=== PATIENT | female | born 1975 | race Caucasian/White ===

== ENCOUNTER 2021-11-21 03:56 | Emergency (ER) | payer OTHER, SELFPAY ==
[2021-11-21 03:58] VITALS: BP 113/78; PULSE 88; RESP 18; TEMP 36.6; O2SAT 100
--- NOTE | 2021-11-21 03:58 | ED.PSYCH ---
HPI - Psych General Chief Complaint: Psychiatric Symptoms <Janeth Dotson MD - Last Filed: 11/21/21 07:38> Stated Complaint: SI <Janeth Dotson MD - Last Filed: 11/21/21 07:38> Time Seen by Provider: 11/21/21 03:57 <Janeth Dotson MD - Last Filed: 11/21/21 07:38> Source: patient and EMS <Janeth Dotson MD - Last Filed: 11/21/21 07:38> Mode of arrival: EMS <Janeth Dotson MD - Last Filed: 11/21/21 07:38> Limitations: no limitations <Janeth Dotson MD - Last Filed: 11/21/21 07:38> History of Present Illness HPI Narrative: Patient presenting for evaluation of suicidal thoughts after drinking alcohol tonight and ingesting 8 xanax. Pt states that she feels that the world would be a better place without her. After taking the medication and drinking wine tonight, the patient presented to the police department and then EMS was contacted by PD. Pt transported here in stable condition. Pt endorsing many stressors including financial, family stressors. Patient states that she feels like she is burdensome to her family. Patient reported that she took the Xanax and drank wine tonight, and then when she laid down thought that it would be good if she did not wake up. Then when questioned if she reports feeling suicidal she denies overtly. Patient reports that she feels hopelessness in her daily life. Reports strained relationships with her mother, children. Patient does live in a duplex, she is not homeless. She denies other drug use. Patient denies history of suicide attempt in the past. <Janeth Dotson MD - Last Filed: 11/21/21 07:38> Related Data Home Medications: Home Medications Medication Instructions Recorded Confirmed eszopiclone mg 07/21/19 08/02/19 <Janeth Dotson MD - Last Filed: 11/21/21 07:38> Allergies/Adverse Reactions: Allergies Allergy/AdvReac Type Severity Reaction Status Date / Time No Known Allergies Allergy Verified 09/13/18 05:17 <Janeth Dotson MD - Last Filed: 11/21/21 07:38> Review of Systems Review of Systems: CONSTITUTIONAL: Denies fever, chills, or sweats. ENT: Denies rhinorrhea, congestion, sore throat, or otalgia. CARDIOVASCULAR: Denies chest pain, palpitations, or edema. RESPIRATORY: Denies cough or dyspnea. GASTROINTESTINAL: Denies abdominal pain, nausea, vomiting, or diarrhea. GENITOURINARY: Denies dysuria or hematuria. SKIN: Denies rash or itching. MUSCULOSKELETAL: Denies back pain, joint pain, or myalgia. NEUROLOGIC: Denies headache, numbness, or weakness. PSYCHIATRIC: Reports anxiety and depression <Janeth Dotson MD - Last Filed: 11/21/21 07:38> COUNT INCLUDES THE [facility] Past Medical History Medical History: Medical History Anxiety Crohn's colitis Depression Deviated septum History of GI bleed History of inguinal hernia x2 History of pneumonia History of sigmoidoscopy Hx of hemorrhoids Hx of intestinal obstruction Hx of ulcerative colitis Hx: UTI (urinary tract infection) IBS (irritable bowel syndrome) <Janeth Dotson MD - Last Filed: 11/21/21 07:38> Surgical History Surgical History: Surgical History History of appendectomy History of colonoscopy History of hysterectomy History of inguinal hernia repair x2 History of lumpectomy <Janeth Dotson MD - Last Filed: 11/21/21 07:38> Family History Family History: Family History Mother Hypertension Grandparent Heart disease Heart attack Colon cancer Grandparent Hypertension COPD (chronic obstructive pulmonary disease) Other Cerebrovascular accident Family history of cardiovascular disease <Janeth Dotson MD - Last Filed: 11/21/21 07:38> Social History Social History: Social History Smoking p
--- NOTE | 2021-11-21 05:06 | PC.NURSE ---
PT STATES SHE FORGOT TO USE THE SAMPLE CUP WHEN SHE USED THE BATHROOM.
[2021-11-21 05:21] LABS: Basophils Absolute Auto 0.1 K/mm3 (0.0-0.1); Basophils Percent Auto 0.8 % (0.2-1.2); Eosinophils Absolute Auto 0.1 K/mm3 (0-0.3); Eosinophils Percent Auto 0.6 % (0-4.4); Hematocrit 42.2 % (37.0-47.0); Hemoglobin 14.5 g/dL (12.0-15.0); Immature Granulocyte Absolute 0.06 K/mm3 (0.00-0.031); Immature Granulocyte Percent A 0.6 % (0-0.5); Lymphocytes Absolute Auto 2.77 K/mm3 (0.9-3.2); Lymphocytes Percent Auto 29.4 % (18.3-44.2); Mean Corpuscular HGB Conc 34.4 g/dl (32-36); Mean Corpuscular Hemoglobin 32.4 pg (26-34); Mean Corpuscular Volume 94.4 fl (80-100); Mean Platelet Volume 9.1 fl (7.4-10.4); Monocytes Absolute Auto 0.6 K/mm3 (0.1-0.6); Monocytes Percent Auto 6.5 % (2.6-8.5); Neutrophils Absolute Auto 5.9 K/mm3 (1.3-6.7); Neutrophils Percent Auto 62.1 % (45.5-73.1); Platelet Count Result 369 k/mm3 (150-375); Red Blood Count 4.47 M/mm3 (4.2-5.4); Red Cell Distribution Width 13.1 % (11.5-14.5); White Blood Count 9.4 K/mm3 (4.5-10.0)
[2021-11-21 05:34] LABS: Alanine Aminotransferase 18 U/L (4-35); Albumin Level 4.1 g/dL (3.5-5.1); Alkaline Phosphatase 100 U/L (38-126); Anion Gap 7 mmol/L (8-16); Aspartate Amino Transferase 26 U/L (14-36); Bilirubin,Total 0.1 mg/dL (0.2-1.3); Blood Urea Nitrogen 10 mg/dL (7-17); Calcium 9.2 mg/dL (8.4-10.2); Carbon Dioxide 27 mmol/L (22-30); Chloride 105 mmol/L (98-107); Estimated CRCL calculation 85 ml/min; Estimated Glomerular Filt Rate > 60; Ethanol 71 mg/dL (<10); Glucose 85 mg/dL (65-110); Sodium 139 mmol/L (137-145)
[2021-11-21 05:46] LABS: Appearance Urine Clear (Clear); Bilirubin Urine Negative (Negative); Blood Urine 1+ (Negative); Color Urine Yellow (Yellow); Glucose Urine UA Negative (Negative); Ketones Urine Negative (Negative); Leukocyte Esterase Ur Negative LEU/UL (Negative); Nitrate Urine Negative (Negative); Protein Urine Negative (Negative); Specific Grav Ur 1.025 (1.001-1.035); Urobilinogen Urine 0.2 mg/dL (<2.0); pH Urine 5.5 (5.0-9.0)
[2021-11-21 05:52] LABS: Mucus Urine Rare /lpf; Squamous Epithelial Cell Urine Few /hpf (Few); WBC Urine 0-3 /hpf
[2021-11-21 05:59] LABS: Add Urine Microscopic? YES
[2021-11-21 06:06] LABS: Amphetamine Screen Urine Positive (Negative); Barbiturate Screen Urine Negative (Negative); Benzodiazepines Screen Urine Positive (Negative); Cannabinoid Screen Urine Negative (Negative); Cocaine Screen Urine Negative (Negative); Methadone Screen Urine Negative (Negative); Opiate Screen Urine Negative (Negative); Phencyclidine Screen Urine Negative (Negative)
[2021-11-21 06:20] LABS: SARS-CoV-2 RNA PCR Negative
--- NOTE | 2021-11-21 06:22 | PC.NURSE ---
[facility] at [facility] notified that patient is medically cleared and needs to be evaluated at this time.
[2021-11-21 08:05] VITALS: BP 132/74; PULSE 86; RESP 14; O2SAT 99
[2021-11-21 09:13] LABS: Acetaminophen < 10 ug/mL (10-30); Salicylate < 1.0 mg/dL (2-20)
--- NOTE | 2021-11-21 09:55 | PC.NURSE ---
pt being made involuntary per Dr Dotson [facility] aware
--- NOTE | 2021-11-21 10:00 | PC.NURSE ---
pt noted to be in bed resting, chest rise and fall noted.
--- NOTE | 2021-11-21 11:11 | PC.NURSE ---
Paperwork faxed to [facility], and Elvis at this time.
--- NOTE | 2021-11-21 13:51 | PC.NURSE ---
call to Poison Control per request of [facility] has passed, cleared their protocol, pt is medically clear per Poison Control spoke with Rut.
--- NOTE | 2021-11-21 14:15 | PC.NURSE ---
pt somewhat upset about the need to stay and be transferred for evaluation, crying and in disagreement. educated on decision making of provider. aware of involuntary status. Back in room asked for security to sit close due to elopement possibility
--- NOTE | 2021-11-21 15:50 | PC.NURSE ---
PT ACCEPTED BY DR COTA AT [facility] PT WILL GO TO [facility] [phone] FOR REPORT ASKED US TO CALL AT [phone] FOR REPORT
--- NOTE | 2021-11-21 16:58 | PC.NURSE ---
[facility] accepted transfer to [place] eta 45min
[2021-11-21] MEDS: LORazepam (*CRX) 1 MG TABLET PO (17:50)
--- NOTE | 2021-11-21 18:04 | PC.NURSE ---
JUSTIN FROM DR ACEVEDO FOR ATIVAN 1MG PO PRIOR TO DEPT TO [facility]
--- NOTE | 2021-11-21 18:05 | PC.NURSE ---
PT GAVE MOTHER ALVARADO RING WITH KEYS ATTACHED PRIOR TO DEPARTING THE UNIT
== END 2021-11-21 18:07 ==
PROVIDERS: Emergency Provider Emergency Medicine; PCP Internal Medicine
DX: T42.4X2A Poisoning by benzodiazepines, intentional self-harm, initial encounter (principal); T51.0X2A Toxic effect of ethanol, intentional self-harm, initial encounter; F32.A Depression, unspecified; Z20.822 Contact with and (suspected) exposure to COVID-19
CPT/HCPCS: 36415; 80053; 80307; 81001; 81025; 84443; 85025; 99285; A9270; C9803; U0003; U0005

== ENCOUNTER 2022-12-10 17:54 | Emergency (ER) | payer OTHER, SELFPAY ==
--- NOTE | ~2022-12-10 | XR_ITS ---
EXAMINATION: XR chest 2V Exam Date/Time: 12/10/2022 18:45 CDT HISTORY: post covid prod cough x 4 days smokes and vapes Comparison: 11/18/2006. RESULT: Lines, tubes, and devices: None. Lungs and pleura: Clear. Cardiomediastinal silhouette: Stable. Other: No acute osseous or upper abdominal finding. IMPRESSION: No acute cardiopulmonary process. Reviewed, dictated and finalized at location K.
--- NOTE | 2022-12-10 17:58 | ED.SOB ---
HPI - SOB/Dyspnea General Chief Complaint: Shortness of Breath/Dyspnea Stated Complaint: SOB Time Seen by Provider: 12/10/22 18:18 Source: patient and RN notes reviewed Mode of arrival: ambulatory Limitations: no limitations History of Present Illness HPI Narrative: 47-year-old female presents concern for cough, shortness of breath, ?lung pain? in the back left side. She reports she got diagnosed with COVID on Thursday. She reports she has been taking Paxil of it, she has 1 dose left. She reports she started feeling a little bit better, and then has started feeling slightly worse with a productive cough. Reports her mother who also has COVID is currently hospitalized with pneumonia. She reports she has been taking Motrin as well MD elicited complaint: shortness of breath and cough Related Data Home Medications Medication Instructions Recorded Confirmed estradiol 1 mg tablet 1 mg PO DAILY 09/11/22 12/10/22 lorazepam 1 mg tablet 1 mg PO DAILY 09/11/22 12/10/22 methylphenidate HCl 36 mg 36 mg PO DAILY 12/10/22 12/10/22 tablet,extended release 24 hr (Concerta) nirmatrelvir 150 mg-ritonavir 100 1 ea PO DAILY 12/10/22 12/10/22 mg tablets in a dose pack (EUA) (Paxlovid) pravastatin 40 mg tablet 40 mg PO DAILY 12/10/22 12/10/22 Allergies Allergy/AdvReac Type Severity Reaction Status Date / Time No Known Allergies Allergy Verified 12/10/22 18:03 Review of Systems Review of Systems: CONSTITUTIONAL: Reports malaise, chills, sweats, fatigue, lightheadedness EYES: Denies visual changes, redness, or discharge. ENT: Reports rhinorrhea, congestion, sinus pain, otalgia and sore throat. CARDIOVASCULAR: Denies chest pain or edema. Reports fast heartbeat RESPIRATORY: Reports cough, exertional dyspnea. GASTROINTESTINAL: Denies abdominal pain, nausea, vomiting, diarrhea SKIN: Denies rash or itching. MUSCULOSKELETAL: Reports myalgia. NEUROLOGIC: Denies headache. All systems reviewed & are unremarkable except as noted in HPI and below PMFSH Past Medical History Medical History Anxiety Crohn's colitis Depression Deviated septum History of GI bleed History of inguinal hernia x2 History of pneumonia History of sigmoidoscopy Hx of hemorrhoids Hx of intestinal obstruction Hx of ulcerative colitis Hx: UTI (urinary tract infection) IBS (irritable bowel syndrome) Surgical History Surgical History History of appendectomy History of colonoscopy History of hysterectomy History of inguinal hernia repair x2 History of lumpectomy Family History Family History Mother Hypertension Grandparent Heart disease Heart attack Colon cancer Grandparent Hypertension COPD (chronic obstructive pulmonary disease) Other Cerebrovascular accident Family history of cardiovascular disease Social History Social History (Updated 09/11/22 @ 08:15 by ALAN Farmer) Smoking packs per day: 0.5 Smoking cigarettes per day: 10.0 Smoking status: Current every day smoker Alcohol intake: current Alcohol use details: occasional glass of wine Substance use type: prescription drug and other Lack of Transportation: No Lack of Food: Never True Current Housing: I Have Housing Concerned About Future Housing: No Difficulty Paying Gas/Electric Bills: No Difficulty Paying for Meds: No Currently Unemployed: No Education: Trade/Vocational Certificate Difficulty w/ Childcare or Family Care: No Gender identity (if verbalized by the patient): Female Comments At time of signature, agree with nursing past medical, surgical, social and family history. There is no relevant family history pertinent to the presenting complaint Exam Narrative: GENERAL: Well-appearing, well-nourished, and in no acute distress. HEAD: Normocephalic EYES:
[2022-12-10 18:04] VITALS: BP 120/77; PULSE 112; RESP 16; TEMP 37.4; O2SAT 99
== END 2022-12-10 19:38 | disposition home or self-care (01) ==
PROVIDERS: Emergency Provider Nurse Practitioner; PCP Family Medicine
DX: R05.9 Cough, unspecified (principal); F17.210 Nicotine dependence, cigarettes, uncomplicated; F41.9 Anxiety disorder, unspecified; K50.90 Crohn's disease, unspecified, without complications
CPT/HCPCS: 71046; 81003; 99213; G0463

== ENCOUNTER 2023-05-21 14:17 | Emergency (ER) | payer OTHER, SELFPAY ==
--- NOTE | ~2023-05-21 | XR_ITS ---
EXAMINATION: XR chest 1V portable INDICATION: Shortness of breath, COVID 19 positive TECHNIQUE: Portable AP chest at 1527 hours COMPARISON: 12/10/2022 FINDINGS: There are minimal airspace opacities in the left lung base. No pleural effusion or pneumoth orax. The cardiomediastinal silhouette is normal. IMPRESSION: 1. Minimal left basilar airspace opacity, consistent with atelectasis versus pneumonia. Reviewed, dictated and finalized at location A. IMPRESSION: 1. Minimal left basilar airspace opacity, consistent with atelectasis versus pn eumonia.
[2023-05-21 14:27] VITALS: BP 121/86; PULSE 99; RESP 18; TEMP 36.8; O2SAT 100
[2023-05-21 15:41] LABS: Basophils Absolute Auto 0.1 K/mm3 (0.0-0.1); Basophils Percent Auto 0.6 % (0.2-1.2); Eosinophils Percent Auto 0.2 % (0-4.4); Hematocrit 39.1 % (37.0-47.0); Hemoglobin 13.1 g/dL (12.0-15.0); Immature Granulocyte Absolute 0.02 K/mm3 (0.00-0.031); Immature Granulocyte Percent A 0.2 % (0-0.5); Lymphocytes Absolute Auto 1.02 K/mm3 (0.9-3.2); Lymphocytes Percent Auto 11.2 % (18.3-44.2); Mean Corpuscular HGB Conc 33.5 g/dl (32-36); Mean Corpuscular Hemoglobin 31.3 pg (26-34); Mean Corpuscular Volume 93.5 fl (80-100); Mean Platelet Volume 8.9 fl (7.4-10.4); Monocytes Absolute Auto 0.6 K/mm3 (0.1-0.6); Monocytes Percent Auto 6.8 % (2.6-8.5); Neutrophils Absolute Auto 7.4 K/mm3 (1.3-6.7); Platelet Count Result 345 k/mm3 (150-375); Red Blood Count 4.18 M/mm3 (4.2-5.4); Red Cell Distribution Width 12.9 % (11.5-14.5); White Blood Count 9.1 K/mm3 (4.5-10.0)
[2023-05-21 15:51] LABS: Alanine Aminotransferase 18 U/L (6-35); Albumin Level 4.4 g/dL (3.5-5.1); Alkaline Phosphatase 79 U/L (38-126); Anion Gap 7 mmol/L (8-16); Aspartate Amino Transferase 30 U/L (14-36); Bilirubin,Total 0.6 mg/dL (0.2-1.3); Blood Urea Nitrogen 7 mg/dL (7-17); Carbon Dioxide 24 mmol/L (22-30); Chloride 103 mmol/L (98-107); Estimated CRCL calculation 84 ml/min; Estimated Glomerular Filt Rate > 60; Glucose 107 mg/dL (65-110); Potassium 3.7 mmol/L (3.4-5.0); Sodium 134 mmol/L (137-145)
--- NOTE | 2023-05-21 16:02 | ED.GENADULT ---
HPI - General Adult General Chief complaint: Shortness of Breath/Dyspnea Stated complaint: +covid, SOB Time Seen by Provider: 05/21/23 14:51 Source: patient Mode of arrival: ambulatory Limitations: no limitations History of Present Illness HPI narrative: 48-year-old otherwise healthy here with complaints of generalized body aches, upper back pain, cough, nasal congestion since last few days. 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 She states that her head is foggy as well she did a home COVID test which came back positive Onset (ago): day(s) (2) Severity: moderate Pain Consistency: constant Relieving factors: none Exacerbating factors: none Associated symptoms: cough Related Data Home Medications Medication Instructions Recorded Confirmed estradiol 1 mg tablet 1 mg PO DAILY 09/11/22 12/10/22 lorazepam 1 mg tablet 1 mg PO DAILY 09/11/22 12/10/22 methylphenidate HCl 36 mg 36 mg PO DAILY 12/10/22 12/10/22 tablet,extended release 24 hr (Concerta) nirmatrelvir 150 mg-ritonavir 100 1 ea PO DAILY 12/10/22 12/10/22 mg tablets in a dose pack (Paxlovid) pravastatin 40 mg tablet 40 mg PO DAILY 12/10/22 12/10/22 Allergies Allergy/AdvReac Type Severity Reaction Status Date / Time amoxicillin AdvReac Hives Verified 05/21/23 14:18 Review of Systems Review of Systems: All systems reviewed & are unremarkable except as noted in HPI and below Constitutional: Constitutional: Reports no additional constitutional complaints Eyes: Eyes: Reports no additional eye complaints ENT: Reports system reviewed and no additional complaints, except as documented Cardiovascular: Cardiovascular: Reports no additional cardiovascular complaints Respiratory: Respiratory: Reports no additional respiratory complaints Gastrointestinal: Gastrointestinal: Reports no additional gastrointestinal complaints Musculoskeletal: Musculoskeletal: Reports no additional musculoskeletal complaints Integumentary/Breasts: Skin/Breast: Reports system reviewed and no additional complaints, except as docu Neurologic: Reports system reviewed and no additional complaints, except as documented PMFSH Past Medical History Medical History Anxiety Crohn's colitis Depression Deviated septum History of GI bleed History of inguinal hernia x2 History of pneumonia History of sigmoidoscopy Hx of hemorrhoids Hx of intestinal obstruction Hx of ulcerative colitis Hx: UTI (urinary tract infection) IBS (irritable bowel syndrome) Surgical History Surgical History History of appendectomy History of colonoscopy History of hysterectomy History of inguinal hernia repair x2 History of lumpectomy Family History Family History Mother Hypertension Grandparent Heart disease Heart attack Colon cancer Grandparent Hypertension COPD (chronic obstructive pulmonary disease) Other Cerebrovascular accident Family history of cardiovascular disease Social History Social History Smoking packs per day: 0.5 Smoking cigarettes per day: 10.0 Smoking status: Current every day smoker Alcohol intake: current Alcohol use details: occasional glass of wine Substance use type: prescription drug and other Lack of Transportation: No Lack of Food: Never True Current Housing: I Have Housing Concerned About Future Housing: No Difficulty Paying Gas/Electric Bills: No Difficulty Paying for Meds: No Currently Unemployed: No Education: Trade/Vocational Certificate Difficulty w/ Childcare or Family Care: No Gender identity (if verbalized by the patient): Female Exam Narrative: GENERAL: Well-appearing
== END 2023-05-21 16:32 | disposition home or self-care (01) ==
PROVIDERS: Emergency Provider Family Medicine; PCP Family Medicine
DX: U07.1 COVID-19 (principal); K51.90 Ulcerative colitis, unspecified, without complications; F41.9 Anxiety disorder, unspecified; F32.A Depression, unspecified; F17.210 Nicotine dependence, cigarettes, uncomplicated; Z87.01 Personal history of pneumonia (recurrent); Z87.440 Personal history of urinary (tract) infections; Z90.710 Acquired absence of both cervix and uterus; R91.8 Other nonspecific abnormal finding of lung field
CPT/HCPCS: 36415; 71045; 80053; 85025; 99283

== ENCOUNTER 2024-05-10 18:48 | Emergency (ER) | payer OTHER, MEDICAID, SELFPAY ==
--- NOTE | ~2024-05-10 | XR_ITS ---
EXAMINATION: XR chest 2V DATE: 05/10/2024 19:57 INDICATION: Left upper back pain. Influenza A. TECHNIQUE: PA and lateral views of the chest were obtained. COMPARISON: Chest radiograph dated 05/21/2023 FINDINGS: The lungs are clear with no focal airspace opacities, pulmonary edema, pleural effusion or pneumothor ax. The cardiomediastinal silhouette is normal. Mild S-shaped curvature of the thoracic and lumbar sp ine with mild spondylosis. IMPRESSION: 1. No acute cardiopulmonary disease. Reviewed, dictated and finalized at location A.
[2024-05-10 19:05] VITALS: BP 124/73; PULSE 85; RESP 18; TEMP 36.4; O2SAT 100
--- NOTE | 2024-05-10 19:40 | ECG_ITS ---
Test Date: 2024-05-10 21:13:12 Measurements Intervals [place] Rate: 72 P: 37 OK: 166 QRS: 45 QRSD: 81 T: 30 QT: 369 QTc: 405 Interpretive Statements SINUS RHYTHM NONSPECIFIC T-WAVE ABNORMALITY ABNORMAL ECG No previous ECG available for comparison Electronically Signed On 05-11-2024 10:19:14 CDT by Obie Castro M.D.
--- NOTE | 2024-05-10 20:30 | ED.GENADULT ---
HPI - General Adult General Chief complaint: Unspecified Stated complaint: L shoulder pn, concern for PNA Time Seen by Provider: 05/10/24 19:40 Source: patient Mode of arrival: ambulatory Limitations: no limitations History of Present Illness HPI narrative: Patient is a 49-year-old female who presents the ED with report of left-sided shoulder/upper back pain. Patient reports she was diagnosed with influenza B 2 days ago. She was started on tamiflu. States she has been resting at home and slept for almost 3 days straight. She then woke up this morning with pain throughout her L upper back/scapular region. Pain has been radiating down her L mid back. Has been constant throughout the day. No significant worsening with movement. States she has been diagnosed with pneumonia previously and symptoms felt similar. She does have a mild dry cough. Denies shortness of breath. Denies chest pain. Denies history of blood clots or cardiovascular disease. History of hyperlipidemia. Related Data Home Medications Medication Instructions Recorded Confirmed estradiol 1 mg tablet 1 mg PO DAILY 09/11/22 05/28/23 lorazepam 1 mg tablet 1 mg PO DAILY 09/11/22 05/28/23 methylphenidate HCl 36 mg 36 mg PO DAILY 12/10/22 05/28/23 tablet,extended release 24 hr (Concerta) Allergies Allergy/AdvReac Type Severity Reaction Status Date / Time amoxicillin AdvReac Hives Verified 05/27/23 14:04 Review of Systems Review of Systems: All systems reviewed & are unremarkable except as noted in HPI. All systems reviewed & are unremarkable except as noted in HPI and below PMFSH Past Medical History Medical History Anxiety Crohn's colitis Depression Deviated septum History of GI bleed History of inguinal hernia x2 History of pneumonia History of sigmoidoscopy Hx of hemorrhoids Hx of intestinal obstruction Hx of ulcerative colitis Hx: UTI (urinary tract infection) IBS (irritable bowel syndrome) Surgical History Surgical History History of appendectomy History of colonoscopy History of hysterectomy History of inguinal hernia repair x2 History of lumpectomy Family History Family History Mother Hypertension Grandparent Heart disease Heart attack Colon cancer Grandparent Hypertension COPD (chronic obstructive pulmonary disease) Other Cerebrovascular accident Family history of cardiovascular disease Social History Social History Smoking packs per day: 0.5 Smoking cigarettes per day: 10.0 Smoking status: Current every day smoker Alcohol intake: current Alcohol use details: occasional glass of wine Substance use type: prescription drug and other Lack of Transportation: No Lack of Food: Never True Current Housing: I Have Housing Concerned About Future Housing: No Difficulty Paying Gas/Electric Bills: No Difficulty Paying for Meds: No Currently Unemployed: No Education: Trade/Vocational Certificate Difficulty w/ Childcare or Family Care: No Gender identity (if verbalized by the patient): Female Exam Narrative: GENERAL: Well appearing, well-nourished, non-toxic, in no acute distress. HEAD: Normocephalic, atraumatic. RESPIRATORY: Airway patent, respirations nonlabored. Clear to auscultation bilaterally, no rales, rhonchi, wheezing. No focal lung sounds. CARDIOVASCULAR: Regular rate and rhythm without murmurs, rubs, or gallops. ABDOMINAL: Soft, nontender, nondistended. Normoactive BS. MUSCULOSKELETAL: Moves all extremities. No gross deformities. No peripheral edema. No reproducible pain throughout L scapula/upper back, midline spine. No pain with ROM of LUE. SKIN: Warm, dry, normal color. NEURO: A&O X3. Speech clear. Cranial nerves II-XII grossly intac
[2024-05-10 20:57] LABS: Basophils Absolute Auto 0.1 K/mm3 (0.0-0.1); Basophils Percent Auto 0.8 % (0.2-1.2); Eosinophils Absolute Auto 0.1 K/mm3 (0-0.3); Eosinophils Percent Auto 0.6 % (0-4.4); Immature Granulocyte Absolute 0.02 K/mm3 (0.00-0.031); Immature Granulocyte Percent A 0.2 % (0-0.5); Lymphocytes Absolute Auto 2.32 K/mm3 (0.9-3.2); Lymphocytes Percent Auto 26.7 % (18.3-44.2); Mean Corpuscular HGB Conc 32.6 g/dl (32-36); Mean Corpuscular Hemoglobin 30.9 pg (26-34); Mean Corpuscular Volume 94.9 fl (80-100); Mean Platelet Volume 8.8 fl (7.4-10.4); Monocytes Absolute Auto 0.4 K/mm3 (0.1-0.6); Monocytes Percent Auto 4.4 % (2.6-8.5); Neutrophils Absolute Auto 5.9 K/mm3 (1.3-6.7); Neutrophils Percent Auto 67.3 % (45.5-73.1); Platelet Count Result 366 k/mm3 (150-375); Red Blood Count 4.53 M/mm3 (4.2-5.4); Red Cell Distribution Width 12.4 % (11.5-14.5); White Blood Count 8.7 K/mm3 (4.5-10.0)
[2024-05-10 21:09] LABS: Alanine Aminotransferase 18 U/L (6-35); Albumin Level 4.3 g/dL (3.5-5.1); Alkaline Phosphatase 88 U/L (38-126); Anion Gap 4 mmol/L (4-12); Aspartate Amino Transferase 26 U/L (14-36); Bilirubin,Total 0.3 mg/dL (0.2-1.3); Blood Urea Nitrogen 12 mg/dL (7-17); Calcium 9.2 mg/dL (8.4-10.2); Carbon Dioxide 30 mmol/L (22-30); Chloride 103 mmol/L (98-107); Estimated CRCL calculation 57 ml/min; Estimated Glomerular Filt Rate > 60; Glucose 103 mg/dL (65-110); Lipase 173 U/L (23-300); Potassium 4.5 mmol/L (3.4-5.0); Sodium 137 mmol/L (137-145)
[2024-05-10 21:21] LABS: Troponin I < 0.012 ng/mL (0.000-0.034)
--- NOTE | 2024-05-10 21:48 | PC.NURSE ---
Pt denies chest pain and SOB. C/o 11/26 left shoulder pain. Breathing is equal and unlabored. Pt updated by this RN at this time. Pt has no additional requests.
[2024-05-10 21:51] LABS: Prothrombin Time 13.6 Seconds (11.1-14.7)
[2024-05-10 21:52] LABS: Partial Thromboplastin Time 33.4 Seconds (22.3-36.8)
[2024-05-10 22:10] LABS: D Dimer 0.34 ug/mL (<0.48)
[2024-05-10 22:47] VITALS: BP 120/76; PULSE 81; RESP 17; TEMP 36.6; O2SAT 100
== END 2024-05-10 22:49 | disposition home or self-care (01) ==
PROVIDERS: Emergency Provider Physician Assistant
DX: M54.6 Pain in thoracic spine (principal); J10.1 Influenza due to other identified influenza virus with other respiratory manifestations; K51.90 Ulcerative colitis, unspecified, without complications; Z90.710 Acquired absence of both cervix and uterus; Z87.01 Personal history of pneumonia (recurrent); Z87.440 Personal history of urinary (tract) infections; F17.210 Nicotine dependence, cigarettes, uncomplicated
CPT/HCPCS: 36415; 71046; 80053; 83690; 84484; 85025; 85380; 85610; 85730; 93005; 99284

== ENCOUNTER 2024-07-07 11:58 | Outpatient (CLI) | payer OTHER, MEDICAID, SELFPAY ==
[2024-07-08 10:24] LABS: FSH 66.2 mIU/mL
== END 2024-07-07 11:59 | disposition home or self-care (01) ==
PROVIDERS: Visit Provider Obstetrics & Gynecology
DX: N95.1 Menopausal and female climacteric states (principal)
CPT/HCPCS: 36415; 82670; 83001; 84443

== ENCOUNTER 2024-07-16 23:26 | Emergency (ER) | payer OTHER, MEDICAID, SELFPAY ==
--- NOTE | ~2024-07-16 | CT_ITS ---
EXAMINATION: CT abdomen pelvis w con DATE: 07/17/2024 01:25 INDICATION: Abdominal pain TECHNIQUE: Computed tomography (CT) of the abdomen and pelvis was performed with 100 mL Omnipaque-350 intravenous contrast. Automated exposure control and iterative reconstruction technique were employe d. The dose-length product was 310.45 mGy-cm. COMPARISON: 08/23/2018 FINDINGS: Calcified left lower lobe nodule consistent with old granulomatous disease. Mild atelectasis in the d ependent aspect of the bilateral lower lobes. Heart size is normal. No pericardial or pleural effusio n. Mild focal hepatic steatosis at the ligamentum teres. Gallbladder, pancreas, bilateral kidneys and right adrenal gland are normal. 1.1 cm left renal nodule. A few subcentimeter low-attenuation spleni c cyst. Large amount of stool in the proximal colon. No dilated loops of gas-filled bowel to suggest obstruction. Suture line at the tip the cecum likely related to prior appendectomy. Bladder is normal . The uterus is not identified and has likely been surgically resected. 1.9 cm left ovarian cyst/foll icle. No free intraperitoneal gas or fluid. No pathologically enlarged abdominal or pelvic lymphadeno halle. IMPRESSION: 1. No acute intra-abdominal/pelvic process. 2. 1.1 cm left adrenal nodule statistically most likely to represent adenoma but would recommend foll ow-up adrenal protocol pre and postcontrast CT for further evaluation. Reviewed, dictated and finalized at location A. [facility] ATTENDANT IMPRESSION: 1. No acute intra-abdominal/pelvic process. 2. 1.1 cm left adrenal nodule statistically most likely to represent adenoma bu t would recommend follow-up adrenal protocol pre and postcontrast CT for furthe r evaluation.
[2024-07-16 23:33] VITALS: PULSE 102; RESP 18; TEMP 35.6; O2SAT 100
[2024-07-17 00:07] LABS: Basophils Absolute Auto 0.1 K/mm3 (0.0-0.1); Basophils Percent Auto 0.7 % (0.2-1.2); Eosinophils Absolute Auto 0.1 K/mm3 (0-0.3); Hemoglobin 13.4 g/dL (12.0-15.0); Immature Granulocyte Absolute 0.03 K/mm3 (0.00-0.031); Immature Granulocyte Percent A 0.4 % (0-0.5); Lymphocytes Absolute Auto 2.55 K/mm3 (0.9-3.2); Lymphocytes Percent Auto 31.1 % (18.3-44.2); Mean Corpuscular HGB Conc 32.7 g/dl (32-36); Mean Corpuscular Hemoglobin 30.6 pg (26-34); Mean Corpuscular Volume 93.6 fl (80-100); Mean Platelet Volume 9.2 fl (7.4-10.4); Monocytes Absolute Auto 0.6 K/mm3 (0.1-0.6); Monocytes Percent Auto 6.8 % (2.6-8.5); Neutrophils Absolute Auto 4.9 K/mm3 (1.3-6.7); Platelet Count Result 376 k/mm3 (150-375); Red Blood Count 4.38 M/mm3 (4.2-5.4); Red Cell Distribution Width 12.7 % (11.5-14.5); White Blood Count 8.2 K/mm3 (4.5-10.0)
[2024-07-17 00:35] LABS: Alanine Aminotransferase 15 U/L (6-35); Albumin Level 4.4 g/dL (3.5-5.1); Alkaline Phosphatase 89 U/L (38-126); Anion Gap 4 mmol/L (4-12); Aspartate Amino Transferase 24 U/L (14-36); Bilirubin,Total 0.3 mg/dL (0.2-1.3); Blood Urea Nitrogen 14 mg/dL (7-17); Calcium 9.1 mg/dL (8.4-10.2); Carbon Dioxide 25 mmol/L (22-30); Chloride 107 mmol/L (98-107); Estimated CRCL calculation 57 ml/min; Estimated Glomerular Filt Rate > 60; Glucose 86 mg/dL (65-110); Lipase 95 U/L (23-300); Potassium 3.8 mmol/L (3.4-5.0); Sodium 136 mmol/L (137-145)
[2024-07-17] MEDS: ONDANSETRON INJ 4 MG/2 ML VIAL IV PUSH (00:37)
[2024-07-17] MEDS: SODIUM CHLORIDE 0.9% IV 1,000 ML 999 ML IV CONT (00:37)
[2024-07-17] MEDS: DICYCLOMINE HCL INJ 20 MG/2 ML VIAL IM (00:37)
[2024-07-17 01:20] LABS: Add Urine Microscopic? YES; Appearance Urine Cloudy (Clear); Bacteria Urine 1+ /hpf; Bilirubin Urine Negative (Negative); Blood Urine Negative (Negative); Color Urine Yellow (Yellow); Glucose Urine UA Negative (Negative); Ketones Urine Negative (Negative); Leukocyte Esterase Ur Trace LEU/UL (Negative); Need Manual Microscopic Reviewed; Nitrate Urine Negative (Negative); Non Pathogenic Casts 0-2; Protein Urine Negative (Negative); RBC Urine 21-50 /hpf (0-2); Specific Grav Ur 1.014 (1.001-1.035); Squamous Epithelial Cell Urine Moderate /hpf (Few); Urobilinogen Urine 0.2 mg/dL (<2.0); pH Urine 5.5 (5.0-9.0)
--- NOTE | 2024-07-17 01:31 | ED_ITS ---
HPI - General Adult General Chief complaint: Abdominal Pain Stated complaint: abdominal pain. Time Seen by Provider: 07/16/24 23:55 History of Present Illness HPI narrative: Patient is a 49-year-old female who presents emergency department with chief complaint of abdominal pain. Patient reports that she has discomfort throughout her abdomen reports she has had a bowel obstruction before in the past this started having some nausea vomiting patient reports she was concerned that she may a bowel obstruction developing patient also reports she has history of Crohn's and has had some generalized malaise with this as well. Related Data Home Medications ?Medication ?Instructions ?Recorded ?Confirmed ?Last Taken ?Type estradiol 1 mg tablet 1 mg PO DAILY 09/11/22 05/28/23 Unknown History lorazepam 1 mg tablet 1 mg PO DAILY 09/11/22 05/28/23 Unknown History methylphenidate HCl 36 mg 36 mg PO DAILY 12/10/22 05/28/23 Unknown History tablet,extended release 24 hr (Concerta) Allergies Allergy/AdvReac Type Severity Reaction Status Date / Time amoxicillin AdvReac Hives Verified 05/27/23 14:04 Review of Systems 2 Review of Systems: A 10 system review of systems was completed on the patient and is negative except for what is stated in the HPI. Nursing and ancillary documentation was reviewed. [facility] Past Medical History Medical History Crohn's colitis History of sigmoidoscopy Anxiety Depression Hx: UTI (urinary tract infection) History of GI bleed History of inguinal hernia x2 Hx of hemorrhoids IBS (irritable bowel syndrome) Hx of intestinal obstruction Hx of ulcerative colitis History of pneumonia Deviated septum Surgical History Surgical History History of colonoscopy History of hysterectomy History of lumpectomy History of inguinal hernia repair x2 History of appendectomy Family History Family History Mother Hypertension Grandparent Heart disease Heart attack Colon cancer Grandparent Hypertension COPD (chronic obstructive pulmonary disease) Other Cerebrovascular accident Family history of cardiovascular disease Social History Social History Smoking packs per day: 0.5 Smoking cigarettes per day: 10.0 Smoking status: Current every day smoker Alcohol intake: current Alcohol use details: occasional glass of wine Substance use type: prescription drug and other Lack of Transportation: No Lack of Food: Never True Current Housing: I Have Housing Concerned About Future Housing: No Difficulty Paying Gas/Electric Bills: No Difficulty Paying for Meds: No Currently Unemployed: No Education: Trade/Vocational Certificate Difficulty w/ Childcare or Family Care: No Gender identity (if verbalized by the patient): Female Exam 2 Narrative: GENERAL: Well-appearing, well-nourished, and in no acute distress. HEAD: Normocephalic, atraumatic. EYES: PERRLA and EOMI. ENT: Nares clear, no rhinorrhea or epistaxis. Mucous membranes moist. NECK: Supple. CHEST: Clear to auscultation. No respiratory distress. HEART: Regular rate and rhythm. No murmur heard. Normal peripheral pulses. ABDOMEN: Soft, diffuse mild tenderness, nondistended, normal active bowel sounds. EXTREMITIES: Normal range of motion. No edema. SKIN: Warm, dry, no rash. NEURO: No focal deficits. Alert and oriented x3. PSYCH: Normal mood and affect. Course Vital Signs Vital signs: Vital Signs Temperature 35.6 C L 07/16/24 23:33 Pulse Rate 102 H 07/16/24 23:33 Respiratory Rate 18 07/16/24 23:33 Pulse Oximetry 100 07/16/24 23:33 Oxygen Delivery Room Air 07/16/24 23:33 Temperature 35.6 C L 07/16/24 23:33 Pulse Rate 77 07/17/24 04:08 Respiratory Rate 14 07/17/24 04:08 Blood Pressure 105/64 07/17/24 04:08 Pulse Oximetry 99 07/17/24 04:08 Oxygen Delivery Room Air 07/16/24 23:33 Medical Decision Making Vital Signs Vital Signs: Vital Signs Temperature 35.6 C L 07/16/24 23:33 Pulse Rate 102 H 07/16/24 23:33 Respiratory Rate 18 07/16/24 23:33 Pulse Oximetry 100 07/16/24 23:33 Oxygen Delivery Room Air 07/16/24 23:33 Temperature 35.6 C L 07/16/24 23:33 Pulse Rate 77 07/17/24 04:08 Respiratory Rate 14 07/17/24 04:08 Blood Pressure 105/64 12/29/24 04:08 Pulse Oximetry 99 07/17/24 04:08 Oxygen Delivery Room Air 07/16/24 23:33 Lab Data 07/17/24 00:00 07/17/24 00:00 Labs: Lab Results 07/17/24 07/17/24 07/17/24 Range/Units 00:00 00:42 01:32 WBC 8.2 (4.5-10.0) K/mm3 RBC 4.38 (4.2-5.4) M/mm3 Hgb 13.4 (12.0-15.0) g/dL Hct 41.0 (37.0-47.0) % MCV 93.6 (80-100) fl MCH 30.6 (26-34) pg MCHC 32.7 (32-36) g/dl RDW 12.7 (11.5-14.5) % Plt Count 376 H (150-375) k/mm3 MPV 9.2 (7.4-10.4) fl Immature Gran % (Auto) 0.4 (0-0.5) % Neut % (Auto) 60.0 (45.5-73.1) % Lymph % (Auto) 31.1 (18.3-44.2) % [place] % (Auto) 6.8 (2.6-8.5) % Eos % (Auto) 1.0 (0-4.4) % Baso % (Auto) 0.7 (0.2-1.2) % Lymph # (Auto) 2.55 (0.9-3.2) K/mm3 [place] # (Auto) 0.6 (0.1-0.6) K/mm3 Eos # (Auto) 0.1 (0-0.3) K/mm3 Baso # (Auto) 0.1 (0.0-0.1) K/mm3 Abs Immat Gran (auto) 0.03 (0.00-0.031) K/mm3 Absolute Neuts (auto) 4.9 (1.3-6.7) K/mm3 Absolute Nucleated RBC 0.000 (0.0-0.012) K/mm3 Nucleated RBC % 0.0 (0.0-0.2) % Sodium 136 L (137-145) mmol/L Potassium 3.8 (3.4-5.0) mmol/L Chloride 107 (98-107) mmol/L Carbon Dioxide 25 (22-30) mmol/L Anion Gap 4 (4-12) mmol/L BUN 14 (7-17) mg/dL Creatinine 0.90 (0.7-1.0) mg/dL Estim Creat Clear Calc 57 ml/min Estimated GFR > 60 (59 - ) Glucose 86 (65-110) mg/dL Calcium 9.1 (8.4-10.2) mg/dL Total Bilirubin 0.3 (0.2-1.3) mg/dL AST 24 (14-36) U/L ALT 15 (6-35) U/L Alkaline Phosphatase 89 (38-126) U/L Total Protein 7.0 (6.3-8.2) g/dL Albumin 4.4 (3.5-5.1) g/dL Lipase 95 (23-300) U/L Urine Color Yellow (Yellow) Urine Appearance Cloudy H (Clear) Urine pH 5.5 (5.0-9.0) Ur Specific [place] 1.014 (1.001-1.035) Urine Protein Negative (Negative) mg/dL Urine Glucose (UA) Negative (Negative) mg/dL Urine Ketones Negative (Negative) mg/dL Ur Blood (Man) Negative (Negative) Urine Nitrate Negative (Negative) Urine Bilirubin Negative (Negative) Urine Urobilinogen 0.2 (<2.0) mg/dL Add Ur Microanalysis Reviewed Leukocyte Esterase Rfl Trace H (Negative) SHEN/UL Urine RBC 21-50 H (0-2) /hpf Urine WBC 11-20 H (0-3) /hpf Ur Squamous Epith Cells Moderate (Few) /hpf Urine Bacteria 1+ H /hpf Urine Casts 0-2 POC Urine HCG, Qual Negative (Negative) Discharge Plan Discharge Clinical Impression: Abdominal pain, UTI (urinary tract infection) Patient Disposition: Home, Self-Care Condition: Stable Instructions: Antibiotic Form, Constipation (ED), Urinary Tract Infection in Women (ED), Abdominal Pain (ED) Patient Language: Georgian Prescriptions: New nitrofurantoin macrocrystal 100 mg capsule 100 mg PO Q12H 5 Days Qty: 10 5RF Rx Instructions: must administer with a meal/food ondansetron 4 mg tablet,disintegrating 4 mg PO Q8H PRN (Reason: nausea and vomiting) Qty: 10 0RF dicyclomine 20 mg tablet 20 mg PO QID PRN (Reason: abdominal discomfort) Qty: 20 0RF No Action methylphenidate HCl [Concerta] 36 mg tablet extended release 24hr 36 mg PO DAILY lorazepam 1 mg tablet 1 mg PO DAILY estradiol 1 mg tablet 1 mg PO DAILY Follow-up/Referrals: Bubba Lizarraga MD [Primary Care Provider] - Time of Disposition: 04:31
[2024-07-17 01:35] LABS: BEDSIDEPREGUCG Negative (Negative)
[2024-07-17 04:08] VITALS: BP 105/64; PULSE 77; RESP 14; O2SAT 99
--- OUTSIDE RECORDS SUMMARY | 2024-07-24 00:43 | XMS_ITS | Patient Health Summary ---
Author Organization [facility] [employer] Address [address] [place] [address] Care Team Providers Care Bad Cloth Checker Name Role Phone Brenda Cleaning MD Primary Care Provider [phone] Note from [facility],non-owned Affiliates and Associated Physician Practices is amultiple site organization consisting of ambulatory clinics and hospital sitesin [place], [place], [place] and [place]. This disclosure is being madepursuant to the Care Everywhere program and may not contain all information available regarding this patient. Last updated 18.[facility] Allergies No known active allergies Medications * Be aware that medications may not be up to date on this document. Alwaysverify current medications with the patient. * pravastatin (Pravachol) 40 MG tablet(Started 05/19/2022) Take 1 (one) tablet by mouth once daily * busPIRone (Buspar) 5 MG tablet(Started 09/10/2022) Take 1 (one) tablet by mouth 2 times daily * estradiol (Estrace) 1 MG tablet(Started 08/21/2022) Take 1 (one) tablet by mouth once daily Immunizations * INFLUENZA VACCINE, QUADR. (FLUZONE; FLULAVAL; FLUARIX; AFLURIA QUADRIVALENT; 6MO+), 0.5 ML (IIV4)(Given 05/23/2021, 10/17/2019) * TD(Given 07/20/2003, 07/20/2003, 08/31/2000, 08/31/2000) * TDAP, HISTORIC VACCINE(Given 05/23/2021, 08/10/2017) * Td (Adult), 2 Lf Tetanus Toxoid, Adsorbed, Pf(Given 07/20/2003, 08/31/2000) Social History Tobacco Use Types Packs/Day Years Used Date Smoking Tobacco: Some Days Cigarettes Smokeless Tobacco: Never Alcohol Use Standard Drinks/Week Comments Yes 0 (1 standard drink = 0.6 oz pur e alcohol) social Sex and Gender Information Value Date Recorded Sex Assigned at Not on file Gender Identity Not on file Sexual Orientation Not on file Last Filed Vital Signs Vital Sign Reading Time Taken Comments Blood Pressure 127/70 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 Pulse 115 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 Temperature 36.8 ??C (98.2 ??F) 05/25/2023 10:[address] Respiratory Rate 18 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 Oxygen Saturation 96% 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 Inhaled Oxygen Concentration - - Weight 67 kg (147 lb 9.6 oz) 09/30/2022 1:18 PM CDT Height 162.6 cm (5' 4 ) 09/30/2022 1:18 PM CDT Body Mass Index 25.34 09/30/2022 1:18 PM CDT Procedures * NM NASAL ENDOSCOPY,DX(Performed 09/30/2022) Performed for Deviated septum Results * NM NASAL ENDOSCOPY,DX (09/30/2022 1:48 PM CDT) Narrative Aravind Landeros MD - 09/30/2022 1:48 PM CDT Aravind Landeros MD ? 09/30/2022 ??1:53 PM Procedure- ??rigid nasal endoscopy The procedure and alternatives were explained to the patient and verbal consent was obtained. The patient's bilateral nasal cavities were anesthetized with mixture of topical lidocaine and oxymetazoline. A zero degree rigid ??endoscope was advanced into both nasal cavities for evaluations. The patient tolerated the procedure well and there were no complications. Findings- There are no nasal masses, mucosal lesions, polyps, or purulent drainage. There are no septal perforations. Nasopharynx clear. Aravind Landeros MD PROCEDURE/MINOR SURG ICAL ORDERABLES Care Teams Bad Cloth Checker Relationship Specialty Start Date End Date Brenda Cleaning MD [address] [place] [phone] PCP - General 06/02/18
--- OUTSIDE RECORDS SUMMARY | 2024-07-24 00:43 | XMS_ITS | Referral Summary ---
Author Organization [facility] [employer] Address [address] [place] [address] Care Team Providers Care Textile Stylist Name Role Phone Brenda Cleaning MD Primary Care Provider [phone] Source Comments [facility] [employer],non-owned Affiliates and Associated Physician Practices is amultiple site organization consisting of ambulatory clinics and hospital sitesin [place], [place], [place] and [place]. This disclosure is being madepursuant to the Care Everywhere program and may not contain all information available regarding this patient. Last updated 18.[facility] [employer] Allergies No known active allergies Medications * Be aware that medications may not be up to date on this document. Alwaysverify current medications with the patient. Medication Sig Dispensed Refills Start Date End Date Status pravastatin (Pravachol) 40 MG tablet Take 1 (one) tablet by mouth once daily 05/19/2022 Active busPIRone (Buspar) 5 MG tablet Take 1 (one) tablet by mouth 2 times daily 09/10/2022 Active estradiol (Estrace) 1 MG tablet Take 1 (one) tablet by mouth once daily 08/21/2022 Active Immunizations Name Administration Dates Next Due INFLUENZA VACCINE, QUADR. 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 Pulse 115 05/25/2023 10:21 PM BIKE DESIGNER Temperature 36.8 ??C (98.2 ??F) 05/25/2023 10:[address] Respiratory Rate 18 05/25/2023 10:21 PM BIKE DESIGNER Oxygen Saturation 96% 05/25/2023 10:21 PM BIKE DESIGNER Inhaled Oxygen Concentration - - Weight 67 kg (147 lb 9.6 oz) 09/30/2022 1:18 PM CDT Height 162.6 cm (5' 4 ) 09/30/2022 1:18 PM CDT Body Mass Index 25.34 09/30/2022 1:18 PM CDT Plan of Treatment Not on file Care Teams Textile Stylist Relationship Specialty Start Date End Date Brenda Cleaning MD [address] [place] [address] [place] [phone] PCP - General 06/02/18
--- OUTSIDE RECORDS SUMMARY | 2024-07-24 00:43 | XMS_ITS | Encounter Summary ---
Author Organization [facility] Address [address] [place] [address] Care Team Providers Care Rotary Cutter Name Role Phone Brenda Cleaning MD Primary Care Provider Reason for Visit * Reason Comments Establish Care Nose Problem Deviated septum * Consult, Test & Treat (Routine) - Closed Specialty Diagnoses / Procedures Referred By Contac t Referred To Contact Diagnoses Other specified disorders of nose and nasal sinuses Deviated nasal septum Modesto Borja MD [address] [place] [address] Aravind Landeros MD [address] [place] [address] [place] [address] Referral ID Status Reason Start Date Expiration Date Visits Re quested Visits Authorized [id number] Closed 09/23/2022 09/23/2023 1 1 Encounter Details Date Type Department Care Team (Late st Contact Info) Description 09/30/2022 1:15 PM CDT Office Visit [facility] [address] [place] [phone] Aravind Landeros MD [address] [place] [address] [place] [address] Deviated septum (Primary Dx) Social History Tobacco Use Types Packs/Day Years Used Date Smoking Tobacco: Some Days Cigarettes Smokeless Tobacco: Never Alcohol Use Standard Drinks/Week Comments Yes 0 (1 standard drink = 0.6 oz pur e alcohol) social Sex and Gender Information Value Date Recorded Sex Assigned at Not on file Gender Identity Not on file Sexual Orientation Not on file documented as of this encounter Last Filed Vital Signs Vital Sign Reading Time Taken Comments Blood Pressure 115/71 09/30/2022 1:18 PM CDT Pulse 80 09/30/2022 1:18 PM CDT Temperature - - Respiratory Rate - - Oxygen Saturation - - Inhaled Oxygen Concentration - - Weight 67 kg (147 lb 9.6 oz) 09/30/2022 1:18 PM CDT Height 162.6 cm (5' 4 ) 09/30/2022 1:18 PM CDT Body Mass Index 25.34 09/30/2022 1:18 PM CDT documented in this encounter Patient Instructions * Patient Instructions* Bonita Burnett MA - 09/30/2022 8:42 AM CDT Thank you for visiting [facility] Otolaryngology - Head & Neck Surgery. We appreciate your confidence in allowing us to participate in your health care. You may receive a survey about your visit with us today. Making our patients happy isn???t just happy talk; it???s ourmission. Please tell us if we made the right impression on you- and how we can serve you better. Please SAVE the information below, it will assist you when it???s time for you to contact us. To MAKE - CHANGE - CANCEL an office appointment If you become ill, need to be seen before your next scheduled appointment, or need to cancel or reschedule an appointment, please call our office at [phone] Thursday through Thursday from 8:00 am to4:30 pm. You can also request a routine appointment through your [employer] account. Prescription Refills Contact your pharmacy to request all refills. The pharmacy will need to fax the request to us at . Please allow a minimum of 48-72 hours for your prescription to be completed. Medical Emergency / After Hours Contact Information If you have a medical emergency, please call 911 or go to the nearest emergency room. For urgent medical calls, which cannot wait until the office opens, please call the medical exchange at and ask the refinery operator assistant to page the ENT physician manager production. *Caller ID blocking service will need to be turned off for your call to be returned. We also specialize in Hearing Aids, Allergy testing, swallowing disorders, voice problems, cancer diagnosis, and so much more. Visit our website at [email or web address] for information about our practice and an interactive health encyclopedia. documented in this encounter Progress Notes * Aravind Landeros MD - 09/30/2022 1:47 PM CDT History of Present Illness: 47 year old who presents with nasal airway complaints. She has been seen by Dr. Modesto Borja, referred here for consultation of septoplasty and rhinoplasty. 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 The patient describes symptoms as nasal congestion, sinus infections, nasal discomfort, snoring at night. She has been managed by her PCP for these symptoms for many years. She was then referred to Dr. Borja where they briefly discussed nasal surgery. She is unsure what caused the onset of her nasal symptoms. The patient currently uses Astelin. The nasal symptoms are worse on the- Right The patient has history of nasal or sinus surgery- no The patient has history of nasal steroid use- yes The patient has history of nasal trauma- no The patient desires cosmetic changes- yes, she would like to inquire about dorsal hump reduction Review of Systems: ROS x 14 was performed all systems were negative except for : nasal congestion Past Medical History: Diagnosis Date ??? High cholesterol PSH: has a past surgical history that includes appendectomy (N/A); hernia repair; and hysterectomy (N/A). Current Outpatient Medications Medication Sig Dispense Refill ??? busPIRone (Buspar) 5 MG tablet Take 1 (one) tablet by mouth 2 times daily ??? estradiol (Estrace) 1 MG tablet Take 1 (one) tablet by mouth once daily ??? pravastatin (Pravachol) 40 MG tablet Take 1 (one) tablet by mouth once daily No current facility-administered medications for this visit. Allergies Patient has no known allergies. Social History Tobacco Use ??? Smoking status: Some Days Packs/day: 0.25 Types: Cigarettes ??? Smokeless tobacco: Never Vaping Use ??? Vaping Use: Some days Substance Use Topics ??? Alcohol use: Yes Comment: social ??? Drug use: Never No family history on file. Physical Exam: Constitutional: Alert, No acute Distress; Well developed/well nourished Neuro: Facial sensation intact to light touch, facial expressions symmetrical Eyes: conjunctiva clear, EOMI Face/Skin: normal appearance, no lesions/masses Ears: Right: External auricle normal Left: External auricle normal Nose: External- No external skin lesions, nasal dorsum is slightly deviated left, small bony dorsal hump,small cartilaginous dorsal hump, nasal tip is midline Internal- Nasal septum is deviated right, but not in the caudal aspect, inferior turbinates normal Mouth: symmetric tongue mobility, no lesions/masses/ulcers Neck: supple, no lymphadenopathy, no masses Voice: strong MusculoSkeletal: moves all extremities well CV/Pulm: Breathing comfortably on room air. Extremities warm to palpation. Procedure- rigid nasal endoscopy The procedure and alternatives were explained to the patient and verbal consent was obtained. The patient's bilateral nasal cavities were anesthetized with mixture of topical lidocaine and oxymetazoline. A zero degree rigid endoscope was advanced into both nasal cavities for evaluations. The patient tolerated the procedure well and there were no complications. Findings- There are no nasal masses, mucosal lesions, polyps, or purulent drainage. There are no septal perforations. Nasopharynx clear. Assessment and Plan: The patient is a 47 year old female who presents today with complaints relating to the nasal airway. On exam, the patient has Septal deviation and Inferior turbinate hypertrophy.The patient has at least 50% obstruction of the right nasal cavity and at least 25% obstruction of the left nasal cavity. We discussed surgical treatment in the form of open septorhinoplasty. The surgery would involve a small external nasal skin incision which has a risk for scarring. In addition to risks of bleeding, infection, pain, there will be postoperative nasal swelling and periorbital swelling, risk for dissatisfaction with the aesthetic appearance of the nose, asymmetry, persistent nasal airway obstruction.There will be a need for postoperative nasal splints inside the nose. The nasal tip may be numb forup to 6 months. There is a risk of septal hematoma and septal perforation, which is increased with smoking. Any aesthetic changes to make the nose smaller may result in worse nasal breathing. Any grafts placed into the nose has the potential to make the nose appear bigger. We discussed that if she chooses septoplasty and turbinate reduction alone, this could be done endo-nasal or endoscopic, without external incision. She she elects for cosmetic dorsal hump reduction in addition to the septoplasty, this would require opening the nose. Plan: -the patient will continue to think about the surgical options posed to her today -Follow up in [facility] for photos if she wishes to proceed Aravind Landeros MD [facility] Otolaryngology- Head and Neck Surgery documented in this encounter Procedure Notes * Aravind Landeros MD - 09/30/2022 1:48 PM CDTAssociated Order(s): PROC SINUS ENDOSCOPY Procedure(s): NM NASAL ENDOSCOPY,DX Pre-Procedure Diagnose(s): Deviated septum Procedure- rigid nasal endoscopy The procedure and alternatives were explained to the patient and verbal consent was obtained. The patient's bilateral nasal cavities were anesthetized with mixture of topical lidocaine and oxymetazoline. A zero degree rigid endoscope was advanced into both nasal cavities for evaluations. The patient tolerated the procedure well and there were no complications. Findings- There are no nasal masses, mucosal lesions, polyps, or purulent drainage. There are no septal perforations. Nasopharynx clear. documented in this encounter Plan of Treatment Not on file documented as of this encounter Procedures Procedure Name Priority Date/Time Associated Diagnosis Comments NM NASAL ENDOSCOPY,DX Routine 09/30/2022 1:48 PM CDT Deviated septum documented in this encounter Results * NM NASAL ENDOSCOPY,DX (09/30/2022 1:48 [...] Aravind Landeros MD PROCEDURE/MINOR SURG ICAL ORDERABLES documented in this encounter Visit Diagnoses Diagnosis Deviated septum- Primary Deviated nasal septum documented in this encounter Care Teams Rotary Cutter Relationship Specialty Start Date End Date Brenda Cleaning MD [address] [place] [phone] PCP - General 06/02/18 documented as of this encounter
--- OUTSIDE RECORDS SUMMARY | 2024-07-24 00:43 | XMS_ITS | Encounter Summary ---
Author Organization [facility] Address [address] [place] [address] Care Team Providers Care Vp Care Management Name Role Phone Brenda Cleaning MD Primary Care Provider [phone] Encounter Details Date Type Department Care Team (Late st Contact Info) Description 05/25/2023 11:11 PM MILL TURNER - 05/25/2023 11:18 PM MILL TURNER Emergency [facility] [address] [place] [phone] Discharge Disposition: Left Against Medical Advice/Discontinued Care Social History Tobacco Use Types Packs/Day Years [...] Comments Blood Pressure 127/70 05/25/2023 10:21 PM MILL TURNER Pulse 115 05/25/2023 10:21 PM MILL TURNER Temperature 36.8 ??C (98.2 ??F) 05/25/2023 10:[address] Respiratory Rate 18 05/25/2023 10:21 PM MILL TURNER Oxygen Saturation 96% 05/25/2023 10:21 PM MILL TURNER Inhaled Oxygen Concentration - - Weight - - Height - - Body Mass Index - - documented in this encounter Medications at Time of Discharge Medication Sig Dispensed Refills Start Date End Date busPIRone (Buspar) 5 MG tablet Take 1 (one) tablet by mouth 2 times daily 09/10/2022 estradiol (Estrace) 1 MG tablet Take 1 (one) tablet by mouth once daily 08/21/2022 pravastatin (Pravachol) 40 MG tablet Take 1 (one) tablet by mouth once daily 05/19/2022 documented as of this encounter ED Notes * Coty Escobar - 05/25/2023 11:04 PM CST Pt signed out AMA TURNER * Nasim Carbajal, RN - 05/25/2023 10:55 PM CST Called x1 for triage, no answer. TURNER documented in this encounter Plan of Treatment Not on file documented as of this encounter Visit Diagnoses Not on filedocumented in this encounter Care Teams Vp Care Management Relationship Specialty Start Date End Date Brenda Cleaning MD [address] [place] [phone] PCP - General 06/02/18 documented as of this encounter
--- OUTSIDE RECORDS SUMMARY | 2024-07-24 00:43 | XMS_ITS | Clinical Summary ---
Author Organization [facility] [employer] Address [address] [place] [address] Care Team Providers Care Bike Mechanic Name Role Phone Brenda Cleaning MD Primary Care Provider [phone] Source Comments [facility] [employer],non-owned Affiliates and Associated Physician Practices is amultiple site organization consisting of ambulatory clinics and hospital sitesin [place], [place], [place] and [place]. This disclosure is being madepursuant to the Care Everywhere program and may not contain all information available regarding this patient. Last updated 18.[employer] Allergies No known active allergies Medications * [...] Comments Blood Pressure 127/70 05/25/2023 10:21 PM SET UP AND LAY OUT INSPECTOR Pulse 115 05/25/2023 10:21 PM SET UP AND LAY OUT INSPECTOR Temperature 36.8 ??C (98.2 ??F) 05/25/2023 10:[address] Respiratory Rate 18 05/25/2023 10:21 PM SET UP AND LAY OUT INSPECTOR Oxygen Saturation 96% 05/25/2023 10:21 PM SET UP AND LAY OUT INSPECTOR Inhaled Oxygen Concentration - - Weight 67 kg (147 lb 9.6 oz) 09/30/2022 1:18 PM CDT Height 162.6 cm (5' 4 ) 09/30/2022 1:18 PM CDT Body Mass Index 25.34 09/30/2022 1:18 PM CDT Plan of Treatment Health Maintenance Due Date Last Done Comments COLOGUARD (AGES 45-75) - COLON CA SCREENING 1975 COLON MONITORING 1975 COLONOSCOPY - COLON CA SCREENING 1975 CT COLONOGRAPHY - COLON CA SCREENING 1975 Colorectal Cancer Screening 1975 FIT - COLON CA SCREENING 1975 FLEX SIG - COLON CA SCREENING 1975 MAMMOGRAM 1975 PAP SMEAR 1975 PNEUMOCOCCAL VACCINE (1 of 2 - PCV) 1981 HIV SCREENING 1990 HEPATITIS C SCREENING 02/08/1993 HEPATITIS B VACCINE (1 of 3 - 19+ 3-dose series) 1994 SCREENING FOR DIABETES 09/30/2022 DEPRESSION SCREENING 07/20/2023 COVID-19 VACCINE (3 - 2023- season) 2024 03/18/2021, 02/07/2021 INFLUENZA VACCINE (#1) 2024 05/23/2021, 2019 ZOSTER VACCINE (1 of 2) 2025 DTAP/TDAP/TD VACCINES (8 - Td or Tdap) 05/23/2031 05/23/2021, 08/10/2017, 07/20/2003, Additional history exists HIB VACCINE Aged Out No longer eligi ble based on patient's age to complete this topic HPV VACCINE Aged Out No longer eligi ble based on patient's age to complete this topic MENINGOCOCCAL VACCINE Aged Out No bismark maria l eligible based on patient's age to complete this topic Care Teams Bike Mechanic Relationship Specialty Start Date End Date Brenda Cleaning MD [address] [place] [phone] PCP - General 06/02/18
--- OUTSIDE RECORDS SUMMARY | 2024-07-24 00:43 | XMS_ITS | Encounter Summary ---
Author Organization [facility] Address [address] [place] [address] Care Team Providers Care Insurance Specialist Name Role Phone Brenda Cleaning MD Primary Care Provider [phone] Reason for Visit * Reason Onset Date Comments Psychiatric Problem 11/21/2021 Encounter Details Date Type Department Care Team (Late st Contact Info) Description 11/21/2021 Telephone [facility] [address] [place] [address] Noa Moody Psychiatric Problem Social History Tobacco Use Types Packs/Day Years Used Date Smoking Tobacco: Never Assessed Sex and Gender Information Value Date Recorded Sex Assigned at Not on file Gender Identity Not on file Sexual Orientation Not on file documented as of this encounter Progress Notes * Gal Rodas - 11/21/2021 3:57 PM CDT Spoke with DAWIT Garza who stated that patient is refusing to be placed too far from home. Which Dania ROJAS is fine with. So patient will not be coming to our facility. * Gal Rodas - 11/21/2021 2:40 PM CDT Called back to do assessment. Patient is refusing to do any assessments. Greg Pastor, states he will speak with her and call us back. * Gal Rodas - 11/21/2021 2:08 PM CDT Called to do assessment patient. Per Greg PASTOR, patient is in the middle of something and requests that we call back in 10 minutes. * Gal Rodas - 11/21/2021 12:13 PM CDT Spoke with cattle alley worker, Jocelyne. States patient was brought to the ED after a suicide attempt involving alcohol and Xanax. Patient is medically cleared. Involuntary. Chart is being faxed over for review. documented in this encounter Plan of Treatment Not on file documented as of this encounter Visit Diagnoses Not on filedocumented in this encounter Care Teams Insurance Specialist Relationship Specialty Start Date End Date Brenda Cleaning MD [address] [place] [phone] PCP - General 06/02/18 documented as of this encounter
--- OUTSIDE RECORDS SUMMARY | 2024-07-24 00:43 | XMS_ITS | Data Portability ---
Author Organization [place] [facility] [employer] Address [address] [place] [address] Care Team Providers Care Director Of Logistics Name Role Phone RHEA HAIDER Motorcyles Final Inspector Assessment Encounter Date Assessment Date Assessment LastModified by Organization Details LastModified Time 10/01/2022 10/01/2022 Medication Changes LASHAY obtained. Records requested. [facility] labs [facility]. Reviewed the information within patient's MyChart. labs to be done at next visit. Signs and symptoms of when to seek further care reviewed with patient/caregive r/family/facilit y staff. Patient to follow up with primary care provider or return to clinic for any worsening signs and symptoms. Always present to ER or Urgent Care with any progression of/alarming symptoms, significant changes in symptoms or any concerning or urgent matters. Patient/caregive r/family/facilit y staff verbalized agreement and understanding of treatment plan. F/U 6 months, sooner if needed [email or web address] Not available 10/01/2022 11:46:07 Plan of Treatment Reminders Order Date Submit Date Provider Last Modified By Organization Details Last Modified Time Details Appointments None recorded. Lab None recorded. Referral None recorded. Procedures None recorded. Surgeries None recorded. Imaging None recorded. Medication Orders pravastatin 40 mg tablet 2022 023 [email or web address] [facility] [employer] [id number], [address], [place], [place], [id number], 11:53:56 Patient TargetsNo targets recorded. Patient Instructions Encounter Date Encounter Id Patient Instructions Last Modified By Organization Details Last Modified Time 10/01/2022 [id number] resistance training with free weights: exercises [email or web address] Not available 10/01/2022 11:44:40 Learning About Being Physically Active [email or web address] Not available 10/01/2022 11:44:40 high cholesterol : care instructions [email or web address] Not available 10/01/2022 11:44:40 low cholesterol diet [email or web address] Not available 10/01/2022 11:44:40 Reason for Referral None Reported. Problems Name Problem SNOMED Code Status Onset Date Resolution Date Notes Provider Name and Address Organization Details Recorded Time Hyperlipidemia 66365228 Active 2022 Luz Mejia, BLACK PULLER-BC, PMHNP-BC [address], [place], [address], [facility] 11:39:17 Problem Notes None recorded. Procedures Surgical History Date Name Laterality Status Provider Name and Address Organization Details Recorded Time [facility] 10/01/2022 09:19:48 Hernia Repair [facility] 10/01/2022 09:19:58 Appendectomy completed [facility] 10/01/2022 09:20:11 lumpectomy of breast completed [facility] 10/30/2022 15:37:02 Imaging Results None recorded. Procedure Notes None recorded. Medical Equipment None Reported. Allergies No known drug allergies Medications Name Sig Start Date Stop Date Status Note LastModified by Organization Details LastModified Time buspirone 5 mg tablet Take 1 tablet by oral route as needed for 30 days. active Not Available Not Available No t Available pravastatin 40 mg tablet TAKE 1 TABLET BY MOUTH EVERY DAY AT BEDTIME active Not Available Not Available No t Available naltrexone 50 mg tablet TAKE 1 TABLET BY MOUTH EVERY DAY 10/01 completed Not Available Not Available Not Available Adderall XR 20 mg capsule,ext ended release active Not Available Not Available Not Available dextroamphe tamine-amph etamine 30 mg tablet Take 1 tablet every day by oral route for 30 days. 10/01 completed Not Available Not Available Not Available amoxicillin 875 mg tablet TAKE 1 TABLET BY MOUTH TWICE DAILY FOR 7 DAYS 10/01 completed Not Available Not Available Not Available estradiol 1 mg tablet TAKE 1 TABLET BY MOUTH EVERY DAY active Not Available Not Available No t Available meclizine 25 mg tablet active Not Available Not Available Not Available buspirone 7.5 mg tablet TAKE 1 TABLET BY MOUTH TWICE DAILY 10/01 completed Not Available Not Available Not Available pravastatin 20 mg tablet 10/01 completed Not Available Not Available Not Available zolpidem 5 mg tablet TAKE 1 TABLET BY MOUTH EVERY EVENING 10/01 completed Not Available Not Available Not Available lorazepam 1 mg tablet TAKE 1 TABLET BY MOUTH DAILY active Not Available Not Available No t Available azelastine 137 mcg (0.1 %) nasal spray USE 1 SPRAY IN EACH NOSTRIL TWICE DAILY DIRECTED active Not Available Not Available No t Available loratadine 10 mg tablet TAKE 1 TABLET BY MOUTH DAILY active Not Available Not Available No t Available hydroxyzine pamoate 25 mg capsule TAKE ONE CAPSULE BY MOUTH EVERY 4 HOURS NEEDED 10/01 completed Not Available Not Available Not Available erythromyci n with ethanol 2 % topical gel APPLY PEA-SIZED AMOUNT TO THE FACE AND TO THE AFFECTED AREA AT BEDTIME FOR AT LEAST 3 WEEKS 10/01 completed Not Available Not Available Not Available cyclobenzap rine 5 mg tablet 10/01 completed Not Available Not Available Not Available bupropion HCl XL 150 mg 24 hr tablet, extended release TAKE 1 TABLET BY MOUTH EVERY DAY active Not Available Not Available No t Available Vyvanse 30 mg capsule Take 1 capsule every day by oral route for 30 days. active Not Available Not Available No t Available Vyvanse 50 mg capsule 10/01 completed Not Available Not Available Not Available Vyvanse 70 mg capsule 10/01 completed Not Available Not Available Not Available Vyvanse 60 mg capsule 10/01 completed Not Available Not Available Not Available Vyvanse 20 mg capsule 10/01 completed Not Available Not Available Not Available Vyvanse 40 mg capsule TAKE 1 CAPSULE BY MOUTH EVERY MORNING active Not Available Not Available No t Available Vyvanse 10 mg capsule 10/01 completed Not Available Not Available Not Available Paxlovid 300 mg (150 mg x 2)-100 mg tablets in a dose pack TK 2 NIRMATREL VIR TS AND 1 RITONAVIR T TOGETHER PO BID FOR 5 DAYS BID FOR 5 DAYS 10/01 completed Not Available Not Available Not Available Vitals Date Recorded Body weight Heart rate Oxygen saturation Oxygen saturation in Arterial blood by Pulse oximetry Respiratory rate Body temperature Body mass index (BMI) Body height Systolic blood pressure Diastolic blood pressure Provider Name and Address Organization Details Last Updated DateTime 3 [address].9 5 g 68 /min 100 % 100 % 20 /min 98 [degF] 25.4 kg/m2 162.56 cm 110 mm[Hg] 61 mm[Hg] Sindy Oli [facility] 11:07:24 Social History Question Answer Notes LastModified by Organizat ion Details LastModified Time Tobacco Smoking Status Current Every Day Smoker John Valdovinos doris [facility] 10/01/2022 09:16:40 Do You Have An Advance Directive? No [email or web address] Information not available 10/01/2022 What Is Your Level Of Alcohol Consumption? Occasional [email or web address] Information not available 10/01/2022 How Many Times Per Week Do You Consume Alcohol? Less Than 1 Time Per Week [email or web address] Information not available 10/01/2022 How Many Years Have You Consumed Alcohol? 28 [email or web address] Information not available 10/01/2022 Are You Currently Sexually Active With Anyone Who Has Traveled (within The Last 12 Weeks) To A Zika-affected Area? No [email or web address] Information not available 10/01/2022 Do You Wear A Helmet When Biking? Yes [email or web address] Information not available 10/01/2022 Are You Blind Or Do You Have Difficulty Seeing? No [email or web address] Information not available 10/01/2022 Is Blood Transfusion Acceptable In An Emergency? Yes Information not available 10/01/2022 What Is Your Level Of Caffeine Consumption? Moderate [email or web address] Information not available 10/01/2022 What Type Of Indian Blanket Weaver Do You Use? None [email or web address] Information not available 10/01/2022 What Is Your Code Status? Full Code [email or web address] Information not available 10/01/2022 In The 14 Days Before Symptom Onset, Have You Had Close Contact With A Laboratory-confir med COVID-19 While That Case Was Ill? No [email or web address] Information not available 10/01/2022 In The 14 Days Before Symptom Onset, Have You Had Close Contact With A Person Who Is Under Investigation For COVID-19 While That Person Was Ill? No [email or web address] Information not available 10/01/2022 Have You Been To An Area Known To Be High Risk For COVID-19? No [email or web address] Information not available 10/01/2022 Are You Currently Employed? Yes [email or web address] Information not available 10/01/2022 Are You Deaf Or Do You Have Serious Difficulty Hearing? No [email or web address] Information not available 10/01/2022 What Type Of Diet Are You Following? REGULAR [email or web address] Information not available 10/01/2022 Have You Processed Blood Or Body Fluids From An Ebola Virus Disease Patient Without Appropriate PPE? No [email or web address] Information not available 10/01/2022 Do You Reside In Or Have You Traveled To An Area Where Ebola Virus Transmission Is Active? No [email or web address] Information not available 10/01/2022 What Is The Highest Grade Or Level Of School You Have Completed Or The Highest Degree You Have Received? 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 5-7 Times Per Week Information not available 10/01/2022 Have There Been Any Changes To Your Family Or Social Situation? No [email or web address] Information no t available 10/01/2022 Are There Any Guns Present In Your Home? No [email or web address] Information not available 10/01/2022 Which Of Your Hands Is Dominant? Right [email or web address] Information not available 10/01/2022 Have You Recently Or Are You Planning To Travel To An Area With Zika Virus? No [email or web address] Information not available 10/01/2022 Do You Have A Medical Power Of Contract Associate? No [email or web address] Information not available 10/01/2022 What Was The Date Of Your Most Recent Tobacco Screening? 10/01/2022 [email or web address] Information not available 10/01/2022 How Many Children Do You Have? 2 [email or web address] Information not available 10/01/2022 What Is Your Current Pack Years? 10-19packyears Information not available 10/01/2022 Have You Ever Been Counseled For Unhealthy Alcohol Use? No [email or web address] Information not available 10/01/2022 Do You Have Any Pets? Yes [email or web address] Information not available 10/01/2022 Do You Use Protection During Sex? Always [email or web address] Information not available 10/01/2022 What Is Your Relationship Status? [email or web address] Information not available 10/01/2022 Do You Use Your Seat Belt Or Car Seat Routinely? Yes [email or web address] Information not available 10/01/2022 Are You Sexually Active? Yes [email or web address] Information not available 10/01/2022 Do You Have Smoke And Carbon Monoxide Detectors In Your Home? Yes [email or web address] Information not available 10/01/2022 At What Age Did You Start Smoking Tobacco? 18 kqynpxe86 Information not available 10/01/2022 Are You Passively Exposed To Smoke? Yes [email or web address] Information no t available 10/01/2022 How Much Tobacco Do You Smoke? 1 PPW gowfbtw05 Information not available 10/01/2022 Do You Participate In Social Media? Yes [email or web address] Information not available 10/01/2022 Do You Feel Stressed (tense, Restless, Nervous, Or Anxious, Or Unable To Sleep At Night)? [id number] [email or web address] Information not available 10/01/2022 Do You Use Any Illicit Or Recreational Drugs? No [email or web address] Information not available 10/01/2022 Do You Use Sunscreen Routinely? Yes Information not available 10/01/2022 How Many Years Have You Smoked Tobacco? 29 qurmeuy95 Information not available 10/01/2022 Have You Recently Traveled Abroad? No [email or web address] Information not available 10/01/2022 Are You Currently In School? No Information not available 10/01/2022 Do You Have Any Dietary Restrictions? No [email or web address] Information not available 10/01/2022 Do You Or Have You Ever Used Any Other Forms Of Tobacco Or Nicotine? No [email or web address] Information not available 10/01/2022 Sex: Female Functional Status Question Answer Note LastModified by Organizat ion Details LastModified Time Do you have difficulty walking or climbing stairs? No Information not available 10/01/2022 Do you have transportation difficulties? No [email or web address] Information not available 10/01/2022 Are you able to walk? YESWOREST ypzajfw99 Information not available 10/01/2022 Do you have difficulty doing errands alone? No wegyajf66 Information not available 10/01/2022 Are you able to care for yourself? Yes [email or web address] Information not available 10/01/2022 Do you have difficulty dressing or bathing? No [email or web address] Information not available 10/01/2022 What is your exercise level? Moderate [email or web address] Information not available 10/01/2022 Mental Status Question Answer Note LastModified by Organization D etails LastModified Time Do you have difficulty concentrating, remembering or making decisions? No Information no t available 10/01/2022 Family History Relationship Description Onset Age of this Age Resolved Age Notes LastModified by Organization Details LastModified Time Paternal Grandfather Malignant tumor of colon [email or web address] Not available 2022 09:10:55 Paternal Grandfather Alzheimer's disease [email or web address] Not available 2022 09:12:54 Mother Essential hypertension Not available 09:11:12 Mother Anxiety disorder [email or web address] Not available 2022 09:11:45 Mother Depressive disorder [email or web address] Not available 2022 09:12:04 Paternal Grandmother Essential hypertension [email or web address] Not available 09:11:24 Maternal Aunt Dementia [email or web address] Not a vailable 10/01/2022 09:13:11 Medical History Condition Response Attention Deficit Disorder (ADD/ADHD) Y Depression Y Anxiety Disorder Y Nicotine / Tobacco Dependence Y Vitamin deficiency Y Allergies/Hayfever Y Psychiatric Diseases / Disorders Y Ear, Nose, Throat Diseases / Disorders Y Endocrine Diseases / Disorders Y Gastrointestinal Diseases / Disorders Y Infectious Disease/Disorders/Virus Y Hyperlipidemia Y Gynecological HistoryNo gynecological history recorded. Obstetrics History GPAL:G 0 P 0 0 0 0 Past Encounters Encounter ID Performer Location Encounter Start Date Encounter Closed Date Diagnosis/Indication Diagnosis SNOMED-CT Code Diagnosis ICD10 Code [id number] Luz Mejia, BLACK PULLER-, PMHNP- Main Office [address] [place] [address] 10/01/2022 11:00:46 10/01/2022 18:19:06 Adult health examination 834524898 Z00.00 Hyperlipidemia 34338970 E78.5 Exercises education, guidance, and counseling 098828250 Z71.82 Health Concerns Section Related Observation LastModified by Organization Detai ls LastModified Time None Recorded Concern Status LastModified by Organization Details LastModified Time None Recorded Advance Directives Directive N: Payers Encounter Date Sequence Insurance Name Policy Number Policy [place] Covered Member ID [place] Member ID Guarantor Name 10/01/2022 1 [facility] [id number] Karlie Cachorro [id number] Karlie Cachorro Notes Date Note Type Note Provider Name and Address Organization Details Recorded Time 10/01/2022 text/html Annual WellnessReported bypatient.Diet and Nutrition:discussed vitamin and supplement use; discussed portion control; discussed maintaining calcium balance; discussed diet improvement Fracture Risk:no history of fractures; no recent explained fracture; no sudden unexplained fractures; no previous musculoskeletal injuries Physical Activity:discussed weightbearing activities; discussed exercise habits Additional Lifestyle Factors:no tobacco use; no alcohol intake Depression Risk:never feels sad, empty, or tearful; no loss of interest in activities; no significant changes in weight; no sleep disturbances or insomnia; no agitation; no loss of energy; no feelings of worthlessness or guilt; no thoughts of suicide; no history of mood disorders;history of depression Hearing:no loss of hearing Vision:no vision problems Luz Mejia, BLACK PULLER-BC, PMHNP-BC [address] [place], [address], [facility] 10/01/2022 12:33:44 OBGyn Episode No OBEpisode recorded.
--- OUTSIDE RECORDS SUMMARY | 2024-07-24 00:44 | XMS_ITS | Encounter Summary ---
Author Organization [facility] Address [address] [place] [address]. [place], [place] [id number] [place] [address] Care Team Providers Care Retail Store Clerk Name Role Phone Charley Cabrera MD Primary Care Provider [phone] Encounter Details Date Type Department Care Team (Latest Contact Info) Description 12/18/2023 Travel Social History Tobacco Use Types Packs/Day Years Used Date Smoking Tobacco: Every Day Cigarettes 0.3 15 Passive Smoke Exposure: Past Smokeless Tobacco: Never Comments:cut back alot Alcohol Use Standard Drinks/Week Comments Yes 5 (1 standard drink = 0.6 oz pur e alcohol) occ AUDIT-C Answer Date Recorded Frequency of Alcohol Consumption 2-4 times a thu08/16/2018 Average Number of Drinks Not on file 019 Frequency of Binge Drinking Not on file 07/21 PHQ-2 Answer Date Recorded Patient Health Questionnaire-2 Score 0 08/25/2023 Comments No Sex and Gender Information Value Date Recorded Sex Assigned at Not on file Legal Sex Female 4:47 PM CDT Gender Identity Not on file Sexual Orientation Not on file documented as of this encounter Plan of Treatment Upcoming Encounters Date Type Department Care Team (Late st Contact Info) Description 09/08/2024 10:10 AM STOCK CRANE OPERATOR Office Visit [facility] Family Medicine - [place] [address] [place] [phone] Samantha Sanders MD [address] [place], [place] [phone] documented as of this encounter Visit Diagnoses Not on filedocumented in this encounter Additional Health Concerns Assessment Noted Time PHQ-9 Depression Total Score: 14 023 1:30 PM STOCK CRANE OPERATOR documented as of this encounter Care Teams Retail Store Clerk Relationship Specialty [place] [phone] [address] [place] [address] PCP - General FAMILY PRACTICE 04/21/22 03/03/24 documented as of this encounter
--- OUTSIDE RECORDS SUMMARY | 2024-07-24 00:44 | XMS_ITS | Encounter Summary ---
Author Organization [facility] Address [address] [place] [address]. [place], [place] [address] [place] [address] Care Team Providers Care Manager Utilities Name Role Phone Samantha Sanders MD Primary Care Provider + Reason for Visit * Reason Onset Date Comments Medication 07/15/2024 Encounter Details Date Type Department Care Team (Late st Contact Info) Description 07/15/2024 Telephone [facility] Medical [facility] Family Medicine [facility] [address] [facility] [address] [place] [address] Samantha Sanders MD [address] [facility] [address] [place] [phone] Medication Social History Tobacco Use Types Packs/Day Years Used Date Smoking Tobacco: Some Days Cigarettes 0.3 15 Passive Smoke Exposure: Past Smokeless Tobacco: Never Comments:cut back alot 3 per day. Alcohol Use Standard Drinks/Week Comments Yes 5 (1 standard drink = 0.6 oz pur e alcohol) occ AUDIT-C Answer Date Recorded Frequency of Alcohol Consumption 2-4 times a thu08/16/2018 Average Number of Drinks Not on file 019 Frequency of Binge Drinking Not on file 07/21 PHQ-2 Answer Date Recorded Patient Health Questionnaire-2 Score 0 03/07/2024 Comments No Sex and Gender Information Value Date Recorded Sex Assigned at Not on file Legal Sex Female 4:47 PM CDT Gender Identity Not on file Sexual Orientation Not on file documented as of this encounter Progress Notes * Samantha Sanders MD - 07/21/2024 1:39 PM CST Script for 30 was picked up. Made reminder note for the future. MACHINE OPERATOR * Shelley Juarez NP - 07/19/2024 8:29 AM CST Script sent. MACHINE OPERATOR * Shelley Juarez NP - 07/19/2024 8:29 AM CSTAddended by: SHELLEY JUAREZ on: 07/19/2024 08:29 AM Modules accepted: Orders MACHINE OPERATOR * Maricel Brown MA - 07/15/2024 3:46 PM CST Pt states that the pharm will do a 72hr early rf and her insurance will do a 5 day early rf. She would appreciate it if you can try to call the med out on 07/19 so its still on this years buisiness. She thinks she can pick it up on the . MACHINE OPERATOR * Maricel Brown MA - 07/15/2024 3:32 PM CST 07/15 lmtcb MACHINE OPERATOR * Shelley Juarez NP - 07/15/2024 2:15 PM CST Please inform pt since its a controlled substance we can only send in 48 hours early per our contract. If refill is going to be due prior to DR. Gutierrez returning I would have to defer dosing change to when Dr. Gutierrez returns but I can provide her her a short script of the [address] Gutierrez returns if plan is togo up to 40mg per their discussion. MACHINE OPERATOR * Edna Mendoza - 07/15/2024 12:51 PM CST Karlie called in, her secondary insurance expires at the end of June, she is wanting to know ifangelo could get the Vyvanse sent in early due to cost. It was prescribed on 06/21 so if it's sent in on 07/19 it would be a few days early. She thinks if you put a note on the rx it can be filled 3 daysearly but if not would you be able to send in 40 mg instead. (Which is what she used to be on). Sending this to Shelley and Dr. Sanders since Dr. Sanders is out of the office until after the newyear. Shweta Garcia MACHINE OPERATOR documented in this encounter Plan of Treatment Upcoming Encounters Date Type Department Care Team (Late st Contact Info) Description 09/08/2024 10:10 AM PAD MACHINE OPERATOR Office Visit [facility] Medical Group Family Medicine - [place] [address] [place] [phone] Samantha Sanders MD [address] [place], [place] [phone] documented as of this encounter Visit Diagnoses Diagnosis Attention deficit hyperactivity disorder (ADHD), combined type documented in this encounter Additional Health Concerns Assessment Noted Time PHQ-9 Depression Total Score: 14 023 1:30 PM PAD MACHINE OPERATOR documented as of this encounter Care Teams Manager Utilities Relationship Specialty Start Date End Date Samantha Sanders MD [address] [place], [place] [phone] PCP - General FAMILY PRACTICE 03/07/24 documented as of this encounter
--- OUTSIDE RECORDS SUMMARY | 2024-07-24 00:44 | XMS_ITS | Encounter Summary ---
Author Organization [facility] Address [address] [place] [address]. [place], [place] [phone] [place] [address] Care Team Providers Care Plate Mill Hand Name Role Phone Samantha Saravia MD Primary Care Provider + Reason for Visit * Reason Comments Follow Up Transferring care [facility]. Encounter Details Date Type Department Care Team ([facility] Contact Info) Description 03/07/2024 10:00 AM CDT Office Visit [facility] Medical [facility] Family Medicine [facility] [address] [facility] [address] [place] [phone] Samantha Saravia MD [address] [facility] [address] [place] [address] Follow Up (Transferring care from [place].) Social History Tobacco Use Types Packs/Day Years Used Date Smoking Tobacco: Every Day Cigarettes 0.3 15 Passive Smoke Exposure: Past Smokeless Tobacco: Never Tobacco Cessation:Ready to Q uit: No; Counseling Given: Yes Comments:cut back alot Alcohol Use Standard Drinks/Week [...] Sign Reading Time Taken Comments Blood Pressure 104/69 03/07/2024 10:10 AM CDT Pulse 82 03/07/2024 10:10 AM CDT Temperature 36.6 ??C (97.8 ??F) 03/07/2024 10:10 AM C DT Respiratory Rate 17 03/07/2024 10:10 AM CDT Oxygen Saturation 98% 03/07/2024 10:10 AM CDT Inhaled Oxygen Concentration - - Weight 67.6 kg (149 lb) 03/07/2024 10:10 AM CDT Height 162.6 cm (5' 4 ) 03/07/2024 10:10 AM CDT Body Mass Index 25.58 03/07/2024 10:10 AM CDT documented in this encounter Progress Notes * Samantha Saravia MD - 03/07/2024 11:14 AM CDTAssociated Problem(s): Lymphedema Will see if she can do without this medication due to monitoring parameters. Discontinue. * Samantha Saravia MD - 03/07/2024 11:14 AM CDTAssociated Problem(s): ADHD Not controlled. Trial Vyvanse 40 mg. UDS ordered. Contract signed. * Samantha Saravia MD - 03/07/2024 11:13 AM CDTAssociated Problem(s): Mixed hyperlipidemia Recommend she adjust her time of taking medication when her sleep cycle switches. Ordered CMP and lipid panel. * Samantha Saravia MD - 03/07/2024 11:13 AM CDTAssociated Problem(s): Vitamin D deficiency Repeat vitamin D level. * Samantha Saravia MD - 03/07/2024 11:12 AM CDTAssociated Problem(s): Insomnia Encouraged her to continue melatonin to help regulate sleep and wake cycles. Will initiate trazodone 50 mg daily in the meantime. * Zenia Brown MA - 03/07/2024 10:00 AM CDTAddended by: ZENIA BROWN on: 03/07/2024 11:46 AM Modules accepted: Orders * Samantha Saravia MD - 03/07/2024 10:00 AM CDTSummary: chronic SUBJECTIVE: Karlie Ivory is a 49-year-old year old female who presents for establishing care. Problem Lymphedema Takes spironolactone PRN, typically a couple times a week. Tobacco Use Hx of Ulcerative Colitis Hasn't had a flare in years. In remission. Hasn't had a scope in years. Started as proctitis. Diagnosed 1999, hospitalized several times. Mixed Hyperlipidemia Takes pravastatin 40 mg daily. Adhd Has been taking Vyvanse. Feels that she needs a higher dose. 30 mg has not been sufficient. Vitamin D Deficiency Insomnia Struggling with sleeplessness. 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 Living with elderly parents. Lays worrying. In the past was taking. Feels like agony . Has tried lorazepam in the past. Possibly tried trazodone in the past. She does take melatonin. Acne (Resolved) Review of Systems Per HPI Patient's past medical history, medications, allergies, family history, and social history reviewedand updated in Epic chart as necessary. Patient Active Problem List Diagnosis ADHD Major depression Vitamin D deficiency Insomnia Perimenopausal symptoms Class 1 obesity due to excess calories with serious comorbidity and body mass index (BMI) of 30.0 to 30.9 in adult S/P colonoscopy with polypectomy Thyroid cyst Abnormal thyroid ultrasound Mixed hyperlipidemia Hx of ulcerative colitis Lymphedema Tobacco use Current Outpatient Medications: cetirizine (ZYRTEC) 10 MG tablet, Take 1 tablet (10 mg total) by mouth daily. (Patient taking differently: Take 1 tablet (10 mg total) by mouth as needed.), Disp: 90 tablet, Rfl: 1 estradiol 1 MG tablet, Take 1 tablet (1 mg total) by mouth daily., Disp: , Rfl: lisdexamfetamine (VYVANSE) 40 MG capsule, Take 1 capsule (40 mg total) by mouth every morning. Namebrand only, Disp: 30 capsule, Rfl: 0 Multiple Vitamin (MULTIVITAMIN ADULT OR), Take by mouth daily. , Disp: , Rfl: pravastatin (PRAVACHOL) 40 MG tablet, Take 1 tablet (40 mg total) by mouth nightly at bedtime., Disp: 90 tablet, Rfl: 3 spironolactone (ALDACTONE) 50 MG tablet, Take 1 tablet (50 mg total) by mouth daily., Disp: , Rfl: traZODone (DESYREL) 50 MG tablet, Take 1 tablet (50 mg total) by mouth nightly at bedtime for 30 days., Disp: 30 tablet, Rfl: 0 Review of patient's allergies indicates: No Known Allergies Past Surgical History: Procedure Laterality Date APPENDECTOMY APPENDECTOMY BREAST LUMPECTOMY Left HERNIA REPAIR HYSTERECTOMY OBJECTIVE: Filed Vitals: 03/07/24 1010 BP: 104/69 Pulse: 82 Resp: 17 Temp: 97.8 ??F (36.6 ??C) TempSrc: Temporal SpO2: 98% Weight: 67.6 kg (149 lb) Height: 1.626 m (5' 4 ) Physical Exam Constitutional: Appearance: Normal appearance. Eyes: Extraocular Movements: Extraocular movements intact. Pupils: Pupils are equal, round, and reactive to light. Neck: Vascular: No carotid bruit. Cardiovascular: Rate and Rhythm: Normal rate and regular rhythm. Pulses: Normal pulses. Heart sounds: Normal heart sounds. Pulmonary: Effort: Pulmonary effort is normal. Breath sounds: Normal breath sounds. Abdominal: General: Bowel sounds are normal. There is no distension. Palpations: Abdomen is soft. Neurological: General: No focal deficit present. Mental Status: She is alert and oriented to person, place, and time. Deep Tendon Reflexes: Reflexes normal. ASSESSMENT & PLAN: Karlie Ivory is a 49-year-old female presents to discuss with following. Problem List Items Addressed This Visit ADHD - Primary Not controlled. Trial Vyvanse 40 mg. UDS ordered. Contract signed. Relevant Medications lisdexamfetamine (VYVANSE) 40 MG capsule Other Relevant Orders MG/PCCL UDS SCREEN Vitamin D deficiency Repeat vitamin D level. Relevant Orders VITAMIN D, 25 OH Insomnia Encouraged her to continue melatonin to help regulate sleep and wake cycles. Will initiate trazodone 50 mg daily in the meantime. Relevant Medications traZODone (DESYREL) 50 MG tablet Mixed hyperlipidemia Recommend she adjust her time of taking medication when her sleep cycle switches. Ordered CMP and lipid panel. Relevant Medications pravastatin (PRAVACHOL) 40 MG tablet Other Relevant Orders COMPREHENSIVE METABOLIC PANEL LIPID PANEL Lymphedema Will see if she can do without this medication due to monitoring parameters. Discontinue. Other Visit Diagnoses Diabetes mellitus screening Relevant Orders HEMOGLOBIN, GLYCOSYLATED Lab: None Specified No follow-ups on file. SAMANTHA SARAVIA MD Family Practice documented in this encounter Plan of Treatment Upcoming Encounters Date Type Department Care Team (Late st Contact Info) Description 09/08/2024 10:10 AM DELIVERY MANAGER Office Visit [facility] Family Medicine - [place] [address] [facility] [address] [place] [address] Samantha Saravia MD [address] [place] [address] documented as of this encounter Procedures Procedure Name Priority Date/Time Associated Diagnosis Comments MG/PCCL UDS SCREEN Routine 03/07/2024 11 :39 AM CDT Medication management Therapeutic drug monitoring documented in this encounter Results * VITAMIN D, 25 OH (03/07/2024 11:46 AM CDT) VITAMIN D 25 HYDROXY TOTAL S/P/B 66.2 30 - 100 NG/ML 03/07/2024 3:56 PM CDT [facility] Comment: ? DEFICIENT ??<20 ?INSUFFICIENT 20-30 ?SUFFICIENT 30-100 03/07/2024 11:4 6 AM CDT Samantha Saravia MD LABORATORY Final Re sult Performing Organization Address [facility] de Phone Number [facility] [address] [place] [address], * (ABNORMAL) HEMOGLOBIN, GLYCOSYLATED (03/07/2024 11:46 AM CDT) HGB A1C 5.5 4.5 - 6.2 % 03/07/2024 3:43 PM CDT [facility] ESTIMATED AVG GLUCOSE 111(H) 74 - 106 MG/DL 03/07/2024 3:43 PM CDT [facility] 03/07/2024 11:4 6 AM CDT Samantha Saravia MD LABORATORY Final Re sult Performing Organization Address [facility] de Phone Number [place] [id number] [place] [address], * (ABNORMAL) LIPID PANEL (03/07/2024 11:46 AM CDT) CHOLESTEROL 283(H) <200 MG/DL 03/07/2024 3:56 PM CDT [facility] TRIGLYCERIDES 250(H) <150 MG/DL 03/07/2024 3:56 PM CDT [facility] HDL 43 >40 MG/DL 03/07/2024 3:56 PM CDT [facility] LDL-C 190(H) <100 MG/DL 03/07/2024 3:56 PM CDT [facility] VLDL CALCULATION 50(H) 5 - 28 MG/DL 03/07/2024 3:56 PM CDT [facility] CHOL/HDL RATIO 6.6(H) 0.0 - 4.0 03/07/2024 3:56 PM CDT [facility] LDL/HDL 4.4(H) 0.41 - 2.13 03/07/2024 3:56 PM CDT [facility] NON HDL CHOLESTEROL 240(H) <140 MG/DL 03/07/2024 3:56 PM CDT [facility] 03/07/2024 11:4 6 AM CDT us Samantha Saravia MD LABORATORY Final Re sult [facility] [address] [place] [address], * (ABNORMAL) COMPREHENSIVE METABOLIC PANEL (03/07/2024 11:46 AM CDT) [facility] SODIUM S/P/B 141 136 - 145 MMOL/L 03/07/2024 3:56 PM CDT [facility] POTASSIUM S/P/B 4.2 3.5 - 5.1 MMOL/L 03/07/2024 3:56 PM CDT [facility] CHLORIDE S/P/B 108(H) 98 - 107 MMOL/L 03/07/2024 3:56 PM CDT [facility] CO2 28.1 21 - 32 MMOL/L 03/07/2024 3:56 PM CDT [facility] GLUCOSE 93 70 - 99 MG/DL 03/07/2024 3:56 PM CDT [facility] BUN 10 7 - 18 MG/DL 03/07/2024 3:56 PM [facility] CREATININE S/P/B 0.90 0.55 - 1.02 MG/DL 03/07/2024 3:56 PM [facility] CALCIUM S/P/B 9.0 8.4 - 10.5 MG/DL 03/07/2024 3:56 PM [facility] BILIRUBIN TOTAL S/P/B 0.4 0.2 - 1.0 MG/DL 03/07/2024 3:56 PM [facility] ALKALINE PHOSPHATASE S/P/B 93 39 - 100 U/L 03/07/2024 3:56 PM T [facility] AST 13(L) 15 - 37 U/L 03/07/2024 3:56 PM [facility] ALT 15 14 - 59 U/L 03/07/2024 3:56 PM [facility] TOTAL PROTEIN S/P/B 7.0 6.4 - 8.2 G/DL 03/07/2024 3:56 PM [facility] ALBUMIN S/P/B 3.9 3.4 - 5.0 G/DL 03/07/2024 3:56 PM [facility] ANION GAP 4.9(L) 5 - 15 MMOL/L 03/07/2024 3:56 PM [facility] Comment:REFERENCE RANGE NOT ESTABLISHED OSMOLALITY (CALC) 291 MOSM/KG 024 3:56 PM [facility] Comment:REFERENCE RANGE NOT ESTABLISHED GFR ESTIMATE 78(L) >90 ML/MIN/1. 73 M2 03/07/2024 3:56 PM [facility] GFR NOTES GFR REFERENCE S: 03/07/2024 3:56 PM [facility] Comment: THE ESTIMATED GFR IS CALCULATED USING THE 2020 CKD-EPI EQUATION. THE FOLLOWING CATEGORIES FOR GRADING RENAL FUNCTION ARE RECOMMENDED BY THE INTERNATIONAL SOCIETY OF NEPHROLOGY (KDIGO 2012 CLINICAL PRACTICE GUIDELINE). G1,NORMAL OR HIGH: >89 ml/min/1.73 m2 G2,MILDLY DECREASED: 60-89 ml/min/1.73 m2 G3A,MILDLY TO MODERATELY DECREASED: 45-59 ml/min/1.73 m2 G3B,MODERATELY TO SEVERELY DECREASED: 30-44 ml/min/1.73 m2 G4,SEVERELY DECREASED: 15-29 ml/min/1.73 m2 G5,KIDNEY FAILURE: <15 ml/min/1.73 m2 03/07/2024 11:4 6 AM CDT us Samantha Saravia MD LABORATORY Final Re sult [facility] [id number] [place] [address], * MG/PCCL UDS SCREEN (03/07/2024 11:39 AM CDT) FENTANYL SCREEN (U) NEGATIVE <0.5 ng/mL [facility] Comment: See Note A See Note A MORPHINE (U) NEGATIVE <10 ng/mL [facility] Comment: See Note A See Note A AMPHETAMINES PM NEGATIVE <500 ng/mL [facility] Comment: See Note A See Note A BARBITURATES PM (U) NEGATIVE <300 ng/mL [facility] Comment: See Note A See Note A BENZODIAZEPINES PM (U) NEGATIVE <100 ng/mL [facility] Comment: See Note A See Note A COCAINE METABOLITE PM (U) NEGATIVE <150 ng/mL [facility] Comment: See Note A See Note A MARIJUANA METABOLITE PM (U) NEGATIVE <20 ng/mL [facility] Comment: See Note A See Note A METHADONE PM (U) NEGATIVE <100 ng/mL [facility] Comment: See Note A See Note A OPIATES PM (U) NEGATIVE <100 ng/mL [facility] Comment: See Note A See Note A OXYCODONE PM (U) NEGATIVE <100 ng/mL [facility] Comment: See Note A See Note A CREATININE RANDOM (U) 126.4 > or = 20.0 mg/dL [facility] pH PM (U) 7.3 4.5 - 9.0 [facility] OXIDANT NEGATIVE <200 mcg/mL [facility] Note [facility] Comment: This drug testing is for medical treatment only. Analysis was performed as non-forensic testing and these results should be used only by healthcare providers to render diagnosis or treatment, or to monitor progress of medical conditions. Note A: The results are presumptive; based only on screening methods, and they have not been confirmed by a definitive method. LDT Notes: Confirmation tests were developed and their analytical performance characteristics have been determined by [employer]. It has not been cleared or approved by the FDA. This assay has been validated pursuant to the CLIA regulations and is used for clinical purposes. Healthcare Providers needing Interpretation assistance, please contact us at [phone] ( ) M-F, 8am to 10pm EST URINE SPECIMEN / Unknown 03/07/2024 11:39 AM CDT 03/08/2024 9:48 AM CDT Narrative Resulting Agency Comment Performing Organization Information: ?Site ID: ?[facility] ?Address: [address] [place] [id number] ?Director: Gal Vaca ?Site ID: [id number] ?Name: [facility] ?Address: [id number] [place], [place] [address] [address] ?Director: Daksha Hernández MD us Samantha Saravia MD URINE ORDERABLES Final R esult [facility] - TATIANA KINSEY [facility] [address] [place], [place] [id number] [place] [address] [place], [place] [address] [[email or web address]] documented in this encounter Visit Diagnoses Diagnosis Attention deficit hyperactivity disorder (ADHD), combined type- Primary Vitamin D deficiency Unspecified vitamin D deficiency Mixed hyperlipidemia Diabetes mellitus screening Screening for diabetes mellitus Primary insomnia Persistent disorder of initiating or maintaining sleep Lymphedema Other lymphedema Medication management Encounter for long-term (current) use of other medications Therapeutic drug monitoring Encounter for therapeutic drug monitoring documented in this encounter Additional Health Concerns Assessment Noted Time PHQ-9 Depression Total Score: 14 023 1:30 PM DELIVERY MANAGER documented as of this encounter Care Teams Plate Mill Hand Relationship Specialty Start Date End Date Samantha Saravia MD [address] [facility] [address] [place] [id number] PCP - General FAMILY PRACTICE 03/07/24 documented as of this encounter
--- OUTSIDE RECORDS SUMMARY | 2024-07-24 00:44 | XMS_ITS | Encounter Summary ---
Author Organization [facility] Address [address] [place] [address]. [place], [place] [phone] [place] [address] Care Team Providers Care Patent Examiner Name Role Phone Charley Cabrera MD Primary Care Provider [phone] Encounter Details Date Type Department Care Team (Late st Contact Info) Description 10/16/2023 Medication Management [facility] Medical Group Family & Internal Medicine [address] [address] Gary Parks, DORINA [address] [place] [address] [place] [address] Social History Tobacco Use Types Packs/Day Years [...] as of this encounter Progress Notes * Gary Parks NP - 10/16/2023 4:23 PM CDT Patient needing refill of her adderall with a dose adjustment to 20mg documented in this encounter Plan of Treatment Upcoming Encounters Date Type Department Care Team (Late st Contact Info) Description 09/08/2024 10:10 AM WELDING MACHINE OPERATOR HELPER GAS Office Visit [facility] Medical Group Family Medicine - [place] [address] [place], [place] [address] Samantha Sanders MD [address] [place], [place] [id number] documented as of this encounter Visit Diagnoses Diagnosis Attention deficit hyperactivity disorder (ADHD), combined type- Primary documented in this encounter Additional Health Concerns Assessment Noted Time PHQ-9 Depression Total Score: 14 023 1:30 PM WELDING MACHINE OPERATOR HELPER GAS documented as of this encounter Care Teams Patent Examiner Relationship Specialty [place] [address] [place] [address] PCP - General FAMILY PRACTICE 04/21/22 03/03/24 documented as of this encounter
--- OUTSIDE RECORDS SUMMARY | 2024-07-24 00:44 | XMS_ITS | Encounter Summary ---
Author Organization [facility] Address [address] [place] [address]. [place], [place] [address] [place] [address] Care Team Providers Care Leather Belt Shaper Name Role Phone Samantha Sanders MD Primary Care Provider + Reason for Visit * Reason Onset Date Comments Question 03/11/2024 Information 03/11/2024 Encounter Details Date Type Department Care Team (Late st Contact Info) Description 03/11/2024 Telephone [facility] Medical Group Family Medicine [facility] [address] [facility] [address] [place] [address] Samantha Sanders MD [address] [facility] [address] [place] [address] Question; Information Social History Tobacco Use Types Packs/Day Years [...] as of this encounter Progress Notes * Maricel Brown MA - 03/11/2024 2:42 PM CDT Spoke with Carson at the [facility] in [place]. They do have the name brand Vyvanse 40mg in stock and he looked and they do carry that mg and amt. Pt can't merchandise pickup/receiving associate till tomorrow. I called the patient and she is aware of the above. She will merchandise pickup/receiving associate tomorrow. * Promise Gamez - 03/11/2024 1:29 PM CDT Pt is calling and only wanted to speak to Maricel in regards to some issues. Please call her back MADDI. Pt CB# [phone] documented in this encounter Plan of Treatment Upcoming Encounters Date Type Department Care Team (Late st Contact Info) Description 09/08/2024 10:10 AM DIRECTOR OF EXHIBITS Office Visit [facility] Medical Group Family Medicine - [place] [address] [place] [address] [address] [place], [place] [address] Samantha Sanders MD [address] [place], [place] [address] documented as of this encounter Visit Diagnoses Not on filedocumented in this encounter Additional Health Concerns Assessment Noted Time PHQ-9 Depression Total Score: 14 023 1:30 PM DIRECTOR OF EXHIBITS documented as of this encounter Care Teams Leather Belt Shaper Relationship Specialty Start Date End Date Samantha Sanders MD [address] [place], [place] [address] PCP - General FAMILY PRACTICE 03/07/24 documented as of this encounter
--- OUTSIDE RECORDS SUMMARY | 2024-07-24 00:44 | XMS_ITS | Encounter Summary ---
Author Organization [facility] Address [address] [place] [address]. [place], [place] [address] [place] [address] Care Team Providers Care Precinct Commanding Officer Name Role Phone Charley Cabrera MD Primary Care Provider [phone] Reason for Visit * Reason Onset Date Comments Medication Request 12/03/2023 Encounter Details Date Type Department Care Team (Late Contact Info) Description 12/03/2023 Telephone [facility] Medical Group Family & Internal Medicine [address] [address] Gary Parks, DORINA [address] [facility] [place] [address] Medication Request Social History Tobacco Use Types Packs/Day Years [...] Encounters Date Type Department Care Team (Late Contact Info) Description 09/08/2024 10:10 AM INSERTER OPERATOR Office Visit [facility] Medical Group Family Medicine - [place] [address] [place] [address] Samantha Sanders MD [address] [place] [address] documented as of this encounter Visit Diagnoses Diagnosis Attention deficit hyperactivity disorder (ADHD), combined type documented in this encounter Additional Health Concerns Assessment Noted Time PHQ-9 Depression Total Score: 14 023 1:30 PM INSERTER OPERATOR documented as of this encounter Care Teams Precinct Commanding Officer Relationship Specialty [place] [address] [facility] [place] [address] PCP - General FAMILY PRACTICE 04/21/22 03/03/24 documented as of this encounter
--- OUTSIDE RECORDS SUMMARY | 2024-07-24 00:44 | XMS_ITS | Encounter Summary ---
Author Organization [facility] Address [address] [place] [address]. [place], [place] [address] [place] [address] Care Team Providers Care Gun Club Manager Name Role Phone Samantha Sanders MD Primary Care Provider + Reason for Visit * Reason Onset Date Comments Medication 05/25/2024 Encounter Details Date Type Department Care Team (Late st Contact Info) Description 05/25/2024 Telephone [facility] Medical Group Family Medicine [facility] [address] [address] Samantha Sanders MD [address] [address] Medication Social History Tobacco Use Types [...] as of this encounter Progress Notes * Gabi Fam MA - 05/25/2024 1:10 PM CST Patient informed and she will call back to schedule an appointment after she reviews her schedule. I also informed her is she needs immediate care they do have a walk-in behavioral health clinic in [place]. She voiced understanding ITATIVE RESEARCHER * Gabi Fam MA - 05/25/2024 1:08 PM CST I called and lm with her sister to call office ITATIVE RESEARCHER * Samantha Sanders MD - 05/25/2024 12:57 PM CST I would prefer to meet first. We had switched to lunesta, then off again and then onto vyvanse which we just recently filled. Let's meet to decide options first. Happy to see her Thursday ITATIVE RESEARCHER * Edna Mendoza - 05/25/2024 11:58 AM CST Karlie called in asking for an appt anytime this week but you don't have any openings, she has beenhaving crying spells lately. I offered her an appointment for next week, she is going to check her schedule and call me back but she mentioned maybe going down to 10 mg of Vyvanse and wanted me to ask you if you could prescribe that. ITATIVE RESEARCHER documented in this encounter Plan of Treatment Upcoming Encounters Date Type Department Care Team (Late st Contact Info) Description 09/08/2024 10:10 AM QUALITATIVE RESEARCHER Office Visit [facility] Medical Group Family Medicine - [place] [address] [place] [address] Samantha Sanders MD [address] [place] [address] documented as of this encounter Visit Diagnoses Not on filedocumented in this encounter Additional Health Concerns Assessment Noted Time PHQ-9 Depression Total Score: 14 023 1:30 PM QUALITATIVE RESEARCHER documented as of this encounter Care Teams Gun Club Manager Relationship Specialty Start Date End Date Samantha Sanders MD [address] [place] [address] PCP - General FAMILY PRACTICE 03/07/24 documented as of this encounter
--- OUTSIDE RECORDS SUMMARY | 2024-07-24 00:44 | XMS_ITS | Encounter Summary ---
Author Organization [facility] Address [address] [place] [address]. [place], [place] [address] [place] [address] Care Team Providers Care Assistant Front Desk Manager Name Role Phone Samantha Sanders MD Primary Care Provider + Reason for Visit * Reason Onset Date Comments Lab Order 05/09/2024 Encounter Details Date Type Department Care Team (Late st Contact Info) Description 05/09/[address] [facility] Medical [facility] Family Medicine [place] [address] [facility] [address] [place] [address] Samantha Sanders MD [address] [facility] [address] [place] [address] Lab Order Social History Tobacco Use Types Packs/Day Years [...] Progress Notes * Gabi Fam MA - 05/09/2024 11:19 AM CDT Order sent to [facility] * Edna Mendoza - 05/09/2024 11:13 AM CDT Karlie called in, she wants to know if you can send her lab order to [facility]. documented in this encounter Plan of Treatment Upcoming Encounters Date Type Department Care Team (Late st Contact Info) Description 09/08/2024 10:10 AM CHILD LIFE SPECIALIST Office Visit [facility] Medical Group Family Medicine - [place] [address] [place], [place] [phone] Samantha Sanders MD [address] [place], [place] [phone] Scheduled Orders Name Type Priority Associated Diagnoses Orde r Schedule LIPID PANEL Lab Today Mixed hyperlipidemia Expected: 05/09/2024, Expires: 03/08/2025 documented as of this encounter Visit Diagnoses Diagnosis Mixed hyperlipidemia documented in this encounter Additional Health Concerns Assessment Noted Time PHQ-9 Depression Total Score: 14 023 1:30 PM CHILD LIFE SPECIALIST documented as of this encounter Care Teams Assistant Front Desk Manager Relationship Specialty Start Date End Date Samantha Sanders MD [address] [place], [place] [address] PCP - General FAMILY PRACTICE 03/07/24 documented as of this encounter
--- OUTSIDE RECORDS SUMMARY | 2024-07-24 00:44 | XMS_ITS | Encounter Summary ---
Author Organization [facility] Address [address] [place] [address]. [place], [place] [address] [place] [address] Care Team Providers Care Tack Puller Name Role Phone Samantha Sanders MD Primary Care Provider + Encounter Details Date Type Department Care Team (Late Contact Info) Description 03/07/2024 Orders Only [address] [place] [address] Maricel Brown MA Social History Tobacco Use Types Packs/Day Years [...] (Late Contact Info) Description 09/08/2024 10:10 AM REMEDIATION BIOANALYTICS CONSULTANT Office Visit [facility] [address] [facility] [address] [place] [address] Samantha Sanders MD [address] [place] [address] documented as of this encounter Procedures Procedure Name Priority Date/Time Associated Diagnosis Comments HEMOGLOBIN, GLYCOSYLATED Routine 03/07/2024 11:46 AM CDT Diabetes mellitus screening COMPREHENSIVE METABOLIC PANEL Routine 03/07/2024 11:46 AM CDT Mixed hyperlipidemia LIPID PANEL Routine 03/07/2024 11:46 AM CDT Mixed hyperlipidemia CBC W/DIFF AUTOMATED Routine 03/07/2024 11:46 AM CDT Elevated WBC count VITAMIN D, 25 [place] Routine 03/07/2024 11:4 6 AM CDT Vitamin D deficiency documented in this encounter Results * (ABNORMAL) CBC W/DIFF AUTOMATED (03/07/2024 11:46 AM CDT) WBC 7.93 4.00 - 10.80 x10'3/uL 03/07/2024 2:38 PM CDT [facility] RBC 4.46 4.10 - 5.40 x10'6/uL 03/07/2024 2:38 PM CDT -[facility] HGB 13.9 12.0 - 16.0 G/DL 03/07/2024 2:38 PM CDT [facility] HCT 41.6 36.0 - 47.0 % 03/07/2024 2:38 PM CDT [facility] MCV 93.3 78.0 - 100.0 FL 03/07/2024 2:38 PM CDT [facility] MCH 31.2(H) 27.0 - 31.0 PG 03/07/2024 2:38 PM CDT [facility] MCHC 33.4 33.0 - 36.0 G/DL 03/07/2024 2:38 PM CDT [facility] RDW 12.5 11.5 - 14.5 % 03/07/2024 2:38 PM CDT [facility] PLT 401(H) 150 - 350 x10'3/uL 03/07/2024 2:38 PM CDT -[facility] MPV 10.1 7.4 - 10.4 FL 03/07/2024 2:38 PM CDT [facility] DIFFERENTIAL TYPE AUTOMATED DIFFERENTIAL 03/07/2024 2:38 PM CDT [facility] NEUTROPHILS % 63.9 % 03/07/2024 2:38 PM CDT [facility] LYMPHOCYTES % 29.0 % 03/07/2024 2:38 PM CDT [facility] MONOCYTES % 5.4 % 03/07/2024 2:38 PM CDT [facility] EOSINOPHILS % 0.9 % 03/07/2024 2:38 PM CDT [facility] BASOPHILS % 0.5 % 03/07/2024 2:38 PM CDT [facility] IMMATURE GRANS % 0.3 % 03/07/2024 2:38 PM CDT [facility] ABS. NEUTROPHILS 5.07 1.60 - 8.30 x10'3/uL 03/07/2024 2:38 PM CDT [facility] ABS. LYMPHOCYTES 2.30 0.80 - 4.70 x10'3/uL 03/07/2024 2:38 PM CDT [facility] ABS. MONOCYTES 0.43 0.00 - 1.50 x10'3/uL 03/07/2024 2:38 PM CDT [facility] ABS. EOSINOPHILS 0.07 0.00 - 0.40 x10'3/uL 03/07/2024 2:38 PM CDT [facility] ABS. BASOPHILS 0.04 0.00 - 0.20 x10'3/uL 03/07/2024 2:38 PM CDT [facility] ABS. IMMATURE GRANULOCYTES 0.02 0.00 - 0.03 x10'3/uL 03/07/2024 2:38 PM CDT [facility] 03/07/2024 11:4 6 AM CDT us Lexie Manzanares PA-C LABORATORY Final Result [facility] [address] [place] [address], * (ABNORMAL) COMPREHENSIVE METABOLIC PANEL (03/07/2024 11:46 AM CDT) SODIUM S/P/B 141 136 - 145 MMOL/L 03/07/2024 3:56 PM CDT [facility] POTASSIUM S/P/B 4.2 3.5 - 5.1 MMOL/L 03/07/2024 3:56 PM CDT [facility] CHLORIDE S/P/B 108(H) 98 - 107 MMOL/L 03/07/2024 3:56 PM CDT [facility] CO2 28.1 21 - 32 MMOL/L 03/07/2024 3:56 PM CDT [facility] GLUCOSE 93 70 - 99 MG/DL 03/07/2024 3:56 PM CDT [facility] BUN 10 7 - 18 MG/DL 03/07/2024 3:56 PM CDT [facility] CREATININE S/P/B 0.90 0.55 - 1.02 MG/DL 03/07/2024 3:56 PM CDT [facility] CALCIUM S/P/B 9.0 8.4 - 10.5 MG/DL 03/07/2024 3:56 PM CDT [facility] BILIRUBIN TOTAL S/P/B 0.4 0.2 - 1.0 MG/DL 03/07/2024 3:56 PM CDT [facility] ALKALINE PHOSPHATASE S/P/B 93 39 - 100 U/L 03/07/2024 3:56 PM CDT [facility] AST 13(L) 15 - 37 U/L 03/07/2024 3:56 PM CDT [facility] ALT 15 14 - 59 U/L 03/07/2024 3:56 PM CDT [facility] TOTAL PROTEIN S/P/B 7.0 6.4 - 8.2 G/DL 03/07/2024 3:56 PM CDT [facility] ALBUMIN S/P/B 3.9 3.4 - 5.0 G/DL 03/07/2024 3:56 PM T [facility] ANION GAP 4.9(L) 5 - 15 MMOL/L 03/07/2024 3:56 PM T [facility] Comment:REFERENCE RANGE NOT ESTABLISHED OSMOLALITY (CALC) 291 MOSM/KG 024 3:56 PM T [facility] Comment:REFERENCE RANGE NOT ESTABLISHED GFR ESTIMATE 78(L) >90 ML/MIN/1. 73 M2 03/07/2024 3:56 PM T [facility] GFR NOTES GFR REFERENCE S: 03/07/2024 3:56 PM T [facility] Comment: THE ESTIMATED GFR IS CALCULATED [...] 03/07/2024 11:4 6 AM CDT us Samantha Sanders MD LABORATORY Final Re sult [facility] [address] [place] [address], [place] [phone] * (ABNORMAL) LIPID PANEL (03/07/2024 11:46 AM CDT) CHOLESTEROL 283(H) <200 MG/DL 03/07/2024 3:56 PM CDT [facility] TRIGLYCERIDES 250(H) <150 MG/DL 03/07/2024 3:56 PM CDT [facility] HDL 43 >40 MG/DL 03/07/2024 3:56 PM CDT [facility] LDL-C 190(H) <100 MG/DL 03/07/2024 3:56 PM CDT [facility] VLDL CALCULATION 50(H) 5 - 28 MG/DL 03/07/2024 3:56 PM CDT [facility] CHOL/HDL RATIO 6.6(H) 0.0 - 4.0 03/07/2024 3:56 PM CDT [facility] LDL/HDL 4.4(H) 0.41 - 2.13 03/07/2024 3:56 PM CDT [facility] NON HDL CHOLESTEROL 240(H) <140 MG/DL 03/07/2024 3:56 PM CDT [facility] 03/07/2024 11:4 6 AM CDT us Samantha Sanders MD LABORATORY Final Re sult [facility] [address] [place] [address], [place] [phone] * (ABNORMAL) HEMOGLOBIN, GLYCOSYLATED (03/07/2024 11:46 AM CDT) [facility] HGB A1C 5.5 4.5 - 6.2 % 03/07/2024 3:43 PM CDT [facility] ESTIMATED AVG GLUCOSE 111(H) 74 - 106 MG/DL 03/07/2024 3:43 PM CDT [facility] 03/07/2024 11:4 6 AM CDT Samantha Sanders MD LABORATORY Final Re sult Performing Organization Address [facility] de Phone Number [facility] [address] [place] [address], [place] [phone] * VITAMIN D, 25 [place] (03/07/2024 11:46 AM CDT) [facility] VITAMIN D 25 HYDROXY TOTAL S/P/B 66.2 30 - 100 NG/ML 03/07/2024 3:56 PM CDT [facility] Comment: ? DEFICIENT ??<20 ?INSUFFICIENT 20-30 ?SUFFICIENT 30-100 03/07/2024 11:4 6 AM CDT Samantha Sanders MD LABORATORY Final Re sult Performing Organization Address [facility] de Phone Number [facility] [address] [place] [address], [place] [phone] documented in this encounter Visit Diagnoses Diagnosis Vitamin D deficiency Unspecified vitamin D deficiency Diabetes mellitus screening Screening for diabetes mellitus Mixed hyperlipidemia Elevated WBC count Leukocytosis, unspecified documented in this encounter Additional Health Concerns Assessment Noted Time PHQ-9 Depression Total Score: 14 06/17/ 023 1:30 PM REMEDIATION BIOANALYTICS CONSULTANT documented as of this encounter Care Teams Tack Puller Relationship Specialty Start Date End Date Samantha Sanders MD [address] [place] [address] PCP - General FAMILY PRACTICE 03/07/24 documented as of this encounter
--- OUTSIDE RECORDS SUMMARY | 2024-07-24 00:44 | XMS_ITS | Encounter Summary ---
Author Organization [facility] Address [address] [place] [address]. [place], [place] [address] [place] [address] Care Team Providers Care Production Team Leader Name Role Phone Charley Cabrera MD Primary Care Provider [phone] Samantha Sanders MD Primary Care Provider + Encounter Details Date Type Department Care Team (Late st Contact Info) Description 12/31/2023 [employer] Message Enc [facility] Medical Group Family & Internal Medicine [address] [address] [employer], [facility] Provider yeast Social History Tobacco Use Types Packs/Day Years [...] st Contact Info) Description 09/08/2024 10:10 AM POLICE ACADEMY INSTRUCTOR Office Visit [facility] Family Medicine [facility] [address] [facility] [address] [place], [place] [address] Samantha Sanders MD [address] [place] [address] documented as of this encounter Visit Diagnoses Not on filedocumented in this encounter Additional Health Concerns Assessment Noted Time PHQ-9 Depression Total Score: 14 06/17/ 023 1:30 PM POLICE ACADEMY INSTRUCTOR documented as of this encounter Care Teams Production Team Leader Relationship Specialty [place] [address] [facility] [place] [address] PCP - General FAMILY PRACTICE 04/21/22 03/03/24 Samantha Sanders MD [address] [place] [address] PCP - General FAMILY PRACTICE 03/07/24 documented as of this encounter
--- OUTSIDE RECORDS SUMMARY | 2024-07-24 00:44 | XMS_ITS | Encounter Summary ---
Author Organization [facility] Address [address] [place] [address]. [place], [place] [address] [place] [address] Care Team Providers Care Turning Sander Tender Name Role Phone Charley Cabrera MD Primary Care Provider [phone] Reason for Visit * Reason Comments Medication Coverage Encounter Details Date Type Department Care Team (Late st Contact Info) Description 11/02/2023 9:20 AM CDT Office Visit [facility] Family & Internal Medicine [address] [address] Gary Marrero, DORINA [address] [facility] [place] [address] Medication Coverage Social History Tobacco Use Types Packs/Day Years [...] Sign Reading Time Taken Comments Blood Pressure 102/62 11/02/2023 9:22 AM CDT Pulse 74 11/02/2023 9:22 AM CDT Temperature 36.7 ??C (98 ??F) 11/02/2023 9:22 AM CDT Respiratory Rate 16 11/02/2023 9:22 AM CDT Oxygen Saturation 99% 11/02/2023 9:22 AM CDT Inhaled Oxygen Concentration - - Weight 66.2 kg (146 lb) 11/02/2023 9:22 AM CDT Height 162.6 cm (5' 4 ) 11/02/2023 9:22 AM CDT Body Mass Index 25.06 11/02/2023 9:22 AM CDT documented in this encounter Progress Notes * Gary Marrero, MAST MAKER - 11/02/2023 9:20 AM CDT Reason for Visit: Medication adjustment History of Present Illness: Karlie Ivory is a 48-year-old female patient who is being treated for anxiety, seasonal allergies, and ADHD. Patient has tried 30mg immediate release, 10mg immediate release, and 20mg immediate release with positive results but patient notices the medication wears off in about 3-4hrs. Patient then has the return of her symptoms, which are not completing task fully, jumping from idea to idea, and having clarity issues. ROS: Review of Systems Constitutional: Negative. HENT: Negative. Eyes: Negative. Respiratory: Negative. Cardiovascular: Negative. Gastrointestinal: Negative. Endocrine: Negative. Genitourinary: Negative. Musculoskeletal: Negative. Allergic/Immunologic: Negative. Neurological: Negative. Hematological: Negative. Psychiatric/Behavioral: Negative. Medications: Current Outpatient Medications: ALPRAZolam (XANAX) 0.25 MG tablet, Take 1 tablet (0.25 mg total) by mouth daily as needed for Anxiety (Panic attack onset)., Disp: 30 tablet, Rfl: 2 amphetamine-dextroamphetamine (ADDERALL) 20 MG tablet, Take 1 tablet (20 mg total) by mouth 2 (two)times daily., Disp: 60 tablet, Rfl: 0 cetirizine (ZYRTEC) 10 MG tablet, Take 1 tablet (10 mg total) by mouth daily., Disp: 90 tablet, Rfl: 1 estradiol 1 MG tablet, Take 2 tablets (2 mg total) by mouth daily., Disp: , Rfl: Multiple Vitamin (MULTIVITAMIN ADULT OR), Take by mouth daily. , Disp: , Rfl: pravastatin (PRAVACHOL) 40 MG tablet, Take 1 tablet (40 mg total) by mouth nightly at bedtime., Disp: 30 tablet, Rfl: 2 Review of patient's allergies indicates: No Known Allergies Past Medical History: Diagnosis Date ADHD (attention deficit hyperactivity disorder) Allergic rhinitis 05/10/2018 Anxiety Bowel obstruction ([facility]) COVID-19 Strep throat Ulcerative (chronic) enterocolitis, other complication ([facility]) Ulcerative colitis ([facility]) 04/15/2018 Ulcerative colitis ([facility]) Past Surgical History: Procedure Laterality Date APPENDECTOMY APPENDECTOMY BREAST LUMPECTOMY Left HERNIA REPAIR HYSTERECTOMY Social History Socioeconomic History Marital status: Tobacco Use Smoking status: Every Day Current packs/day: 0.25 Average packs/day: 0.3 packs/day for 15.0 years (3.8 ttl pk-yrs) Types: Cigarettes Passive exposure: Past Smokeless tobacco: Never Tobacco comments: cut back alot Vaping Use Vaping status: Every Day Substances: Nicotine, Flavoring Devices: Disposable, Pre-filled or refillable cartridge Substance and Sexual Activity Alcohol use: Yes Alcohol/week: 5.0 standard drinks of alcohol Types: 3 Glasses of wine per week Comment: occ Drug use: Not Currently Sexual activity: Not Currently control/protection: Surgical Social History Narrative Live alone with her dog Family History Problem Relation Name Age of Onset Heart Mother Heart Father Heart Paternal Grandfather Aneurysm Paternal Grandfather Cancer Paternal Grandfather colon Family Status Relation Name Status Mother Alive Father Alive PGF No partnership data on file Filed Vitals: 11/02/23 0922 BP: 102/62 Pulse: 74 Resp: 16 Temp: 98 ??F (36.7 ??C) TempSrc: Temporal SpO2: 99% Weight: 66.2 kg (146 lb) Height: 1.626 m (5' 4 ) Physical Exam: Physical Exam HENT: Head: Normocephalic. Right Ear: Tympanic membrane normal. Left Ear: Tympanic membrane normal. Mouth/Throat: Pharynx: Oropharynx is clear. Cardiovascular: Rate and Rhythm: Normal rate and regular rhythm. Pulses: Normal pulses. Heart sounds: Normal heart sounds. Pulmonary: Effort: Pulmonary effort is normal. Breath sounds: Normal breath sounds. Abdominal: General: Bowel sounds are normal. Musculoskeletal: General: Normal range of motion. Skin: General: Skin is warm. Neurological: General: No focal deficit present. Mental Status: She is alert. Psychiatric: Mood and Affect: Mood normal. Diagnoses/Impression: Karlie was seen today for evaluation of ADHD and her seasonal allergies. Patient is currently on 20mg immediate release Adderall, which is working well, but not long enough. ADHD symptoms come on in the afternoon. Patient would benefit from a second dose of Adderall in afternoon for additional 4-5hr coverage. Patient having seasonal allergy symptoms of itching eyes, nasal drip, and ear canal irritation. Patient refilled on her Cetirizine 10mg daily. Patient is controlled on her Alprazolam 0.25mg tab PRN for anxiety. Patient advised to continue medication when needed. Diagnoses and all orders for this visit: Attention deficit hyperactivity disorder (ADHD), combined type - amphetamine-dextroamphetamine (ADDERALL) 20 MG tablet; Take 1 tablet (20 mg total) by mouth 2 (two) times daily. Seasonal allergies - cetirizine (ZYRTEC) 10 MG tablet; Take 1 tablet (10 mg total) by mouth daily. Generalized anxiety disorder - Continue Alprazolam 0.25mg tab PRN for anxiety onset. Recommendations and Plan: Follow up in 30 days for evaluation for ADHD. GARY MARRERO NP documented in this encounter Plan of Treatment Upcoming Encounters Date Type Department Care Team (Late st Contact Info) Description 09/08/2024 10:10 AM BLEACH ANALYST Office Visit [facility] Family Medicine - [place] [address] [place], [place] [id number] Samantha Sanders MD [address] [place], [place] [id number] documented as of this encounter Visit Diagnoses Diagnosis Attention deficit hyperactivity disorder (ADHD), combined type- Primary Seasonal allergies Allergic rhinitis, cause unspecified Generalized anxiety disorder documented in this encounter Additional Health Concerns Assessment Noted Time PHQ-9 Depression Total Score: 14 023 1:30 PM BLEACH ANALYST documented as of this encounter Care Teams Turning Sander Tender Relationship Specialty [place] [address] [address] [place] [address] PCP - General FAMILY PRACTICE 04/21/22 03/03/24 documented as of this encounter
--- OUTSIDE RECORDS SUMMARY | 2024-07-24 00:44 | XMS_ITS | Encounter Summary ---
Author Organization [facility] Address [address] [place] [address]. [place] [id number] [place] [address] Care Team Providers Care As400 Operator Name Role Phone Charley Cabrera MD Primary Care Provider Reason for Referral * Consultation (Routine) - Pending Review Specialty Diagnoses / Procedures Referred By Contranjeet t Referred To Contact PSYCHOLOGY Diagnoses ADHD Depression with anxiety Insomnia Procedures OFFICE/OUTPATIENT NEW LOW MDM 30-44 MINUTES OFFICE/OUTPT VISIT,NEW,LEVL IV OFFICE/OUTPT VISIT,NEW,LEVL V OFFICE/OUTPT VISIT,EST,LEVL III OFFICE/OUTPT VISIT,EST,LEVL IV OFFICE/OUTPT VISIT,EST,LEVL V Charley Cabrera [place] [id number] [place] [address]. [address] [address] Phone: tel: fax: [address] [address] Phone: tel: fax: Referral ID Status Reason Start Date Expiration Date Visits Requested Visits Authorized [id number] Pending Review Specialty Services 01/25/2024 01/24/2025 99 99 Reason for Visit * Reason Onset Date Comments Referral 01/25/2024 Encounter Details Date Type Department Care Team (Late st Contact Info) Description 01/25/2024 Telephone [facility] Family & Internal Medicine [facility] [address] [place] [address] [place] [address] [address] [place] [address] Referral Social History Tobacco Use Types Packs/Day Years [...] as of this encounter Progress Notes * Edna Nunez RN - 01/25/2024 4:02 PM CDT Referral entered * Edna Nunez RN - 01/25/2024 3:09 PM CDT What type of counseling is she requesting? * Naty Mccullough - 01/25/2024 2:32 PM CDT Pt requested a referral to a counselor that is in network with her [employer] insurance. Please refer her to one, MADDI per pt if possible. Thanks documented in this encounter Plan of Treatment Upcoming Encounters Date Type Department Care Team (Late st Contact Info) Description 09/08/2024 10:10 AM MATERIAL REQUIREMENTS WORKER Office Visit [facility] Family Medicine - [place] [address] [facility] [address] [place] [address] Samantha Sanders MD [address] [place] [address] Scheduled Referrals Name Type Priority Associated Diagnoses Orde r Schedule Ambulatory Referral to Psychology Referral Routine ADHD Depression with anxiety Insomnia Ordered: 01/25/2024 documented as of this encounter Visit Diagnoses Diagnosis ADHD- Primary Depression with anxiety Dysthymic disorder Insomnia Insomnia, unspecified documented in this encounter Additional Health Concerns Assessment Noted Time PHQ-9 Depression Total Score: 14 023 1:30 PM MATERIAL REQUIREMENTS WORKER documented as of this encounter Care Teams As400 Operator Relationship Specialty [place] [address] [facility] [place] [address] PCP - General FAMILY PRACTICE 04/21/22 03/03/24 documented as of this encounter
--- OUTSIDE RECORDS SUMMARY | 2024-07-24 00:44 | XMS_ITS | Encounter Summary ---
Author Organization [facility] Address [address] [place] [address]. [place], [place] [address] [place], [place] [id number] Care Team Providers Care Toddler Lead Teacher Name Role Phone Charley Cabrera MD Primary Care Provider [phone] Reason for Visit * Reason Onset Date Comments Medication Request 12/28/2023 Encounter Details Date Type Department Care Team (Late st Contact Info) Description 12/28/2023 Telephone [facility] Family & Internal Medicine [facility] [id number] [place] [phone] [place]rera [place] [id number] [place] [address]. [address] [place] [address] Medication Request Social History Tobacco Use Types [...] Progress Notes * Edna Nunez RN - 12/31/2023 11:14 AM CDT Medication sent as directed per provider. * Gary Parks NP - 12/31/2023 10:49 AM CDT Please send in Fluconazole(Diflucan) 150mg orally once. #1 cap /1 day * Edna Nunez RN - 12/31/2023 9:09 AM CDT Please advise on medication * Ninfa Chi LPN - 12/28/2023 10:27 AM CDT Pt called [facility] ordered AB last week for URI and tooth ache She thinks he has a yeast infection now and would like medication ordered tab Pharm [facility] [phone] documented in this encounter Plan of Treatment Upcoming Encounters Date Type Department Care Team (Late st Contact Info) Description 09/08/2024 10:10 AM FURNACE MAINTENANCE Office Visit [facility] Family Medicine - [place] [address] [facility] [address] [place] [address] Samantha Sanders MD [address] [place] [address] documented as of this encounter Visit Diagnoses Diagnosis Yeast infection- Primary Other and unspecified mycoses documented in this encounter Additional Health Concerns Assessment Noted Time PHQ-9 Depression Total Score: 14 023 1:30 PM FURNACE MAINTENANCE documented as of this encounter Care Teams Toddler Lead Teacher Relationship Specialty [place] [address] [address] [place] [address] PCP - General FAMILY PRACTICE 04/21/22 03/03/24 documented as of this encounter
--- OUTSIDE RECORDS SUMMARY | 2024-07-24 00:44 | XMS_ITS | Encounter Summary ---
Author Organization [facility] Address [address] [place] [address]. [place], [place] [id number] [place] [address] Care Team Providers Care Area Forester Name Role Phone Charley Cabrera MD Primary Care Provider [phone] Reason for Visit * Reason Comments Follow Up Pt here to discuss m edication and anxiety or PTSD Anxiety UTI Pt c/o frequent and uncontrollable urination starting thursday Encounter Details Date Type Department Care Team (Latest Contact Info) Description 01/25/2024 1:00 PM CDT Office Visit [facility] Family & Internal Medicine [address] [address] Gary Marrero, RIG OPERATOR [address] [place] [address] [place] [address] Follow Up (Pt here to discuss medication and anxiety or PTSD); Anxiety; UTI (Pt c/o frequent and uncontrollable urination starting thursday) Social History Tobacco Use Types Packs/Day Years [...] Sign Reading Time Taken Comments Blood Pressure 119/73 01/25/2024 2:05 PM CDT Pulse 92 01/25/2024 2:05 PM CDT Temperature 36.6 ??C (97.9 ??F) 01/25/2024 2:05 PM CD T Respiratory Rate 18 01/25/2024 2:05 PM CDT Oxygen Saturation 99% 01/25/2024 2:05 PM CDT Inhaled Oxygen Concentration - - Weight 70.3 kg (155 lb) 01/25/2024 2:05 PM CDT Height 162.6 cm (5' 4 ) 01/25/2024 2:05 PM CDT Body Mass Index 26.61 01/25/2024 2:05 PM CDT documented in this encounter Progress Notes * Gary Marrero, DORINA - 01/25/2024 1:00 PM CDT Reason for Visit: Follow Up (Pt here to discuss medication and anxiety or PTSD), Anxiety, and UTI (Pt c/o frequent and uncontrollable urination starting thursday) History of Present Illness: Karlie Ivory is a 48-year-old female patient who comes into clinic to discuss her struggles with ADHD, anxiety, depression, and her possibly having migraine headaches. Patient has been having lately severe headaches. Headaches don't go away with OTC treatment. ROS: Review of Systems Constitutional: Positive for fatigue. HENT: Negative. Respiratory: Negative. Cardiovascular: Negative. Gastrointestinal: Negative. Genitourinary: Negative. Musculoskeletal: Negative. Neurological: Positive for headaches. Pulsating, throbbing headache on left side of head Psychiatric/Behavioral: Positive for decreased concentration and sleep disturbance. The patient is nervous/anxious. Medications: Current Outpatient Medications: cetirizine (ZYRTEC) 10 MG tablet, Take 1 tablet (10 mg total) by mouth daily. (Patient taking differently: Take 1 tablet (10 mg total) by mouth as needed.), Disp: 90 tablet, Rfl: 1 estradiol 1 MG tablet, Take 2 tablets (2 mg total) by mouth daily., Disp: , Rfl: lisdexamfetamine (VYVANSE) 30 MG capsule, Take 1 capsule (30 mg total) by mouth every morning., Disp: 30 capsule, Rfl: 0 LORazepam (ATIVAN) 1 MG tablet, Take 1 tablet (1 mg total) by mouth daily., Disp: , Rfl: Multiple Vitamin (MULTIVITAMIN ADULT OR), Take by mouth daily. , Disp: , Rfl: pravastatin (PRAVACHOL) 40 MG tablet, Take 1 tablet (40 mg total) by mouth nightly at bedtime., Disp: 30 tablet, Rfl: 2 spironolactone (ALDACTONE) 50 MG tablet, Take 1 tablet (50 mg total) by mouth daily., Disp: , Rfl: topiramate (TOPAMAX) 25 MG tablet, Take 1 tablet (25 mg total) by mouth 2 (two) times daily., Disp:60 tablet, Rfl: 0 ALPRAZolam (XANAX) 0.25 MG tablet, Take one tab by mouth daily as needed for anxiety(panic attack onset). (Patient not taking: Reported on 01/25/2024), Disp: 30 tablet, Rfl: 2 No Known Allergies Past Medical History: Diagnosis Date ADHD (attention deficit hyperactivity disorder) Allergic rhinitis 05/10/2018 Anxiety Bowel obstruction ([facility]) COVID-19 Strep throat Ulcerative (chronic) enterocolitis, other complication ([facility]) Ulcerative colitis ([facility]) 04/15/2018 Ulcerative colitis ([facility]) Past Surgical History: Procedure Laterality Date APPENDECTOMY [...] No partnership data on file Filed Vitals: 01/25/24 1405 BP: 119/73 Pulse: 92 Resp: 18 Temp: 97.9 ??F (36.6 ??C) TempSrc: Temporal SpO2: 99% Weight: 70.3 kg (155 lb) Height: 1.626 m (5' 4 ) Results for orders placed or performed in visit on 01/25/24 URINALYSIS AUTO DIP Result Value Ref Range COLOR (U) YELLOW YELLOW TRANSPARENCY CLEAR CLEAR GLUCOSE (U) NEGATIVE NEGATIVE MG/DL BILIRUBIN (U) NEGATIVE NEGATIVE KETONES (U) NEGATIVE NEGATIVE MG/DL SPECIFIC GRAVITY (U) 1.015 1.001 - 1.035 BLOOD (U) TRACE (Non Hemolyzed, Intact) (A) NEGATIVE U PH 6.5 5.0 - 9.0 PROTEIN (U) NEGATIVE NEGATIVE mg/dL UROBILINOGEN 0.2 0.2 - 1.0 EU/dL = mg/dL NITRITES NEGATIVE NEGATIVE MG/DL LEUKOCYTES (U) NEGATIVE NEGATIVE Physical Exam: Physical Exam Cardiovascular: Rate and Rhythm: Normal rate and regular rhythm. Pulses: Normal pulses. Pulmonary: Effort: Pulmonary effort is normal. Breath sounds: Normal breath sounds. Abdominal: General: Bowel sounds are normal. Musculoskeletal: General: Normal range of motion. Skin: General: Skin is warm. Capillary Refill: Capillary refill takes less than 2 seconds. Neurological: General: No focal deficit present. Mental Status: She is alert. Psychiatric: Mood and Affect: Mood normal. Diagnoses/Impression: Karlie was seen today for follow up, anxiety and uti.UA dipstick ordered and results were negative.No treatment planned for what she thought was a uti. Patient described that she is having common migraines. There is no aura but symptoms of throbbing, pulsating headaches that last 4 hours to a day on unilateral side are present. Patient will be given Topamax 25mg BID for treatment for 30 days. Patient has started her Vyvnase 30mg daily with success. This is a better medication for patient in regards to her insomnia. When she took Adderall she would be up all through the night. It also increased her anxiety. Patient feels that Vyvanse 30mg is a much smoother medication to take, per patient. Patient currently controlled on Lorazepam 1mg taken PRN for anxiety. Patient controlled on Pravastatin 40mg tab daily. Labs have been ordered for patient to check baseline levels. Follow up in 30 days. Diagnoses and all orders for this visit: Frequent urination - URINALYSIS AUTO DIP Intractable migraine without aura and with status migrainosus - topiramate (TOPAMAX) 25 MG tablet; Take 1 tablet (25 mg total) by mouth 2 (two) times daily. - CBC W/DIFF AUTOMATED; Future - COMPREHENSIVE METABOLIC PANEL; Future - TSH W/REFLEX; Future Attention deficit hyperactivity disorder (ADHD), combined type - COMPREHENSIVE METABOLIC PANEL; Future Generalized anxiety disorder - TSH W/REFLEX; Future Routine medical exam - CBC W/DIFF AUTOMATED; Future - LIPID PANEL; Future Hyperlipidemia, unspecified hyperlipidemia type - LIPID PANEL; Future Recommendations and Plan: Follow up in 30 days. GARY MARRERO NP documented in this encounter Plan of Treatment Upcoming Encounters Date Type Department Care Team (Late st Contact Info) Description 09/08/2024 10:10 AM VENEER JOINER Office Visit [facility] Family Medicine - [place] [address] [facility] [address] [place] [address] Samantha Sanders MD [address] [place] [address] documented as of this encounter Procedures Procedure Name Priority Date/Time Associated Diagnosis Comments URINALYSIS AUTO DIP Routine 01/25/2024 Frequent urination documented in this encounter Results * (ABNORMAL) URINALYSIS AUTO DIP (01/25/2024) COLOR (U) YELLOW YELLOW [id number], [place] TRANSPARENCY CLEAR CLEAR MG-[address], [place] GLUCOSE (U) NEGATIVE NEGATIVE MG/DL MG-[address], [place] BILIRUBIN (U) NEGATIVE NEGATIVE MG-[address], [place] KETONES MG/DL (U) NEGATIVE NEGATIVE MG/DL MG-[address], [place] SPECIFIC GRAVITY (U) 1.015 1.001 - 1.035 MG-[id number], [facility] BLOOD (U) TRACE (Non Hemolyzed, Intact)(A) NEGATIVE MG-[address], [place] U PH 6.5 5.0 - 9.0 MG-[address], [facility] PROTEIN (U) NEGATIVE NEGATIVE mg/dL MG-[address], [facility] UROBILINOGEN 0.2 0.2 - 1.0 EU/dL = mg/dL [id number], [facility] NITRITES NEGATIVE NEGATIVE MG/DL MG-[address], [facility] LEUKOCYTES (U) NEGATIVE NEGATIVE MG-[address], [place] URINE SPECIMEN OBTAINED BY CLEAN CATCH PROCEDURE / Unknown 01/25/2024 us Gary Marrero RIG OPERATOR URINE ORDERABLES Heide l Result -[id number], [place] [address] [place] [address], documented in this encounter Visit Diagnoses Diagnosis Frequent urination- Primary Urinary frequency Intractable migraine without aura and with status migrainosus Migraine without aura, with intractable migraine, so stated, with status migrainosus Attention deficit hyperactivity disorder (ADHD), combined type Generalized anxiety disorder Routine medical exam Routine general medical examination at a health care facility Hyperlipidemia, unspecified hyperlipidemia type documented in this encounter Additional Health Concerns Assessment Noted Time PHQ-9 Depression Total Score: 14 06/17/ 023 1:30 PM VENEER JOINER documented as of this encounter Care Teams Area Forester Relationship Specialty [place] [address] [place] [address] PCP - General FAMILY PRACTICE 04/21/22 03/03/24 documented as of this encounter
--- OUTSIDE RECORDS SUMMARY | 2024-07-24 00:44 | XMS_ITS | Encounter Summary ---
Author Organization [facility] Address [address] [place] [address]. [place], [place] [address] [place] [address] Care Team Providers Care Genetics Teacher Name Role Phone Samantha Saravia MD Primary Care Provider + Reason for Visit * Reason Onset Date Comments Medication Request 03/18/2024 Sleep Problem 03/18/2024 Encounter Details Date Type Department Care Team ([facility] Contact Info) Description 03/18/2024 Telephone [facility] Family Medicine - [place] [address] [facility] [address] [place] [address] Samantha Saravia MD [address] [facility] [address] [place] [address] Medication Request; Sleep Problem Social History Tobacco Use Types Packs/Day [...] Progress Notes * Maricel Brown MA - 04/01/2024 3:11 PM CDT Spoke with patient and she wasn't happy with the answer. She states that she will figure it out. Refused appointment. * Samantha Saravia MD - 04/01/2024 1:40 PM CDT I prefer not to combine stimulants and sleep aids. There are nonstimulant management options for ADHD we could discuss if she would like (office visit) * Edna Mendoza - 04/01/2024 12:44 PM CDT Karlie called in, she wants to know if there is something she can now take in place of the Vyvanse or she wants to know if she can go back on the Vyvanse? * Gabi Fam MA - 03/22/2024 10:00 AM CDT Patient informed * Gabi Fam MA - 03/22/2024 9:57 AM CDT I called and lmovm for patient to call office. I also sent her a my chart message with instructions. * Gabi Fam MA - 03/18/2024 12:15 PM CDT I called and lmovm to call office * Samantha Saravia MD - 03/18/2024 12:14 PM CDTAddended by: SAMANTHA SARAVIA on: 03/18/2024 12:14 PM Modules accepted: Orders * Samantha Saravia MD - 03/18/2024 12:13 PM CDT If she discontinues the vyvanse I am willing to try the lunesta. She should obviously also stop thetrazodone. Please notify I sent it in. * Edna Mendoza - 03/18/2024 12:02 PM CDT Karlie called in, she said the trazadone has not been working for sleep. She said it's also causingvisual disturbances (when she wakes up if she looks at something like her arm or a light and looks away she will see a dark shadow). She states she used to be on Lunesta and she did not have any addiction problems or side effects from it and it worked really good. She would get 6-8 hours of sleep. She wants to know if you could prescribe that. She said she would not take the Vyvanse if that was needed for her to be able to take Lunesta and get some sleep. documented in this encounter Plan of Treatment Upcoming Encounters Date Type Department Care Team (Late st Contact Info) Description 09/08/2024 10:10 AM PUBLIC HEALTH INFORMATICIAN Office Visit [facility] Family Medicine - [place] [address] [place] [address] Samantha Saravia MD [address] [place], [place] [phone] documented as of this encounter Visit Diagnoses Diagnosis Insomnia due to other mental disorder- Primary documented in this encounter Additional Health Concerns Assessment Noted Time PHQ-9 Depression Total Score: 14 06/17/ 023 1:30 PM PUBLIC HEALTH INFORMATICIAN documented as of this encounter Care Teams Genetics Teacher Relationship Specialty Start Date End Date Samantha Saravia MD [address] [facility] [address] [place] [address] PCP - General FAMILY PRACTICE 03/07/24 documented as of this encounter
--- OUTSIDE RECORDS SUMMARY | 2024-07-24 00:44 | XMS_ITS | Encounter Summary ---
Author Organization [facility] Address [address] [place] [address]. [place], [place] [address] [place] [address] Care Team Providers Care Director Of Reimbursement Name Role Phone Samantha Saravia MD Primary Care Provider + Reason for Visit * Reason Onset Date Comments Medication 05/09/2024 Encounter Details Date Type Department Care Team (Late st Contact Info) Description 05/09/2024 Telephone [facility] Family Medicine [facility] [address] [address] Samantha Saravia MD [address] [address] Medication Social History Tobacco Use [...] Progress Notes * Gabi Fam MA - 05/10/2024 3:31 PM CDT Patient informed * Samantha Saravia MD - 05/10/2024 3:29 PM CDTAddended by: SAMANTHA SARAVIA on: 05/10/2024 03:29 PM Modules accepted: Orders * Samantha Saravia MD - 05/10/2024 3:28 PM CDT I am willing to discontinue lunesta and return to vyvanse. Please notify I sent rx. * Edna Mendoza - 05/09/2024 11:12 AM CDT Karlie called in, she is back on a normal day shift now and states she no longer needs to take Lunesta, she wants to know if she can go back on Vyvanse now. documented in this encounter Plan of Treatment Upcoming Encounters Date Type Department Care Team (Late st Contact Info) Description 09/08/2024 10:10 AM RESEARCH LABORATORY TECHNICIAN Office Visit [facility] Family Medicine [facility] [address] [facility] [address] [place] [address] [phone] Samantha Saravia MD [address] [place], [place] [address] documented as of this encounter Visit Diagnoses Diagnosis Attention deficit hyperactivity disorder (ADHD), combined type- Primary documented in this encounter Additional Health Concerns Assessment Noted Time PHQ-9 Depression Total Score: 14 023 1:30 PM RESEARCH LABORATORY TECHNICIAN documented as of this encounter Care Teams Director Of Reimbursement Relationship Specialty Start Date End Date Samantha Saravia MD [address] [place] [address] PCP - General FAMILY PRACTICE 03/07/24 documented as of this encounter
--- OUTSIDE RECORDS SUMMARY | 2024-07-24 00:44 | XMS_ITS | Encounter Summary ---
Author Organization [facility] Address [address] [place] [address]. [place], [place] [address] [place] [address] Care Team Providers Care Sales And Retail Management Recruiter Name Role Phone Charley Cabrera MD Primary Care Provider [phone] Encounter Details Date Type Department Care Team (Late st Contact Info) Description 10/16/2023 Trac Emc & Safety Message Enc [facility] Family & Internal Medicine [address] [address] Gary Parks, DORINA [address] [place] [address] [place] [address] medication Social History Tobacco Use Types Packs/Day Years [...] Progress Notes * Edna Nunez RN - 10/30/2023 9:[address] Cabrera or is it Parag? * Jayne Chan MA - 10/16/2023 4:14 PM CDT Please advise. documented in this encounter Plan of Treatment Upcoming Encounters Date Type Department Care Team (Late st Contact Info) Description 09/08/2024 10:10 AM ADMINISTRATIVE ASSISTANT OFFICE MANAGER Office Visit [facility] Family Medicine - [place] [address] [facility] [address] [place] [address] [phone] Samantha Sanders MD [address] [place] [address] documented as of this encounter Visit Diagnoses Not on filedocumented in this encounter Additional Health Concerns Assessment Noted Time PHQ-9 Depression Total Score: 14 023 1:30 PM ADMINISTRATIVE ASSISTANT OFFICE MANAGER documented as of this encounter Care Teams Sales And Retail Management Recruiter Relationship Specialty [place] [address] [facility] [address] [place] [address] PCP - General FAMILY PRACTICE 04/21/22 03/03/24 documented as of this encounter
--- OUTSIDE RECORDS SUMMARY | 2024-07-24 00:44 | XMS_ITS | Encounter Summary ---
Author Organization [facility] Address [address] [place] [address]. [place], [place] [address] [place] [address] Care Team Providers Care New Car Make Ready Worker Name Role Phone Charley Cabrera MD Primary Care Provider [phone] Encounter Details Date Type Department Care Team (Latest Contact Info) Description 11/02/2023 Travel Social History Tobacco Use Types Packs/Day [...] st Contact Info) Description 09/08/2024 10:10 AM YOUTH ADVOCATE Office Visit [facility] Family Medicine - [place] [address] [place] [address] [phone] Samantha Sanders MD [address] [place], [place] [phone] documented as of this encounter Visit Diagnoses Not on filedocumented in this encounter Additional Health Concerns Assessment Noted Time PHQ-9 Depression Total Score: 14 023 1:30 PM YOUTH ADVOCATE documented as of this encounter Care Teams New Car Make Ready Worker Relationship Specialty [place] [address] [address] [place] [address] PCP - General FAMILY PRACTICE 04/21/22 03/03/24 documented as of this encounter
--- OUTSIDE RECORDS SUMMARY | 2024-07-24 00:44 | XMS_ITS | Encounter Summary ---
Author Organization [facility] Address [address] [place] [address]. [place], [place] [phone] [place] [address] Care Team Providers Care Furnace Reliner Name Role Phone Charley Cabrera MD Primary Care Provider [phone] Encounter Details Date Type Department Care Team (Late st Contact Info) Description 02/26/2024 Orders Only [facility] Family & Internal Medicine [facility] [address] [place] [address] [place] [address] [facility] [address]. [place], [place] [phone] Social History Tobacco Use Types Packs/Day Years [...] st Contact Info) Description 09/08/2024 10:10 AM LOG TUMBLER Office Visit [facility] Family Medicine [facility] [address] [facility] [address] [place] [address] Samantha Sanders MD [address] [place] [address] documented as of this encounter Visit Diagnoses Diagnosis Intractable migraine without aura and with status migrainosus Migraine without aura, with intractable migraine, so stated, with status migrainosus documented in this encounter Additional Health Concerns Assessment Noted Time PHQ-9 Depression Total Score: 14 023 1:30 PM LOG TUMBLER documented as of this encounter Care Teams Furnace Reliner Relationship Specialty [place] [address] [facility] [address] [place] [address] PCP - General FAMILY PRACTICE 04/21/22 03/03/24 documented as of this encounter
--- OUTSIDE RECORDS SUMMARY | 2024-07-24 00:44 | XMS_ITS | Encounter Summary ---
Author Organization [facility] Address [address] [place] [address]. [place], [place] [address] [place] [address] Care Team Providers Care Grinding Operator Name Role Phone Charley Cabrera MD Primary Care Provider [phone] Encounter Details Date Type Department Care Team (Late st Contact Info) Description 11/29/2023 Guzu Message Enc [facility] Family & Internal Medicine [address] [address] Gary Parks, DORINA [address] [place] [address] [place] [address] Medication related Social History Tobacco Use Types Packs/Day Years [...] Progress Notes * Edna Nunez RN - 12/02/2023 4:11 PM CDT Please review and send if appropriate documented in this encounter Plan of Treatment Upcoming Encounters Date Type Department Care Team (Late st Contact Info) Description 09/08/2024 10:10 AM CHIP SILO TENDER Office Visit [facility] Family Medicine - [place] [address] [place] [address] Samantha Sanders MD [address] [place], [place] [phone] documented as of this encounter Visit Diagnoses Diagnosis Attention deficit hyperactivity disorder (ADHD), combined type documented in this encounter Additional Health Concerns Assessment Noted Time PHQ-9 Depression Total Score: 14 023 1:30 PM CHIP SILO TENDER documented as of this encounter Care Teams Grinding Operator Relationship Specialty [place] [address] [address] [place] [address] PCP - General FAMILY PRACTICE 04/21/22 03/03/24 documented as of this encounter
--- OUTSIDE RECORDS SUMMARY | 2024-07-24 00:44 | XMS_ITS | Encounter Summary ---
Author Organization [facility] Address [address] [place] [address]. [place], [place] [address] [place] [address] Care Team Providers Care Senior Software Engineer Analytics Name Role Phone Samantha Sanders MD Primary Care Provider + Encounter Details Date Type Department Care Team (Late st Contact Info) Description 03/08/2024 One On One Adst Message Enc [facility] Family Medicine - [place] [address] [place] [address] Samantha Sanders MD [address] [place] [address] [phone] Cholesterol levels Social History Tobacco Use Types Packs/Day Years [...] Progress Notes * Samantha Sanders MD - 03/08/2024 8:30 AM CDTFrom: Karlie Ivory To: Dr. Samantha Sanders Sent: 03/08/2024 8:17 AM CDT Subject: Cholesterol levels In response to your question about the elevation??? yes I have missed doses of the pravastatin. However My diet hasn???t changed. If anything it???s improving. But I???ll make sure not to miss any doses and also continue to watch my diet for fried foods and dairy products. Would there be any other causes? documented in this encounter Plan of Treatment Upcoming Encounters Date Type Department Care Team (Late st Contact Info) Description 09/08/2024 10:10 AM DIRECTOR PARK Office Visit [facility] Family Medicine - [place] [address] [facility] [address] [place] [address] Samantha Sanders MD [address] [place] [phone] documented as of this encounter Visit Diagnoses Diagnosis Mixed hyperlipidemia- Primary documented in this encounter Additional Health Concerns Assessment Noted Time PHQ-9 Depression Total Score: 14 023 1:30 PM DIRECTOR PARK documented as of this encounter Care Teams Senior Software Engineer Analytics Relationship Specialty Start Date End Date Samantha Sanders MD [address] [place] [address] PCP - General FAMILY PRACTICE 03/07/24 documented as of this encounter
--- OUTSIDE RECORDS SUMMARY | 2024-07-24 00:44 | XMS_ITS | Encounter Summary ---
Author Organization [facility] Address [address] [place] [address]. [place], [place] [phone] [place] [address] Care Team Providers Care Optical Engineer Name Role Phone Charley Cabrera MD Primary Care Provider [phone] Encounter Details Date Type Department Care Team (Late st Contact Info) Description 02/06/2024 Exploretrip Message Enc [facility] Family & Internal Medicine [address] [address] Gary Parks, DORINA [address] [place] [address] Dr. [place] [phone] [place] Social History Tobacco Use Types Packs/Day Years [...] as of this encounter Progress Notes * Charley Cabrera MD - 02/09/2024 6:07 PM CDT I have not seen patient since may 2023. Was prescribed per adriana, Given controlled substance at this time continue same dose. Can discuss at next apt * Jayne Chan MA - 02/08/2024 8:59 AM CDT Please advise. Patient was seen 01/25/24 documented in this encounter Plan of Treatment Upcoming Encounters Date Type Department Care Team (Late st Contact Info) Description 09/08/2024 10:10 AM CHEESE SUPERVISOR Office Visit [facility] Family Medicine - [place] [address] [facility] [address] [place] [address] Samantha Sanders MD [address] [place] [phone] documented as of this encounter Visit Diagnoses Not on filedocumented in this encounter Additional Health Concerns Assessment Noted Time PHQ-9 Depression Total Score: 14 023 1:30 PM CHEESE SUPERVISOR documented as of this encounter Care Teams Optical Engineer Relationship Specialty [place] [address] [facility]. [address] [place] [address] PCP - General FAMILY PRACTICE 04/21/22 03/03/24 documented as of this encounter
--- OUTSIDE RECORDS SUMMARY | 2024-07-24 00:44 | XMS_ITS | Clinical Summary ---
Author Organization [facility] Address [address] [place] [address]. [place], [place] [address] [place] [id number] Care Team Providers Care External Grinder Name Role Phone Samantha Sanders MD Primary Care Provider + Allergies No known active allergies Medications Multiple Vitamin (MULTIVITAMIN ADULT OR) Take by mouth daily. Active estradiol 1 MG tablet Take 1 tablet (1 mg total) by mouth daily. 12/12/19 22 Active cetirizine (ZYRTEC) 10 MG tabletIndications: Seasonal allergies Take 1 tablet (10 mg total) by mouth daily. 90 tablet 1 11/02/19 24 Active Additional Information Patient not taking.Reported on 06/10/2024 spironolactone (ALDACTONE) 50 MG tablet Take 1 tablet (50 mg total) by mouth daily. 12/19/19 24 Active pravastatin (PRAVACHOL) 40 MG tabletIndications: Mixed hyperlipidemia Take 1 tablet (40 mg total) by mouth nightly at bedtime. 90 tablet 3 03/07/20 24 025 Active lisdexamfetamine (VYVANSE) 30 MG capsuleIndications :Attention deficit hyperactivity disorder (ADHD), combined type Take 1 capsule (30 mg total) by mouth every morning. 30 capsule 07/19/20 24 Active lisdexamfetamine (VYVANSE) 30 MG capsuleIndications :Attention deficit hyperactivity disorder (ADHD), combined type Take 1 capsule (30 mg total) by mouth every morning. 30 capsule 06/21/20 24 024 Discontin ued(Reord er) Active Problems Problem Noted Date Diagnosed Date Lymphedema 03/07/2024 Overview (03/07/2024): Takes spironolactone PRN, typically a couple times a week. Assessment & Plan (03/07/2024 11:14 AM CDT): Will see if she can do without this medication due to monitoring parameters. Discontinue. Tobacco use 03/07/2024 Hx of ulcerative colitis 04/22/2022 Overview (03/07/2024): Hasn't had a flare in years. In remission. Hasn't had a scope in years. Started as proctitis. Diagnosed 1999, hospitalized several times. S/P colonoscopy with polypectomy 04/21/2022 Thyroid cyst 04/21/2022 Abnormal thyroid ultrasound 04/21/2022 Mixed hyperlipidemia 04/21/2022 Overview (03/07/2024): Takes pravastatin 40 mg daily. Assessment & Plan (03/07/2024 11:13 AM CDT): Recommend she adjust her time of taking medication when her sleep cycle switches. Ordered CMP and lipid panel. Class 1 obesity due to exces s calories with serious comorbidity and body mass index (BMI) of 30.0 to 30.9 in adult 02/25/2021 Perimenopausal symptoms 10/22/2020 Major depression 05/10/2018 ADHD 04/15/2018 Overview (03/07/2024): Has been taking Vyvanse. Feels that she needs a higher dose. 30 mg has not been sufficient. Assessment & Plan (06/10/2024 1:42 PM COCKTAIL LOUNGE MANAGER): Chronic, controlled but more symptoms of sleep shift disorder. Will attempt treatment with modafanil. If this does not work well or side effects, will return to vyvanse. Pt believes she would like to try dose 20 mg daily if needed, but will update me on which dose she wants between 20-40 mg daily. Assessment & Plan (03/07/2024 11:14 AM CDT): Not controlled. Trial Vyvanse 40 mg. UDS ordered. Contract signed. Vitamin D deficiency 04/15/2018 Assessment & Plan (03/07/2024 11:13 AM CDT): Repeat vitamin D level. Insomnia 04/15/2018 Overview (03/07/2024): Struggling with sleeplessness. 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 Living with elderly parents. Lays worrying. In the past was taking. Feels like agony . Has tried lorazepam in the past. Possibly tried trazodone in the past. She does take melatonin. Assessment & Plan (03/07/2024 11:12 AM CDT): Encouraged her to continue melatonin to help regulate sleep and wake cycles. Will initiate trazodone 50 mg daily in the meantime. 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) 04/15/2018 10/22/2020 Acne 04/15/2018 03/07/2024 Encounters Date Type Department Care Team Description 07/19/2024 Telephone [facility] [id number] Bubba Adams II, MD Medication Problem 07/15/[address] [place] [address] Samantha Sanders MD Medication 06/10/2024 1:10 PM COCKTAIL LOUNGE MANAGER Office Visit [facility] [address] [place] [address] Samantha Sanders MD Follow Up (Here for med ck for ADHD. She had influenza X2 and felt bad. Also, she is now working diff shifts at work. ) 06/10/[address] [place] [address] Samantha Sanders MD Medication; Update 06/10/2024 Travel 05/25/[address] [place] [address] Samantha Sanders MD Medication 05/09/[address] [place] [address] Samantha Sanders MD Lab Order 05/09/[address] [place] [address] Samantha Sanders MD Medication from Last 3 Months Immunizations Name Administration Dates Next Due Fluzone 6 Months+ Quad (0.5 mL Prefilled Syringe ) 05/23/2021,10/17/2019 MODERNA COVID-19 (12+) MRNA, LNP-S, PF, 100 MCG/ 0.5 ML DOSE 03/18/2021,02/07/2021 Td 07/20/2003,08/31/2000 Td (Generic) 07/20/2003,08/31/2000 Td, Adsorbed, Preservative F ree, Adult Use, Lf Unspecified 07/20/2003,08/31/2000 Tdap (Adacel) 05/23/2021 Tdap (Generic) 08/10/2017 Family History Medical History Relation Comments Heart Father Heart Mother Aneurysm Paternal Grandfather Cancer Paternal Grandfather colon Heart Paternal Grandfather Relation Status Comments Father Alive Mother Alive Paternal Grandfather Social History Tobacco Use Types Packs/Day Years Used Date Smoking Tobacco: Some Days Cigarettes 0.3 15 Passive Smoke Exposure: Past Smokeless Tobacco: Never Tobacco Cessation:Counseling Given: Yes Comments:cut back alot 3 per day. Alcohol Use Standard Drinks/Week Comments Yes 5 (1 standard drink = 0.6 oz pur e alcohol) occ AUDIT-C Answer Date Recorded Frequency of Alcohol Consumption 2-4 times a mon th 08/16/2018 Average Number of Drinks Not on file [...] Sign Reading Time Taken Comments Blood Pressure 110/80 06/10/2024 12:48 PM COCKTAIL LOUNGE MANAGER Pulse 97 06/10/2024 12:48 PM COCKTAIL LOUNGE MANAGER Temperature 37 ??C (98.6 ??F) 06/10/2024 12:48 PM COCKTAIL LOUNGE MANAGER Respiratory Rate 16 06/10/2024 12:48 PM COCKTAIL LOUNGE MANAGER Oxygen Saturation 99% 06/10/2024 12:48 PM COCKTAIL LOUNGE MANAGER Inhaled Oxygen Concentration - - Weight 66 kg (145 lb 6.4 oz) 06/10/2024 12:48 PM COCKTAIL LOUNGE MANAGER Height 162.6 cm (5' 4 ) 06/10/2024 12:48 PM COCKTAIL LOUNGE MANAGER Body Mass Index 24.96 06/10/2024 12:48 PM COCKTAIL LOUNGE MANAGER Plan of Treatment Upcoming Encounters Date Type Department Care Team (Late st Contact Info) Description 09/08/2024 10:10 AM COCKTAIL LOUNGE MANAGER Office Visit [facility] - [place] [address] [place] [address] Samantha Sanders MD [address] [place] [phone] Health Maintenance Due Date Last Done Comments Colorectal Cancer Screening Colonoscopy (10 Years) 1975 Hepatitis B Vaccines (1 of 3 - 19+ 3-dose series) 1994 Mammogram Screening 2015 Annual Physical 05/23/2022 05/23/2021 COVID-19 Vaccine ( season) 2024 03/18/2021, 02/07/2021 Influenza Adult (#1) 2024 05/23/2021, 10/17/19 20 Pneumococcal Vaccine: Pediatrics (0 to 5 Years) and At-Risk Patients (6 to 64 Years) (1 of 2 - PCV) 09/17/2024 Postponed from 1981 (Patient Refused) DTaP, Tdap and Td Vaccines (3 - Td or Tdap) 05/23/2031 05/23/2021, 08/10/2017, 07/20/2003, Additional history exists Hepatitis C 10/04/2053 Postponed from 1993 (Patient Refused) Meningococcal Vaccine Aged Out No bismark maria l eligible based on patient's age to complete this topic RSV Immunizations Under 20 Months Aged Out No longer eligible based on patient's age to complete this topic Insurance R Care Teams External Grinder Relationship Specialty Start Date End Date Samantha Sanders MD [address] [place] [id number] PCP - General FAMILY PRACTICE 03/07/24
--- OUTSIDE RECORDS SUMMARY | 2024-07-24 00:44 | XMS_ITS | Encounter Summary ---
Author Organization [facility] Address [address] [place] [address]. [place], [place] [address] [place] [address] Care Team Providers Care Private Tutors And Teachers Name Role Phone Samantha Sanders MD Primary Care Provider + Reason for Visit * Reason Onset Date Comments Prior Authorization 03/08/2024 Encounter Details Date Type Department Care Team (Late st Contact Info) Description 03/08/2024 Telephone [facility] [address] [facility] [address] [place] [phone] Samantha Sanders MD [address] [facility] [address] [place] [phone] Prior Authorization Social History Tobacco Use Types Packs/Day Years [...] Progress Notes * Gabi Fam MA - 03/08/2024 2:04 PM CDT Patient informed PA approved * Edna Mendoza - 03/08/2024 1:49 PM CDT Karlie called in, she said her insurance needs a prior auth for Vyvanse 40 mg documented in this encounter Plan of Treatment Upcoming Encounters Date Type Department Care Team (Late st Contact Info) Description 09/08/2024 10:10 AM TYPEWRITERS FUNCTIONAL TESTER Office Visit [facility] Family [facility] - [place] [address] [place], [place] [phone] Samantha Sanders MD [address] [place], [place] [phone] documented as of this encounter Visit Diagnoses Not on filedocumented in this encounter Additional Health Concerns Assessment Noted Time PHQ-9 Depression Total Score: 14 023 1:30 PM TYPEWRITERS FUNCTIONAL TESTER documented as of this encounter Care Teams Private Tutors And Teachers Relationship Specialty Start Date End Date Samantha Sanders MD [address] [place], [place] [phone] PCP - General FAMILY PRACTICE 03/07/24 documented as of this encounter
--- OUTSIDE RECORDS SUMMARY | 2024-07-24 00:44 | XMS_ITS | Encounter Summary ---
Author Organization [facility] Address [address] [place] [address]. [place], [place] [phone] [place] [address] Care Team Providers Care Ear Specialist Name Role Phone Charley Cabrera MD Primary Care Provider [phone] Encounter Details Date Type Department Care Team (Latest Contact Info) Description 01/25/2024 Travel Social History Tobacco Use Types Packs/Day [...] st Contact Info) Description 09/08/2024 10:10 AM COMMUNITY RELATIONS REPRESENTATIVE Office Visit [facility] Family [facility] - [place] [address] [place] [phone] Samantha Sanders MD [address] [place], [place] [phone] documented as of this encounter Visit Diagnoses Not on filedocumented in this encounter Additional Health Concerns Assessment Noted Time PHQ-9 Depression Total Score: 14 023 1:30 PM COMMUNITY RELATIONS REPRESENTATIVE documented as of this encounter Care Teams Ear Specialist Relationship Specialty [place] [phone] [address] [place] [address] PCP - General FAMILY PRACTICE 04/21/22 03/03/24 documented as of this encounter
--- OUTSIDE RECORDS SUMMARY | 2024-07-24 00:44 | XMS_ITS | Encounter Summary ---
Author Organization [facility] Address [address] [place] [address]. [place], [place] [address] [place] [phone] Care Team Providers Care Sports Team Manager Name Role Phone Charley Cabrera MD Primary Care Provider [phone] Reason for Visit * Reason Comments Follow Up Establishing care, t jax from Dr. Cabrera. Dental Problem Pt c/o tooth pain, s welling, and abscess. Thyroid Problem Pt states she has a cyst on thyroid that has doubled in size. Would like ultrasound and removal. Sleep Problem Pt states she has re cently started sleep walking. Encounter Details Date Type Department Care Team (Late st Contact Info) Description 12/18/2023 10:00 AM CDT Office Visit [facility] Family & Internal Medicine [address] [phone] Gary Marrero, DORINA [address] [place] [address] Dr. [place]o [place] [phone] Follow Up (Establishing care, transfer from Dr. Cabrera. ); Dental Problem (Pt c/o tooth pain, swelling, and abscess. ); Thyroid Problem (Pt states she has a cyst on thyroid that has doubled in size. Would like ultrasound and removal. ); Sleep Problem (Pt states she has recently started sleep walking. ) Social History Tobacco Use Types Packs/Day Years [...] Sign Reading Time Taken Comments Blood Pressure 127/78 12/18/2023 10:14 AM CDT Pulse 93 12/18/2023 10:14 AM CDT Temperature 37.2 ??C (98.9 ??F) 12/18/2023 1 0:14 AM CDT Respiratory Rate 14 12/18/2023 10:1 4 AM CDT Oxygen Saturation 99% 12/18/2023 10: 14 AM CDT Inhaled Oxygen Concentration - - Weight 69.3 kg (152 lb 12.8 oz) 024 10:14 AM CDT Height 162.6 cm (5' 4 ) 12/18/2023 10:1 4 AM CDT Body Mass Index 26.23 12/18/2023 10:14 AM CDT documented in this encounter Progress Notes * Gary Marrero, REFINERY OPERATOR [employer] - 12/18/2023 10:00 AM CDT Reason for Visit: ADHD, Anxiety, and tooth infection. History of Present Illness: Karlie Ivory is a 48-year-old female patient who is being seen today for 3 month evaluation of ADHD and anxiety. Patient has been taking Adderall 20mg BID immediate release tabs for ADHD andalprazolam 0.25mg taken PRN for anxiety/panic onset. ROS: Review of Systems Constitutional: Negative. HENT: Positive for sinus pressure and sinus pain. #12 tooth infection. Causing maxillary sinus pressure/pain Eyes: Negative. Respiratory: Negative. Cardiovascular: Negative. Gastrointestinal: Negative. Endocrine: Negative. Genitourinary: Negative. Musculoskeletal: Negative. Allergic/Immunologic: Negative. Neurological: Negative. Hematological: Negative. Psychiatric/Behavioral: Negative. Medications: Current Outpatient Medications: ALPRAZolam (XANAX) 0.25 MG tablet, Take one tab by mouth daily as needed for anxiety(panic attack onset)., Disp: 30 tablet, Rfl: 2 amoxicillin-clavulanate (AUGMENTIN) 875-125 MG tablet, Take 1 tablet (875 mg total) by mouth 2 (two) times daily for 10 days., Disp: 20 tablet, Rfl: 0 amphetamine-dextroamphetamine (ADDERALL) 20 MG tablet, Take 1 tablet (20 mg total) by mouth 2 (two)times daily., Disp: 60 tablet, Rfl: 0 cetirizine (ZYRTEC) 10 MG tablet, Take 1 tablet (10 mg total) by mouth daily., Disp: 90 tablet, Rfl: 1 estradiol 1 MG tablet, Take 2 tablets (2 mg total) by mouth daily., Disp: , Rfl: [START ON 12/31/2023] lisdexamfetamine (VYVANSE) 30 MG capsule, Take 1 capsule (30 mg total) by mouth every morning., Disp: 30 capsule, Rfl: 0 methylPREDNISolone, JAYASHREE, (MEDROL DOSEPAK) 4 MG tablet, Take 1 tablet (4 mg total) by mouth daily. 6TABLETS ON DAY ONE, 5 TABLETS DAY TWO, 4 TABLETS DAY THREE, 3 TABLETS DAY FOUR, 2 TABLETS DAY FIVE,AND 1 TABLET DAY SIX, Disp: 1 each, Rfl: 0 Multiple Vitamin (MULTIVITAMIN ADULT OR), Take by mouth daily. , Disp: , Rfl: pravastatin (PRAVACHOL) 40 MG tablet, Take 1 tablet (40 mg total) by mouth nightly at bedtime., Disp: 30 tablet, Rfl: 2 No Known Allergies Past Medical History: Diagnosis Date ADHD (attention deficit hyperactivity disorder) Allergic rhinitis 05/10/2018 Anxiety Bowel obstruction ([facility]) COVID-19 Strep throat Ulcerative (chronic) enterocolitis, other complication ([facility]) Ulcerative colitis ([facility]) 04/15/2018 Ulcerative colitis ([facility]) Past Surgical History: Procedure Laterality Date APPENDECTOMY [...] No partnership data on file Filed Vitals: 12/18/23 1014 BP: 127/78 Pulse: 93 Resp: 14 Temp: 98.9 ??F (37.2 ??C) TempSrc: Temporal SpO2: 99% Weight: 69.3 kg (152 lb 12.8 oz) Height: 1.626 m (5' 4 ) Physical Exam: Physical Exam Constitutional: Appearance: Normal appearance. HENT: Head: Normocephalic. Mouth/Throat: Pharynx: Oropharynx is clear. Comments: Infected #12 tooth. Cardiovascular: Rate and Rhythm: Normal rate and regular rhythm. Pulses: Normal pulses. Heart sounds: Normal heart sounds. Pulmonary: Effort: Pulmonary effort is normal. Abdominal: General: Bowel sounds are normal. Musculoskeletal: General: Normal range of motion. Skin: General: Skin is warm. Capillary Refill: Capillary refill takes less than 2 seconds. Neurological: General: No focal deficit present. Mental Status: She is alert. Psychiatric: Mood and Affect: Mood normal. Diagnoses/Impression: Karlie was seen today for follow up. Patient controlled on Xanax 0.25mg taken as needed for anxiety. Patient having zero issues with medication and anxiety getting out of control. In regards to ADHD.Patient has been having insomnia issues along with tachycardia. Patient would benefit from a switchto Vyvanse 30mg taken daily. Script sent into pharmacy. Prior authorization will be needed. Patient also has a #12 tooth infected. This is a chronic issue. Patient is waiting for her dental insurance to kick in. She will then have tooth extracted at [facility] in [place], [place]. Gum appearsinflamed and swollen today on assessment. Starting patient on Augmentin for infection prophylaxis and Medrol 4mg dose pack for the inflammation. Patient also given Medrol 4mg to knock out the chest congestion patient has had a week. Likely froma viral infection. Diagnoses and all orders for this visit: Attention deficit hyperactivity disorder (ADHD), combined type - lisdexamfetamine (VYVANSE) 30 MG capsule; Take 1 capsule (30 mg total) by mouth every morning. Tooth infection - amoxicillin-clavulanate (AUGMENTIN) 875-125 MG tablet; Take 1 tablet (875 mg total) by mouth 2 (two) times daily for 10 days. - methylPREDNISolone, JAYASHREE, (MEDROL DOSEPAK) 4 MG tablet; Take 1 tablet (4 mg total) by mouth daily.6 TABLETS ON DAY ONE, 5 TABLETS DAY TWO, 4 TABLETS DAY THREE, 3 TABLETS DAY FOUR, 2 TABLETS DAY FIVE, AND 1 TABLET DAY SIX Chest congestion - methylPREDNISolone, JAYASHREE, (MEDROL DOSEPAK) 4 MG tablet; Take 1 tablet (4 mg total) by mouth daily.6 TABLETS ON DAY ONE, 5 TABLETS DAY TWO, 4 TABLETS DAY THREE, 3 TABLETS DAY FOUR, 2 TABLETS DAY FIVE, AND 1 TABLET DAY SIX Generalized anxiety disorder - ALPRAZolam (XANAX) 0.25 MG tablet; Take one tab by mouth daily as needed for anxiety(panic attackonset). Panic disorder - ALPRAZolam (XANAX) 0.25 MG tablet; Take one tab by mouth daily as needed for anxiety(panic attackonset). Recommendations and Plan: Follow up on January 29 for evaluation of effectiveness of Vyvanse 30mg for ADHD. GARY MARRERO NP documented in this encounter Plan of Treatment Upcoming Encounters Date Type Department Care Team (Late st Contact Info) Description 09/08/2024 10:10 AM FIREARMS MODEL MAKER Office Visit [facility] Family Medicine - [place] [address] [place] [phone] Samantha Sanders MD [address] [place], [place] [phone] documented as of this encounter Visit Diagnoses Diagnosis Attention deficit hyperactivity disorder (ADHD), combined type- Primary Tooth infection Acute apical periodontitis of pulpal origin Chest congestion Other symptoms involving respiratory system and chest Generalized anxiety disorder Panic disorder Panic disorder without agoraphobia documented in this encounter Additional Health Concerns Assessment Noted Time PHQ-9 Depression Total Score: 14 06/17/ 023 1:30 PM FIREARMS MODEL MAKER documented as of this encounter Care Teams Sports Team Manager Relationship Specialty Start [place] [phone] [facility] [address] [place] [address] PCP - General FAMILY PRACTICE 04/21/22 03/03/24 documented as of this encounter
--- OUTSIDE RECORDS SUMMARY | 2024-07-24 00:44 | XMS_ITS | Encounter Summary ---
Author Organization [facility] Address [address] [place] [address]. [place], [place] [address] [place] [address] Care Team Providers Care Web Services Professional Name Role Phone Samantha Saravia MD Primary Care Provider + Reason for Visit * Reason Onset Date Comments Medication 06/10/2024 Update 06/10/2024 Encounter Details Date Type Department Care Team (Late st Contact Info) Description 06/10/2024 Telephone [facility] Medical Group Family Medicine [facility] [address] [facility] [address] [place] [address] Samantha Saravia MD [address] [facility] [address] [place] [address] Medication; Update Social History Tobacco Use Types Packs/Day Years [...] of this encounter Progress Notes * Samantha Saravia MD - 06/21/2024 2:05 PM CSTAddended by: SAMANTHA SARAVIA on: 06/21/2024 02:05 PM Modules accepted: Orders ICAL NURSING INTERN * Samantha Saravia MD - 06/21/2024 2:05 PM CST sent ICAL NURSING INTERN * Gabi Fam MA - 06/21/2024 1:48 PM CST I spoke with the patient and she would like to do the 30 mg dose. Shw[place] in [place] ICAL NURSING INTERN * Samantha Saravia MD - 06/21/2024 12:52 PM CSTAddended by: SAMANTHA SARAVIA on: 06/21/2024 12:52 PM Modules accepted: Orders ICAL NURSING INTERN * Samantha Saravia MD - 06/21/2024 12:51 PM CST We talked about dose options. Does she want to return to 20 or 30 mg? I don't think we made a firm plan on the dose. ICAL NURSING INTERN * Edna Mendoza - 06/21/2024 12:49 PM CST Karlie called checking on this. ICAL NURSING INTERN * Edna Mendoza - 06/17/2024 12:37 PM CST Karlie called in, she said she doesn't want to continue the modafinil, she would like to go to the back up plan which she said was the Vyvanse. ICAL NURSING INTERN * Samantha Saravia MD - 06/13/2024 11:53 AM CST Noted. We did have a backup plan. Please ask her to update me on her decision at the end of the course. ICAL NURSING INTERN * Gabi Fam MA - 06/13/2024 11:31 AM CST Per patient she did get 5 pills for $19. She took 1/2 tablet and it caused insomnia, yesterday she took 1/4 and did a little better. It caused increased anxiety. She stated she will finish the 5 pills but this is not a permanent solution for her. ICAL NURSING INTERN * Gabi Fam MA - 06/13/2024 8:31 AM CST I called and lmovm to call office ICAL NURSING INTERN * Samantha Saravia MD - 06/13/2024 7:38 AM CSTAddended by: SAMANTHA SARAVIA on: 06/13/2024 07:38 AM Modules accepted: Orders ICAL NURSING INTERN * Samantha Saravia MD - 06/13/2024 7:38 AM CST [facility]? ICAL NURSING INTERN * Edna Mendoza - 06/10/2024 3:04 PM CST Karlie called in, she said the modafinil was going to be $250 so she didn't get it filled. She wants to know if you could prescribe Vyvanse. After I hung up with her I looked on good rx and it looks like she can get the modafinil for $25.43 at [facility] pharmacy. 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
--- OUTSIDE RECORDS SUMMARY | 2024-07-24 00:44 | XMS_ITS | Encounter Summary ---
Author Organization [facility] Address [address] [place] [address]. [place], [place] [address] [place] [address] Care Team Providers Care Soil Conservationist Name Role Phone Samantha Sanders MD Primary Care Provider + Reason for Visit * Reason Comments Follow Up Here for med ck for ADHD. She had influenza X2 and felt bad. Also, she is now working diff shifts at work. Encounter Details Date Type Department Care Team (Late st Contact Info) Description 06/10/2024 1:10 PM LOGISTICS TECH Office Visit [facility] Medical Group Family Medicine [place] [address] [facility] [address] [place] [phone] Samantha Sanders MD [address] [facility] [address] [place] [phone] Follow Up (Here for med ck for ADHD. She had influenza X2 and felt bad. Also, she is now working diff shifts at work. ) Social History Tobacco Use Types Packs/Day [...] Comments Blood Pressure 110/80 06/10/2024 12:48 PM LOGISTICS TECH Pulse 97 06/10/2024 12:48 PM LOGISTICS TECH Temperature 37 ??C (98.6 ??F) 06/10/2024 12:48 PM LOGISTICS TECH Respiratory Rate 16 06/10/2024 12:48 PM LOGISTICS TECH Oxygen Saturation 99% 06/10/2024 12:48 PM LOGISTICS TECH Inhaled Oxygen Concentration - - Weight 66 kg (145 lb 6.4 oz) 06/10/2024 12:48 PM LOGISTICS TECH Height 162.6 cm (5' 4 ) 06/10/2024 12:48 PM LOGISTICS TECH Body Mass Index 24.96 06/10/2024 12:48 PM LOGISTICS TECH documented in this encounter Progress Notes * Samantha Sanders MD - 06/10/2024 1:42 PM CSTAssociated Problem(s): ADHD Chronic, controlled but more symptoms of sleep shift disorder. Will attempt treatment with modafanil. If this does not work well or side effects, will return to vyvanse. Pt believes she would like totry dose 20 mg daily if needed, but will update me on which dose she wants between 20-40 mg daily. STICS TECH * Samantha Sanders MD - 06/10/2024 1:10 PM CSTSummary: chronic SUBJECTIVE: Karlie Ivory is a 49-year-old year old female who presents for management of chronic conditions. April Influenza B. ER for chest pain. Then had influenza A and ear infection. HSV1 diagnosed. Gained 10 lb but now lost again. Multiple stressors which caused emotional lability. Feeling better now. Not certain about what to do with ADHD medication. Now working days alternating with nights every week. Difficult to adjust sleep. Vyvanse helps with focus and concentration. Possibly tried modafanil years ago but doesn't remember. Wonders about lower dose vyvanse. Problem Adhd Has been taking Vyvanse. Feels that she needs a higher dose. 30 mg has not been sufficient. Review of Systems Per HPI Patient's past [...] colitis Lymphedema Tobacco use Current Outpatient Medications: estradiol 1 MG tablet, Take 1 tablet (1 mg total) by mouth daily., Disp: , Rfl: modafinil (PROVIGIL) 200 MG tablet, Take 1 tablet (200 mg total) by mouth daily. Take one hour prior to work shift, Disp: 90 tablet, Rfl: 0 Multiple Vitamin (MULTIVITAMIN ADULT OR), Take by mouth daily. , Disp: , Rfl: pravastatin (PRAVACHOL) 40 MG tablet, Take 1 tablet (40 mg total) by mouth nightly at bedtime., Disp: 90 tablet, Rfl: 3 spironolactone (ALDACTONE) 50 MG tablet, Take 1 tablet (50 mg total) by mouth daily., Disp: , Rfl: cetirizine (ZYRTEC) 10 MG tablet, Take 1 tablet (10 mg total) by mouth daily. (Patient not taking: Reported on 06/10/2024), Disp: 90 tablet, Rfl: 1 Review of patient's allergies indicates: No Known Allergies Past Surgical History: Procedure Laterality Date APPENDECTOMY APPENDECTOMY BREAST LUMPECTOMY Left HERNIA REPAIR HYSTERECTOMY OBJECTIVE: Filed Vitals: 06/10/24 1248 BP: 110/80 Pulse: 97 Resp: 16 Temp: 98.6 ??F (37 ??C) TempSrc: Temporal SpO2: 99% Weight: 66 kg (145 lb 6.4 oz) Height: 1.626 m (5' 4 ) Physical Exam Constitutional: Appearance: Normal appearance. Cardiovascular: Rate and Rhythm: Normal rate and regular rhythm. Pulses: Normal pulses. Heart sounds: Normal heart sounds. Pulmonary: Effort: Pulmonary effort is normal. No respiratory distress. Breath sounds: Normal breath sounds. No wheezing or rales. Neurological: Mental Status: She is alert. Psychiatric: Mood and Affect: Mood normal. Behavior: Behavior normal. Thought Content: Thought content normal. Judgment: Judgment normal. ASSESSMENT & PLAN: Karlie Ivory is a 49-year-old female presents to discuss with following. Problem List Items Addressed This Visit ADHD Chronic, controlled but more symptoms of sleep shift disorder. Will attempt treatment with modafanil. If this does not work well or side effects, will return to [facility]. Pt believes she would like totry dose 20 mg daily if needed, but will update me on which dose she wants between 20-40 mg daily. Other Visit Diagnoses Sleep disorder, circadian, shift work type - Primary Relevant Medications modafinil (PROVIGIL) 200 MG tablet Lab: [facility] No follow-ups on file. SAMANTHA SANDERS MD [facility] STICS TECH documented in this encounter Plan of Treatment Upcoming Encounters Date Type Department Care Team (Late st Contact Info) Description 09/08/2024 10:10 AM LOGISTICS TECH Office Visit [facility] Medical Group Family Medicine [place] [address] [facility] [address] [place] [address] Samantha Sanders MD [address] [place] [phone] documented as of this encounter Visit Diagnoses Diagnosis Sleep disorder, circadian, shift work type- Primary Circadian rhythm sleep disorder, shift work type Attention deficit hyperactivity disorder (ADHD), combined type documented in this encounter Additional Health Concerns Assessment Noted Time PHQ-9 Depression Total Score: 14 023 1:30 PM LOGISTICS TECH documented as of this encounter Care Teams Soil Conservationist Relationship Specialty Start Date End Date Samantha Sanders MD [address] [place], [place] [address] PCP - General FAMILY PRACTICE 03/07/24 documented as of this encounter
--- OUTSIDE RECORDS SUMMARY | 2024-07-24 00:44 | XMS_ITS | Encounter Summary ---
Author Organization [facility] Address [address] [place] [address]. [place], [place] [address] [place] [address] Care Team Providers Care Straight Cutter Name Role Phone Samantha Sanders MD Primary Care Provider + Encounter Details Date Type Department Care Team (Latest Contact Info) Description 06/10/2024 Travel Social History Tobacco Use Types Packs/Day [...] st Contact Info) Description 09/08/2024 10:10 AM PIPEFITTER HELPER Office Visit [facility] Medical Group Family Medicine - [place] [address] [place] [phone] Samantha Sanders MD [address] [place] [address] documented as of this encounter Visit Diagnoses Not on filedocumented in this encounter Additional Health Concerns Assessment Noted Time PHQ-9 Depression Total Score: 14 023 1:30 PM PIPEFITTER HELPER documented as of this encounter Care Teams Straight Cutter Relationship Specialty Start Date End Date Samantha Sanders MD [address] [place] [address] PCP - General FAMILY PRACTICE 03/07/24 documented as of this encounter
--- OUTSIDE RECORDS SUMMARY | 2024-07-24 00:44 | XMS_ITS | Encounter Summary ---
Author Organization [facility] Address [address] [place] [address]. [place], [place] [address] [place] [address] Care Team Providers Care Plate Sensitizer Name Role Phone Samantha Sanders MD Primary Care Provider + Encounter Details Date Type Department Care Team (Latest Contact Info) Description 03/07/2024 Travel Social History Tobacco Use Types Packs/Day [...] st Contact Info) Description 09/08/2024 10:10 AM DOWEL INSPECTOR Office Visit [facility] Medical Group Family Medicine - [place] [address] [place] [address] Samantha Sanders MD [address] [place], [place] [phone] documented as of this encounter Visit Diagnoses Not on filedocumented in this encounter Additional Health Concerns Assessment Noted Time PHQ-9 Depression Total Score: 14 023 1:30 PM DOWEL INSPECTOR documented as of this encounter Care Teams Plate Sensitizer Relationship Specialty Start Date End Date Samantha Sanders MD [address] [facility] [address] [place] [address] PCP - General FAMILY PRACTICE 03/07/24 documented as of this encounter
--- OUTSIDE RECORDS SUMMARY | 2024-07-24 00:44 | XMS_ITS | Encounter Summary ---
Author Organization [facility] Address [address] [place] [address]. [place], [place] [address] [place], [place] [phone] Care Team Providers Care Clinical Rehab Specialist Name Role Phone Charley Cabrera MD Primary Care Provider [phone] Reason for Visit * Reason Onset Date Comments Prior Authorization 01/07/2024 Encounter Details Date Type Department Care Team (Late st Contact Info) Description 01/07/2024 Telephone [facility] Medical Group Family & Internal Medicine [facility] [address] [place] [phone] [place] [id number] [place] [address]. [address] [place] [address] Prior Authorization Social History Tobacco Use Types [...] as of this encounter Progress Notes * Jayne Chan MA - 01/18/2024 7:05 AM CDT Josué approval PA# [id number] Vyvanse 30 MG Cap 01/16/2024 - 01/15/2025 See media for scanned approval letter from Josué Patient notified and V/U. Thanked me for the information. * Jayne Chan MA - 01/15/2024 5:11 PM CDT PA done on covermymeds OV notes scanned in for PA * Naty Mccullough - 01/15/2024 4:36 PM CDT Pt called to check on the status of the PA, please contact to let her know. * Cari Mariano RN - 01/07/2024 12:15 PM CDT CMM tomlin:BLVHPCVR * Naty Mccullough - 01/07/2024 10:12 AM CDT Pt called as the pharmacy informed her that the Vyvanse 30 mg needs a PA. Please assist in gets this approve. Thanks documented in this encounter Plan of Treatment Upcoming Encounters Date Type Department Care Team (Late st Contact Info) Description 09/08/2024 10:10 AM GOVERNMENT CONTRACTS MANAGER Office Visit [facility] Medical Group Family Medicine - [place] [address] [place] [address], [place] [address] Samantha Sanders MD [address] [place] [address] documented as of this encounter Visit Diagnoses Not on filedocumented in this encounter Additional Health Concerns Assessment Noted Time PHQ-9 Depression Total Score: 14 023 1:30 PM GOVERNMENT CONTRACTS MANAGER documented as of this encounter Care Teams Clinical Rehab Specialist Relationship Specialty [place] [address] [address] [place] [address] PCP - General FAMILY PRACTICE 04/21/22 03/03/24 documented as of this encounter
--- OUTSIDE RECORDS SUMMARY | 2024-07-24 00:45 | XMS_ITS | Encounter Summary ---
Author Organization [facility] Address [address] [place] [address]. [place], [place] [address] [place] [address] Care Team Providers Care Digital Imager Name Role Phone Charley Cabrera MD Primary Care Provider [phone] Encounter Details Date Type Department Care Team (Latest Contact Info) Description 10/05/2023 Travel Social History Tobacco Use Types Packs/Day [...] st Contact Info) Description 09/08/2024 10:10 AM DIGITAL DESIGN ENGINEER Office Visit [facility] Medical Group Family Medicine - [place] [address] [place] [address] [phone] Samantha Sanders MD [address] [place], [place] [phone] documented as of this encounter Visit Diagnoses Not on filedocumented in this encounter Additional Health Concerns Assessment Noted Time PHQ-9 Depression Total Score: 14 023 1:30 PM DIGITAL DESIGN ENGINEER documented as of this encounter Care Teams Digital Imager Relationship Specialty [place] [address] [address] [place] [address] PCP - General FAMILY PRACTICE 04/21/22 03/03/24 documented as of this encounter
--- OUTSIDE RECORDS SUMMARY | 2024-07-24 00:45 | XMS_ITS | Encounter Summary ---
Author Organization [facility] Address [address] [place] [address]. [place], [place] [address] [place] [address] Care Team Providers Care Freelance Photographer Name Role Phone Charley Cabrera MD Primary Care Provider [phone] Encounter Details Date Type Department Care Team (Latest Contact Info) Description 10/23/2022 Travel Social History Tobacco Use Types Packs/Day Years Used Date Smoking Tobacco: Light Smoker Cigarettes Smokeless Tobacco: Never Comments:cut back alot Alcohol Use Standard Drinks/Week Comments Not Currently 0 (1 standard drink = 0.6 oz pur e alcohol) AUDIT-C Answer Date Recorded Frequency of Alcohol Consumption 2-4 times a thu08/16/2018 Average Number of Drinks Not on file 019 Frequency of Binge Drinking Not on file 07/21 PHQ-2 Answer Date Recorded Patient Health Questionnaire-2 Score 0 09/08/2022 Comments No Sex and Gender Information Value Date Recorded Sex Assigned at Not on file Legal Sex Female 4:47 PM CDT Gender Identity Not on file Sexual Orientation Not on file COVID-19 Exposure Response Date Recorded In the last 10 days, have yo u been in contact with someone who was confirmed or suspected to have Coronavirus/COVID-19? No / Unsure 10/23/2022 7:50 AM CDT documented as of this encounter Plan of Treatment Upcoming Encounters Date Type Department Care Team ( st Contact Info) Description 09/08/2024 10:10 AM ROCK CRUSHER Office Visit [facility] Medical Group Family Medicine - [place] [address] [place] [address] Samantha Sanders MD [address] [place] [address] documented as of this encounter Visit Diagnoses Not on filedocumented in this encounter Additional Health Concerns Assessment Noted Time PHQ-9 Depression Total Score: 0 04/21/20 22 2:28 PM CDT documented as of this encounter Care Teams Freelance Photographer Relationship Specialty [place] [address] [address] [place] [address] PCP - General FAMILY PRACTICE 04/21/22 03/03/24 documented as of this encounter
--- OUTSIDE RECORDS SUMMARY | 2024-07-24 00:45 | XMS_ITS | Encounter Summary ---
Author Organization [facility] Address [address] [place] [address]. [place], [place] [address] [place] [address] Care Team Providers Care Engineering Design Manager Name Role Phone Charley Cabrera MD Primary Care Provider [phone] Encounter Details Date Type Department Care Team (Late Contact Info) Description 03/11/2023 3:20 PM CDT Laboratory Only [facility] Family & Internal Medicine [address] [phone] Charley Cabrera MD [address] [place] [address]. [address] [place] [address] Social History Tobacco Use Types Packs/Day Years Used Date Smoking Tobacco: Light Smoker Cigarettes Smokeless Tobacco: Never Comments:cut back alot Alcohol Use Standard Drinks/Week Comments Yes 0 (1 standard drink = 0.6 oz pur e alcohol) occ AUDIT-C Answer Date Recorded Frequency of Alcohol Consumption 2-4 times a thu08/16/2018 Average Number of Drinks Not on file 019 Frequency of Binge Drinking Not on file 07/21 PHQ-2 Answer Date Recorded Patient Health Questionnaire-2 Score 2 03/11/2023 Comments No Sex and Gender Information Value Date Recorded Sex Assigned at Not on file Legal Sex Female 4:47 PM CDT Gender Identity Not on file Sexual Orientation Not on file documented as of this encounter Plan of Treatment Upcoming Encounters Date Type Department Care Team (Late Contact Info) Description 09/08/2024 10:10 AM COUNTER TOP MAKER Office Visit [facility] Family Medicine [facility] [address] [phone] Samantha Sanders MD [address] [place] [address] documented as of this encounter Procedures Procedure Name Priority Date/Time Associated Diagnosis Comments COLLECTION VENOUS BLOOD VENIPUNCTURE Routine 03/11/2023 3:27 PM CDT Generalized weakness Screening for deficiency anemia Other fatigue Thyroid disorder screening Vitamin D deficiency documented in this encounter Visit Diagnoses Diagnosis Generalized weakness- Primary Other malaise and fatigue Screening for deficiency anemia Screening for other and unspecified deficiency anemia Other fatigue Thyroid disorder screening Screening for thyroid disorder Vitamin D deficiency Unspecified vitamin D deficiency documented in this encounter Additional Health Concerns Assessment Noted Time PHQ-9 Depression Total Score: 0 04/21/20 2:28 PM CDT documented as of this encounter Care Teams Engineering Design Manager Relationship Specialty [place] [address] [address] [place] [address] PCP - General FAMILY PRACTICE 04/21/22 03/03/24 documented as of this encounter
--- OUTSIDE RECORDS SUMMARY | 2024-07-24 00:45 | XMS_ITS | Encounter Summary ---
Author Organization [facility] Address [address] [place] [address]. [place], [place] [address] [place] [address] Care Team Providers Care Agriculture Worker Name Role Phone Charley Cabrera MD Primary Care Provider [phone] Samantha Sanders MD Primary Care Provider + Encounter Details Date Type Department Care Team (Late Contact Info) Description 12/02/2022 [place] [employer] Message Enc [facility] Medical [facility] Family & Internal Medicine [address] [address] [email or web address], [facility] Provider concerta Social History Tobacco Use Types Packs/Day Years [...] st Contact Info) Description 09/08/2024 10:10 AM ASPHALT PAVER OPERATOR Office Visit [facility] [address] [facility] [address] [place], [place] [address] Samantha Sanders MD [address] [place] [address] documented as of this encounter Visit Diagnoses Not on filedocumented in this encounter Additional Health Concerns Infection Onset Date Last Indicated Resolved Time COVID-19 Rule Out 05/25/2023 05/25/2023 05/25/2023 10:11 AM ASPHALT PAVER OPERATOR COVID-19 Confirmed 05/25/2023 05/25/2023 12:32 AM ASPHALT PAVER OPERATOR Assessment Noted Time PHQ-9 Depression Total Score: 0 04/21/20 22 2:28 PM CDT documented as of this encounter Care Teams Agriculture Worker Relationship Specialty [place] [address] [facility] [place] [address] PCP - General FAMILY PRACTICE 04/21/22 03/03/24 Samantha Sanders MD [address] [place] [address] PCP - General FAMILY PRACTICE 03/07/24 documented as of this encounter
--- OUTSIDE RECORDS SUMMARY | 2024-07-24 00:45 | XMS_ITS | Encounter Summary ---
Author Organization [facility] Address [address] [place] [address]. [place], [place] [address] [place] [address] Care Team Providers Care Automatic Maintainer Name Role Phone Charley Cabrera MD Primary Care Provider [phone] Reason for Visit * Reason Comments Medication Management Pt states her musc les are feeling tense and shes feeling more flushed in the face and needing something to help relax her more. Encounter Details Date Type Department Care Team (Late st Contact Info) Description 09/08/2022 3:40 PM PROMOTIONAL MARKETING ANALYST Office Visit [facility] Family & Internal Medicine [address] [address] Charley Cabrera MD [address] [place] [address]. [place] [phone] Medication Management (Pt states her muscles are feeling tense and shes feeling more flushed in the face and needing something to help relax her more. ) Social History Tobacco Use Types Packs/Day Years Used Date Smoking Tobacco: Light Smoker Cigarettes Smokeless Tobacco: Never Tobacco Cessation:Ready to Q uit: Not Asked; Counseling Given: No Comments:cut back alot Alcohol Use Standard Drinks/Week [...] suspected to have Coronavirus/COVID-19? No / Unsure 09/08/2022 3:41 PM PROMOTIONAL MARKETING ANALYST documented as of this encounter Last Filed Vital Signs Vital Sign Reading Time Taken Comments Blood Pressure 115/75 09/08/2022 3:48 PM PROMOTIONAL MARKETING ANALYST Pulse 98 09/08/2022 3:48 PM PROMOTIONAL MARKETING ANALYST Temperature 37.3 ??C (99.2 ??F) 09/08/2022 3:48 PM CS T Respiratory Rate 20 09/08/2022 3:48 PM PROMOTIONAL MARKETING ANALYST Oxygen Saturation 98% 09/08/2022 3:48 PM PROMOTIONAL MARKETING ANALYST Inhaled Oxygen Concentration - - Weight 64.9 kg (143 lb) 09/08/2022 3:48 PM PROMOTIONAL MARKETING ANALYST Height 162.6 cm (5' 4 ) 09/08/2022 3:48 PM PROMOTIONAL MARKETING ANALYST Body Mass Index 24.55 09/08/2022 3:48 PM PROMOTIONAL MARKETING ANALYST documented in this encounter Progress Notes * Charley Cabrera MD - 09/08/2022 3:40 PM CST Reason for Visit: Medication Management (Pt states her muscles are feeling tense and shes feeling more flushed in theface and needing something to help relax her more. ) History of Present Illness: HPI Miss Karlie Ivory?is a pleasant 47-year-old female with??past medical history but not limited to anxiety, depression, ADHD on vyvanse- diagnosed per psychiatry, hyperlipidemia, chronic insomnia ,??status postlumpectomy,??hysterectomy secondary to dysmenorrhea,??ulcerative colitis in remission was seen in office today for medication management. ADHD-patient was originally on Vyvanse 70 mg daily. She weaned down slowly. Medication is not covered by her insurance. She is taking ativan per her OBGyn. Ob Bubba Pisano MD also prescribed her Ambein- but was stopped due to side effects. Last refill Jun 2022. Patient mentions today she had hx of lunesta. Lunesta noted in psych notes from 2019. Hx of being on naltrexone for weight loss- PDMP last refill: Kurt Gregg MD in May 2022. Today, Still does not sleep sound. She snores and that wakes her up, denies known sleep . Denies known apneas No other concerns for today. ROS: Review of Systemssee hpi , rest negative Medications: Current Outpatient Medications: ??? azelastine (AZELASTINE) 0.1 % nasal spray, 1 spray by Nasal route 2 (two) times daily. Use in each nostril as directed (Patient taking differently: 1 spray by Nasal route daily. Use in each nostril as directed), Disp: 30 mL, Rfl: 1 ??? buPROPion XL 150 MG 24 hr tablet, Take 1 tablet (150 mg total) by mouth daily., Disp: 30 tablet, Rfl: 1 ??? busPIRone (BUSPAR) 5 MG tablet, Take 1 tablet (5 mg total) by mouth 2 (two) times daily., Disp:60 tablet, Rfl: 2 ??? Erythromycin 2 % Gel, Apply pea-sized amount on the face at affected areas at bedtime for at least 3 weeks, Disp: 60 g, Rfl: 0 ??? estradiol 1 MG tablet, Take 1 mg by mouth daily., Disp: , Rfl: ??? hydrOXYzine (VISTARIL) 25 MG capsule, every 4 (four) hours., Disp: , Rfl: ??? lisdexamfetamine (VYVANSE) 30 MG capsule, Take 1 capsule (30 mg total) by mouth every morning.,Disp: 30 capsule, Rfl: 0 ??? loratadine (CLARITIN) 10 MG tablet, Take 1 tablet (10 mg total) by mouth daily., Disp: 30 tablet, Rfl: 3 ??? Multiple Vitamin (MULTIVITAMIN ADULT OR), Take by mouth daily. , Disp: , Rfl: ??? pravastatin (PRAVACHOL) 40 MG tablet, Take 1 tablet (40 mg total) by mouth nightly at bedtime.,Disp: 30 tablet, Rfl: 2 ??? cyclobenzaprine (FLEXERIL) 5 MG tablet, Take 1 tablet (5 mg total) by mouth nightly as needed for Muscle Spasms. (Patient not taking: Reported on 09/08/2022), Disp: 30 tablet, Rfl: 0 ??? Vitamin D, Cholecalciferol, 25 MCG (1000 UT) Cap, Take 1 tablet by mouth daily. (Patient not taking: Reported on 07/24/2022), Disp: 30 capsule, Rfl: 3 No Known Allergies Past Medical History: Diagnosis Date ??? ADHD (attention deficit hyperactivity disorder) ??? Allergic rhinitis 05/10/2018 ??? Anxiety ??? Bowel obstruction (CMS/HCC) ??? Ulcerative (chronic) enterocolitis, other complication (CMS/HCC) ??? Ulcerative colitis (CMS/HCC) 04/15/2018 ??? Ulcerative colitis (CMS/HCC) Past Surgical History: Procedure Laterality Date ??? APPENDECTOMY ??? APPENDECTOMY ??? BREAST LUMPECTOMY Left ??? HERNIA REPAIR ??? HYSTERECTOMY Social History Socioeconomic History ??? Marital status: Tobacco Use ??? Smoking status: Light Smoker Packs/day: 0.00 Years: 15.00 Pack years: 0.00 Types: Cigarettes ??? Smokeless tobacco: Never ??? Tobacco comments: cut back alot Vaping Use ??? Vaping Use: Never used Substance and Sexual Activity ??? Alcohol use: Not Currently ??? Drug use: No ??? Sexual activity: Not Currently control/protection: Surgical Social History Narrative Live alone with her dog E-Cigarettes Questions Responses E-Cigarette Use Never User E-cigarette/Vaping Substances Questions Responses Nicotine No THC No CBD No Flavoring No E-cigarette/Vaping Devices Questions Responses Disposable No Pre-filled or Refillable Cartridge No Refillable Tank No Pre-filled Pod No Family History Problem Relation Name Age of Onset ??? Heart Mother ??? Heart Father ??? Heart Paternal Grandfather ??? Aneurysm Paternal Grandfather ??? Cancer Paternal Grandfather colon Family Status Relation Name Status ??? Mother Alive ??? Father Alive ??? PGF Physical Exam Constitutional: Appearance: She is obese. HENT: Head: Normocephalic and atraumatic. Right Ear: Tympanic membrane normal. Left Ear: Tympanic membrane normal. Nose: Nose normal. Mouth/Throat: Mucous membranes are moist. Oropharynx is clear. Eyes: Extraocular Movements: Extraocular movements intact. Conjunctiva/sclera: Conjunctivae normal. Pupils: Pupils are equal, round, and reactive to light. Cardiovascular: Rate and Rhythm: Normal rate and regular rhythm. Pulses: Normal pulses. Heart sounds: Normal heart sounds. Pulmonary: Effort: Pulmonary effort is normal. Breath sounds: Normal breath sounds. No wheezing. Abdominal: General: Abdomen is flat. Bowel sounds are normal. There is no distension. Palpations: Abdomen is soft. Tenderness: There is no abdominal tenderness. There is no guarding or rebound. Musculoskeletal: General: Normal range of motion. Cervical back: Normal range of motion. Right lower leg: No edema. Left lower leg: No edema. Skin: General: Skin is warm. Neurological: General: No focal deficit present. Mental Status: She is alert and oriented to person, place, and time. Sensory: No sensory deficit. Motor: No weakness. Psychiatric: Mood and Affect: Mood normal. Behavior: Behavior normal. Judgment: Judgment normal. Filed Vitals: 09/08/22 1548 BP: 115/75 Pulse: 98 Resp: 20 Temp: 99.2 ??F (37.3 ??C) TempSrc: Temporal SpO2: 98% Weight: 64.9 kg (143 lb) Height: 5' 4 (1.626 m) Diagnoses/Impression: 1. Attention deficit hyperactivity disorder (ADHD), combined type lisdexamfetamine (VYVANSE) 30 MG capsule 2. Generalized anxiety disorder busPIRone (BUSPAR) 5 MG tablet 3. Acne erythematosa Erythromycin 2 % Gel Recommendations and Plan: Patient requested started on Klonipin. Hx of seeing psych- Dr. Jose Nevarez. She recently saw him but he is no longer under her insurance. Reviewed 2019- she was advised therapy. Was on vyvanse, Take vyvansee 30 mg am Start scheduled buspar 5 mg BID Discussed Sleep study PRN. errythromycin ointment. She will see ENT x this week. Orders Placed This Encounter ??? DISCONTD: azelastine (ASTELIN) 0.1 % nasal spray ??? DISCONTD: buPROPion XL (WELLBUTRIN XL) 150 MG 24 hr tablet ??? DISCONTD: busPIRone (BUSPAR) 7.5 MG tablet ??? hydrOXYzine (VISTARIL) 25 MG capsule ??? DISCONTD: loratadine (CLARITIN) 10 MG tablet ??? DISCONTD: LORazepam (ATIVAN) 1 MG tablet ??? DISCONTD: naltrexone (DEPADE) 50 MG tablet ??? DISCONTD: zolpidem (AMBIEN) 5 MG tablet ??? busPIRone (BUSPAR) 5 MG tablet ??? lisdexamfetamine (VYVANSE) 30 MG capsule ??? Erythromycin 2 % Gel Reviewed and updated this visit by provider: Charley Cabrera MD Referring Provider: No ref. provider found PCP: Charley Cabrera MD OTIONAL MARKETING ANALYST documented in this encounter Plan of Treatment Upcoming Encounters Date Type Department Care Team (Late st Contact Info) Description 09/08/2024 10:10 AM PROMOTIONAL MARKETING ANALYST Office Visit [facility] Family Medicine - [place] [address] [facility] [address] [place] [address] Samantha Sanders MD [address] [place] [id number] documented as of this encounter Visit Diagnoses Diagnosis Attention deficit hyperactivity disorder (ADHD), combined type- Primary Generalized anxiety disorder Acne erythematosa Rosacea documented in this encounter Additional Health Concerns Assessment Noted Time PHQ-9 Depression Total Score: 0 04/21/20 22 2:28 PM CDT documented as of this encounter Care Teams Automatic Maintainer Relationship Specialty [place] [address] [facility] [place] [place] [phone] PCP - General FAMILY PRACTICE 04/21/22 03/03/24 documented as of this encounter
--- OUTSIDE RECORDS SUMMARY | 2024-07-24 00:45 | XMS_ITS | Encounter Summary ---
Author Organization [facility] Address [address] [place] [address]. [place], [place] [address] [place] [address] Care Team Providers Care Painter And Body Work Name Role Phone Charley Cabrera MD Primary Care Provider [phone] Reason for Visit * Reason Onset Date Comments Medication Problem 09/17/2023 Switching to generic Adderall, due to Vyvanse being unavailable. Encounter Details Date Type Department Care Team (Late st Contact Info) Description 09/17/2023 Telephone [facility] Family & Internal Medicine [address] [address] Gary Parks, DORINA [address] [place] [address] Dr. Torre [place], [place] [id number] Medication Problem (Switching to generic Adderall, due to Vyvanse being unavailable. ) Social History Tobacco Use Types Packs/Day [...] Progress Notes * Gary Parks NP - 09/17/2023 8:19 AM CST Spoke with patient and she can not get Vyvanse due to shortage. And the brand version is too expensive. Switching patient to generic Adderall 30mg immediate release. [facility] [place] [place] ICAL REVIEW SPECIALIST documented in this encounter Plan of Treatment Upcoming Encounters Date Type Department Care Team (Late st Contact Info) Description 09/08/2024 10:10 AM CLINICAL REVIEW SPECIALIST Office Visit [facility] Family Medicine - [place] [address] [facility] [address] [place] [address] Samantha Sanders MD [address] [place] [address] documented as of this encounter Visit Diagnoses Diagnosis Attention deficit hyperactivity disorder (ADHD), combined type- Primary documented in this encounter Additional Health Concerns Assessment Noted Time PHQ-9 Depression Total Score: 14 023 1:30 PM CLINICAL REVIEW SPECIALIST documented as of this encounter Care Teams Painter And Body Work Relationship Specialty [place] [address] [address] [place] [address] PCP - General FAMILY PRACTICE 04/21/22 03/03/24 documented as of this encounter
--- OUTSIDE RECORDS SUMMARY | 2024-07-24 00:45 | XMS_ITS | Encounter Summary ---
Author Organization [facility] Address [address] [place] [address]. [place], [place] [address] [place] [address] Care Team Providers Care Key Account Director Name Role Phone Charley Cabrera MD Primary Care Provider [phone] Samantha Sanders MD Primary Care Provider + Encounter Details Date Type Department Care Team (Late st Contact Info) Description 11/28/2022 Dheere Bolo Message Enc [facility] Medical Group Family & Internal Medicine [address] [address] Charley Cabrera MD [address] [place] [address]. [address] [place] [phone] Concerta Social History Tobacco Use Types Packs/Day Years [...] Progress Notes * Edna Nunez RN - 12/03/2022 9:54 AM CDT Received approval for medication-pharmacy notified * Edna Nunez RN - 12/01/2022 11:12 AM CDT Please advise. documented in this encounter Plan of Treatment Upcoming Encounters Date Type Department Care Team (Late st Contact Info) Description 09/08/2024 10:10 AM MORTGAGE BRANCH MANAGER Office Visit [facility] Family Medicine - [place] [address] [place] [phone] Samantha Sanders MD [address] [place], [place] [phone] documented as of this encounter Visit Diagnoses Diagnosis Attention deficit hyperactivity disorder (ADHD), combined type documented in this encounter Additional Health Concerns Infection Onset Date Last Indicated Resolved Time COVID-19 Rule Out 05/25/2023 05/25/2023 05/25/2023 10:11 AM MORTGAGE BRANCH MANAGER COVID-19 Confirmed 05/25/2023 05/25/2023 12:32 AM MORTGAGE BRANCH MANAGER Assessment Noted Time PHQ-9 Depression Total Score: 0 04/21/20 22 2:28 PM CDT documented as of this encounter Care Teams Key Account Director Relationship Specialty [place] [address] [facility]. [address] [place] [address] PCP - General FAMILY PRACTICE 04/21/22 03/03/24 Samantha Sanders MD [address] [place], [place] [phone] PCP - General FAMILY PRACTICE 03/07/24 documented as of this encounter
--- OUTSIDE RECORDS SUMMARY | 2024-07-24 00:45 | XMS_ITS | Encounter Summary ---
Author Organization [facility] Address [address] [place] [address]. [place], [place] [address] [place] [address] Care Team Providers Care Medical Manager Name Role Phone Elena Cabrera MD Primary Care Provider [phone] Reason for Visit * Reason Onset Date Comments Medication Problem 11/27/2022 Encounter Details Date Type Department Care Team (Late st Contact Info) Description 11/27/2022 Telephone [facility] Medical Group Family & Internal Medicine [facility] [address] [place] [address] [place] [address] [facility]. [address] [place] [address] Medication Problem Social History Tobacco Use Types Packs/Day [...] Notes * Edna Nunez RN - 12/03/2022 9:55 AM CDT Message sent to patient and pharmacy also notified of approval * Alanna Capone RN - 11/28/2022 3:16 PM CDT Left message for patient to return call. Also advised that she may check her my chart message as well. See note from Dr Cabrera * Elena Cabrera MD - 11/28/2022 1:48 PM CDTAddended by: ELENA CABRERA on: 11/28/2022 01:48 PM Modules accepted: Orders * Elena Cabrera MD - 11/28/2022 1:48 PM CDT She could not reach optimal dose for Vyvanse in the past. Stop Adderall given side effects. I have sent her Concerta to start until she sees me next month. * Alanna Capone RN - 11/28/2022 1:09 PM CDT Please advise. * Ninfa Chi LPN - 11/27/2022 1:10 PM CDT Pt called Future appt 01/07/23 Pt wants to come off of Adderall not working and can't sleep gained weight Please advise Please suggestion alternative she would go back on VyVanse or other alternative that is not as muchof a stimulate Pt said she will deal with the cost [phone] documented in this encounter Plan of Treatment Upcoming Encounters Date Type Department Care Team (Sean Contact Info) Description 09/08/2024 10:10 AM PLATE STRAIGHTENER Office Visit [facility] Family Medicine - [place] [address] [facility] [address] [place] [address] Samantha Sanders MD [address] [place] [address] documented as of this encounter Visit Diagnoses Diagnosis Attention deficit hyperactivity disorder (ADHD), combined type documented in this encounter Additional Health Concerns Assessment Noted Time PHQ-9 Depression Total Score: 0 04/21/20 2:28 PM CDT documented as of this encounter Care Teams Medical Manager Relationship Specialty [place] [address] [facility] [place] [address] PCP - General FAMILY PRACTICE 04/21/22 03/03/24 documented as of this encounter
--- OUTSIDE RECORDS SUMMARY | 2024-07-24 00:45 | XMS_ITS | Encounter Summary ---
Author Organization [facility] Address [address] [place] [address]. [place], [place] [address] [place], [place] [id number] Care Team Providers Care Oracle Ascp Consultant Name Role Phone Charley Cabrera MD Primary Care Provider [phone] Encounter Details Date Type Department Care Team (Late st Contact Info) Description 09/26/2022 For Your Imagination Message Enc [facility] Medical Group Family & Internal Medicine [address] [address] Charley Cabrera MD [address] [place] [address]. [address] [place] [address] Miryamyvmarko Social History Tobacco Use Types Packs/Day Years [...] Coronavirus/COVID-19? No / Unsure 09/08/2022 3:41 PM PRODUCT DEVELOPMENT ECOLOGIST documented as of this encounter Progress Notes * Alanna Capone RN - 09/29/2022 9:01 AM CDT Please advise documented in this encounter Plan of Treatment Upcoming Encounters Date Type Department Care Team (Late st Contact Info) Description 09/08/2024 10:10 AM PRODUCT DEVELOPMENT ECOLOGIST Office Visit [facility] Family Medicine - [place] [address] [facility] [address] [place] [address] Samantha Sanders MD [address] [place], [place] [address] documented as of this encounter Visit Diagnoses Diagnosis Attention deficit hyperactivity disorder (ADHD), combined type- Primary documented in this encounter Additional Health Concerns Assessment Noted Time PHQ-9 Depression Total Score: 0 04/21/20 2:28 PM CDT documented as of this encounter Care Teams Oracle Ascp Consultant Relationship Specialty [place] [address] [facility]. [address] [place] [address] PCP - General FAMILY PRACTICE 04/21/22 03/03/24 documented as of this encounter
--- OUTSIDE RECORDS SUMMARY | 2024-07-24 00:45 | XMS_ITS | Encounter Summary ---
Author Organization [facility] Address [address] [place] [address]. [place], [place] [address] [place] [address] Care Team Providers Care Shipping And Receiving Name Role Phone Charley Cabrera MD Primary Care Provider [phone] Encounter Details Date Type Department Care Team (Latest Contact Info) Description 09/08/2022 Travel Social History Tobacco Use Types Packs/Day [...] Coronavirus/COVID-19? No / Unsure 09/08/2022 3:41 PM FINAL CLEANER documented as of this encounter Plan of Treatment Upcoming Encounters Date Type Department Care Team ( Contact Info) Description 09/08/2024 10:10 AM FINAL CLEANER Office Visit [facility] Family Medicine - [place] [address] [place] [address] Samantha Sanders MD [address] [place] [address] documented as of this encounter Visit Diagnoses Not on filedocumented in this encounter Additional Health Concerns Assessment Noted Time PHQ-9 Depression Total Score: 0 04/21/20 22 2:28 PM CDT documented as of this encounter Care Teams Shipping And Receiving Relationship Specialty [place] [address] [address] [place] [address] PCP - General FAMILY PRACTICE 04/21/22 03/03/24 documented as of this encounter
--- OUTSIDE RECORDS SUMMARY | 2024-07-24 00:45 | XMS_ITS | Encounter Summary ---
Author Organization [facility] Address [address] [place] [address]. [place], [place] [address] [place] [address] Care Team Providers Care Telecommunication Systems Designer Name Role Phone Charley Cabrera MD Primary Care Provider [phone] Reason for Visit * Reason Onset Date Comments Results 05/26/2023 Encounter Details Date Type Department Care Team (Late st Contact Info) Description 05/26/2023 Telephone [facility] Medical Group Family & Internal Medicine [facility] [address] [place] [address] [place] [address] [place] [address] Results Social History Tobacco Use Types Packs/Day Years Used Date Smoking Tobacco: Light Smoker Cigarettes Passive Smoke Exposure: Past Smokeless Tobacco: Never [...] as of this encounter Progress Notes * PETER Jones - 05/26/2023 3:21 PM CST This is a late entry for call that came in at approximately 12:45 AM. Patient called the emergency line because she noticed her test results from an emergency room visit on 05 21 23 at [facility] were scanned into her record. Patient states that she has COVID. She is feeling weak and tired. She to the emergency room for chest pain is overall feeling of unwell dizziness and blurred vision. She states that her symptoms have not improved. She is concerned because she was told in the emergency and that she does not have pneumonia. She states when she reads her reports she has a collapsed lung. After lengthy discussion we determined that patient misunderstood atelectasis for a collapsed lung. I did suggest that patient use the emergency room if she is having active chest pain, weakness, and blurred vision. I suggest that she call an ambulance and not drive herself because of the blurred vision and chest pain. She asked if she could just be seen in the office for the symptoms. Told her that these type of symptoms were not something that could be evaluated properly in the office. She would need emergency room evaluation. She understands the need to use the emergency room to rule out fatal causes of her symptoms. P STRIPPER HAND documented in this encounter Plan of Treatment Upcoming Encounters Date Type Department Care Team (Late st Contact Info) Description 09/08/2024 10:10 AM SCRAP STRIPPER HAND Office Visit [facility] Group Family Medicine - [place] [address] [facility] [address] [place] [address] Samantha Sanders MD [address] [place] [address] documented as of this encounter Visit Diagnoses Not on filedocumented in this encounter Additional Health Concerns Infection Onset Date Last Indicated Resolved Time COVID-19 Confirmed 05/25/2023 05/25/2023 12:32 AM SCRAP STRIPPER HAND Assessment Noted Time PHQ-9 Depression Total Score: 0 04/21/20 22 2:28 PM CDT documented as of this encounter Care Teams Telecommunication Systems Designer Relationship Specialty [place] [address] [facility] [place] [address] PCP - General FAMILY PRACTICE 04/21/22 03/03/24 documented as of this encounter
--- OUTSIDE RECORDS SUMMARY | 2024-07-24 00:45 | XMS_ITS | Encounter Summary ---
Author Organization [facility] Address [address] [place] [address]. [place] [id number] Care Team Providers Care Clinical Massage Therapist Name Role Phone Charley Cabrera MD Primary Care Provider [phone] Reason for Visit * Reason Comments Chest Pain Encounter Details Date Type Department Care Team (Late st Contact Info) Description 06/16/2023 12:22 PM COM WRITER - 06/16/2023 4:24 PM [facility] Emergency [facility] [place] [address] Rhea Smith PA-C [address] [address] Chest Pain Discharge Disposition: Home or Self Care (Routine Discharge) Social History Tobacco Use Types Packs/Day Years Used Date Smoking Tobacco: Every Day Cigarettes 0.3 15 Passive Smoke Exposure: Past Smokeless Tobacco: Never Tobacco Cessation:Ready to Q uit: Not Asked; Counseling Given: Not Answered Comments:cut back alot Alcohol Use Standard Drinks/Week Comments Yes 5 (1 standard drink = 0.6 oz pur e alcohol) occ AUDIT-C Answer Date Recorded Frequency of Alcohol Consumption 2-4 times a thu08/16/2018 Average Number of Drinks Not on file 019 Frequency of Binge Drinking Not on file 07/21 PHQ-2 Answer Date Recorded Patient Health Questionnaire-2 Score 3 06/17/2023 Comments No Sex and Gender Information Value Date Recorded Sex Assigned at Not on file Legal Sex Female 4:47 PM CDT Gender Identity Not on file Sexual Orientation Not on file documented as of this encounter Last Filed Vital Signs Vital Sign Reading Time Taken Comments Blood Pressure 131/51 06/16/2023 4:23 PM COM WRITER Pulse 66 06/16/2023 4:23 PM COM WRITER Temperature 37 ??C (98.6 ??F) 06/16/2023 12:23 PM COM WRITER Respiratory Rate 16 06/16/2023 4:23 PM COM WRITER Oxygen Saturation 98% 06/16/2023 4:23 PM COM WRITER Inhaled Oxygen Concentration - - Weight 63.5 kg (140 lb) 06/16/2023 12:23 PM COM WRITER Height 162.6 cm (5' 4 ) 06/16/2023 12:23 PM COM WRITER Body Mass Index 24.03 06/16/2023 12:23 PM COM WRITER documented in this encounter Discharge Instructions * Discharge Instructions* Rhea Smith PA-C - 06/16/2023 4:11 PM COM WRITER Continue any chronic home medications. [id number] pain reliever may be used as desired. Follow-up closely with your primary doctor to discuss anxiety. Follow-up with your primary doctor or the assigned contract technician to discuss chest pressure today. Return to the emergency room with new or worsening symptoms. WRITER * Attachments The following attachments cannot be sent through Care Everywhere. * Chest Pain Discharge Instructions (Swiss) * Anxiety Discharge Instructions, Adult (Swiss) documented in this encounter Medications at Time of Discharge estradiol 1 MG tablet Take 1 tablet (1 mg total) by mouth daily. 12/11/2021 Multiple Vitamin (MULTIVITAMIN ADULT OR) Take by mouth daily. ketoconazole (NIZORAL) 2 % creamIndications:Int ertrigo Apply topically 2 (two) times daily. 30 g 12/19/2022 3 LORazepam (ATIVAN) 1 MG tablet Take 1 tablet (1 mg total) by mouth daily. 3 methylphenidate CR (CONCERTA) 36 MG tabletIndications:At tention deficit hyperactivity disorder (ADHD), combined type Take 1 tablet (36 mg total) by mouth every morning. 30 tablet 06/12/2023 3 phentermine (ADIPEX-P) 37.5 MG tablet Take 1 tablet (37.5 mg total) by mouth daily. 05/11/2023 3 pravastatin (PRAVACHOL) 40 MG tabletIndications:Mi xed hyperlipidemia Take 1 tablet (40 mg total) by mouth nightly at bedtime. 30 tablet 2 05/19/2022 4 documented as of this encounter ED Notes * Ann-Marie Duran RN - 06/16/2023 4:17 PM CST Discharge instructions reviewed with patient. Patient verbalizes understanding, no questions or concerns to note at this time. Patient is encouraged to return to ED with any new or worsening sypmtoms. Pt assessed by Rhea Smith PA-C WRITER * Rhea Smith PA-C - 06/16/2023 2:48 PM CSTSummary: chest pressure [facility] ED NOTE Keeley Lopez 1975 Chief Complaint Chief Complaint Patient presents with Chest Pain History of Present Illness Chest Pain Associated symptoms: no abdominal pain, no back pain, no cough, no dizziness, no dysphagia, no fever, no headache, no nausea, no numbness, no palpitations, no shortness of breath, no vomiting and no weakness 48-year-old white female patient with history of anxiety and hyperlipidemia, with no cardiac history and no history of hypertension or diabetes or blood clot, who is a cigarette smoker, and denies family history of premature CAD, presents ambulatory to the emergency room through triage from work after having to leave work for complaints of midsternal chest heaviness and feeling shaky while at work. States that symptoms started mildly at 5:00 this morning when she woke up. States that they got worse at work. She denies chest pain, radiating chest pain, nausea, vomiting, shortness of breath, wheezing, painful breathing, hemoptysis, syncope, extremity pain or edema. No history of blood clot. She does not take hormones. No medication for symptoms prior to arrival. She states it feels like anxiety . Contacted PCP, who told her to visit the ER for chest pressure and gave her a follow-up appointment for tomorrow. At time of this examination, patient states that she is having no symptoms including no chest pain or chest pressure. Medical History ALLERGIES: Review of patient's allergies indicates: Allergen Reactions Amoxil [Amoxicillin] Rash MEDICATIONS: Prior to Admission medications Medication Sig Start Date End Date Taking? Authorizing Provider estradiol 1 MG tablet Take 2 tablets (2 mg total) by mouth daily. 12/11/21 Doc [facility] ketoconazole (NIZORAL) 2 % cream Apply topically 2 (two) times daily. Patient not taking: Reported on 03/11/2023 12/19/22 Charley Cabrera MD LORazepam (ATIVAN) 1 MG tablet Take 1 tablet (1 mg total) by mouth daily. Default History Genericprovider methylphenidate CR (CONCERTA) 36 MG tablet Take 1 tablet (36 mg total) by mouth every morning. 06/12/23 Charley Cabrera MD Multiple Vitamin (MULTIVITAMIN ADULT OR) Take by mouth daily. Doc [facility] phentermine (ADIPEX-P) 37.5 MG tablet Take 1 tablet (37.5 mg total) by mouth daily. 05/11/23 Default History Genericprovider pravastatin (PRAVACHOL) 40 MG tablet Take 1 tablet (40 mg total) by mouth nightly at bedtime. 05/19/22 Charley Cabrera MD PAST MEDICAL HISTORY: Past Medical History: Diagnosis Date ADHD (attention deficit hyperactivity disorder) Allergic rhinitis 05/10/2018 Anxiety Bowel obstruction (HHS/HCC) (CMS/HCC) COVID-19 Strep throat Ulcerative (chronic) enterocolitis, other complication (HHS/HCC) (CMS/HCC) Ulcerative colitis (CMS/HCC) 04/15/2018 Ulcerative colitis (CMS/HCC) PAST SURGICAL HISTORY: Past Surgical History: Procedure Laterality Date APPENDECTOMY APPENDECTOMY BREAST LUMPECTOMY Left HERNIA REPAIR HYSTERECTOMY FAMILY HISTORY: Family History Problem Relation Name Age of Onset Heart Mother Heart Father Heart Paternal Grandfather Aneurysm Paternal Grandfather Cancer Paternal Grandfather colon SOCIAL HISTORY: Social History Tobacco Use Smoking status: Every Day Packs/day: 0.25 Years: 15.00 Additional pack years: 0.00 Total pack years: 3.75 Types: Cigarettes Passive exposure: Past Smokeless tobacco: Never Tobacco comments: cut back alot Vaping Use Vaping Use: Every day Substances: Nicotine, Flavoring Devices: Disposable, Pre-filled or refillable cartridge Substance Use Topics Alcohol use: Yes Alcohol/week: 5.0 standard drinks of alcohol Types: 3 Glasses of wine per week Comment: occ Drug use: Not Currently Types: Marijuana Comment: rare use Review of Systems Review of Systems Constitutional: Negative for activity change, appetite change, fever and unexpected weight change. HENT: Negative for ear pain, sore throat and trouble swallowing. Eyes: Negative. Respiratory: Positive for chest tightness. Negative for cough and shortness of breath. Cardiovascular: Positive for chest pain. Negative for palpitations and leg swelling. Gastrointestinal: Negative for abdominal distention, abdominal pain, constipation, diarrhea, nauseaand vomiting. Genitourinary: Negative for dysuria, flank pain and hematuria. Musculoskeletal: Negative for arthralgias, back pain, myalgias and neck pain. Skin: Negative for color change, rash and wound. Allergic/Immunologic: Negative for immunocompromised state. Neurological: Negative for dizziness, speech difficulty, weakness, light- headedness, numbness and headaches. Hematological: Negative for adenopathy. Psychiatric/Behavioral: The patient is nervous/anxious. Physical Exam Filed Vitals: 06/16/23 1223 06/16/23 1407 BP: 116/69 112/65 Pulse: 84 76 Resp: 18 18 Temp: 98.6 ??F (37 ??C) TempSrc: Temporal SpO2: 100% 100% Weight: 63.5 kg (140 lb) Height: 1.626 m (5' 4 ) Physical Exam Vitals and nursing note reviewed. Exam conducted with a attorney present. Constitutional: General: She is not in acute distress. Appearance: Normal appearance. She is well-developed and normal weight. She is not ill-appearing, toxic-appearing or diaphoretic. HENT: Head: Normocephalic and atraumatic. Right Ear: External ear normal. Left Ear: External ear normal. Nose: Nose normal. Mouth/Throat: Mouth: Mucous membranes are moist. Pharynx: Oropharynx is clear. Eyes: Extraocular Movements: Extraocular movements intact. Conjunctiva/sclera: Conjunctivae normal. Pupils: Pupils are equal, round, and reactive to light. Neck: Thyroid: No thyromegaly. Trachea: No tracheal deviation. Cardiovascular: Rate and Rhythm: Normal rate and regular rhythm. Pulses: Normal pulses. Heart sounds: Normal heart sounds. No murmur heard. No friction rub. No gallop. Pulmonary: Effort: Pulmonary effort is normal. No respiratory distress. Breath sounds: Normal breath sounds. No stridor. No wheezing, rhonchi or rales. Abdominal: General: Abdomen is flat. Bowel sounds are normal. There is no distension. Palpations: Abdomen is soft. There is no mass. Tenderness: There is no abdominal tenderness. There is no guarding or rebound. Hernia: No hernia is present. Musculoskeletal: General: No swelling, tenderness, deformity or signs of injury. Normal range of motion. Cervical back: Normal range of motion and neck supple. No rigidity. Right lower leg: No edema. Left lower leg: No edema. Lymphadenopathy: Cervical: No cervical adenopathy. Skin: General: Skin is warm and dry. Capillary Refill: Capillary refill takes less than 2 seconds. Findings: No rash. Neurological: General: No focal deficit present. Mental Status: She is alert and oriented to person, place, and time. Cranial Nerves: No cranial nerve deficit. Sensory: No sensory deficit. Motor: No weakness. Coordination: Coordination normal. Gait: Gait normal. Deep Tendon Reflexes: Reflexes normal. Psychiatric: Mood and Affect: Mood normal. Behavior: Behavior normal. Thought Content: Thought content normal. Judgment: Judgment normal. 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: [id number] : 1975 Requested By: BI MCLAUGHLIN Order Number: [id number] Reading MD: Measurements Intervals Superior Rate: 81 P: 30 NE: 152 QRS: 37 QRSD: 83 T: 25 QT: 378 QTc: 439 Interpretive Statements SINUS RHYTHM Compared to ECG 02/15/2021 17:40:36 Sinus arrhythmia no longer present LABORATORY STUDIES: Results for orders placed or performed during the hospital encounter of 06/16/23 CBC W/DIFF AUTOMATED Result Value Ref Range WBC 10.1 4.5 - 11.0 x10'3/uL RBC 4.64 4.20 - 5.40 x10'6/uL HGB 15.0 12.0 - 16.0 G/DL HCT 44.7 38.0 - 48.0 % MCV 96.3 81.0 - 99.0 FL MCH 32.3 (H) 27.0 - 31.0 PG MCHC 33.6 32.0 - 36.0 G/DL RDW 12.6 11.5 - 14.5 % PLT 454 (H) 130 - 400 x10'3/uL MPV 9.6 9.3 - 12.2 FL DIFFERENTIAL TYPE AUTOMATED DIFFERENTIAL NEUTROPHILS 64.9 % LYMPHOCYTES 28.3 % MONOCYTES 5.6 % EOSINOPHILS 0.3 % BASOPHILS 0.6 % IMMATURE GRANS 0.3 % ABS. NEUTROPHILS TOTAL 6.55 1.80 - 7.70 x10'3/uL ABS. LYMPHOCYTES 2.85 1.00 - 4.80 x10'3/uL ABS. MONOCYTES 0.56 0.24 - 0.86 x10'3/uL ABS. EOSINOPHILS 0.03 (L) 0.04 - 0.36 x10'3/uL ABS. BASOPHILS 0.06 0.01 - 0.08 x10'3/uL ABS. IMMATURE GRANULOCYTES 0.03 0.00 - 0.49 x10'3/uL COMPREHENSIVE METABOLIC PANEL Result Value Ref Range GLUCOSE 91 70 - 99 MG/DL BUN 14 7 - 18 MG/DL CREATININE S/P/B 0.89 0.55 - 1.02 MG/DL SODIUM S/P/B 135 (L) 136 - 145 MMOL/L POTASSIUM S/P/B 3.7 3.5 - 5.1 MMOL/L CHLORIDE S/P/B 104 100 - 108 MMOL/L CO2 26.9 21 - 32 MMOL/L CALCIUM S/P/B 8.8 8.5 - 10.1 MG/DL BILIRUBIN TOTAL S/P/B 0.6 0.2 - 1.2 MG/DL TOTAL PROTEIN S/P/B 8.0 6.4 - 8.2 G/DL ALBUMIN S/P/B 3.9 3.4 - 5.0 G/DL AST 22 15 - 37 U/L ALT 20 14 - 55 U/L ALKALINE PHOSPHATASE S/P/B 85 50 - 136 U/L ANION GAP 4.1 (L) 5 - 15 MMOL/L BUN CREATININE RATIO 15.7 6 - 26 A/G RATIO 1.0 1.0 - 2.0 RATIO GFR ESTIMATE 80 (L) >90 ML/MIN/1.73 M2 TROPONIN, QUANT Result Value Ref Range TROPONIN I HIGH SENSITIVITY 4 <54 ng/L TROPONIN, QUANT Result Value Ref Range TROPONIN I HIGH SENSITIVITY 4 <54 ng/L D-DIMER, QUANTITATIVE Result Value Ref Range D-DIMER 431 0 - 500 ng[FEU]/mL POCT glucose Result Value Ref Range GLUCOSE POC 104 (H) 70 - 99 mg/dL RAPID STREP A Specimen: THROAT Result Value Ref Range Specimen Type THROAT RAPID STREP TEST NEGATIVE NEGATIVE IMAGING STUDIES XR CHEST PORTABLE Final Result by User, [id number] (06/16 7366) Examination: Chest 1 view portable History: Chest pain DATE/TIME: 06/16/2023 2:03 PM Comparison: None Technique: AP upright portable view of the chest was obtained. Findings: Heart size, mediastinal contours and pulmonary vasculature are within normal limits. No pulmonary consolidation, pleural effusion or pneumothorax. No acute osseous abnormality. Impression: No acute findings. Referred By: Interpreted By: Romeo Moss MD, 06/16/2023 2:51 PM ED Course / Medical Decision Making Medical Decision Making 16:10- Patient stable. No acute distress or respiratory distress noted. Unremarkable cardiopulmonary exam. Nontoxic-appearing patient. No concerning vital signs. Unremarkable work-up. Will discharge home with PCP and cardiology follow-up. Forsyth heart score of 2, low risk ACS. D-dimer within normal limits, no further work-up for pulmonary embolus necessary. Unremarkable hematology, chemistry, repeat troponin series, rapid strep test,D-dimer. EKG without acute ischemia or concerning arrhythmia. Chest x-ray negative for acute cardiopulmonary concern per radiology read. Pulse oximeter interpreted at 100% on room air, no hypoxia. Plan discharge home with PCP and cardiology follow-up. Cardiac rhythm strip indicates sinus rhythm, rate 76, no ectopy Amount and/or Complexity of Data Reviewed Labs: ordered. Decision-making details documented in ED Course. Radiology: ordered. Decision-making details documented in ED Course. ECG/medicine tests: ordered and independent interpretation performed. Details: Interpreted at 12:11 as sinus rhythm, rate 81, no ischemia Risk OTC drugs. Prescription drug management. Medications - No data to display Clinical Impression Chest pressure (Primary) Anxiety Current Discharge Medication List Disposition: Discharge Follow-[place]: [place] [id number] [address] [facility] [phone] Call in 1 day Refugio Castro MD [facility]. IRVIN [address] [facility] [address] Call in 1 day RHEA SMITH PA-C 06/16/2023 Rhea Smith PA-C 06/16/23 1612 Cosigned by Steffanie Hidalgo MD at 06/16/2023 4:58 PM COM WRITER WRITER WRITER * PETER Mclaughlin - 06/16/2023 12:19 PM CST [place], [place] EMERGENCY DEPARTMENT ENCOUNTER Medical Screening Examination 06/16/23 12:19 PM Chief Complaint : Chest Pain HPI : Keeley Lopez is a 48-year-old female who presents for evaluation of chest heaviness shakiness since around 5 AM. History of anxiety. Vital Signs: There were no vitals filed for this visit. Physical exam: A brief physical exam was completed to facilitate/expedite patient care. Stinson findings include: No distress noted. Plan: Labs & Imaging was ordered to facilitate patient care. and EKG was ordered to faciliate patient care. PETER Mclaughlin 06/16/23 1219 Cosigned by Jose Ramon Cheung MD at 06/17/2023 6:07 AM COM WRITER WRITER WRITER * Gita Handy RN - 06/16/2023 12:16 PM CST Patient to ED c/o chest pressure since 5 am and shakiness. WRITER documented in this encounter Plan of Treatment Upcoming Encounters Date Type Department Care Team (Late st Contact Info) Description 09/08/2024 10:10 AM COM WRITER Office Visit [facility] Family Medicine - [place] [address] [place] [address] Samantha Sanders MD [address] [place] [address] documented as of this encounter Procedures Procedure Name Priority Date/Time Associated Diagnosis Comments XR CHEST PORTABLE STAT 06/16/2023 2:5 0 PM COM WRITER TROPONIN, QUANT STAT 06/16/2023 2:43 PM COM WRITER RAPID STREP A STAT 06/16/2023 12:33 PM COM WRITER COMPREHENSIVE METABOLIC PANEL STAT 06/16/2023 12:31 PM COM WRITER D-DIMER, QUANTITATIVE STAT 06/16/2023 12:31 PM COM WRITER CBC W/DIFF AUTOMATED STAT 06/16/2023 12:31 PM COM WRITER TROPONIN, QUANT STAT 06/16/2023 12:31 PM COM WRITER POCT GLUCOSE - CARO DOCKED DEVICE Routine 06/16/2023 12:19 PM COM WRITER ECG 12-LEAD Routine 06/16/2023 12:11 PM COM WRITER documented in this encounter Results * XR CHEST PORTABLE (06/16/2023 2:50 PM COM WRITER) Anatomical Region Laterality Modality Chest Radiographic Kaleigh ging 06/16/2023 2:51 PM COM WRITER Impressions 06/16/2023 2:52 PM COM WRITER Impression: No acute findings. Referred By: ?? Interpreted By: Romeo Moss MD, 06/16/2023 2:51 PM Narrative 06/16/2023 2:52 PM COM WRITER Examination: Chest 1 view portable History: Chest pain DATE/TIME: 06/16/2023 2:03 PM Comparison: None Technique: AP upright portable view of the chest was obtained. Findings: Heart size, mediastinal contours and pulmonary vasculature are within normal limits. ??No pulmonary consolidation, pleural effusion or pneumothorax. ??No acute osseous abnormality. Procedure Note Romeo Moss MD - 06/16/2023 Examination: Chest 1 view portable History: Chest pain DATE/TIME: 06/16/2023 2:03 PM Comparison: None Technique: AP upright portable view of the chest was obtained. Findings: Heart size, mediastinal contours and pulmonary vasculature arewithin normal limits. No pulmonary consolidation, pleural effusion orpneumothorax. No acute osseous abnormality. Impression: No acute findings. Referred By: Interpreted By: Romeo Moss MD, 06/16/2023 2:51 PM us [facility] Final Resul t * TROPONIN, QUANT (06/16/2023 2:43 PM COM WRITER) TROPONIN I HIGH SENSITIVITY 4 <54 ng/L 06/16/2023 3:27 PM COM WRITER [facility] Comment: HIGH DOSES OF BIOTIN, TROPONIN-SPECIFIC AUTOANTIBODIES, AND ANTIBODY THERAPY CONTAINING HAMA MAY INTERFERE WITH THIS TEST RESULT. CORRELATION TO CLINICAL HISTORY AND PRESENTATION RECOMMENDED. 06/16/2023 2:43 PM COM WRITER [facility] Final Resul t [facility] [address] [place] [address], [place] [phone] * RAPID STREP A (06/16/2023 12:33 PM COM WRITER) SPECIMEN TYPE THROAT 06/16/2023 12:34 PM COM WRITER [facility] RAPID STREP TEST NEGATIVE NEGATIVE 06/16/2023 1:25 PM COM WRITER [facility] STRUCTURE OF ANTERIOR PORTION OF NECK / Unknown 06/16/2023 12:33 PM COM WRITER Rhea Smith PA-C MICROBIOLOGY - GENERAL [facility]DM[facility]or [facility] Final Result [facility] [address] [place] [address], [place] [phone] * D-DIMER, QUANTITATIVE (06/16/2023 12:31 PM COM WRITER) Pathologist [facility] D-DIMER 431 0 - 500 ng{FEU}/mL 06/16/2023 1:23 PM COM WRITER [facility] Comment: D-Dimer values less than or equal to 500 ng/mL FEU have a negative predictive value of >95% for exclusion of deep vein thrombosis and pulmonary embolism. In patients over 50 (who tend to have higher normal baseline D-Dimer values), recent studies suggest age-adjusted D-Dimer cutoff values (calculated as: age [years] x 10 ng/mL) result in equivalent outcomes and no additional false negative findings. 06/16/2023 12:3 1 PM COM WRITER [facility] Final Resul t [facility] [address] [place] [address], [place] [phone] * TROPONIN, QUANT (06/16/2023 12:31 PM COM WRITER) TROPONIN I HIGH SENSITIVITY 4 <54 ng/L 06/16/2023 1:27 PM COM WRITER [facility] Comment: HIGH DOSES OF BIOTIN, TROPONIN-SPECIFIC AUTOANTIBODIES, AND ANTIBODY THERAPY CONTAINING HAMA MAY INTERFERE WITH THIS TEST RESULT. CORRELATION TO CLINICAL HISTORY AND PRESENTATION RECOMMENDED. 06/16/2023 12:3 1 PM COM WRITER [facility] Final Resul t [facility] [address] [place] [address], [place] [phone] * (ABNORMAL) COMPREHENSIVE METABOLIC PANEL (06/16/2023 12:31 PM COM WRITER) GLUCOSE 91 70 - 99 MG/DL 06/16/2023 1:27 PM [facility] BUN 14 7 - 18 MG/DL 06/16/2023 1:27 PM [facility] CREATININE S/P/B 0.89 0.55 - 1.02 MG/DL 06/16/2023 1:27 PM COM WRITER [facility] SODIUM S/P/B 135(L) 136 - 145 MMOL/L 06/16/2023 1:27 PM [facility] POTASSIUM S/P/B 3.7 3.5 - 5.1 MMOL/L 06/16/2023 1:27 PM [facility] CHLORIDE S/P/B 104 100 - 108 MMOL/L 06/16/2023 1:27 PM COM WRITER [facility] CO2 26.9 21 - 32 MMOL/L 06/16/2023 1:27 PM [facility] CALCIUM S/P/B 8.8 8.5 - 10.1 MG/DL 06/16/2023 1:27 PM [facility] BILIRUBIN TOTAL S/P/B 0.6 0.2 - 1.2 MG/DL 06/16/2023 1:27 PM [facility] Comment: THIS ASSAY IS NOT RECOMMENDED FOR PATIENTS UNDERGOING TREATMENT WITH ELTROMBOPAG DUE TO THE POTENTIAL FOR FALSELY ELEVATED RESULTS. TOTAL PROTEIN S/P/B 8.0 6.4 - 8.2 G/DL 06/16/2023 1:27 PM [facility] ALBUMIN S/P/B 3.9 3.4 - 5.0 G/DL 06/16/2023 1:27 PM COM WRITER [facility] AST 22 15 - 37 U/L 06/16/2023 1:27 PM [facility] ALT 20 14 - 55 U/L 06/16/2023 1:27 PM [facility] ALKALINE PHOSPHATASE S/P/B 85 50 - 136 U/L 06/16/2023 1:27 PM [facility] ANION GAP 4.1(L) 5 - 15 MMOL/L 06/16/2023 1:27 PM [facility] BUN CREATININE RATIO 15.7 6 - 26 06/16/2023 1:27 PM [facility] A/G RATIO 1.0 1.0 - 2.0 RATIO 06/16/2023 1:27 PM [facility] GFR ESTIMATE 80(L) >90 ML/MIN/1.7 3 M2 06/16/2023 1:27 PM [facility] Comment: NOTE: eGFR is not calculated for patients <18 years of age. This is an estimated GFR calculation using the new CKD EPI creatinine equation without race and so does not require a correction factor for race. This estimated GFR should not be used for calculating drug doses. 06/16/2023 12:3 1 PM COM WRITER [facility] Final Resul t [facility] [address] [place] [address], [place] [phone] * (ABNORMAL) CBC W/DIFF AUTOMATED (06/16/2023 12:31 PM COM WRITER) [facility] WBC 10.1 4.5 - 11.0 x10'3/uL 06/16/2023 12:55 PM COM WRITER [facility] RBC 4.64 4.20 - 5.40 x10'6/uL 06/16/2023 12:55 PM COM WRITER [facility] HGB 15.0 12.0 - 16.0 G/DL 06/16/2023 12:55 PM [facility] HCT 44.7 38.0 - 48.0 % 06/16/2023 12:55 PM [facility] MCV 96.3 81.0 - 99.0 FL 06/16/2023 12:55 PM COM WRITER [facility] MCH 32.3(H) 27.0 - 31.0 PG 06/16/2023 12:55 PM COM WRITER [facility] MCHC 33.6 32.0 - 36.0 G/DL 06/16/2023 12:55 PM [facility] RDW 12.6 11.5 - 14.5 % 06/16/2023 12:55 PM [facility] PLT 454(H) 130 - 400 x10'3/uL 06/16/2023 12:55 PM [facility] MPV 9.6 9.3 - 12.2 FL 06/16/2023 12:55 PM [facility] DIFFERENTIAL TYPE AUTOMATED DIFFERENTIAL 06/16/2023 12:55 PM [facility] NEUTROPHILS % 64.9 % 06/16/2023 12:55 PM [facility] LYMPHOCYTES % 28.3 % 06/16/2023 12:55 PM COM WRITER [facility] MONOCYTES % 5.6 % 06/16/2023 12:55 PM COM WRITER [facility] EOSINOPHILS 0.3 % 06/16/2023 12:55 PM COM WRITER [facility] [facility] BASOPHILS 0.6 % 06/16/2023 12:55 PM COM WRITER [facility] IMMATURE GRANS % 0.3 % 06/16/20 12:55 PM COM WRITER [facility] ABS. NEUTROPHILS TOTAL 6.55 1.80 - 7.70 x10'3/uL 06/16/2023 12:55 PM COM WRITER [facility] ABS. LYMPHOCYTES 2.85 1.00 - 4.80 x10'3/uL 06/16/2023 12:55 PM COM WRITER [facility] ABS. MONOCYTES 0.56 0.24 - 0.86 x10'3/uL 06/16/2023 12:55 PM COM WRITER [facility] ABS. EOSINOPHILS 0.03(L) 0.04 - 0.36 x10'3/uL 06/16/2023 12:55 PM COM WRITER [facility] ABS. BASOPHILS 0.06 0.01 - 0.08 x10'3/uL 06/16/2023 12:55 PM COM WRITER [facility] ABS. IMMATURE GRANULOCYTES 0.03 0.00 - 0.49 x10'3/uL 06/16/2023 12:55 PM COM WRITER [facility] 06/16/2023 12:3 1 PM COM WRITER us [facility] Final Resul t [facility] [address] [place] [address], * (ABNORMAL) POCT glucose (06/16/2023 12:19 PM COM WRITER) GLUCOSE POC 104(H) 70 - 99 mg/dL 06/16/2023 12:21 PM COM WRITER [facility] 06/16/2023 12:1 9 PM COM WRITER us Attending Physician Emergency MD POCT ORDERABLES - DEVICE Final Result [facility] [address] [place] [address], * ECG 12 lead (06/16/2023 12:11 PM COM WRITER) 06/16/2023 12:1 [address] [facility] - 06/16/2023 8:35 PM COM WRITER ?[facility] ? [address] [place] ? Test Date: ?2023-06-16 Pat Name: ? KEELEY LOPEZ ?Department: ?? 41 ? Room: ? EMS1 Gender: ? Female ? Financial Planning Advisor: ?? [id number] : ?1975 ? Requested By: BI MCLAUGHLIN Order Number: [id number] ? Reading MD: ?? Danuta Danielle ? Measurements Intervals ?Superior ? Rate: ? 81 ? P: ?30 NE: ? 152 ?QRS: ?37 QRSD: ? 83 ? T: ?25 QT: ? 378 ? QTc: ?439 ? Interpretive Statements SINUS RHYTHM Baseline artifact Compared to ECG 02/15/2021 17:40:36 Sinus arrhythmia no longer present WRITER Procedure Note Danuta Danielle MD - 06/16/2023 [facility] [address] [facility] Test Date: 2023-06-16 Pat Name: KEELEY LOPEZ Department: 41 Room: EMS1 Gender: Female Financial Planning Advisor: [id number] : 1975 Requested By: BI MCLAUGHLIN Order Number: [id number] Reading MD: Danuta Danielle Measurements Intervals Superior Rate: 81 P: 30 NE: 152 QRS: 37 QRSD: 83 T: 25 QT: 378 QTc: 439 Interpretive Statements SINUS RHYTHM Baseline artifact Compared to ECG 02/15/2021 17:40:36 Sinus arrhythmia no longer present WRITER us Bi GREEN ECG ORDERABLES Final Resul t [facility] RAD documented in this encounter Visit Diagnoses Diagnosis Chest pressure- Primary Other chest pain Anxiety Anxiety state, unspecified documented in this encounter Additional Health Concerns Infection Onset Date Last Indicated Resolved Time COVID-19 Confirmed 05/25/2023 05/25/2023 12:32 AM COM WRITER Assessment Noted Time PHQ-9 Depression Total Score: 0 04/21/20 22 2:28 PM CDT documented as of this encounter Care Teams Clinical Massage Therapist Relationship Specialty [place] [address] [place] [address] PCP - General FAMILY PRACTICE 04/21/22 03/03/24 documented as of this encounter
--- OUTSIDE RECORDS SUMMARY | 2024-07-24 00:45 | XMS_ITS | Encounter Summary ---
Author Organization [facility] Address [address] [place] [address]. [place], [place] [address] [place], [place] [id number] Care Team Providers Care Ski Topper Name Role Phone Charley Cabrera MD Primary Care Provider [phone] Reason for Visit * Reason Onset Date Comments Medication Request 10/05/2023 Encounter Details Date Type Department Care Team (Late st Contact Info) Description 10/05/2023 Telephone [facility] Family & Internal Medicine [facility] [address] [place] [phone] [place] Cabrera [place] [address] [place] [address]. [address] [place] [address] Medication Request Social History Tobacco [...] Progress Notes * Charley Cabrera MD - 10/11/2023 2:56 PM CDT Zyretc was sent per SKIVER MACHINE Parag * Edna Nunez RN - 10/05/2023 4:30 PM CDT Please advise were these to be OTC? * Naty Mccullough - 10/05/2023 4:04 PM CDT Pt called as she was seen today and the provider had mentioned that he was going to prescribed an allergy med. Please send to [facility] documented in this encounter Plan of Treatment Upcoming Encounters Date Type Department Care Team (Late st Contact Info) Description 09/08/2024 10:10 AM MANUFACTURING TECHNOLOGIST Office Visit [facility] Family Medicine - [place] [address] [facility] [address] [place] [address] Samantha Sanders MD [address] [place] [address] documented as of this encounter Visit Diagnoses Not on filedocumented in this encounter Additional Health Concerns Assessment Noted Time PHQ-9 Depression Total Score: 14 023 1:30 PM MANUFACTURING TECHNOLOGIST documented as of this encounter Care Teams Ski Topper Relationship Specialty [place] [address] [facility] [address] [place] [address] PCP - General FAMILY PRACTICE 04/21/22 03/03/24 documented as of this encounter
--- OUTSIDE RECORDS SUMMARY | 2024-07-24 00:45 | XMS_ITS | Encounter Summary ---
Author Organization [facility] Address [address] [place] [address]. [place], [place] [address] [place] [address] Care Team Providers Care Parts Back Counter Man Name Role Phone Charley Cabrera MD Primary Care Provider [phone] Encounter Details Date Type Department Care Team (Latest Contact Info) Description 04/18/2023 Scan HEALTH INFO SRVCS Scanned, Doc Med Group Social History Tobacco Use Types Packs/Day Years [...] st Contact Info) Description 09/08/2024 10:10 AM INDUSTRIAL RELATIONS REPRESENTATIVE Office Visit [facility] Family Medicine - [place] [address] [place] [phone] Samantha Sanders MD [address] [place], [place] [address] documented as of this encounter Visit Diagnoses Not on filedocumented in this encounter Additional Health Concerns Infection Onset Date Last Indicated Resolved Time COVID-19 Rule Out 05/25/2023 05/25/2023 05/25/2023 10:11 AM INDUSTRIAL RELATIONS REPRESENTATIVE COVID-19 Confirmed 05/25/2023 05/25/2023 12:32 AM INDUSTRIAL RELATIONS REPRESENTATIVE Assessment Noted Time PHQ-9 Depression Total Score: 0 04/21/20 22 2:28 PM CDT documented as of this encounter Care Teams Parts Back Counter Man Relationship Specialty [place] [address] [address] [place] [address] PCP - General FAMILY PRACTICE 04/21/22 03/03/24 documented as of this encounter
--- OUTSIDE RECORDS SUMMARY | 2024-07-24 00:45 | XMS_ITS | Encounter Summary ---
Author Organization [facility] Address [address] [place] [address]. [place], [place] [address] [place] [address] Care Team Providers Care Outpatient Admitting Clerk Name Role Phone Charley Cabrera MD Primary Care Provider [phone] Reason for Visit * Reason Onset Date Comments Other 09/16/2023 Medication and c anceled appt Encounter Details Date Type Department Care Team (Late st Contact Info) Description 09/16/[address] [facility] Family & Internal Medicine [facility] [id number] [place] [phone] Charley Cabrera MD [address] [place] [address]. [address] [place] [address] Other (Medication and canceled appt ) Social History Tobacco Use Types Packs/Day [...] as of this encounter Progress Notes * Cari Mariano RN - 09/17/2023 8:48 AM CST Noted. PING INSPECTOR * Gary Parks NP - 09/17/2023 8:19 AM CST I have called patient and addressed issue. PING INSPECTOR * Ninfa Chi LPN - 09/16/2023 2:03 PM CST Pt called she has not received her insurance yet so had to cancel her appt with Dr. Cabrera on 09/17/23 When she gets Moses renewed she will call back Also she has not had the Vyvanse med for a while to expensive She said she talked to Charly Pepe about this and was wondering if he could order generic Adderall and she can use a goodRX card Please her know [phone] PING INSPECTOR PING INSPECTOR documented in this encounter Plan of Treatment Upcoming Encounters Date Type Department Care Team (Late st Contact Info) Description 09/08/2024 10:10 AM SHOPPING INSPECTOR Office Visit [facility] Family Medicine - [place] [address] [facility] [address] [place] [address] Samantha Sanders MD [address] [place] [address] documented as of this encounter Visit Diagnoses Not on filedocumented in this encounter Additional Health Concerns Assessment Noted Time PHQ-9 Depression Total Score: 14 023 1:30 PM SHOPPING INSPECTOR documented as of this encounter Care Teams Outpatient Admitting Clerk Relationship Specialty [place] [address] [address] [place] [address] PCP - General FAMILY PRACTICE 04/21/22 03/03/24 documented as of this encounter
--- OUTSIDE RECORDS SUMMARY | 2024-07-24 00:45 | XMS_ITS | Encounter Summary ---
Author Organization [facility] Address [address] [place] [address]. [place], [place] [address] [place] [address] Care Team Providers Care Hourly Caregiver Name Role Phone Charley Cabrera MD Primary Care Provider [phone] Reason for Visit * Reason Comments Medication Management 3 week f/uHad covi d 12/03 and having post covid symptoms Encounter Details Date Type Department Care Team (Late st Contact Info) Description 12/19/2022 9:20 AM CDT Office Visit [facility] Family & Internal Medicine [address] [address] Charley Cabrrea MD [address] [place] [address] [address] Medication Management (3 week f/u/Had covid 12/03 and having post covid symptoms ) Social History Tobacco Use Types Packs/Day Years Used Date Smoking Tobacco: Light Smoker Cigarettes Smokeless Tobacco: Never Tobacco Cessation:Ready to Q uit: Yes; Counseling Given: Yes Comments:cut back alot Alcohol [...] suspected to have Coronavirus/COVID-19? No / Unsure 12/19/2022 9:26 AM CDT documented as of this encounter Last Filed Vital Signs Vital Sign Reading Time Taken Comments Blood Pressure 99/67 12/19/2022 9:31 AM CDT Pulse 87 12/19/2022 9:31 AM CDT Temperature 37.2 ??C (98.9 ??F) 12/19/2022 9:31 AM CD T Respiratory Rate 20 12/19/2022 9:31 AM CDT Oxygen Saturation 99% 12/19/2022 9:31 AM CDT Inhaled Oxygen Concentration - - Weight 67.1 kg (148 lb) 12/19/2022 9:31 AM CDT Height 162.6 cm (5' 4 ) 12/19/2022 9:31 AM CDT Body Mass Index 25.4 12/19/2022 9:31 AM CDT documented in this encounter Progress Notes * Charley Cabrera MD - 12/19/2022 9:20 AM CDT Reason for Visit: Medication Management (3 week f/u/Had covid 12/03 and having post covid symptoms ) History of Present Illness: HPI Miss Karlie Ivory is a pleasant 47-year-old female with past medical history but not limitedto anxiety, depression, ADHD on vyvanse- diagnosed per psychiatry, hyperlipidemia, chronic insomnia, status postlumpectomy, hysterectomy secondary to dysmenorrhea, ulcerative colitis in remission was seen in office today for medication follow-up. COVID- she had in 12/03. Lingering cough siNCE cONCERTA- States this is working well. She can concentrate better. She does get a little tired in afternoon Sleep- GOOD. Wants to check IF SHE CAN TAKE LUNESTA WITH THIS OR not Mood- good appetite LEFT SIDED groin fold- she has an ingrown hair that got INFECTED. SHE HAS HAD IT before. nO OTHER CONCERNs for today. ROS: Review of Systems Constitutional: Negative for activity change, appetite change, chills and fever. HENT: Positive for congestion. Negative for ear discharge, facial swelling, hearing loss, nosebleeds, postnasal drip, rhinorrhea and sinus pressure. Eyes: Negative for visual disturbance. Respiratory: Positive for cough, sputum production and wheezing. Negative for shortness of breath. Cardiovascular: Negative for chest pain, palpitations and leg swelling. Gastrointestinal: Negative for abdominal pain, constipation, diarrhea, heartburn, nausea and vomiting. Endocrine: Negative for polyuria. Genitourinary: Negative for dysuria, hematuria and pelvic pain. Musculoskeletal: Negative for arthralgias. Neurological: Negative for dizziness, syncope and headaches. Psychiatric/Behavioral: Negative for behavioral problems. Medications: Current Outpatient Medications: busPIRone (BUSPAR) 5 MG tablet, Take 1 tablet (5 mg total) by mouth 2 (two) times daily., Disp: 60 tablet, Rfl: 2 cephALEXin (KEFLEX) 500 MG capsule, Take 1 capsule (500 mg total) by mouth 3 (three) times daily., Disp: 21 capsule, Rfl: 0 estradiol 1 MG tablet, Take 1 tablet (1 mg total) by mouth daily., Disp: , Rfl: ketoconazole (NIZORAL) 2 % cream, Apply topically 2 (two) times daily., Disp: 30 g, Rfl: 0 methylphenidate CR (CONCERTA) 18 MG tablet, Take 1 tablet in the morning and second at noON, Disp: 60 tablet, Rfl: 0 methylPREDNISolone, JAYASHREE, (MEDROL DOSEPAK) 4 MG tablet, 6 TABLETS ON DAY ONE, 5 TABLETS DAY TWO, 4 TABLETS DAY THREE, 3 TABLETS DAY FOUR, 2 TABLETS DAY FIVE, AND 1 TABLET DAY SIX, Disp: 1 each, Rfl: 0 Multiple Vitamin (MULTIVITAMIN ADULT OR), Take by mouth daily. , Disp: , Rfl: pravastatin (PRAVACHOL) 40 MG tablet, Take 1 tablet (40 mg total) by mouth nightly at bedtime., Disp: 30 tablet, Rfl: 2 buPROPion XL (WELLBUTRIN XL) 150 MG 24 hr tablet, daily. (Patient not taking: Reported on 12/19/2022), Disp: , Rfl: Review of patient's allergies indicates: No Known Allergies Past Medical History: Diagnosis Date ADHD (attention deficit hyperactivity disorder) Allergic rhinitis 05/10/2018 Anxiety Bowel obstruction (CMS/HCC) Ulcerative (chronic) enterocolitis, other complication (CMS/HCC) Ulcerative colitis (CMS/[facility]) 04/15/2018 Ulcerative colitis ([facility]) Past Surgical History: Procedure Laterality Date APPENDECTOMY APPENDECTOMY BREAST LUMPECTOMY Left HERNIA REPAIR HYSTERECTOMY Social History Socioeconomic History Marital status: Tobacco Use Smoking status: Light Smoker Packs/day: 0.00 Years: 15.00 Pack years: 0.00 Types: Cigarettes Smokeless tobacco: Never Tobacco comments: cut back alot Vaping Use Vaping Use: Never used Substance and Sexual Activity Alcohol use: Not Currently Drug use: No Sexual activity: Not Currently control/protection: Surgical Social [...] Name Status Mother Alive Father Alive PGF Physical Exam Vitals reviewed. HENT: Head: Normocephalic and atraumatic. Eyes: Conjunctiva/sclera: Conjunctivae normal. Cardiovascular: Rate and Rhythm: Normal rate and regular rhythm. Pulmonary: Effort: Pulmonary effort is normal. Breath sounds: Normal breath sounds. No wheezing. Musculoskeletal: Right lower leg: No edema. Left lower leg: No edema. Skin: General: Skin is warm. Comments: Noted erythma left groin fluid. Associated mild purulent drainage. Neurological: General: No focal deficit present. Mental Status: She is alert and oriented to person, place, and time. Psychiatric: Mood and Affect: Mood normal. Behavior: Behavior normal. Judgment: Judgment normal. Filed Vitals: 12/19/22 0931 BP: 99/67 Pulse: 87 Resp: 20 Temp: 98.9 ??F (37.2 ??C) TempSrc: Temporal SpO2: 99% Weight: 67.1 kg (148 lb) Height: 5' 4 (1.626 m) Diagnoses/Impression: 1. Bronchitis methylPREDNISolone, JAYASHREE, (MEDROL DOSEPAK) 4 MG tablet 2. Attention deficit hyperactivity disorder (ADHD), combined type methylphenidate CR (CONCERTA) 18 MG tablet 3. Folliculitis cephALEXin (KEFLEX) 500 MG capsule 4. Intertrigo ketoconazole (NIZORAL) 2 % cream Recommendations and Plan: Patient has tried several medications for ADD-including Vyvanse, Adderall and Concerta. Noticeable difference and improvement in terms of concentration on Concerta. History of seeing psych in the past Continue Concerta as taking. Medrol Dosepak for post-COVID bronchitis. Keflex for folliculitis and ketoconazole for associated intertrigo. Patient advised to use ketoconazole for 7 to 10 days after rash resolves to prevent recurrence Follow-up in 3 months. Earlier if needed. She voiced understanding and agrees with the plan. All questions answered. Orders Placed This Encounter DISCONTD: amphetamine-dextroamphetamine XR (ADDERALL XR) 20 MG 24 hr capsule buPROPion XL (WELLBUTRIN XL) 150 MG 24 hr tablet DISCONTD: hydrOXYzine (VISTARIL) 25 MG capsule DISCONTD: lisdexamfetamine (VYVANSE) 30 MG capsule DISCONTD: lisdexamfetamine (VYVANSE) 60 MG capsule DISCONTD: loratadine (CLARITIN) 10 MG tablet DISCONTD: meclizine (ANTIVERT) 25 MG tablet methylphenidate CR (CONCERTA) 18 MG tablet methylPREDNISolone, JAYASHREE, (MEDROL DOSEPAK) 4 MG tablet ketoconazole (NIZORAL) 2 % cream cephALEXin (KEFLEX) 500 MG capsule Reviewed and updated this visit by provider: Charley Cabrera MD Referring Provider: No ref. provider found PCP: Charley Cabrera MD documented in this encounter Plan of Treatment Upcoming Encounters Date Type Department Care Team (Late st Contact Info) Description 09/08/2024 10:10 AM PRESCHOOL DISABILITY TEACHER Office Visit [facility] Family Medicine - [place] [address] [facility] [address] [place] [address] Samantha Sanders MD [address] [place], [place] [phone] documented as of this encounter Visit Diagnoses Diagnosis Bronchitis- Primary Bronchitis, not specified as acute or chronic Attention deficit hyperactivity disorder (ADHD), combined type Folliculitis Other specified disease of hair and hair follicles Intertrigo Other specified erythematous condition documented in this encounter Additional Health Concerns Assessment Noted Time PHQ-9 Depression Total Score: 0 04/21/20 22 2:28 PM CDT documented as of this encounter Care Teams Hourly Caregiver Relationship Specialty [place] [address] [facility] [place] [address] PCP - General FAMILY PRACTICE 04/21/22 03/03/24 documented as of this encounter
--- OUTSIDE RECORDS SUMMARY | 2024-07-24 00:45 | XMS_ITS | Encounter Summary ---
Author Organization [facility] Address [address] [place] [address]. [place], [place] [address] [place] [address] Care Team Providers Care Agricultural Pilot Name Role Phone Charley Cabrera MD Primary Care Provider [phone] Encounter Details Date Type Department Care Team (Late Contact Info) Description 03/12/2023 Orders Only [facility] Family & Internal Medicine [facility] [address] [place] [address] Edna Nunez RN Social History Tobacco Use Types Packs/Day Years [...] st Contact Info) Description 09/08/2024 10:10 AM RUBBER PRODUCTION MACHINE OPERATOR Office Visit [facility] Family Medicine [facility] [address] [place] [address] Samantha Sanders MD [address] [place] [address] documented as of this encounter Results * (ABNORMAL) CBC W/DIFF AUTOMATED (03/07/2024 11:46 AM CDT) [facility] WBC 7.93 4.00 - 10.80 x10'3/uL 03/07/2024 2:38 PM CDT [facility] RBC 4.46 4.10 - 5.40 x10'6/uL 03/07/2024 2:38 PM CDT [facility] HGB 13.9 12.0 - 16.0 G/DL 03/07/2024 2:38 PM CDT [facility] HCT 41.6 36.0 - 47.0 % 03/07/2024 2:38 PM CDT [facility] MCV 93.3 78.0 - 100.0 FL 03/07/2024 2:38 PM CDT [facility] MCH 31.2(H) 27.0 - 31.0 PG 03/07/2024 2:38 PM CDT [facility] MCHC 33.4 33.0 - 36.0 G/DL 03/07/2024 2:38 PM CDT [facility] RDW 12.5 11.5 - 14.5 % 03/07/2024 2:38 PM CDT [facility] PLT 401(H) 150 - 350 x10'3/uL 03/07/2024 2:38 PM CDT [facility] MPV 10.1 7.4 - 10.4 FL 03/07/2024 2:38 PM CDT [facility] DIFFERENTIAL TYPE AUTOMATED DIFFERENTIAL 03/07/2024 2:38 PM T [facility] NEUTROPHILS % 63.9 % 03/07/2024 2:38 PM CDT [facility] LYMPHOCYTES % 29.0 % 03/07/2024 2:38 PM CDT [facility] MONOCYTES % 5.4 % 03/07/2024 2:38 PM CDT [facility] EOSINOPHILS % 0.9 % 03/07/2024 2:38 PM CDT [facility] BASOPHILS % 0.5 % 03/07/2024 2:38 PM CDT [facility] IMMATURE GRANS % 0.3 % 03/07/2024 2:38 PM CDT [facility] ABS. NEUTROPHILS 5.07 1.60 - 8.30 x10'3/uL 03/07/2024 2:38 PM CDT [facility] ABS. LYMPHOCYTES 2.30 0.80 - 4.70 x10'3/uL 03/07/2024 2:38 PM CDT [facility] ABS. MONOCYTES 0.43 0.00 - 1.50 x10'3/uL 03/07/2024 2:38 PM CDT [facility] ABS. EOSINOPHILS 0.07 0.00 - 0.40 x10'3/uL 03/07/2024 2:38 PM CDT [facility] ABS. BASOPHILS 0.04 0.00 - 0.20 x10'3/uL 03/07/2024 2:38 PM CDT [facility] ABS. IMMATURE GRANULOCYTES 0.02 0.00 - 0.03 x10'3/uL 03/07/2024 2:38 PM CDT [facility] 03/07/2024 11:4 6 AM CDT us Lexie Manzanares PA-C LABORATORY Final Result [facility] [address] [place] [address], [place] [phone] documented in this encounter Visit Diagnoses Diagnosis Elevated WBC count- Primary Leukocytosis, unspecified documented in this encounter Additional Health Concerns Assessment Noted Time PHQ-9 Depression Total Score: 0 04/21/20 2:28 PM CDT documented as of this encounter Care Teams Agricultural Pilot Relationship Specialty [place] [address] [address] [place] [address] PCP - General FAMILY PRACTICE 04/21/22 03/03/24 documented as of this encounter
--- OUTSIDE RECORDS SUMMARY | 2024-07-24 00:45 | XMS_ITS | Encounter Summary ---
Author Organization [facility] Address [address] [place] [address]. [place], [place] [id number] [place], [place] [id number] Care Team Providers Care Hammer Runner Name Role Phone Charley Cabrera MD Primary Care Provider [phone] Reason for Visit * Reason Onset Date Comments FYI 09/01/2022 Encounter Details Date Type Department Care Team (Late st Contact Info) Description 09/01/2022 Telephone [facility] Family & Internal Medicine [facility] [id number] [place] [phone] Char[place] Cabrera [place] [id number] [place] [address]. [address] [place] [address] FYI Social History Tobacco Use Types Packs/Day Years [...] on file 07/21 PHQ-2 Answer Date Recorded PHQ-2 Score - If the patient scores above 3, please move on to questions 3-9 0 04/21/2022 Comments No Sex and Gender Information Value Date Recorded Sex Assigned at Not on file Legal Sex Female 4:47 PM CDT Gender Identity Not on file Sexual Orientation Not on file documented as of this encounter Progress Notes * Charley Cabrera MD - 09/05/2022 1:04 PM CST noted RAT TRAPPER * Alanna Capone RN - 09/01/2022 3:24 PM CST FYI RAT TRAPPER * Judy Koch - 09/01/2022 2:19 PM CST Ptr called wanting to know she is having all her records sent to from [facility]. As they no longer take her INS RAT TRAPPER documented in this encounter Plan of Treatment Upcoming Encounters Date Type Department Care Team (Late st Contact Info) Description 09/08/2024 10:10 AM MUSKRAT TRAPPER Office Visit [facility] Family Medicine - [place] [address] [facility] [address] [place] [address] Samantha Sanders MD [address] [place] [address] documented as of this encounter Visit Diagnoses Not on filedocumented in this encounter Additional Health Concerns Assessment Noted Time PHQ-9 Depression Total Score: 0 04/21/20 22 2:28 PM CDT documented as of this encounter Care Teams Hammer Runner Relationship Specialty [place] [address] [facility] [address] [place] [address] PCP - General FAMILY PRACTICE 04/21/22 03/03/24 documented as of this encounter
--- OUTSIDE RECORDS SUMMARY | 2024-07-24 00:45 | XMS_ITS | Encounter Summary ---
Author Organization [facility] Address [address] [place] [address]. [place], [place] [address] [place] [address] Care Team Providers Care Cotton Jammer Name Role Phone Charley Cabrera MD Primary Care Provider [phone] Encounter Details Date Type Department Care Team (Late st Contact Info) Description 01/02/2023 Orders Only [facility] Family & Internal Medicine [facility] [address] [place] [phone] Charley Cabrera [place] [id number] [place] [address]. [address] [place] [address] Social History Tobacco Use Types [...] st Contact Info) Description 09/08/2024 10:10 AM ACOUSTIC SENSOR OPERATOR Office Visit [facility] Family Medicine - [place] [address] [facility] [address] [place] [address] Samantha Sanders MD [address] [place] [address] documented as of this encounter Visit Diagnoses Diagnosis Attention deficit hyperactivity disorder (ADHD), combined type documented in this encounter Additional Health Concerns Assessment Noted Time PHQ-9 Depression Total Score: 0 04/21/20 22 2:28 PM CDT documented as of this encounter Care Teams Cotton Jammer Relationship Specialty [place] [address] [facility]. [address] [place] [address] PCP - General FAMILY PRACTICE 04/21/22 03/03/24 documented as of this encounter
--- OUTSIDE RECORDS SUMMARY | 2024-07-24 00:45 | XMS_ITS | Encounter Summary ---
Author Organization [facility] Address [address] [place] [address]. [place], [place] [address] [place] [address] Care Team Providers Care Oil Spreader Operator Name Role Phone Charley Cabrera MD Primary Care Provider [phone] Reason for Visit * Reason Onset Date Comments Other 09/16/2023 Encounter Details Date Type Department Care Team (Late st Contact Info) Description 09/16/[address] [facility] Family & Internal Medicine [facility] [address] [place] [phone] [place] [address] [facility] [place] [address] Other Social History Tobacco Use Types Packs/Day Years [...] as of this encounter Progress Notes * Ninfa Chi LPN - 09/16/2023 2:08 PM CST Duplicate OLER documented in this encounter Plan of Treatment Upcoming Encounters Date Type Department Care Team (Late st Contact Info) Description 09/08/2024 10:10 AM TRIPOLER Office Visit [facility] Family Medicine - [place] [address] [facility] [address] [place] [address] Samantha Sanders MD [address] [place], [place] [address] documented as of this encounter Visit Diagnoses Not on filedocumented in this encounter Additional Health Concerns Assessment Noted Time PHQ-9 Depression Total Score: 14 023 1:30 PM TRIPOLER documented as of this encounter Care Teams Oil Spreader Operator Relationship Specialty [place] [address] [facility] [address] [place], [place] [phone] PCP - General FAMILY PRACTICE 04/21/22 03/03/24 documented as of this encounter
--- OUTSIDE RECORDS SUMMARY | 2024-07-24 00:45 | XMS_ITS | Encounter Summary ---
Author Organization [facility] Address [address] [place] [address]. [place], [place] [address] [place] [address] Care Team Providers Care Business And Marketing Teacher Name Role Phone Charley Cabrera MD Primary Care Provider [phone] Encounter Details Date Type Department Care Team (Latest Contact Info) Description 05/25/2023 Travel Social History Tobacco Use Types Packs/Day [...] Contact Info) Description 09/08/2024 10:10 AM MORTGAGE LENDER Office Visit [facility] Family Medicine - [place] [address] [place] [phone] Samantha Sanders MD [address] [place], [place] [phone] documented as of this encounter Visit Diagnoses Not on filedocumented in this encounter Additional Health Concerns Infection Onset Date Last Indicated Resolved Time COVID-19 Rule Out 05/25/2023 05/25/2023 05/25/2023 10:11 AM MORTGAGE LENDER COVID-19 Confirmed 05/25/2023 05/25/2023 12:32 AM MORTGAGE LENDER Assessment Noted Time PHQ-9 Depression Total Score: 0 04/21/20 2:28 PM CDT documented as of this encounter Care Teams Business And Marketing Teacher Relationship Specialty [place] [address] [address] [place] [address] PCP - General FAMILY PRACTICE 04/21/22 03/03/24 documented as of this encounter
--- OUTSIDE RECORDS SUMMARY | 2024-07-24 00:45 | XMS_ITS | Encounter Summary ---
Author Organization [facility] Address [address] [place] [address]. [place], [place] [address] [place] [address] Care Team Providers Care Die Finisher Name Role Phone Charley Cabrera MD Primary Care Provider [phone] Samantha Sanders MD Primary Care Provider + Encounter Details Date Type Department Care Team (Late st Contact Info) Description 09/09/2022 [email or web address] Message Enc [facility] Family & Internal Medicine [address] [phone] Charley Cabrera MD [address] [place] [address]. [address] [place] [phone] Medicine Follow Up Social History Tobacco Use Types Packs/Day Years [...] Coronavirus/COVID-19? No / Unsure 09/08/2022 3:41 PM HOTEL GUEST SERVICE AGENT documented as of this encounter Progress Notes * Edna Nunez RN - 09/10/2022 9:41 AM CST Please advise. L GUEST SERVICE AGENT documented in this encounter Plan of Treatment Upcoming Encounters Date Type Department Care Team (Late st Contact Info) Description 09/08/2024 10:10 AM HOTEL GUEST SERVICE AGENT Office Visit [facility] Family Medicine - [place] [address] [place] [address] Samantha Sanders MD [address] [place] [address] documented as of this encounter Visit Diagnoses Not on filedocumented in this encounter Additional Health Concerns Infection Onset Date Last Indicated Resolved Time COVID-19 Rule Out 05/25/2023 05/25/2023 05/25/2023 10:11 AM HOTEL GUEST SERVICE AGENT COVID-19 Confirmed 05/25/2023 05/25/2023 12:32 AM HOTEL GUEST SERVICE AGENT Assessment Noted Time PHQ-9 Depression Total Score: 0 04/21/20 22 2:28 PM CDT documented as of this encounter Care Teams Die Finisher Relationship Specialty [place] [address] [facility]. [address] [place] [address] PCP - General FAMILY PRACTICE 04/21/22 03/03/24 Samantha Sanders MD [address] [place] [address] PCP - General FAMILY PRACTICE 03/07/24 documented as of this encounter
--- OUTSIDE RECORDS SUMMARY | 2024-07-24 00:45 | XMS_ITS | Encounter Summary ---
Author Organization [facility] Address [address] [place] [address]. [place], [place] [address] [place] [address] Care Team Providers Care Wafer Cleaner Name Role Phone Charley Cabrera MD Primary Care Provider [phone] Reason for Visit * Reason Comments Anxiety Encounter Details Date Type Department Care Team (Late st Contact Info) Description 08/25/2023 3:00 PM ACOUSTICAL TILE PATTERNMAKER Office Visit [facility] Family & Internal Medicine [address] [phone] Gary Marrero, DORINA [address] [facility] [address] [place] [address] Anxiety Social History Tobacco Use Types Packs/Day Years [...] Sign Reading Time Taken Comments Blood Pressure 129/76 08/25/2023 3:19 PM ACOUSTICAL TILE PATTERNMAKER Pulse 92 08/25/2023 3:19 PM ACOUSTICAL TILE PATTERNMAKER Temperature 37 ??C (98.6 ??F) 08/25/2023 3:19 PM ACOUSTICAL TILE PATTERNMAKER Respiratory Rate 16 08/25/2023 3:19 PM ACOUSTICAL TILE PATTERNMAKER Oxygen Saturation 99% 08/25/2023 3:19 PM ACOUSTICAL TILE PATTERNMAKER Inhaled Oxygen Concentration - - Weight 65.8 kg (145 lb) 08/25/2023 3:19 PM ACOUSTICAL TILE PATTERNMAKER Height 162.6 cm (5' 4 ) 08/25/2023 3:19 PM ACOUSTICAL TILE PATTERNMAKER Body Mass Index 24.89 08/25/2023 3:19 PM ACOUSTICAL TILE PATTERNMAKER documented in this encounter Progress Notes * Gary Marrero, SPACE AND MISSILE OPERATIONS SPACELIFT - 08/25/2023 3:00 PM CST Reason for Visit: Anxiety History of Present Illness: Karlie Ivory is a 48-year-old female patient, well nourished, A&Ox4, in no acute distress. Having concerns with her anxiety level. Patient is taking a flight to her job training along with starting her new position, which is creating stress and anxiety for patient. She states she has been having difficulty sleeping, turning off her mind, and constant worry. ROS: Review of Systems Constitutional: Negative. HENT: Negative. Eyes: Negative. Respiratory: Negative. Cardiovascular: Negative. Gastrointestinal: Negative. Endocrine: Negative. Genitourinary: Negative. Musculoskeletal: Negative. Allergic/Immunologic: Negative. Neurological: Negative. Hematological: Negative. Psychiatric/Behavioral: Negative. Medications: Current Outpatient Medications: ALPRAZolam (XANAX) 0.25 MG tablet, Take 1 tablet (0.25 mg total) by mouth daily as needed for Anxiety (Panic attack onset)., Disp: 30 tablet, Rfl: 2 buPROPion XL (WELLBUTRIN XL) 150 MG 24 hr tablet, Take 1 tablet (150 mg total) by mouth daily., Disp: 30 tablet, Rfl: 2 estradiol 1 MG tablet, Take 2 tablets (2 mg total) by mouth daily., Disp: , Rfl: methylphenidate CR (CONCERTA) 36 MG tablet, Take 1 tablet (36 mg total) by mouth every morning., Disp: 30 tablet, Rfl: 0 Multiple Vitamin (MULTIVITAMIN ADULT OR), Take by mouth daily. , Disp: , Rfl: pravastatin (PRAVACHOL) 40 MG tablet, Take 1 tablet (40 mg total) by mouth nightly at bedtime., Disp: 30 tablet, Rfl: 2 Allergies Allergen Reactions Amoxil [Amoxicillin] Rash Past Medical History: Diagnosis Date ADHD (attention deficit hyperactivity disorder) Allergic rhinitis 05/10/2018 Anxiety Bowel obstruction (HHS/HCC) ([facility]) COVID-19 Strep throat Ulcerative (chronic) enterocolitis, other complication (HHS/HCC) ([facility]) Ulcerative colitis ([facility]) 04/15/2018 Ulcerative colitis ([facility]) Past Surgical History: Procedure Laterality Date APPENDECTOMY APPENDECTOMY BREAST LUMPECTOMY Left HERNIA REPAIR HYSTERECTOMY Social History Socioeconomic History Marital status: Tobacco Use Smoking status: Every Day Packs/day: [...] Name Status Mother Alive Father Alive PGF Filed Vitals: 08/25/23 1519 BP: 129/76 Pulse: 92 Resp: 16 Temp: 98.6 ??F (37 ??C) TempSrc: Temporal SpO2: 99% Weight: 65.8 kg (145 lb) Height: 1.626 m (5' 4 ) Physical Exam: Physical Exam HENT: Mouth/Throat: Mouth: Mucous membranes are moist. Pharynx: Oropharynx is clear. Eyes: Pupils: Pupils are equal, round, and reactive to light. Cardiovascular: Rate and Rhythm: Normal rate and regular rhythm. Pulmonary: Effort: Pulmonary effort is normal. Abdominal: General: Bowel sounds are normal. Musculoskeletal: General: Normal range of motion. Cervical back: Normal range of motion. Neurological: General: No focal deficit present. Mental Status: She is alert. Diagnoses/Impression: Karlie was seen today for anxiety. Patients FLOR-7 Score was 17. Patient would benefit from startingmedication to control her anxiety and panic. Diagnoses and all orders for this visit: Generalized anxiety disorder - ALPRAZolam (XANAX) 0.25 MG tablet; Take 1 tablet (0.25 mg total) by mouth daily as needed for Anxiety (Panic attack onset). Panic disorder - ALPRAZolam (XANAX) 0.25 MG tablet; Take 1 tablet (0.25 mg total) by mouth daily as needed for Anxiety (Panic attack onset). Recommendations and Plan: Start alprazolam 0.25mg QD PRN for severe anxiety or panic onset. Consider HRT for pre-menopause climactic symptoms. GARY MARRERO NP STICAL TILE PATTERNMAKER documented in this encounter Plan of Treatment Upcoming Encounters Date Type Department Care Team (Late st Contact Info) Description 09/08/2024 10:10 AM ACOUSTICAL TILE PATTERNMAKER Office Visit [facility] Family Medicine - [place] [address] [facility] [address] [place] [address] Samantha Sanders MD [address] [address] documented as of this encounter Visit Diagnoses Diagnosis Generalized anxiety disorder- Primary Panic disorder Panic disorder without agoraphobia documented in this encounter Additional Health Concerns Assessment Noted Time PHQ-9 Depression Total Score: 14 06/17/ 023 1:30 PM ACOUSTICAL TILE PATTERNMAKER documented as of this encounter Care Teams Wafer Cleaner Relationship Specialty [place] [address] [facility] [place] [address] PCP - General FAMILY PRACTICE 04/21/22 03/03/24 documented as of this encounter
--- OUTSIDE RECORDS SUMMARY | 2024-07-24 00:45 | XMS_ITS | Encounter Summary ---
Author Organization [facility] Address [address] [place] [address]. [place], [place] [address] [place] [address] Care Team Providers Care Property Accountant Name Role Phone Charley Cabrera MD Primary Care Provider [phone] Encounter Details Date Type Department Care Team (Latest Contact Info) Description 03/13/2023 Travel Social History Tobacco Use Types Packs/Day [...] st Contact Info) Description 09/08/2024 10:10 AM EDGER HAND Office Visit [facility] Family Medicine - [place] [address] [place], [place] [phone] Samantha Sanders MD [address] [place], [place] [phone] documented as of this encounter Visit Diagnoses Not on filedocumented in this encounter Additional Health Concerns Assessment Noted Time PHQ-9 Depression Total Score: 0 04/21/20 2:28 PM CDT documented as of this encounter Care Teams Property Accountant Relationship Specialty [place] [address] [address] [place], [place] [phone] PCP - General FAMILY PRACTICE 04/21/22 03/03/24 documented as of this encounter
--- OUTSIDE RECORDS SUMMARY | 2024-07-24 00:45 | XMS_ITS | Encounter Summary ---
Author Organization [facility] Address [address] [place] [address]. [place], [place] [address] [place] [address] Care Team Providers Care Marketing Administrator Name Role Phone Charley Cabrera MD Primary Care Provider Reason for Visit * Reason Comments Flu Like Symptoms Encounter Details Date Type Department Care Team (Latest Contact Info) Description 05/25/2023 9:32 AM MANDATE RETAIL SERVICE MERCHANDISER - 05/25/2023 10:32 AM [facility] Hospital Encounter [facility] Care [address] [place] [address] Avril Chang, EMANI [address] [place] [address] Flu Like Symptoms Discharge Disposition: Home or Self Care (Routine [...] of Alcohol Consumption 2-4 times a mon 08/16/2018 Average Number of Drinks Not on [...] Sign Reading Time Taken Comments Blood Pressure 130/72 05/25/2023 9:34 AM MANDATE RETAIL SERVICE MERCHANDISER Pulse 98 05/25/2023 9:34 AM MANDATE RETAIL SERVICE MERCHANDISER Temperature 36.6 ??C (97.9 ??F) 05/25/2023 9:34 AM CS T Respiratory Rate 20 05/25/2023 9:34 AM MANDATE RETAIL SERVICE MERCHANDISER Oxygen Saturation 98% 05/25/2023 9:34 AM MANDATE RETAIL SERVICE MERCHANDISER Inhaled Oxygen Concentration - - Weight 67 kg (147 lb 11.3 oz) 05/25/2023 9:34 AM MANDATE RETAIL SERVICE MERCHANDISER Height 162.6 cm (5' 4 ) 05/25/2023 9:34 AM MANDATE RETAIL SERVICE MERCHANDISER Body Mass Index 25.35 05/25/2023 9:34 AM MANDATE RETAIL SERVICE MERCHANDISER documented in this encounter Discharge Instructions * Discharge Instructions* EMANI Atkinson - 05/25/2023 10:18 AM MANDATE RETAIL SERVICE MERCHANDISER With acetaminophen or ibuprofen as needed for discomfort. ATE RETAIL SERVICE MERCHANDISER * Attachments The following attachments cannot be sent through Care Everywhere. * COVID-19 Discharge Instructions (Moroccan) documented in this encounter Medications at Time [...] total) by mouth every morning. 30 tablet 05/12/2023 3 phentermine (ADIPEX-P) 37.5 MG tablet Take 1 tablet (37.5 mg total) by mouth daily. 05/11/2023 3 pravastatin (PRAVACHOL) 40 MG tabletIndications:Mi xed hyperlipidemia Take 1 tablet (40 mg total) by mouth nightly at bedtime. 30 tablet 2 05/19/2022 4 documented as of this encounter ED Notes * Avril Chang, DIE CAST OPERATOR - 05/25/2023 10:32 AM CST Chief Complaint Chief Complaint Patient presents with Flu Like Symptoms History of Present Illness 48 y/o female with complain of URI sx, body aches, fever that started yesterday. Has gotten worse today. Pt did have covid vaccine 2 weeks ago. 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 Medical History ALLERGIES: Review of patient's allergies indicates: Allergen Reactions Amoxil [Amoxicillin] Rash MEDICATIONS: Prior to Admission medications Medication Sig Start Date End Date Taking? Authorizing Provider phentermine (ADIPEX-P) 37.5 MG tablet Take 1 tablet (37.5 mg total) by mouth daily. 05/11/23 Yes Default History Genericprovider estradiol 1 MG tablet Take 2 tablets [...] (36 mg total) by mouth every morning. 05/12/23 Charley Cabrera MD Multiple Vitamin (MULTIVITAMIN ADULT OR) Take by mouth daily. Doc [facility] pravastatin (PRAVACHOL) 40 MG tablet Take 1 [...] HISTORY: Social History Tobacco Use Smoking status: Light Smoker Packs/day: 0.00 Years: 15.00 Additional pack years: 0.00 Total pack years: 0.00 Types: Cigarettes Passive exposure: Past Smokeless tobacco: Never Tobacco comments: cut back alot Vaping Use Vaping Use: Every day Substances: Nicotine, Flavoring Devices: Disposable, Pre-filled or refillable cartridge Substance Use Topics Alcohol use: Yes Comment: occ Drug use: Yes Types: Marijuana Comment: rare use Review of Systems Review of Systems Constitutional: Positive for chills, diaphoresis, fatigue and fever. HENT: Positive for congestion and sore throat. Negative for ear discharge, ear pain, mouth sores, postnasal drip, rhinorrhea, sinus pressure, sinus pain and tinnitus. Eyes: Negative for discharge and redness. Respiratory: Positive for cough. Negative for chest tightness, shortness of breath, wheezing and stridor. Cardiovascular: Negative for chest pain. Gastrointestinal: Negative for diarrhea, nausea and vomiting. Endocrine: Negative. Genitourinary: Negative. Musculoskeletal: Negative for arthralgias and myalgias. Skin: Negative for color change and rash. Neurological: Negative. Psychiatric/Behavioral: Negative. Physical Exam Filed Vitals: 05/25/23 0934 BP: 130/72 Pulse: 98 Resp: 20 Temp: 97.9 ??F (36.6 ??C) TempSrc: Temporal SpO2: 98% Weight: 67 kg (147 lb 11.3 oz) Height: 1.626 m (5' 4 ) Physical Exam Vitals and nursing note reviewed. Constitutional: General: She is not in acute distress. Appearance: Normal appearance. She is well-developed and normal weight. She is not diaphoretic. HENT: Head: Normocephalic and atraumatic. Right Ear: Hearing, tympanic membrane and ear canal normal. Left Ear: Hearing, tympanic membrane and ear canal normal. Nose: Mucosal edema and rhinorrhea present. No nasal deformity or septal deviation. Rhinorrhea is clear. Right Sinus: No maxillary sinus tenderness or frontal sinus tenderness. Left Sinus: No maxillary sinus tenderness or frontal sinus tenderness. Mouth/Throat: Lips: [place]. Mouth: Mucous membranes are moist. No oral lesions. Pharynx: Uvula midline. No oropharyngeal exudate, posterior oropharyngeal erythema or uvula swelling. Tonsils: No tonsillar abscesses. Eyes: Conjunctiva/sclera: Conjunctivae normal. Cardiovascular: Rate and Rhythm: Normal rate and regular rhythm. Heart sounds: Normal heart sounds. Pulmonary: Effort: Pulmonary effort is normal. No respiratory distress. Breath sounds: Normal breath sounds. No wheezing or rales. Chest: Chest wall: No tenderness. Musculoskeletal: General: Normal range of motion. Cervical back: Normal range of motion and neck supple. Skin: General: Skin is warm and dry. Capillary Refill: Capillary refill takes less than 2 seconds. Neurological: Mental Status: She is alert and oriented to person, place, and time. Psychiatric: Mood and Affect: Mood normal. Behavior: Behavior normal. Diagnostic Studies / Procedures ELECTROCARDIOGRAMS: No results found for this visit on 05/25/23. LABORATORY STUDIES: Results for orders placed or performed during the hospital encounter of 05/25/23 RAPID STREP A Specimen: THROAT Result Value Ref Range Specimen Type THROAT RAPID STREP TEST NEGATIVE NEGATIVE CORONAVIRUS (COVID 19) Specimen: NASAL Result Value Ref Range CORONAVIRUS SARS COV 2 RNA POSITIVE (AA) NEGATIVE Specimen Type NASAL IMAGING STUDIES No orders to display ED Course / Medical Decision Making Medical Decision Making 48 y/o female with complaint of URI sx, body aches and fever for the past 24 hours. Also with cough. Exam is unremarkable. Clear rhinorrhea. Lungs are clear. Amount and/or Complexity of Data Reviewed Labs: ordered. Decision-making details documented in ED Course. Details: +COVID. Rapid strep negative. Discussion of management or test interpretation with external provider(s): Reviewed the results with patient. Advised to use [id number] medications for her symptoms control. She needs to quarantine for 5 days and mask for 5 additional days. Risk OTC drugs. Prescription drug management. Risk Details: Reviewed plan of care with patient to include diagnoses, Test results, medication andplan of care. Pt verbalized understanding. All questions answered. ED Course as of 06/03/23 1635 Mon May 25, 2023 1006 RAPID STREP TEST: NEGATIVE [MB] 1012 CORONAVIRUS SARS COV 2 RNA(!!): POSITIVE [MB] ED Course User Index [MB] Avril Saldivar EMANI Chang Clinical Impression COVID-19 (Primary) Disposition: Discharge Avril Saldivar EMANI Chang 06/03/23 1635 Cosigned by Claudette Fish MD at 06/06/2023 8:46 PM MANDATE RETAIL SERVICE MERCHANDISER ATE RETAIL SERVICE MERCHANDISER ATE RETAIL SERVICE MERCHANDISER * Claudia Jordan RN - 05/25/2023 9:33 AM CST Pt reports a cough, sore throat, weakness, fatigue, chills, and diarrhea that started late last PM. ATE RETAIL SERVICE MERCHANDISER documented in this encounter Plan of Treatment Upcoming Encounters Date Type Department Care Team (Late st Contact Info) Description 09/08/2024 10:10 AM MANDATE RETAIL SERVICE MERCHANDISER Office Visit [facility] Family Medicine - [place] [address] [place] [id number] Samantha Sanders MD [address] [place] [address] documented as of this encounter Procedures Procedure Name Priority Date/Time Associated Diagnosis Comments CORONAVIRUS (COVID 19) STAT 05/25/2023 9:59 AM MANDATE RETAIL SERVICE MERCHANDISER RAPID STREP A STAT 05/25/2023 9:41 AM MANDATE RETAIL SERVICE MERCHANDISER documented in this encounter Results * (ABNORMAL) CORONAVIRUS (COVID 19) (05/25/2023 9:59 AM MANDATE RETAIL SERVICE MERCHANDISER) CORONAVIRUS SARS COV 2 RNA POSITIVE( AA) NEGATIVE 05/25/2023 10:11 AM MANDATE RETAIL SERVICE MERCHANDISER [facility] CONVENIENT CARE Comment: THE ID NOW COVID-19 2.0 TEST HAS BEEN AUTHORIZED BY THE FDA UNDER EAU FOR USE BY AUTHORIZED LABORATORIES. PERFORMED BY NUCLEIC ACID AMPLIFICATION FOR MOLECULAR QUALITATIVE DETECTION OF SARS-COV-2. Successful Call: [email or web address] called 05/25/2023 10:12 AM to AVRIL CHANG NP ( /AVRIL CHANG NP) by [id number]. SPECIMEN TYPE NASAL 05/25/2023 10:00 AM MANDATE RETAIL SERVICE MERCHANDISER [facility] NASAL STRUCTURE / Unknown 05/25/2023 9:59 AM MANDATE RETAIL SERVICE MERCHANDISER AfsanehJanna Chang DIE CAST OPERATOR MICROBIOLOGY - GENERAL O RDERABLES Final Result Performing Organization Address City/[facility] Co de Phone Number [address] [address], * RAPID STREP A (05/25/2023 9:41 AM MANDATE RETAIL SERVICE MERCHANDISER) SPECIMEN TYPE THROAT 05/25/2023 9:41 AM MANDATE RETAIL SERVICE MERCHANDISER [facility] RAPID STREP TEST NEGATIVE NEGATIVE 05/25/2023 9:58 AM MANDATE RETAIL SERVICE MERCHANDISER [facility] STRUCTURE OF ANTERIOR PORTION OF NECK / Unknown 05/25/2023 9:41 AM MANDATE RETAIL SERVICE MERCHANDISER Afsaneh Brown DIE CAST OPERATOR MICROBIOLOGY - GENERAL O RDERABLES Final Result Performing Organization Address [facility] Co de Phone Number [address] [address], documented in this encounter Visit Diagnoses Diagnosis COVID-19- Primary documented in this encounter Additional Health Concerns Infection Onset Date Last Indicated Resolved Time COVID-19 Rule Out 05/25/2023 05/25/2023 05/25/2023 10:11 AM MANDATE RETAIL SERVICE MERCHANDISER COVID-19 Confirmed 05/25/2023 05/25/2023 12:32 AM MANDATE RETAIL SERVICE MERCHANDISER Assessment Noted Time PHQ-9 Depression Total Score: 0 04/21/20 22 2:28 PM CDT documented as of this encounter Care Teams Marketing Administrator Relationship Specialty [place] [id number] [address] [place] [phone] PCP - General FAMILY PRACTICE 04/21/22 03/03/24 documented as of this encounter
--- OUTSIDE RECORDS SUMMARY | 2024-07-24 00:45 | XMS_ITS | Encounter Summary ---
Author Organization [facility] Address [address] [place] [address]. [place], [place] [address] [place] [address] Care Team Providers Care Brainer Name Role Phone Charley Cabrera MD Primary Care Provider [phone] Reason for Visit * Reason Comments Image (SCAN) Encounter Details Date Type Department Care Team (Latest Contact Info) Description 12/10/2022 Scan [facility] Scanned, Doc Med Group Image (SCAN) Social History Tobacco Use Types Packs/Day Years [...] st Contact Info) Description 09/08/2024 10:10 AM ACCOUNTING PRACTICE MANAGER Office Visit [facility] Family Medicine [facility] [address] [place] [phone] Samantha Sanders MD [address] [place], [place] [phone] documented as of this encounter Procedures Procedure Name Priority Date/Time Associated Diagnosis Comments IMAGE GENERIC 12/10/2022 documented in this encounter Results * IMAGE GENERIC (12/10/2022) Anatomical Region Laterality Modality Other 12/10/2022 us Doc Med Group Scanned SCANNING Final Resu lt documented in this encounter Visit Diagnoses Not on filedocumented in this encounter Additional Health Concerns Assessment Noted Time PHQ-9 Depression Total Score: 0 04/21/20 22 2:28 PM CDT documented as of this encounter Care Teams Brainer Relationship Specialty [place] [address] [facility]. [address] [place] [address] PCP - General FAMILY PRACTICE 04/21/22 03/03/24 documented as of this encounter
--- OUTSIDE RECORDS SUMMARY | 2024-07-24 00:45 | XMS_ITS | Encounter Summary ---
Author Organization [facility] Address [address] [place] [address]. [place], [place] [address] [place] [address] Care Team Providers Care Videotape Sales Representative Name Role Phone Charley Cabrera MD Primary Care Provider [phone] Reason for Visit * Reason Onset Date Comments Refill Request 11/05/2022 Encounter Details Date Type Department Care Team (Late st Contact Info) Description 11/05/2022 Telephone [facility] Family & Internal Medicine [facility] [id number] [place] [phone] Char[place] Cabrera [place] [address] [place] [address]. [address] [place] [address] Refill Request Social History Tobacco Use Types Packs/Day [...] AM CDT documented as of this encounter Progress Notes * Edna Nunez RN - 11/10/2022 3:07 PM CDT MyChart message sent * Charley Cabrera MD - 11/10/2022 3:04 PM CDT Adderall tablets sent. Please let her know * Edna Nunez RN - 11/10/2022 2:58 PM CDT Please advise. * Rosemary Raymond - 11/10/2022 12:46 PM CDT Patient called back and check the status. Also she asked if could have a script for the Adderall tablets just to get her to this coming , when she has an appointment. She also said that she will take the Vyvance. The extended release made her feel like she was running a mile a minute, and also caused a lot of GI upset. This is the 3 rd time patient has called about this issue. She has not had any medication since shecalled on 11/05/22. * Ninfa Chi LPN - 11/07/2022 1:17 PM CDT Pt called to check on status informed pending Pt states she is not going to take the caps anymore Please advise It is causing GI upset And pt is concerned about ulcer colitis Please call back * Shae Moore - 11/05/2022 3:37 PM CDT Karlie calling asking if the adderal XR can be changed to a tablet form, she is not sure if the tablet form comes in XR but said in the past she thinks she did better with the tablet. She said the capsule form seems to be giving her irritable bowls. She will follow up with Dr Cabrera as instructed but asking if she can have a 1 week and half worth of the tablet sent in so she can try it and discuss at her follow up appointment. Pharmacy: [facility] [place] Questions please call Mary Jane: [phone] documented in this encounter Plan of Treatment Upcoming Encounters Date Type Department Care Team (Late st Contact Info) Description 09/08/2024 10:10 AM VENEER SAWYER Office Visit [facility] Family Medicine - [place] [address] [facility] [address] [place] [phone] Samantha Sanders MD [address] [place] [address] documented as of this encounter Visit Diagnoses Diagnosis Attention deficit hyperactivity disorder (ADHD), combined type- Primary documented in this encounter Additional Health Concerns Assessment Noted Time PHQ-9 Depression Total Score: 0 04/21/20 2:28 PM CDT documented as of this encounter Care Teams Videotape Sales Representative Relationship Specialty [place] [address] [facility]. [address] [place] [address] PCP - General FAMILY PRACTICE 04/21/22 03/03/24 documented as of this encounter
--- OUTSIDE RECORDS SUMMARY | 2024-07-24 00:45 | XMS_ITS | Encounter Summary ---
Author Organization [facility] Address [address] [place] [address]. [place], [place] [address] [place] [address] Care Team Providers Care House Piping Inspector Name Role Phone Charley Cabrera MD Primary Care Provider [phone] Reason for Visit * Reason Onset Date Comments Anxiety 06/16/2023 Encounter Details Date Type Department Care Team (Late st Contact Info) Description 06/16/2023 Telephone [facility] Medical Group Family & Internal Medicine [facility] [id number] [place] [phone] [place] Cabrera [place] [id number] [place] [address]. [address] [place] [address] Anxiety Social History Tobacco Use Types Packs/Day [...] Progress Notes * Charley Cabrera MD - 06/16/2023 8:16 PM CST Noted and reviewed patient was seen in ER today ICAL SERVICES ASSISTANT * Cari Mariano RN - 06/16/2023 12:08 PM CST Spoke to Karlie & she states she is at [facility] now. ICAL SERVICES ASSISTANT * Shae Moore - 06/16/2023 11:05 AM CST Mary Jane called states she feels like she is having a medication reaction or anxiety/ panic attack today. She did mention that the last month she does not feel like her medication is working as well. She said today something is different, she is not sure what is going on as she said she feels like she talking in circles or has to think about one foot in front of the next. She states she has a heavy chest / but relating this to anxiety feeling. She said her boss noticed a change in this morning and asked what was going on and she is the one who said she felt like she is having anxiety attack as well. Her boss recommend her to go to the ER. I checked Dr. Cabrera's schedule and she had an opening for tomorrow at 1:00. Informed her to to go to the ER as they would be able to help her, she said I don't want to go as they will think the chest heaviness is from her heart and really thinks it is all anxiety. I told her to let them know she does have a history of this and they will work through everything to get her treatment. Karlie said she has not slept well the last couple nights and is thinking it is a combination to everything as to what she is feeling. Mary Jane mentioned about Dr. Cabrera maybe be able to send in something to calm her down, informed her she would not do this without seeing her. Again, told her the best route would be the ER for her symptoms and come in to see Dr. Cabrera tomorrow. # [phone] Mary Jane ICAL SERVICES ASSISTANT documented in this encounter Plan of Treatment Upcoming Encounters Date Type Department Care Team (Late st Contact Info) Description 09/08/2024 10:10 AM SURGICAL SERVICES ASSISTANT Office Visit [facility] Medical Group Family Medicine - [place] [address] [place] [address] Samantha Sanders MD [address] [place] [address] documented as of this encounter Visit Diagnoses Not on filedocumented in this encounter Additional Health Concerns Infection Onset Date Last Indicated Resolved Time COVID-19 Confirmed 05/25/2023 05/25/2023 12:32 AM SURGICAL SERVICES ASSISTANT Assessment Noted Time PHQ-9 Depression Total Score: 0 04/21/20 22 2:28 PM CDT documented as of this encounter Care Teams House Piping Inspector Relationship Specialty [place] [address] [address] [place] [address] PCP - General FAMILY PRACTICE 04/21/22 03/03/24 documented as of this encounter
--- OUTSIDE RECORDS SUMMARY | 2024-07-24 00:45 | XMS_ITS | Encounter Summary ---
Author Organization [facility] Address [address] [place] [address]. [place], [place] [address] [place] [address] Care Team Providers Care Childcare Center Director Name Role Phone Charley Cabrera MD Primary Care Provider [phone] Encounter Details Date Type Department Care Team (Latest Contact Info) Description 12/19/2022 Travel Social History Tobacco Use Types Packs/Day [...] st Contact Info) Description 09/08/2024 10:10 AM CAP LINING MACHINE OPERATOR Office Visit [facility] Family Medicine - [place] [address] [place] [address] Samantha Sanders MD [address] [place] [address] documented as of this encounter Visit Diagnoses Not on filedocumented in this encounter Additional Health Concerns Assessment Noted Time PHQ-9 Depression Total Score: 0 04/21/20 22 2:28 PM CDT documented as of this encounter Care Teams Childcare Center Director Relationship Specialty Start [place] [address] [address] [place] [address] PCP - General FAMILY PRACTICE 04/21/22 03/03/24 documented as of this encounter
--- OUTSIDE RECORDS SUMMARY | 2024-07-24 00:45 | XMS_ITS | Encounter Summary ---
Author Organization [facility] Address [address] [place] [address]. [place], [place] [address] [place], [place] [id number] Care Team Providers Care Head Pastry Chef Name Role Phone Charley Cabrera MD Primary Care Provider [phone] Reason for Visit * Reason Comments Anxiety Encounter Details Date Type Department Care Team (Late st Contact Info) Description 06/17/2023 1:00 PM ZYGLO INSPECTOR Office Visit [facility] Family & Internal Medicine [address] [address] Charley Cabrera MD [address] [place] [address]. [address] [place] [address] Anxiety Social History Tobacco Use Types [...] Sign Reading Time Taken Comments Blood Pressure 136/80 06/17/2023 1:09 PM ZYGLO INSPECTOR Pulse 85 06/17/2023 1:09 PM ZYGLO INSPECTOR Temperature 37.1 ??C (98.7 ??F) 06/17/2023 1:09 PM CS T Respiratory Rate 18 06/17/2023 1:09 PM ZYGLO INSPECTOR Oxygen Saturation 99% 06/17/2023 1:09 PM ZYGLO INSPECTOR Inhaled Oxygen Concentration - - Weight 67.1 kg (148 lb) 06/17/2023 1:09 PM ZYGLO INSPECTOR Height 162.6 cm (5' 4 ) 06/17/2023 1:09 PM ZYGLO INSPECTOR Body Mass Index 25.4 06/17/2023 1:09 PM ZYGLO INSPECTOR documented in this encounter Progress Notes * Charley Cabrera MD - 06/17/2023 1:00 PM CST Reason for Visit: Anxiety History of Present Illness: HPI She states she has been very anxious. Gets so overwhelmed that she feels like everything is spinning. Hx of seeing psych whEn she was diagnosed with ADHD tAKES STIMULANT for ADD. States it helps. Wants to know if SHE SHOULD TAke PRN Clonipin.states has had in past and helped She states does not like xanax. Lorazepam- SHE STATES she does not take it anymore. Was to help her sleep. States it used to help.Last refill was 05/20/2023 States she has tried paxil, buspar in past. Started on phenteramine for weight loss per OB. No other concerns for today. ROS: Review of Systems Medications: Current Outpatient Medications: ??? buPROPion XL (WELLBUTRIN XL) 150 MG 24 hr tablet, Take 1 tablet (150 mg total) by mouth daily.,Disp: 30 tablet, Rfl: 2 ??? estradiol 1 MG tablet, Take 2 tablets (2 mg total) by mouth daily., Disp: , Rfl: ??? methylphenidate CR (CONCERTA) 36 MG tablet, Take 1 tablet (36 mg total) by mouth every morning., Disp: 30 tablet, Rfl: 0 ??? Multiple Vitamin (MULTIVITAMIN ADULT OR), Take by mouth daily. , Disp: , Rfl: ??? pravastatin (PRAVACHOL) 40 MG tablet, Take 1 tablet (40 mg total) by mouth nightly at bedtime.,Disp: 30 tablet, Rfl: 2 Review of patient's allergies indicates: Allergen Reactions ??? Amoxil [Amoxicillin] Rash Past Medical History: Diagnosis Date ??? ADHD (attention deficit hyperactivity disorder) ??? Allergic rhinitis 05/10/2018 ??? Anxiety ??? Bowel obstruction (HHS/HCC) ([facility]) ??? COVID-19 ??? Strep throat ??? Ulcerative (chronic) enterocolitis, other complication (HHS/HCC) ([facility]) ??? Ulcerative colitis (CMS/HCC) 04/15/2018 ??? Ulcerative colitis (CMS/HCC) Past Surgical History: Procedure Laterality Date ??? APPENDECTOMY ??? APPENDECTOMY ??? BREAST LUMPECTOMY Left ??? HERNIA REPAIR ??? HYSTERECTOMY Social History Socioeconomic History ??? Marital status: Tobacco Use ??? Smoking status: Every Day Packs/day: 0.25 Years: 15.00 Additional pack years: 0.00 Total pack years: 3.75 Types: Cigarettes Passive exposure: Past ??? Smokeless tobacco: Never ??? Tobacco comments: cut back alot Vaping Use ??? Vaping Use: Every day ??? Substances: Nicotine, Flavoring ??? Devices: Disposable, Pre-filled or refillable cartridge Substance and Sexual Activity ??? Alcohol use: Yes Alcohol/week: 5.0 standard drinks of alcohol Types: 3 Glasses of wine per week Comment: occ ??? Drug use: Not Currently Types: Marijuana Comment: rare use ??? Sexual activity: Not Currently control/protection: Surgical Social History Narrative Live alone with her dog E-Cigarettes Questions Responses E-Cigarette Use Current Every Day User E-cigarette/Vaping Substances Questions Responses Nicotine Yes THC No CBD No Flavoring Yes E-cigarette/Vaping Devices Questions Responses Disposable Yes Pre-filled or Refillable Cartridge Yes Refillable Tank No Pre-filled Pod No Family History Problem Relation Name Age of Onset ??? Heart Mother ??? Heart Father ??? Heart Paternal Grandfather ??? Aneurysm Paternal Grandfather ??? Cancer Paternal Grandfather colon Family Status Relation Name Status ??? Mother Alive ??? Father Alive ??? PGF Physical Exam Vitals reviewed. HENT: Head: Normocephalic and atraumatic. Eyes: Conjunctiva/sclera: Conjunctivae normal. Cardiovascular: Rate and Rhythm: Normal rate and regular rhythm. Pulmonary: Effort: Pulmonary effort is normal. Breath sounds: Normal breath sounds. No wheezing. Musculoskeletal: Right lower leg: No edema. Left lower leg: No edema. Skin: General: Skin is warm. Neurological: Mental Status: She is alert and oriented to person, place, and time. Psychiatric: Mood and Affect: Mood normal. Behavior: Behavior normal. Judgment: Judgment normal. Filed Vitals: 06/17/23 1309 BP: 136/80 Pulse: 85 Resp: 18 Temp: 98.7 ??F (37.1 ??C) TempSrc: Temporal SpO2: 99% Weight: 67.1 kg (148 lb) Height: 1.626 m (5' 4 ) Diagnoses/Impression: 1. Generalized anxiety disorder buPROPion XL (WELLBUTRIN XL) 150 MG 24 hr tablet DISCONTINUED: buPROPion XL (WELLBUTRIN XL) 150 MG 24 hr tablet 2. Attention deficit hyperactivity disorder (ADHD), combined type buPROPion XL (WELLBUTRIN XL) 150 MG 24 hr tablet DISCONTINUED: buPROPion XL (WELLBUTRIN XL) 150 MG 24 hr tablet Recommendations and Plan: Buspar- states did not help HX OF AMBEIN AND LUNESTA Orders Placed This Encounter ??? DISCONTD: buPROPion XL (WELLBUTRIN XL) 150 MG 24 hr tablet ??? buPROPion XL (WELLBUTRIN XL) 150 MG 24 hr tablet Reviewed and updated this visit by provider: Charley Cabrera MD Referring Provider: No ref. provider found PCP: Charley Cabrera MD O INSPECTOR documented in this encounter Plan of Treatment Upcoming Encounters Date Type Department Care Team (Late st Contact Info) Description 09/08/2024 10:10 AM ZYGLO INSPECTOR Office Visit [facility] Family Medicine - [place] [address] [place], [place] [id number] Samantha Sanders MD [address] [place], [place] [id number] documented as of this encounter Visit Diagnoses Diagnosis Generalized anxiety disorder- Primary Attention deficit hyperactivity disorder (ADHD), combined type documented in this encounter Additional Health Concerns Infection Onset Date Last Indicated Resolved Time COVID-19 Confirmed 05/25/2023 05/25/2023 12:32 AM ZYGLO INSPECTOR Assessment Noted Time PHQ-9 Depression Total Score: 14 023 1:30 PM ZYGLO INSPECTOR documented as of this encounter Care Teams Head Pastry Chef Relationship Specialty [place] [address] [facility] [place] [place] [address] PCP - General FAMILY PRACTICE 04/21/22 03/03/24 documented as of this encounter
--- OUTSIDE RECORDS SUMMARY | 2024-07-24 00:45 | XMS_ITS | Encounter Summary ---
Author Organization [facility] Address [address] [place] [address]. [place], [place] [address] [place] [address] Care Team Providers Care Solaris Administrator Name Role Phone Charley Cabrera MD Primary Care Provider [phone] Samantha Sanders MD Primary Care Provider + Encounter Details Date Type Department Care Team (Late Contact Info) Description 12/03/2022 [employer] Message Enc [facility] Medical [facility] Family & Internal Medicine [address] [address] [employer], [facility] Provider Concerta Social History Tobacco Use Types Packs/Day [...] st Contact Info) Description 09/08/2024 10:10 AM FIXING MACHINE OPERATOR Office Visit [facility] Family Medicine [facility] [address] [facility] [address] [place], [place] [address] Samantha Sanders MD [address] [place] [address] documented as of this encounter Visit Diagnoses Not on filedocumented in this encounter Additional Health Concerns Infection Onset Date Last Indicated Resolved Time COVID-19 Rule Out 05/25/2023 05/25/2023 05/25/2023 10:11 AM FIXING MACHINE OPERATOR COVID-19 Confirmed 05/25/2023 05/25/2023 12:32 AM FIXING MACHINE OPERATOR Assessment Noted Time PHQ-9 Depression Total Score: 0 04/21/20 22 2:28 PM CDT documented as of this encounter Care Teams Solaris Administrator Relationship Specialty [place] [address] [facility]. [address] [place] [address] PCP - General FAMILY PRACTICE 04/21/22 03/03/24 Samantha Sanders MD [address] [place] [address] PCP - General FAMILY PRACTICE 03/07/24 documented as of this encounter
--- OUTSIDE RECORDS SUMMARY | 2024-07-24 00:45 | XMS_ITS | Encounter Summary ---
Author Organization [facility] Address [address] [place] [address]. [place], [place] [address] [place] [address] Care Team Providers Care Grant Administrator Name Role Phone Charley Cabrera MD Primary Care Provider [phone] Samantha Sanders MD Primary Care Provider + Encounter Details Date Type Department Care Team (Late Contact Info) Description 11/10/2022 [employer] Message Enc [facility] Family & Internal Medicine [address] [address] Lindsey Shell, [facility] Provider medication Social History Tobacco Use Types Packs/Day [...] st Contact Info) Description 09/08/2024 10:10 AM ARMOURED CORPS OFFICER Office Visit [facility] Family Medicine - [place] [address] [place] [address] Samantha Sanders MD [address] [place] [address] documented as of this encounter Visit Diagnoses Not on filedocumented in this encounter Additional Health Concerns Infection Onset Date Last Indicated Resolved Time COVID-19 Rule Out 05/25/2023 05/25/2023 05/25/2023 10:11 AM [employer] OFFICER COVID-19 Confirmed 05/25/2023 05/25/2023 12:32 AM [employer] OFFICER Assessment Noted Time PHQ-9 Depression Total Score: 0 04/21/20 2:28 PM CDT documented as of this encounter Care Teams Grant Administrator Relationship Specialty [place] [address] [facility] [address] [place] [address] PCP - General FAMILY PRACTICE 04/21/22 03/03/24 Samantha Sanders MD [address] [place] [address] PCP - General FAMILY PRACTICE 03/07/24 documented as of this encounter
--- OUTSIDE RECORDS SUMMARY | 2024-07-24 00:45 | XMS_ITS | Encounter Summary ---
Author Organization [facility] Address [address] [place] [address]. [place], [place] [address] [place] [address] Care Team Providers Care General Distillery Worker Name Role Phone Charley Cabrera MD Primary Care Provider [phone] Reason for Visit * Reason Onset Date Comments Error 06/16/2023 Encounter Details Date Type Department Care Team (Late st Contact Info) Description 06/16/2023 Telephone [facility] Family & Internal Medicine [facility] [address] [place] [address] [place] [address] [place] [address]. [address] [place] [address] Error Social History Tobacco Use Types Packs/Day Years [...] as of this encounter Progress Notes * Shae Moore - 06/16/2023 11:17 AM CST Error RESSOR STATION ENGINEER CHIEF documented in this encounter Plan of Treatment Upcoming Encounters Date Type Department Care Team (Late st Contact Info) Description 09/08/2024 10:10 AM COMPRESSOR STATION ENGINEER CHIEF Office Visit [facility] Family Medicine - [place] [address] [place] [address] Samantha Sanders MD [address] [place], [place] [address] documented as of this encounter Visit Diagnoses Not on filedocumented in this encounter Additional Health Concerns Infection Onset Date Last Indicated Resolved Time COVID-19 Confirmed 05/25/2023 05/25/2023 12:32 AM COMPRESSOR STATION ENGINEER CHIEF Assessment Noted Time PHQ-9 Depression Total Score: 0 04/21/20 22 2:28 PM CDT documented as of this encounter Care Teams General Distillery Worker Relationship Specialty [place] [address] [address] [place] [address] PCP - General FAMILY PRACTICE 04/21/22 03/03/24 documented as of this encounter
--- OUTSIDE RECORDS SUMMARY | 2024-07-24 00:45 | XMS_ITS | Encounter Summary ---
Author Organization [facility] Address [address] [place] [address]. [place], [place] [address] [place] [address] Care Team Providers Care Fire Suppression Captain Name Role Phone Charley Cabrera MD Primary Care Provider [phone] Encounter Details Date Type Department Care Team (Latest Contact Info) Description 03/11/2023 Travel Social History Tobacco Use Types Packs/Day [...] st Contact Info) Description 09/08/2024 10:10 AM HAND RUG CLEANER Office Visit [facility] Family Medicine - [place] [address] [place], [place] [phone] Samantha Sanders MD [address] [place], [place] [phone] documented as of this encounter Visit Diagnoses Not on filedocumented in this encounter Additional Health Concerns Assessment Noted Time PHQ-9 Depression Total Score: 0 04/21/20 2:28 PM CDT documented as of this encounter Care Teams Fire Suppression Captain Relationship Specialty [place] [address] [address] [place], [place] [id number] PCP - General FAMILY PRACTICE 04/21/22 03/03/24 documented as of this encounter
--- OUTSIDE RECORDS SUMMARY | 2024-07-24 00:45 | XMS_ITS | Encounter Summary ---
Author Organization [facility] Address [address] [place] [address]. [place], [place] [address] [place] [address] Care Team Providers Care Surveillance Observer Name Role Phone Charley Cabrera MD Primary Care Provider [phone] Reason for Visit * Reason Onset Date Comments Question 08/27/2023 Encounter Details Date Type Department Care Team (Late st Contact Info) Description 08/27/2023 Telephone [facility] Family & Internal Medicine [facility] [address] [place] [address] Gary Parks, DORINA [address] [facility] [place] [address] Question Social History Tobacco Use Types Packs/Day Years [...] as of this encounter Progress Notes * Radha Ortiz RN - 08/27/2023 12:42 PM CST Images from the original note were not included. Gary Parks NP You24 minutes ago (12:17 PM) I got it taken care of. Gary Parks NP You25 minutes ago (12:16 PM) I took care of this. Patient was called and scripted a different medication. RVISOR METAL PLACING * Rosemary Raymond - 08/27/2023 11:43 AM CST She has a medication question, as talking about the different meds she has been taking for her ADHD. She is asking if a script for the generic Vyvance, could be sent to her pharmacy. At the starting dose that is recommended. RVISOR METAL PLACING documented in this encounter Plan of Treatment Upcoming Encounters Date Type Department Care Team (Late st Contact Info) Description 09/08/2024 10:10 AM SUPERVISOR METAL PLACING Office Visit [facility] Family Medicine - [place] [address] [facility] [address] [place] [address] Samantha Sanders MD [address] [place] [address] documented as of this encounter Visit Diagnoses Not on filedocumented in this encounter Additional Health Concerns Assessment Noted Time PHQ-9 Depression Total Score: 14 023 1:30 PM SUPERVISOR METAL PLACING documented as of this encounter Care Teams Surveillance Observer Relationship Specialty [place] [address] [address] [place] [address] PCP - General FAMILY PRACTICE 04/21/22 03/03/24 documented as of this encounter
--- OUTSIDE RECORDS SUMMARY | 2024-07-24 00:45 | XMS_ITS | Encounter Summary ---
Author Organization [facility] Address [address] [place] [address]. [place], [place] [address] [place] [address] Care Team Providers Care Galvanometer Assembler Name Role Phone Charley Cabrera MD Primary Care Provider [phone] Reason for Visit * Reason Onset Date Comments Refill Request 01/22/2023 Encounter Details Date Type Department Care Team (Late st Contact Info) Description 01/22/2023 Telephone [facility] Family & Internal Medicine [facility] [address] [place] [phone] Charley Cabrera [place] [address] [place] [address]. [address] [place] [address] Refill Request Social History Tobacco [...] Progress Notes * Charley Cabrera MD - 01/24/2023 10:12 AM CDT sent * Alanna Capone RN - 01/23/2023 4:50 PM CDT See note * Shae Moore - 01/23/2023 3:53 PM CDT Karlie called checking on her medication. She is asking if 50 or 60 was sent in. She said the pharmacy told her 50 was sent in but on my chart is showing 60. Please call [phone] * Macy Kim - 01/22/2023 1:25 PM CDT Patient called refill request patient stated she knows her refill won't sent till the [facility] told [facility] the medication concerta is on shortage if you can send script to the pharmacy so theywill have it ready for her when it due for her to picker and sorter load and unload. Patient would like script sent to [facility] [place] . documented in this encounter Plan of Treatment Upcoming Encounters Date Type Department Care Team (Late st Contact Info) Description 09/08/2024 10:10 AM SYSTEMS SOFTWARE ENGINEER Office Visit [facility] Family Medicine - [place] [address] [place] [id number] Samantha Sanders MD [address] [place], [place] [phone] documented as of this encounter Visit Diagnoses Diagnosis Attention deficit hyperactivity disorder (ADHD), combined type documented in this encounter Additional Health Concerns Assessment Noted Time PHQ-9 Depression Total Score: 0 04/21/20 22 2:28 PM CDT documented as of this encounter Care Teams Galvanometer Assembler Relationship Specialty [place] [address] [address] [place] [address] PCP - General FAMILY PRACTICE 04/21/22 03/03/24 documented as of this encounter
--- OUTSIDE RECORDS SUMMARY | 2024-07-24 00:45 | XMS_ITS | Encounter Summary ---
Author Organization [facility] Address [address] [place] [address]. [place], [place] [address] [place] [address] Care Team Providers Care Cake Decorator Name Role Phone Charley Cabrera MD Primary Care Provider [phone] Reason for Visit * Reason Onset Date Comments Medication Problem 12/19/2022 Encounter Details Date Type Department Care Team (Late st Contact Info) Description 12/19/2022 Telephone [facility] Family & Internal Medicine [facility] [address] [place] [address] [place] [address] [facility] [place] [address] Medication Problem Social History Tobacco [...] Progress Notes * Ninfa Chi LPN - 12/25/2022 10:03 AM CDT Pt called read all providers message V/U no questions * Alanna Capone RN - 12/19/2022 2:28 PM CDT Spoke with Juainta at [facility] and informed of message from Dr Cabrera. Juanita voiced understanding. * Charley Cabrera MD - 12/19/2022 12:57 PM CDT Advise pharmacy to Wait til 01/07 to fill current script. Thanks * Alanna Capone RN - 12/19/2022 10:51 AM CDT Received call from Kimi at [facility] wanting clarification on script. Per Kimi, patient got Concerta CR 36 mg #26 filled on 11/30/2022 and then again on 12/07/2022 for #30. Per Kimi they received another script today for Concerta CR 18 mg. Kimi wanting to know if they should fill this since patient just received those other fills as above. documented in this encounter Plan of Treatment Upcoming Encounters Date Type Department Care Team (Late st Contact Info) Description 09/08/2024 10:10 AM MEDICAL PRACTICE ADMINISTRATOR Office Visit [facility] Family Medicine - [place] [address] [facility] [address] [place] [address] Samantha Sanders MD [address] [place] [address] documented as of this encounter Visit Diagnoses Not on filedocumented in this encounter Additional Health Concerns Assessment Noted Time PHQ-9 Depression Total Score: 0 04/21/20 22 2:28 PM CDT documented as of this encounter Care Teams Cake Decorator Relationship Specialty [place] [address] [address] [place] [address] PCP - General FAMILY PRACTICE 04/21/22 03/03/24 documented as of this encounter
--- OUTSIDE RECORDS SUMMARY | 2024-07-24 00:45 | XMS_ITS | Encounter Summary ---
Author Organization [facility] Address [address] [place] [address]. [place], [place] [address] [place] [address] Care Team Providers Care Internet Architect Name Role Phone Charley Cabrera MD Primary Care Provider [phone] Encounter Details Date Type Department Care Team (Latest Contact Info) Description 03/11/2023 3:34 PM CDT - 03/11/2023 5:12 PM CDT Hospital Encounter [facility] [address] [place] [address] Lexie Manzanares PA-C [address] [facility] [address] [place] [address] Discharge Disposition: Home or Self Care (Routine [...] on file documented as of this encounter Medications at Time of Discharge estradiol 1 MG tablet Take 1 tablet (1 mg total) by mouth daily. 12/11/2021 Multiple Vitamin (MULTIVITAMIN ADULT OR) Take by mouth daily. buPROPion XL (WELLBUTRIN XL) 150 MG 24 hr tablet daily. 3 busPIRone (BUSPAR) 5 MG tabletIndications:Ge neralized anxiety disorder Take 1 tablet (5 mg total) by mouth 2 (two) times daily. 60 tablet 2 09/10/2022 3 cephALEXin (KEFLEX) 500 MG capsuleIndications:T ooth infection Take 1 capsule (500 mg total) by mouth 3 (three) times daily for 10 days. 30 capsule 03/11/2023 3 cephALEXin (KEFLEX) 500 MG capsuleIndications:F olliculitis Take 1 capsule (500 mg total) by mouth 3 (three) times daily. 21 capsule 12/19/2022 3 HYDROcodone-acetamin ophen (NORCO) 5-325 MG tabletIndications:Ac neeraj Pain < 3 Day Supply Take 1 tablet by mouth every 6 (six) hours as needed for Pain. Indications: Acute Pain < 3 Day Supply 12 tablet 03/11/2023 3 ibuprofen (MOTRIN) 800 MG tabletIndications:To oth pain Take 1 tablet (800 mg total) by mouth every 8 (eight) hours as needed for Pain. 30 tablet 1 03/11/2023 3 ketoconazole (NIZORAL) 2 % creamIndications:Int ertrigo Apply topically 2 (two) times daily. 30 g 12/19/2022 3 methylphenidate CR (CONCERTA) 36 MG tabletIndications:At tention deficit hyperactivity disorder (ADHD), combined type Take 1 tablet (36 mg total) by mouth every morning. 30 tablet 02/24/2023 3 methylPREDNISolone, JAYASHREE, (MEDROL DOSEPAK) 4 MG tabletIndications:Br onchitis 6 TABLETS ON DAY ONE, 5 TABLETS DAY TWO, 4 TABLETS DAY THREE, 3 TABLETS DAY FOUR, 2 TABLETS DAY FIVE, AND 1 TABLET DAY SIX 1 each 12/19/2022 3 pravastatin (PRAVACHOL) 40 MG tabletIndications:Mi xed hyperlipidemia Take 1 tablet (40 mg total) by mouth nightly at bedtime. 30 tablet 2 05/19/2022 documented as of this encounter Plan of Treatment Upcoming Encounters Date Type Department Care Team (Late st Contact Info) Description 09/08/2024 10:10 AM FIBERGLASS FABRICATOR Office Visit [facility] Family Medicine - [place] [address] [place] [address] Samantha Sanders MD [address] [place], [place] [id number] documented as of this encounter Procedures Procedure Name Priority Date/Time Associated Diagnosis Comments XR LUMB SPINE 3V Routine 03/11/2023 3:57 PM CDT Acute bilateral low back pain with left-sided sciatica documented in this encounter Results * XR LUMB SPINE 3V (03/11/2023 3:57 PM CDT) Anatomical Region Laterality Modality Spine Radiographic Kaleigh ging 03/12/2023 4:32 AM CDT Impressions 03/12/2023 4:33 AM CDT IMPRESSION: Negative lumbosacral spine. Referred By: ?? Interpreted By: Carlos Guzman, 03/12/2023 4:32 AM Narrative 03/12/2023 4:33 AM CDT HISTORY: Fall, back pain, left leg weakness COMPARISON: CT abdomen and pelvis dated 02/15/2021 NUMBER OF IMAGES:3 FINDINGS: Routine views of the lumbosacral spine show the vertebral bodies to be of normal height, contour, and alignment. ??Disc heights preserved. ??No significant intervertebral degenerative change. ??Facet joints in normal alignment. ??SI joints normal. ??Soft tissues unremarkable. Procedure Note Carlos Guzman MD - 03/12/2023 HISTORY: Fall, back pain, left leg weakness COMPARISON: CT abdomen and pelvis dated 02/15/2021 NUMBER OF IMAGES:3 FINDINGS: Routine views of the lumbosacral spine show the vertebral bodies to be ofnormal height, contour, and alignment. Disc heights preserved. Nosignificant intervertebral degenerative change. Facet joints in normalalignment. SI joints normal. Soft tissues unremarkable. IMPRESSION: Negative lumbosacral spine. Referred By: Interpreted By: Carlos Guzman, 03/12/2023 4:32 AM Lexie Manzanares PA-C GENERAL IMAGING Final Result documented in this encounter Visit Diagnoses Diagnosis Acute bilateral low back pain with left-sided sciatica documented in this encounter Additional Health Concerns Assessment Noted Time PHQ-9 Depression Total Score: 0 04/21/20 22 2:28 PM CDT documented as of this encounter Care Teams Internet Architect Relationship Specialty [place] [address] [address] [place] [address] PCP - General FAMILY PRACTICE 04/21/22 03/03/24 documented as of this encounter
--- OUTSIDE RECORDS SUMMARY | 2024-07-24 00:45 | XMS_ITS | Encounter Summary ---
Author Organization [facility] Address [address] [place] [address]. [place], [place] [id number] [place] [address] Care Team Providers Care Ssrs Report Developer Name Role Phone Charley Cabrera MD Primary Care Provider [phone] Encounter Details Date Type Department Care Team (Late st Contact Info) Description 04/28/2023 Discharge [facility] Outpatient Therapy [place], [place] [address] Umberto Mendoza, [place] [address] Social History Tobacco Use Types Packs/Day Years [...] as of this encounter Progress Notes * Umberto Mendoza, PT - 04/28/2023 2:54 PM CDT This patient is being discharged from physical therapy due to no contact in over one month and no further scheduled appointments. documented in this encounter Plan of Treatment Upcoming Encounters Date Type Department Care Team (Late st Contact Info) Description 09/08/2024 10:10 AM ENVELOPE SEALING MACHINE OPERATOR Office Visit [facility] Family Medicine - [place] [address] [facility] [address] [place] [id number] Samantha Sanders MD [address] [place] [address] documented as of this encounter Visit Diagnoses Not on filedocumented in this encounter Additional Health Concerns Assessment Noted Time PHQ-9 Depression Total Score: 0 04/21/20 2:28 PM CDT documented as of this encounter Care Teams Ssrs Report Developer Relationship Specialty [place] [address] [facility] [address] [place], [place] [id number] PCP - General FAMILY PRACTICE 04/21/22 03/03/24 documented as of this encounter
--- OUTSIDE RECORDS SUMMARY | 2024-07-24 00:45 | XMS_ITS | Encounter Summary ---
Author Organization [facility] Address [address] [place] [address]. [place], [place] [address] [place] [address] Care Team Providers Care Judge Clerk Name Role Phone Charley Cabrera MD Primary Care Provider [phone] Encounter Details Date Type Department Care Team (Late st Contact Info) Description 08/27/2023 Medication Management [facility] Family & Internal Medicine [address] [address] Gary Parks, DORINA [address] [place] [address] [place] [address] Social History Tobacco Use Types [...] Progress Notes * Gary Parks NP - 08/27/2023 12:10 PM CST As discussed at our visit. Patient will switch over to Vyvnase 30mg and stop Concerta. Medication has been ineffective for patient. GER PHP documented in this encounter Plan of Treatment Upcoming Encounters Date Type Department Care Team (Late st Contact Info) Description 09/08/2024 10:10 AM MANAGER PHP Office Visit [facility] Family Medicine - [place] [address] [facility] [address] [place] [address] Samantha Sanders MD [address] [place] [address] documented as of this encounter Visit Diagnoses Diagnosis Attention deficit hyperactivity disorder (ADHD), combined type- Primary documented in this encounter Additional Health Concerns Assessment Noted Time PHQ-9 Depression Total Score: 14 023 1:30 PM MANAGER PHP documented as of this encounter Care Teams Judge Clerk Relationship Specialty [place] [address] [facility] [address] [place] [address] PCP - General FAMILY PRACTICE 04/21/22 03/03/24 documented as of this encounter
--- OUTSIDE RECORDS SUMMARY | 2024-07-24 00:45 | XMS_ITS | Encounter Summary ---
Author Organization [facility] Address [address] [place] [address]. [place], [place] [address] [place] [address] Care Team Providers Care Land Commissioner Name Role Phone Charley Cabrera MD Primary Care Provider [phone] Encounter Details Date Type Department Care Team (Latest Contact Info) Description 08/25/2023 Travel Social History Tobacco Use Types Packs/Day [...] st Contact Info) Description 09/08/2024 10:10 AM RECREATIONAL SPECIALIST Office Visit [facility] Family Medicine - [place] [address] [place] [phone] Samantha Sanders MD [address] [place], [place] [phone] documented as of this encounter Visit Diagnoses Not on filedocumented in this encounter Additional Health Concerns Assessment Noted Time PHQ-9 Depression Total Score: 14 023 1:30 PM RECREATIONAL SPECIALIST documented as of this encounter Care Teams Land Commissioner Relationship Specialty [place] [address] [address] [place] [address] PCP - General FAMILY PRACTICE 04/21/22 03/03/24 documented as of this encounter
--- OUTSIDE RECORDS SUMMARY | 2024-07-24 00:45 | XMS_ITS | Encounter Summary ---
Author Organization [facility] Address [address] [place] [address]. [place], [place] [address] [place], [place] [phone] Care Team Providers Care Transfer And Line Up Worker Name Role Phone Charley Cabrera MD Primary Care Provider [phone] Reason for Visit * Reason Comments Attention Deficit Hyperactivity Disorder 3 MONTH F/U Encounter Details Date Type Department Care Team (Latest Contact Info) Description 10/23/2022 7:40 AM CDT Office Visit [facility] Family & Internal Medicine [address] [address] Charley Cabrera MD [address] [place] [address]. [address] [place] [phone] Attention Deficit Hyperactivity Disorder (3 MONTH F/U) Social History Tobacco Use Types Packs/Day Years Used Date Smoking Tobacco: Light Smoker Cigarettes Smokeless Tobacco: Never Tobacco Cessation:Ready to Q uit: Yes; Counseling Given: No Comments:cut back alot Alcohol [...] Sign Reading Time Taken Comments Blood Pressure 106/68 10/23/2022 7:54 AM CDT Pulse 78 10/23/2022 7:54 AM CDT Temperature 37.8 ??C (100 ??F) 10/23/2022 7:54 AM CDT Respiratory Rate 20 10/23/2022 7:54 AM CDT Oxygen Saturation 100% 10/23/2022 7:54 AM CDT Inhaled Oxygen Concentration - - Weight 66.2 kg (146 lb) 10/23/2022 7:54 AM CDT Height 162.6 cm (5' 4 ) 10/23/2022 7:54 AM CDT Body Mass Index 25.06 10/23/2022 7:54 AM CDT documented in this encounter Progress Notes * Charley Cabrera MD - 10/23/2022 7:40 AM CDT Reason for Visit: Attention Deficit Hyperactivity Disorder (3 MONTH F/U) History of Present Illness: HPI Miss Karlie Ivory?is a pleasant 47-year-old female with??past medical history but not limited to anxiety, depression, ADHD on vyvanse- diagnosed per psychiatry, hyperlipidemia, chronic insomnia ,??status postlumpectomy,??hysterectomy secondary to dysmenorrhea,??ulcerative colitis in remission was seen in office today for follow-up on her ADHD. Per last refill she has been on vyvansee 40 mg qD. She is also being prescribed ativan per her geodesist x Bubba Pisano MD No longer taking bupropion or hydroxyzine. Buspar was restarted in Aug 2021. She takes it as needed. She states Vyvanse works well for her attention. She takes it every morning. Effects wear off laterin the day. She feels more jittery to work the afternoon. Lower dose made her feel the same. She states she was doing better when she was on Vyvanse 60 mg daily. She is also paying for it [id number] as insurance is not covering it. States she really needs this medication as it helps. She takes Ativan to help her sleep at night. 0.5 mg dose usually. No other concerns for today. ROS: Review of Systems Constitutional: Negative for activity change, appetite change, chills and fever. HENT: Negative for congestion, ear discharge, facial swelling, hearing loss, nosebleeds, postnasal drip, rhinorrhea and sinus pressure. Eyes: Negative for visual disturbance. Respiratory: Negative for cough, shortness of breath and wheezing. Cardiovascular: Negative for chest pain, palpitations and leg swelling. Gastrointestinal: Negative for abdominal pain, constipation, diarrhea, heartburn, nausea and vomiting. Endocrine: Negative for polyuria. Genitourinary: Negative for dysuria, hematuria and pelvic pain. Musculoskeletal: Negative for arthralgias. Neurological: Negative for dizziness, syncope and headaches. Psychiatric/Behavioral: Positive for decreased concentration and sleep disturbance. Negative for behavioral problems and depression. The patient is nervous/anxious. Medications: Current Outpatient Medications: ??? amphetamine-dextroamphetamine XR (ADDERALL XR) 20 MG 24 hr capsule, Take 1 capsule (20 mg total) by mouth every morning., Disp: 30 capsule, Rfl: 0 ??? azelastine (AZELASTINE) 0.1 % nasal spray, 1 spray by Nasal route 2 (two) times daily. Use in each nostril as directed (Patient taking differently: 1 spray by Nasal route daily. Use in each nostril as directed), Disp: 30 mL, Rfl: 1 ??? busPIRone (BUSPAR) 5 MG tablet, Take 1 tablet (5 mg total) by mouth 2 (two) times daily., Disp:60 tablet, Rfl: 2 ??? estradiol 1 MG tablet, Take 1 tablet (1 mg total) by mouth daily., Disp: , Rfl: ??? Multiple Vitamin (MULTIVITAMIN ADULT OR), Take by mouth daily. , Disp: , Rfl: ??? pravastatin (PRAVACHOL) 40 MG tablet, Take 1 tablet (40 mg total) by mouth nightly at bedtime.,Disp: 30 tablet, Rfl: 2 ??? LORazepam (ATIVAN) 1 MG tablet, lorazepam 1 mg tablet TAKE 1 TABLET BY MOUTH DAILY, Disp: , Rfl: No Known Allergies Past Medical History: Diagnosis [...] Vitals reviewed. HENT: Head: Normocephalic and atraumatic. Right Ear: Tympanic membrane normal. Left Ear: Tympanic membrane normal. Nose: Nose normal. Mouth/Throat: Mucous membranes are moist. Oropharynx is clear. Eyes: Conjunctiva/sclera: Conjunctivae normal. Cardiovascular: Rate and Rhythm: Normal rate. Pulmonary: Breath sounds: Normal breath sounds. Musculoskeletal: Right lower leg: No edema. Left lower leg: No edema. Skin: General: Skin is warm. Neurological: General: No focal deficit present. Mental Status: She is alert and oriented to person, place, and time. Psychiatric: Mood and Affect: Mood is anxious. Behavior: Behavior normal. Thought Content: Thought content does not include homicidal or suicidal ideation. Thought content does not include homicidal or suicidal plan. Judgment: Judgment normal. Filed Vitals: 10/23/22 0754 BP: 106/68 Pulse: 78 Resp: 20 Temp: 100 ??F (37.8 ??C) TempSrc: Temporal SpO2: 100% Weight: 66.2 kg (146 lb) Height: 5' 4 (1.626 m) Diagnoses/Impression: 1. Attention deficit hyperactivity disorder (ADHD), combined type amphetamine- dextroamphetamine XR (ADDERALL XR) 20 MG 24 hr capsule Recommendations and Plan: Up-to-date on CSA and urine drug screen. Symptoms uncontrolled Shared decision making to switch to Adderall today. Vyvanse is expensive as she is paying [id number] and also has been ineffective since she has been on it for a long time now. Patient is agreeable to try a comparable dose of Adderall. Advised to take BuSpar on a regular basis for her anxiety. Avoid benzo, given long-term side effects of addiction and especially with stimulant. She is being prescribed this by her geodesist. Close follow-up in 3 weeks. She voiced understanding and agrees with the plan. All questions answered. Orders Placed This Encounter ??? LORazepam (ATIVAN) 1 MG tablet ??? amphetamine-dextroamphetamine XR (ADDERALL XR) 20 MG 24 hr capsule Reviewed and updated this visit by provider: Charley Cabrera MD Referring Provider: No ref. provider found PCP: Charley Cabrera MD documented in this encounter Plan of Treatment Upcoming Encounters Date Type Department Care Team (Late st Contact Info) Description 09/08/2024 10:10 AM GENERAL CARGO CLERK Office Visit [facility] Family Medicine - [place] [address] [place] [address] Samantha Sanders MD [address] [place] [address] documented as of this encounter Visit Diagnoses Diagnosis Attention deficit hyperactivity disorder (ADHD), combined type- Primary documented in this encounter Additional Health Concerns Assessment Noted Time PHQ-9 Depression Total Score: 0 10/03/20 22 2:28 PM CDT documented as of this encounter Care Teams Transfer And Line Up Worker Relationship Specialty [place] [address] [address] [place] [address] PCP - General FAMILY PRACTICE 04/21/22 03/03/24 documented as of this encounter
--- OUTSIDE RECORDS SUMMARY | 2024-07-24 00:45 | XMS_ITS | Encounter Summary ---
Author Organization [facility] Address [address] [place] [address]. [place], [place] [address] [place] [address] Care Team Providers Care Structural Engineering Technician Name Role Phone Charley Cabrera MD Primary Care Provider [phone] Reason for Visit * Reason Onset Date Comments Question 02/17/2023 Encounter Details Date Type Department Care Team (Late st Contact Info) Description 02/17/2023 Telephone [facility] Family & Internal Medicine [facility] [address] [place] [address] [place] Cab[place] [id number] [place] [address]. [address] [place] [address] Question Social History Tobacco Use Types Packs/Day [...] Progress Notes * Alanna Capone RN - 02/23/2023 11:09 AM CDT Spoke with patient and discussed script. Patient voiced understanding and states that she was just concerned about pharmacy having the medication as she will need it tomorrow. Advised patient to let me know if she has any issues getting filled and we can resend somewhere else. Patient voiced understanding. * Charley Cabrera MD - 02/19/2023 10:07 PM CDT Noted last prescription was filled 01/25 per PDMP. Hence due on February 24 * Alanna Capone RN - 02/19/2023 4:26 PM CDT Please advise * Naty Mccullough - 02/19/2023 4:13 PM CDT Pt called and information provided. Pt states that the med is due on the and not the . Can that be fixed, please. * Alanna Capone RN - 02/19/2023 3:30 PM CDT Left message for patient to return call. * Charley Cabrera MD - 02/19/2023 5:38 AM CDT Prescription sent for Concerta 36 mg daily instead of 18 mg twice daily. PA not needed. * Fernando Fernandez RN - 02/18/2023 9:29 AM CDT Please advise. * Ellen Payan - 02/17/2023 4:51 PM CDT Patient called asking if provider could change her Concerta script to once daily with an increase dose? Said it's working well just would like to only take once daily. Patient also stated pharmacy always has issues filling the generic so the brand name is ok it call in. [place] YOSEPH documented in this encounter Plan of Treatment Upcoming Encounters Date Type Department Care Team (Late st Contact Info) Description 09/08/2024 10:10 AM WASTE/MATERIALS EXCHANGE SPECIALIST Office Visit [facility] Family Medicine - [place] [address] [facility] [address] [place] [address] Samantha Sanders MD [address] [place] [address] documented as of this encounter Visit Diagnoses Diagnosis Attention deficit hyperactivity disorder (ADHD), combined type- Primary documented in this encounter Additional Health Concerns Assessment Noted Time PHQ-9 Depression Total Score: 0 04/21/20 22 2:28 PM CDT documented as of this encounter Care Teams Structural Engineering Technician Relationship Specialty Start [place] [address] [facility] [place], [place] [phone] PCP - General FAMILY PRACTICE 04/21/22 03/03/24 documented as of this encounter
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
--- OUTSIDE RECORDS SUMMARY | 2024-07-24 00:45 | XMS_ITS | Encounter Summary ---
Author Organization [facility] Address [address] [place] [address]. [place], [place] [address] [place] [address] Care Team Providers Care District Ranger Name Role Phone Charley Cabrera MD Primary Care Provider [phone] Encounter Details Date Type Department Care Team (Latest Contact Info) Description 03/11/2023 5:13 PM CDT - 03/11/2023 11:59 PM CDT Hospital Encounter [facility] [address] [place] [address] Lexie Manzanares PA-C [address] [facility] [address] [place] [address] Discharge Disposition: Home or Self Care (Routine [...] 3 HYDROcodone-acetamin ophen (NORCO) 5-325 MG tabletIndications:Ac [employer] [place] Pain < 3 Day Supply Take 1 [...] st Contact Info) Description 09/08/2024 10:10 AM HOURLY SHIFT MANAGER Office Visit [facility] Family Medicine - [place] [address] [place] [address] Samantha Sanders MD [address] [place], [place] [phone] documented as of this encounter Procedures Procedure Name Priority Date/Time Associated Diagnosis Comments VITAMIN B12 / FOLATE Routine 03/11/2023 3:20 PM CDT Screening for deficiency anemia TSH W/REFLEX Routine 03/11/2023 3:20 PM CDT Thyroid disorder screening IRON SAT PANEL (IRON,IBC,%SAT) Routine 03/11/2023 3:20 PM CDT Screening for deficiency anemia COMPREHENSIVE METABOLIC PANEL Routine 03/11/2023 3:20 PM CDT Generalized weakness Other fatigue CBC W/DIFF AUTOMATED Routine 03/11/2023 3:20 PM CDT Screening for deficiency anemia VITAMIN D, 25 OH Routine 03/11/2023 3:20 PM CDT Vitamin D deficiency FERRITIN Routine 03/11/2023 3:20 PM CDT Screening for deficiency anemia documented in this encounter Results * (ABNORMAL) CBC W/DIFF AUTOMATED (03/11/2023 3:20 PM CDT) WBC 11.89(H) 4.4 - 11.0 x10'3/uL 03/11/2023 6:22 PM CDT [facility] RBC 4.71 4.50 - 5.10 x10'6/uL 03/11/2023 6:22 PM CDT [facility] HGB 14.7 12.3 - 15.3 G/DL 03/11/2023 6:22 PM CDT [facility] HCT 44.6 35.9 - 44.6 % 03/11/2023 6:22 PM CDT [facility] MCV 94.7 80.0 - 96.0 FL 03/11/2023 6:22 PM CDT [facility] MCH 31.2(H) 25.3 - 30.9 PG 03/11/2023 6:22 PM CDT [facility] MCHC 33.0 31.0 - 34.1 G/DL 03/11/2023 6:22 PM CDT [facility] RDW 12.4 12.4 - 15.1 % 03/11/2023 6:22 PM CDT [facility] PLT 413(H) 151 - 353 x10'3/uL 03/11/2023 6:22 PM T [facility] MPV 10.0 9.6 - 12.0 FL 03/11/2023 6:22 PM T [facility] RBC MORPHOLOGY NORMAL 03/11/2023 6:22 PM T [facility] PLT MORPH. NORMAL 03/11/2023 6:22 PM CDT [facility] WBC MORPHOLOGY NORMAL 03/11/2023 6:22 PM T [facility] LYMPHOCYTES % 21.3 15.8 - 45.0 % 03/11/2023 6:22 PM T [facility] NEUTROPHILS % 72.3(H) 42.1 - 71.9 % 03/11/2023 6:22 PM CDT [facility] MONOCYTES % 5.2(L) 5.7 - 12.5 % 03/11/2023 6:22 PM CDT [facility] EOSINOPHILS 0.2 0.0 - 5.6 % 03/11/2023 6:22 PM CDT [facility] BASOPHILS 0.5 0.0 - 1.3 % 03/11/2023 6:22 PM CDT [facility] ABS. NEUTROPHILS 8.60(H) 1.40 - 6.00 x10'3/uL 03/11/2023 6:22 PM CDT [facility] IMMATURE GRANS % 0.5 0.0 - 0.5 % 03/11/2023 6:22 PM CDT [facility] ABS. LYMPHOCYTES 2.53 0.80 - 4.70 x10'3/uL 03/11/2023 6:22 PM CDT [facility] 03/11/2023 3:20 PM CDT Lexie Manzanares PA-C LABORATORY Final Result [facility] [address] [place] [address], * (ABNORMAL) COMPREHENSIVE METABOLIC PANEL (03/11/2023 3:20 PM CDT) GLUCOSE 102(H) 70 - 99 MG/DL 03/11/2023 7:12 PM CDT [facility] BUN 13 7 - 18 MG/DL 03/11/2023 7:12 PM CDT [facility] CREATININE S/P/B 0.79 0.55 - 1.02 MG/DL 03/11/2023 7:12 PM CDT [facility] SODIUM S/P/B 140 136 - 145 MMOL/L 03/11/2023 7:12 PM CDT [facility] POTASSIUM S/P/B 4.7 3.5 - 5.1 MMOL/L 03/11/2023 7:12 PM T [facility] CHLORIDE S/P/B 103 100 - 108 MMOL/L 03/11/2023 7:12 PM [facility] CO2 29.2 21 - 32 MMOL/L 03/11/2023 7:12 PM T [facility] CALCIUM S/P/B 8.9 8.5 - 10.1 MG/DL 03/11/2023 7:12 PM T [facility] BILIRUBIN TOTAL S/P/B 0.4 0.2 - 1.2 MG/DL 03/11/2023 7:12 PM [facility] TOTAL PROTEIN S/P/B 7.3 6.4 - 8.2 G/DL 03/11/2023 7:12 PM [facility] ALBUMIN S/P/B 4.2 3.4 - 5.0 G/DL 03/11/2023 7:12 PM [facility] AST 14(L) 15 - 37 U/L 03/11/2023 7:12 PM [facility] ALT 19 14 - 55 U/L 03/11/2023 7:12 PM [facility] ALKALINE PHOSPHATASE S/P/B 82 50 - 136 U/L 03/11/2023 7:12 PM [facility] ANION GAP 7.8 5 - 15 MMOL/L 03/11/2023 7:12 PM [facility] BUN CREATININE RATIO 16.5 6 - 26 03/11/2023 7:12 PM [facility] A/G RATIO 1.4 1.0 - 2.0 RATIO 03/11/2023 7:12 PM [facility] GFR ESTIMATE >90 >90 ML/MIN/1.7 3 M2 03/11/2023 7:12 PM CDT [facility] Comment: NOTE: eGFR is not calculated for patients <18 years of age. This is an estimated GFR calculation using the new CKD EPI creatinine equation without race and so does not require a correction factor for race. This estimated GFR should not be used for calculating drug doses. 03/11/2023 3:20 PM CDT Lexie Manzanares PA-C LABORATORY Final Result Performing Organization Address [facility] de Phone Number [facility] [address] [place] [address], [place] [phone] * TSH W/REFLEX (03/11/2023 3:20 PM CDT) TSH 1.138 0.358 - 3.74 uIU/ML 03/11/2023 7:12 PM CDT [facility] Comment: HIGH DOSES OF BIOTIN MAY INTERFERE WITH THIS TEST RESULT. CORRELATION TO CLINICAL HISTORY AND PRESENTATION RECOMMENDED. FREE T4 NOT INDICATED 03/11/2023 3:20 PM CDT Lexie Manzanares PA-C LABORATORY Final Result Performing Organization Address [facility] de Phone Number [facility] [address] [place] [address], * VITAMIN D, 25 OH (03/11/2023 3:20 PM CDT) VITAMIN D 25 HYDROXY S/P/B 41 30 - 100 NG/ML 03/11/2023 7:08 PM CDT [facility] Comment: ? INTERPRETATION ? DEFICIENT ??<20 ? INSUFFICIENT 20-29 ?SUFFICIENT 30-100 03/11/2023 3:20 PM CDT Lexie Manzanares PA-C LABORATORY Final Result [facility] [address] [place] [address], [place] [phone] * IRON SAT PANEL (IRON,IBC,%SAT) (03/11/2023 3:20 PM CDT) IRON 95 50 - 170 MCG/DL 03/11/2023 6:56 PM CDT [facility] IRON BINDING CAPACITY 313 250 - 450 MCG/DL 03/11/2023 6:56 PM CDT [facility] IRON SATURATION 30 20 - 55 % 6:56 PM CDT [facility] 03/11/2023 3:20 PM CDT Lexie Manzanares PA-C LABORATORY Final Result Performing Organization Address [facility]/ZIP Co de Phone Number [facility] [address] [place] [address], [place] [phone] * VITAMIN B12 / FOLATE (03/11/2023 3:20 PM CDT) VITAMIN B12 S/P/B 612 193 - 986 PG/ML 03/11/2023 7:12 PM CDT [facility] FOLATE 11.0 8.6 - 58.9 NG/ML 03/11/2023 7:12 PM CDT [facility] 03/11/2023 3:20 PM CDT Lexie Manzanares PA-C LABORATORY Final Result [facility] [address] [place] [address], [place] [phone] * FERRITIN (03/11/2023 3:20 PM CDT) FERRITIN 95.0 8.0 - 388.0 NG/ML 03/11/2023 7:12 PM CDT [facility] 03/11/2023 3:20 PM CDT us Lexie Manzanares PA-C LABORATORY Final Result [facility] [address] [place] [address], [place] [phone] documented in this encounter Visit Diagnoses Diagnosis Screening for deficiency anemia Screening for other and unspecified deficiency anemia Vitamin D deficiency Unspecified vitamin D deficiency Thyroid disorder screening Screening for thyroid disorder Generalized weakness Other malaise and fatigue Other fatigue documented in this encounter Additional Health Concerns Assessment Noted Time PHQ-9 Depression Total Score: 0 04/21/20 22 2:28 PM CDT documented as of this encounter Care Teams District Ranger Relationship Specialty [place] [address] [address] [place] [address] PCP - General FAMILY PRACTICE 04/21/22 03/03/24 documented as of this encounter
--- OUTSIDE RECORDS SUMMARY | 2024-07-24 00:45 | XMS_ITS | Encounter Summary ---
Author Organization [facility] Address [address] [place] [address]. [place], [place] [address] [place] [address] Care Team Providers Care Electrical Engineering Professor Name Role Phone Charley Cabrera MD Primary Care Provider [phone] Reason for Visit * Reason Comments Image (SCAN) Encounter Details Date Type Department Care Team (Latest Contact Info) Description 05/21/2023 Scan [facility] Scanned, Doc [...] st Contact Info) Description 09/08/2024 10:10 AM ROTATING EQUIPMENT ENGINEER [facility] [address] [place] [phone] Samantha Sanders MD [address] [place] [address] documented as of this encounter Procedures Procedure Name Priority Date/Time Associated Diagnosis Comments IMAGE GENERIC 05/21/2023 documented in this encounter Results * IMAGE GENERIC (05/21/2023) Anatomical Region Laterality Modality Other 05/21/2023 us [facility] Scanned SCANNING Final Resu lt documented in this encounter Visit Diagnoses Not on filedocumented in this encounter Additional Health Concerns Infection Onset Date Last Indicated Resolved Time COVID-19 Rule Out 05/25/2023 05/25/2023 05/25/2023 10:11 AM ROTATING EQUIPMENT ENGINEER COVID-19 Confirmed 05/25/2023 05/25/2023 12:32 AM ROTATING EQUIPMENT ENGINEER Assessment Noted Time PHQ-9 Depression Total Score: 0 04/21/20 22 2:28 PM CDT documented as of this encounter Care Teams Electrical Engineering Professor Relationship Specialty [place] [address] [facility]. [address] [place] [address] PCP - General FAMILY PRACTICE 04/21/22 03/03/24 documented as of this encounter
--- OUTSIDE RECORDS SUMMARY | 2024-07-24 00:45 | XMS_ITS | Encounter Summary ---
Author Organization [facility] Address [address] [place] [address]. [place], [place] [address] [place] [address] Care Team Providers Care Brim Welt Sewing Machine Operator Name Role Phone Charley Cabrera MD Primary Care Provider [phone] Encounter Details Date Type Department Care Team (Latest Contact Info) Description 06/16/2023 Travel Social History Tobacco Use Types Packs/Day [...] st Contact Info) Description 09/08/2024 10:10 AM TUBE TURNER Office Visit [facility] Family Medicine - [place] [address] [place] [phone] Samantha Sanders MD [address] [place], [place] [phone] documented as of this encounter Visit Diagnoses Not on filedocumented in this encounter Additional Health Concerns Infection Onset Date Last Indicated Resolved Time COVID-19 Confirmed 05/25/2023 05/25/2023 12:32 AM TUBE TURNER Assessment Noted Time PHQ-9 Depression Total Score: 0 04/21/20 2:28 PM CDT documented as of this encounter Care Teams Brim Welt Sewing Machine Operator Relationship Specialty [place] [address] [facility]. [address] [place] [address] PCP - General FAMILY PRACTICE 04/21/22 03/03/24 documented as of this encounter
--- OUTSIDE RECORDS SUMMARY | 2024-07-24 00:45 | XMS_ITS | Encounter Summary ---
Author Organization [facility] Address [address] [place] [address]. [place] [id number] [place], [place] [id number] Care Team Providers Care Director Of Strategic Initiatives Name Role Phone Charley Cabrera MD Primary Care Provider [phone] Reason for Referral * Physical Medicine (Routine) - Closed Specialty Diagnoses / Procedures Referred By [place] Referred To Contact PHYSICAL THERAPY / [facility] Physical Therapy Diagnoses Generalized weakness Right arm weakness Left leg weakness Neck pain Acute bilateral low back pain with left-sided sciatica Procedures OFFICE/OUTPATIENT NEW LOW MDM 30-44 MINUTES OFFICE/OUTPT VISIT,NEW,LEVL IV OFFICE/OUTPT VISIT,NEW,LEVL V OFFICE/OUTPT VISIT,EST,LEVL III OFFICE/OUTPT VISIT,EST,LEVL IV OFFICE/OUTPT VISIT,EST,LEVL V Demond Nieto PA-C [id number] [facility] [address] [place] [address] Phone: tel: fax: [facility] [place] [address] Phone: tel: fax: Referral ID Status Reason Start Date Expiration Date V isits Requested Visits Authorized [id number] Closed Physical Therapy 03/11/2023 04/09/2024 12 12 Reason for Visit * Reason Comments Leg Weakness Her balance is off. Her left leg is worse Arm Weakness Right arm is feeling weak. Lays on that arm. Back Pain Lower back pain some what. She fell while chasing her dog about a wk or so. Fatigue Feeling like she is not focusing. No motivation. Dental Problem Has a chipped tooth on her upper left side. Would like antibiotic. Face is puffy per pt Encounter Details Date Type Department Care Team (Late st Contact Info) Description 03/11/2023 2:20 PM CDT Office Visit [facility] Family & Internal Medicine - [place] [address] [place] [address] Demond Nieto PA-C [id number] [address] Leg Weakness (Her balance is off. Her left leg is worse); Arm Weakness (Right arm is feeling weak. Lays on that arm. ); Back Pain (Lower back pain somewhat. She fell while chasing her dog about a wk or so. ); Fatigue (Feeling like she is not focusing. No motivation. ); Dental Problem (Has a chipped tooth on her upper left side. Would like antibiotic. Face is puffy per pt) Social History Tobacco Use Types Packs/Day Years [...] Sign Reading Time Taken Comments Blood Pressure 108/70 03/11/2023 2:05 PM CDT Pulse 98 03/11/2023 2:05 PM CDT Temperature 36.7 ??C (98.1 ??F) 03/11/2023 2:05 PM CD T Respiratory Rate 15 03/11/2023 2:05 PM CDT Oxygen Saturation 98% 03/11/2023 2:05 PM CDT Inhaled Oxygen Concentration - - Weight 67.5 kg (148 lb 12.8 oz) 03/11/2023 2:05 PM CDT Height 162.6 cm (5' 4 ) 03/11/2023 2:05 PM CDT Body Mass Index 25.54 03/11/2023 2:05 PM CDT documented in this encounter Progress Notes * Demond Nieto PA-C - 03/11/2023 2:20 PM CDT Encounter Reason Leg Weakness (Her balance is off. Her left leg is worse), Arm Weakness (Right arm is feeling weak. Lays on that arm. ), Back Pain (Lower back pain somewhat. She fell while chasing her dog about a wk or so. ), Fatigue (Feeling like she is not focusing. No motivation. ), and Dental Problem (Has a chipped tooth on her upper left side. Would like antibiotic. Face is puffy per pt) History of Present Illness: Acute-patient has noted pain in her teeth for the past month. Over the past couple days she has noted swelling of her cheek and is concerned for infection. She chipped the tooth about a month ago andwent to the dentist who stated it was about thousand dollars to get this fixed. She states she doesnot have that money at this time. She does have an allergy to amoxicillin, but has used Keflex in past with significant improvement. Denies fevers or chills. Back pain-patient had a fall couple weeks ago which she thinks did something to her lower back. Since then it has not felt right. She complains of left leg weakness since the fall. She has never donephysical therapy, but is very interested in physical therapy. She also complains of right arm weakness that has progressively worsened. She denies any fatigable weakness. Denies any family history ofmyasthenia gravis, but does have a family history of Bernice Gehrig's disease. She is concerned whetheror not she has anemia, thyroid disorder or something else going on contributing to this weakness. She does note that her Concerta was changed from 80 mg twice daily to the extended release 36 mg daily. She is wondering if this is contributing to her mental fogginess, fatigue. She states that she can sleep all day. She has been on Vyvanse in the past with success. The pharmacist recommended that she try Adderall. She also notes steadily worsening weight gain. She does note that she had a complete hysterectomy, but does have her ovaries. She is currently on estradiol to help with postmenopausalsymptoms. She does complain of chronic neck pain. She states that it is primarily her right arm that is steadily getting weaker. ROS: Review of Systems Constitutional: Positive for malaise/fatigue. HENT: Negative. Eyes: Negative. Respiratory: Negative. Cardiovascular: Negative. Gastrointestinal: Negative. Genitourinary: Negative. Musculoskeletal: Positive for back pain, falls and neck pain. Skin: Negative. Neurological: Positive for tingling, focal weakness and weakness. Negative for dizziness and headaches. Medications: Current Outpatient Medications: busPIRone (BUSPAR) 5 MG tablet, Take 1 tablet (5 mg total) by mouth 2 (two) times daily., Disp: 60 tablet, Rfl: 2 cephALEXin (KEFLEX) 500 MG capsule, Take 1 capsule (500 mg total) by mouth 3 (three) times daily for 10 days., Disp: 30 capsule, Rfl: 0 estradiol 1 MG tablet, Take 1 tablet (1 mg total) by mouth daily., Disp: , Rfl: HYDROcodone-acetaminophen (NORCO) 5-325 MG tablet, Take 1 tablet by mouth every 6 (six) hours as needed for Pain. Indications: Acute Pain < 3 Day Supply, Disp: 12 tablet, Rfl: 0 ibuprofen (MOTRIN) 800 MG tablet, Take 1 tablet (800 mg total) by mouth every 8 (eight) hours as needed for Pain., Disp: 30 tablet, Rfl: 1 methylphenidate CR (CONCERTA) 36 MG tablet, Take [...] taking: Reported on 12/19/2022), Disp: , Rfl: cephALEXin (KEFLEX) 500 MG capsule, Take 1 capsule (500 mg total) by mouth 3 (three) times daily. (Patient not taking: Reported on 03/11/2023), Disp: 21 capsule, Rfl: 0 ketoconazole (NIZORAL) 2 % cream, Apply topically 2 (two) times daily. (Patient not taking: Reported on 03/11/2023), Disp: 30 g, Rfl: 0 methylPREDNISolone, JAYASHREE, (MEDROL DOSEPAK) 4 MG tablet, 6 TABLETS ON DAY ONE, 5 TABLETS DAY TWO, 4 TABLETS DAY THREE, 3 TABLETS DAY FOUR, 2 TABLETS DAY FIVE, AND 1 TABLET DAY SIX (Patient not taking: Reported on 03/11/2023), Disp: 1 each, Rfl: 0 Review of patient's allergies indicates: Allergen Reactions Amoxil [Amoxicillin] Rash Past Medical History: Diagnosis Date ADHD (attention deficit hyperactivity disorder) Allergic rhinitis 05/10/2018 Anxiety Bowel obstruction (HHS/HCC) ([facility]) Ulcerative (chronic) enterocolitis, other complication (HHS/HCC) ([facility]) Ulcerative colitis (HHS/HCC) ([facility]) 04/15/2018 Ulcerative colitis (HHS/HCC) ([facility]) Past Surgical History: Procedure Laterality Date APPENDECTOMY APPENDECTOMY BREAST LUMPECTOMY Left HERNIA REPAIR HYSTERECTOMY Social History Tobacco Use Smoking status: Light Smoker Packs/day: 0.00 Years: 15.00 Pack years: 0.00 Types: Cigarettes Smokeless tobacco: Never Tobacco comments: cut back alot Vaping Use Vaping Use: Every day Substances: Nicotine, Flavoring Devices: Disposable, Pre-filled or refillable cartridge Substance Use Topics Alcohol use: Yes Comment: occ Drug use: No Family History Problem Relation Name Age of Onset Heart Mother Heart Father Heart Paternal Grandfather Aneurysm Paternal Grandfather Cancer Paternal Grandfather colon Family Status Relation Name Status Mother Alive Father Alive PGF Physical Exam Vitals reviewed. Constitutional: General: She is not in acute distress. Appearance: Normal appearance. She is not ill-appearing or toxic-appearing. HENT: Head: Normocephalic and atraumatic. Right Ear: External ear normal. Left Ear: External ear normal. Nose: Nose normal. Mouth/Throat: Mucous membranes are moist. No oropharyngeal exudate. Comments: Tooth infection noted left upper molar Eyes: Extraocular Movements: Extraocular movements intact. Conjunctiva/sclera: Conjunctivae normal. Cardiovascular: Rate and Rhythm: Normal rate and regular rhythm. Heart sounds: Normal heart sounds. No murmur heard. Pulmonary: Effort: Pulmonary effort is normal. No respiratory distress. Breath sounds: Normal breath sounds. Abdominal: Palpations: Abdomen is soft. Tenderness: There is no abdominal tenderness. Musculoskeletal: General: Normal range of motion. Cervical back: Neck supple. No rigidity or tenderness. Comments: Generalized weakness noted of all 4 extremities. Right upper extremity greater than left upper extremity. Left lower extremity greater than right lower extremity. Negative straight leg raise bilaterally. Gait normal. Lymphadenopathy: Cervical: No cervical adenopathy. Skin: General: Skin is warm. Findings: No rash. Neurological: General: No focal deficit present. Mental Status: She is alert and oriented to person, place, and time. Motor: Weakness present. Gait: Gait normal. Psychiatric: Mood and Affect: Mood normal. Behavior: Behavior normal. Thought Content: Thought content normal. Judgment: Judgment normal. Filed Vitals: 03/11/23 1405 BP: 108/70 Pulse: 98 Resp: 15 Temp: 98.1 ??F (36.7 ??C) TempSrc: Temporal SpO2: 98% Weight: 67.5 kg (148 lb 12.8 oz) Height: 5' 4 (1.626 m) Assessment Encounter Diagnose(s) ICD-10-CM SNOMED CT(R) 1. Generalized weakness R53.1 ASTHENIA COMPREHENSIVE METABOLIC PANEL Ambulatory referral to Physical Therapy 2. Right arm weakness R29.898 WEAKNESS OF RIGHT UPPER LIMB Ambulatory referral to Physical Therapy 3. Other fatigue R53.83 FATIGUE COMPREHENSIVE METABOLIC PANEL 4. Attention deficit hyperactivity disorder (ADHD), combined type F90.2 ATTENTION DEFICIT HYPERACTIVITY DISORDER, COMBINED TYPE 5. Tooth infection K04.7 INFECTION OF TOOTH cephALEXin (KEFLEX) 500 MG capsule 6. Left leg weakness R29.898 WEAKNESS OF LEFT LOWER LIMB Ambulatory referral to Physical Therapy 7. Neck pain M54.2 NECK PAIN Ambulatory referral to Physical Therapy 8. Acute bilateral low back pain with left-sided sciatica M54.42 ACUTE BACK PAIN WITH SCIATICA Ambulatory referral to Physical Therapy XR LUMB SPINE 3V 9. Screening for deficiency anemia Z13.0 PATIENT ENCOUNTER STATUS CBC W/DIFF AUTOMATED IRON SAT PANEL (IRON,IBC,%SAT) VITAMIN B12 / FOLATE FERRITIN 10. Thyroid disorder screening Z13.29 PATIENT ENCOUNTER STATUS TSH W/REFLEX 11. Vitamin D deficiency E55.9 VITAMIN D DEFICIENCY VITAMIN D, 25 OH 12. Tooth pain K08.89 TOOTHACHE ibuprofen (MOTRIN) 800 MG tablet HYDROcodone-acetaminophen (NORCO) 5-325 MG tablet Recommendations and Plan: 1. Generalized weakness Patient complains of primarily right upper extremity and left lower extremity weakness. However upon checking strength all 4 of her extremities were weak. We will set her up with physical therapy fortheir assessment. Discussed if she starts to have fatigable weakness encouraged her to contact the office promptly. I would definitely consider testing for myasthenia gravis at that point. We will also check basic labs to make sure there is no B12 deficiency or vitamin deficiency that could lead to this. She currently denies any respiratory symptoms. - COMPREHENSIVE METABOLIC PANEL; Future - Ambulatory referral to Physical Therapy 2. Right arm weakness - Ambulatory referral to Physical Therapy 3. Other fatigue We will check CBC, CMP, thyroid, B12, iron, ferritin, vitamin D - COMPREHENSIVE METABOLIC PANEL; Future 4. Attention deficit hyperactivity disorder (ADHD), combined type Patient is concerned that the Concerta is contributing to some of her symptoms. She discussed with the pharmacy possibly switching the Concerta out for Adderall. Discussed with patient she would needto collaborate with her PCP for this type of medication management. I will send a note to her PCP regarding her concerns. 5. Tooth infection Recommend contacting dentist to see if there is any payment plan or alternative treatment. Keflex was sent to the pharmacy to cover any bacterial infection, as well as ibuprofen to help cut down on the swelling. Encouraged her to use heat and/or ice to the region to see if this would help. - cephALEXin (KEFLEX) 500 MG capsule; Take 1 capsule (500 mg total) by mouth 3 (three) times daily for 10 days. Dispense: 30 capsule; Refill: 0 6. Left leg weakness Notices left leg weakness after having fall. Due to this we will check an x-ray of the lumbar spine. We will set her up with physical therapy and will also assess blood work. If symptoms progressively worsen would consider MRI of lumbar spine - Ambulatory referral to Physical Therapy 7. Neck pain We will set her up with physical therapy for the neck. With the generalized weakness noted would consider MRI of the neck if symptoms continue to worsen. She currently denies any bowel or bladder incontinence or walking difficulties so no additional testing was ordered today. - Ambulatory referral to Physical Therapy 8. Acute bilateral low back pain with left-sided sciatica We will check an x-ray due to the recent fall. We will set up with physical therapy. Recommend topical agents such as lidocaine patches, heat, ice, Bengay, IcyHot. Ibuprofen was sent to the pharmacy to be used as needed for severe pain. Recommend contacting the office promptly if any bowel or bladder dysfunction develop. - Ambulatory referral to Physical Therapy - XR LUMB SPINE 3V; Future 9. Screening for deficiency anemia - CBC W/DIFF AUTOMATED; Future - IRON SAT PANEL (IRON,IBC,%SAT); Future - VITAMIN B12 / FOLATE; Future - FERRITIN; Future 10. Thyroid disorder screening - TSH W/REFLEX; Future 11. Vitamin D deficiency - VITAMIN D, 25 OH; Future 12. Tooth pain - ibuprofen (MOTRIN) 800 MG tablet; Take 1 tablet (800 mg total) by mouth every 8 (eight) hours as needed for Pain. Dispense: 30 tablet; Refill: 1 - HYDROcodone-acetaminophen (NORCO) 5-325 MG tablet; Take 1 tablet by mouth every 6 (six) hours as needed for Pain. Indications: Acute Pain < 3 Day Supply Dispense: 12 tablet; Refill: 0 Follow up prn. Return to clinic with new, persistent, or worsening symptoms. Karlie Ivory is in agreement to and verbalized understanding of treatment plan with no further questions at this time. I spent 40 minutes minutes obtaining history and performing exam. Time was also spent either ordering medications, tests, or ordering procedures. Time was also spent documenting the medical record, reviewing results, and communicating test results to the patient. Patient should follow annual wellness exams recommended for age and sex of patient. Items to consider but not limited included yearly annual fasting labs, colonscopy or cologuard when indicated. PSA and prostate for males. Mammogram and female exam for females, Portions of this note were dictated using [employer] speech recognition software. Occasional wrong wordor sound-alike substitutions may have occurred due to the inherent limitations of voice recognition software. Please read the chart carefully and recognize, using context, where the substitutions may have occurred. Demond Nieto PA-C, evaluated and Dr Anil Philip reviewed and agrees with plan. 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 Office Visit [facility] Family Medicine - [place] [address] [place], [place] [id number] Samantha Sanders MD [address] [place], [place] [phone] Scheduled Referrals Name Type Priority Associated Diagnoses Orde r Schedule Ambulatory referral to Physical Therapy Referral Routine Generalized weakness Right arm weakness Left leg weakness Neck pain Acute bilateral low back pain with left-sided sciatica Ordered: 03/11/2023 documented as of this encounter Results * XR LUMB SPINE [...] Interpreted By: Carlos Guzman, 03/12/2023 4:32 AM us Demond Nieto PA-C GENERAL IMAGING Final Result * FERRITIN (03/11/2023 3:20 PM CDT) FERRITIN 95.0 8.0 - 388.0 NG/ML 03/11/2023 7:[address] [facility] 03/11/2023 3:20 PM CDT us Demond Nieto PA-C LABORATORY Final Result [facility] [address] [place] [address], * VITAMIN B12 / FOLATE (03/11/2023 3:20 PM CDT) VITAMIN B12 S/P/B 612 193 - 986 PG/ML 03/11/2023 7:[address] [facility] FOLATE 11.0 8.6 - 58.9 NG/ML 03/11/2023 7:[address] [facility] 03/11/2023 3:20 PM CDT Demond Nieto PA-C LABORATORY Final Result Performing Organization Address [facility] de Phone Number [facility] [address] [place] [address], * IRON SAT PANEL (IRON,IBC,%SAT) (03/11/2023 3:20 PM CDT) IRON 95 50 - 170 MCG/DL 03/11/2023 6:[address] [facility] IRON BINDING CAPACITY 313 250 - 450 MCG/DL 03/11/2023 6:[address] [facility] IRON SATURATION 30 20 - 55 % 6:[address] [facility] 03/11/2023 3:20 PM CDT Demodn Nieto PA-C LABORATORY Final Result Performing Organization Address [facility] de Phone Number [facility] [address] [place] [address], * VITAMIN D, 25 OH (03/11/2023 3:20 PM CDT) VITAMIN D 25 HYDROXY S/P/B 41 30 - 100 NG/ML 03/11/2023 7:[address] [facility] Comment: ? INTERPRETATION ? DEFICIENT ??<20 ? INSUFFICIENT 20-29 ?SUFFICIENT 30-100 03/11/2023 3:20 PM CDT Demond Nieto PA-C LABORATORY Final Result Performing Organization Address [facility] Co de Phone Number [facility] [address] [place] [address], [place] [phone] * TSH W/REFLEX (03/11/2023 3:20 PM CDT) TSH 1.138 0.358 - 3.74 uIU/ML 03/11/2023 7:[address] [facility] Comment: HIGH DOSES OF BIOTIN MAY INTERFERE WITH THIS TEST RESULT. CORRELATION TO CLINICAL HISTORY AND PRESENTATION RECOMMENDED. FREE T4 NOT INDICATED 03/11/2023 3:20 PM CDT Demond Nieto PA-C LABORATORY Final Result [facility] [address] [place] [address], [place] [phone] * (ABNORMAL) COMPREHENSIVE METABOLIC PANEL (03/11/2023 3:20 PM CDT) Pathologist [facility] GLUCOSE 102(H) 70 - 99 MG/DL 03/11/2023 7:[address] [facility] BUN 13 7 - 18 MG/DL 03/11/2023 7:[address] [facility] CREATININE S/P/B 0.79 0.55 - 1.02 MG/DL 03/11/2023 7:[address] [facility] SODIUM S/P/B 140 136 - 145 MMOL/L 03/11/2023 7:[address] [facility] POTASSIUM S/P/B 4.7 3.5 - 5.1 MMOL/L 03/11/2023 7:[address] [facility] CHLORIDE S/P/B 103 100 - 108 MMOL/L 03/11/2023 7:[address] [facility] CO2 29.2 21 - 32 MMOL/L 03/11/2023 7:12 PM [facility] CALCIUM S/P/B 8.9 8.5 - 10.1 MG/DL 03/11/2023 7:12 PM [facility] BILIRUBIN TOTAL S/P/B 0.4 0.2 - 1.2 MG/DL 03/11/2023 7:12 PM [facility] TOTAL PROTEIN S/P/B 7.3 6.4 - 8.2 G/DL 03/11/2023 7:12 PM [facility] ALBUMIN S/P/B 4.2 3.4 - 5.0 G/DL 03/11/2023 7:12 PM [facility] AST 14(L) 15 - 37 U/L 03/11/2023 7:12 PM [facility] ALT 19 14 - 55 U/L 03/11/2023 7:12 PM [facility] ALKALINE PHOSPHATASE S/P/B 82 50 - 136 U/L 03/11/2023 7:12 PM [facility] ANION GAP 7.8 5 - 15 MMOL/L 03/11/2023 7:12 PM [facility] BUN CREATININE RATIO 16.5 6 - 26 03/11/2023 7:12 PM [facility] A/G RATIO 1.4 1.0 - 2.0 RATIO 03/11/2023 7:12 PM [facility] GFR ESTIMATE >90 >90 ML/MIN/1.7 3 M2 03/11/2023 7:12 PM [facility] Comment: NOTE: eGFR is not calculated for patients <18 years of age. This is an estimated GFR calculation using the new CKD EPI creatinine equation without race and so does not require a correction factor for race. This estimated GFR should not be used for calculating drug doses. 03/11/2023 3:20 PM CDT us Demond Nieto PA-C LABORATORY Final Result [facility] [address] [place] [address], [place] [phone] * (ABNORMAL) CBC W/DIFF AUTOMATED (03/11/2023 3:20 PM CDT) WBC 11.89(H) 4.4 - 11.0 x10'3/uL 03/11/2023 6:[address] [facility] RBC 4.71 4.50 - 5.10 x10'6/uL 03/11/2023 6:[address] [facility] HGB 14.7 12.3 - 15.3 G/DL 03/11/2023 6:[address] [facility] HCT 44.6 35.9 - 44.6 % 03/11/2023 6:[address] [facility] MCV 94.7 80.0 - 96.0 FL 03/11/2023 6:[address] [facility] MCH 31.2(H) 25.3 - 30.9 PG 03/11/2023 6:[address] [facility] MCHC 33.0 31.0 - 34.1 G/DL 03/11/2023 6:[address] [facility] RDW 12.4 12.4 - 15.1 % 03/11/2023 6:[address] [facility] PLT 413(H) 151 - 353 x10'3/uL 03/11/2023 6:[address] [facility] MPV 10.0 9.6 - 12.0 FL 03/11/2023 6:[address] [facility] RBC MORPHOLOGY NORMAL 03/11/2023 6:[address] [facility] PLT MORPH. NORMAL 03/11/2023 6:[address] [facility] WBC MORPHOLOGY NORMAL 03/11/2023 6:[address] [facility] LYMPHOCYTES % 21.3 15.8 - 45.0 % 03/11/2023 6:[address] [facility] NEUTROPHILS % 72.3(H) 42.1 - 71.9 % 03/11/2023 6:[address] [facility] MONOCYTES % 5.2(L) 5.7 - 12.5 % 03/11/2023 6:[address] [facility] EOSINOPHILS 0.2 0.0 - 5.6 % 03/11/2023 6:[address] [facility] BASOPHILS 0.5 0.0 - 1.3 % 03/11/2023 6:[address] [facility] ABS. NEUTROPHILS 8.60(H) 1.40 - 6.00 x10'3/uL 03/11/2023 6:[address] [facility] IMMATURE GRANS % 0.5 0.0 - 0.5 % 03/11/2023 6:[address] [facility] ABS. LYMPHOCYTES 2.53 0.80 - 4.70 x10'3/uL 03/11/2023 6:[address] [facility] 03/11/2023 3:20 PM CDT us Demond Nieto PA-C LABORATORY Final Result [facility] [address] [place] [address], [place] [phone] documented in this encounter Visit Diagnoses Diagnosis Generalized weakness- Primary Other malaise and fatigue Right arm weakness Other musculoskeletal symptoms referable to limbs Other fatigue Attention deficit hyperactivity disorder (ADHD), combined type Tooth infection Acute apical periodontitis of pulpal origin Left leg weakness Other musculoskeletal symptoms referable to limbs Neck pain Cervicalgia Acute bilateral low back pain with left-sided sciatica Screening for deficiency anemia Screening for other and unspecified deficiency anemia Thyroid disorder screening Screening for thyroid disorder Vitamin D deficiency Unspecified vitamin D deficiency Tooth pain Unspecified disorder of the teeth and supporting structures Acute bilateral low back pain with left-sided sciatica documented in this encounter Additional Health Concerns Assessment Noted Time PHQ-9 Depression Total Score: 0 04/21/20 22 2:28 PM CDT documented as of this encounter Care Teams Director Of Strategic Initiatives Relationship Specialty [place] [address] [facility]. [address] [place] [id number] PCP - General FAMILY PRACTICE 04/21/22 03/03/24 documented as of this encounter
--- OUTSIDE RECORDS SUMMARY | 2024-07-24 00:45 | XMS_ITS | Encounter Summary ---
Author Organization [facility] Address [address] [place] [address]. [place], [place] [id number] [place] [address] Care Team Providers Care Die Sinker Apprentice Name Role Phone Charley Cabrera MD Primary Care Provider [phone] Reason for Visit * Reason Comments Follow Up Encounter Details Date Type Department Care Team (Late st Contact Info) Description 10/05/2023 1:00 PM CDT Office Visit [facility] Medical Group Family & Internal Medicine [address] [address] Gary Marrero, DORINA [address] [facility] [place] [address] Follow Up Social History Tobacco Use Types [...] Sign Reading Time Taken Comments Blood Pressure 111/80 10/05/2023 1:02 PM CDT Pulse 81 10/05/2023 1:02 PM CDT Temperature 36.6 ??C (97.9 ??F) 10/05/2023 1:02 PM CD T Respiratory Rate 18 10/05/2023 1:02 PM CDT Oxygen Saturation 100% 10/05/2023 1:02 PM CDT Inhaled Oxygen Concentration - - Weight 66.2 kg (146 lb) 10/05/2023 1:02 PM CDT Height 162.6 cm (5' 4 ) 10/05/2023 1:02 PM CDT Body Mass Index 25.06 10/05/2023 1:02 PM CDT documented in this encounter Progress Notes * Gary Marrero NP - 10/05/2023 1:00 PM CDTAddended by: GARY MARRERO on: 10/05/2023 04:39 PM Modules accepted: Orders * Gary Marrero NP - 10/05/2023 1:00 PM CDT Reason for Visit: Follow Up History of Present Illness: Karlie Ivory is a 48-year-old female patient who came into clinic for follow up evaluationon her ADHD and Anxiety. Patient has been controlled well with her Alprazolam 0.25mg PRN for severeanxiety onset and generic Adderall 30mg tabs. Patient did state she doesn't need such a strong Adderall. She would prefer to just cut back to 10mg in the AM. ROS: Review of Systems Constitutional: Negative. HENT: Negative. Eyes: Negative. Respiratory: Negative. Cardiovascular: Negative. Gastrointestinal: Negative. Endocrine: Negative. Genitourinary: Negative. Musculoskeletal: Negative. Allergic/Immunologic: Negative. Neurological: Negative. Hematological: Negative. Psychiatric/Behavioral: Negative. Medications: Current Outpatient Medications: ALPRAZolam (XANAX) 0.25 MG tablet, Take 1 tablet (0.25 mg total) by mouth daily as needed for Anxiety (Panic attack onset)., Disp: 30 tablet, Rfl: 2 amphetamine-dextroamphetamine (ADDERALL) 10 MG tablet, Take 1 tablet (10 mg total) by mouth daily for 30 days., Disp: 30 tablet, Rfl: 0 amphetamine-dextroamphetamine (ADDERALL) 30 MG tablet, Take 1 tablet (30 mg total) by mouth daily.,Disp: 30 tablet, Rfl: 0 estradiol 1 MG tablet, Take 2 tablets [...] disorder) Allergic rhinitis 05/10/2018 Anxiety Bowel obstruction ([facility]) COVID-19 Strep throat Ulcerative (chronic) enterocolitis, other complication ([facility]) ([facility]) Ulcerative colitis ([facility]) 04/15/2018 Ulcerative colitis ([facility]) Past Surgical History: Procedure Laterality Date [...] Mother Alive Father Alive PGF Filed Vitals: 10/05/23 1302 BP: 111/80 Pulse: 81 Resp: 18 Temp: 97.9 ??F (36.6 ??C) TempSrc: Temporal SpO2: 100% Weight: 66.2 kg (146 lb) Height: 1.626 m (5' 4 ) Physical Exam: Physical Exam HENT: Head: Normocephalic. Nose: Nose normal. Mouth/Throat: Pharynx: Oropharynx is clear. Eyes: Pupils: Pupils are equal, round, and reactive to light. Cardiovascular: Rate and Rhythm: Normal rate and regular rhythm. Pulmonary: Effort: Pulmonary effort is normal. Breath sounds: Normal breath sounds. Abdominal: General: Bowel sounds are normal. Musculoskeletal: General: Normal range of motion. Skin: General: Skin is warm and dry. Neurological: General: No focal deficit present. Mental Status: She is alert and oriented to person, place, and time. Psychiatric: Mood and Affect: Mood normal. Behavior: Behavior normal. Diagnoses/Impression: Karlie was seen today for follow up. Plan will be to lower Adderall immediate release tab down to 10mg daily for in the morning. Patient stated 30mg was too much. Patient was not ready for a refill of Alprazolam yet. She is only taking medication as needed. Diagnoses and all orders for this visit: Seasonal allergies Attention deficit hyperactivity disorder (ADHD), combined type - amphetamine-dextroamphetamine (ADDERALL) 10 MG tablet; Take 1 tablet (10 mg total) by mouth dailyfor 30 days. Generalized anxiety disorder - Continue taking Alprazolam 0.25mg tab PRN. Recommendations and Plan: Refill sent to pharmacy for adderall 10mg taken daily AM. GARY MARRERO NP documented in this encounter Plan of Treatment Upcoming Encounters Date Type Department Care Team (Late Contact Info) Description 09/08/2024 10:10 AM PC ANALYST Office Visit [facility] Medical Group Family Medicine - [place] [address] [place] [address] Samantha Sanders MD [address] [place] [phone] documented as of this encounter Visit Diagnoses Diagnosis Seasonal allergies- Primary Allergic rhinitis, cause unspecified Attention deficit hyperactivity disorder (ADHD), combined type Generalized anxiety disorder documented in this encounter Additional Health Concerns Assessment Noted Time PHQ-9 Depression Total Score: 14 06/17/ 023 1:30 PM PC ANALYST documented as of this encounter Care Teams Die Sinker Apprentice Relationship Specialty [place] [address] [facility]. [address] [place] [address] PCP - General FAMILY PRACTICE 04/21/22 03/03/24 documented as of this encounter
--- OUTSIDE RECORDS SUMMARY | 2024-07-24 00:45 | XMS_ITS | Encounter Summary ---
Author Organization [facility] Address [address] [place] [address]. [place], [place] [address] [place] [address] Care Team Providers Care Environmental Studies Professor Name Role Phone Charley Cabrera MD Primary Care Provider [phone] Encounter Details Date Type Department Care Team (Latest Contact Info) Description 06/17/2023 Travel Social History Tobacco Use Types Packs/Day [...] st Contact Info) Description 09/08/2024 10:10 AM CRAWLER DRAGLINE OPERATOR Office Visit [facility] Family Medicine - [place] [address] [place] [phone] Samantha Sanders MD [address] [place], [place] [phone] documented as of this encounter Visit Diagnoses Not on filedocumented in this encounter Additional Health Concerns Infection Onset Date Last Indicated Resolved Time COVID-19 Confirmed 05/25/2023 05/25/2023 12:32 AM CRAWLER DRAGLINE OPERATOR Assessment Noted Time PHQ-9 Depression Total Score: 14 023 1:30 PM CRAWLER DRAGLINE OPERATOR documented as of this encounter Care Teams Environmental Studies Professor Relationship Specialty [place] [address] [facility]. [address] [place] [address] PCP - General FAMILY PRACTICE 04/21/22 03/03/24 documented as of this encounter
--- OUTSIDE RECORDS SUMMARY | 2024-07-24 00:46 | XMS_ITS | Encounter Summary ---
Author Organization [facility] Address [address] [place] [address]. [place], [place] [address] [place] [address] Care Team Providers Care Blood Tester Name Role Phone Charley Cabrera MD Primary Care Provider [phone] Encounter Details Date Type Department Care Team (Late st Contact Info) Description 05/16/2022 Orders Only [facility] Family & Internal Medicine - [place] [id number] [place] [address] Chraley Cabrera [place] [id number] [place] [address]. [address] [place] [address] Social History Tobacco Use Types [...] suspected to have Coronavirus/COVID-19? No / Unsure 04/21/2022 2:10 PM CDT documented as of this encounter Plan of Treatment Upcoming Encounters Date Type Department Care Team (Late st Contact Info) Description 09/08/2024 10:10 AM CREDIT REFERENCE CLERK Office Visit [facility] Family Medicine - [place] [address] [place] [address] Samantha Sanders MD [address] [place], [place] [phone] documented as of this encounter Procedures Procedure Name Priority Date/Time Associated Diagnosis Comments TEST AUTHORIZATION 05/16/2022 10 :08 AM CDT LIPID PANEL 05/16/2022 10:08 AM CDT documented in this encounter Results * TEST AUTHORIZATION (05/16/2022 10:08 AM CDT) REPORT STATUS COMMENT [facility] 1 Comment: Ambcaroline Abbrev LP Default Ambig Abbrev LP Default A hand-written panel/profile was received from your office. In accordance with the [facility] Ambiguous Test Code Policy dated January 2003, we have completed your order by using the closest currently or formerly recognized AMA panel. ??We have assigned Lipid Panel, Test Code #127475 to this request. If this is not the testing you wished to receive on this specimen, please contact the [facility] Client Inquiry/Technical Services Department to clarify the test order. ??We appreciate your business. 05/16/2022 10:0 8 AM CDT 05/16/2022 Narrative [facility] - 05/17/2022 8:08 AM CDT Performed at: ??01 - [facility], [place], [place] ??[id number] Erp Specialist: Elver Bradley PhD, Phone: ??[phone] us Charley Cabrera MD LABORATORY Final Result [facility] [address] [place] [address] [facility] 1 * (ABNORMAL) LIPID PANEL (05/16/2022 10:08 AM CDT) CHOLESTEROL 247(H) 100 - 199 mg/dL [facility] 1 TRIGLYCERIDES 148 0 - 149 mg/dL [facility] 1 HDL 47 >39 mg/dL [facility] 1 VLDL CALCULATION 27 5 - 40 mg/dL [facility] 1 LDL (CALCULATED) 173(H) 0 - 99 mg/dL [facility] 1 05/16/2022 10:0 8 AM CDT 05/16/2022 Narrative [facility] - 05/17/2022 8:08 AM CDT Performed at: ??01 - [facility] [address] ??[id number] Erp Specialist: Elver Bradley PhD, Phone: ??[phone] Charley Cabrera MD LABORATORY Final Result [facility] [address] [place] [address] [facility] 1 documented in this encounter Visit Diagnoses Not on filedocumented in this encounter Additional Health Concerns Assessment Noted Time PHQ-9 Depression Total Score: 0 04/21/20 22 2:28 PM CDT documented as of this encounter Care Teams Blood Tester Relationship Specialty [place] [address] [address] [place] [address] PCP - General FAMILY PRACTICE 04/21/22 03/03/24 documented as of this encounter
--- OUTSIDE RECORDS SUMMARY | 2024-07-24 00:46 | XMS_ITS | Encounter Summary ---
Author Organization [facility] Address [address] [place] [address]. [place] [address] Care Team Providers Care Monorail Helper Name Role Phone Charley Cabrera MD Primary Care Provider [phone] Reason for Visit * Reason Comments Lab (SCAN) Encounter Details Date Type Department Care Team (Latest Contact Info) Description 05/16/2022 Scan [facility] Scanned, Doc Med Group Lab (SCAN) Social History Tobacco Use Types Packs/Day [...] suspected to have Coronavirus/COVID-19? No / Unsure 05/23/2022 3:04 PM CDT documented as of this encounter Plan of Treatment Upcoming Encounters Date Type Department Care Team ( Contact Info) Description 09/08/2024 10:10 AM NEW CAR MAKE READY MECHANIC Office Visit [facility] Group Family Medicine - [place] [address] [place] [address] Samantha Sanders MD [address] [place] [address] documented as of this encounter Procedures Procedure Name Priority Date/Time Associated Diagnosis Comments OUTSIDE LAB (SCAN ORDER) 05/16/2022 documented in this encounter Results * OUTSIDE LAB (SCAN) (05/16/2022) 05/16/2022 us Doc Med Group Scanned SCANNING Final Resu lt documented in this encounter Visit Diagnoses Not on filedocumented in this encounter Additional Health Concerns Assessment Noted Time PHQ-9 Depression Total Score: 0 04/21/20 22 2:28 PM CDT documented as of this encounter Care Teams Monorail Helper Relationship Specialty [place] [address] [facility] [address] [place] [address] PCP - General FAMILY PRACTICE 04/21/22 03/03/24 documented as of this encounter
--- OUTSIDE RECORDS SUMMARY | 2024-07-24 00:46 | XMS_ITS | Encounter Summary ---
Author Organization [facility] Address [address] [place] [address]. [place], [place] [address] [place], [place] [id number] Care Team Providers Care Otr Truck Driver Name Role Phone Charley Cabrera MD Primary Care Provider [phone] Reason for Visit * Reason Comments COVID-19 Tested pos for coivd , cough, headache, body aches, Encounter Details Date Type Department Care Team (Late st Contact Info) Description 07/11/2022 1:40 PM WHARF BUILDER Telemedicine [facility] Medical Group Family & Internal Medicine [address] [address] Charley Cabrera MD [address] [place] [address]. [address] [place] [address] COVID-19 (Tested pos for coivd, cough, headache, body aches, ) Social History Tobacco Use Types Packs/Day [...] suspected to have Coronavirus/COVID-19? No / Unsure 07/11/2022 12:46 PM WHARF BUILDER documented as of this encounter Progress Notes * Charley Cabrera MD - 07/11/2022 1:40 PM CST Reason for Visit: COVID-19 (Tested pos for coivd, cough, headache, body aches, ) History of Present Illness: HPI Miss Karlie Ivory ??is a pleasant 47-year-old female with past medical history but not limited to anxiety, depression, ADHD, hyperlipidemia, chronic insomnia , status postlumpectomy, hysterectomy secondary to dysmenorrhea, ulcerative colitis in remission was seen today via video visit for COVID-19 infection. I introduced and identified myself, received verbal consent from the patient to proceed with this video visit and made the patient aware that the same confidentiality and records and information manager practices apply. The patient joined the video visit from Home. I completed the virtual visit from Office. The following clinical staff helped with this visit MA: sania. Total Time Spent in Minutes: Symptoms started- 07/10/2022. She complains of sinus congestion and dry cough. Getting worse. Chills, no fever Tested positive for COVID at home 07/10 Sick contacts- she has had some patients sick No other concerns for today ROS: Review of Systems Constitutional: Positive for activity change. Negative for appetite change, chills and fever. HENT: Positive for congestion. Negative for ear discharge, facial swelling, hearing loss, nosebleeds, postnasal drip, rhinorrhea and sinus pressure. Eyes: Negative for visual disturbance. Respiratory: Positive for cough. Negative for shortness of breath and wheezing. Cardiovascular: Negative for chest pain, palpitations and leg swelling. Gastrointestinal: Negative for abdominal pain, constipation, diarrhea, heartburn, nausea and vomiting. Endocrine: Negative for polyuria. Genitourinary: Negative for dysuria, hematuria and pelvic pain. Musculoskeletal: Negative for arthralgias. Neurological: Positive for dizziness and headaches. Negative for syncope. Psychiatric/Behavioral: Negative for behavioral problems. Medications: Current Outpatient Medications: ??? lisdexamfetamine (VYVANSE) 40 MG capsule, Take 1 capsule (40 mg total) by mouth every morning.,Disp: 15 capsule, Rfl: 0 ? ? nirmatrelvir & ritonavir 300/100 (PAXLOVID) 20 x 150 MG & 10 x 100MG tablet pack, Take TWO nirmatrelvir 150 mg tablets along with ONE ritonavir 100 mg tablet, with all three tablets takentogether, twice daily for 5 days. May take with or without food. Swallow tablets whole. Do not chew, break or crush., Disp: 30 each, Rfl: 0 ??? azelastine (AZELASTINE) 0.1 % [...] 30 tablet, Rfl: 1 ??? busPIRone (BUSPAR) 7.5 MG tablet, Take 7.5 mg by mouth 2 (two) times daily., Disp: , Rfl: ??? estradiol (VIVELLE-DOT) 0.025 MG/24HR, , Disp: , Rfl: ??? estradiol 1 MG tablet, Take 1 mg by mouth daily., Disp: , Rfl: ??? loratadine (CLARITIN) 10 MG tablet, Take 1 tablet (10 mg total) by mouth daily., Disp: 30 tablet, Rfl: 3 ??? Multiple Vitamin (MULTIVITAMIN ADULT OR), Take by mouth daily. , Disp: , Rfl: ??? naltrexone (DEPADE) 50 MG tablet, Take 50 mg by mouth daily., Disp: , Rfl: ??? pravastatin (PRAVACHOL) 40 MG tablet, Take 1 tablet (40 mg total) by mouth nightly at bedtime.,Disp: 30 tablet, Rfl: 2 ??? Vitamin D, Cholecalciferol, 25 MCG (1000 UT) Cap, Take 1 tablet by mouth daily., Disp: 30 capsule, Rfl: 3 No Known [...] Mother Alive ??? Father Alive ??? PGF PHYSICAL EXAM General-appearance normal. Alert. No acute distress. HENT-rhinorrhea NOT present. Resp -pulmonary effort normal. No respiratory distress. No audible wheeze. Skin- normal, no jaundice Neuro-patient is alert and oriented x3. Psych- Normal thought content and judgment. Rest of the physical exam limited due to telehealth appointment. There were no vitals filed for this visit. Diagnoses/Impression: 1. COVID-19 virus infection nirmatrelvir & ritonavir 300/100 (PAXLOVID) 20 x 150 MG & 10 x 100MG tablet pack 2. Attention deficit hyperactivity disorder (ADHD), combined type lisdexamfetamine (VYVANSE) 40 MG capsule Recommendations and Plan: 1. COVID-19 virus infection - nirmatrelvir & ritonavir 300/100 (PAXLOVID) 20 x 150 MG & 10 x 100MG tablet pack; Take TWO nirmatrelvir 150 mg tablets along with ONE ritonavir 100 mg tablet, with all three tablets taken together, twice daily for 5 days. May take with or without food. Swallow tablets whole. Do not chew, break or crush. Dispense: 30 each; Refill: 0 2. Attention deficit hyperactivity disorder (ADHD), combined type Stable. Needs refill till next apt , she missed medication refill apt due to COVID. - lisdexamfetamine (VYVANSE) 40 MG capsule; Take 1 capsule (40 mg total) by mouth every morning. Dispense: 15 capsule; Refill: 0 -Advised Tylenol or ibuprofen as needed for low-grade fever, headaches, and myalgias. Warm saline gargles for any sore throat. Mucinex as needed for congestion. -Advised to Seek medical care immediately if you develop respiratory distress, worsening shortness of breath, new confusion, inability to wake her stay awake or persistent pain/pressure in the chest or if your skin, lips, nailbeds turn pale or madrigal or blue depending on skin tone. Check your temperature daily. Patient voiced understanding and agrees with the plan. All questions were answered. Follow-up if needed Orders Placed This Encounter ??? lisdexamfetamine (VYVANSE) 40 MG capsule ? ? nirmatrelvir & ritonavir 300/100 (PAXLOVID) 20 x 150 MG & 10 x 100MG tablet pack Reviewed and updated this visit by provider: Charley Cabrera MD Referring Provider: No ref. provider found PCP: Charley Cabrera MD F BUILDER documented in this encounter Plan of Treatment Upcoming Encounters Date Type Department Care Team (Late st Contact Info) Description 09/08/2024 10:10 AM WHARF BUILDER Office Visit [facility] Family Medicine - [place] [address] [place] [address] [phone] Samantha Sanders MD [address] [place], [place] [phone] documented as of this encounter Visit Diagnoses Diagnosis COVID-19 virus infection- Primary Attention deficit hyperactivity disorder (ADHD), combined type documented in this encounter Additional Health Concerns Assessment Noted Time PHQ-9 Depression Total Score: 0 04/21/20 2:28 PM CDT documented as of this encounter Care Teams Otr Truck Driver Relationship Specialty [place] [address] [address] [place] [address] PCP - General FAMILY PRACTICE 04/21/22 03/03/24 documented as of this encounter
--- OUTSIDE RECORDS SUMMARY | 2024-07-24 00:46 | XMS_ITS | Encounter Summary ---
Author Organization [facility] Address [address] [place] [address]. [place], [place] [address] [place] [address] Care Team Providers Care Automobile Body Customizer Name Role Phone Charley Cabrera MD Primary Care Provider [phone] Encounter Details Date Type Department Care Team (Latest Contact Info) Description 08/29/2022 Scan HEALTH INFO SRVCS Scanned, Doc Med [...] Coronavirus/COVID-19? No / Unsure 09/08/2022 3:41 PM FLEET MANAGER documented as of this encounter Plan of Treatment Upcoming Encounters Date Type Department Care Team ( Contact Info) Description 09/08/2024 10:10 AM FLEET MANAGER Office Visit [facility] Family Medicine [facility] [address] [facility] [address] [place] [address] Samantha Sanders MD [address] [place] [address] documented as of this encounter Visit Diagnoses Not on filedocumented in this encounter Additional Health Concerns Assessment Noted Time PHQ-9 Depression Total Score: 0 04/21/20 22 2:28 PM CDT documented as of this encounter Care Teams Automobile Body Customizer Relationship Specialty [place] [address] [facility] [address] [place] [address] PCP - General FAMILY PRACTICE 04/21/22 03/03/24 documented as of this encounter
--- OUTSIDE RECORDS SUMMARY | 2024-07-24 00:46 | XMS_ITS | Encounter Summary ---
Author Organization [facility] Address [address] [place] [address]. [place], [place] [id number] [place] [address] Care Team Providers Care Literature Professor Name Role Phone Charley Cabrera MD Primary Care Provider [phone] Reason for Visit * Reason Onset Date Comments Question 06/26/2022 Encounter Details Date Type Department Care Team (Late st Contact Info) Description 06/26/2022 Telephone [facility] Family & Internal Medicine [facility] [id number] [place] [phone] Charley Cabrera [place] [id number] [place] [address]. [address] [place] [address] Question Social History Tobacco Use [...] as of this encounter Progress Notes * Carmen Sharpe MA - 06/27/2022 12:07 PM CST Patient was made aware R COACH OPERATOR * Charley Cabrera MD - 06/27/2022 7:08 AM CST Please let her know 11-day prescription for Vyvanse sent until her appointment. Thanks R COACH OPERATOR * Fernando Fernandez RN - 06/26/2022 3:34 PM CST Please advise. R COACH OPERATOR * Ellen Payan - 06/26/2022 12:04 PM CST Karlie called to schedule apt for 07/09/22 with pcp. Patient is concerned going that long without taking the Vyvanse that she will have a set back Please advise and patient is requesting a call back regarding concern. R COACH OPERATOR documented in this encounter Plan of Treatment Upcoming Encounters Date Type Department Care Team (Late st Contact Info) Description 09/08/2024 10:10 AM MOTOR COACH OPERATOR Office Visit [facility] Family Medicine - [place] [address] [facility] [address] [place] [address] Samantha Sanders MD [address] [place] [address] documented as of this encounter Visit Diagnoses Diagnosis Attention deficit hyperactivity disorder (ADHD), combined type documented in this encounter Additional Health Concerns Assessment Noted Time PHQ-9 Depression Total Score: 0 04/21/20 22 2:28 PM CDT documented as of this encounter Care Teams Literature Professor Relationship Specialty [place] [address] [facility]. [address] [place] [address] PCP - General FAMILY PRACTICE 04/21/22 03/03/24 documented as of this encounter
--- OUTSIDE RECORDS SUMMARY | 2024-07-24 00:46 | XMS_ITS | Encounter Summary ---
Author Organization [facility] Address [address] [place] [address]. [place], [place] [address] [place], [place] [id number] Care Team Providers Care Funeral Assistant Name Role Phone Charley Cabrera MD Primary Care Provider [phone] Reason for Visit * Reason Onset Date Comments Ultrasound 05/14/2022 Scheduling Encounter Details Date Type Department Care Team (Late st Contact Info) Description 05/14/2022 Telephone [facility] Family & Internal Medicine [facility] [address] [place] [address] [place] [address] [facility] [place] [address] Ultrasound (Scheduling) Social History Tobacco Use Types Packs/Day Years [...] suspected to have Coronavirus/COVID-19? No / Unsure 05/19/2022 12:58 PM CDT documented as of this encounter Progress Notes * Fernando Fernandez RN - 05/14/2022 3:47 PM CDT Noted thank you. * Vickie Dodge - 05/14/2022 2:06 PM CDT Patient is scheduled 05/23/22 for thyroid US, she wants to keep appointment on 05/19/22. * Vickie Dodge - 05/14/2022 1:39 PM CDT Patient called to advise she has been unable to reach Central Scheduling to schedule the US Thyroid, she states central scheduling will call her and she will call back but is on hold too long, she states this has happened several times. She was reaching out to Dr. Cabrera for assistance in scheduling. While patient was on hold I called Central Scheduling, on hold 6 minutes and patient did not want to wait any longer. Right as we hung up central scheduling answered call. Spoke with Nikki at [facility], she advised she would reach out to patient and get her scheduled right away. Patient has appointment on 05/19/[address] Cabrera, Nikki advised she didn't think she could get her scheduled that soon. Does patient need to reschedule or ok to keep that appointment? Patient advised her appt on 05/19/22 was to go over results. Please advise and call patient if she needs to reschedule. documented in this encounter Plan of Treatment Upcoming Encounters Date Type Department Care Team (Late st Contact Info) Description 09/08/2024 10:10 AM ENGRAVER SEALS Office Visit [facility] Family Medicine - [place] [address] [place] [address] Samantha Sanders MD [address] [place] [address] documented as of this encounter Visit Diagnoses Not on filedocumented in this encounter Additional Health Concerns Assessment Noted Time PHQ-9 Depression Total Score: 0 04/21/20 22 2:28 PM CDT documented as of this encounter Care Teams Funeral Assistant Relationship Specialty [place] [address] [place] [address] PCP - General FAMILY PRACTICE 04/21/22 03/03/24 documented as of this encounter
--- OUTSIDE RECORDS SUMMARY | 2024-07-24 00:46 | XMS_ITS | Encounter Summary ---
Author Organization [facility] Address [address] [place] [address]. [place], [place] [id number] [place] [address] Care Team Providers Care New Order Clerk Name Role Phone Charley Cabrera MD Primary Care Provider [phone] Reason for Visit * Reason Comments Medication Check Lab Results Pt is here to discus s vyvanse and go over lab results Encounter Details Date Type Department Care Team (Late st Contact Info) Description 05/19/2022 1:00 PM CDT Office Visit [facility] Family & Internal Medicine [address] [address] Charley Cabrera MD [address] [place] [address]. [address] [address] Medication Check ; Lab Results (Pt is here to discuss vyvanse and go over lab results) Social History Tobacco Use Types Packs/Day Years [...] PM CDT documented as of this encounter Last Filed Vital Signs Vital Sign Reading Time Taken Comments Blood Pressure 104/69 05/19/2022 1:10 PM CDT Pulse 76 05/19/2022 1:10 PM CDT Temperature 37.1 ??C (98.7 ??F) 05/19/2022 1:10 PM CD T Respiratory Rate 20 05/19/2022 1:10 PM CDT Oxygen Saturation 100% 05/19/2022 1:10 PM CDT Inhaled Oxygen Concentration - - Weight 65.7 kg (144 lb 12.8 oz) 05/19/2022 1:10 PM CDT Height 162.6 cm (5' 4 ) 05/19/2022 1:10 PM CDT Body Mass Index 24.85 05/19/2022 1:10 PM CDT documented in this encounter Progress Notes * Charley Cabrera MD - 05/19/2022 1:00 PM CDT Reason for Visit: Medication Check and Lab Results (Pt is here to discuss vyvanse and go over lab results) History of Present Illness: HPI Miss Karlie Ivory is a pleasant 47-year-old female with past medical history but not limitedto anxiety, depression, ADHD, hyperlipidemia, chronic insomnia , status postlumpectomy, hysterectomy secondary to dysmenorrhea, ulcerative colitis in remission was seen in office today to follow-up on labs and med check Since last visit her vyvanse was decreased from 70 to 50 mg qD Fatigue is better. Mood- good Sleep- chronic issues. She started melatonin. ADHD- good. Vyvanse, last dose was today She is starting a new job May 26. Weight Loss- she is on naltrexone per her psych. Specialist: 1. Endo- no fu needed if US is normal. Doing this week. She id waiting 2. Psych 3. GI -for hx of UC. No other concerns for today. ROS: Review of Systems negative except documented in HPI Medications: Current Outpatient Medications: ??? azelastine (AZELASTINE) [...] 0.025 MG/24HR, , Disp: , Rfl: ??? lisdexamfetamine (VYVANSE) 40 MG capsule, Take 1 capsule (40 mg total) by mouth every morning.,Disp: 30 [...] mouth daily., Disp: 30 capsule, Rfl: 3 ??? estradiol 1 MG tablet, Take 1 mg by mouth daily., Disp: , Rfl: ??? naltrexone (DEPADE) 50 MG tablet, Take 50 mg by mouth daily., Disp: , Rfl: No Known Allergies Past [...] status: Tobacco Use ??? Smoking status: Light Tobacco Smoker Packs/day: 0.00 Years: 15.00 Pack years: 0.00 Types: Cigarettes ??? Smokeless tobacco: Never Used ??? Tobacco comment: cut back alot Vaping Use ??? Vaping [...] Vitals reviewed. HENT: Head: Normocephalic and atraumatic. Nose: Nose normal. Mouth/Throat: Mucous membranes are moist. Oropharynx is clear. Eyes: Conjunctiva/sclera: Conjunctivae normal. Cardiovascular: Rate and Rhythm: Normal rate and regular rhythm. Pulmonary: Effort: Pulmonary effort is normal. Breath sounds: Normal breath sounds. No wheezing. Musculoskeletal: Cervical back: Normal range of motion. Right lower leg: No edema. Left lower leg: No edema. Skin: General: Skin is warm. Neurological: General: No focal deficit present. Mental Status: She is alert and oriented to person, place, and time. Psychiatric: Mood and Affect: Mood normal. Behavior: Behavior normal. Judgment: Judgment normal. Filed Vitals: 05/19/22 1310 BP: 104/69 Pulse: 76 Resp: 20 Temp: 98.7 ??F (37.1 ??C) TempSrc: Core SpO2: 100% Weight: 65.7 kg (144 lb 12.8 oz) Height: 5' 4 (1.626 m) Diagnoses/Impression: 1. Therapeutic drug monitoring DRUG MONITORING, PANEL 5, SCREEN ONLY DRUG MONITORING, METHAMPHETAMINE D/L ISOMERS (U) MEDMATCH-LIST PRESCRIBED DRUGS FOR QUANTITATIVE /CONFIRMATORY TESTING 2. Attention deficit hyperactivity disorder (ADHD), combined type lisdexamfetamine (VYVANSE) 40 MG capsule 3. Mixed hyperlipidemia pravastatin (PRAVACHOL) 40 MG tablet 4. Medication management DRUG MONITORING, PANEL 5, SCREEN ONLY DRUG MONITORING, METHAMPHETAMINE D/L ISOMERS (U) MEDMATCH-LIST PRESCRIBED DRUGS FOR QUANTITATIVE /CONFIRMATORY TESTING Recommendations and Plan: 1. Attention deficit hyperactivity disorder (ADHD), combined type Patient is on a slow taper to wean off. Was on Vyvanse 70 mg daily. No change with decreasing to 50mg qD. Today I plan to cut her down to 40 mg daily. Next dose change in 2 months. Discussed side effects of chronic simulants with patient today. No longer seeing psych. CSA signed 04/21 UDS today - lisdexamfetamine (VYVANSE) 40 MG capsule; Take 1 capsule (40 mg total) by mouth every morning. Dispense: 30 capsule; Refill: 0 2. Mixed hyperlipidemia Discussed recent fasting lipid panel in detail with patient. Elevated LDL- increase statin today - pravastatin (PRAVACHOL) 40 MG tablet; Take 1 tablet (40 mg total) by mouth nightly at bedtime. Dispense: 30 tablet; Refill: 2 3. Therapeutic drug monitoring 4. Medication management - DRUG MONITORING, PANEL 5, SCREEN ONLY; Future - DRUG MONITORING, METHAMPHETAMINE D/L ISOMERS (U); Future - MEDMATCH-LIST PRESCRIBED DRUGS FOR QUANTITATIVE /CONFIRMATORY TESTING; Future Follow-up in 2 months. She voiced understanding and agrees with the plan. All questions answered. Orders Placed This Encounter ??? DRUG MONITORING, PANEL 5, SCREEN ONLY ??? DRUG MONITORING, METHAMPHETAMINE D/L ISOMERS (U) ??? MEDMATCH-LIST PRESCRIBED DRUGS FOR QUANTITATIVE /CONFIRMATORY TESTING ??? estradiol (VIVELLE-DOT) 0.025 MG/24HR ??? busPIRone (BUSPAR) 7.5 MG tablet ??? naltrexone (DEPADE) 50 MG tablet ??? pravastatin (PRAVACHOL) 40 MG tablet ??? lisdexamfetamine (VYVANSE) 40 MG capsule Reviewed and updated this visit by provider: Charley Cabrera MD Referring Provider: No ref. provider found PCP: Charley Cabrera MD RTMENT DIRECTOR documented in this encounter Plan of Treatment Upcoming Encounters Date Type Department Care Team (Late st Contact Info) Description 09/08/2024 10:10 AM DEPARTMENT DIRECTOR Office Visit [facility] Family Medicine - [place] [address] [facility] [address] [place], [place] [address] Samantha Sanders MD [address] [place], [place] [id number] documented as of this encounter Procedures Procedure Name Priority Date/Time Associated Diagnosis Comments DRUG MONITORING, PANEL 5, SCREEN (U) Routine 05/19/2022 1:59 PM CDT Therapeutic drug monitoring Medication management DRUG MONITORING, METHAMPHETAMINE D/L ISOMERS (U) Routine 05/19/2022 1:59 PM CDT Therapeutic drug monitoring Medication management documented in this encounter Results * DRUG MONITORING, METHAMPHETAMINE D/L ISOMERS (U) (05/19/2022 1:59 PM CDT) METHAMPHETAMINE PM (U) 0 % [facility] METHAMPHETAMINE PM (U) 0 % [facility] D/L METHAMPHET COMMENTS [facility] Comment:See LDT Notes Note [facility] Comment: This drug testing is for medical treatment only. Analysis was performed as non-forensic testing and these results should be used only by healthcare providers to render diagnosis or treatment, or to monitor progress of medical conditions. LDT Notes: Confirmation tests were developed and their analytical performance characteristics have been determined by [facility] [facility]. It has not been cleared or approved by the FDA. This assay has been validated pursuant to the CLIA regulations and is used for clinical purposes. Healthcare Providers needing Interpretation assistance, please contact us at [phone] ( ) M-F, 8am to 10pm EST 05/19/2022 1:59 PM CDT 05/20/2022 5:14 AM CDT Charley Cabrera MD LABORATORY Final Result [facility] [address] [facility] [place] [address] [facility] [address] [place] [address] * (ABNORMAL) DRUG MONITORING, PANEL 5, SCREEN ONLY (05/19/2022 1:59 PM CDT) Pathologist [facility] AMPHETAMINES PM NEGATIVE <500 ng/mL [facility] Comment: See Note A See Note A BARBITURATES PM (U) NEGATIVE <300 ng/mL [facility] Comment: See Note A See Note A BENZODIAZEPINES PM (U) POSITIVE(A) <100 ng/mL [facility] Comment: See Note A See Note A COCAINE METABOLITE PM (U) NEGATIVE <150 ng/mL [facility] Comment: See Note A See Note A MARIJUANA METABOLITE PM (U) NEGATIVE <20 ng/mL [facility] Comment: See Note A See Note A METHADONE PM (U) NEGATIVE <100 ng/mL [facility] Comment: See Note A See Note A OPIATES PM (U) NEGATIVE <100 ng/mL [facility] Comment: See Note A See Note A OXYCODONE PM (U) NEGATIVE <100 ng/mL [facility] Comment: See Note A See Note A CREATININE RANDOM URINE >300.0 > or = 20.0 mg/dL [facility] pH PM (U) 5.5 4.5 - 9.0 [facility] OXIDANT NEGATIVE <200 mcg/mL [facility] Note [facility] Comment: This drug testing is for medical treatment only. Analysis was performed as non-forensic testing and these results should be used only by healthcare providers to render diagnosis or treatment, or to monitor progress of medical conditions. Note A: The results are presumptive; based only on screening methods, and they have not been confirmed by a definitive method. Healthcare Providers needing Interpretation assistance, please contact us at [phone] ( ) M-F, 8am to 10pm EST 05/19/2022 1:59 PM CDT 05/20/2022 5:12 AM CDT us Charley Cabrera MD LABORATORY Final Result [facility] [address] [place] [address] [facility] [address] [place] [address] documented in this encounter Visit Diagnoses Diagnosis Therapeutic drug monitoring- Primary Encounter for therapeutic drug monitoring Attention deficit hyperactivity disorder (ADHD), combined type Mixed hyperlipidemia Medication management Encounter for long-term (current) use of other medications documented in this encounter Additional Health Concerns Assessment Noted Time PHQ-9 Depression Total Score: 0 04/21/20 22 2:28 PM CDT documented as of this encounter Care Teams New Order Clerk Relationship Specialty [place] [address] [facility] [address] [place] [address] PCP - General FAMILY PRACTICE 04/21/22 03/03/24 documented as of this encounter
--- OUTSIDE RECORDS SUMMARY | 2024-07-24 00:46 | XMS_ITS | Encounter Summary ---
Author Organization [facility] Address [address] [place] [address]. [place], [place] [address] [place] [address] Care Team Providers Care Environmental Health And Safety Intern Name Role Phone Charley Cabrera MD Primary Care Provider [phone] Encounter Details Date Type Department Care Team (Latest Contact Info) Description 05/23/2022 Travel Social History Tobacco Use Types Packs/Day [...] ( Contact Info) Description 09/08/2024 10:10 AM BLOCK BREAKER Office Visit [facility] Family Medicine [place] [address] [facility] [address] [place] [address] Samantha Sanders MD [address] [place] [address] documented as of this encounter Visit Diagnoses Not on filedocumented in this encounter Additional Health Concerns Assessment Noted Time PHQ-9 Depression Total Score: 0 04/21/20 22 2:28 PM CDT documented as of this encounter Care Teams Environmental Health And Safety Intern Relationship Specialty [place] [address] [facility] [place] [address] PCP - General FAMILY PRACTICE 04/21/22 03/03/24 documented as of this encounter
--- OUTSIDE RECORDS SUMMARY | 2024-07-24 00:46 | XMS_ITS | Encounter Summary ---
Author Organization [facility] Address [address] [place] [address]. [place], [place] [address] [place] [address] Care Team Providers Care Skid Road Worker Name Role Phone Elena Cabrera MD Primary Care Provider [phone] Reason for Referral * Imaging (Routine) - Closed Specialty Diagnoses / Procedures Referred By Contranjeet t Referred To Contact RADIOLOGY Diagnoses Abnormal thyroid ultrasound Thyroid cyst Procedures [place] [address] [facility]. [address] [place] [address] Phone: tel: fax: Referral ID Status Reason Start Date Expiration Date Visits Re quested Visits Authorized [id number] Closed 04/21/2022 04/21/2023 1 1 Reason for Visit * Reason Comments Meet and Greet Provider Follow Up Meds f/u from Faith leon Encounter Details Date Type Department Care Team (Late st Contact Info) Description 04/21/2022 2:20 PM CDT Office Visit [facility] Family & Internal Medicine - [address] [address] [place] [address] [facility]. [address] [place] [address] Meet and Greet Provider; Follow Up (Meds f/u from Faith Germain) Social History Tobacco Use Types Packs/Day Years [...] Recorded In the last 10 days, have debora u been in contact with someone who was confirmed or suspected to have Coronavirus/COVID-19? No / Unsure 04/21/2022 2:10 PM CDT documented as of this encounter Last Filed Vital Signs Vital Sign Reading Time Taken Comments Blood Pressure 125/77 04/21/2022 2:21 PM CDT Pulse 92 04/21/2022 2:21 PM CDT Temperature 37.6 ??C (99.6 ??F) 04/21/2022 2:21 PM CD T Respiratory Rate 18 04/21/2022 2:21 PM CDT Oxygen Saturation 98% 04/21/2022 2:21 PM CDT Inhaled Oxygen Concentration - - Weight 66.2 kg (146 lb) 04/21/2022 2:21 PM CDT Height 162.6 cm (5' 4 ) 04/21/2022 2:21 PM CDT Body Mass Index 25.06 04/21/2022 2:21 PM CDT documented in this encounter Progress Notes * Eelna Cabrera MD - 04/21/2022 2:20 PM CDT Reason for Visit: Meet and Greet Provider and Follow Up (Meds f/u from Faith Galvez.) History of Present Illness: HPI Miss Karlie Ivory is a pleasant 47-year-old female with past medical history but not limitedto anxiety, depression, ADHD, hyperlipidemia, chronic insomnia was seen in office today to establish care with new PCP. Previous PCP- relocated. She has now Moved to [place]. Reviewed past medical, surgical, social and family history in snapshot today. Noted breast nodule sp lumpectomy Hysterectomy 2/2 heavy menstrual bleeding Lost weight on contrave. Still taking Wellbutrin. On naltrexone that is being prescribed by SOLEDAD COTA MD. phenteramine failed in the past. Trying to quit smoking ADHD - on vyvanese for months. She had been on it in the past . Patient would like to see if lower dose will help her. Hx of [place] Clare Specialist: Has seen psych in the past. For ADHD and situational depression.not been in therapy. 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 Endo for thyroid disease- Seen once and no follow ups needed. Dr. Weber Seeing ENT-cancelled apt.unsure if she needs to see them 3. GI- ulcerative colitis . No longer on treatment and states last colonoscopy was normal. No other concerns for today ROS: Review of Systems Constitutional: Positive for fatigue. Negative for activity change, appetite change, chills [...] behavioral problems. Medications: Current Outpatient Medications: ??? azelastine (AZELASTINE) [...] daily., Disp: 30 tablet, Rfl: 1 ??? estradiol 1 MG tablet, Take 1 mg by mouth daily., Disp: , Rfl: ??? lisdexamfetamine (VYVANSE) 50 MG capsule, Take 1 capsule (50 mg total) by mouth every morning.,Disp: 30 capsule, Rfl: 0 ??? loratadine (CLARITIN) 10 MG tablet, Take 1 tablet (10 mg total) by mouth daily., Disp: 30 tablet, Rfl: 3 ??? Multiple Vitamin (MULTIVITAMIN ADULT OR), Take by mouth daily. , Disp: , Rfl: ??? pravastatin (PRAVACHOL) 20 MG tablet, Take 1 tablet (20 mg total) by mouth nightly at bedtime.,Disp: 30 tablet, Rfl: 2 ??? Vitamin D, Cholecalciferol, 25 MCG (1000 UT) Cap, Take 1 tablet by mouth daily., Disp: 30 capsule, Rfl: 3 ??? zolpidem (AMBIEN) 5 MG tablet, Take 5 mg by mouth nightly at bedtime., Disp: , Rfl: No Known Allergies Past [...] oriented to person, place, and time. Psychiatric: Attention and Perception: Attention normal. Mood and Affect: Mood is anxious. Mood is not depressed. Affect is not tearful. Speech: Speech normal. Behavior: Behavior normal. Thought Content: Thought content does not include homicidal or suicidal ideation. Thought content does not include homicidal or suicidal plan. Judgment: Judgment normal. FLOR-7 (Generalized Anxiety Disorder) Screening FLOR-7 04/21/2022 Feeling nervous, anxious and on edge 0 - not at all Not being able to stop or control worrying 0 - not at all Worrying too much about different things 0 - not at all Trouble Relaxing 1 - several days Being so restless that it's hard to sit still 0 - not at all Becoming easily annoyed or irritable 0 - not at all Feeling afraid as if something awful might happen 0 - not at all Total Score 1 PHQ-2 Score PHQ-2 Score: 0 Filed Vitals: 04/21/22 1421 BP: 125/77 Pulse: 92 Resp: 18 Temp: 99.6 ??F (37.6 ??C) TempSrc: Temporal SpO2: 98% Weight: 66.2 kg (146 lb) Height: 5' 4 (1.626 m) Diagnoses/Impression: 1. Encounter to establish care with new doctor 2. Abnormal thyroid ultrasound US THYROID 3. Thyroid cyst US THYROID 4. S/P colonoscopy with polypectomy 5. Attention deficit hyperactivity disorder (ADHD), combined type lisdexamfetamine (VYVANSE) 50 MG capsule 6. Mixed hyperlipidemia pravastatin (PRAVACHOL) 20 MG tablet LIPID PANEL 7. Influenza vaccination declined 8. Hx of ulcerative colitis Recommendations and Plan: 1. Encounter to establish care with new doctor 2. Abnormal thyroid ultrasound 3. Thyroid cyst - US THYROID; Future Last TSH normal Seen Endo 4. S/P colonoscopy with polypectomy Hx of UC. coNTINUE TO monitor 5. Attention deficit hyperactivity disorder (ADHD), combined type FLOR 1 today Stable Will decrease vyvanse from 70 to 50 mg qD - lisdexamfetamine (VYVANSE) 50 MG capsule; Take 1 capsule (50 mg total) by mouth every morning. Dispense: 30 capsule; Refill: 0 6. Mixed hyperlipidemia - pravastatin (PRAVACHOL) 20 MG tablet; Take 1 tablet (20 mg total) by mouth nightly at bedtime. Dispense: 30 tablet; Refill: 2 - LIPID PANEL; Future 7. Influenza vaccination declined Advised 1 month follow up appointment for med check and order future annual labs - cbc, TSH, CMP ifstill on naltrexone for 3 month follow up. CSA AND UDS prn. She voiced understanding and agrees with the plan. All questions answered COUNSELING: I spent 43 minutes today reviewing the patient's medical record, obtaining history, performing an exam, ordering medications, tests and/or procedures, documenting in the medical record, referring and/or communicating with other health care providers, counseling and educating the patient/family/caregiver. This includes time spent prior to the visit and after the visit in direct care of patient. Reviewing and communicating test results & coordination of care. This time dose not include time spent in any separately reportable services. Orders Placed This Encounter ??? LIPID PANEL ??? US THYROID ??? zolpidem (AMBIEN) 5 MG tablet ??? lisdexamfetamine (VYVANSE) 50 MG capsule ??? pravastatin (PRAVACHOL) 20 MG tablet Reviewed and updated this visit by provider: Meds Problems Elena Cabrera MD Referring Provider: No ref. provider found PCP: Elena Cabrera MD documented in this encounter Plan of Treatment Upcoming Encounters Date Type Department Care Team (Late st Contact Info) Description 09/08/2024 10:10 AM HEALTH INFORMATION PROVIDER Office Visit [facility] Family Medicine - [place] [address] [place] [address] Samantha Sanders MD [address] [place] [address] documented as of this encounter Results * US THYROID (05/23/2022 3:32 PM CDT) Anatomical Region Laterality Modality Neck Ultrasound 05/23/2022 6:47 PM CDT Impressions 05/23/2022 6:49 PM CDT Impression: Redemonstrated benign-appearing cyst within the right thyroid, favored a colloid cyst. Per the ACR TI-RADS recommendations below, no follow-up imaging is required. ACR TI-RADS recommendations: TR5, highly suspicious (greater than or equal to 7 points) - FNA if greater than or equal to 1 cm, follow-up if 0.5-0.9 cm every year for 5 years TR4, moderately suspicious (4-6 points) - FNA if greater than or equal to 1.5cm, follow-up if 1-1.4 cm in 1, 2, 3 and 5 years TR3, mildly suspicious (3 points) - FNA if greater than or equal to 2.5cm, follow-up if 1.5-2.4 cm in 1, 3 and 5 years TR2, not suspicious (2 points) and TR1, benign (0 points) - No FNA or follow-up * ACR TI-RADS recommends no more than two nodules with the highest ACR TI-RADS total point should be biopsied and no more than four nodules should be followed. ACR TI-RADS (Thyroid Imaging and Reporting Data System) is a structured system for interpreting and reporting thyroid imaging studies with management guidelines. https://www.acr.org/Clinical-Resources/Npomjaymo-okd-Pkdp-Systems/TI-RADS Ordered By: ELENA CABRERA Interpreted By: Obie Mack MD, 05/23/2022 6:47 PM Narrative 05/23/2022 6:49 PM CDT Examination: Thyroid ultrasound. Clinical Information: Follow-up right thyroid nodule. Comparison: Ultrasound 09/03/2021. Technique: Multiple grayscale and color Doppler images of the thyroid were obtained. Findings: Right Thyroid Lobe: Size: ??4.4 x 1.2 x 1.3 cm. Echotexture: Normal. Nodule(s): Redemonstrated anechoic rounded region within the right thyroid, measuring 5 to 6 mm. This is slightly more prominent than seen previously but is favored to represent a benign colloid cyst. TR 1 Left Thyroid Lobe: Size: ??4.3 x 1.0 x 1.4 cm. Echotexture: Normal. Nodule(s): None. Isthmus: 3 mm. Procedure Note Obie Mack MD - 05/23/2022 Examination: Thyroid ultrasound. Clinical Information: Follow-up right thyroid nodule. Comparison: Ultrasound 09/03/2021. Technique: Multiple grayscale and color Doppler images of the thyroid wereobtained. Findings: Right Thyroid Lobe: Size: 4.4 x 1.2 x 1.3 cm. Echotexture: Normal. Nodule(s): Redemonstrated anechoic rounded region within the rightthyroid, measuring 5 to 6 mm. This is slightly more prominent than seenpreviously but is favored to represent a benign colloid cyst. TR 1 Left Thyroid Lobe: Size: 4.3 x 1.0 x 1.4 cm. Echotexture: Normal. Nodule(s): None. Isthmus: 3 mm. Impression: Redemonstrated benign-appearing cyst within the right thyroid, favored acolloid cyst. Per the ACR TI-RADS recommendations below, no follow-upimaging is required. ACR TI-RADS recommendations: TR5, highly suspicious (greater than or equal to 7 points) - FNA ifgreater than or equal to 1 cm, follow-up if 0.5-0.9 cm every year for 5years TR4, moderately suspicious (4-6 points) - FNA if greater than or equal to1.5cm, follow-up if 1-1.4 cm in 1, 2, 3 and 5 years TR3, mildly suspicious (3 points) - FNA if greater than or equal to 2.5cm,follow-up if 1.5-2.4 cm in 1, 3 and 5 years TR2, not suspicious (2 points) and TR1, benign (0 points) - No FNA orfollow-up * ACR TI-RADS recommends no more than two nodules with the highest ACRTI-RADS total point should be biopsied and no more than four nodulesshould be followed. ACR TI-RADS (Thyroid Imaging and Reporting Data System) is a structuredsystem for interpreting and reporting thyroid imaging studies withmanagement guidelines. https://www.acr.org/Clinical-Resources/Wgfkudqcg-wje-Yhoc-Systems/TI-RADS Ordered By: ELENA CABRERA Interpreted By: Obie Mack MD, 05/23/2022 6:47 PM Elena Cabrera MD ULTRASOUND Final Result documented in this encounter Visit Diagnoses Diagnosis Encounter to establish care with new doctor- Primary Other reasons for seeking consultation Abnormal thyroid ultrasound Nonspecific abnormal results of thyroid function study Thyroid cyst Cyst of thyroid S/P colonoscopy with polypectomy Other postprocedural status Attention deficit hyperactivity disorder (ADHD), combined type Mixed hyperlipidemia Influenza vaccination declined Vaccination not carried out because of patient refusal Hx of ulcerative colitis Personal history of other diseases of digestive system Abnormal thyroid ultrasound Nonspecific abnormal results of thyroid function study Thyroid cyst Cyst of thyroid documented in this encounter Additional Health Concerns Assessment Noted Time PHQ-9 Depression Total Score: 0 04/21/20 22 2:28 PM CDT documented as of this encounter Care Teams Skid Road Worker Relationship Specialty [place] [address] [facility] [address] [place] [address] PCP - General FAMILY PRACTICE 04/21/22 03/03/24 documented as of this encounter
--- OUTSIDE RECORDS SUMMARY | 2024-07-24 00:46 | XMS_ITS | Encounter Summary ---
Author Organization [facility] Address [address] [place] [address]. [place], [place] [address] [place] [address] Care Team Providers Care Silk Spooler Name Role Phone Charley Cabrera MD Primary Care Provider [phone] Samantha Sanders MD Primary Care Provider + Encounter Details Date Type Department Care Team (Late st Contact Info) Description 08/13/2022 My Computer Works Message Enc [facility] Family & Internal Medicine [address] [address] [place], [facility] Provider medication Social History Tobacco [...] suspected to have Coronavirus/COVID-19? No / Unsure 07/24/2022 4:17 PM AD COMPOSITOR documented as of this encounter Plan of Treatment Upcoming Encounters Date Type Department Care Team (Late st Contact Info) Description 09/08/2024 10:10 AM AD COMPOSITOR Office Visit [facility] Family Medicine - [place] [address] [place] [address] Samantha Sanders MD [address] [place] [address] documented as of this encounter Visit Diagnoses Not on filedocumented in this encounter Additional Health Concerns Infection Onset Date Last Indicated Resolved Time COVID-19 Rule Out 05/25/2023 05/25/2023 05/25/2023 10:11 AM AD COMPOSITOR COVID-19 Confirmed 05/25/2023 05/25/2023 12:32 AM AD COMPOSITOR Assessment Noted Time PHQ-9 Depression Total Score: 0 04/21/20 22 2:28 PM CDT documented as of this encounter Care Teams Silk Spooler Relationship Specialty [place] [address] [facility]. [address] [place] [address] PCP - General FAMILY PRACTICE 04/21/22 03/03/24 Samantha Sanders MD [address] [place] [address] PCP - General FAMILY PRACTICE 03/07/24 documented as of this encounter
--- OUTSIDE RECORDS SUMMARY | 2024-07-24 00:46 | XMS_ITS | Encounter Summary ---
Author Organization [facility] Address [address] [place] [address]. [place], [place] [address] [place] [address] Care Team Providers Care Assembler Motor Vehicle Name Role Phone Charley Cabrera MD Primary Care Provider [phone] Reason for Visit * Reason Onset Date Comments Medication Problem 08/12/2022 Encounter Details Date Type Department Care Team (Late st Contact Info) Description 08/12/[address] [facility] Family & Internal Medicine [facility] [address] [place] [address] [place] [address] [facility]. [address] [place] [address] Medication Problem Social History Tobacco [...] Coronavirus/COVID-19? No / Unsure 07/24/2022 4:17 PM FILTER OPERATOR documented as of this encounter Progress Notes * Edna Nunez RN - 08/13/2022 10:28 AM CST DivvyDownhart message sent ER OPERATOR * Charley Cabrera MD - 08/12/2022 3:21 PM CST I am glad she was able to set up psychiatry appointment. I will send 20 tablets of the 10 mg Vyvanse to add with her 20 mg tablets for a total dose of 30 mg every day. -----Please let her know future prescriptions to come from psychiatrist. THANKS ER OPERATOR * Edna Nunez RN - 08/12/2022 1:48 PM CST Please advise. ER OPERATOR * Ninfa Chi LPN - 08/12/2022 1:10 PM CST Pt called Pt wants Dr. Cabrera to know she has Psych appt 09/01/22 Dr. Tom But the decrease in Vyvanse to 20 is causing a lot of problem S/S feeling disorganized little anxiety and rigit muscles causing awkward movement She believes it was to big a drop of vyvanse She would like to go back up to 30 mg or 40 mg she would only need 10 mg tabs or 20 mg tabs to go with the 20 mg she already has Pharm [facility] [phone] ER OPERATOR documented in this encounter Plan of Treatment Upcoming Encounters Date Type Department Care Team (Late st Contact Info) Description 09/08/2024 10:10 AM FILTER OPERATOR Office Visit [facility] Family Medicine - [place] [address] [place] [address] Samantha Sanders MD [address] [place] [address] documented as of this encounter Visit Diagnoses Diagnosis Attention deficit hyperactivity disorder (ADHD), combined type- Primary documented in this encounter Additional Health Concerns Assessment Noted Time PHQ-9 Depression Total Score: 0 04/21/20 22 2:28 PM CDT documented as of this encounter Care Teams Assembler Motor Vehicle Relationship Specialty [place] [address] [facility]. [address] [place], [place] [id number] PCP - General FAMILY PRACTICE 04/21/22 03/03/24 documented as of this encounter
--- OUTSIDE RECORDS SUMMARY | 2024-07-24 00:46 | XMS_ITS | Encounter Summary ---
Author Organization [facility] Address [address] [place] [address]. [place], [place] [address] [place] [address] Care Team Providers Care Barkeep Name Role Phone Charley Cabrera MD Primary Care Provider [phone] Reason for Referral * Consultation (Routine) - Closed Specialty Diagnoses / Procedures Referred By [place] sarah Referred To Contact OTOLARYNGOLOGY Diagnoses Thyroid cyst Procedures OFFICE/OUTPT VISIT,NEW,LEVL III OFFICE/OUTPT VISIT,NEW,LEVL IV OFFICE/OUTPT VISIT,NEW,LEVL V OFFICE/OUTPT VISIT,EST,LEVL III OFFICE/OUTPT VISIT,EST,LEVL IV OFFICE/OUTPT VISIT,EST,LEVL V Charley Cabrera MD [address] [place] [address]. [address] [place] [address] Phone: tel: fax: Modesto Borja MD [address] [place] [address] Phone: tel: fax: Referral ID Status Reason Start Date Expiration Date Visits Re quested Visits Authorized [id number] Closed 05/30/2022 06/29/2023 99 99 Scheduling Instructions Needs referral for Dr Borja ENT AL WORKER CLINICAL Encounter Details Date Type Department Care Team (Late st Contact Info) Description 05/30/2022 Orders Only [facility] Family & Internal Medicine [address] [address] Amelia Pat LPN Social History Tobacco Use Types Packs/Day Years [...] st Contact Info) Description 09/08/2024 10:10 AM SOCIAL WORKER CLINICAL Office Visit [facility] Family Medicine - [place] [address] [facility] [address] [place] [address] Samantha Sanders MD [address] [facility] [address] [place] [address] Scheduled Referrals Name Type Priority Associated Diagnoses Orde r Schedule Ambulatory referral to ENT Referral Routine Thyroid cyst Ordered: 05/30/2022 documented as of this encounter Visit Diagnoses Diagnosis Thyroid cyst- Primary Cyst of thyroid documented in this encounter Additional Health Concerns Assessment Noted Time PHQ-9 Depression Total Score: 0 04/21/20 2:28 PM CDT documented as of this encounter Care Teams Barkeep Relationship Specialty [place] [address] [address] [place] [address] PCP - General FAMILY PRACTICE 04/21/22 03/03/24 documented as of this encounter
--- OUTSIDE RECORDS SUMMARY | 2024-07-24 00:46 | XMS_ITS | Encounter Summary ---
Author Organization [facility] Address [address] [place] [address]. [place], [place] [address] [place] [address] Care Team Providers Care Labor Economics Professor Name Role Phone Charley Cabrera MD Primary Care Provider Encounter Details Date Type Department Care Team (Late st Contact Info) Description 07/10/2022 SensorLogic Message Enc [facility] Family & Internal Medicine [address] [address] Charley Cabrera MD [address] [place] [address]. [address] [place] [address] COVID Social History Tobacco Use Types Packs/Day Years [...] as of this encounter Progress Notes * Mona Nunez LPN - 07/11/2022 11:45 AM CST Tried calling for a VV no answer PUNCH TEACHER * Charley Cabrera MD - 07/11/2022 7:21 AM CST Advise VV anytime today with me. thx PUNCH TEACHER * Fernando Fernandez RN - 07/10/2022 4:44 PM CST Please advise. PUNCH TEACHER documented in this encounter Plan of Treatment Upcoming Encounters Date Type Department Care Team (Late st Contact Info) Description 09/08/2024 10:10 AM KEY PUNCH TEACHER Office Visit [facility] Family Medicine - [place] [address] [facility] [address] [place] [address] Samantha Sanders MD [address] [place] [address] documented as of this encounter Visit Diagnoses Not on filedocumented in this encounter Additional Health Concerns Assessment Noted Time PHQ-9 Depression Total Score: 0 04/21/20 22 2:28 PM CDT documented as of this encounter Care Teams Labor Economics Professor Relationship Specialty [place] [address] [facility] [address] [place] [address] PCP - General FAMILY PRACTICE 04/21/22 03/03/24 documented as of this encounter
--- OUTSIDE RECORDS SUMMARY | 2024-07-24 00:46 | XMS_ITS | Encounter Summary ---
Author Organization [facility] Address [address] [place] [address]. [place], [place] [address] [place] [address] Care Team Providers Care Rn Otolaryngology Name Role Phone Charley Cabrera MD Primary Care Provider [phone] Encounter Details Date Type Department Care Team (Late st Contact Info) Description 07/10/2022 [facility] Documentation [facility] Family & Internal Medicine [address] [address] Charley Cabrera [place] [address] [place] [address]. [address] [place] [address] Social History Tobacco Use Types [...] as of this encounter Progress Notes * Judy Koch - 07/10/2022 9:42 AM CST Sent 1st NO SHOW letter to patient per provider HT COORDINATOR documented in this encounter Plan of Treatment Upcoming Encounters Date Type Department Care Team (Late st Contact Info) Description 09/08/2024 10:10 AM FLIGHT COORDINATOR Office Visit [facility] Family Medicine - [place] [address] [place] [address] Samantha Sanders MD [address] [place] [address] documented as of this encounter Visit Diagnoses Not on filedocumented in this encounter Additional Health Concerns Assessment Noted Time PHQ-9 Depression Total Score: 0 04/21/20 2:28 PM CDT documented as of this encounter Care Teams Rn Otolaryngology Relationship Specialty Start [place] [address] [facility]. [address] [place], [place] [id number] PCP - General FAMILY PRACTICE 04/21/22 03/03/24 documented as of this encounter
--- OUTSIDE RECORDS SUMMARY | 2024-07-24 00:46 | XMS_ITS | Encounter Summary ---
Author Organization [facility] Address [address] [place] [address]. [place], [place] [id number] [place] [address] Care Team Providers Care Stamp Clerk Name Role Phone Charley Cabrera MD Primary Care Provider [phone] Encounter Details Date Type Department Care Team (Latest Contact Info) Description 07/11/2022 Travel Social History Tobacco Use Types Packs/Day [...] Coronavirus/COVID-19? No / Unsure 07/11/2022 12:46 PM DATA ENTRY MACHINE OPERATOR documented as of this encounter Plan of Treatment Upcoming Encounters Date Type Department Care Team ( Contact Info) Description 09/08/2024 10:10 AM DATA ENTRY MACHINE OPERATOR Office Visit [facility] Family Medicine - [place] [address] [facility] [address] [place] [address] Samantha Sanders MD [address] [place] [address] documented as of this encounter Visit Diagnoses Not on filedocumented in this encounter Additional Health Concerns Assessment Noted Time PHQ-9 Depression Total Score: 0 04/21/20 22 2:28 PM CDT documented as of this encounter Care Teams Stamp Clerk Relationship Specialty [place] [address] [facility] [place] [address] PCP - General FAMILY PRACTICE 04/21/22 03/03/24 documented as of this encounter
--- OUTSIDE RECORDS SUMMARY | 2024-07-24 00:46 | XMS_ITS | Encounter Summary ---
Author Organization [facility] Address [address] [place] [address]. [place], [place] [address] [place] [address] Care Team Providers Care Midwife Name Role Phone Charley Cabrera MD Primary Care Provider [phone] Encounter Details Date Type Department Care Team (Latest Contact Info) Description 04/21/2022 Travel Social History Tobacco Use Types Packs/Day [...] ( Contact Info) Description 09/08/2024 10:10 AM ALGOLOGIST Office Visit [facility] Family Medicine [place] [address] [facility] [address] [place] [address] Samantha Sanders MD [address] [place] [address] documented as of this encounter Visit Diagnoses Not on filedocumented in this encounter Additional Health Concerns Assessment Noted Time PHQ-9 Depression Total Score: 0 04/21/20 22 2:28 PM CDT documented as of this encounter Care Teams Midwife Relationship Specialty [place] [address] [facility] [facility] [place] [address] PCP - General FAMILY PRACTICE 04/21/22 03/03/24 documented as of this encounter
--- OUTSIDE RECORDS SUMMARY | 2024-07-24 00:46 | XMS_ITS | Encounter Summary ---
Author Organization [facility] Address [address] [place] [address]. [place], [place] [id number] [place] [address] Care Team Providers Care Glass Furnace Tender Name Role Phone Charley Cabrera MD Primary Care Provider [phone] Encounter Details Date Type Department Care Team (Latest Contact Info) Description 05/19/2022 Travel Social History Tobacco Use Types Packs/Day [...] ( Contact Info) Description 09/08/2024 10:10 AM AD COMPOSITOR Office Visit [facility] Family Medicine [place] [address] [facility] [address] [place] [address] Samantha Sanders MD [address] [place] [address] documented as of this encounter Visit Diagnoses Not on filedocumented in this encounter Additional Health Concerns Assessment Noted Time PHQ-9 Depression Total Score: 0 04/21/20 22 2:28 PM CDT documented as of this encounter Care Teams Glass Furnace Tender Relationship Specialty [place] [address] [facility] [place] [address] PCP - General FAMILY PRACTICE 04/21/22 03/03/24 documented as of this encounter
--- OUTSIDE RECORDS SUMMARY | 2024-07-24 00:46 | XMS_ITS | Encounter Summary ---
Author Organization [facility] Address [address] [place] [address]. [place], [place] [address] [place] [address] Care Team Providers Care Quarter Supervisor Name Role Phone Charley Cabrera MD Primary Care Provider [phone] Encounter Details Date Type Department Care Team (Latest Contact Info) Description 07/24/2022 Travel Social History Tobacco Use Types Packs/Day [...] Coronavirus/COVID-19? No / Unsure 07/24/2022 4:17 PM DRAFTER (CAD) ELECTRICAL documented as of this encounter Plan of Treatment Upcoming Encounters Date Type Department Care Team ( Contact Info) Description 09/08/2024 10:10 AM DRAFTER (CAD) ELECTRICAL Office Visit [facility] Family Medicine - [place] [address] [facility] [address] [place] [address] Samantha Sanders MD [address] [place] [address] documented as of this encounter Visit Diagnoses Not on filedocumented in this encounter Additional Health Concerns Assessment Noted Time PHQ-9 Depression Total Score: 0 04/21/20 22 2:28 PM CDT documented as of this encounter Care Teams Quarter Supervisor Relationship Specialty [place] [address] [address] [place] [address] PCP - General FAMILY PRACTICE 04/21/22 03/03/24 documented as of this encounter
--- OUTSIDE RECORDS SUMMARY | 2024-07-24 00:46 | XMS_ITS | Encounter Summary ---
Author Organization [facility] [place] [facility] Address [address] [place] [address]. [place], [place] [address] [place] [address] Care Team Providers Care Airport Refueling Handler Name Role Phone Charley Cabrera MD Primary Care Provider Encounter Details Date Type Department Care Team (Late st Contact Info) Description 06/27/2022 OVGuide Message Enc [facility] Medical [facility] Family & Internal Medicine [address] [address] [facility] Provider medication. Social History Tobacco Use Types Packs/Day Years [...] Progress Notes * Charley Cabrera MD - 07/09/2022 6:02 AM CST Will discuss with patient at appointment today EWATER TREATMENT ENGINEER * Alanna Capone RN - 07/07/2022 10:15 AM CST Please advise EWATER TREATMENT ENGINEER documented in this encounter Plan of Treatment Upcoming Encounters Date Type Department Care Team (Late st Contact Info) Description 09/08/2024 10:10 AM WASTEWATER TREATMENT ENGINEER Office Visit [facility] Medical [facility] Family Medicine - [place] [address] [place] [address] Samantha Sanders MD [address] [place] [address] documented as of this encounter Visit Diagnoses Not on filedocumented in this encounter Additional Health Concerns Assessment Noted Time PHQ-9 Depression Total Score: 0 04/21/20 22 2:28 PM CDT documented as of this encounter Care Teams Airport Refueling Handler Relationship Specialty [place] [address] [place] [address] PCP - General FAMILY PRACTICE 04/21/22 03/03/24 documented as of this encounter
--- OUTSIDE RECORDS SUMMARY | 2024-07-24 00:46 | XMS_ITS | Encounter Summary ---
Author Organization [facility] Address [address] [place] [address]. [place] [address] Care Team Providers Care Station Tender Name Role Phone Elena Cabrera MD Primary Care Provider [phone] Reason for Referral * Imaging (Routine) - Closed Specialty Diagnoses / Procedures Referred By [place] sar[place] Referred To Contact RADIOLOGY Diagnoses Abnormal thyroid ultrasound Thyroid cyst Procedures [place] [address] [place] [address] Phone: tel: fax: Referral ID Status Reason Start Date Expiration Date Visits Re quested Visits Authorized [id number] Closed 04/21/2022 04/21/2023 1 1 Reason for Visit * Imaging (Routine) - Closed Specialty Diagnoses / Procedures Referred By North sarah Referred To Contact RADIOLOGY Diagnoses Abnormal thyroid ultrasound Thyroid cyst Procedures [place] [address] [place] [address] Phone: tel: fax: Referral ID Status Reason Start Date Expiration Date Visits Re quested Visits Authorized [id number] Closed 04/21/2022 04/21/2023 1 1 Encounter Details Date Type Department Care Team (Latest Contact Info) Description 05/23/2022 3:00 PM CDT - 05/23/2022 11:59 PM CDT Hospital Encounter [facility] Ultrasound [address] [place] [address] [place] [address] [place] [address] Discharge Disposition: Home or Self Care (Routine [...] PM CDT documented as of this encounter Medications at Time of Discharge estradiol 1 MG tablet Take 1 tablet (1 mg total) by mouth daily. 12/11/2021 Multiple Vitamin (MULTIVITAMIN ADULT OR) Take by mouth daily. azelastine (AZELASTINE) 0.1 % nasal sprayIndications:Sea magda allergies 1 spray by Nasal route 2 (two) times daily. Use in each nostril as directed 30 mL 1 11/08/2021 3 buPROPion XL 150 MG 24 hr tabletIndications:De pression with anxiety Take 1 tablet (150 mg total) by mouth daily. 30 tablet 1 01/23/2022 3 busPIRone (BUSPAR) 7.5 MG tablet Take 7.5 mg by mouth 2 (two) times daily. 04/25/2022 3 estradiol (VIVELLE-DOT) 0.025 MG/24HR 3 lisdexamfetamine (VYVANSE) 40 MG capsuleIndications:A ttention deficit hyperactivity disorder (ADHD), combined type Take 1 capsule (40 mg total) by mouth every morning. 30 capsule 05/19/2022 2 loratadine (CLARITIN) 10 MG tabletIndications:Se asonal allergies Take 1 tablet (10 mg total) by mouth daily. 30 tablet 3 03/25/2022 3 naltrexone (DEPADE) 50 MG tablet Take 50 mg by mouth daily. 04/25/2022 3 pravastatin (PRAVACHOL) 40 MG tabletIndications:Mi xed hyperlipidemia Take 1 tablet (40 mg total) by mouth nightly at bedtime. 30 tablet 2 05/19/2022 4 Vitamin D, Cholecalciferol, 25 MCG (1000 UT) CapIndications:Vitam in D deficiency Take 1 tablet by mouth daily. 30 capsule 3 01/23/2022 3 documented as of this encounter Progress Notes * Elena Cabrera MD - 05/23/2022 3:00 PM CDT Cyst was >4mm last time. Shape and size not concerning. Not to worry ---Okay for ENT referral for evaluation as requested. ---she needs follow up in jul. Thanks ICAL ANTHROPOLOGIST documented in this encounter Plan of Treatment Upcoming Encounters Date Type Department Care Team (Late st Contact Info) Description 09/08/2024 10:10 AM PHYSICAL ANTHROPOLOGIST Office Visit [facility] Family Medicine - [place] [address] [place], [place] [id number] Samantha Sanders MD [address] [place] [address] documented as of this encounter Procedures Procedure Name Priority Date/Time Associated Diagnosis Comments US THYROID Routine 05/23/2022 3:32 PM CDT Abnormal thyroid ultrasound Thyroid cyst documented in this encounter Results * US THYROID (05/23/2022 [...] reporting thyroid imaging studies with management guidelines. https://www.acr.org/Clinical-Resources/Vkegnppmj-jnz-Atvz-Systems/TI-RADS Ordered By: ELENA CABRERA Interpreted By: Obie [...] and reporting thyroid imaging studies withmanagement guidelines. https://www.acr.org/Clinical-Resources/Qymdxfhme-lmg-Mgtk-Systems/TI-RADS Ordered By: ELENA CABRERA Interpreted By: Obie Mack MD, 05/23/2022 6:47 PM us Elena Cabrera MD ULTRASOUND Final Result documented in this encounter Visit Diagnoses Diagnosis Abnormal thyroid ultrasound Nonspecific abnormal results of thyroid function study Thyroid cyst Cyst of thyroid documented in this encounter Additional Health Concerns Assessment Noted Time PHQ-9 Depression Total Score: 0 04/21/20 22 2:28 PM CDT documented as of this encounter Care Teams Station Tender Relationship Specialty [place] [address] [place] [address] PCP - General FAMILY PRACTICE 04/21/22 03/03/24 documented as of this encounter
--- OUTSIDE RECORDS SUMMARY | 2024-07-24 00:46 | XMS_ITS | Encounter Summary ---
Author Organization [facility] Address [address] [place] [address]. [place], [place] [address] [place] [address] Care Team Providers Care Automatic Data Processing Planner Name Role Phone Charley Cabrera MD Primary Care Provider [phone] Reason for Visit * Reason Onset Date Comments Medication Problem 07/04/2022 Not Enougj Encounter Details Date Type Department Care Team (Late st Contact Info) Description 07/04/2022 Telephone [facility] Family & Internal Medicine [address] [address] Charley Cabrera MD [address] [place] [address]. [address] [place] [address] Medication Problem (Not Enougj) Social History Tobacco Use Types Packs/Day Years [...] Progress Notes * Charley Cabrera MD - 07/08/2022 10:33 PM CST Will discuss at apt tomorrow. EGE ADVISOR * Edna Nunez RN - 07/08/2022 11:10 AM CST Please advise. EGE ADVISOR * Edna Nunez RN - 07/08/2022 11:09 AM CST See note below. EGE ADVISOR * Ninfa Chi LPN - 07/04/2022 4:33 PM CST Pt called she wants the PA on the 5 pills or Vyvanse now please EGE ADVISOR * Carmen Sharpe MA - 07/04/2022 4:07 PM CST Spoke with provider who is watching over Dr. Cabrera's pts. Provider el stated that if she has enough to get her to her appointment, no to refilling early. Spoke with pharmacist Juanita about findingsand she will not refill till the 18 since he will have enough till the 19. Can discuss issues at next appointment. EGE ADVISOR * Ninfa Chi LPN - 07/04/2022 3:56 PM CST Sent teams message on chat line nursing staff responded they will look into this EGE ADVISOR * Ninfa Chi LPN - 07/04/2022 3:36 PM CST Pt said she spoke to Juanita at EGE ADVISOR * Ninfa Chi LPN - 07/04/2022 3:34 PM CST [facility] said they can not refill 5 vyvanse until our office calls they to confirm order is approved to fill early EGE ADVISOR * Charley Cabrera MD - 07/04/2022 10:30 AM CST 5 capsules sent EGE ADVISOR * Rosemary Raymond - 07/04/2022 8:51 AM CST Patient called and sthated that she will not have enough of the Vyvanse 40 mg before her she comes in on 07/09/22, She was given 11 pills on 06/27/22, ans she will run out of them by 07/07/22, so can she have two more pills to get her through to the 07/09/22. [facility] in [place] EGE ADVISOR documented in this encounter Plan of Treatment Upcoming Encounters Date Type Department Care Team (Late st Contact Info) Description 09/08/2024 10:10 AM COLLEGE ADVISOR Office Visit [facility] Family Medicine - [place] [address] [place] [address] Samantha Sanders MD [address] [place], [place] [id number] documented as of this encounter Visit Diagnoses Diagnosis Attention deficit hyperactivity disorder (ADHD), combined type documented in this encounter Additional Health Concerns Assessment Noted Time PHQ-9 Depression Total Score: 0 04/21/20 22 2:28 PM CDT documented as of this encounter Care Teams Automatic Data Processing Planner Relationship Specialty [place] [address] [facility] [place] [address] PCP - General FAMILY PRACTICE 04/21/22 03/03/24 documented as of this encounter
--- OUTSIDE RECORDS SUMMARY | 2024-07-24 00:46 | XMS_ITS | Encounter Summary ---
Author Organization [facility] Address [address] [place] [address]. [place], [place] [address] [place], [place] [id number] Care Team Providers Care Cell Room Operator Name Role Phone Charley Cabrera MD Primary Care Provider [phone] Reason for Visit * Reason Comments Medication Management Follow up Encounter Details Date Type Department Care Team (Late st Contact Info) Description 07/24/2022 4:20 PM POLICE COMMUNICATIONS DISPATCHER Office Visit [facility] Family & Internal Medicine [address] [address] [place] [id number] [place] [address]. [address] [place] [address] Medication Management (Follow up ) Social History Tobacco Use Types Packs/Day [...] Coronavirus/COVID-19? No / Unsure 07/24/2022 4:17 PM POLICE COMMUNICATIONS DISPATCHER documented as of this encounter Last Filed Vital Signs Vital Sign Reading Time Taken Comments Blood Pressure 101/65 07/24/2022 4:26 PM POLICE COMMUNICATIONS DISPATCHER Pulse 74 07/24/2022 4:26 PM POLICE COMMUNICATIONS DISPATCHER Temperature 37.6 ??C (99.6 ??F) 07/24/2022 4:26 PM CS T Respiratory Rate 20 07/24/2022 4:26 PM POLICE COMMUNICATIONS DISPATCHER Oxygen Saturation 100% 07/24/2022 4:26 PM POLICE COMMUNICATIONS DISPATCHER Inhaled Oxygen Concentration - - Weight 64.9 kg (143 lb) 07/24/2022 4:26 PM POLICE COMMUNICATIONS DISPATCHER Height 162.6 cm (5' 4 ) 07/24/2022 4:26 PM POLICE COMMUNICATIONS DISPATCHER Body Mass Index 24.55 07/24/2022 4:26 PM POLICE COMMUNICATIONS DISPATCHER documented in this encounter Progress Notes * Charley Cabrera MD - 07/24/2022 4:20 PM CST Reason for Visit: Medication Management (Follow up ) History of Present Illness: HPI Miss Karlie Ivory ??is a pleasant 47-year-old female with past medical history but not limited to anxiety, depression, ADHD, hyperlipidemia, chronic insomnia , status postlumpectomy, hysterectomy secondary to dysmenorrhea, ulcerative colitis in remission ADHD- OV- April - her vyvanse was decreased from 50 to 40 mg qD She did not notice a big difference. 1st month was a little different- She felt spasm in her job . Infact she feels less tired. Not as fatigued going down on the dose. She was on naltrexone per her psychiatrist- SOLEDAD COTA MD.She is no longer taking it. She states this is for her weight loss. 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 She states her OBGYN- gave her ativan as needed for Insomnia. She gets too sleepy. States she was not aware this is a controlled substance., She still has the script. Takes PRN. PDMP last refill 06/30. She states 2 nights ago. She took a marijuana gummy with mom. Specialist: Has seen psych in the past. For ADHD and situational depression.not been in therapy. 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 Endo for thyroid disease- Seen once and no follow ups needed. Dr. Weber Seeing ENT-cancelled apt.unsure if she needs to see them 3. GI- ulcerative colitis . No longer on treatment and states last colonoscopy was normal. No other concerns for today. ROS: Review [...] (two) times daily., Disp: , Rfl: ??? cyclobenzaprine (FLEXERIL) 5 MG tablet, Take 1 tablet (5 mg total) by mouth nightly as needed for Muscle Spasms., Disp: 30 tablet, Rfl: 0 ??? estradiol 1 MG tablet, Take 1 mg by mouth daily., Disp: , Rfl: ??? lisdexamfetamine (VYVANSE) 20 MG capsule, Take 1 capsule (20 mg total) by mouth every morning.,Disp: 30 [...] Behavior normal. Judgment: Judgment normal. Filed Vitals: 07/24/22 1626 BP: 101/65 Pulse: 74 Resp: 20 Temp: 99.6 ??F (37.6 ??C) TempSrc: Temporal SpO2: 100% Weight: 64.9 kg (143 lb) Height: 5' 4 (1.626 m) Diagnoses/Impression: 1. Attention deficit hyperactivity disorder (ADHD), combined type lisdexamfetamine (VYVANSE) 20 MG capsule 2. Medication management MG/PCCL UDS W CONF 3. Therapeutic drug monitoring MG/PCCL UDS W CONF 4. Thyroid cyst 5. Neck muscle spasm cyclobenzaprine (FLEXERIL) 5 MG tablet Recommendations and Plan: On slow vyvanse taper. Was originally at 70 mg daily when she started seeing me. PDMP last refill 07/11 for 15 tablets of Vyvanse. She had to pay out of pocket for this. Patient requested to be started on phentermine instead of Vyvanse for stimulants, if not covered byinsurance. ----Discussed her BMI being 24.5 now does not support prescription of phentermine for obesity anymore. I discussed with patient may be resuming care with psychiatrist if she needs to continue Vyvanse long-term and uanble to wean off. She also discussed may be Strattera. Would like to see first how prior authorization for Vyvanse goes. Orders Placed This Encounter ??? MG/PCCL UDS W CONF ??? DRUG MONITORING, TRAMADOL, QUANTITATIVE (U) ??? DRUG MONITORING, PRESCRIBED DRUGS MEDMATCH ??? DRUG MONITORING, PANEL 5, WITH CONFIRMATION (U) ??? DRUG MONITORING, FENTANYL, QUANTITATIVE (U) ??? DRUG MONITORING, HEROIN METABOLITE, WITH CONFIRMATION (U) ??? lisdexamfetamine (VYVANSE) 20 MG capsule ??? cyclobenzaprine (FLEXERIL) 5 MG tablet Reviewed and updated this visit by provider: Nathanael Cabrera MD Referring Provider: No ref. provider found PCP: Charley Cabrera MD CE COMMUNICATIONS DISPATCHER documented in this encounter Plan of Treatment Upcoming Encounters Date Type Department Care Team (Late st Contact Info) Description 09/08/2024 10:10 AM POLICE COMMUNICATIONS DISPATCHER Office Visit [facility] Family Medicine - [place] [address] [place] [id number] Samantha Sanders MD [address] [place] [id number] documented as of this encounter Procedures Procedure Name Priority Date/Time Associated Diagnosis Comments DRUG MONITORING, PANEL 5, WITH CONFIRMATION (U) Routine 07/24/2022 4:32 PM POLICE COMMUNICATIONS DISPATCHER DRUG MONITORING, PRESCRIBED DRUGS MEDMATCH Routine 07/24/2022 4:32 PM POLICE COMMUNICATIONS DISPATCHER DRUG MONITORING, FENTANYL, QUANTITATIVE (U) Routine 07/24/2022 4:32 PM POLICE COMMUNICATIONS DISPATCHER DRUG MONITORING, TRAMADOL, QUANTITATIVE (U) Routine 07/24/2022 4:32 PM POLICE COMMUNICATIONS DISPATCHER DRUG MONITORING, HEROIN METABOLITE, WITH CONFIRMATION (U) Routine 07/24/2022 4:32 PM POLICE COMMUNICATIONS DISPATCHER documented in this encounter Results * DRUG MONITORING, HEROIN METABOLITE, WITH CONFIRMATION (U) (07/24/2022 4:32 PM POLICE COMMUNICATIONS DISPATCHER) MORPHINE (U) NEGATIVE <10 ng/mL [facility] 07/24/2022 4:32 PM POLICE COMMUNICATIONS DISPATCHER 07/25/2022 3:33 AM POLICE COMMUNICATIONS DISPATCHER Narrative Resulting Agency Comment Performing Organization Information: ?Site ID: [id number] ?Name: [facility] ?Address: [address] [place] [id number] ?Director: Gal Vaca M.D. Charley Cabrera MD LABORATORY Final Result Performing Organization Address [facility] Co de Phone Number [facility] [place] [facility] [address] [place] [address] * DRUG MONITORING, FENTANYL, QUANTITATIVE (U) (07/24/2022 4:32 PM POLICE COMMUNICATIONS DISPATCHER) FENTANYL SCREEN (U) NEGATIVE <0.5 ng/mL [facility] 07/24/2022 4:32 PM POLICE COMMUNICATIONS DISPATCHER 07/25/2022 3:33 AM POLICE COMMUNICATIONS DISPATCHER Narrative Resulting Agency Comment Performing Organization Information: ?Site ID: [id number] ?Name: [facility] ?Address: [address] [place] [address] [employer] [place] [address] ?Director: Gal Vaca M.D. Charley Cabrera MD LABORATORY Final Result Performing Organization Address City/[facility]/ZIP Co de Phone Number [facility] [place] [facility] [address] [place] [address] * (ABNORMAL) DRUG MONITORING, PANEL 5, WITH CONFIRMATION (U) (07/24/2022 4:32 PM POLICE COMMUNICATIONS DISPATCHER) AMPHETAMINES PM POSITIVE(A) <500 ng/mL [facility] AMPHETAMINES PM CONFIRMATION (U) 12,147(H) <250 ng/mL [facility] AMPHETAMINES PM MEDMATCH CONF (U) CONSISTENT [facility] METHAMPHETAMINE PM (U) NEGATIVE <250 ng/mL [facility] AMPHETAMINES COMMENT [facility] Comment:See Amphetamines Not es, LDT Notes BARBITURATES PM (U) NEGATIVE <300 ng/mL [facility] BENZODIAZEPINES PM (U) POSITIVE(A) <100 ng/mL [facility] ALPHAHYDROXYALPRAZOLAM PM (U) 33(H) <25 ng/mL [facility] ALPHAHYDROXYALPRAZOLAM PM MEDMATCH (U) INCONSISTENT (A) [facility] MIDAZOLAM PM (U) NEGATIVE <50 ng/mL [facility] ALPHAHYDROXYTRIAZOLAM PM (U) NEGATIVE <50 ng/mL [facility] AMINOCLONAZEPAM PM (U) NEGATIVE <25 ng/mL [facility] OH ET FLURAZEPAM PM (U) NEGATIVE <50 ng/mL [facility] LORAZEPAM PM (U) NEGATIVE <50 ng/mL [facility] NORDIAZEPAM PM (U) NEGATIVE <50 ng/mL [facility] OXAZEPAM PM (U) NEGATIVE <50 ng/mL [facility] TEMAZEPAM PM NEGATIVE <50 ng/mL [facility] BENZODIAZEPINES COMMENTS [facility] Comment:See Benzodiazepines Notes, LDT Notes COCAINE METABOLITE PM (U) NEGATIVE <150 ng/mL [facility] MARIJUANA METABOLITE PM (U) POSITIVE(A) <20 ng/mL [facility] MARIJUANA METABOLITE PM CONF (U) 196(H) <5 ng/mL [facility] MARIJUANA METAB PM MM CONF (U) INCONSISTENT (A) [facility] MARIJUANA COMMENTS [facility] Comment:See Marijuana Notes, LDT Notes METHADONE PM (U) NEGATIVE <100 ng/mL [facility] OPIATES PM (U) NEGATIVE <100 ng/mL [facility] OXYCODONE PM (U) NEGATIVE <100 ng/mL [facility] CREATININE RANDOM URINE 242.1 > or = 20.0 mg/dL [facility] pH PM (U) 6.2 4.5 - 9.0 [facility] OXIDANT NEGATIVE <200 mcg/mL [facility] Note [facility] Comment: This drug testing is for medical treatment only. Analysis was performed as non-forensic testing and these results should be used only by healthcare providers to render diagnosis or treatment, or to monitor progress of medical conditions. Amphetamines Notes: Amphetamine detected is consistent with the use of the drug Amphetamine. Amphetamine can be a prescribed drug and is also a metabolite of methamphetamine. Benzodiazepines Notes: aOH Alprazolam detected is consistent with the use of the drug Alprazolam. Marijuana Notes: Marijuana Metabolite detected is consistent with exposure to Marijuana (THC) and/or hemp derived products. ?? Some jurisdictions do not include hemp within the definition of Marijuana. LDT Notes: Confirmation tests were developed and their analytical performance characteristics have been determined by [facility]. It has not been cleared or approved by the FDA. This assay has been validated pursuant to the CLIA regulations and is used for clinical purposes. medMATCH(R) enables providers to identify if drug use is consistent or inconsistent with a corresponding prescribed medication(s) list. Healthcare Providers needing Interpretation assistance, please contact us at [phone] ( ) M-F, 8am to 10pm EST 07/24/2022 4:32 PM POLICE COMMUNICATIONS DISPATCHER 07/25/2022 3:33 AM POLICE COMMUNICATIONS DISPATCHER Narrative Resulting Agency Comment Performing Organization Information: ?Site ID: ?Name: [facility] ?Address: [address] [place] [id number] ?Director: Gal Vaca M.D. ?Site ID: TALON ?Name: [facility] ?Address: [address] [id number] ?Director: Alonso Greco D.O., MPH us Chalrey Cabrera MD LABORATORY Final Result [facility] [place] [facility] [employer] [facility] [address] [place] [address] [facility] [address] [place] [address], * DRUG MONITORING, PRESCRIBED DRUGS MEDMATCH (07/24/2022 4:32 PM POLICE COMMUNICATIONS DISPATCHER) RESULT SUMMARY [facility] Comment: ?Prescribed ?Prescribed ?Not Prescribed ?Consistent ?Inconsistent ?Inconsistent ?Vyvanse(TM) ? Alphahydroxyalprazolam ?Marijuana Metabolite PRESCRIBED DRUG 1 (U) Vyvanse( TM) [facility] 07/24/2022 4:32 PM POLICE COMMUNICATIONS DISPATCHER 07/25/2022 3:33 AM POLICE COMMUNICATIONS DISPATCHER Narrative Resulting Agency Comment Performing Organization Information: ?Site ID: SC ?Name: [facility] ?Address: [address] [facility] [place] [address] ?Director: Alonso Greco D.O., MPH Charley Cabrera MD LABORATORY Final Result [facility] [place] [facility] [address] [facility] [place] [address], * DRUG MONITORING, TRAMADOL, QUANTITATIVE (U) (07/24/2022 4:32 PM POLICE COMMUNICATIONS DISPATCHER) DESMETHYLTRAMADOL (U) NEGATIVE <100 ng/mL [facility] TRAMADOL (U) NEGATIVE <100 ng/mL [facility] TRAMADOL COMMENTS [facility] Comment:See LDT Notes 07/24/2022 4:32 PM POLICE COMMUNICATIONS DISPATCHER 07/25/2022 3:33 AM POLICE COMMUNICATIONS DISPATCHER Narrative Resulting Agency Comment Performing Organization Information: ?Site ID: [id number] ?Name: [facility] ?Address: [address] [place] [id number] ?Director: Gal Vaca M.D. Charley Cabrera MD LABORATORY Final Result [facility] ALEXA [facility] [address] [place] [address] documented in this encounter Visit Diagnoses Diagnosis Attention deficit hyperactivity disorder (ADHD), combined type- Primary Medication management Encounter for long-term (current) use of other medications Therapeutic drug monitoring Encounter for therapeutic drug monitoring Thyroid cyst Cyst of thyroid Neck muscle spasm Spasm of muscle documented in this encounter Additional Health Concerns Assessment Noted Time PHQ-9 Depression Total Score: 0 04/21/20 22 2:28 PM CDT documented as of this encounter Care Teams Cell Room Operator Relationship Specialty [place] [address] [facility] [address] [place] [address] PCP - General FAMILY PRACTICE 04/21/22 03/03/24 documented as of this encounter
--- OUTSIDE RECORDS SUMMARY | 2024-07-24 00:46 | XMS_ITS | Encounter Summary ---
Author Organization [facility] Address [address] [place] [address]. [place], [place] [address] [place] [address] Care Team Providers Care Net Developer Name Role Phone Charley Cabrera MD Primary Care Provider [phone] Samantha Sanders MD Primary Care Provider + Encounter Details Date Type Department Care Team (Late st Contact Info) Description 07/30/2022 Aveillant Message Enc [facility] Family & Internal Medicine [address] [address] [employer], [facility] Provider Vadam Social History Tobacco Use Types Packs/Day Years [...] Coronavirus/COVID-19? No / Unsure 07/24/2022 4:17 PM NIPPLE MACHINE OPERATOR documented as of this encounter Plan of Treatment Upcoming Encounters Date Type Department Care Team (Late st Contact Info) Description 09/08/2024 10:10 AM NIPPLE MACHINE OPERATOR Office Visit [facility] Family Medicine - [place] [address] [place] [address] Samantha Sanders MD [address] [place] [address] documented as of this encounter Visit Diagnoses Not on filedocumented in this encounter Additional Health Concerns Infection Onset Date Last Indicated Resolved Time COVID-19 Rule Out 05/25/2023 05/25/2023 05/25/2023 10:11 AM NIPPLE MACHINE OPERATOR COVID-19 Confirmed 05/25/2023 05/25/2023 12:32 AM NIPPLE MACHINE OPERATOR Assessment Noted Time PHQ-9 Depression Total Score: 0 04/21/20 2:28 PM CDT documented as of this encounter Care Teams Net Developer Relationship Specialty [place] [address] [facility] [place] [address] PCP - General FAMILY PRACTICE 04/21/22 03/03/24 Samantha Sanders MD [address] [place] [address] PCP - General FAMILY PRACTICE 03/07/24 documented as of this encounter
--- OUTSIDE RECORDS SUMMARY | 2024-07-24 00:46 | XMS_ITS | Encounter Summary ---
Author Organization [facility] Address [address] [place] [address]. [place], [place] [address] [place] [address] Care Team Providers Care Neuro Ophthalmologist Name Role Phone Faith Galvez NP Primary Care Provider Charley Solorzano MD Primary Care Provider [phone] Samantha Sanders MD Primary Care Provider + Encounter Details Date Type Department Care Team (Late st Contact Info) Description 03/20/2022 ColdWatt Message Enc [facility] Family & Internal Medicine [address] [address] Faith Galvez NP Medication change Social History Tobacco Use Types Packs/Day Years [...] please move on to questions 3-9 0 09/05/2021 Comments No Sex and Gender Information Value Date Recorded Sex Assigned at Not on file Legal Sex Female 4:47 PM CDT Gender Identity Not on file Sexual Orientation Not on file COVID-19 Exposure Response Date Recorded In the last 10 days, have yo u been in contact with someone who was confirmed or suspected to have Coronavirus/COVID-19? No / Unsure 02/25/2022 9:42 AM CDT documented as of this encounter Progress Notes * Alanna Capone RN - 03/21/2022 11:08 AM CDT FYI * Alanna Capone RN - 03/20/2022 1:32 PM CDT . documented in this encounter Plan of Treatment Upcoming Encounters Date Type Department Care Team (Late st Contact Info) Description 09/08/2024 10:10 AM NATIONAL COVERAGE SPECIALIST Office Visit [facility] Family Medicine - [place] [address] [place] [address] Samantha Sanders MD [address] [place] [address] documented as of this encounter Visit Diagnoses Not on filedocumented in this encounter Additional Health Concerns Infection Onset Date Last Indicated Resolved Time COVID-19 Rule Out 05/25/2023 05/25/2023 05/25/2023 10:11 AM NATIONAL COVERAGE SPECIALIST COVID-19 Confirmed 05/25/2023 05/25/2023 12:32 AM NATIONAL COVERAGE SPECIALIST Assessment Noted Time PHQ-9 Depression Total Score: 5 09/05/19 22 10:09 AM NATIONAL COVERAGE SPECIALIST documented as of this encounter Care Teams Neuro Ophthalmologist Relationship Specialty Start Date End Date Faith Galvez NP PCP - General NURSE PRACTITIONER 05/23/21 04/20/22 [place] [address] [facility] [place] [address] PCP - General FAMILY PRACTICE 04/21/22 03/03/24 Samantha Sanders MD [address] [place] [address] PCP - General FAMILY PRACTICE 03/07/24 documented as of this encounter
--- OUTSIDE RECORDS SUMMARY | 2024-07-24 00:46 | XMS_ITS | Encounter Summary ---
Author Organization [facility] Address [address] [place] [address]. [place], [place] [address] [place] [address] Care Team Providers Care Business Ethics Professor Name Role Phone Charley Cabrera MD Primary Care Provider [phone] Samantha Sanders MD Primary Care Provider + Encounter Details Date Type Department Care Team (Late st Contact Info) Description 04/29/2022 QPID Health Message Enc [facility] Family & Internal Medicine [address] [address] [employer], [facility] Provider Cologuard Social History Tobacco Use Types Packs/Day Years [...] Contact Info) Description 09/08/2024 10:10 AM MANAGER OPERATIONS Office Visit [facility] Family Medicine - [place] [address] [place] [address] Samantha Sanders MD [address] [place] [address] documented as of this encounter Visit Diagnoses Not on filedocumented in this encounter Additional Health Concerns Infection Onset Date Last Indicated Resolved Time COVID-19 Rule Out 05/25/2023 05/25/2023 05/25/2023 10:11 AM MANAGER OPERATIONS COVID-19 Confirmed 05/25/2023 05/25/2023 12:32 AM MANAGER OPERATIONS Assessment Noted Time PHQ-9 Depression Total Score: 0 04/21/20 2:28 PM CDT documented as of this encounter Care Teams Business Ethics Professor Relationship Specialty Start [place] [address] [facility] [place] [address] PCP - General FAMILY PRACTICE 04/21/22 03/03/24 Samantha Sanders MD [address] [place] [address] PCP - General FAMILY PRACTICE 03/07/24 documented as of this encounter
--- OUTSIDE RECORDS SUMMARY | 2024-07-24 00:46 | XMS_ITS | Encounter Summary ---
Author Organization [facility] Address [address] [place] [address]. [place], [place] [address] [place] [address] Care Team Providers Care Cloth Painter Name Role Phone Charley Cabrera MD Primary Care Provider [phone] Samantha Sanders MD Primary Care Provider + Encounter Details Date Type Department Care Team (Late st Contact Info) Description 06/10/2022 Aviacode Message Enc [facility] Medical Group Family & Internal Medicine [address] [address] [employer], [facility] Provider urine drug screen Social History Tobacco Use Types Packs/Day Years [...] st Contact Info) Description 09/08/2024 10:10 AM RECYCLABLE PRODUCTS SORTER Office Visit [facility] Family Medicine - [place] [address] [place] [address] Samantha Sanders MD [address] [place] [address] documented as of this encounter Visit Diagnoses Not on filedocumented in this encounter Additional Health Concerns Infection Onset Date Last Indicated Resolved Time COVID-19 Rule Out 05/25/2023 05/25/2023 05/25/2023 10:11 AM RECYCLABLE PRODUCTS SORTER COVID-19 Confirmed 05/25/2023 05/25/2023 12:32 AM RECYCLABLE PRODUCTS SORTER Assessment Noted Time PHQ-9 Depression Total Score: 0 04/21/20 22 2:28 PM CDT documented as of this encounter Care Teams Cloth Painter Relationship Specialty Start [place] [address] [facility] [place] [address] PCP - General FAMILY PRACTICE 04/21/22 03/03/24 Samantha Sanders MD [address] [place] [address] PCP - General FAMILY PRACTICE 03/07/24 documented as of this encounter
--- OUTSIDE RECORDS SUMMARY | 2024-07-24 00:47 | XMS_ITS | Encounter Summary ---
Author Organization [facility] Address [address] [place] [address]. [place], [place] [id number] [place], [place] [id number] Care Team Providers Care Drafter Seismograph Name Role Phone Faith Galvez CITY COLLECTOR Primary Care Provider Unavailabl e Reason for Visit * Reason Onset Date Comments Medication 12/04/2021 Encounter Details Date Type Department Care Team (Late st Contact Info) Description 12/04/2021 Telephone [facility] Family & Internal Medicine [address] [phone] Faith Galvez, CITY COLLECTOR Medication Social History Tobacco Use Types Packs/Day Years Used Date Smoking Tobacco: Every Day Cigarettes 0.3 20 Smokeless Tobacco: Never Comments:cut back alot Alcohol Use Standard Drinks/Week Comments Yes 0 (1 standard drink = 0.6 oz pur e alcohol) 1 glass of wine a day AUDIT-C Answer Date Recorded Frequency of Alcohol [...] suspected to have Coronavirus/COVID-19? No / Unsure 11/07/2021 6:25 PM CDT documented as of this encounter Progress Notes * Alannanick Capone RN - 12/05/2021 5:00 PM CDT Visit scheduled for 12/06 * Ninfa Chi LPN - 12/05/2021 3:29 PM CDT Pt does not want to come in so will just request refill of dose that she is currently on no change * Natalie Mota MD - 12/05/2021 1:42 PM CDT Controlled needs to be done at time of visit especially if she would like a dose change. Already has appt scheduled * Alanna Capone RN - 12/05/2021 12:10 PM CDT Please advise * Mecca Perry - 12/05/2021 11:03 AM CDT Pt called checking to see if her Vyvanse is going to be refilled she is out as of today she wondering if it can be increased to 70 mg [facility] CB# [phone] * Alanna Capone RN - 12/04/2021 5:07 PM CDT Please advise * Shae Moore - 12/04/2021 4:06 PM CDT Karlie calling to request [facility] Pharm[facility]: [facility] # [phone] documented in this encounter Plan of Treatment Upcoming Encounters Date Type Department Care Team (Late st Contact Info) Description 09/08/2024 10:10 AM DIRECTOR PRISON Office Visit [facility] Family Medicine - [place] [address] [place], [place] [id number] Samantha Sanders MD [address] [place], [place] [id number] documented as of this encounter Visit Diagnoses Not on filedocumented in this encounter Additional Health Concerns Assessment Noted Time PHQ-9 Depression Total Score: 5 09/05/19 10:09 AM DIRECTOR PRISON documented as of this encounter Care Teams Drafter Seismograph Relationship Specialty Start Date End Date Faith Galvez, CITY COLLECTOR PCP - General NURSE PRACTITIONER 05/23/21 04/20/22 documented as of this encounter
--- OUTSIDE RECORDS SUMMARY | 2024-07-24 00:47 | XMS_ITS | Encounter Summary ---
Author Organization [facility] Address [address] [place] [address]. [place], [place] [id number] [place] [address] Care Team Providers Care Hat Finisher Name Role Phone Faith Galvez ASSET MANAGER Primary Care Provider Unavailabl e Encounter Details Date Type Department Care Team (Latest Contact Info) Description 06/20/2021 Travel Social History Tobacco Use Types Packs/Day Years Used Date Smoking Tobacco: Every Day Cigarettes 0.3 20 Smokeless Tobacco: Never Comments:provider to counselor/art therapist Alcohol Use Standard Drinks/Week Comments Yes 0 [...] 3, please move on to questions 3-9 2 05/23/2021 Comments No Sex and Gender Information Value Date Recorded Sex Assigned at Not on file Legal Sex Female 4:47 PM CDT Gender Identity Not on file Sexual Orientation Not on file COVID-19 Exposure Response Date Recorded In the last month, have you been in contact with someone who was confirmed or suspected to have Coronavirus / COVID-19? No / Unsure 06/20/2021 11:44 AM HULL SORTER documented as of this encounter Plan of Treatment Upcoming Encounters Date Type Department Care Team ( Contact Info) Description 09/08/2024 10:10 AM HULL SORTER Office Visit [facility] Family Medicine [facility] [address] [place] [address] Samantha Sanders MD [address] [place] [address] documented as of this encounter Visit Diagnoses Not on filedocumented in this encounter Additional Health Concerns Assessment Noted Time PHQ-9 Depression Total Score: 2 05/23/20 21 8:38 AM CDT documented as of this encounter Care Teams Hat Finisher Relationship Specialty Start Date End Date Faith Galvez, ASSET MANAGER PCP - General NURSE PRACTITIONER 05/23/21 04/20/22 documented as of this encounter
--- OUTSIDE RECORDS SUMMARY | 2024-07-24 00:47 | XMS_ITS | Encounter Summary ---
Author Organization [facility] Address [address] [place] [address]. [place], [place] [id number] [place] [address] Care Team Providers Care Suit Maker Name Role Phone Faith Galvez LEAD NUCLEAR MEDICINE TECHNOLOGIST Primary Care Provider Unavailabl e Encounter Details Date Type Department Care Team (Latest Contact Info) Description 06/05/2021 Travel Social History Tobacco Use Types Packs/Day Years Used Date Smoking Tobacco: Every Day Cigarettes 0.3 20 Smokeless Tobacco: Never Comments:provider to dependency counselor Alcohol Use Standard Drinks/Week Comments Yes 0 [...] have Coronavirus / COVID-19? No / Unsure 06/05/2021 12:58 PM COFFIN MAKER documented as of this encounter Plan of Treatment Upcoming Encounters Date Type Department Care Team ( Contact Info) Description 09/08/2024 10:10 AM COFFIN MAKER Office Visit [facility] Family Medicine [facility] [address] [place] [address] Samantha Sanders MD [address] [place] [address] documented as of this encounter Visit Diagnoses Not on filedocumented in this encounter Additional Health Concerns Assessment Noted Time PHQ-9 Depression Total Score: 2 05/23/20 21 8:38 AM CDT documented as of this encounter Care Teams Suit Maker Relationship Specialty Start Date End Date Faith Galvez, LEAD NUCLEAR MEDICINE TECHNOLOGIST PCP - General NURSE PRACTITIONER 05/23/21 04/20/22 documented as of this encounter
--- OUTSIDE RECORDS SUMMARY | 2024-07-24 00:47 | XMS_ITS | Encounter Summary ---
Author Organization [facility] Address [address] [place] [address]. [place], [place] [id number] [place] [address] Care Team Providers Care Food Service Assistant Name Role Phone Faith Frye MECHANICAL CAD DESIGNER Primary Care Provider Unavailabl e Reason for Visit * Reason Comments Thyroid Problem follow up * Consultation (Routine) - Closed Specialty Diagnoses / Procedures Referred By [place] Referred To Contact ENDOCRINOLOGY Diagnoses Goiter Faith Frye, DORINA [facility] Medical [facility] Diabetes and Endocrinology - [address] [address] Phone: tel: fax: Referral ID Status Reason Start Date Expiration Date Visits Re quested Visits Authorized [id number] Closed 06/06/2021 07/07/2022 99 99 Encounter Details Date Type Department Care Team (Latest Contact Info) Description 11/20/2021 1:20 PM CDT Telemedicine [facility] Medical [facility] Diabetes and Endocrinology - [address] [address] Siddhartha Simon MD Thyroid Problem (follow up ) Social History Tobacco Use Types Packs/Day Years Used Date Smoking Tobacco: Every Day Cigarettes 0.3 20 Smokeless Tobacco: Never Tobacco Cessation:Ready to Q [...] as of this encounter Progress Notes * Siddhartha Simon MD - 11/20/2021 1:20 PM CDT The reason for Visit: No chief complaint on file. PCP: FAITH FRYE NP I introduced and identified myself, received verbal consent from the patient to proceed with this video visit and made the patient aware that the same confidentiality and health information director practices apply. The patient joined the video visit from Home. I completed the virtual visit from Office. The following clinical staff helped with this visit Nurse: Susana Malloy. Total Time Spent in Minutes:20 Summary Karlie Ivory is a very pleasant 46-year-old female Known with Acne depression ADHD She was referred for a goiter Summary : Hx dates back to 01/2021: when she started noting symptoms . She denies having those symptoms before Family hx : negative History of Present Illness this visit Goiter Current medications of significance : MVI Current symptoms : Reports a neck fullness and Neck mass Also reports Weight gain,Fatigue and weakness + Edema Reports Compressive symptoms And Hoarseness of voice Denies Cold intolerance, Dyspnia on excertion , Cognitive dysfunction , Medications: Current Outpatient Medications: ??? amphetamine-dextroamphetamine (ADDERALL) 30 MG tablet, Take 1 tablet (30 mg total) by mouth daily., Disp: 30 tablet, Rfl: 0 ??? azelastine 0.1 % nasal spray, 1 spray in each nostril daily (Patient taking differently: as needed. 1 spray in each nostril daily), Disp: 30 mL, Rfl: 0 ??? buPROPion 75 MG tablet, Take 0.5 tablets (37.5 mg total) by mouth daily., Disp: 15 tablet, Rfl:3 ??? loratadine 10 MG tablet, Take 1 tablet (10 mg total) by mouth daily., Disp: 30 tablet, Rfl: 3 ??? Multiple Vitamin (MULTIVITAMIN ADULT OR), Take by mouth daily. , Disp: , Rfl: ??? pravastatin 20 MG tablet, Take 1 tablet (20 mg total) by mouth nightly at bedtime., Disp: 30 tablet, Rfl: 3 ??? SPIRONOLACTONE 50 MG tablet, TAKE 1 TABLET(50 MG) BY MOUTH DAILY, Disp: 10 tablet, Rfl: 0 ??? Vitamin D, Cholecalciferol, 25 MCG (1000 UT) Cap, Take by mouth daily. , Disp: , Rfl: No Known Allergies History: Past Medical History: Diagnosis Date ??? ADHD (attention deficit hyperactivity disorder) ??? Allergic rhinitis 05/10/2018 ??? Anxiety ??? Bowel obstruction (CMS/HCC) ??? Ulcerative (chronic) enterocolitis, other complication (CMS/HCC) ??? Ulcerative colitis (CMS/HCC) 04/15/2018 ??? Ulcerative colitis (CMS/HCC) Past Surgical History: Procedure Laterality Date ??? APPENDECTOMY ??? APPENDECTOMY ??? BREAST LUMPECTOMY Left ??? HERNIA REPAIR ??? HYSTERECTOMY Social History Social History Narrative Live alone with her dog Family History Problem Relation Name Age of Onset ??? Heart Mother ??? Heart Father ??? Heart Paternal Grandfather ??? Aneurysm Paternal Grandfather ??? Cancer Paternal Grandfather colon Review of Systems: Review of Systems All other systems reviewed and are negative. Vitals: There were no vitals filed for this visit. Physical Exam: Physical Exam Vitals and nursing note reviewed. HENT: Head: Normocephalic. Right Ear: External ear normal. Left Ear: External ear normal. Nose: Nose normal. Mouth/Throat: Mouth: Mucous membranes are moist. Eyes: Pupils: Pupils are equal, round, and reactive to light. Neck: Thyroid: No thyroid mass or thyromegaly. Cardiovascular: Rate and Rhythm: Normal rate and regular rhythm. Pulses: Normal pulses. Pulmonary: Effort: Pulmonary effort is normal. Abdominal: General: Abdomen is flat. Musculoskeletal: General: Normal range of motion. Cervical back: Normal range of motion. Skin: General: Skin is warm. Neurological: General: No focal deficit present. Mental Status: She is alert and oriented to person, place, and time. Psychiatric: Mood and Affect: Mood normal. Behavior: Behavior normal. Data: CREATININE S/P/B Date Value Ref Range Status 09/05/2021 0.75 0.55 - 1.02 MG/DL Final LDL (CALCULATED) Date Value Ref Range Status 09/05/2021 196 (H) <100 MG/DL Final TRIGLYCERIDE Date Value Ref Range Status 09/05/2021 206 (H) <150 MG/DL Final HDL Date Value Ref Range Status 09/05/2021 43 >40.0 MG/DL Final AST Date Value Ref Range Status 09/05/2021 29 15 - 37 U/L Final ALT Date Value Ref Range Status 09/05/2021 25 14 - 55 U/L Final TSH Date Value Ref Range Status 09/05/2021 1.161 0.358 - 3.74 uIU/ML Final Comment: HIGH DOSES OF BIOTIN MAY INTERFERE WITH THIS TEST RESULT. CORRELATION TO CLINICAL HISTORY AND PRESENTATION RECOMMENDED. FREE T4 Date Value Ref Range Status 09/05/2021 0.79 0.76 - 1.46 NG/DL Final Free T3 Date Value Ref Range Status 09/05/2021 3.2 2.18 - 3.98 PG/ML Final HGB Date Value Ref Range Status 09/05/2021 15.1 12.3 - 15.3 G/DL Final US THYROID Narrative: IMAGING STUDIES: US THYROID DATE: 09/03/2021 2:57 PM CLINICAL HISTORY: neck fullness . GOITER Comparison: No comparison Impression: IMPRESSION: 1. RIGHT THYROID GLAND MEASURES 4.8 x 1.3 x 1.4 cm. 2. LEFT THYROID GLAND MEASURES 4.7 x 1.3 x 1.2 cm. 3. FAIRLY HOMOGENEOUS ECHOTEXTURE TO THE THYROID GLAND WITHOUT FOCAL SOLID MASS. NORMAL COLOR FLOW. WITHIN THE MID ASPECT OF THE RIGHT LOBE OF THE THYROID GLAND THERE IS A FAIRLY WELL-DEFINED PROBABLE SLIGHTLY COMPLEX COLLOID CYST MEASURING 3.3 X 2.8 X 4.3 MM. Ordered By: SIDDHARTHA SIMON Interpreted By: Kevin Maier, 09/03/2021 3:46 PM Assessment and Plan Diagnoses and all orders for this visit: Goiter Euthyroid per TFT 01/2021 symptomatic for neck fullness Could not feel mass on exam last visit US thyroid 08/2021 : no thyromegaly or masses noted TFT 08/2021 : perfectly normal Recommendations: Her thyroid is perfectly normal: no intervention is indicated there Will refer her to ENT for her symptoms of a neck mass : she wants to wait on this, though Acne vulgaris Due to low estradiol related to age probably Testosterone and cortisol were normal On aldactone Recommendations: Ok to maintain aldactone Will discuss HRT with GRILL CHEF Siddahrtha Simon Referring Provider: Faith Frye NP PCP: FAITH FRYE NP * Susana Malloy LPN - 11/20/2021 1:20 PM CDT DX:goiter JUAN: 08/20/21 Labs: Concerns: -stiffness to neck Bottom of hear blotchy red line -looks like sunburn -started running walking- stop coffee no carbs and jeans so much thickness -cyst- lab 0.1 tsh level She feels like fasting been up 2 or 3 hours orange juice wants to know if ok to prescribe low dose thyroid meds -thisty more - could be allergys documented in this encounter Plan of Treatment Upcoming Encounters Date Type Department Care Team (Late st Contact Info) Description 09/08/2024 10:10 AM SCIENCE TUTOR Office Visit [facility] Family Medicine - [place] [address] [place] [address] Samantha Sanders MD [address] [place], [place] [id number] documented as of this encounter Visit Diagnoses Diagnosis Goiter- Primary Goiter, unspecified Acne vulgaris Other acne Neck mass Swelling, mass, or lump in head and neck documented in this encounter Additional Health Concerns Assessment Noted Time PHQ-9 Depression Total Score: 5 09/05/19 22 10:09 AM SCIENCE TUTOR documented as of this encounter Care Teams Food Service Assistant Relationship Specialty Start Date End Date Faith Frye, MECHANICAL CAD DESIGNER PCP - General NURSE PRACTITIONER 05/23/21 04/20/22 documented as of this encounter
--- OUTSIDE RECORDS SUMMARY | 2024-07-24 00:47 | XMS_ITS | Encounter Summary ---
Author Organization [facility] Address [address] [place] [address]. [place] [address] Care Team Providers Care Boiler Washer Name Role Phone Faith Frye FRONT FACER Primary Care Provider Unavailabl e Reason for Visit * Reason Comments Follow Up rash on both arms, i tching, and really dry. Having anxity again Encounter Details Date Type Department Care Team (Late st Contact Info) Description 09/25/2021 1:20 PM [facility]EL P[employer]DER [facility] Office Visit [facility] Family & Internal Medicine [address] [phone] Faith Frye, DORINA Follow Up (rash on both arms, itching, and really dry. 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 No / Unsure 09/25/2021 1:04 PM LAPEL P[employer]DER BL[employer]STITCH documented as of this encounter Last Filed Vital Signs Vital Sign Reading Time Taken Comments Blood Pressure 108/68 09/25/2021 1:14 PM [employer] P[employer] [facility] Pulse 100 09/25/2021 1:14 PM LAPEL P[employer]DER [facility] Temperature 36.3 ??C (97.3 ??F) 09/25/2021 1:14 PM CS T Respiratory Rate 20 09/25/2021 1:14 PM LAPEL P[employer]DER BLINDSTITCH Oxygen Saturation 98% 09/25/2021 1:14 PM LAPEL P[employer]DER BL[employer]ITCH Inhaled Oxygen Concentration - - Weight 73.5 kg (162 lb) 09/25/2021 1:14 PM LAPEL P[employer]DER BL[employer] Height 162.6 cm (5' 4 ) 09/25/2021 1:14 PM LAPEL P[employer]DER BL[employer]ITCH Body Mass Index 27.81 09/25/2021 1:14 PM LAPEL P[employer]DER BLINDSTITCH documented in this encounter Patient Instructions * Patient Instructions* Faith Frye NP - 09/25/2021 1:20 PM [employer]EL P[employer] Patient Education Patient Education Contact Dermatitis Discharge Instructions About this topic Contact dermatitis is the medical name for a kind of skin rash. You get this when your skin touchessomething that bothers it. Many things can cause your rash. You may have a rash if something is irritating your skin. An allergy can cause a rash and so can plants, soaps, and some kinds of metal. Treatment is to avoid the items that are causing problems. What care is needed at home? ?? Ask your doctor what you need to do when you go home. Make sure you ask questions if you do not understand what the doctor says. ?? Use an unscented cream or lotion to keep your skin moist. ?? Drink plenty of fluids to keep your body hydrated. ?? Bathe with cool or warm water. Do not use hot water. Pat yourself dry with a clean, thick, soft towel. Use mild and unscented soap, moisturizers, and deodorants. ?? At-home care to help with scratching: ? Wear gloves to protect skin on your hands. Try wearing cotton gloves under plastic gloves. Removeboth sets of gloves from time to time to prevent sweating. ? Keep nails short and clean. ? If you scratch in your sleep, wear white cotton gloves to bed. ? Try using cool compresses on the skin. They may help with swelling and itching. Dip a cloth in cold water and put it right on your itchy skin. What follow-up care is needed? Your doctor may ask you to make visits to the office to check on your progress. Be sure to keep these visits. Your doctor may discuss ways to test your skin to find out what caused this skin reaction. What drugs may be needed? The doctor may order drugs to: ?? Treat the allergy or the reaction ?? Help stop your skin irritation ?? Help with swelling ?? Stop itching or rashes ?? Prevent or help fight an infection Will physical activity be limited? You may not need to limit your physical activity. What problems could happen? Skin infections What can be done to prevent this health problem? Avoiding the offending substance is the best way to prevent future reactions. Sometimes, you are not able to fully avoid the substance that is causing your skin problem. Talk to your doctor about what to do if this is the case. These tips may help to prevent or lessen a skin reaction. ?? Wear clothing such as long pants, long sleeves, and gloves to protect your skin. ?? Ask your doctor for the name of creams that protect your skin. ?? Decrease the length of time and how often you come in contact with the item. ?? Rinse your skin with water or wash your skin with soap after direct contact. This helps to lowerthe chance of an allergic reaction to the skin. ?? Avoid using products on your skin that have scents or color in them. When do I need to call the doctor? ?? You start to have severe trouble breathing or swallowing (for example, you cannot speak in full sentences). ?? The rash spreads over large parts of your body and most of your skin becomes red. ?? It is becoming hard to breathe, but you can still talk in full sentences. ?? You have a fever of 100.4??F (38??C) or higher or chills. ?? You have signs of a wound infection like swelling, redness, warmth, pain, or drainage from the wound. Helpful tips ?? Avoid items where you don't know what is in them. They could have things in them that cause yourskin problems. Teach Back: Helping You Understand The Teach Back Method helps you understand the information we are giving you. After you talk with the staff, tell them in your own words what you learned. This helps to make sure the staff has described each thing clearly. It also helps to explain things that may have been confusing. Before going home, make sure you can do these: ?? I can tell you about my condition. ?? I can tell you how to care for my skin. ?? I can tell you what I will do if I have swelling, redness, or warmth around my sore. Where can I learn more? [employer] https://familydoctor.org/qwel-efzntgmh-qez-sh-kbtquqf-tpxoamgf-ylxf-xol-gfldaxx- skin-problems/ [employer] https://www.aad.org/public/diseases/eczema/types/contact-dermatitis Last Reviewed Date 2020-12-27 Consumer Information Use and Disclaimer This generalized information is a limited summary of diagnosis, treatment, and/or medication information. It is not meant to be comprehensive and should be used as a tool to help the user understand and/or assess potential diagnostic and treatment options. It does NOT include all information about conditions, treatments, medications, side effects, or risks that may apply to a specific patient. Itis not intended to be medical advice or a substitute for the medical advice, diagnosis, or treatment of a health care provider based on the health care provider's examination and assessment of a patient???s specific and unique circumstances. Patients must speak with a health care provider for complete information about their health, medical questions, and treatment options, including any risks orbenefits regarding use of medications. This information does not endorse any treatments or medications as safe, effective, or approved for treating a specific patient. [employer] and its affiliates disclaim any warranty or liability relating to this information or the use thereof. The use of this information is governed by the Terms of Use, available at https://www.[employer].Newser/en/solutions/lexicomp/about/gerri Copyright Copyright ?? 2020 [employer] and its affiliates and/or licensors. All rights reserved. Stop Vyvance and start Concerta 54 mg daily Give depo medrol today and prednisone 40 mg daily x 5 days Follow up in 1 month L PADDER BLINDSTITCH L PADDER BLINDSTITCH documented in this encounter Progress Notes * Faith Frye NP - 09/25/2021 1:20 PM CST Reason for Visit: Follow Up (rash on both arms, itching, and really dry. Having anxity again) History of Present Illness: Patient here for follow up of Vyvjared and reports that she don't feel like it is working. Reports that she has a rash to bilateral arms ROS: Review of Systems Constitutional: Negative. Negative for fatigue and fever. Respiratory: Negative. Negative for cough and shortness of breath. Cardiovascular: Negative. Negative for chest pain. Gastrointestinal: Negative for abdominal pain. Genitourinary: Negative. Musculoskeletal: Negative. Negative for back pain. Skin: Positive for rash (bilateral arms). Allergic/Immunologic: Negative. Negative for environmental allergies. Neurological: Negative. Hematological: Negative for adenopathy. Psychiatric/Behavioral: Positive for decreased concentration. Negative for suicidal ideas (Denies). Medications: Current Outpatient Medications: ??? azelastine 0.1 % nasal spray, 1 spray in each nostril daily (Patient taking differently: as needed. 1 spray in each nostril daily), Disp: 30 mL, Rfl: 0 ??? buPROPion 75 MG tablet, Take 0.5 tablets (37.5 mg total) by mouth daily., Disp: 15 tablet, Rfl:3 ??? lisdexamfetamine (VYVANSE) 40 MG capsule, Take 1 capsule (40 mg total) by mouth every morning.,Disp: 30 capsule, Rfl: 0 ??? Multiple Vitamin (MULTIVITAMIN ADULT [...] , Disp: , Rfl: No Known Allergies Past [...] Social History Socioeconomic History ??? Marital status: Spouse name: Not on file ??? Number of children: Not on file ??? Years of education: Not on file ??? Highest education level: Not on file Occupational History ??? Not on file Tobacco Use ??? Smoking status: Current Every Day Smoker Packs/day: 0.25 Years: 20.00 Pack years: 5.00 ??? Smokeless tobacco: Never Used ??? 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 Vaping Use: Never used Substance and Sexual Activity ??? Alcohol use: Yes Comment: 1 glass of wine a day ??? Drug use: No ??? Sexual activity: Not Currently control/protection: Surgical Other Topics Concern ??? Not on file Social History Narrative Live alone with her dog Social Determinants of Health Financial Resource Strain: Not on file Food Insecurity: Not on file Transportation Needs: Not on file Physical Activity: Not on file Stress: Not on file Social Connections: Not on file Intimate Partner Violence: Not on file Family History Problem Relation Name Age of Onset ??? Heart Mother ??? Heart Father ??? Heart Paternal Grandfather ??? Aneurysm Paternal Grandfather ??? Cancer Paternal Grandfather colon Family Status Relation Name Status ??? Mother Alive ??? Father Alive ??? PGF PHQ-9: Over the last two weeks, how often have you been bothered by any of the following problems? 08/20/2021 09/05/2021 LITTLE INTEREST OR PLEASURE IN DOING THINGS 0-Not at All 0-Not at All FEELING DOWN, DEPRESSSED,OR HOPELESS 0-Not at All 0-Not at All PHQ2 DEPRESSION TOTAL SCORE 0 0 TROUBLE FALLING OR STAYING ASLEEP OR SLEEPING TOO MUCH - 1-Several Days FEELING TIRED OR HAVING LITTLE ENERGY - 3-Nearly every day POOR APPETITE OR OVEREATING - 0-Not at All FEELING BAD ABOUT YOURSELF - 0-Not at All TROUBLE CONCENTRATING ON THINGS - 1-Several Days MOVING OR SPEAKING SO SLOWLY THAT OTHER PEOPLE COULD HAVE NOTICED - 0-Not at All THOUGHTS THAT YOU WOULD BE BETTER OFF - 0-Not at All DEPRESSION SCREENING TOTAL SCORE 0 5 IF YOU CHECKED OFF ANY PROBLEMS - - Physical Exam Constitutional: General: She is not in acute distress. Appearance: Normal appearance. She is not ill-appearing. HENT: Head: Normocephalic. Nose: Nose normal. No congestion. Mouth/Throat: Mucous membranes are moist. No posterior oropharyngeal erythema. Eyes: Pupils: Pupils are equal, round, and reactive to light. Cardiovascular: Rate and Rhythm: Normal rate and regular rhythm. Pulmonary: Effort: Pulmonary effort is normal. Chest: Chest wall: No tenderness. Abdominal: Palpations: Abdomen is soft. Tenderness: There is no abdominal tenderness. Musculoskeletal: General: No swelling. Normal range of motion. Cervical back: Normal range of motion. Skin: General: Skin is warm and dry. Findings: Rash (papular rash to bilateral arms) present. Neurological: Mental Status: She is alert and oriented to person, place, and time. Psychiatric: Mood and Affect: Mood normal. Behavior: Behavior normal. I spent 35 minutes today reviewing the patient's medical record, obtaining history, performing an exam, ordering medications, tests, and/or procedures, documenting in the medical record, counseling and educating the patient/family/caregiver, reviewing and communicating test results and coordinationof care. Filed Vitals: 09/25/21 1314 BP: 108/68 Pulse: 100 Resp: 20 Temp: 97.3 ??F (36.3 ??C) TempSrc: Temporal SpO2: 98% Weight: 73.5 kg (162 lb) Height: 5' 4 (1.626 m) Assessment Encounter Diagnose(s) ICD-10-CM ICD-9-CM SNOMED CT(R) 1. Attention deficit hyperactivity disorder (ADHD), combined type F90.2 314.01 ATTENTION DEFICIT HYPERACTIVITY DISORDER, COMBINED TYPE 2. Contact dermatitis, unspecified contact dermatitis type, unspecified trigger L25.9 692.9 CONTACTDERMATITIS Recommendations and Plan: Stop Vyvance and start Concerta 54 mg daily Give depo medrol today and prednisone 40 mg daily x 5 days Follow up in 1 month 1. Attention deficit hyperactivity disorder (ADHD), combined type As below - methylphenidate CR (CONCERTA) 54 MG tablet; Take 1 tablet (54 mg total) by mouth every morning. Dispense: 30 tablet; Refill: 0 2. Contact dermatitis, unspecified contact dermatitis type, unspecified trigger As below - methylPREDNISolone acetate (DEPO-Medrol) injection 40 mg - predniSONE 20 MG tablet; Take 2 tablets (40 mg total) by mouth daily for 5 days. Dispense: 10 tablet; Refill: 0 FAITH FRYE NP 09/25/2021 1:38 PM Cosigned by Anil Philip MD at 09/25/2021 2:51 PM [facility] P[employer]DER BL[facility]STITCH L PADDER BLINDSTITCH L PADDER BLINDSTITCH documented in this encounter Plan of Treatment Upcoming Encounters Date Type Department Care Team (Late st Contact Info) Description 09/08/2024 10:10 AM [employer] P[employer]DER BL[employer]STITCH Office Visit [facility] Family [facility] - [place] [address] [facility] [address] [place] [id number] Samantha Sanders MD [address] [facility] [address] [place] [id number] documented as of this encounter Visit Diagnoses Diagnosis Attention deficit hyperactivity disorder (ADHD), combined type- Primary Contact dermatitis, unspecified contact dermatitis type, unspecified trigger documented in this encounter Administered Medications Inactive Administered Medications - up to 3 most recent administrations Medication Order MAR Action Action Date Dose Rate Site methylPREDNISolone acetate (DEPO-Medrol) injection 40 mg 40 mg, Intramuscular, Once, 1 dose, On Thu09/25/21 at 1400, [place] WellIndications:Contact dermatitis, unspecified contact dermatitis type, unspecified trigger Given 09/25/2021 2:53 PM [employer] P[employer] BL[employer]STITCH 40 mg Left Dorsal Gluteal documented in this encounter Additional Health Concerns Assessment Noted Time PHQ-9 Depression Total Score: 5 09/05/19 10:09 AM [employer] P[employer]DER BL[employer] documented as of this encounter Care Teams Boiler Washer Relationship Specialty Start Date End Date Faith Frye, FRONT FACER PCP - General NURSE PRACTITIONER 05/23/21 04/20/22 documented as of this encounter
--- OUTSIDE RECORDS SUMMARY | 2024-07-24 00:47 | XMS_ITS | Encounter Summary ---
Author Organization [facility] Address [address] [place] [address]. [place] [address] Care Team Providers Care Dermatology Specialist Name Role Phone Faith Frye HEALTH INFORMATION TECHNICIAN Primary Care Provider Unavailabl e Reason for Visit * Reason Comments Follow Up Medication f/u, Need s something for sleep. Has questions about meds. Encounter Details Date Type Department Care Team (Late st Contact Info) Description 07/09/2021 2:20 PM COUNSELING AIDE Office Visit [facility] Family & Internal Medicine [address] [phone] Faith Frye, DORINA Follow Up (Medication f/u, Needs something for sleep. Has questions about meds.) Social History Tobacco Use Types Packs/Day Years Used Date Smoking Tobacco: Every Day Cigarettes 0.3 20 Smokeless Tobacco: Never Tobacco Cessation:Counseling Given: No Comments:provider to mental health counselor Alcohol Use Standard Drinks/Week Comments Yes [...] have Coronavirus / COVID-19? No / Unsure 07/09/2021 2:09 PM COUNSELING AIDE documented as of this encounter Last Filed Vital Signs Vital Sign Reading Time Taken Comments Blood Pressure 102/72 07/09/2021 2:49 PM COUNSELING AIDE Pulse 95 07/09/2021 2:49 PM COUNSELING AIDE Temperature 36.4 ??C (97.6 ??F) 07/09/2021 2:49 PM CS T Respiratory Rate 18 07/09/2021 2:49 PM COUNSELING AIDE Oxygen Saturation 99% 07/09/2021 2:49 PM COUNSELING AIDE Inhaled Oxygen Concentration - - Weight 73.3 kg (161 lb 9.6 oz) 07/09/2021 2:49 P M COUNSELING AIDE Height 154.9 cm (5' 1 ) 07/09/2021 2:49 PM COUNSELING AIDE Body Mass Index 30.53 07/09/2021 2:49 PM COUNSELING AIDE documented in this encounter Patient Instructions * Patient Instructions* Faith Frye NP - 07/09/2021 2:20 PM COUNSELING AIDE Patient Education Patient Education Obesity Discharge Instructions, Adult About this topic Obesity is a health problem where your weight is higher than it should be. Doctors use a method called body mass index or BMI to measure whether you are at a healthy weight for your height. The doctor uses your weight and your height to determine your BMI. A high BMI can be an indicator of high body fat. Obesity is different from being overweight. Being overweight means your BMI is 25 or higher. Being obese means your BMI is 30 or higher. If your BMI is 40 or higher, you are considered severelyor morbidly obese. Being obese may lead to many health problems. It may make it hard for you to breathe and move easily. It may raise your risk for illnesses like high blood sugar and heart disease. What care is needed at home? ?? Ask your doctor what you need to do when you go home. Make sure you understand everything the doctor says. This way you will know what you need to do. ?? Change your diet. Lower the calories in your diet. Ask your dietitian to help you set an eating plan that is right for you. ?? Get enough exercise. Talk to your doctor about the right amount of exercise for you. ?? Do not smoke. ?? Limit the amount of beer, wine, and mixed drinks (alcohol) you drink. ?? Keep a record of your weight. Write down what you eat and drink each day. This may help you be more aware of the choices you are making. What drugs may be needed? The doctor may order drugs to: ?? Treat health problems that may cause weight gain ?? Lower your appetite ?? Help you lose weight Will physical activity be limited? ?? Talk to your doctor about the right amount of exercise for you. This is especially important if you have heart problems, other illnesses, or if you recently had surgery. ?? Start slowly by doing more everyday activities like yard work or line haul truck driver. ?? Choose activities that you like to do. What changes to diet are needed? ?? Whole grains are a good source of carbohydrates and fiber. Try to eat 3 to 5 servings of whole grain, high fiber foods each day. These are things like whole grain bread, bran cereals, brown rice, and whole wheat pasta. ?? Fruits and vegetables are good sources of fiber, vitamins, and minerals. Try to pick many kinds and colors. This will help you get different nutrients in your diet. Choose fresh, frozen, or cannedfruits and vegetables. Buy plain, frozen fruits without added sugar. Buy plain, frozen vegetables without added salt and fat. Buy canned fruit in 100% juice or water. Avoid canned fruit in syrups. Buy canned vegetables with no salt added. ?? Milk is a good source of protein and some vitamins and minerals. Choose low- fat (1%) or fat-freemilk. Eat nonfat or low-fat cheeses, ice creams, yogurt, and other dairy products. ?? Meats and beans are good sources of protein and iron. Eat more low-fat or lean meats like chicken without the skin, turkey without the skin, and fish. Eggs and peanut butter are good sources of protein as well. Dried peas, beans, and lentils are also good and contain fiber. Fatty fish, like salmon, tuna, mackerel, lucio, and trout, are good to eat and have healthy omega-3 fats. ?? Good fats can give you long-term energy. These are found in fish, nuts, seeds, and avocados. Tryusing olive oil, safflower oil, and low-sodium, low-fat salad dressing as a topping on foods. Use canola, olive, or peanut oil for cooking. Other healthy oils include corn, sunflower, and soybean oils. ?? Limit sweets such as candy and sugary drinks. Try to drink water instead. Drink diet or no calorie beverages when you want something other than water. ?? Cut back on solid fats, like butter, lard, and coconut oil. ?? Limit fatty foods such as desserts, fried foods, and chips. ?? Trans fats should be avoided. Most trans fats are found in processed foods, commercially baked goods, and fried foods and are very unhealthy. Saturated fat, which is different from trans fat, should be watched and limited if portions are too large. Saturated fat is found mainly in animal sources, such as meat and dairy products. Saturated fat is also found in coconut and palm oils. ?? Limit processed meats and most processed foods. ?? Limit eating out. If you choose to visit a restaurant, ask for the nutritional facts. You may also be able to find nutritional facts online. Then, you can make a plan and choose healthy items. Watch the portion size. Have large portions split and take part home for some other meal. What problems could happen? ?? Low mood or self-esteem ?? Anxiety ?? Muscle pain, joint pain, or arthritis ?? Sleep apnea ?? Diabetes ?? High blood pressure ?? High cholesterol ?? Heart, lung, or breathing problems ?? Kidney or liver problems ?? Cancer ?? Gallstones ?? Increased sweating ?? Reduced fertility ?? complications ?? Gastroesophageal reflux disease When do I need to call the doctor? ?? Signs of high or low blood sugar ?? Thoughts of hurting yourself Teach Back: Helping You Understand The Teach [...] my condition. ?? I can tell you what changes I need to make with my diet or drugs. ?? I can tell you what I will do if I have signs of a heart attack or stroke. Where can I learn more? Centers for Disease Control and Prevention http://www.cdc.gov/obesity/adult/defining.html NHS http://www.nhs.uk/Conditions/Obesity/Pages/obesityprevention.aspx Last Reviewed Date 2021-01-09 Consumer Information Use and Disclaimer This information is not specific medical advice and does not replace information you receive from your health care provider. This is only a brief summary of general information. It does NOT include all information about conditions, illnesses, injuries, tests, procedures, treatments, therapies, discharge instructions or life-style choices that may apply to you. You must talk with your health care provider for complete information about your health and treatment options. This information should not be used to decide whether or not to accept your health care provider???s advice, instructions or recommendations. Only your health care provider has the knowledge and training to provide advice that is right for you. Copyright Copyright ?? 2020 [employer]. and its affiliates and/or licensors. All rights reserved. Follow up in 1 month Refilled phentermine Obesity: Pt has elevated weight with BMI Body mass index is 30.53 kg/m??., and will need to work hard on reducing carbohydrates and total calories. They may use the free smart phone apps such as Elepath to help track calories and try to reduce by 15% every 4 weeks. They should also work on reducing their total portion sizes to try to reduce the size of their stomach. They should be exercising about 30 minutes every day with cardio work outs. They should strive to avoid regular soda, juices and alcohol. Recommended limiting GPS foods (Grains, Potatoes, Sugars) as much as possible. Eating foot that it is not highly processed and that they can recognize. Eating when they are hungry and n ot by a time schedule. We aim to have them lose about 1 pound per week and 5 pounds per month. If they are working hard and not succeeding we may consider using weight loss medications in the future but these do come with risks. SELING AIDE documented in this encounter Progress Notes * Faith Frye NP - 07/09/2021 2:20 PM CST Reason for Visit: Follow Up (Medication f/u, Needs something for sleep. Has questions about meds.) History of Present Illness: Pt. Here for weight loss follow up. Pt. Taking Phentermine and lost no weight since last visit. Denies any shortness of breath or chest pains. States that she feels like the medication is helping. ROS: Review of Systems Constitutional: Negative. Negative for fatigue and fever. Respiratory: Negative. Negative for cough and shortness of breath. Cardiovascular: Negative. Negative for chest pain. Genitourinary: Negative. Skin: Negative. Allergic/Immunologic: Negative. Negative for environmental allergies. Neurological: Negative. Hematological: Negative for adenopathy. Psychiatric/Behavioral: Negative for suicidal ideas (Denies). The patient is nervous/anxious. Medications: Current Outpatient Medications: ??? azelastine 0.1 % nasal spray, 1 spray in each nostril daily, Disp: 30 mL, Rfl: 0 ??? buPROPion 75 MG tablet, Take 0.5 tablets (37.5 mg total) by mouth daily., Disp: 15 tablet, Rfl: 3 ??? Eszopiclone 3 MG Tab, TAKE 1 TABLET BY MOUTH AT BEDTIME, Disp: 30 tablet, Rfl: 0 ??? Multiple Vitamin (MULTIVITAMIN ADULT OR), , Disp: , Rfl: ??? phentermine 37.5 MG tablet, Take 1 tablet (37.5 mg total) by mouth every morning before breakfast for 30 days., Disp: 30 tablet, Rfl: 0 ??? spironolactone 50 MG tablet, Take 1 tablet (50 mg total) by mouth daily., Disp: 30 tablet, Rfl:0 ??? traZODone 50 MG tablet, Take 1 tablet (50 mg total) by mouth nightly at bedtime for 30 days., Disp: 30 tablet, Rfl: 0 ??? Vitamin D, Cholecalciferol, 25 MCG (1000 UT) Cap, , Disp: , Rfl: No Known Allergies Past Medical History: Diagnosis Date ??? ADHD (attention deficit hyperactivity disorder) ??? Allergic rhinitis 05/10/2018 ??? Anxiety ??? Bowel obstruction (CMS/HCC) ??? Ulcerative (chronic) enterocolitis, other complication (CMS/HCC) ??? Ulcerative colitis (CMS/HCC) 04/15/2018 Past Surgical History: Procedure Laterality Date ??? [...] Never Used ??? Tobacco comment: provider to mental health counselor Vaping Use ??? Vaping Use: Never [...] Mother Alive ??? Father Alive ??? PGF (Not Specified) PHQ-9: Over the last two weeks, how often have you been bothered by any of the following problems? 12/18/2020 05/23/2021 LITTLE INTEREST OR PLEASURE IN DOING THINGS 0-Not at All 1-Several Days FEELING DOWN, DEPRESSSED,OR HOPELESS 0-Not at All 1-Several Days PHQ2 DEPRESSION TOTAL SCORE 0 2 TROUBLE FALLING OR STAYING ASLEEP OR SLEEPING TOO MUCH 1-Several Days - FEELING TIRED OR HAVING LITTLE ENERGY 1-Several Days - POOR APPETITE OR OVEREATING 0-Not at All - FEELING BAD ABOUT YOURSELF 0-Not at All - TROUBLE CONCENTRATING ON THINGS 0-Not at All - MOVING OR SPEAKING SO SLOWLY THAT OTHER PEOPLE COULD HAVE NOTICED 0-Not at All - THOUGHTS THAT YOU WOULD BE BETTER OFF 0-Not at All - DEPRESSION SCREENING TOTAL SCORE 2 2 IF YOU CHECKED OFF ANY PROBLEMS Somewhat difficult - Physical Exam Constitutional: General: She is not in acute distress. Appearance: She is obese. She is not ill-appearing. HENT: Nose: No congestion. Mouth/Throat: Mucous membranes are moist. No posterior oropharyngeal erythema. Eyes: Pupils: Pupils are equal, round, and reactive to light. Cardiovascular: Rate and Rhythm: Normal rate and regular rhythm. Pulmonary: Effort: Pulmonary effort is normal. Chest: Chest wall: No tenderness. Abdominal: Palpations: Abdomen is soft. Tenderness: There is no abdominal tenderness. Neurological: Mental Status: She is alert and oriented to person, place, and time. Psychiatric: Mood and Affect: Mood is anxious. Behavior: Behavior normal. Filed Vitals: 07/09/21 1449 BP: 102/72 Pulse: 95 Resp: 18 Temp: 97.6 ??F (36.4 ??C) TempSrc: Temporal SpO2: 99% Weight: 73.3 kg (161 lb 9.6 oz) Height: 5' 1 (1.549 m) Assessment Encounter Diagnose(s) ICD-10-CM ICD-9-CM SNOMED CT(R) 1. Class 1 obesity due to excess calories without serious comorbidity with body mass index (BMI) of30.0 to 30.9 in adult E66.09 278.00 OBESITY phentermine 37.5 MG tablet Z68.30 V85.30 Recommendations and Plan: FAITH FRYE NP 07/09/2021 3:25 PM Cosigned by Anil Philip MD at 07/09/2021 6:49 PM COUNSELING AIDE SELING AIDE SELING AIDE documented in this encounter Plan of Treatment Upcoming Encounters Date Type Department Care Team (Late st Contact Info) Description 09/08/2024 10:10 AM COUNSELING AIDE Office Visit [facility] Family Medicine - [place] [address] [place] [phone] Samantha Sanders MD [address] [place], [place] [phone] documented as of this encounter Visit Diagnoses Diagnosis Class 1 obesity due to excess calories without serious comorbidity with body mass index (BMI) of 30.0 to 30.9 in adult- Primary documented in this encounter Additional Health Concerns Assessment Noted Time PHQ-9 Depression Total Score: 2 05/23/20 21 8:38 AM CDT documented as of this encounter Care Teams Dermatology Specialist Relationship Specialty Start Date End Date Faith Frye, HEALTH INFORMATION TECHNICIAN PCP - General NURSE PRACTITIONER 05/23/21 04/20/22 documented as of this encounter
--- OUTSIDE RECORDS SUMMARY | 2024-07-24 00:47 | XMS_ITS | Encounter Summary ---
Author Organization [facility] Address [address] [place] [address]. [place], [place] [id number] [place] [address] Care Team Providers Care Fast Food Cashier Name Role Phone Faith Galvez HATCH BOSS Primary Care Provider Unavailabl e Encounter Details Date Type Department Care Team (Latest Contact Info) Description 09/25/2021 Travel Social History Tobacco Use Types Packs/Day Years Used Date Smoking Tobacco: Every Day Cigarettes 0.3 20 Smokeless Tobacco: Never Comments:provider to world travel counselor Alcohol Use Standard Drinks/Week Comments Yes [...] Coronavirus/COVID-19? No / Unsure 09/25/2021 1:04 PM EDUCATIONAL COORDINATOR documented as of this encounter Plan of Treatment Upcoming Encounters Date Type Department Care Team ( Contact Info) Description 09/08/2024 10:10 AM EDUCATIONAL COORDINATOR [facility] [address] [place] [address] Samantha Sanders MD [address] [place] [phone] documented as of this encounter Visit Diagnoses Not on filedocumented in this encounter Additional Health Concerns Assessment Noted Time PHQ-9 Depression Total Score: 5 09/05/19 22 10:09 AM EDUCATIONAL COORDINATOR documented as of this encounter Care Teams Fast Food Cashier Relationship Specialty Start Date End Date Faith Galvez, HATCH BOSS PCP - General NURSE PRACTITIONER 05/23/21 04/20/22 documented as of this encounter
--- OUTSIDE RECORDS SUMMARY | 2024-07-24 00:47 | XMS_ITS | Encounter Summary ---
Author Organization [facility] Address [address] [place] [address]. [place], [place] [phone] [place], [place] [id number] Care Team Providers Care Insert Operator Name Role Phone Faith Gavlez EXPLOSIVES OPERATOR Primary Care Provider Unavailabl e Reason for Visit * Reason Onset Date Comments Medication 06/17/2021 Encounter Details Date Type Department Care Team (Late st Contact Info) Description 06/17/2021 Telephone [facility] Medical [facility] Family & Internal Medicine [address] [address] Faith Galvez, EXPLOSIVES OPERATOR Medication Social History Tobacco Use Types Packs/Day Years Used Date Smoking Tobacco: Every Day Cigarettes 0.3 20 Smokeless Tobacco: Never Comments:provider to career placement services counselor Alcohol Use Standard Drinks/Week Comments Yes [...] COVID-19? No / Unsure 06/05/2021 12:58 PM LABORER PRESTRESSED CONCRETE documented as of this encounter Progress Notes * Radha Ortiz RN - 06/17/2021 1:46 PM CST Appt made on 06/20/21 at 1140 RER PRESTRESSED CONCRETE * Faith Galvez NP - 06/17/2021 1:29 PM CST Yes RER PRESTRESSED CONCRETE * Radha Ortiz RN - 06/17/2021 9:35 AM CST Appt? RER PRESTRESSED CONCRETE * Shae Moore - 06/17/2021 9:13 AM CST Karlie called states she started a week and half ago with ear blockage / pressure, now has sinus drainage, turning from clear to green, no fever, no body aches, Sinus headache between her eyes. She is asking if something can be called in ? States she gets this every year Asking for zpack and diflucan as she usually ends up with a yeast infection. [facility] Informed her I did not think Faith would call anything in without seeing her, informed her I would have an opening on Thursday. She wanted me to ask before scheduling. RER PRESTRESSED CONCRETE documented in this encounter Plan of Treatment Upcoming Encounters Date Type Department Care Team (Late st Contact Info) Description 09/08/2024 10:10 AM LABORER PRESTRESSED CONCRETE Office Visit [facility] Family Medicine - [place] [address] [place] [phone] Samantha Sanders MD [address] [place], [place] [phone] documented as of this encounter Visit Diagnoses Not on filedocumented in this encounter Additional Health Concerns Assessment Noted Time PHQ-9 Depression Total Score: 2 05/23/20 21 8:38 AM CDT documented as of this encounter Care Teams Insert Operator Relationship Specialty Start Date End Date Faith Galvez, EXPLOSIVES OPERATOR PCP - General NURSE PRACTITIONER 05/23/21 04/20/22 documented as of this encounter
--- OUTSIDE RECORDS SUMMARY | 2024-07-24 00:47 | XMS_ITS | Encounter Summary ---
Author Organization [facility] Address [address] [place] [address]. [place], [place] [id number] [place], [place] [phone] Care Team Providers Care Roll Mill Operator Name Role Phone Faith Galvez UNIVERSITY EXTENSION SPECIALIST Primary Care Provider Unavailabl e Reason for Visit * Reason Onset Date Comments Medication 07/25/2021 Encounter Details Date Type Department Care Team (Late st Contact Info) Description 07/25/2021 Telephone [facility] Family & Internal Medicine [address] [phone] Faith Galvez, UNIVERSITY EXTENSION SPECIALIST Medication Social History Tobacco Use Types Packs/Day Years Used Date Smoking Tobacco: Every Day Cigarettes 0.3 20 Smokeless Tobacco: Never Comments:provider to psychotherapist counselor Alcohol Use Standard Drinks/Week Comments Yes [...] COVID-19? No / Unsure 07/09/2021 2:09 PM SEED CUTTER documented as of this encounter Progress Notes * Radha Ortiz RN - 07/30/2021 9:32 AM CST Koko message sent to pt making her aware CUTTER * Radha Ortiz RN - 07/29/2021 8:58 AM CST Attempted to contact pt to make her aware- unable to leave vm CUTTER * Faith Galvez NP - 07/26/2021 4:55 PM CST We can adjust once the month is up. CUTTER * Radha Oritz RN - 07/26/2021 3:22 PM CST PT stated that Phentermine is not helping with weight loss and she has gained another few pounds. She would like to stop this and just go back to taking Vyvanse. Stated we already got the PA on this before, she knows it works and she wont have a copay for this. CUTTER * Rosemary Raymond - 07/26/2021 2:50 PM CST Patient called back. Please call her back at [phone]. CUTTER * Mecca Perry - 07/26/2021 12:45 PM CST Pt returned your call please call her back Thank you CB#[phone] CUTTER * Radha Ortiz RN - 07/26/2021 11:48 AM CST Attempted to contact pt to discuss- lmtcb CUTTER * Faith Galvez NP - 07/25/2021 2:30 PM CST She is currently on phentermine foe weight loss which is controlled. We can try Strattera for add which is not if she would like. CUTTER * Radha Ortiz RN - 07/25/2021 2:27 PM CST Please advise CUTTER * Shae Moore - 07/25/2021 2:17 PM CST Karlie called regarding medications she is on now and previous. Symptoms of ADHD again and then went on weight loss medication. Having to call off work not being able to concentrate, feeling out of it again. [phone] CB # CUTTER documented in this encounter Plan of Treatment Upcoming Encounters Date Type Department Care Team (Late st Contact Info) Description 09/08/2024 10:10 AM SEED CUTTER Office Visit [facility] Family Medicine - [place] [address] [place] [address] Samantha Sanders MD [address] [place] [address] documented as of this encounter Visit Diagnoses Not on filedocumented in this encounter Additional Health Concerns Assessment Noted Time PHQ-9 Depression Total Score: 2 05/23/20 21 8:38 AM CDT documented as of this encounter Care Teams Roll Mill Operator Relationship Specialty Start Date End Date Faith Galvez NP PCP - General NURSE PRACTITIONER 05/23/21 04/20/22 documented as of this encounter
--- OUTSIDE RECORDS SUMMARY | 2024-07-24 00:47 | XMS_ITS | Encounter Summary ---
Author Organization [facility] Address [address] [place] [address]. [place], [place] [phone] [place] [address] Care Team Providers Care Site Leader Name Role Phone Faith Galvez MASTER PRINTER Primary Care Provider Unavailabl e Encounter Details Date Type Department Care Team (Latest Contact Info) Description 01/06/2022 Travel Social History Tobacco Use Types Packs/Day [...] suspected to have Coronavirus/COVID-19? No / Unsure 01/06/2022 9:36 AM CDT documented as of this encounter Plan of Treatment Upcoming Encounters Date Type Department Care Team (Late st Contact Info) Description 09/08/2024 10:10 AM DYE OPERATOR Office Visit [facility] Family Medicine - [place] [address] [place] [phone] Samantha Sanders MD [address] [place] [address] documented as of this encounter Visit Diagnoses Not on filedocumented in this encounter Additional Health Concerns Assessment Noted Time PHQ-9 Depression Total Score: 5 09/05/19 22 10:09 AM DYE OPERATOR documented as of this encounter Care Teams Site Leader Relationship Specialty Start Date End Date Faith Galvez, MASTER PRINTER PCP - General NURSE PRACTITIONER 05/23/21 04/20/22 documented as of this encounter
--- OUTSIDE RECORDS SUMMARY | 2024-07-24 00:47 | XMS_ITS | Encounter Summary ---
Author Organization [facility] Address [address] [place] [address]. [place], [place] [id number] [place], [place] [id number] Care Team Providers Care Assistant To The Ceo Name Role Phone Faith Galvez SADDLE AND SIDE WIRE STITCHER Primary Care Provider Unavailabl e Reason for Visit * Reason Onset Date Comments Medication Request 12/06/2021 Encounter Details Date Type Department Care Team (Late st Contact Info) Description 12/06/2021 Telephone [facility] Family & Internal Medicine [address] [address] Faith Galvez, SADDLE AND SIDE WIRE STITCHER Medication Request Social History Tobacco Use Types [...] suspected to have Coronavirus/COVID-19? No / Unsure 12/06/2021 7:09 AM CDT documented as of this encounter Progress Notes * Radha Ortiz RN - 12/06/2021 1:[address] Philip, Ambien is not appropriate at this time while on a stimulant. Pt made aware and v/u. No further questions. * Radha Ortiz RN - 12/06/2021 12:22 PM CDT Printed to discuss with Dr. Philip * Rosemary Raymond - 12/06/2021 11:22 AM CDT Patient was seen by Dr. Philip today, and she forgot to talk to Dr. Philip about being put backon Ambien, she was on this a number of years ago. She is now living alone and has some anxiety while sleeping. Please call to [facility] documented in this encounter Plan of Treatment Upcoming Encounters Date Type Department Care Team (Late st Contact Info) Description 09/08/2024 10:10 AM CRANE HOOKER Office Visit [facility] Family Medicine - [place] [address] [facility] [address] [place] [id number] Samantha Sanders MD [address] [place] [address] documented as of this encounter Visit Diagnoses Not on filedocumented in this encounter Additional Health Concerns Assessment Noted Time PHQ-9 Depression Total Score: 5 09/05/19 10:09 AM CRANE HOOKER documented as of this encounter Care Teams Assistant To The Ceo Relationship Specialty Start Date End Date Faith Galvez, DORINA PCP - General NURSE PRACTITIONER 05/23/21 04/20/22 documented as of this encounter
--- OUTSIDE RECORDS SUMMARY | 2024-07-24 00:47 | XMS_ITS | Encounter Summary ---
Author Organization [facility] Address [address] [place] [address]. [place], [place] [address] [place] [address] Care Team Providers Care Architectural Associate Name Role Phone Faith Galvez NP Primary Care Provider Charley Solorzano MD Primary Care Provider [phone] Samantha Sanders MD Primary Care Provider + Encounter Details Date Type Department Care Team (Late st Contact Info) Description 07/30/2021 FIZZA Message Enc [facility] Family & Internal Medicine [address] [address] [facility] Medication Social History Tobacco Use Types Packs/Day Years Used Date Smoking Tobacco: Every Day Cigarettes 0.3 20 Smokeless Tobacco: Never Comments:provider to drug and alcohol counsellor Alcohol Use Standard Drinks/Week Comments Yes 0 [...] COVID-19? No / Unsure 07/09/2021 2:09 PM PERCOLATOR OPERATOR documented as of this encounter Plan of Treatment Upcoming Encounters Date Type Department Care Team (Late st Contact Info) Description 09/08/2024 10:10 AM PERCOLATOR OPERATOR Office Visit [facility] Family Medicine - [place] [address] [place] [address] Samantha Sanders MD [address] [place] [address] documented as of this encounter Visit Diagnoses Not on filedocumented in this encounter Additional Health Concerns Infection Onset Date Last Indicated Resolved Time COVID-19 Rule Out 05/25/2023 05/25/2023 05/25/2023 10:11 AM PERCOLATOR OPERATOR COVID-19 Confirmed 05/25/2023 05/25/2023 12:32 AM PERCOLATOR OPERATOR Assessment Noted Time PHQ-9 Depression Total Score: 2 05/23/20 8:38 AM CDT documented as of this encounter Care Teams Architectural Associate Relationship Specialty Start Date End Date Faith Galvez NP PCP - General NURSE PRACTITIONER 05/23/21 04/20/22 [place] [address] [facility] [address] [place] [address] PCP - General FAMILY PRACTICE 04/21/22 03/03/24 Samantha Sanders MD [address] [place] [address] PCP - General FAMILY PRACTICE 03/07/24 documented as of this encounter
--- OUTSIDE RECORDS SUMMARY | 2024-07-24 00:47 | XMS_ITS | Encounter Summary ---
Author Organization [facility] Address [address] [place] [address]. [place], [place] [address] [place] [address] Care Team Providers Care Supervisor Of Way Name Role Phone Faith Galvez JOINTER SUBMARINE CABLE Primary Care Provider Unavailabl e Encounter Details Date Type Department Care Team (Latest Contact Info) Description 09/05/2021 12:52 PM MEASUREMENT ADVISOR - 09/05/2021 11:59 PM MEASUREMENT ADVISOR Hospital Encounter [facility] [address] [place] [id number] Faith Galvez, DORINA Discharge Disposition: Home or Self Care (Routine Discharge) Social History Tobacco Use Types Packs/Day Years Used Date Smoking Tobacco: Every Day Cigarettes 0.3 20 Smokeless Tobacco: Never Comments:provider to student support counselor Alcohol Use Standard Drinks/Week Comments Yes [...] suspected to have Coronavirus/COVID-19? No / Unsure 09/05/2021 9:59 AM MEASUREMENT ADVISOR documented as of this encounter Medications at Time of Discharge Multiple Vitamin (MULTIVITAMIN ADULT OR) Take by mouth daily. amoxicillin 500 MG capsuleIndications:N on-recurrent acute allergic otitis media of left ear Take 1 capsule (500 mg total) by mouth 3 (three) times daily for 10 days. 30 capsule 09/05/2021 2 azelastine 0.1 % nasal sprayIndications:All ergies 1 spray in each nostril daily 30 mL 04/04/2021 2 buPROPion 75 MG tabletIndications:De pression with anxiety Take 0.5 tablets (37.5 mg total) by mouth daily. 15 tablet 3 06/06/2021 2 lisdexamfetamine (VYVANSE) 40 MG capsuleIndications:A ttention deficit hyperactivity disorder (ADHD), combined type Take 1 capsule (40 mg total) by mouth every morning. 30 capsule 09/05/2021 2 pravastatin 20 MG tabletIndications:Mi xed hyperlipidemia Take 1 tablet (20 mg total) by mouth nightly at bedtime. 30 tablet 3 09/05/2021 2 SPIRONOLACTONE 50 MG tabletIndications:Ac ne TAKE 1 TABLET(50 MG) BY MOUTH DAILY 30 tablet 07/31/2021 2 Vitamin D, Cholecalciferol, 25 MCG (1000 UT) Cap Take by mouth daily. 2 documented as of this encounter Plan of Treatment Upcoming Encounters Date Type Department Care Team (Late st Contact Info) Description 09/08/2024 10:10 AM MEASUREMENT ADVISOR Office Visit [facility] Family Medicine - [place] [address] [place] [phone] Samantha Sanders MD [address] [place] [address] documented as of this encounter Procedures Procedure Name Priority Date/Time Associated Diagnosis Comments THYROID PEROXIDASE ANTIBODY Routine 09/05/2021 1:00 PM MEASUREMENT ADVISOR Goiter FREE T3 Routine 09/05/2021 1:00 PM MEASUREMENT ADVISOR Goiter HC TESTOSTERONE FREE-90 Routine 09/05/2021 1:00 PM MEASUREMENT ADVISOR Goiter COMPREHENSIVE METABOLIC PANEL Routine 09/05/2021 1:00 PM MEASUREMENT ADVISOR Class 1 obesity due to excess calories without serious comorbidity with body mass index (BMI) of 30.0 to 30.9 in adult LIPID PANEL Routine 09/05/2021 1:00 PM MEASUREMENT ADVISOR Class 1 obesity due to excess calories without serious comorbidity with body mass index (BMI) of 30.0 to 30.9 in adult ESTRADIOL Routine 09/05/2021 1:00 PM MEASUREMENT ADVISOR Goiter CBC W/DIFF AUTOMATED Routine 09/05/2021 1:00 PM MEASUREMENT ADVISOR Class 1 obesity due to excess calories without serious comorbidity with body mass index (BMI) of 30.0 to 30.9 in adult THYROXINE, FREE (FT4) Routine 09/05/2021 1:00 PM MEASUREMENT ADVISOR Goiter THYROID STIM HORMONE TSH Routine 09/05/2021 1:00 PM MEASUREMENT ADVISOR Goiter CORTISOL AM Routine 09/05/2021 11:20 AM MEASUREMENT ADVISOR Goiter VITAMIN D, 25 OH Routine 09/05/2021 11:2 0 AM MEASUREMENT ADVISOR Vitamin D deficiency documented in this encounter Results * THYROID STIM HORMONE, TSH (09/05/2021 1:00 PM MEASUREMENT ADVISOR) TSH 1.161 0.358 - 3.74 uIU/ML 09/05/2021 1:42 PM MEASUREMENT ADVISOR [facility] ([facility] Comment: HIGH DOSES OF BIOTIN MAY INTERFERE WITH THIS TEST RESULT. CORRELATION TO CLINICAL HISTORY AND PRESENTATION RECOMMENDED. 09/05/2021 1:00 PM MEASUREMENT ADVISOR us Faith Galvez NP LABORATORY Final Result [facility] [address] [place] [address], [place] [phone] * THYROXINE, FREE (FT4) (09/05/2021 1:00 PM MEASUREMENT ADVISOR) FREE T4 0.79 0.76 - 1.46 NG/DL 09/05/2021 1:42 PM MEASUREMENT ADVISOR [facility] 09/05/2021 1:00 PM MEASUREMENT ADVISOR us Faith Galvez NP LABORATORY Final Result Performing Organization Address City/[facility]/ZIP Co de Phone Number [facility] [address] [place] [address], [place] [phone] * FREE T3 (09/05/2021 1:00 PM MEASUREMENT ADVISOR) Pathologist [facility] FREE T3 3.2 2.18 - 3.98 PG/ML 09/06/2021 11:[address] [facility] 09/05/2021 1:00 PM MEASUREMENT ADVISOR us Faith Galvez NP LABORATORY Final Result [facility] [address] [place] [address], [place] [phone] * THYROID PEROXIDASE ANTIBODY (09/05/2021 1:00 PM MEASUREMENT ADVISOR) ANTITHY PEROXID AB <1 <9 IU/mL 09/08/2021 3:45 AM MEASUREMENT ADVISOR [facility] JANAE SALDIVAR Comment: Test Performed by Althea Mcgowan, [facility] Ul[facility] Richards, [address] [place] [address] Devon Jeter M.D., Ph.D., Director of Laboratories , [place] [id number] 09/05/2021 1:00 PM MEASUREMENT ADVISOR us Faith Galvez NP LABORATORY Final Result Performing Organization Address City/[facility]/ZIP Co de Phone Number [facility] [address] [place], [place] , [place] [phone] * TESTOSTERONE, FREE & TOTAL (09/05/2021 1:00 PM MEASUREMENT ADVISOR) TESTOSTERONE TOTAL 14 2 - 45 ng/dL 09/12/2021 11:36 AM MEASUREMENT ADVISOR [facility] Comment: For additional information, please refer to http://education.Better Bean/faq/ TahcnCdqssyzsehdhNFXOPWOUT478 (This link is being provided for informational/ educational purposes only.) This test was developed and its analytical performance characteristics have been determined by [employer] [place], [place]. It has not been cleared or approved by the U.S. Food and Drug Administration. This assay has been validated pursuant to the CLIA regulations and is used for clinical purposes. TESTOSTERONE FREE 1.6 0.1 - 6.4 pg/mL 09/12/2021 11:36 AM MEASUREMENT ADVISOR [facility] Comment: This test was developed and its analytical performance characteristics have been determined by [employer] [place], [place]. It has not been cleared or approved by the U.S. Food and Drug Administration. This assay has been validated pursuant to the CLIA regulations and is used for clinical purposes. Test Performed by [facility], [place], [address] [place], [place] Devon Jeter M.D., Ph.D., Director of Laboratories , CLIA [id number] 09/05/2021 1:00 PM MEASUREMENT ADVISOR us Faith Galvez NP LABORATORY Final Result Performing Organization Address City/[facility]/ZIP Co de Phone Number [facility] [address] [place], [place] , [place] [phone] * ESTRADIOL (09/05/2021 1:00 PM MEASUREMENT ADVISOR) ESTRADIOL (E2) 27 see note pg/mL 09/08/2021 8:37 AM MEASUREMENT ADVISOR [facility] JANAE SALDIVAR Comment: Unable to flag abnormal result(s), please refer ?? to reference range(s) below: Females: Follicular Phase: 19 - 144 pg/mL Mid-Cycle: ?64 - 357 pg/mL Luteal Phase: ? 56 - 214 pg/mL Post-Menopausal: ? <= 31 pg/mL Reference range established on post-pubertal patient population. No pre-pubertal reference range established using this assay. For any patients for whom low Estradiol levels are anticipated (e.g. males, pre-pubertal children, and hypogonadal/post-menopausal females), the BetterLesson Estradiol, Ultrasensitive, LCMSMS assay is recommended (order code 72687). Please note: Patients being treated with the drug fulvestrant [Faslodex(R)] have demonstrated significant interference in immunoassay methods for estradiol measurement. The cross reactivity could lead to falsely elevated estradiol test results leading to an inappropriate clinical assessment of estrogen status. [employer] order code [id number], Ultrasensitive LC/MS/MS demonstrates negligible cross reactivity with fulvestrant. Test Performed by Althea Mcgowan, [facility], [address] [place] [address] Devon Jeter M.D., Ph.D., Director of Laboratories , [facility] [id number] 09/05/2021 1:00 PM MEASUREMENT ADVISOR Faith Galvez NP LABORATORY Final Result [facility] [address] [place] [address] , * (ABNORMAL) LIPID PANEL (09/05/2021 1:00 PM MEASUREMENT ADVISOR) Pathologist [facility] CHOLESTEROL 280(H) <200.0 MG/DL 09/05/2021 1:42 PM [facility] TRIGLYCERIDES 206(H) <150 MG/DL 09/05/2021 1:42 PM [facility] HDL 43 >40.0 MG/DL 09/05/2021 1:42 PM [facility] LDL (CALCULATED) 196(H) <100 MG/DL 09/05/2021 1:42 PM [facility] NON HDL CHOLESTEROL 237(H) <130 MG/DL 09/05/2021 1:42 PM [facility] CHOL/HDL RATIO 6.5(H) 0.0 - 4.5 09/05/2021 1:42 PM [facility] VLDL CALCULATION 41 5 - 55 MG/DL 09/05/2021 1:42 PM [facility] LIPID INTERPRETATION 09/05/2021 1:42 PM [facility] Comment: [facility] REPORT RECOMMENDATIONS: ?ADULT ?CHILD ??LOW RISK: ?CHOLESTEROL ? <200 ? <170 ?TRIGLYCERIDE ?<150 ?--- ?HDL ? >=60 ?--- ?LDL ? <100 ? <110 ??BORDERLINE: ?CHOLESTEROL ? 200-239 ?? 170-199 ?TRIGLYCERIDE ?150-199 ? --- ?HDL ?40-59 ?--- ?LDL ? 100-159 ?? 110-129 ??HIGH RISK: ?CHOLESTEROL ? >=240 ?>=200 ?TRIGLYCERIDE ?>=200 ? --- ?HDL ?<40 ?--- ?LDL ? >=160 ?>=130 09/05/2021 1:00 PM MEASUREMENT ADVISOR Faith Galvez NP LABORATORY Final Result [facility] [address] [place] [address], * (ABNORMAL) COMPREHENSIVE METABOLIC PANEL (09/05/2021 1:00 PM MEASUREMENT ADVISOR) GLUCOSE 100(H) 70 - 99 MG/DL 09/05/2021 1:42 PM [facility] BUN 14 7 - 18 MG/DL 09/05/2021 1:42 PM [facility] CREATININE S/P/B 0.75 0.55 - 1.02 MG/DL 09/05/2021 1:42 PM [facility] SODIUM S/P/B 139 136 - 145 MMOL/L 09/05/2021 1:42 PM [facility] POTASSIUM S/P/B 4.2 3.5 - 5.1 MMOL/L 09/05/2021 1:42 PM [facility] CHLORIDE S/P/B 104 100 - 108 MMOL/L 09/05/2021 1:42 PM [facility] CO2 27.9 21 - 32 MMOL/L 09/05/2021 1:42 PM [facility] CALCIUM S/P/B 8.9 8.5 - 10.1 MG/DL 09/05/2021 1:42 PM [facility] BILIRUBIN TOTAL S/P/B 0.4 0.2 - 1.2 MG/DL 09/05/2021 1:42 PM [facility] TOTAL PROTEIN S/P/B 7.4 6.4 - 8.2 G/DL 09/05/2021 1:42 PM [facility] ALBUMIN S/P/B 3.9 3.4 - 5.0 G/DL 09/05/2021 1:42 PM [facility] AST 29 15 - 37 U/L 09/05/2021 1:42 PM [facility] ALT 25 14 - 55 U/L 09/05/2021 1:42 PM [facility] ALKALINE PHOSPHATASE S/P/B 99 50 - 136 U/L 09/05/2021 1:42 PM [facility] ANION GAP 7.1 5 - 15 MMOL/L 09/05/2021 1:42 PM [facility] BUN CREATININE RATIO 18.7 6 - 26 09/05/2021 1:42 PM [facility] A/G RATIO 1.1 1.0 - 2.0 RATIO 09/05/2021 1:42 PM [facility] EGFR NON-AFR. AMER. >90 >90 ML/MIN/1.7 3 M2 09/05/2021 1:42 PM [facility] EGFR AFR. AMER. >90 >90 ML/MIN/1.7 3 M2 09/05/2021 1:42 PM [facility] Comment: NOTE: eGFR is not calculated for patients <18 years of age. This is an estimated GFR (CKD EPI) and should not be used for calculating drug doses. 09/05/2021 1:00 PM MEASUREMENT ADVISOR Faith Galvez NP LABORATORY Final Result [facility] [address] [place] [address], * (ABNORMAL) CBC W/DIFF AUTOMATED (09/05/2021 1:00 PM MEASUREMENT ADVISOR) WBC 8.1 4.4 - 11.0 x10'3/uL 09/05/2021 1:12 PM [facility] RBC 4.84 4.50 - 5.10 x10'6/uL 09/05/2021 1:12 PM [facility] HGB 15.1 12.3 - 15.3 G/DL 09/05/2021 1:12 PM [facility] HCT 46.6(H) 35.9 - 44.6 % 09/05/2021 1:12 PM [facility] MCV 96.3(H) 80.0 - 96.0 FL 09/05/2021 1:12 PM [facility] MCH 31.2(H) 25.3 - 30.9 PG 09/05/2021 1:12 PM [facility] MCHC 32.4 31.0 - 34.1 G/DL 09/05/2021 1:12 PM [facility] RDW 13.0 12.4 - 15.1 % 09/05/2021 1:12 PM [facility] PLT 443(H) 151 - 353 x10'3/uL 09/05/2021 1:12 PM MEASUREMENT ADVISOR [facility] MPV 9.6 9.6 - 12.0 FL 09/05/2021 1:12 PM [facility] RBC MORPHOLOGY NORMAL 09/05/2021 1:12 PM [facility] PLT MORPH. NORMAL 09/05/2021 1:12 PM [facility] WBC MORPHOLOGY NORMAL 09/05/2021 1:12 PM [facility] LYMPHOCYTES % 28.4 15.8 - 45.0 % 09/05/2021 1:12 PM [facility] NEUTROPHILS % 64.2 42.1 - 71.9 % 09/05/2021 1:12 PM [facility] MONOCYTES % 5.7 5.7 - 12.5 % 09/05/2021 1:12 PM [facility] EOSINOPHILS 0.4 0.0 - 5.6 % 09/05/2021 1:12 PM [facility] BASOPHILS 0.7 0.0 - 1.3 % 09/05/2021 1:12 PM [facility] ABS. NEUTROPHILS 5.19 1.40 - 6.00 x10'3/uL 09/05/2021 1:12 PM [facility] IMMATURE GRANS % 0.6(H) 0.0 - 0.5 % 09/05/2021 1:12 PM [facility] ABS. LYMPHOCYTES 2.30 0.80 - 4.70 x10'3/uL 09/05/2021 1:12 PM [facility] 09/05/2021 1:00 PM MEASUREMENT ADVISOR us Faith Galvez NP LABORATORY Final Result [facility] [address] [place] [address], [place] [phone] * CORTISOL AM (09/05/2021 11:20 AM MEASUREMENT ADVISOR) CORTISOL 8AM 6.8 4.0 - 20.0 mcg/dL 09/05/2021 7:55 PM MEASUREMENT ADVISOR [facility] 09/05/2021 11:2 0 AM MEASUREMENT ADVISOR Faith Galvez NP LABORATORY Final Result Performing Organization Address [facility] de Phone Number [facility] [address] [place] [address], [place] [phone] * VITAMIN D, 25 OH (09/05/2021 11:20 AM MEASUREMENT ADVISOR) VITAMIN D 25 HYDROXY S/P/B 46 30 - 100 NG/ML 09/05/2021 1:49 PM MEASUREMENT ADVISOR [facility] Comment: ? INTERPRETATION ? DEFICIENT ??<20 ? INSUFFICIENT 20-29 ?SUFFICIENT 30-100 09/05/2021 11:2 0 AM MEASUREMENT ADVISOR us Faith Galvez NP LABORATORY Final Result Performing Organization Address City/[facility] Co de Phone Number [facility] [address] [place] [address], [place] [phone] documented in this encounter Visit Diagnoses Diagnosis Vitamin D deficiency Unspecified vitamin D deficiency Class 1 obesity due to excess calories without serious comorbidity with body mass index (BMI) of 30.0 to 30.9 in adult Goiter Goiter, unspecified documented in this encounter Additional Health Concerns Assessment Noted Time PHQ-9 Depression Total Score: 5 09/05/19 22 10:09 AM MEASUREMENT ADVISOR documented as of this encounter Care Teams Supervisor Of Way Relationship Specialty Start Date End Date Faith Galvez, JOINTER SUBMARINE CABLE PCP - General NURSE PRACTITIONER 05/23/21 04/20/22 documented as of this encounter
--- OUTSIDE RECORDS SUMMARY | 2024-07-24 00:47 | XMS_ITS | Encounter Summary ---
Author Organization [facility] Address [address] [place] [address]. [place], [place] [address] [place] [address] Care Team Providers Care [employer] Senior Officer Name Role Phone Faith Galvez ENFORCEMENT MANAGER Primary Care Provider Unavailabl e Encounter Details Date Type Department Care Team (Latest Contact Info) Description 08/07/2021 Travel Social History Tobacco Use Types Packs/Day Years Used Date Smoking Tobacco: Every Day Cigarettes 0.3 20 Smokeless Tobacco: Never Comments:provider to senior counsel commercial Alcohol Use Standard Drinks/Week Comments Yes 0 [...] have Coronavirus / COVID-19? No / Unsure 08/07/2021 6:55 AM GAS STATION SUPERVISOR documented as of this encounter Plan of Treatment Upcoming Encounters Date Type Department Care Team ( Contact Info) Description 09/08/2024 10:10 AM GAS STATION SUPERVISOR Office Visit [facility] Family [facility] [address] [facility] [address] [place] [address] Samantha Sanders MD [address] [place] [address] documented as of this encounter Visit Diagnoses Not on filedocumented in this encounter Additional Health Concerns Assessment Noted Time PHQ-9 Depression Total Score: 2 05/23/20 21 8:38 AM CDT documented as of this encounter Care Teams [employer] Senior Officer Relationship Specialty Start Date End Date Faith Galvez, ENFORCEMENT MANAGER PCP - General NURSE PRACTITIONER 05/23/21 04/20/22 documented as of this encounter
--- OUTSIDE RECORDS SUMMARY | 2024-07-24 00:47 | XMS_ITS | Encounter Summary ---
Author Organization [facility] Address [address] [place] [address]. [place], [place] [address] [place] [address] Care Team Providers Care Field Spec Name Role Phone Faith Frye CHIEF CLERK Primary Care Provider Unavailabl e Reason for Visit * Reason Comments Follow Up 1 month f/u, Encounter Details Date Type Department Care Team (Late st Contact Info) Description 09/05/2021 10:00 AM NEPHROLOGY SOCIAL WORKER Office Visit [facility] Family & Internal Medicine [address] [phone] Faith Frye, CHIEF CLERK Follow Up (1 month f/u,) Social History Tobacco Use Types Packs/Day Years Used Date Smoking Tobacco: Every Day Cigarettes 0.3 20 Smokeless Tobacco: Never Tobacco Cessation:Counseling Given: No Comments:provider to prison classification counselor Alcohol Use Standard Drinks/Week Comments Yes [...] Coronavirus/COVID-19? No / Unsure 09/05/2021 9:59 AM NEPHROLOGY SOCIAL WORKER documented as of this encounter Last Filed Vital Signs Vital Sign Reading Time Taken Comments Blood Pressure 112/80 09/05/2021 10:08 AM NEPHROLOGY SOCIAL WORKER Pulse 86 09/05/2021 10:08 AM NEPHROLOGY SOCIAL WORKER Temperature 36.3 ??C (97.3 ??F) 09/05/2021 1 0:08 AM NEPHROLOGY SOCIAL WORKER Respiratory Rate 20 09/05/2021 10:0 8 AM NEPHROLOGY SOCIAL WORKER Oxygen Saturation 99% 09/05/2021 10: 08 AM NEPHROLOGY SOCIAL WORKER Inhaled Oxygen Concentration - - Weight 75.2 kg (165 lb 12.8 oz) 022 10:08 AM NEPHROLOGY SOCIAL WORKER Height 162.6 cm (5' 4 ) 09/05/2021 10:0 8 AM NEPHROLOGY SOCIAL WORKER Body Mass Index 28.46 09/05/2021 10:08 AM NEPHROLOGY SOCIAL WORKER documented in this encounter Patient Instructions * Patient Instructions* Faith Frye NP - 09/05/2021 10:00 AM NEPHROLOGY SOCIAL WORKER Images from the original note were not included. Patient Education Patient Education Serous Otitis Media Discharge Instructions About this topic The Eustachian tube allows fluid to drain from the middle ear. Sometimes, fluid cannot drain from the tube. This may cause an acute or chronic problem known as serous otitis media. An acute problem is one that does not last for a long time. Acute serous otitis media is often caused by an infection or allergy. A chronic problem is one that lasts for a long time. Chronic serous otitis media may happ en when the tube stays blocked because the fluid is too thick to drain from the tube. This problem may go away on its own without treatment. What care is needed at home? ?? Ask your doctor what you need to do when you go home. Make sure you ask questions if you do not understand what the doctor says. This way you will know what you need to do. ?? If the doctor orders antibiotics, be sure to take all of them, even if you start to feel better. ?? Do not put anything in your ear unless it was ordered by the doctor. ?? You may want to take medicines like ibuprofen, naproxen, or acetaminophen to help with pain. What follow-up care is needed? ?? Your doctor may ask you to make visits to the office to check on your progress. Be sure to keep these visits. ?? Have ear and hearing tests done regularly as ordered by your doctor. What drugs may be needed? Your doctor may order drugs based on what problems you are having. The doctor may order drugs to: ?? Help with pain and swelling ?? Fight an infection ?? Treat an allergy Will physical activity be limited? Talk with your doctor about the right amount of activity for you. What problems could happen? ?? Infection could come back ?? Loss of hearing ?? Problems with speech ?? Scarring on the eardrum What can be done to prevent this health problem? ?? If you smoke, quit. Do not go near people who smoke. ?? Stay away from people who have colds. ?? If you have allergies, treat them, and try to avoid your triggers. ?? Wash your hands often. ?? If over 12 months of age, stop daytime use of a pacifier. When do I need to call the doctor? ?? Your symptoms are not getting better in 2 to 3 days. ?? You continue to have problems hearing after 2 to 3 weeks. ?? You have a fever of 100.4??F (38??C) or higher or chills. ?? You have discharge or fluid coming from your ear. Teach Back: Helping You Understand The Teach [...] condition. ?? I can tell you what may help ease my pain. ?? I can tell you what I will do if I have a fever, ear pain, or redness and pain behind my ear. Where can I learn more? [employer] https://familydoctor.org/condition/ear-infection/ [employer] https://familydoctor.org/condition/jfqraeqyto-zixu-nbnrzwrxoav/ [employer] https://familydoctor.org/condition/tiekdj-fjdux-rgoe-effusion/ Last Reviewed Date 2021-01-07 Consumer Information Use and Disclaimer This generalized [...] or approved for treating a specific patient. [employer] and its affiliates disclaim any warranty or liability relating to this information or the use thereof. The use of this information is governed by the Terms of Use, available at https://www.Infochimps/en/solutions/[employer]/about/gerri Copyright Copyright ?? 2020 [employer] and its affiliates and/or licensors. All rights reserved. Get blood work today and will call with results Follow with endocrinology Start vyvance 40 mg daily Follow up in 1 month ROLOGY SOCIAL WORKER ROLOGY SOCIAL WORKER documented in this encounter Progress Notes * Faith Frye NP - 09/05/2021 10:00 AM CST Reason for Visit: Follow Up (1 month f/u,) History of Present Illness: Pt. Here for weight loss follow up. Pt. Taking Phentermine and gained 6 lbs since last visit. Denies any shortness of breath or chest pains. States that she feels like the medication is not helping anymore and would like to be taken off of it. She also wants to talk about the results of her thyroid ultrasound and get lab work requested by her mixing tumbler operator. ROS: Review of Systems Constitutional: Positive for unexpected weight change. Negative for fatigue and fever. HENT: Negative. Eyes: Negative. Respiratory: Negative. Negative for cough and shortness of breath. Cardiovascular: Negative. Negative for chest pain. Gastrointestinal: Negative for abdominal pain. Endocrine: Negative. Genitourinary: Negative. Musculoskeletal: Negative. Negative for back pain. Skin: Negative. Allergic/Immunologic: Negative. Negative for environmental allergies. Neurological: Negative. Hematological: Negative for adenopathy. Psychiatric/Behavioral: Positive for decreased concentration. Negative for suicidal ideas (Denies). Medications: Current Outpatient Medications: ??? amoxicillin 500 MG capsule, Take 1 capsule (500 mg total) by mouth 3 (three) times daily for 10days., Disp: 30 capsule, Rfl: 0 ??? azelastine 0.1 % nasal [...] mouth daily. , Disp: , Rfl: ??? SPIRONOLACTONE 50 MG tablet, TAKE 1 TABLET(50 MG) BY MOUTH DAILY, Disp: 30 tablet, Rfl: 0 ??? Vitamin [...] Never Used ??? Tobacco comment: provider to prison classification counselor Vaping Use ??? Vaping Use: Never [...] is obese. She is not ill-appearing. HENT: Head: Normocephalic. [...] General: Skin is warm and dry. Neurological: Mental Status: She is alert and oriented to person, place, and time. Psychiatric: Mood and Affect: Mood is anxious. Behavior: Behavior normal. Filed Vitals: 09/05/21 1008 BP: 112/80 Pulse: 86 Resp: 20 Temp: 97.3 ??F (36.3 ??C) TempSrc: Temporal SpO2: 99% Weight: 75.2 kg (165 lb 12.8 oz) Height: 5' 4 (1.626 m) Assessment Encounter Diagnose(s) ICD-10-CM ICD-9-CM SNOMED CT(R) 1. Goiter E04.9 240.9 GOITER THYROID STIM HORMONE, TSH THYROXINE, FREE (FT4) FREE T3 THYROID PEROXIDASE ANTIBODY CORTISOL AM TESTOSTERONE, FREE & TOTAL ESTRADIOL VENIPUNC ARM DRAW 2. Class 1 obesity due to excess calories without serious comorbidity with body mass index (BMI) of30.0 to 30.9 in adult E66.09 278.00 OBESITY LIPID PANEL Z68.30 V85.30 COMPREHENSIVE METABOLIC PANEL CBC W/DIFF AUTOMATED VENIPUNC ARM DRAW 3. Vitamin D deficiency E55.9 268.9 VITAMIN D DEFICIENCY VITAMIN D, 25 OH VENIPUNC ARM DRAW 4. Non-recurrent acute allergic otitis media of left ear H65.112 381.04 ALLERGIC OTITIS MEDIA amoxicillin 500 MG capsule VENIPUNC ARM DRAW 5. Attention deficit hyperactivity disorder (ADHD), combined type F90.2 314.01 ATTENTION DEFICIT HYPERACTIVITY DISORDER, COMBINED TYPE lisdexamfetamine (VYVANSE) 40 MG capsule VENIPUNC ARM DRAW Recommendations and Plan: Get blood work today and will call with results Follow with endocrinology Start vyvance 40 mg daily Follow up in 1 month 1. Goiter Follow with endocrinology - THYROID STIM HORMONE, TSH; Future - THYROXINE, FREE (FT4); Future - FREE T3; Future - THYROID PEROXIDASE ANTIBODY; Future - CORTISOL AM; Future - TESTOSTERONE, FREE & TOTAL; Future - ESTRADIOL; Future - VENIPUNC ARM DRAW 2. Class 1 obesity due to excess calories without serious comorbidity with body mass index (BMI) of30.0 to 30.9 in adult Obesity: Pt has elevated weight with BMI Body mass index is 28.46 kg/m??., and will need to work hard on reducing carbohydrates and total calories. They may use the free smart phone apps such as NetClarity to help track calories and try to [...] future but these do come with risks. - LIPID PANEL; Future - COMPREHENSIVE METABOLIC PANEL; Future - CBC W/DIFF AUTOMATED; Future - VENIPUNC ARM DRAW 3. Vitamin D deficiency - VITAMIN D, 25 OH; Future - VENIPUNC ARM DRAW 4. Non-recurrent acute allergic otitis media of left ear As below - amoxicillin 500 MG capsule; Take 1 capsule (500 mg total) by mouth 3 (three) times daily for 10 days. Dispense: 30 capsule; Refill: 0 - VENIPUNC ARM DRAW 5. Attention deficit hyperactivity disorder (ADHD), combined type As below Follow up in 1 month - lisdexamfetamine (VYVANSE) 40 MG capsule; Take 1 capsule (40 mg total) by mouth every morning. Dispense: 30 capsule; Refill: 0 - VENIPUNC ARM DRAW FAITH FRYE NP 09/05/2021 11:22 AM ROLOGY SOCIAL WORKER documented in this encounter Plan of Treatment Upcoming Encounters Date Type Department Care Team (Late st Contact Info) Description 09/08/2024 10:10 AM NEPHROLOGY SOCIAL WORKER Office Visit [facility] Family Medicine - [place] [address] [facility] [address] [place] [address] Samantha Sanders MD [address] [place] [id number] documented as of this encounter Procedures Procedure Name Priority Date/Time Associated Diagnosis Comments COLLECTION VENOUS BLOOD VENIPUNCTURE Routine 09/05/2021 11:21 AM NEPHROLOGY SOCIAL WORKER Goiter Class 1 obesity due to excess calories without serious comorbidity with body mass index (BMI) of 30.0 to 30.9 in adult Vitamin D deficiency Non-recurrent acute allergic otitis media of left ear Attention deficit hyperactivity disorder (ADHD), combined type documented in this encounter Results * (ABNORMAL) CBC W/DIFF AUTOMATED (09/05/2021 1:00 PM NEPHROLOGY SOCIAL WORKER) WBC 8.1 4.4 - 11.0 x10'3/uL 09/05/2021 1:12 PM [facility] RBC 4.84 4.50 - 5.10 x10'6/uL 09/05/2021 1:12 PM [facility] HGB 15.1 12.3 - 15.3 G/DL 09/05/2021 1:12 PM [facility] HCT 46.6(H) 35.9 - 44.6 % 09/05/2021 1:12 PM [facility] MCV 96.3(H) 80.0 - 96.0 FL 09/05/2021 1:12 PM [facility] MCH 31.2(H) 25.3 - 30.9 PG 09/05/2021 1:12 PM [facility] MCHC 32.4 31.0 - 34.1 G/DL 09/05/2021 1:12 PM [facility] RDW 13.0 12.4 - 15.1 % 09/05/2021 1:12 PM [facility] PLT 443(H) 151 - 353 x10'3/uL 09/05/2021 1:12 PM NEPHROLOGY SOCIAL WORKER [facility] MPV 9.6 9.6 - 12.0 FL 09/05/2021 1:12 PM [facility] RBC MORPHOLOGY NORMAL 09/05/2021 1:12 PM [facility] PLT MORPH. NORMAL 09/05/2021 1:12 PM [facility] WBC MORPHOLOGY NORMAL 09/05/2021 1:12 PM [facility] LYMPHOCYTES % 28.4 15.8 - 45.0 % 09/05/2021 1:12 PM [facility] NEUTROPHILS % 64.2 42.1 - 71.9 % 09/05/2021 1:12 PM [facility] MONOCYTES % 5.7 5.7 - 12.5 % 09/05/2021 1:12 PM [facility] EOSINOPHILS 0.4 0.0 - 5.6 % 09/05/2021 1:12 PM [facility] BASOPHILS 0.7 0.0 - 1.3 % 09/05/2021 1:12 PM [facility] ABS. NEUTROPHILS 5.19 1.40 - 6.00 x10'3/uL 09/05/2021 1:12 PM [facility] IMMATURE GRANS % 0.6(H) 0.0 - 0.5 % 09/05/2021 1:12 PM [facility] ABS. LYMPHOCYTES 2.30 0.80 - 4.70 x10'3/uL 09/05/2021 1:12 PM [facility] 09/05/2021 1:00 PM NEPHROLOGY SOCIAL WORKER us Faith Frye NP LABORATORY Final Result [facility] [address] [place] [address], * (ABNORMAL) COMPREHENSIVE METABOLIC PANEL (09/05/2021 1:00 PM NEPHROLOGY SOCIAL WORKER) [facility] GLUCOSE 100(H) 70 - 99 MG/DL 09/05/2021 1:42 PM [facility] BUN 14 7 - 18 MG/DL 09/05/2021 1:42 PM [facility] CREATININE S/P/B 0.75 0.55 - 1.02 MG/DL 09/05/2021 1:42 PM [facility] SODIUM S/P/B 139 136 - 145 MMOL/L 09/05/2021 1:42 PM [facility] POTASSIUM S/P/B 4.2 3.5 - 5.1 MMOL/L 09/05/2021 1:42 PM [facility] CHLORIDE S/P/B 104 100 - 108 MMOL/L 09/05/2021 1:42 PM [facility] CO2 27.9 21 - 32 MMOL/L 09/05/2021 1:42 PM [facility] CALCIUM S/P/B 8.9 8.5 - 10.1 MG/DL 09/05/2021 1:42 PM [facility] BILIRUBIN TOTAL S/P/B 0.4 0.2 - 1.2 MG/DL 09/05/2021 1:42 PM [facility] TOTAL PROTEIN S/P/B 7.4 6.4 - 8.2 G/DL 09/05/2021 1:42 PM [facility] ALBUMIN S/P/B 3.9 3.4 - 5.0 G/DL 09/05/2021 1:42 PM [facility] AST 29 15 - 37 U/L 09/05/2021 1:42 PM [facility] ALT 25 14 - 55 U/L 09/05/2021 1:42 PM [facility] ALKALINE PHOSPHATASE S/P/B 99 50 - 136 U/L 09/05/2021 1:42 PM [facility] ANION GAP 7.1 5 - 15 MMOL/L 09/05/2021 1:42 PM [facility] BUN CREATININE RATIO 18.7 6 - 26 09/05/2021 1:42 PM [facility] A/G RATIO 1.1 1.0 - 2.0 RATIO 09/05/2021 1:42 PM [facility] EGFR NON-AFR. AMER. >90 >90 ML/MIN/1.7 3 M2 09/05/2021 1:42 PM [facility] EGFR AFR. AMER. >90 >90 ML/MIN/1.7 3 M2 09/05/2021 1:42 PM [facility] Comment: NOTE: eGFR is not calculated for patients <18 years of age. This is an estimated GFR (CKD EPI) and should not be used for calculating drug doses. 09/05/2021 1:00 PM NEPHROLOGY SOCIAL WORKER us Faith Frye NP LABORATORY Final Result [facility] [address] [place] [address], * (ABNORMAL) LIPID PANEL (09/05/2021 1:00 PM NEPHROLOGY SOCIAL WORKER) CHOLESTEROL 280(H) <200.0 MG/DL 09/05/2021 1:42 PM [facility] TRIGLYCERIDES 206(H) <150 MG/DL 09/05/2021 1:42 PM [facility] HDL 43 >40.0 MG/DL 09/05/2021 1:42 PM [facility] LDL (CALCULATED) 196(H) <100 MG/DL 09/05/2021 1:42 PM [facility] NON HDL CHOLESTEROL 237(H) <130 MG/DL 09/05/2021 1:42 PM [facility] CHOL/HDL RATIO 6.5(H) 0.0 - 4.5 09/05/2021 1:42 PM [facility] VLDL CALCULATION 41 5 - 55 MG/DL 09/05/2021 1:42 PM [facility] LIPID INTERPRETATION 09/05/2021 1:42 PM [facility] Comment: [facility]CENSUS REPORT RECOMMENDATIONS: ?ADULT ?CHILD ??LOW RISK: ?CHOLESTEROL ? <200 ? <170 ?TRIGLYCERIDE ?<150 ?--- ?HDL ? >=60 ?--- ?LDL ? <100 ? <110 ??BORDERLINE: ?CHOLESTEROL ? 200-239 ?? 170-199 ?TRIGLYCERIDE ?150-199 ? --- ?HDL ?40-59 ?--- ?LDL ? 100-159 ?? 110-129 ??HIGH RISK: ?CHOLESTEROL ? >=240 ?>=200 ?TRIGLYCERIDE ?>=200 ? --- ?HDL ?<40 ?--- ?LDL ? >=160 ?>=130 09/05/2021 1:00 PM NEPHROLOGY SOCIAL WORKER Faith Frye NP LABORATORY Final Result Performing Organization Address City/State/[facility] Co de Phone Number [facility] [address] [place] [address], * ESTRADIOL (09/05/2021 1:00 PM NEPHROLOGY SOCIAL WORKER) Pathologist [facility] ESTRADIOL (E2) 27 see note pg/mL 09/08/2021 8:37 AM NEPHROLOGY SOCIAL WORKER [employer] JANAE SALDIVAR Comment: Unable to flag abnormal [...] males, pre-pubertal children, and hypogonadal/post-menopausal females), the [facility] Estradiol, Ultrasensitive, LCMSMS assay is recommended (order code 13224). Please note: Patients being treated with the drug fulvestrant [Faslodex(R)] have demonstrated significant interference in immunoassay methods for estradiol measurement. The cross reactivity could lead to falsely elevated estradiol test results leading to an inappropriate clinical assessment of estrogen status. [employer] order code 30017-[id number], Ultrasensitive LC/MS/MS demonstrates negligible cross reactivity with fulvestrant. Test Performed by [facility], [address] [place] [address] Devon Jeter M.D., Ph.D., Director of Laboratories , CLIA [id number] 09/05/2021 1:00 PM NEPHROLOGY SOCIAL WORKER us Faith Frye NP LABORATORY Final Result [facility] , [place] [phone] * TESTOSTERONE, FREE & TOTAL (09/05/2021 1:00 PM NEPHROLOGY SOCIAL WORKER) TESTOSTERONE TOTAL 14 2 - 45 ng/dL 09/12/2021 11:36 AM NEPHROLOGY SOCIAL WORKER [employer] Solutions[employer]USTIN SALDIVAR Comment: For additional information, please refer to http://education.[employer]/faq/ CwunnGcapfavfwoesAAESZNGLX591 (This link is being provided for informational/ educational purposes only.) This test was developed and its analytical performance characteristics have been determined by [facility] [place], [place]. It has not been cleared or approved by the U.S. Food and Drug Administration. This assay has been validated pursuant to the CLIA regulations and is used for clinical purposes. TESTOSTERONE FREE 1.6 0.1 - 6.4 pg/mL 09/12/2021 11:36 AM NEPHROLOGY SOCIAL WORKER [facility] Comment: This test was developed and its analytical performance characteristics have been determined by [facility] [place], [place]. It has not been cleared or approved by the U.S. Food and Drug Administration. This assay has been validated pursuant to the CLIA regulations and is used for clinical purposes. Test Performed by [facility], [address] [place], [place] Devon Jeter M.D., Ph.D., Director of Laboratories , CLIA [id number] 09/05/2021 1:00 PM NEPHROLOGY SOCIAL WORKER us Faith Frye NP LABORATORY Final Result Performing Organization Address [facility]/ZIP Co de Phone Number [facility] [address] [place], [place] , [place] [phone] * THYROID PEROXIDASE ANTIBODY (09/05/2021 1:00 PM NEPHROLOGY SOCIAL WORKER) ANTITHY PEROXID AB <1 <9 IU/mL 09/08/2021 3:45 AM NEPHROLOGY SOCIAL WORKER [facility] Comment: Test Performed by [facility] [place], [facility], [address] [place], [place] Devon Jeter M.D., Ph.D., Director of Laboratories , [facility] [id number] 09/05/2021 1:00 PM NEPHROLOGY SOCIAL WORKER us Faith Frye NP LABORATORY Final Result Performing Organization Address [facility]/ZIP Co de Phone Number [employer] [facility] [address] [place], [place] , [place] [phone] * FREE T3 (09/05/2021 1:00 PM NEPHROLOGY SOCIAL WORKER) FREE T3 3.2 2.18 - 3.98 PG/ML 09/06/2021 11:38 AM NEPHROLOGY SOCIAL WORKER [facility] 09/05/2021 1:00 PM NEPHROLOGY SOCIAL WORKER us Faith Frye NP LABORATORY Final Result [facility] [address] [place] [address], [place] [phone] * THYROXINE, FREE (FT4) (09/05/2021 1:00 PM NEPHROLOGY SOCIAL WORKER) FREE T4 0.79 0.76 - 1.46 NG/DL 09/05/2021 1:42 PM NEPHROLOGY SOCIAL WORKER [facility] 09/05/2021 1:00 PM NEPHROLOGY SOCIAL WORKER us Faith Frye NP LABORATORY Final Result Performing Organization Address [facility] Co de Phone Number [facility] [address] [place] [address], [place] [phone] * THYROID STIM HORMONE, TSH (09/05/2021 1:00 PM NEPHROLOGY SOCIAL WORKER) Pathologist [facility] TSH 1.161 0.358 - 3.74 uIU/ML 09/05/2021 1:42 PM NEPHROLOGY SOCIAL WORKER [facility] Comment: HIGH DOSES OF BIOTIN MAY INTERFERE WITH THIS TEST RESULT. CORRELATION TO CLINICAL HISTORY AND PRESENTATION RECOMMENDED. 09/05/2021 1:00 PM NEPHROLOGY SOCIAL WORKER us Faith Frye NP LABORATORY Final Result Performing Organization Address [facility] de Phone Number [facility] [address] [place] [address], [place] [phone] * VITAMIN D, 25 OH (09/05/2021 11:20 AM NEPHROLOGY SOCIAL WORKER) Pathologist [facility] VITAMIN D 25 HYDROXY S/P/B 46 30 - 100 NG/ML 09/05/2021 1:49 PM NEPHROLOGY SOCIAL WORKER [facility] Comment: ? INTERPRETATION ? DEFICIENT ??<20 ? INSUFFICIENT 20-29 ?SUFFICIENT 30-100 09/05/2021 11:2 0 AM NEPHROLOGY SOCIAL WORKER us Faith Frye NP LABORATORY Final Result Performing Organization Address [facility] de Phone Number [facility] [address] [place] [address], [place] [phone] * CORTISOL AM (09/05/2021 11:20 AM NEPHROLOGY SOCIAL WORKER) CORTISOL 8AM 6.8 4.0 - 20.0 mcg/dL 09/05/2021 7:55 PM NEPHROLOGY SOCIAL WORKER [facility] 09/05/2021 11:2 0 AM NEPHROLOGY SOCIAL WORKER us Faith Frye CHIEF CLERK LABORATORY Final Result [facility] [address] [place] [address], [place] [phone] documented in this encounter Visit Diagnoses Diagnosis Goiter- Primary Goiter, unspecified Class 1 obesity due to excess calories without serious comorbidity with body mass index (BMI) of 30.0 to 30.9 in adult Vitamin D deficiency Unspecified vitamin D deficiency Non-recurrent acute allergic otitis media of left ear Attention deficit hyperactivity disorder (ADHD), combined type documented in this encounter Additional Health Concerns Assessment Noted Time PHQ-9 Depression Total Score: 5 09/05/19 22 10:09 AM NEPHROLOGY SOCIAL WORKER documented as of this encounter Care Teams Field Spec Relationship Specialty Start Date End Date Faith Frye, CHIEF CLERK PCP - General NURSE PRACTITIONER 05/23/21 04/20/22 documented as of this encounter
--- OUTSIDE RECORDS SUMMARY | 2024-07-24 00:47 | XMS_ITS | Encounter Summary ---
Author Organization [facility] Address [address] [place] [address]. [place], [place] [id number] [place] [address] Care Team Providers Care Registered Respiratory Therapist Name Role Phone Faith Frye PRODUCTION QUALITY MANAGER Primary Care Provider Unavailabl e Reason for Visit * Reason Comments Follow Up 2 month f/u for cont roled substance. Pt states she has been more fatigued lately. Thinks a med needs adjusted. Encounter Details Date Type Department Care Team (Late st Contact Info) Description 02/25/2022 10:00 AM CDT Office Visit [facility] Family & Internal Medicine [address] [address] Faith Frye, PRODUCTION QUALITY MANAGER Follow Up (2 month f/u for controled substance. Pt states she has been more fatigued lately. Thinks a med needs adjusted. ) Social History Tobacco Use Types Packs/Day [...] Sign Reading Time Taken Comments Blood Pressure 96/67 02/25/2022 10:11 AM CDT Pulse 98 02/25/2022 10:11 AM CDT Temperature 36.8 ??C (98.3 ??F) 02/25/2022 10:11 AM C DT Respiratory Rate 18 02/25/2022 10:11 AM CDT Oxygen Saturation 98% 02/25/2022 10:11 AM CDT Inhaled Oxygen Concentration - - Weight 68.5 kg (151 lb) 02/25/2022 10:11 AM CDT Height 162.6 cm (5' 4 ) 02/25/2022 10:11 AM CDT Body Mass Index 25.92 02/25/2022 10:11 AM CDT documented in this encounter Patient Instructions * Patient Instructions* Faith Frye NP - 02/25/2022 10:00 AM CDT Increase Vyvance to 70 mg daily Do cologuard Follow up in 2 months * Attachments The following attachments cannot be sent through Care Everywhere. * ADHD Inattentive Type Discharge Instructions (North Korean) documented in this encounter Progress Notes * Faith Frye NP - 02/25/2022 10:00 AM CDT Reason for Visit: Follow Up (2 month f/u for controled substance. Pt states she has been more fatigued lately. Thinksa med needs adjusted. ) History of Present Illness: Patient here for follow up of Vyvance. Reports that she feels like it is not working as well as it has in the past ROS: Review of Systems Constitutional: Positive for fatigue. Negative for fever. HENT: Negative. Respiratory: Negative. Negative for cough and shortness of breath. Cardiovascular: Negative. Negative for chest pain. Genitourinary: Negative. Skin: Negative. Allergic/Immunologic: Negative. Negative for environmental allergies. Neurological: Negative. Hematological: Negative for adenopathy. Psychiatric/Behavioral: Positive for decreased concentration. Negative for suicidal ideas (Denies). Medications: Current Outpatient Medications: ??? azelastine (AZELASTINE) [...] mouth daily., Disp: , Rfl: ??? hydrOXYzine 25 MG capsule, TAKE ONE CAPSULE BY MOUTH EVERY 4 HOURS NEEDED, Disp: , Rfl: ??? loratadine (CLARITIN) 10 MG tablet, 1 tablet., Disp: , Rfl: ??? Multiple Vitamin (MULTIVITAMIN ADULT OR), Take by mouth daily. , Disp: , Rfl: ??? pravastatin 20 MG tablet, Take 1 tablet (20 mg total) by mouth nightly at bedtime., Disp: 30 tablet, Rfl: 3 ??? Vitamin D, Cholecalciferol, 25 MCG (1000 UT) Cap, Take 1 tablet by mouth daily., Disp: 30 capsule, Rfl: 3 ??? lisdexamfetamine (VYVANSE) 70 MG capsule, Take 1 capsule (70 mg total) by mouth every morning.,Disp: 30 capsule, Rfl: 0 No Known Allergies Past Medical History: Diagnosis [...] test results and coordinationof care. Filed Vitals: 02/25/22 1011 BP: 96/67 Pulse: 98 Resp: 18 Temp: 98.3 ??F (36.8 ??C) TempSrc: Temporal SpO2: 98% Weight: 68.5 kg (151 lb) Height: 5' 4 (1.626 m) Assessment Encounter Diagnose(s) ICD-10-CM ICD-9-CM SNOMED CT(R) 1. Attention deficit hyperactivity disorder (ADHD), combined type F90.2 314.01 ATTENTION DEFICIT HYPERACTIVITY DISORDER, COMBINED TYPE lisdexamfetamine (VYVANSE) 70 MG capsule Recommendations and Plan: Increase Vyvance to 70 mg daily Do cologuard Follow up in 2 months 1. Attention deficit hyperactivity disorder (ADHD), combined type Increase vyvance - lisdexamfetamine (VYVANSE) 70 MG capsule; Take 1 capsule (70 mg total) by mouth every morning. Dispense: 30 capsule; Refill: 0 2. Screening for colon cancer - COLOGUARD (EXACT SCIENCE) FAITH FRYE NP 02/25/2022 10:40 AM Cosigned by Anil Philip MD at 02/26/2022 7:56 PM CDT documented in this encounter Plan of Treatment Upcoming Encounters Date Type Department Care Team (Late st Contact Info) Description 09/08/2024 10:10 AM MOLD BURNER Office Visit [facility] Family Medicine [facility] [address] [place] [address] Samantha Sanders MD [address] [place] [address] documented as of this encounter Visit Diagnoses Diagnosis Attention deficit hyperactivity disorder (ADHD), combined type- Primary Screening for colon cancer Special screening for malignant neoplasms, colon documented in this encounter Additional Health Concerns Assessment Noted Time PHQ-9 Depression Total Score: 5 09/05/19 22 10:09 AM MOLD BURNER documented as of this encounter Care Teams Registered Respiratory Therapist Relationship Specialty Start Date End Date Faith Frye, PRODUCTION QUALITY MANAGER PCP - General NURSE PRACTITIONER 05/23/21 04/20/22 documented as of this encounter
--- OUTSIDE RECORDS SUMMARY | 2024-07-24 00:47 | XMS_ITS | Encounter Summary ---
Author Organization [facility] Address [address] [place] [address]. [place], [place] [address] [place] [address] Care Team Providers Care Ground Nuclear Weapons Assembly Officer Name Role Phone Faith Galvez SUPERVISOR FINAL Primary Care Provider Unavailabl e Encounter Details Date Type Department Care Team (Latest Contact Info) Description 09/03/2021 Travel Social History Tobacco Use Types Packs/Day Years Used Date Smoking Tobacco: Every Day Cigarettes 0.3 20 Smokeless Tobacco: Never Comments:provider to middle school counselor Alcohol Use Standard Drinks/Week Comments Yes [...] please move on to questions 3-9 0 08/20/2021 Comments No Sex and Gender Information Value Date Recorded Sex Assigned at Not on file Legal Sex Female 4:47 PM CDT Gender Identity Not on file Sexual Orientation Not on file COVID-19 Exposure Response Date Recorded In the last 10 days, have yo u been in contact with someone who was confirmed or suspected to have Coronavirus/COVID-19? No / Unsure 09/02/2021 3:14 PM PLANNER documented as of this encounter Plan of Treatment Upcoming Encounters Date Type Department Care Team ( Contact Info) Description 09/08/2024 10:10 AM PLANNER Office Visit [facility] Family Medicine [facility] [address] [place] [address] Samantha Sanders MD [address] [place] [address] documented as of this encounter Visit Diagnoses Not on filedocumented in this encounter Additional Health Concerns Assessment Noted Time PHQ-9 Depression Total Score: 0 08/20/19 12:49 PM PLANNER documented as of this encounter Care Teams Ground Nuclear Weapons Assembly Officer Relationship Specialty Start Date End Date Faith Galvez, SUPERVISOR FINAL PCP - General NURSE PRACTITIONER 05/23/21 04/20/22 documented as of this encounter
--- OUTSIDE RECORDS SUMMARY | 2024-07-24 00:47 | XMS_ITS | Encounter Summary ---
Author Organization [facility] Address [address] [place] [address]. [place], [place] [phone] [place], [place] [id number] Care Team Providers Care Fur Finisher Seamstress Name Role Phone Faith Galvez DOMESTIC MAID Primary Care Provider Unavailabl e Reason for Visit * Reason Onset Date Comments Medication 05/24/2021 Encounter Details Date Type Department Care Team (Late st Contact Info) Description 05/24/2021 Telephone [facility] Multispecialty Care - [address] [place] [address] Faith Galvez, DOMESTIC MAID Medication Social History Tobacco Use Types Packs/Day Years Used Date Smoking Tobacco: Every Day Cigarettes 0.3 20 Smokeless Tobacco: Never Comments:provider to general counselor Alcohol Use Standard Drinks/Week Comments Yes [...] have Coronavirus / COVID-19? No / Unsure 05/23/2021 8:30 AM CDT documented as of this encounter Progress Notes * Radha Ortiz RN - 05/24/2021 1:43 PM CDT DUPLICATE TASK, PLEASE REFER TO TELEPHONE ENCOUNTER 05/23/21 * Ninfa Chi LPN - 05/24/2021 1:28 PM CDT lisdexsamfetamine dimesylate 30 mg needs prior approval Old one 05/20/12 Has anyone started to work on a new approval? If they don't approve what other medication would be recommended Does FAITH thinks it is worth the wait to have lisdexsamfetamine approved With the expense and continued S/S She use to take phentermine for the ADHD and weight loss Don't like how phentermine makes her feel [phone] Pt is not exactly happy with either of these drugs No sure what to do documented in this encounter Plan of Treatment Upcoming Encounters Date Type Department Care Team (Late st Contact Info) Description 09/08/2024 10:10 AM MIXING MACHINE ATTENDANT Office Visit [facility] Family Medicine - [place] [address] [place] [phone] Samantha Sanders MD [address] [place], [place] [phone] documented as of this encounter Visit Diagnoses Not on filedocumented in this encounter Additional Health Concerns Assessment Noted Time PHQ-9 Depression Total Score: 2 05/23/20 8:38 AM CDT documented as of this encounter Care Teams Fur Finisher Seamstress Relationship Specialty Start Date End Date Faith Galvez, DOMESTIC MAID PCP - General NURSE PRACTITIONER 05/23/21 04/20/22 documented as of this encounter
--- OUTSIDE RECORDS SUMMARY | 2024-07-24 00:47 | XMS_ITS | Encounter Summary ---
Author Organization [facility] Address [address] [place] [address]. [place], [place] [address] [place], [place] [id number] Care Team Providers Care Pelt Shearer Name Role Phone Faith Galvez ARCHITECT INTERNSHIP Primary Care Provider Unavailabl e Encounter Details Date Type Department Care Team (Late Contact Info) Description 09/26/2021 Orders Only [facility] Family & Internal Medicine [address] [address] Faith Galvez, ARCHITECT INTERNSHIP Social History Tobacco Use Types Packs/Day Years Used Date Smoking Tobacco: Every Day Cigarettes 0.3 20 Smokeless Tobacco: Never Comments:provider to counseling psychologist Alcohol Use Standard Drinks/Week Comments Yes 0 [...] Coronavirus/COVID-19? No / Unsure 09/25/2021 1:04 PM HULL DRAFTER documented as of this encounter Plan of Treatment Upcoming Encounters Date Type Department Care Team (Late st Contact Info) Description 09/08/2024 10:10 AM HULL DRAFTER Office Visit [facility] Family Medicine - [place] [address] [place] [address] Samantha Sanders MD [address] [place] [address] documented as of this encounter Visit Diagnoses Diagnosis Attention deficit hyperactivity disorder (ADHD), combined type- Primary documented in this encounter Additional Health Concerns Assessment Noted Time PHQ-9 Depression Total Score: 5 09/05/19 22 10:09 AM HULL DRAFTER documented as of this encounter Care Teams Pelt Shearer Relationship Specialty Start Date End Date Faith Galvez, ARCHITECT INTERNSHIP PCP - General NURSE PRACTITIONER 05/23/21 04/20/22 documented as of this encounter
--- OUTSIDE RECORDS SUMMARY | 2024-07-24 00:47 | XMS_ITS | Encounter Summary ---
Author Organization [facility] Address [address] [place] [address]. [place], [place] [address] [place] [address] Care Team Providers Care Piping Engineer Name Role Phone Faith Galvez MANAGEMENT ARCHITECT Primary Care Provider Unavailabl e Encounter Details Date Type Department Care Team (Latest Contact Info) Description 09/02/2021 Travel Social History Tobacco Use Types Packs/Day Years Used Date Smoking Tobacco: Every Day Cigarettes 0.3 20 Smokeless Tobacco: Never Comments:provider to evp general counsel Alcohol Use Standard Drinks/Week Comments Yes 0 [...] Coronavirus/COVID-19? No / Unsure 09/02/2021 3:14 PM EDUCATION FINANCE PROCESSOR documented as of this encounter Plan of Treatment Upcoming Encounters Date Type Department Care Team ( Contact Info) Description 09/08/2024 10:10 AM EDUCATION FINANCE PROCESSOR Office Visit [facility] Family Medicine [facility] [address] [place] [address] Samantha Sanders MD [address] [place] [address] documented as of this encounter Visit Diagnoses Not on filedocumented in this encounter Additional Health Concerns Assessment Noted Time PHQ-9 Depression Total Score: 0 08/20/19 12:49 PM EDUCATION FINANCE PROCESSOR documented as of this encounter Care Teams Piping Engineer Relationship Specialty Start Date End Date Faith Galvez, MANAGEMENT ARCHITECT PCP - General NURSE PRACTITIONER 05/23/21 04/20/22 documented as of this encounter
--- OUTSIDE RECORDS SUMMARY | 2024-07-24 00:47 | XMS_ITS | Encounter Summary ---
Author Organization [facility] Address [address] [place] [address]. [place], [place] [address] [place], [place] [id number] Care Team Providers Care Local Hazmat Driver Name Role Phone Faith Galvez CONTACT AGENT Primary Care Provider Unavailabl e Reason for Visit * Reason Onset Date Comments Error 12/05/2021 Encounter Details Date Type Department Care Team (Late st Contact Info) Description 12/05/2021 Telephone [facility] Family & Internal Medicine [address] [address] Faith Galvez, CONTACT AGENT Error Social History Tobacco Use Types Packs/Day [...] as of this encounter Progress Notes * Mecca Perry - 12/05/2021 11:01 AM CDT error Future Appointments Date Time Provider Department Center 01/08/2022 9:00 AM Faith Galvez NP [id number] documented in this encounter Plan of Treatment Upcoming Encounters Date Type Department Care Team (Late st Contact Info) Description 09/08/2024 10:10 AM IRRIGATION SUPERVISOR Office Visit [facility] Family Medicine - [place] [address] [place], [place] [id number] Samantha Sanders MD [address] [place], [place] [phone] documented as of this encounter Visit Diagnoses Not on filedocumented in this encounter Additional Health Concerns Assessment Noted Time PHQ-9 Depression Total Score: 5 09/05/19 22 10:09 AM IRRIGATION SUPERVISOR documented as of this encounter Care Teams Local Hazmat Driver Relationship Specialty Start Date End Date Faith Galvez NP PCP - General NURSE PRACTITIONER 05/23/21 04/20/22 documented as of this encounter
--- OUTSIDE RECORDS SUMMARY | 2024-07-24 00:47 | XMS_ITS | Encounter Summary ---
Author Organization [facility] Address [address] [place] [address]. [place], [place] [address] [place] [address] Care Team Providers Care Fusing Machine Feeder Name Role Phone Faith Galvez NP Primary Care Provider Charley Solorzano MD Primary Care Provider [phone] Samantha Sanders MD Primary Care Provider + Encounter Details Date Type Department Care Team (Late st Contact Info) Description 09/06/2021 PushPage Message Enc [facility] Family & Internal Medicine [address] [address] [facility] Provider lab results Social History Tobacco Use Types Packs/Day Years Used Date Smoking Tobacco: Every Day Cigarettes 0.3 20 Smokeless Tobacco: Never Comments:provider to employment counselor Alcohol Use Standard Drinks/Week Comments Yes [...] Coronavirus/COVID-19? No / Unsure 09/05/2021 9:59 AM EMAIL DEPLOYMENT SPECIALIST documented as of this encounter Plan of Treatment Upcoming Encounters Date Type Department Care Team (Late st Contact Info) Description 09/08/2024 10:10 AM EMAIL DEPLOYMENT SPECIALIST Office Visit [facility] Family Medicine - [place] [address] [place] [address] Samantha Sanders MD [address] [place] [address] documented as of this encounter Visit Diagnoses Not on filedocumented in this encounter Additional Health Concerns Infection Onset Date Last Indicated Resolved Time COVID-19 Rule Out 05/25/2023 05/25/2023 05/25/2023 10:11 AM EMAIL DEPLOYMENT SPECIALIST COVID-19 Confirmed 05/25/2023 05/25/2023 12:32 AM EMAIL DEPLOYMENT SPECIALIST Assessment Noted Time PHQ-9 Depression Total Score: 5 09/05/19 10:09 AM EMAIL DEPLOYMENT SPECIALIST documented as of this encounter Care Teams Fusing Machine Feeder Relationship Specialty Start Date End Date Faith Galvez NP PCP - General NURSE PRACTITIONER 05/23/21 04/20/22 [place] [address] [facility] [place], [place] [id number] PCP - General FAMILY PRACTICE 04/21/22 03/03/24 Samantha Sanders MD [address] [place] [address] PCP - General FAMILY PRACTICE 03/07/24 documented as of this encounter
--- OUTSIDE RECORDS SUMMARY | 2024-07-24 00:47 | XMS_ITS | Encounter Summary ---
Author Organization [facility] Address [address] [place] [address]. [place], [place] [address] [place] [address] Care Team Providers Care Sock Knitting Machine Operator Name Role Phone Faith Galvez HOSPICE EDUCATOR Primary Care Provider Unavailabl e Encounter Details Date Type Department Care Team (Latest Contact Info) Description 01/03/2022 Travel Social History Tobacco Use Types Packs/Day [...] suspected to have Coronavirus/COVID-19? No / Unsure 01/03/2022 11:36 AM CDT documented as of this encounter Plan of Treatment Upcoming Encounters Date Type Department Care Team ( Contact Info) Description 09/08/2024 10:10 AM HOSPITAL COOK Office Visit [facility] Family Medicine [place] [address] [facility] [address] [place] [address] Samantha Sanders MD [address] [place] [address] documented as of this encounter Visit Diagnoses Not on filedocumented in this encounter Additional Health Concerns Assessment Noted Time PHQ-9 Depression Total Score: 5 09/05/19 22 10:09 AM HOSPITAL COOK documented as of this encounter Care Teams Sock Knitting Machine Operator Relationship Specialty Start Date End Date Faith Galvez, HOSPICE EDUCATOR PCP - General NURSE PRACTITIONER 05/23/21 04/20/22 documented as of this encounter
--- OUTSIDE RECORDS SUMMARY | 2024-07-24 00:47 | XMS_ITS | Encounter Summary ---
Author Organization [facility] Address [address] [place] [address]. [place], [place] [address] [place] [address] Care Team Providers Care Credentials Specialist Name Role Phone Faith Galvez NP Primary Care Provider Charley Solorzano MD Primary Care Provider [phone] Samantha Sanders MD Primary Care Provider + Encounter Details Date Type Department Care Team (Late st Contact Info) Description 02/02/2022 [email or web address] Message Enc [facility] Family & Internal Medicine [address] [address] Faith Galvez, DORINA Segundo Social History Tobacco Use Types Packs/Day Years [...] Progress Notes * Alanna Capone RN - 03/25/2022 11:08 AM CDT . documented in this encounter Plan of Treatment Upcoming Encounters Date Type Department Care Team (Late st Contact Info) Description 09/08/2024 10:10 AM LANDSCAPE CREW LEADER Office Visit [facility] Family Medicine - [place] [address] [place] [address] Samantha Sanders MD [address] [place] [address] documented as of this encounter Visit Diagnoses Not on filedocumented in this encounter Additional Health Concerns Infection Onset Date Last Indicated Resolved Time COVID-19 Rule Out 05/25/2023 05/25/2023 05/25/2023 10:11 AM LANDSCAPE CREW LEADER COVID-19 Confirmed 05/25/2023 05/25/2023 12:32 AM LANDSCAPE CREW LEADER Assessment Noted Time PHQ-9 Depression Total Score: 5 09/05/19 22 10:09 AM LANDSCAPE CREW LEADER documented as of this encounter Care Teams Credentials Specialist Relationship Specialty Start Date End Date Faith Galvez NP PCP - General NURSE PRACTITIONER 05/23/21 04/20/22 [place] [address] [facility] [address] [place] [address] PCP - General FAMILY PRACTICE 04/21/22 03/03/24 Samantha Sanders MD [address] [place] [address] PCP - General FAMILY PRACTICE 03/07/24 documented as of this encounter
--- OUTSIDE RECORDS SUMMARY | 2024-07-24 00:47 | XMS_ITS | Encounter Summary ---
Author Organization [facility] Address [address] [place] [address]. [place], [place] [address] [place], [place] [phone] Care Team Providers Care Sign Language Teacher Name Role Phone Faith Galvez NP Primary Care Provider Unavailabl e Reason for Visit * Reason Onset Date Comments Medication Problem 05/23/2021 Encounter Details Date Type Department Care Team (Late st Contact Info) Description 05/23/2021 Telephone [facility] Multispecialty Care - [address] [place] [address] Faith Galvez NP Medication Problem Social History Tobacco Use Types Packs/Day Years Used Date Smoking Tobacco: Every Day Cigarettes 0.3 20 Smokeless Tobacco: Never Comments:provider to after school counselor Alcohol Use Standard Drinks/Week Comments [...] as of this encounter Progress Notes * Faith Galevz NP - 05/27/2021 11:16 AM CST ty LE MAKER * Radha Ortiz RN - 05/27/2021 10:36 AM CST PA for Vyvanse was approved from 05/25/21-05/25/22. PA # [id number]. Bonit message sent to pt making her aware. LE MAKER * Ninfa Chi LPN - 05/24/2021 4:21 PM CDT Pt called read latest messages V/U no question * Radha Ortiz RN - 05/24/2021 2:58 PM CDT Per PA, we will have an answer by tomorrow. PT can call her pharmacy tomorrow to see if covered. Attempted to contact pt to discuss- [email or web address]. Will check back on Thursday. Rip Welch made aware * Faith Galvez NP - 05/24/2021 2:52 PM CDT Ok ty * Radha Ortiz RN - 05/24/2021 1:51 PM CDT Urgent PA for Vyvanse was submitted, awaiting response at this time. * Radha Ortiz RN - 05/24/2021 1:43 PM CDT Ninfa Chi LPN 6 minutes ago (1:35 PM) NR lisdexsamfetamine dimesylate 30 mg needs prior approval [...] Don't like how phentermine makes her feel [phone] Pt is not exactly happy with either of these drugs No sure what to do * Radha Ortiz RN - 05/24/2021 9:45 AM CDT PA submitted through [facility]. Stinson BEVEYUAF * Radha Ortiz RN - 05/23/2021 3:49 PM CDT Nurse called pt to discuss. She stated that she called [facility] and they informed her that her PA hasexpired on 05/20/21 and she will need a new PA started. * Faith Galvez NP - 05/23/2021 1:10 PM CDT I prescribed the same medication in a lower dose. * Mecca Perry - 05/23/2021 12:14 PM CDT error * Radha Ortiz RN - 05/23/2021 11:27 AM CDT Please advise * Rosemary Kiana Raymond - 05/23/2021 10:43 AM CDT Patient called and stated that the medication she was given today the Vyvance is not covered by herIns. without a prior auth, she states that it was approved prior, she states that she was on generic adderall extended release. She wants to know what you want to replace the Vyvance with? documented in this encounter Plan of Treatment Upcoming Encounters Date Type Department Care Team (Late st Contact Info) Description 09/08/2024 10:10 AM HANDLE MAKER Office Visit [facility] Family Medicine - [place] [address] [facility] [address] [place] [phone] Samantha Sanders MD [address] [place], [place] [phone] documented as of this encounter Visit Diagnoses Not on filedocumented in this encounter Additional Health Concerns Assessment Noted Time PHQ-9 Depression Total Score: 2 05/23/20 21 8:38 AM CDT documented as of this encounter Care Teams Sign Language Teacher Relationship Specialty Start Date End Date Faith Galvez, AGENT TICKETING GATE PCP - General NURSE PRACTITIONER 05/23/21 04/20/22 documented as of this encounter
--- OUTSIDE RECORDS SUMMARY | 2024-07-24 00:47 | XMS_ITS | Encounter Summary ---
Author Organization [facility] Address [address] [place] [address]. [place], [place] [id number] [place], [place] [id number] Care Team Providers Care Senior Business Broker Name Role Phone Faith Galvez COUNTY TREASURER Primary Care Provider Unavailabl e Reason for Visit * Reason Onset Date Comments Question 06/24/2021 Encounter Details Date Type Department Care Team (Late st Contact Info) Description 06/24/2021 Telephone [facility] Multispecialty Care - [address] [place] [address] Faith Galvez, COUNTY TREASURER Question Social History Tobacco Use Types Packs/Day Years Used Date Smoking Tobacco: Every Day Cigarettes 0.3 20 Smokeless Tobacco: Never Comments:provider to adolescent counselor Alcohol Use Standard Drinks/Week Comments Yes [...] COVID-19? No / Unsure 06/20/2021 11:44 AM LICENSED EMBALMER SUPERVISOR documented as of this encounter Progress Notes * Radha Ortiz RN - 06/24/2021 3:32 PM CST spirolactone 50mg daily sent in per Rip Galvez NP NSED EMBALMER SUPERVISOR * Radha Ortiz RN - 06/24/2021 3:29 PM CST Pt made aware and v/u. She was asking if she should do melatonin or try Lunesta again. She then stated she will just try Melatonin again and see how she does. She does need script for spirolactone sent. Please send. NSED EMBALMER SUPERVISOR * Radha Ortiz RN - 06/24/2021 3:08 PM CST . NSED EMBALMER SUPERVISOR * Faith Galvez NP - 06/24/2021 2:32 PM CST Trazodone can cause vivid dreams and she can stop and see if the swelling goes down but the Spirolactone will help. NSED EMBALMER SUPERVISOR * Radha Ortiz RN - 06/24/2021 2:30 PM CST Please advise NSED EMBALMER SUPERVISOR * Judy Koch - 06/24/2021 2:25 PM CST Pt called stating she has been retaining a lot of water and wondering if Trazodone is causing this and been having vivid dreams She is wondering if she can go back on Lunesta she said she will use the [employer] coupon for that since her insurance does not cover that? Pt also wanted to know if she wentback on the Spironolactone would that help with the water retention and hormonal imbalance please advise c/b # [phone] NSED EMBALMER SUPERVISOR documented in this encounter Plan of Treatment Upcoming Encounters Date Type Department Care Team (Late st Contact Info) Description 09/08/2024 10:10 AM LICENSED EMBALMER SUPERVISOR Office Visit [facility] Family Medicine - [place] [address] [place], [place] [id number] Samantha Sanders MD [address] [place] [address] documented as of this encounter Visit Diagnoses Diagnosis Acne- Primary Other acne documented in this encounter Additional Health Concerns Assessment Noted Time PHQ-9 Depression Total Score: 2 05/23/20 21 8:38 AM CDT documented as of this encounter Care Teams Senior Business Broker Relationship Specialty Start Date End Date Faith Galvez, COUNTY TREASURER PCP - General NURSE PRACTITIONER 05/23/21 04/20/22 documented as of this encounter
--- OUTSIDE RECORDS SUMMARY | 2024-07-24 00:47 | XMS_ITS | Encounter Summary ---
Author Organization [facility] Address [address] [place] [address]. [place], [place] [address] [place] [address] Care Team Providers Care Rivet Tester Name Role Phone Faith Galvez NP Primary Care Provider Unavailabl e Reason for Referral * Imaging (Routine) - Closed Specialty Diagnoses / Procedures Referred By [place] Referred To Contact RADIOLOGY Diagnoses Goiter Procedures US THYROID Siddhartha Simon MD Referral ID Status Reason Start Date Expiration Date Visits Re quested Visits Authorized [id number] Closed 08/20/2021 09/17/2022 1 1 ICITY EXPERT Reason for Visit * Imaging (Routine) - Closed Specialty Diagnoses / Procedures Referred By [place] Referred To Contact RADIOLOGY Diagnoses Goiter Procedures US THYROID Siddhartha Simon MD Referral ID Status Reason Start Date Expiration Date Visits Re quested Visits Authorized [id number] Closed 08/20/2021 09/17/2022 1 1 Encounter Details Date Type Department Care Team (Latest Contact Info) Description 09/03/2021 2:51 PM PUBLICITY EXPERT - 09/03/2021 11:59 PM PUBLICITY EXPERT Hospital Encounter [facility] Ultrasound [id number] [id number] Siddhartha Simon MD Discharge Disposition: Home or Self Care (Routine [...] Coronavirus/COVID-19? No / Unsure 09/02/2021 3:14 PM PUBLICITY EXPERT documented as of this encounter Medications at Time of Discharge Multiple Vitamin (MULTIVITAMIN ADULT OR) Take by mouth daily. azelastine 0.1 % nasal sprayIndications: Allergies 1 spray in each nostril daily 30 mL 04/04/2021 2 buPROPion 75 MG tabletIndications :Depression with anxiety Take 0.5 tablets (37.5 mg total) by mouth daily. 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 30 tablet 08/07/2021 2 SPIRONOLACTONE 50 MG tabletIndications :Acne TAKE 1 TABLET(50 MG) BY MOUTH DAILY 30 tablet 07/31/2021 2 Vitamin D, Cholecalciferol, 25 MCG (1000 UT) Cap Take by mouth daily. 2 documented as of this encounter Plan of Treatment Upcoming Encounters Date Type Department Care Team (Late st Contact Info) Description 09/08/2024 10:10 AM PUBLICITY EXPERT Office Visit [facility] Family Medicine - [place] [address] [place] [address] Samantha Sanders MD [address] [place] [address] documented as of this encounter Procedures Procedure Name Priority Date/Time Associated Diagnosis Comments US THYROID Routine 09/03/2021 3:19 PM PUBLICITY EXPERT Goiter documented in this encounter Results * US THYROID (09/03/2021 3:19 PM PUBLICITY EXPERT) Anatomical Region Laterality Modality Neck Ultrasound 09/03/2021 3:46 PM PUBLICITY EXPERT Impressions 09/03/2021 3:48 PM PUBLICITY EXPERT IMPRESSION: 1. RIGHT THYROID GLAND MEASURES 4.8 x 1.3 x 1.4 cm. 2. LEFT THYROID GLAND MEASURES 4.7 x 1.3 x 1.2 cm. 3. ??FAIRLY HOMOGENEOUS ECHOTEXTURE TO THE THYROID GLAND WITHOUT FOCAL SOLID MASS. NORMAL COLOR FLOW. WITHIN THE MID ASPECT OF THE RIGHT LOBE OF THE THYROID GLAND THERE IS A FAIRLY WELL-DEFINED PROBABLE SLIGHTLY COMPLEX COLLOID CYST MEASURING 3.3 X 2.8 X 4.3 MM. Ordered By: SIDDHARTHA SIMON Interpreted By: Kevin Maier, 09/03/2021 3:46 PM Narrative 09/03/2021 3:48 PM PUBLICITY EXPERT IMAGING STUDIES: US THYROID DATE: 09/03/2021 2:57 PM CLINICAL HISTORY: neck fullness ?? . ??GOITER Comparison: No comparison Procedure Note Jose Juan Maier MD - 09/03/2021 IMAGING STUDIES: US THYROID DATE: 09/03/2021 2:57 PM CLINICAL HISTORY: neck fullness . GOITER Comparison: No comparison IMPRESSION: 1. RIGHT THYROID GLAND MEASURES 4.8 x 1.3 x 1.4 cm. 2. LEFT THYROID GLAND MEASURES 4.7 x 1.3 x 1.2 cm. 3. FAIRLY HOMOGENEOUS ECHOTEXTURE TO THE THYROID GLAND WITHOUT FOCALSOLID MASS. NORMAL COLOR FLOW. WITHIN THE MID ASPECT OF THE RIGHT LOBE OF THE THYROID GLAND THERE IS AFAIRLY WELL-DEFINED PROBABLE SLIGHTLY COMPLEX COLLOID CYST MEASURING 3.3 X2.8 X 4.3 MM. Ordered By: SIDDHARTHA SIMON Interpreted By: Kevin Maier, 09/03/2021 3:46 PM us Siddhartha Simon MD ULTRASOUND Final Result documented in this encounter Visit Diagnoses Diagnosis Goiter Goiter, unspecified documented in this encounter Additional Health Concerns Assessment Noted Time PHQ-9 Depression Total Score: 0 08/20/19 12:49 PM PUBLICITY EXPERT documented as of this encounter Care Teams Rivet Tester Relationship Specialty Start Date End Date Faith Galvez, COMMISSIONED SALES ASSOCIATE PCP - General NURSE PRACTITIONER 05/23/21 04/20/22 documented as of this encounter
--- OUTSIDE RECORDS SUMMARY | 2024-07-24 00:47 | XMS_ITS | Encounter Summary ---
Author Organization [facility] Address [address] [place] [address]. [place], [place] [id number] [place] [address] Care Team Providers Care Laboratory Mechanic Helper Name Role Phone Faith Frye SYSTEM MANAGER Primary Care Provider Unavailabl e Reason for Visit * Reason Comments Follow Up 1 mo f/u Encounter Details Date Type Department Care Team (Late st Contact Info) Description 08/07/2021 7:00 AM CARPET CLEANER Office Visit [facility] Family & Internal Medicine [address] [phone] Faith Frye, SYSTEM MANAGER Follow Up (1 mo f/u) Social History Tobacco Use Types Packs/Day Years Used Date Smoking Tobacco: Every Day Cigarettes 0.3 20 Smokeless Tobacco: Never Tobacco Cessation:Counseling Given: No Comments:provider to area counselor Alcohol Use Standard Drinks/Week Comments Yes [...] COVID-19? No / Unsure 08/07/2021 6:55 AM CARPET CLEANER documented as of this encounter Last Filed Vital Signs Vital Sign Reading Time Taken Comments Blood Pressure 115/80 08/07/2021 7:05 AM CARPET CLEANER Pulse 87 08/07/2021 7:05 AM CARPET CLEANER Temperature 36.5 ??C (97.7 ??F) 08/07/2021 7:05 AM CS T Respiratory Rate 18 08/07/2021 7:05 AM CARPET CLEANER Oxygen Saturation 98% 08/07/2021 7:05 AM CARPET CLEANER Inhaled Oxygen Concentration - - Weight 72 kg (158 lb 12.8 oz) 08/07/2021 7:05 AM CARPET CLEANER Height 154.9 cm (5' 1 ) 08/07/2021 7:05 AM CARPET CLEANER Body Mass Index 30 08/07/2021 7:05 AM CARPET CLEANER documented in this encounter Patient Instructions * Patient Instructions* Faith Frye, SYSTEM MANAGER - 08/07/2021 7:00 AM CARPET CLEANER Patient Education Patient Education Obesity Discharge Instructions, [...] more everyday activities like yard work or stock clerk self service store. ?? Choose activities that you like to [...] 2021-01-09 Consumer Information Use and Disclaimer This generalized [...] or approved for treating a specific patient. [employer] and its affiliates disclaim any warranty or liability relating to this information or the use thereof. The use of this information is governed by the Terms of Use, available at https://www.[employer]/en/solutions/lexicomp/about/gerri Copyright Copyright ?? 2020 [employer] and its affiliates and/or licensors. All rights reserved. Continue phentermine daily Obesity: Pt has elevated weight with BMI Body mass index is 30 kg/m??., and will need to work hard on reducing carbohydrates and total calories. They may use the free smart phone apps such as [employer] [facility] to help track calories and try to reduce by 15% every 4 weeks. They should also work on reducing their total portion sizes to try to reduce the size of their stomach. They should be exercisingabout 30 minutes every day with cardio work outs. They should strive to avoid regular soda, juices and alcohol. Recommended limiting GPS foods (Grains, Potatoes, Sugars) as much as possible. Eating foot that it is not highly processed and that they can recognize. Eating when they are hungry and notby a time schedule. We aim to have them lose about 1 pound per week and 5 pounds per month. If theyare working hard and not succeeding we may consider using weight loss medications in the future butthese do come with risks. Follow up in 1 month or sooner if needed ET CLEANER documented in this encounter Progress Notes * Faith Frye NP - 08/07/2021 7:00 AM CST Reason for Visit: Follow Up (1 mo f/u) History of Present Illness: Pt. Here for weight loss follow up. Pt. Taking Phentermine and lost 3 lbs since last visit. Denies any shortness of breath or chest pains. States that she feels like the medication is helping. ROS: Review of Systems Constitutional: Negative. Negative for fatigue and fever. Respiratory: Negative. Negative for cough and shortness of breath. Cardiovascular: Negative. Negative for chest pain. Endocrine: Negative. Musculoskeletal: Negative. Negative for back pain. Skin: Negative. Allergic/Immunologic: Negative. Negative for environmental allergies. Hematological: Negative for adenopathy. Psychiatric/Behavioral: Negative. Negative for suicidal ideas (Denies). Medications: Current Outpatient Medications: ??? azelastine 0.1 % nasal spray, 1 spray in each nostril daily, Disp: 30 mL, Rfl: 0 ??? buPROPion 75 MG tablet, Take 0.5 tablets (37.5 mg total) by mouth daily., Disp: 15 tablet, Rfl:3 ??? Eszopiclone 3 MG Tab, TAKE 1 TABLET BY MOUTH AT BEDTIME, Disp: 30 tablet, Rfl: 0 ??? Multiple Vitamin (MULTIVITAMIN ADULT OR), , Disp: , Rfl: ??? phentermine 37.5 MG tablet, Take 1 tablet (37.5 mg total) by mouth every morning before breakfast for 30 days., Disp: 30 tablet, Rfl: 0 ??? SPIRONOLACTONE 50 MG tablet, TAKE 1 [...] Never Used ??? Tobacco comment: provider to area counselor Vaping Use ??? Vaping Use: Never [...] acute distress. Appearance: Normal appearance. She is obese. Cardiovascular: Rate and Rhythm: Normal rate and regular rhythm. Pulmonary: Effort: Pulmonary effort is normal. Chest: Chest wall: No tenderness. Abdominal: Palpations: Abdomen is soft. Tenderness: There is no abdominal tenderness. Musculoskeletal: General: No swelling. Normal range of motion. Skin: General: Skin is warm. Neurological: Mental Status: She is alert and oriented to person, place, and time. Psychiatric: Mood and Affect: Mood normal. Behavior: Behavior normal. I spent 25 minutes today reviewing the patient's medical record, obtaining history, performing an exam, ordering medications, tests, and/or procedures, documenting in the medical record, counseling and educating the patient/family/caregiver and coordination of care. Filed Vitals: 08/07/21 0705 BP: 115/80 Pulse: 87 Resp: 18 Temp: 97.7 ??F (36.5 ??C) TempSrc: Temporal SpO2: 98% Weight: 72 kg (158 lb 12.8 oz) Height: 5' 1 (1.549 m) Assessment Encounter Diagnose(s) ICD-10-CM ICD-9-CM SNOMED CT(R) 1. Class 1 obesity due to excess calories without serious comorbidity with body mass index (BMI) of30.0 to 30.9 in adult E66.09 278.00 OBESITY phentermine 37.5 MG tablet Z68.30 V85.30 Recommendations and Plan: Continue Phentermine Follow up in 1 month or sooner if needed 1. Class 1 obesity due to excess calories without serious comorbidity with body mass index (BMI) of30.0 to 30.9 in adult Obesity: Pt has elevated weight with BMI Body mass index is 30 kg/m??., and will need to work hard on reducing carbohydrates and total calories. They may use the free smart phone apps such as [employer] [facility] to help track calories and try to reduce by 15% every 4 weeks. They should also work on reducing their total portion sizes to try to reduce the size of their stomach. They should be exercisingabout 30 minutes every day with cardio work outs. They should strive to avoid regular soda, juices and alcohol. Recommended limiting GPS foods (Grains, Potatoes, Sugars) as much as possible. Eating foot that it is not highly processed and that they can recognize. Eating when they are hungry and notby a time schedule. We aim to have them lose about 1 pound per week and 5 pounds per month. If theyare working hard and not succeeding we may consider using weight loss medications in the future butthese do come with risks. - phentermine 37.5 MG tablet; Take 1 tablet (37.5 mg total) by mouth every morning before breakfastfor 30 days. Dispense: 30 tablet; Refill: 0 FAITH FRYE NP 08/07/2021 7:36 AM Cosigned by Anil Philip MD at 08/07/2021 8:11 AM CARPET CLEANER ET CLEANER ET CLEANER documented in this encounter Plan of Treatment Upcoming Encounters Date Type Department Care Team (Late st Contact Info) Description 09/08/2024 10:10 AM CARPET CLEANER Office Visit [facility] Family Medicine - [place] [address] [facility] [address] [place] [id number] Samantha Sanders MD [address] [facility] [address] [place] [address] documented as of this encounter Visit Diagnoses Diagnosis Class 1 obesity due to excess calories without serious comorbidity with body mass index (BMI) of 30.0 to 30.9 in adult- Primary documented in this encounter Additional Health Concerns Assessment Noted Time PHQ-9 Depression Total Score: 2 05/23/20 8:38 AM CDT documented as of this encounter Care Teams Laboratory Mechanic Helper Relationship Specialty Start Date End Date Faith Frye NP PCP - General NURSE PRACTITIONER 05/23/21 04/20/22 documented as of this encounter
--- OUTSIDE RECORDS SUMMARY | 2024-07-24 00:47 | XMS_ITS | Encounter Summary ---
Author Organization [facility] Address [address] [place] [address]. [place], [place] [address] [place] [address] Care Team Providers Care Buyer Liaison Name Role Phone Faith Galvez JUMPBASTING ARMHOLE BASTER Primary Care Provider Unavailabl e Encounter Details Date Type Department Care Team (Latest Contact Info) Description 02/25/2022 Travel Social History Tobacco Use Types Packs/Day [...] st Contact Info) Description 09/08/2024 10:10 AM DEFENSIVE SECONDARY COACH Office Visit [facility] Family Medicine - [place] [address] [place] [id number] Samantha Sanders MD [address] [place] [address] documented as of this encounter Visit Diagnoses Not on filedocumented in this encounter Additional Health Concerns Assessment Noted Time PHQ-9 Depression Total Score: 5 09/05/19 22 10:09 AM DEFENSIVE SECONDARY COACH documented as of this encounter Care Teams Buyer Liaison Relationship Specialty Start Date End Date Faith Galvez, JUMPBASTING ARMHOLE BASTER PCP - General NURSE PRACTITIONER 05/23/21 04/20/22 documented as of this encounter
--- OUTSIDE RECORDS SUMMARY | 2024-07-24 00:47 | XMS_ITS | Encounter Summary ---
Author Organization [facility] Address [address] [place] [address]. [place], [place] [id number] [place], [place] [id number] Care Team Providers Care Baseball Umpire For Little League Name Role Phone Faith Frye BULK MAIL TECHNICIAN Primary Care Provider Unavailabl e Reason for Visit * Reason Onset Date Comments Medication 07/08/2021 Encounter Details Date Type Department Care Team (Late st Contact Info) Description 07/08/2021 Telephone [facility] Family & Internal Medicine [address] [address] Faith Frye, BULK MAIL TECHNICIAN Medication Social History Tobacco Use Types Packs/Day Years Used Date Smoking Tobacco: Every Day Cigarettes 0.3 20 Smokeless Tobacco: Never Comments:provider to family and marriage counsellor Alcohol Use Standard Drinks/Week Comments Yes [...] COVID-19? No / Unsure 06/20/2021 11:44 AM HOTEL CASINO FLOORPERSON documented as of this encounter Progress Notes * Ninfa Chi LPN - 07/08/2021 2:19 PM CST appt made for 07/09/21 L CASINO FLOORPERSON * Radha Ortiz RN - 07/08/2021 1:23 PM CST Please schedule appt, thanks L CASINO FLOORPERSON * Faith Frye NP - 07/08/2021 1:16 PM CST She needs apt for this medication L CASINO FLOORPERSON * Radha Ortiz RN - 07/08/2021 12:40 PM CST Please advise L CASINO FLOORPERSON * Ninfa Chi LPN - 07/08/2021 11:44 AM CST Medication and strength: phentermine HCI 37.5 mg 06/06/21 [facility] Call back #: [phone] Last office visit at this office: Last visit with FAITH FRYE in FAMILY PRACTICE was on: 06/20/2021 in [facility] Future appointment scheduled: No future appointments. L CASINO FLOORPERSON documented in this encounter Plan of Treatment Upcoming Encounters Date Type Department Care Team (Late st Contact Info) Description 09/08/2024 10:10 AM HOTEL CASINO FLOORPERSON Office Visit [facility] Family Medicine - [place] [address] [place] [address] Samantha Sanders MD [address] [place] [address] documented as of this encounter Visit Diagnoses Not on filedocumented in this encounter Additional Health Concerns Assessment Noted Time PHQ-9 Depression Total Score: 2 05/23/20 21 8:38 AM CDT documented as of this encounter Care Teams Baseball Umpire [employer] Relationship Specialty Start Date End Date Faith Frye, BULK MAIL TECHNICIAN PCP - General NURSE PRACTITIONER 05/23/21 04/20/22 documented as of this encounter
--- OUTSIDE RECORDS SUMMARY | 2024-07-24 00:47 | XMS_ITS | Encounter Summary ---
Author Organization [facility] Address [address] [place] [address]. [place] [address] Care Team Providers Care Supervisor Component Assembler Name Role Phone Faith Galvez BOBTAILER Primary Care Provider Unavailabl e Reason for Visit * Reason Comments Sinus Problem feeling better but h aving chris issues with her rt ear. has questions about meds that her insurance will cover Encounter Details Date Type Department Care Team (Late st Contact Info) Description 06/20/2021 11:40 AM HEALTH ANALYST Office Visit [facility] Family & Internal Medicine [address] [address] Faith Galvez, DORINA Sinus Problem (feeling better but having chris issues with her rt ear. has questions about meds that her insurance will cover) Social History Tobacco Use Types Packs/Day Years Used Date Smoking Tobacco: Every Day Cigarettes 0.3 20 Smokeless Tobacco: Never Tobacco Cessation:Counseling Given: Yes Comments:provider to compliance counsel Alcohol Use Standard Drinks/Week Comments Yes [...] COVID-19? No / Unsure 06/20/2021 11:44 AM HEALTH ANALYST documented as of this encounter Last Filed Vital Signs Vital Sign Reading Time Taken Comments Blood Pressure 100/62 06/20/2021 11:49 AM HEALTH ANALYST Pulse 90 06/20/2021 11:49 AM HEALTH ANALYST Temperature 36.3 ??C (97.3 ??F) 06/20/2021 11:[address] Respiratory Rate 18 06/20/2021 11:49 AM HEALTH ANALYST Oxygen Saturation 98% 06/20/2021 11:49 AM HEALTH ANALYST Inhaled Oxygen Concentration - - Weight 73.1 kg (161 lb 3.2 oz) 06/20/2021 11:49 AM HEALTH ANALYST Height 154.9 cm (5' 1 ) 06/20/2021 11:49 AM HEALTH ANALYST Body Mass Index 30.46 06/20/2021 11:49 AM HEALTH ANALYST documented in this encounter Patient Instructions * Patient Instructions* Faith Galvez NP - 06/20/2021 11:40 AM HEALTH ANALYST Images from the original note were not included. Patient Education Patient Education Seasonal Allergies Discharge Instructions About this topic Seasonal allergies are also called allergic rhinitis or hay fever. You may have sneezing; a stuffy or runny nose; or itchy throat, ears, or eyes. You may feel very tired. Most often, this problem is caused by: ?? Pollens from trees, grasses, or weeds. ?? Mold spores that grow when the air is humid, wet, or damp. Some people can breathe in these things and have no problems. But when you have a seasonal allergy,your body acts as if the substance is harming you. Then you have symptoms. You may have symptoms only at some times of the year. If your symptoms last all year, they may be caused by: ?? Insects, such as dust mites or cock roaches. ?? Animals, such as cats or dogs. ?? Mold spores. What care is needed at home? ?? Ask your doctor what you need to do when you go home. Make sure you ask questions if you do not understand what the doctor says. ?? Rinse your nose with salt water to get rid of pollen inside of your nose. ?? Keep the windows closed and use air conditioning. ?? Shower before bed to rinse pollen from your hair and skin. ?? Wear a dust mask if you need to be outside. ?? Use dqdg-eoe-ssdhjkt medicines to help with your symptoms: ? A steroid nose spray can help with a stuffy nose. It can also help with drainage down the back ofyour throat. ? An antihistamine can help with itching, sneezing, or runny nose. ? An antihistamine eye drop can help with itchy eyes. ? A decongestant can help with a stuffy nose. Talk with your doctor or pharmacist about your other health problems before you use this kind of medicine. It may not be safe for people with high blood pressure. What follow-up care is needed? Your doctor may ask you to make visits to the office to check on your progress. Your doctor may askyou to see an sales operations specialist, or to have testing done to learn what is causing your allergies. Be sure to keep these visits. What drugs may be needed? The doctor may order drugs to treat the signs. Take your drugs as ordered. You may also take allergy shots if you have had allergy tests. Will physical activity be limited? You may have to limit your activity. If your health problem is caused by an allergy to pollens or molds, you may want to limit your time outdoors. Talk to your doctor about what activities are best for you. What problems could happen? ?? Your signs may not get better with your drugs ?? Asthma may get worse ?? Sinus infection What can be done to prevent this health problem? Try to avoid allergens. ?? If you are allergic to pollens, grasses, trees, etc: ? Stay inside in the morning when pollen counts are high. ? Avoid going outside when the trees, grasses, or weeds are blooming. ? Keep the windows of your house and car closed. ? Use an air conditioner. ?? If you are allergic to dust, molds, dust mites, pets, etc: ? Clean your air conditioner or furnace filters regularly. ? Cover pillows and mattresses with vinyl covers to lower your exposure to dust mites. ? Wash bedding weekly in very hot water. ? Use fewer dust-collecting items, such as curtains, bed skirts, carpeting, and stuffed animals, mainly in your bedroom. ? If you can't avoid having a furry pet, vacuum often and keep your pet out of bedrooms and other rooms with carpets. When do I need to call the doctor? ?? You are having so much trouble breathing that you can only say one or two words at a time. ?? You need to sit upright at all times to be able to breathe and or cannot lie down. ?? You have severe swelling of your tongue, lips, or mouth. ?? You have trouble breathing when talking or sitting still. ?? You have a fever of 100.4??F (38??C) or higher. ?? You have green or yellow mucus. Teach Back: Helping You Understand The Teach [...] I can tell you what may help make the air pillowcase cleaner. ?? I can tell you what may help ease my allergies. Where can I learn more? Food and Drug Administration https://www.fda.gov/ForConsumers/ConsumerUpdates/hci950108.htm NHS Choices https://www.nhs.uk/conditions/Hay-fever/ Last Reviewed Date 2021-01-07 Consumer Information Use and Disclaimer This information [...] right for you. Copyright Copyright ?? 2020 [employer]. and its affiliates and/or licensors. All rights reserved. Continue astepro daily Keep regular scheduled appointment TH ANALYST documented in this encounter Progress Notes * Faith Galvez NP - 06/20/2021 11:40 AM CST Reason for Visit: Sinus Problem (feeling better but having chris issues with her rt ear. has questions about meds that her insurance will cover) History of Present Illness: Pt. Here for sinus congestion that has improved but having difficult time hearing out of ear. ROS: Review of Systems HENT: Positive for congestion, sinus pressure and sinus pain. Respiratory: Negative. Cardiovascular: Negative. Allergic/Immunologic: Positive for environmental allergies. Medications: Current Outpatient Medications: ??? azelastine 0.1 [...] Never Used ??? Tobacco comment: provider to compliance counsel Vaping Use ??? Vaping Use: Never used [...] She is not ill-appearing. HENT: Head: Normocephalic. Right Ear: Tympanic membrane is retracted. Left Ear: Tympanic membrane is retracted. Nose: Congestion present. Mouth/Throat: Mucous membranes are moist. No posterior [...] and Affect: Mood normal. Behavior: Behavior normal. Filed Vitals: 06/20/21 1149 BP: 100/62 Pulse: 90 Resp: 18 Temp: 97.3 ??F (36.3 ??C) TempSrc: Temporal SpO2: 98% Weight: 73.1 kg (161 lb 3.2 oz) Height: 5' 1 (1.549 m) Assessment Encounter Diagnose(s) ICD-10-CM ICD-9-CM SNOMED CT(R) 1. Seasonal allergies J30.2 477.9 SEASONAL ALLERGY Recommendations and Plan: Continue astepro Keep scheduled follow up 1. Seasonal allergies Continue astepro FAITH GALVEZ NP 06/20/2021 12:04 PM TH ANALYST TH ANALYST documented in this encounter Plan of Treatment Upcoming Encounters Date Type Department Care Team (Late st Contact Info) Description 09/08/2024 10:10 AM HEALTH ANALYST Office Visit [facility] Family Medicine - [place] [address] [place] [address] Samantha Sanders MD [address] [place] [address] documented as of this encounter Visit Diagnoses Diagnosis Seasonal allergies- Primary Allergic rhinitis, cause unspecified Insomnia due to other mental disorder documented in this encounter Additional Health Concerns Assessment Noted Time PHQ-9 Depression Total Score: 2 05/23/20 21 8:38 AM CDT documented as of this encounter Care Teams Supervisor Component Assembler Relationship Specialty Start Date End Date Faith Galvez NP PCP - General NURSE PRACTITIONER 05/23/21 04/20/22 documented as of this encounter
--- OUTSIDE RECORDS SUMMARY | 2024-07-24 00:47 | XMS_ITS | Encounter Summary ---
Author Organization [facility] Address [address] [place] [address]. [place], [place] [id number] [place] [address] Care Team Providers Care Bobbin Handler Name Role Phone Faith Galvez NP Primary Care Provider Charley Solorzano MD Primary Care Provider [phone] Samantha Sanders MD Primary Care Provider + Encounter Details Date Type Department Care Team (Late st Contact Info) Description 05/27/2021 Fundrise Message Enc [facility] Family & Internal Medicine [address] [address] Rika, [facility] Provider PA Social History Tobacco Use Types Packs/Day Years Used Date Smoking Tobacco: Every Day Cigarettes 0.3 20 Smokeless Tobacco: Never Comments:provider to personal counselor Alcohol Use Standard Drinks/Week Comments Yes [...] st Contact Info) Description 09/08/2024 10:10 AM LEAVE MANAGER Office Visit [facility] Family Medicine - [place] [address] [place] [address] Samantha Sanders MD [address] [place] [address] documented as of this encounter Visit Diagnoses Not on filedocumented in this encounter Additional Health Concerns Infection Onset Date Last Indicated Resolved Time COVID-19 Rule Out 05/25/2023 05/25/2023 05/25/2023 10:11 AM LEAVE MANAGER COVID-19 Confirmed 05/25/2023 05/25/2023 12:32 AM LEAVE MANAGER Assessment Noted Time PHQ-9 Depression Total Score: 2 05/23/20 21 8:38 AM CDT documented as of this encounter Care Teams Bobbin Handler Relationship Specialty Start Date End Date Faith Galvez NP PCP - General NURSE PRACTITIONER 05/23/21 04/20/22 [place] [address] [facility]. [address] [place] [address] PCP - General FAMILY PRACTICE 04/21/22 03/03/24 Samantha Sanders MD [address] [place] [address] PCP - General FAMILY PRACTICE 03/07/24 documented as of this encounter
--- OUTSIDE RECORDS SUMMARY | 2024-07-24 00:47 | XMS_ITS | Encounter Summary ---
Author Organization [facility] Address [address] [place] [address]. [place], [place] [address] [place] [address] Care Team Providers Care Sociology Adjunct Instructor Name Role Phone Faith Galvez REVENUE ENFORCEMENT AGENT Primary Care Provider Unavailabl e Encounter Details Date Type Department Care Team (Latest Contact Info) Description 07/09/2021 Travel Social History Tobacco Use Types Packs/Day Years Used Date Smoking Tobacco: Every Day Cigarettes 0.3 20 Smokeless Tobacco: Never Comments:provider to cemetery counselor Alcohol Use Standard Drinks/Week Comments Yes [...] COVID-19? No / Unsure 07/09/2021 2:09 PM STATISTICAL CLERK documented as of this encounter Plan of Treatment Upcoming Encounters Date Type Department Care Team ( Contact Info) Description 09/08/2024 10:10 AM STATISTICAL CLERK Office Visit [facility] Family Medicine [facility] [address] [place] [address] Samantha Sanders MD [address] [place] [address] documented as of this encounter Visit Diagnoses Not on filedocumented in this encounter Additional Health Concerns Assessment Noted Time PHQ-9 Depression Total Score: 2 05/23/20 21 8:38 AM CDT documented as of this encounter Care Teams Sociology Adjunct Instructor Relationship Specialty Start Date End Date Faith Galvez, REVENUE ENFORCEMENT AGENT PCP - General NURSE PRACTITIONER 05/23/21 04/20/22 documented as of this encounter
--- OUTSIDE RECORDS SUMMARY | 2024-07-24 00:47 | XMS_ITS | Encounter Summary ---
Author Organization [facility] Address [address] [place] [address]. [place], [place] [address] [place] [address] Care Team Providers Care Pallet Assembler Name Role Phone Faith Frye QUICK SKETCH ARTIST Primary Care Provider Unavailabl e Reason for Referral * Imaging (Routine) - Closed Specialty Diagnoses / Procedures Referred By [place] Referred To Contact RADIOLOGY Diagnoses Goiter Procedures US THYROID Siddhartha Simon MD Referral ID Status Reason Start Date Expiration Date Visits Re quested Visits Authorized [id number] Closed 08/20/2021 09/17/2022 1 1 RMATION TECHNOLOGY TECHNICIAN Reason for Visit * Reason Comments Thyroid Problem goiter new patient r efer by Faith Troy * Consultation (Routine) - Closed Specialty Diagnoses / Procedures Referred By [place] Referred To Contact ENDOCRINOLOGY Diagnoses Goiter Faith Frye NP [facility] Diabetes and Endocrinology - [address] [place] [address] Phone: tel: fax: Referral ID Status Reason Start Date Expiration Date Visits Re quested Visits Authorized [id number] Closed 06/06/2021 07/07/2022 99 99 Encounter Details Date Type Department Care Team (Latest Contact Info) Description 08/20/2021 12:40 PM INFORMATION TECHNOLOGY TECHNICIAN Office Visit [facility] Diabetes and Endocrinology - [place] [address] [place], [place] [id number] Siddhartha Simon MD Thyroid Problem (goiter new patient refer by Faith Troy) Social History Tobacco Use Types Packs/Day Years Used Date Smoking Tobacco: Every Day Cigarettes 0.3 20 Smokeless Tobacco: Never Tobacco Cessation:Ready to Q uit: Yes; Counseling Given: Yes Comments:provider to student services counselor Alcohol Use Standard Drinks/Week Comments [...] have Coronavirus / COVID-19? No / Unsure 08/20/2021 12:43 PM INFORMATION TECHNOLOGY TECHNICIAN documented as of this encounter Last Filed Vital Signs Vital Sign Reading Time Taken Comments Blood Pressure 110/72 08/20/2021 12:51 PM INFORMATION TECHNOLOGY TECHNICIAN Pulse 82 08/20/2021 12:51 PM INFORMATION TECHNOLOGY TECHNICIAN Temperature 36.7 ??C (98.1 ??F) 08/20/2021 12:[address] Respiratory Rate 20 08/20/2021 12:51 PM INFORMATION TECHNOLOGY TECHNICIAN Oxygen Saturation 98% 08/20/2021 12:51 PM INFORMATION TECHNOLOGY TECHNICIAN Inhaled Oxygen Concentration - - Weight 73.5 kg (162 lb) 08/20/2021 12:51 PM INFORMATION TECHNOLOGY TECHNICIAN Height 154.9 cm (5' 1 ) 08/20/2021 12:51 PM INFORMATION TECHNOLOGY TECHNICIAN Body Mass Index 30.61 08/20/2021 12:51 PM INFORMATION TECHNOLOGY TECHNICIAN documented in this encounter Progress Notes * Siddhartha Simon MD - 08/20/2021 12:40 PM CST The reason for Visit: Thyroid Problem (goiter new patient refer by Faith Troy) PCP: FAITH FRYE NP Summary Karlie Ivory is a very pleasant 46-year-old female Known with Acne depression ADHD She was referred for a goiter History of Present Illness this visit Goiter Hx dates back to 01/2021: when she started noting the symptoms below . She denies having those symptoms before Family hx : negative Current medications of significance : MVI Current symptoms : Reports a neck fullness and Neck mass Also reports Weight gain,Fatigue and weakness + Edema Reports Compressive symptoms And Hoarseness of voice Denies Cold intolerance, Dyspnia on excertion , Cognitive dysfunction , On top, reports worsening of her acne and facial hair over the last year. Medications: Current Outpatient Medications: ??? azelastine 0.1 % nasal spray, 1 spray in each nostril daily (Patient taking differently: as needed. 1 spray in each nostril daily), Disp: 30 mL, Rfl: 0 ??? buPROPion 75 MG tablet, Take 0.5 tablets (37.5 mg total) by mouth daily., Disp: 15 tablet, Rfl:3 ??? Multiple Vitamin (MULTIVITAMIN ADULT OR), Take by mouth daily. , Disp: , Rfl: ??? phentermine 37.5 [...] mouth daily. , Disp: , Rfl: ??? citalopram 10 MG tablet, , Disp: , Rfl: ??? Eszopiclone 3 MG Tab, TAKE 1 TABLET BY MOUTH AT BEDTIME, Disp: 30 tablet, Rfl: 0 No Known Allergies History: Past Medical History: [...] other systems reviewed and are negative. Vitals: Filed Vitals: 08/20/21 1251 BP: 110/72 Pulse: 82 Resp: 20 Temp: 98.1 ??F (36.7 ??C) TempSrc: Temporal SpO2: 98% Weight: 73.5 kg (162 lb) Height: 5' 1 (1.549 m) Physical Exam: Physical Exam Vitals and nursing [...] CREATININE S/P/B Date Value Ref Range Status 02/15/2021 0.87 0.55 - 1.02 MG/DL Final LDL (CALCULATED) Date Value Ref Range Status 08/01/2020 184 (H) 0 - 99 mg/dL Final TRIGLYCERIDE Date Value Ref Range Status 08/01/2020 137 0 - 149 mg/dL Final HDL Date Value Ref Range Status 08/01/2020 44 >39 mg/dL Final AST Date Value Ref Range Status 02/15/2021 20 15 - 37 U/L Final ALT Date Value Ref Range Status 02/15/2021 20 14 - 55 U/L Final TSH Date Value Ref Range Status 02/15/2021 2.320 0.358 - 3.74 uIU/ML Final Comment: HIGH DOSES OF BIOTIN MAY INTERFERE WITH THIS TEST RESULT. CORRELATION TO CLINICAL HISTORY AND PRESENTATION RECOMMENDED. FREE T4 NOT INDICATED FREE T4 Date Value Ref Range Status 02/15/2021 0.99 0.76 - 1.46 NG/DL Final HGB Date Value Ref Range Status 02/15/2021 12.5 12.3 - 15.3 G/DL Final CT ABD+PEL W IV CON ONLY Narrative: PROCEDURE: CT ABD+PEL W CON 02/15/2021 6:59 PM HISTORY: RLQ abdominal pain, appendicitis suspected (Age >= 14y) . Impression: FINDINGS AND IMPRESSION: Radiation dose reduction technique was utilized. COMPARISON: No comparison. CONTRAST:75 cc of iodinated intravenous contrast FINDINGS: Multiple helically acquired CT images are obtained through the abdomen and pelvis following the intravenous administration of contrast. The lung bases are clear. The liver, gallbladder, spleen, pancreas, adrenals and kidneys are unremarkable. The urinary bladder is unremarkable. There is free fluid within the deep pelvis. The anterior abdominal wall and subcutaneous fat is normal. There are minimal degenerative changes of the lumbar spine. The appendix is not seen. There are metallic clips in the region of the distal cecum near the appendix. There is no mesenteric nor retroperitoneal lymphadenopathy. There is levoscoliosis of the thoracolumbar junction. The vascular structures are within normal limits. IMPRESSION: There is some nonspecific fluid within the deep pelvis. This is believed to be secondary to a gynecological process. Referred By: MORENA CAMPOS Interpreted By: Valente Valle, 02/15/2021 7:38 PM Assessment and Plan Diagnoses and all orders for this visit: Goiter Euthyroid per TFT 01/2021 However, symptomatic for neck fullness Could not feel mass on exam today Recommendations: Get labs below+ US Thyroid : address accordingly - THYROID STIM HORMONE, TSH; Future - THYROXINE, FREE (FT4); Future - FREE T3; Future - THYROID PEROXIDASE ANTIBODY; Future Acne vulgaris On aldactone Recommendations: Get labs below To investigate menopause vs Manchester syndrome as a reason for her symptoms - CORTISOL AM; Future - TESTOSTERONE, FREE & TOTAL; Future - ESTRADIOL; Future Siddhartha Simon Referring Provider: Faith Frye NP PCP: FAITH FRYE NP RMATION TECHNOLOGY TECHNICIAN * Susana Malloy LPN - 08/20/2021 12:40 PM CST DX: goiter JUAN: new patient Labs: 02/15/21 Thyroid US: 02/25/21 ordered but didn't do Concerns: -hormone check -hard to bend her neck forward -swells in front of neck at times -use to have hot flashes 6-7 months ago -is on phetermine and increased excersie and decreased how much she eats and still gaining weight RMATION TECHNOLOGY TECHNICIAN documented in this encounter Plan of Treatment Upcoming Encounters Date Type Department Care Team (Late st Contact Info) Description 09/08/2024 10:10 AM INFORMATION TECHNOLOGY TECHNICIAN Office Visit [facility] Family Medicine - [place] [address] [place] [id number] Samantha Sanders MD [address] [place] [address] documented as of this encounter Results * US THYROID (09/03/2021 3:19 PM INFORMATION TECHNOLOGY TECHNICIAN) Anatomical Region Laterality Modality Neck Ultrasound 09/03/2021 3:46 PM INFORMATION TECHNOLOGY TECHNICIAN Impressions 09/03/2021 3:48 PM INFORMATION TECHNOLOGY TECHNICIAN IMPRESSION: 1. RIGHT THYROID GLAND MEASURES 4.8 [...] 09/03/2021 3:46 PM Narrative 09/03/2021 3:48 PM INFORMATION TECHNOLOGY TECHNICIAN IMAGING STUDIES: US THYROID DATE: 09/03/2021 2:57 [...] Visit Diagnoses Diagnosis Goiter- Primary Goiter, unspecified Hirsutism Acne vulgaris Other acne Goiter Goiter, unspecified documented in this encounter Additional Health Concerns Assessment Noted Time PHQ-9 Depression Total Score: 0 08/20/19 22 12:49 PM INFORMATION TECHNOLOGY TECHNICIAN documented as of this encounter Care Teams Pallet Assembler Relationship Specialty Start Date End Date Faith Frye, DORINA PCP - General NURSE PRACTITIONER 05/23/21 04/20/22 documented as of this encounter
--- OUTSIDE RECORDS SUMMARY | 2024-07-24 00:47 | XMS_ITS | Encounter Summary ---
Author Organization [facility] Address [address] [place] [address]. [place], [place] [address] [place] [address] Care Team Providers Care Mis Director Name Role Phone Faith Galvez NP Primary Care Provider Charley Solorzano MD Primary Care Provider [phone] Encounter Details Date Type Department Care Team (Latest Contact Info) Description 02/25/2022 Scan HEALTH INFO SRVCS Scanned, Documents Social History Tobacco Use Types Packs/Day Years [...] ( Contact Info) Description 09/08/2024 10:10 AM ON SITE WASTEWATER SYSTEMS TECHNICIAN Office Visit [facility] Family Medicine - [place] [address] [place] [address] Samantha Sanders MD [address] [place] [address] documented as of this encounter Visit Diagnoses Not on filedocumented in this encounter Additional Health Concerns Assessment Noted Time PHQ-9 Depression Total Score: 5 09/05/19 22 10:09 AM ON SITE WASTEWATER SYSTEMS TECHNICIAN documented as of this encounter Care Teams Mis Director Relationship Specialty Start Date End Date Faith Galvez NP PCP - General NURSE PRACTITIONER 05/23/21 04/20/22 [place] [address] [address] [place] [address] PCP - General FAMILY PRACTICE 04/21/22 03/03/24 documented as of this encounter
--- OUTSIDE RECORDS SUMMARY | 2024-07-24 00:47 | XMS_ITS | Encounter Summary ---
Author Organization [facility] Address [address] [place] [address]. [place], [place] [address] [place] [address] Care Team Providers Care Advertising Editor Name Role Phone Faith Galvez CABLE BRAIDER Primary Care Provider Unavailabl e Reason for Referral * Consultation (Routine) - Closed Specialty Diagnoses / Procedures Referred By North t Referred To Contact ENDOCRINOLOGY Diagnoses Goiter Faith Galvez, CABLE BRAIDER [facility] Diabetes and Endocrinology [address] [address] Phone: tel: fax: Referral ID Status Reason Start Date Expiration Date Visits Re quested Visits Authorized [id number] Closed 06/06/2021 07/07/2022 99 99 ER AND SORTER LOAD AND UNLOAD Reason for Visit * Reason Comments Follow Up Medication f/u, Thyroid Tired alot, cant los e weight, and concerned that it may be her thyroid Ear Problem Having dufficulty he aring in right ear. been having this fir about 2 weeks, Pt thinks it might be from medications shes taking Encounter Details Date Type Department Care Team (Late st Contact Info) Description 06/06/2021 9:00 AM PICKER AND SORTER LOAD AND UNLOAD Office Visit [facility] Family & Internal Medicine [address] [place] [address] [address] Faith Galvez, CABLE BRAIDER Follow Up (Medication f/u, ); Thyroid (Tired alot, cant lose weight, and concerned that it may be her thyroid); Ear Problem (Having dufficulty hearing in right ear. been having this fir about 2 weeks, Pt thinks it might be from medications shes taking) Social History Tobacco Use Types Packs/Day Years Used Date Smoking Tobacco: Every Day Cigarettes 0.3 20 Smokeless Tobacco: Never Tobacco Cessation:Counseling Given: Yes Comments:provider to travel counselor Alcohol Use Standard Drinks/Week Comments [...] COVID-19? No / Unsure 06/05/2021 12:58 PM PICKER AND SORTER LOAD AND UNLOAD documented as of this encounter Last Filed Vital Signs Vital Sign Reading Time Taken Comments Blood Pressure 112/72 06/06/2021 9:13 AM PICKER AND SORTER LOAD AND UNLOAD Pulse 87 06/06/2021 9:13 AM PICKER AND SORTER LOAD AND UNLOAD Temperature 36.6 ??C (97.8 ??F) 06/06/2021 9:13 AM CS T Respiratory Rate 18 06/06/2021 9:13 AM PICKER AND SORTER LOAD AND UNLOAD Oxygen Saturation 98% 06/06/2021 9:13 AM PICKER AND SORTER LOAD AND UNLOAD Inhaled Oxygen Concentration - - Weight 72.4 kg (159 lb 9.6 oz) 06/06/2021 9:13 A M PICKER AND SORTER LOAD AND UNLOAD Height 154.9 cm (5' 1 ) 06/06/2021 9:13 AM PICKER AND SORTER LOAD AND UNLOAD Body Mass Index 30.16 06/06/2021 9:13 AM PICKER AND SORTER LOAD AND UNLOAD documented in this encounter Patient Instructions * Patient Instructions* Faith Galvez NP - 06/06/2021 9:00 AM PICKER AND SORTER LOAD AND UNLOAD Patient Education Patient Education ADHD Inattentive Type Discharge Instructions About this topic Attention deficit hyperactivity disorder is also called ADHD or ADD. People with ADHD have a problem with how the brain organizes and tells the body to complete tasks. There are 3 kinds of this condition. You may find it very hard to: ?? Sit still and must be moving. This is the hyperactive-impulsive kind of ADHD. ?? Focus or pay attention. This is the inattentive kind of ADHD. ?? Do any of these things. This is the combined hyperactive-impulsive and inattentive kind of ADHD. People who have the inattentive kind of ADHD may have a very hard time paying attention and have trouble following directions. They may seem disorganized and forget or lose things. This kind of ADHD may make someone seem like they are not listening or are easily distracted. While there is no cure for ADHD, you and your doctor can work on a plan that is best for you to treat the signs of ADHD. What care is needed at home? ?? Ask your doctor what you need to do when you go home. Make sure you ask questions if you do not understand what the doctor says. This way you will know what you need to do. ?? Try to get enough sleep at night. Most often adults need 7 to 8 hours each night and children need 8 to 10 hours each night. Rest during the day if you are tired. ?? Eat and sleep at the same times every day. ?? Schedule exercise throughout the week. ?? Have a plan for where to keep things in your home. Use checklists, things to help you remember, and alarms to help you remember when it is time do something. These can help you put things in the right place and manage your time. ?? Work on getting better at reading and taking notes. ?? Have a space that is just for work or homework so it will be easier to pay attention. This may be an office or a desk facing a wall. Try using headphones so you cannot hear the other noises. ?? Do one thing at a time. Keep a list of the next things you were planning to do or say. ?? Break large jobs or things you have to do into smaller jobs. This will make them easier to finish. Reward yourself along the way. ?? Set rules that are clear and easy to follow. ?? Look at where you are the strongest. Give rewards for good behavior, finished schoolwork, or fordoing good at work. ?? Use organizers for homework. Work with your child???s school to develop a plan. ?? Guide and support a child with this disorder. Share pleasant activities with your child. Give praise when your child does a good job. ?? Do not do too many things that might cause stress. What follow-up care is needed? ?? Your doctor may ask you to make visits to the office to check on your progress. Be sure to keep these visits. ?? Your doctor may send you to a special mental health doctor. This person will talk with you aboutthe problems you are having. Then, you can work together to find ways to help you manage them. ?? Your doctor may suggest you try talk therapy to help you live well with your ADHD. What drugs may be needed? The doctor may order drugs to: ?? Help lower your worry ?? Help you pay attention ?? Care for low mood Will physical activity be limited? Physical activity will help keep your mind and body in good shape. Talk with your doctor about the right amount of activity for you. What problems could happen? ?? Feeling badly about yourself ?? Raise your chance of hurting yourself ?? Not doing well in school or work ?? Trouble making friends or getting along well with others ?? Raise your chance to abuse alcohol or drugs What can be done to prevent this health problem? The cause of ADHD is not clear, but to lower the chance of your child having ADHD: ?? Do not drink beer, wine, or mixed drinks (alcohol) while you are . ?? Do not smoke or use illegal drugs while you are . ?? Keep your child away from things like harmful toxins and chemicals. When do I need to call the doctor? ?? Drugs are not working Teach Back: Helping You Understand The Teach [...] my condition. ?? I can tell you ways to help me pay attention. ?? I can tell you what I will do if I think my drugs are not working. Where can I learn more? [employer] http://familydoctor.org/familydoctor/en/diseases-conditions/qdaotzglc-iwnsfqy-oy wnpfkaebjna-kxifdyag-pjku.printerview.all.html HelpGuide.org http://www.helpguide.org/articles/add-adhd/ysvizofar-secwdhq-pkwktras-adhd-thuy ting-tips.htm KidsHealth http://kidshealth.org/parent/medical/learning/adhd.html [facility] http://www.[facility].nih.gov/health/topics/vewmemkjz-aejucdz-nvmvcozbrlvhl-disorder-a dhd/index.shtml Last Reviewed Date 2019-08-15 Consumer Information Use and Disclaimer This information [...] right for you. Copyright Copyright ?? 2020 [employer]. and its affiliates and/or licensors. All rights reserved. Follow up in 1 month for depression and new medication Stop Vyvance and citalopram and start Wellbutrin 75 mg 1/2 tab daily. Follow up for phentermine start Get urine tox and controlled substance agreement at next apt ER AND SORTER LOAD AND UNLOAD ER AND SORTER LOAD AND UNLOAD ER AND SORTER LOAD AND UNLOAD ER AND SORTER LOAD AND UNLOAD ER AND SORTER LOAD AND UNLOAD documented in this encounter Progress Notes * Faith Galvez NP - 06/06/2021 9:00 AM CST 2Reason for Visit: Follow Up (Medication f/u, ), Thyroid (Tired alot, cant lose weight, and concerned that it may be her thyroid), and Ear Problem (Having dufficulty hearing in right ear. been having this fir about 2 weeks, Pt thinks it might be from medications shes taking) History of Present Illness: Pt. Here for follow up of medications and states that she feels down, depressed and would like to talk about alternative medications. Reports that she is struggling with weight gain and would like todiscuss weight loss options. Pt would also like to see endocrinology for her thyroid. ROS: Review of Systems Constitutional: Positive for appetite change (weight gain). Negative for fatigue and fever. HENT: Negative. Eyes: Negative. Respiratory: Negative. Negative for cough and shortness of breath. Cardiovascular: Negative. Negative for chest pain. Genitourinary: Negative. Skin: Negative. Allergic/Immunologic: Negative. Negative for environmental allergies. Neurological: Negative. Hematological: Negative for adenopathy. Psychiatric/Behavioral: Negative for suicidal ideas (Denies). The patient is nervous/anxious. Depressed Medications: Current Outpatient Medications: ??? azelastine 0.1 % nasal spray, 1 spray in each nostril daily, Disp: 30 mL, Rfl: 0 ??? buPROPion 75 MG tablet, Take 0.5 tablets (37.5 mg total) by mouth daily., Disp: 15 tablet, Rfl:3 ??? Eszopiclone 3 MG Tab, TAKE 1 TABLET BY MOUTH AT BEDTIME, Disp: 30 tablet, Rfl: 0 ??? phentermine 37.5 MG tablet, Take 1 tablet (37.5 mg total) by mouth every morning before breakfast for 30 days., Disp: 30 tablet, Rfl: 0 ??? Vitamin D, Cholecalciferol, 25 MCG (1000 UT) Cap, , Disp: , Rfl: ??? Multiple Vitamin (MULTIVITAMIN ADULT OR), , Disp: , Rfl: No Known Allergies [...] Never Used ??? Tobacco comment: provider to travel counselor Vaping Use ??? Vaping Use: Never used Substance and Sexual Activity ??? Alcohol use: Yes Comment: 1 glass of wine a day ??? Drug use: No ??? Sexual activity: Not Currently control/protection: Surgical Other Topics Concern ??? Not on file Social History Narrative ??? Not on file Social Determinants of Health Financial Resource Strain: [...] time. Psychiatric: Mood and Affect: Mood is depressed. Affect is tearful. Behavior: Behavior normal. I spent 35 minutes today reviewing the patient's medical record, obtaining history, performing an exam, ordering medications, tests, and/or procedures, documenting in the medical record, referring and/or communicating with other health care providers, counseling and educating the patient/family/caregiver, reviewing and communicating test results and coordination of care. Filed Vitals: 06/06/21 0913 BP: 112/72 Pulse: 87 Resp: 18 Temp: 97.8 ??F (36.6 ??C) TempSrc: Temporal SpO2: 98% Weight: 72.4 kg (159 lb 9.6 oz) Height: 5' 1 (1.549 m) Assessment Encounter Diagnose(s) ICD-10-CM ICD-9-CM SNOMED CT(R) 1. Attention deficit hyperactivity disorder (ADHD), combined type F90.2 314.01 ATTENTION DEFICIT HYPERACTIVITY DISORDER, COMBINED TYPE 2. Depression with anxiety F41.8 300.4 MIXED ANXIETY AND DEPRESSIVE DISORDER buPROPion 75 MG tablet 3. Goiter E04.9 240.9 GOITER Ambulatory referral to Endocrinology (OTHER) 4. Obesity (BMI 30-39.9) E66.9 278.00 BODY MASS INDEX 30+ - OBESITY phentermine 37.5 MG tablet Recommendations and Plan: 1. Attention deficit hyperactivity disorder (ADHD), combined type Continue all current medications 2. Depression with anxiety Continue citalopram 3. Goiter Follow with endocrinology - Ambulatory referral to Endocrinology (OTHER) FAITH GALVEZ NP 06/06/2021 11:10 AM ER AND SORTER LOAD AND UNLOAD documented in this encounter Plan of Treatment Upcoming Encounters Date Type Department Care Team (Late st Contact Info) Description 09/08/2024 10:10 AM PICKER AND SORTER LOAD AND UNLOAD Office Visit [facility] Family Medicine - [place] [address] [place], [place] [id number] Samantha Sanders MD [address] [place] [address] Scheduled Referrals Name Type Priority Associated Diagnoses Orde r Schedule Ambulatory referral to Endocrinology (OTHER) Referral Routine Goiter Ordered: 06/06/2021 documented as of this encounter Visit Diagnoses Diagnosis Attention deficit hyperactivity disorder (ADHD), combined type- Primary Depression with anxiety Dysthymic disorder Goiter Goiter, unspecified Obesity (BMI 30-39.9) Obesity, unspecified documented in this encounter Additional Health Concerns Assessment Noted Time PHQ-9 Depression Total Score: 2 05/23/20 8:38 AM CDT documented as of this encounter Care Teams Advertising Editor Relationship Specialty Start Date End Date Faith Galvez NP PCP - General NURSE PRACTITIONER 05/23/21 04/20/22 documented as of this encounter
--- OUTSIDE RECORDS SUMMARY | 2024-07-24 00:47 | XMS_ITS | Encounter Summary ---
Author Organization [facility] Address [address] [place] [address]. [place], [place] [address] [place] [address] Care Team Providers Care Grievance And Appeals Coordinator Name Role Phone Faith Galvez NP Primary Care Provider Unavailabl e Reason for Visit * Reason Onset Date Comments Other 12/30/2021 Encounter Details Date Type Department Care Team (Late st Contact Info) Description 12/30/2021 Telephone [facility] Family & Internal Medicine [address] [address] Faith Galvez, MARKETING PERFORMANCE ANALYST Other Social History Tobacco Use Types Packs/Day [...] Progress Notes * Ninfa Chi LPN - 12/30/2021 3:13 PM CDT Pt wanted vyvanse refill without coming in for appt however she wanted a increase to 70 mg informedwould have to have appt V/U she has appt Said she may have to change PCP as [place] But to leave current appt with Leonor as is 01/08/22 documented in this encounter Plan of Treatment Upcoming Encounters Date Type Department Care Team (Late st Contact Info) Description 09/08/2024 10:10 AM INTEGRITY ANALYST Office Visit [facility] Family Medicine - [place] [address] [place] [address] Samantha Sanders MD [address] [place] [address] documented as of this encounter Visit Diagnoses Not on filedocumented in this encounter Additional Health Concerns Assessment Noted Time PHQ-9 Depression Total Score: 5 09/05/19 10:09 AM INTEGRITY ANALYST documented as of this encounter Care Teams Grievance And Appeals Coordinator Relationship Specialty Start Date End Date Faith Galvez, DORINA PCP - General NURSE PRACTITIONER 05/23/21 04/20/22 documented as of this encounter
--- OUTSIDE RECORDS SUMMARY | 2024-07-24 00:47 | XMS_ITS | Encounter Summary ---
Author Organization [facility] Address [address] [place] [address]. [place], [place] [address] [place] [address] Care Team Providers Care Maternal Fetal Physician Name Role Phone Faith Galvez TORPEDO MAN Primary Care Provider Unavailabl e Encounter Details Date Type Department Care Team (Latest Contact Info) Description 10/16/2021 Travel Social History Tobacco Use Types Packs/Day Years Used Date Smoking Tobacco: Every Day Cigarettes 0.3 20 Smokeless Tobacco: Never Comments:provider to assistant counsel Alcohol Use Standard Drinks/Week Comments Yes [...] suspected to have Coronavirus/COVID-19? No / Unsure 10/16/2021 2:47 PM CDT documented as of this encounter Plan of Treatment Upcoming Encounters Date Type Department Care Team ( Contact Info) Description 09/08/2024 10:10 AM OIL CHANGER Office Visit [facility] Family Medicine - [place] [address] [facility] [address] [place] [address] Samantha Sanders MD [address] [place] [address] documented as of this encounter Visit Diagnoses Not on filedocumented in this encounter Additional Health Concerns Assessment Noted Time PHQ-9 Depression Total Score: 5 09/05/19 22 10:09 AM OIL CHANGER documented as of this encounter Care Teams Maternal Fetal Physician Relationship Specialty Start Date End Date Faith Galvez, TORPEDO MAN PCP - General NURSE PRACTITIONER 05/23/21 04/20/22 documented as of this encounter
--- OUTSIDE RECORDS SUMMARY | 2024-07-24 00:47 | XMS_ITS | Encounter Summary ---
Author Organization [facility] Address [address] [place] [address]. [place] [address] Care Team Providers Care Health Education Specialist Name Role Phone Faith Frye MUSIC INDUSTRY INTERN Primary Care Provider Unavailabl e Reason for Visit * Reason Comments Follow Up 2 month follow up. M ed refill. Encounter Details Date Type Department Care Team (Late st Contact Info) Description 01/06/2022 9:40 AM CDT Office Visit [facility] Family & Internal Medicine [address] [phone] Faith Frye, MUSIC INDUSTRY INTERN Follow Up (2 month follow up. Med refill.) Social History Tobacco Use Types Packs/Day Years [...] Sign Reading Time Taken Comments Blood Pressure 110/60 01/06/2022 9:57 AM CDT Pulse 72 01/06/2022 9:57 AM CDT Temperature 36.1 ??C (97 ??F) 01/06/2022 9:57 AM CDT Respiratory Rate 18 01/06/2022 9:57 AM CDT Oxygen Saturation 98% 01/06/2022 9:57 AM CDT Inhaled Oxygen Concentration - - Weight 71.2 kg (157 lb) 01/06/2022 9:57 AM CDT Height 162.6 cm (5' 4 ) 01/06/2022 9:57 AM CDT Body Mass Index 26.95 01/06/2022 9:57 AM CDT documented in this encounter Patient Instructions * Patient Instructions* Faith Frye NP - 01/06/2022 10:14 AM CDT Continue Vyvance 60 mg daily Follow up in 2 months or sooner if needed * Attachments The following attachments cannot be sent through Care Everywhere. * ADHD Inattentive Type Discharge Instructions (British) documented in this encounter Progress Notes * Faith Frye NP - 01/06/2022 9:40 AM CDT Reason for Visit: Follow Up (2 month follow up. Med refill.) History of Present Illness: Patient here for follow up of ADD and refill of Vyvance. Denies any concerns and feels like the edication is working well. ROS: Review of Systems Constitutional: Negative. Negative for fatigue and fever. HENT: Negative. Eyes: Negative. Respiratory: Negative. Negative for cough and shortness of breath. Cardiovascular: Negative. Negative for chest pain. Endocrine: Negative. Genitourinary: Negative. Skin: Negative. Allergic/Immunologic: Negative. Negative for environmental allergies. Neurological: Negative. Psychiatric/Behavioral: Positive for decreased concentration (improved with medication). Negative for suicidal ideas (Denies). Medications: Current Outpatient Medications: ??? azelastine (AZELASTINE) 0.1 % nasal spray, 1 spray by Nasal route 2 (two) times daily. Use in each nostril as directed (Patient taking differently: 1 spray by Nasal route daily. Use in each nostril as directed), Disp: 30 mL, Rfl: 1 ??? buPROPion XL 150 MG 24 hr tablet, Take 150 mg by mouth daily., Disp: , Rfl: ??? estradiol 1 MG tablet, Take 1 mg by mouth daily., Disp: , Rfl: ??? hydrOXYzine 25 MG capsule, TAKE ONE CAPSULE BY MOUTH EVERY 4 HOURS NEEDED, Disp: , Rfl: ??? loratadine 10 MG tablet, Take 1 tablet (10 mg total) by mouth daily., Disp: 30 tablet, Rfl: 3 ??? Multiple Vitamin (MULTIVITAMIN ADULT OR), Take by mouth daily. , Disp: , Rfl: ??? naltrexone 50 MG tablet, Take 50 mg by mouth daily., Disp: , Rfl: ??? pravastatin 20 MG tablet, Take 1 tablet (20 mg total) by mouth nightly at bedtime., Disp: 30 tablet, Rfl: 3 ??? Vitamin D, Cholecalciferol, 25 MCG (1000 UT) Cap, Take by mouth daily. , Disp: , Rfl: ??? lisdexamfetamine (VYVANSE) 60 MG capsule, Take 1 capsule (60 mg total) by mouth every morning.,Disp: 30 capsule, Rfl: 0 ??? SPIRONOLACTONE 50 MG tablet, TAKE 1 TABLET(50 MG) BY MOUTH DAILY, Disp: 10 tablet, Rfl: 0 No Known Allergies Past Medical [...] She is not ill-appearing. HENT: Head: Normocephalic. Cardiovascular: Rate and Rhythm: Normal rate and regular rhythm. Pulmonary: Effort: Pulmonary effort is normal. Chest: Chest wall: No tenderness. Abdominal: Palpations: Abdomen is soft. Tenderness: There is no abdominal tenderness. Musculoskeletal: General: No swelling. Normal range of motion. Cervical back: Normal range of motion. Neurological: Mental Status: She is alert and oriented to person, place, and time. Psychiatric: Mood and Affect: Mood normal. Behavior: Behavior normal. I spent 25 minutes today reviewing the patient's medical record, obtaining history, performing an exam, ordering medications, tests, and/or procedures, documenting in the medical record, counseling and educating the patient/family/caregiver and coordination of care. Filed Vitals: 01/06/22 0957 BP: 110/60 Pulse: 72 Resp: 18 Temp: 97 ??F (36.1 ??C) TempSrc: Temporal SpO2: 98% Weight: 71.2 kg (157 lb) Height: 5' 4 (1.626 m) Assessment Encounter Diagnose(s) ICD-10-CM ICD-9-CM SNOMED CT(R) 1. Attention deficit hyperactivity disorder (ADHD), combined type F90.2 314.01 ATTENTION DEFICIT HYPERACTIVITY DISORDER, COMBINED TYPE lisdexamfetamine (VYVANSE) 60 MG capsule Recommendations and Plan: Continue Vyvance 60 mg daily Follow up in 2 months or sooner if needed 1. Attention deficit hyperactivity disorder (ADHD), combined type Continue vyvance - lisdexamfetamine (VYVANSE) 60 MG capsule; Take 1 capsule (60 mg total) by mouth every morning. Dispense: 30 capsule; Refill: 0 FAITH FRYE NP 01/06/2022 10:12 AM Cosigned by Anil Philip MD at 01/06/2022 11:47 AM CDT documented in this encounter Plan of Treatment Upcoming Encounters Date Type Department Care Team (Late st Contact Info) Description 09/08/2024 10:10 AM COLLOID MILL OPERATOR Office Visit [facility] Family Medicine - [place] [address] [facility] [address] [place] [address] Samantha Sanders MD [address] [place] [address] documented as of this encounter Visit Diagnoses Diagnosis Attention deficit hyperactivity disorder (ADHD), combined type documented in this encounter Additional Health Concerns Assessment Noted Time PHQ-9 Depression Total Score: 5 09/05/19 10:09 AM COLLOID MILL OPERATOR documented as of this encounter Care Teams Health Education Specialist Relationship Specialty Start Date End Date Faith Frye NP PCP - General NURSE PRACTITIONER 05/23/21 04/20/22 documented as of this encounter
--- OUTSIDE RECORDS SUMMARY | 2024-07-24 00:47 | XMS_ITS | Encounter Summary ---
Author Organization [facility] Address [address] [place] [address]. [place], [place] [address] [place] [address] Care Team Providers Care Cushion Former Name Role Phone Faith Galvez ACCOUNTS PAYABLE SUPERVISOR Primary Care Provider Unavailabl e Encounter Details Date Type Department Care Team (Latest Contact Info) Description 12/06/2021 Travel Social History Tobacco Use Types Packs/Day [...] ( Contact Info) Description 09/08/2024 10:10 AM COMMUNITY COORDINATOR Office Visit [facility] Family Medicine [place] [address] [facility] [address] [place] [address] Samantha Sanders MD [address] [place] [address] documented as of this encounter Visit Diagnoses Not on filedocumented in this encounter Additional Health Concerns Assessment Noted Time PHQ-9 Depression Total Score: 5 09/05/19 22 10:09 AM COMMUNITY COORDINATOR documented as of this encounter Care Teams Cushion Former Relationship Specialty Start Date End Date Faith Galvez, ACCOUNTS PAYABLE SUPERVISOR PCP - General NURSE PRACTITIONER 05/23/21 04/20/22 documented as of this encounter
--- OUTSIDE RECORDS SUMMARY | 2024-07-24 00:47 | XMS_ITS | Encounter Summary ---
Author Organization [facility] Address [address] [place] [address]. [place], [place] [id number] [place], [place] [id number] Care Team Providers Care Motion Picture Critic Name Role Phone Faith Galvez NP Primary Care Provider Unavailabl e Reason for Visit * Reason Onset Date Comments Follow Up Call 09/25/2021 Encounter Details Date Type Department Care Team (Late st Contact Info) Description 09/25/2021 Telephone [facility] Family & Internal Medicine [address] [address] Faith Galvez, DORINA Follow Up Call Social History Tobacco Use Types Packs/Day Years Used Date Smoking Tobacco: Every Day Cigarettes 0.3 20 Smokeless Tobacco: Never Comments:provider to day camp counselor Alcohol Use Standard Drinks/Week Comments Yes [...] Coronavirus/COVID-19? No / Unsure 09/25/2021 1:04 PM HEAD NECK SURGEON documented as of this encounter Progress Notes * Faith Galvez NP - 09/26/2021 1:32 PM CST Ordered 60 mg daily NECK SURGEON * Mecca Perry - 09/26/2021 1:08 PM CST Pt called stating the Vyvanse worked good she just wanting a higher dose she wants she wanting higher than 40 mg of it CXB# [phone] NECK SURGEON * Alanna Capone RN - 09/26/2021 11:11 AM CST Would you like to order something else? Or do I need to do a PA? NECK SURGEON * Faith Galvez NP - 09/26/2021 10:59 AM CST She was on vyvance and said it was not working NECK SURGEON * Alanna Capone RN - 09/25/2021 3:47 PM CST Please advise NECK SURGEON * Mecca Perry - 09/25/2021 2:13 PM CST Pt just seen matias carolyn she went to rx sweet pickle maker meds it would cost her over 100.00 dollars a month for this med concerta 54mg Pt stated she talked to you about vyvanse Please advise [phone] NECK SURGEON documented in this encounter Plan of Treatment Upcoming Encounters Date Type Department Care Team (Late st Contact Info) Description 09/08/2024 10:10 AM HEAD NECK SURGEON Office Visit [facility] Family Medicine - [place] [address] [place] [address] Samantha Sanders MD [address] [place] [address] documented as of this encounter Visit Diagnoses Not on filedocumented in this encounter Additional Health Concerns Assessment Noted Time PHQ-9 Depression Total Score: 5 09/05/19 22 10:09 AM HEAD NECK SURGEON documented as of this encounter Care Teams Motion Picture Critic Relationship Specialty Start Date End Date Faith Galvez, HEADLINE WRITER PCP - General NURSE PRACTITIONER 05/23/21 04/20/22 documented as of this encounter
--- OUTSIDE RECORDS SUMMARY | 2024-07-24 00:47 | XMS_ITS | Encounter Summary ---
Author Organization [facility] Address [address] [place] [address]. [place], [place] [id number] [place] [address] Care Team Providers Care Nuclear Medicine Technician Name Role Phone Faith Galvez SWEDGER Primary Care Provider Unavailabl e Encounter Details Date Type Department Care Team (Latest Contact Info) Description 09/05/2021 Travel Social History Tobacco Use Types Packs/Day Years Used Date Smoking Tobacco: Every Day Cigarettes 0.3 20 Smokeless Tobacco: Never Comments:provider to field counsel Alcohol Use Standard Drinks/Week Comments Yes [...] Coronavirus/COVID-19? No / Unsure 09/05/2021 9:59 AM FEATHERER documented as of this encounter Plan of Treatment Upcoming Encounters Date Type Department Care Team ( Contact Info) Description 09/08/2024 10:10 AM FEATHERER Office Visit [facility] Family [facility] [address] [place] [address] Samantha Sanders MD [address] [place] [address] documented as of this encounter Visit Diagnoses Not on filedocumented in this encounter Additional Health Concerns Assessment Noted Time PHQ-9 Depression Total Score: 5 09/05/19 22 10:09 AM FEATHERER documented as of this encounter Care Teams Nuclear Medicine Technician Relationship Specialty Start Date End Date Faith Galvez, SWEDGER PCP - General NURSE PRACTITIONER 05/23/21 04/20/22 documented as of this encounter
--- OUTSIDE RECORDS SUMMARY | 2024-07-24 00:47 | XMS_ITS | Encounter Summary ---
Author Organization [facility] Address [address] [place] [address]. [place], [place] [address] [place], [place] [id number] Care Team Providers Care Beet Worker Name Role Phone Faith Galvez DUST COLLECTOR ATTENDANT Primary Care Provider Unavailabl e Reason for Visit * Reason Onset Date Comments Medication Request 08/13/2021 Encounter Details Date Type Department Care Team (Late st Contact Info) Description 08/13/[address] [facility] Family & Internal Medicine [address] [address] Faith Galvez, DUST COLLECTOR ATTENDANT Medication Request Social History Tobacco Use Types Packs/Day Years Used Date Smoking Tobacco: Every Day Cigarettes 0.3 20 Smokeless Tobacco: Never Comments:provider to investment counselor Alcohol Use Standard Drinks/Week Comments Yes [...] COVID-19? No / Unsure 08/07/2021 6:55 AM NURSE ESTHETICIAN documented as of this encounter Progress Notes * Edna Nunez RN - 08/14/2021 11:36 AM CST Patient states she has been on multiple controlled medications for years and it was never a problem before Patient states she would discuss it with Faith on her appointment in August E ESTHETICIAN * Fatih Galvez NP - 08/14/2021 11:21 AM CST I will not prescribe multiple controlled medications at once. She needs to decide if she wants the phentermine or lunesta and I will prescribe the lunesta after the 30 days of phentermine is complete R * Edna Nunez RN - 08/14/2021 10:34 AM CST Called and spoke to patient-she states she has been taking half of the phentermine for a few monthsalready-she states she stopped taking Lunesta a few months ago due to cost and would like to try again and use a Good RX card. Please advise. E ESTHETICIAN * Faith Galvez NP - 08/13/2021 9:56 PM CST The phentermine can cause her to have difficult time sleeping. We can decrease it to a half tablet and that should help. Have her let me know E ESTHETICIAN * Edna Nunez RN - 08/13/2021 11:32 AM CST Please advise E ESTHETICIAN * Rosemary Raymond - 08/13/2021 11:27 AM CST Patient called and stated that she is having difficulty sleeping, she has been taking Melatonin, and this is not helping, she does not want to go with the Trazadone either. Want's to know what to do for the sleep problem. Please advise E ESTHETICIAN documented in this encounter Plan of Treatment Upcoming Encounters Date Type Department Care Team (Late st Contact Info) Description 09/08/2024 10:10 AM NURSE ESTHETICIAN Office Visit [facility] Family Medicine - [place] [address] [place], [place] [id number] Samantha Sanders MD [address] [place], [place] [id number] documented as of this encounter Visit Diagnoses Not on filedocumented in this encounter Additional Health Concerns Assessment Noted Time PHQ-9 Depression Total Score: 2 05/23/20 21 8:38 AM CDT documented as of this encounter Care Teams Beet Worker Relationship Specialty Start Date End Date Faith Galvez, DUST COLLECTOR ATTENDANT PCP - General NURSE PRACTITIONER 05/23/21 04/20/22 documented as of this encounter
--- OUTSIDE RECORDS SUMMARY | 2024-07-24 00:47 | XMS_ITS | Encounter Summary ---
Author Organization [facility] Address [address] [place] [address]. [place], [place] [address] [place] [address] Care Team Providers Care It Business Process Architect Name Role Phone Faith Galvez TECHNICAL DATA ANALYST Primary Care Provider Unavailabl e Encounter Details Date Type Department Care Team (Latest Contact Info) Description 11/07/2021 Travel Social History Tobacco Use Types Packs/Day Years Used Date Smoking Tobacco: Every Day Cigarettes 0.3 20 Smokeless Tobacco: Never Comments:provider to certified drug counselor Alcohol Use Standard Drinks/Week Comments Yes [...] ( Contact Info) Description 09/08/2024 10:10 AM EQUIP MAINT ENG Office Visit [facility] Family Medicine - [place] [address] [facility] [address] [place] [address] Samantha Sanders MD [address] [place] [address] documented as of this encounter Visit Diagnoses Not on filedocumented in this encounter Additional Health Concerns Assessment Noted Time PHQ-9 Depression Total Score: 5 09/05/19 22 10:09 AM EQUIP MAINT ENG documented as of this encounter Care Teams It Business Process Architect Relationship Specialty Start Date End Date Faith Galvez, TECHNICAL DATA ANALYST PCP - General NURSE PRACTITIONER 05/23/21 04/20/22 documented as of this encounter
--- OUTSIDE RECORDS SUMMARY | 2024-07-24 00:47 | XMS_ITS | Encounter Summary ---
Author Organization [facility] Address [address] [place] [address]. [place], [place] [address] [place] [address] Care Team Providers Care Preparation Supervisor Name Role Phone Faith Galvez NP Primary Care Provider hCarley Solorzano MD Primary Care Provider [phone] Samantha Sanders MD Primary Care Provider + Encounter Details Date Type Department Care Team (Late st Contact Info) Description 10/28/2021 [employer] Message Enc [facility] Family & Internal Medicine [address] [address] Faith Galvez NP Auto immune? Social History Tobacco Use Types Packs/Day Years Used Date Smoking Tobacco: Every Day Cigarettes 0.3 20 Smokeless Tobacco: Never Comments:provider to chromosomal disorders counselor Alcohol Use Standard Drinks/Week Comments Yes [...] st Contact Info) Description 09/08/2024 10:10 AM SANFORIZING MACHINE OPERATOR Office Visit [facility] Family Medicine - [place] [address] [place] [address] Samantha Sanders MD [address] [place] [id number] documented as of this encounter Visit Diagnoses Not on filedocumented in this encounter Additional Health Concerns Infection Onset Date Last Indicated Resolved Time COVID-19 Rule Out 05/25/2023 05/25/2023 05/25/2023 10:11 AM SANFORIZING MACHINE OPERATOR COVID-19 Confirmed 05/25/2023 05/25/2023 12:32 AM SANFORIZING MACHINE OPERATOR Assessment Noted Time PHQ-9 Depression Total Score: 5 09/05/19 10:09 AM SANFORIZING MACHINE OPERATOR documented as of this encounter Care Teams Preparation Supervisor Relationship Specialty Start Date End Date Faith Galvez NP PCP - General NURSE PRACTITIONER 05/23/21 04/20/22 [place] [address] [facility] [address] [place] [address] PCP - General FAMILY PRACTICE 04/21/22 03/03/24 Samantha Sanders MD [address] [place] [address] PCP - General FAMILY PRACTICE 03/07/24 documented as of this encounter
--- OUTSIDE RECORDS SUMMARY | 2024-07-24 00:47 | XMS_ITS | Encounter Summary ---
Author Organization [facility] Address [address] [place] [address]. [place], [place] [address] [place] [address] Care Team Providers Care Afternoon Babysitter Name Role Phone Faith Galvez CONDUCTOR/BRAKEMAN Primary Care Provider Unavailabl e Encounter Details Date Type Department Care Team (Latest Contact Info) Description 08/20/2021 Travel Social History Tobacco Use Types Packs/Day Years Used Date Smoking Tobacco: Every Day Cigarettes 0.3 20 Smokeless Tobacco: Never Comments:provider to program counselor Alcohol Use Standard Drinks/Week Comments Yes [...] COVID-19? No / Unsure 08/20/2021 12:43 PM UNIVERSITY PARTNERSHIP REP documented as of this encounter Plan of Treatment Upcoming Encounters Date Type Department Care Team ( Contact Info) Description 09/08/2024 10:10 AM UNIVERSITY PARTNERSHIP REP Office Visit [facility] Family Medicine [facility] [address] [facility] [address] [address] Samantha Sanders MD [address] [place] [address] documented as of this encounter Visit Diagnoses Not on filedocumented in this encounter Additional Health Concerns Assessment Noted Time PHQ-9 Depression Total Score: 0 08/20/19 12:49 PM UNIVERSITY PARTNERSHIP REP documented as of this encounter Care Teams Afternoon Babysitter Relationship Specialty Start Date End Date Faith Galvez, CONDUCTOR/BRAKEMAN PCP - General NURSE PRACTITIONER 05/23/21 04/20/22 documented as of this encounter
--- OUTSIDE RECORDS SUMMARY | 2024-07-24 00:47 | XMS_ITS | Encounter Summary ---
Author Organization [facility] Address [address] [place] [address]. [place], [place] [address] [place] [address] Care Team Providers Care Event Decorator Name Role Phone Faith Galvez DECKHAND MAINTENANCE Primary Care Provider Unavailabl e Reason for Visit * Reason Comments Follow Up 1 month f/u. Cough, congestion Encounter Details Date Type Department Care Team (Late st Contact Info) Description 11/08/2021 7:40 AM CDT Office Visit [facility] Family & Internal Medicine [address] [address] Faith Galvez, DECKHAND MAINTENANCE Follow Up (1 month f/u. Cough, congestion) Social History Tobacco Use Types Packs/Day Years Used Date Smoking Tobacco: Every Day Cigarettes 0.3 20 Smokeless Tobacco: Never Tobacco Cessation:Counseling Given: Yes Comments:provider to behavioral school counselors Alcohol Use Standard Drinks/Week Comments Yes 0 [...] Sign Reading Time Taken Comments Blood Pressure 112/64 11/08/2021 7:53 AM CDT Pulse 92 11/08/2021 7:53 AM CDT Temperature 35.7 ??C (96.3 ??F) 11/08/2021 7:53 AM CD T Respiratory Rate 20 11/08/2021 7:53 AM CDT Oxygen Saturation 98% 11/08/2021 7:53 AM CDT Inhaled Oxygen Concentration - - Weight 73.4 kg (161 lb 12.8 oz) 11/08/2021 7:53 AM CDT Height 162.6 cm (5' 4 ) 11/08/2021 7:53 AM CDT Body Mass Index 27.77 11/08/2021 7:53 AM CDT documented in this encounter Patient Instructions * Patient Instructions* Faith Galvez NP - 11/08/2021 7:40 AM CDT Images from the original note were not [...] you need to be outside. ?? Use [id number] medicines to help with your symptoms: ? [...] Your doctor may askyou to see an computer support specialist instructor, or to have testing done to learn [...] you what may help make the air fur cleaner. ?? I can tell you what may help ease my allergies. Where can I learn more? Food and Drug Administration https://www.fda.gov/ForConsumers/ConsumerUpdates/pij098452.htm NHS Choices https://www.nhs.uk/conditions/Hay-fever/ Last Reviewed Date 2021-01-07 [...] or approved for treating a specific patient. [employer] and its affiliates disclaim any warranty or liability relating to this information or the use thereof. The use of this information is governed by the Terms of Use, available at https://www.[employer].com/en/solutions/lexicomp/about/gerri Copyright Copyright ?? 2020 [employer]. and its affiliates and/or licensors. All rights reserved. Reorder astepro daily for allergies Start vyvance Follow up in 2 months documented in this encounter Progress Notes * Faith Galvez NP - 11/08/2021 7:40 AM CDT Reason for Visit: Follow Up (1 month f/u. Cough, congestion) History of Present Illness: Patient here today for follow up of cough and congestion. Reports that she has a rash on bilateral arms after being in sauna that have since resolved ROS: Review of Systems Constitutional: Negative. Negative for fatigue and fever. HENT: Positive for congestion and rhinorrhea. Respiratory: Positive for cough. Negative for shortness of breath. Cardiovascular: Negative. Negative for chest pain. Allergic/Immunologic: Positive for environmental allergies. Psychiatric/Behavioral: Positive for decreased concentration. Negative for suicidal ideas (Denies). Medications: Current Outpatient Medications: ??? azelastine (AZELASTINE) 0.1 % nasal spray, 1 spray by Nasal route 2 (two) times daily. Use in each nostril as directed, Disp: 30 mL, Rfl: 1 ??? azelastine 0.1 % nasal spray, 1 spray in each nostril daily (Patient taking differently: as needed. 1 spray in each nostril daily), Disp: 30 mL, Rfl: 0 ??? buPROPion 75 MG tablet, Take 0.5 tablets (37.5 mg total) by mouth daily., Disp: 15 tablet, Rfl:3 ??? lisdexamfetamine (VYVANSE) 60 MG capsule, Take 1 capsule (60 mg total) by mouth every morning.,Disp: 30 capsule, Rfl: 0 ??? loratadine 10 MG tablet, Take 1 [...] Never Used ??? Tobacco comment: provider to behavioral school counselors Vaping Use ??? Vaping Use: Never used [...] is not ill-appearing. HENT: Head: Normocephalic. Nose: Congestion present. Cardiovascular: Rate and Rhythm: Normal rate and regular rhythm. Pulmonary: Effort: Pulmonary effort is normal. Chest: Chest wall: No tenderness. Abdominal: Palpations: Abdomen is soft. Tenderness: There is no abdominal tenderness. Skin: General: Skin is warm. Neurological: Mental Status: She is alert and oriented to person, place, and time. Psychiatric: Mood and Affect: Mood normal. Behavior: Behavior normal. I spent 30 minutes today reviewing the patient's medical record, obtaining history, performing an exam, ordering medications, tests, and/or procedures, documenting in the medical record, counseling and educating the patient/family/caregiver and coordination of care. Filed Vitals: 11/08/21 0753 BP: 112/64 Pulse: 92 Resp: 20 Temp: 96.3 ??F (35.7 ??C) TempSrc: Temporal SpO2: 98% Weight: 73.4 kg (161 lb 12.8 oz) Height: 5' 4 (1.626 m) Assessment Encounter Diagnose(s) ICD-10-CM ICD-9-CM SNOMED CT(R) 1. Seasonal allergies J30.2 477.9 SEASONAL ALLERGY azelastine (AZELASTINE) 0.1 % nasal spray lisdexamfetamine (VYVANSE) 60 MG capsule 2. Attention deficit hyperactivity disorder (ADHD), combined type F90.2 314.01 ATTENTION DEFICIT HYPERACTIVITY DISORDER, COMBINED TYPE Recommendations and Plan: Reorder astepro daily for allergies Follow up in 2 months 1. Seasonal allergies Patient with allergic rhinitis. Discussed the stepwise treatment of allergic rhinitis along with oral and topical therapy. Discussed and demonstrated appropriate technique for use of nasal sprays. RTC PRN. Discussed using Sinus Rinse as well. Patient agrees with treatment plan. - azelastine (AZELASTINE) 0.1 % nasal spray; 1 spray by Nasal route 2 (two) times daily. Use in each nostril as directed Dispense: 30 mL; Refill: 1 2. Attention deficit hyperactivity disorder (ADHD), combined type D/c adderall start vyvance - lisdexamfetamine (VYVANSE) 60 MG capsule; Take 1 capsule (60 mg total) by mouth every morning. Dispense: 30 capsule; Refill: 0 FAITH GALVEZ NP 11/08/2021 8:24 AM documented in this encounter Plan of Treatment Upcoming Encounters Date Type Department Care Team (Late st Contact Info) Description 09/08/2024 10:10 AM SOLUTION PROFESSIONAL Office Visit [facility] Family Medicine - [place] [address] [facility] [address] [place] [id number] Samantha Sanders MD [address] [place] [address] documented as of this encounter Visit Diagnoses Diagnosis Seasonal allergies- Primary Allergic rhinitis, cause unspecified Attention deficit hyperactivity disorder (ADHD), combined type documented in this encounter Additional Health Concerns Assessment Noted Time PHQ-9 Depression Total Score: 5 09/05/19 22 10:09 AM SOLUTION PROFESSIONAL documented as of this encounter Care Teams Event Decorator Relationship Specialty Start Date End Date Faith Galvez NP PCP - General NURSE PRACTITIONER 05/23/21 04/20/22 documented as of this encounter
--- OUTSIDE RECORDS SUMMARY | 2024-07-24 00:47 | XMS_ITS | Encounter Summary ---
Author Organization [facility] Address [address] [place] [address]. [place], [place] [id number] [place], [place] [id number] Care Team Providers Care Dispensing Optician Apprentice Name Role Phone Faith Galvez NP Primary Care Provider Unavailabl e Reason for Visit * Reason Comments Follow Up med refill Encounter Details Date Type Department Care Team (Late st Contact Info) Description 12/06/2021 7:00 AM CDT Office Visit [facility] Family & Internal Medicine [address] [address] Hussein Philip MD [address] [place] [id number] Follow Up (med refill) Social History Tobacco Use Types Packs/Day Years [...] In the last 10 days, have debora dozier been in contact with someone who was confirmed or suspected to have Coronavirus/COVID-19? No / Unsure 12/06/2021 7:09 AM CDT documented as of this encounter Last Filed Vital Signs Vital Sign Reading Time Taken Comments Blood Pressure 126/78 12/06/2021 7:15 AM CDT Pulse 63 12/06/2021 7:15 AM CDT Temperature 36.4 ??C (97.6 ??F) 12/06/2021 7:15 AM CD T Respiratory Rate 16 12/06/2021 7:15 AM CDT Oxygen Saturation 98% 12/06/2021 7:15 AM CDT Inhaled Oxygen Concentration - - Weight 73.6 kg (162 lb 3.2 oz) 12/06/2021 7:15 A M CDT Height 162.6 cm (5' 4 ) 12/06/2021 7:15 AM CDT Body Mass Index 27.84 12/06/2021 7:15 AM CDT documented in this encounter Patient Instructions * Patient Instructions* Hussein Philip MD - 12/06/2021 7:00 AM CDT I will refill her vvyance for now and needs to follow up with psychiatry, discussed at 46 risk of stimulants and may benefit from a non stimulant like tenex, or strattera documented in this encounter Progress Notes * Hussein Philip MD - 12/06/2021 7:00 AM CDT Images from the original note were not included. Office Progress Note Reason for Visit: Follow Up (med refill) History of Present Illness: HPI Pt with a history of ADD on vyvance and request for refill has history of hyperlipidemia, anxiety and depression. Was diagnosed by psychiatry and denies substance abuse, palpitations, wt loss, chest pain, does have insomnia and takes hydroxyzine ROS: Review of Systems Constitutional: Negative for malaise/fatigue and weight loss. HENT: Negative for sore throat. Eyes: Negative for blurred vision and double vision. Respiratory: Negative for shortness of breath. Cardiovascular: Negative for chest pain, palpitations and claudication. Gastrointestinal: Negative for nausea. Skin: Negative for rash. Neurological: Negative for dizziness, tingling, sensory change and headaches. Endo/Heme/Allergies: Positive for environmental allergies. Psychiatric/Behavioral: Negative for depression. The patient is nervous/anxious and has insomnia. Medications: Current Outpatient Medications: ??? azelastine (AZELASTINE) 0.1 % nasal spray, 1 spray by Nasal route 2 (two) times daily. Use in each nostril as directed (Patient taking differently: 1 spray by Nasal route daily. Use in each nostril as directed), Disp: 30 mL, Rfl: 1 ??? buPROPion 75 MG tablet, Take 0.5 tablets (37.5 mg total) by mouth daily. (Patient taking differently: Take 37.5 mg by mouth daily. Every other day), Disp: 15 tablet, Rfl: 3 ??? busPIRone 7.5 MG tablet, Take 7.5 mg by mouth 2 (two) times daily., Disp: , Rfl: ??? hydrOXYzine 25 MG capsule, TAKE ONE CAPSULE BY MOUTH EVERY 4 HOURS NEEDED, Disp: , Rfl: ??? lisdexamfetamine (VYVANSE) 60 [...] bedtime., Disp: 30 tablet, Rfl: 3 ??? buPROPion XL 150 MG 24 hr tablet, Take 150 mg by mouth daily., Disp: , Rfl: ??? SPIRONOLACTONE 50 MG tablet, TAKE 1 TABLET(50 MG) BY MOUTH DAILY, Disp: 10 tablet, Rfl: 0 ??? Vitamin D, Cholecalciferol, 25 MCG (1000 UT) Cap, Take by mouth daily. , Disp: , Rfl: Allergies: No Known Allergies Medical History: Past Medical History: Diagnosis Date ??? ADHD (attention deficit hyperactivity disorder) ??? Allergic rhinitis 05/10/2018 ??? Anxiety ??? Bowel obstruction (CMS/HCC) ??? Ulcerative (chronic) enterocolitis, other complication (CMS/HCC) ??? Ulcerative colitis (CMS/HCC) 04/15/2018 ??? Ulcerative colitis (CMS/HCC) Surgical History: Past Surgical History: Procedure Laterality Date ??? APPENDECTOMY ??? APPENDECTOMY ??? BREAST LUMPECTOMY Left ??? HERNIA REPAIR ??? HYSTERECTOMY Social History: Social History Tobacco Use ??? Smoking status: Current Every Day Smoker Packs/day: 0.25 Years: 20.00 Pack years: 5.00 ??? Smokeless tobacco: Never Used ??? Tobacco comment: cut back alot Vaping Use ??? Vaping Use: Never used Substance Use Topics ??? Alcohol use: Yes Comment: 1 glass of wine a day ??? Drug use: No Family History: Family History Problem Relation Name Age of Onset ??? Heart Mother ??? Heart Father ??? Heart Paternal Grandfather ??? Aneurysm Paternal Grandfather ??? Cancer Paternal Grandfather colon PE: Physical Exam Vitals and nursing note reviewed. Constitutional: General: She is not in acute distress. Appearance: Normal appearance. Eyes: General: No scleral icterus. Conjunctiva/sclera: Conjunctivae normal. Pupils: Pupils are equal, round, and reactive to light. Neck: Vascular: No carotid bruit. Cardiovascular: Rate and Rhythm: Normal rate and regular rhythm. Pulses: Normal pulses. Heart sounds: Normal heart sounds. Pulmonary: Effort: Pulmonary effort is normal. Breath sounds: No wheezing or rales. Musculoskeletal: General: No swelling. Cervical back: Normal range of motion. Skin: General: Skin is warm. Coloration: Skin is not pale. Neurological: General: No focal deficit present. Mental Status: She is alert and oriented to person, place, and time. Psychiatric: Mood and Affect: Mood normal. Behavior: Behavior normal. Filed Vitals: 12/06/21 0715 BP: 126/78 Pulse: 63 Resp: 16 Temp: 97.6 ??F (36.4 ??C) TempSrc: Temporal SpO2: 98% Weight: 73.6 kg (162 lb 3.2 oz) Height: 5' 4 (1.626 m) Body mass index is 27.84 kg/m??. Diagnoses/Impression: 1. Attention deficit hyperactivity disorder (ADHD), combined type lisdexamfetamine (VYVANSE) 60 MG capsule Recommendations and Plan: Patient Instructions I will refill her vvyance for now and needs to follow up with psychiatry, discussed at 46 risk of stimulants and may benefit from a non stimulant like tenex, or strattera PCP: HUSSEIN PHILIP MD 12/07/2021 documented in this encounter Plan of Treatment Upcoming Encounters Date Type Department Care Team (Late st Contact Info) Description 09/08/2024 10:10 AM LEGAL SERVICES PROFESSIONAL Office Visit [facility] Family Medicine - [place] [address] [place], [place] [phone] Samantha Sanders MD [address] [place], [place] [phone] documented as of this encounter Visit Diagnoses Diagnosis Attention deficit hyperactivity disorder (ADHD), combined type documented in this encounter Additional Health Concerns Assessment Noted Time PHQ-9 Depression Total Score: 5 09/05/19 10:09 AM LEGAL SERVICES PROFESSIONAL documented as of this encounter Care Teams Dispensing Optician Apprentice Relationship Specialty Start Date End Date Faith Galvez, DORINA PCP - General NURSE PRACTITIONER 05/23/21 04/20/22 documented as of this encounter
--- OUTSIDE RECORDS SUMMARY | 2024-07-24 00:47 | XMS_ITS | Encounter Summary ---
Author Organization [facility] Address [address] [place] [address]. [place], [place] [id number] [place] [address] Care Team Providers Care Telecommunications Project Manager Name Role Phone Faith Galvez NP Primary Care Provider Charley Solorzano MD Primary Care Provider [phone] Samantha Sanders MD Primary Care Provider + Encounter Details Date Type Department Care Team (Late st Contact Info) Description 05/23/2021 [employer] Message Enc [facility] Family & Internal Medicine [address] [address] Faith Galvez, DORINA Medication Questions Social History Tobacco Use Types Packs/Day Years Used Date Smoking Tobacco: Every Day Cigarettes 0.3 20 Smokeless Tobacco: Never Comments:provider to credit support counselor Alcohol Use Standard Drinks/Week Comments [...] st Contact Info) Description 09/08/2024 10:10 AM INPATIENT NURSING AIDE Office Visit [facility] Family Medicine - [place] [address] [place] [address] Samantha Sanders MD [address] [place] [address] documented as of this encounter Visit Diagnoses Not on filedocumented in this encounter Additional Health Concerns Infection Onset Date Last Indicated Resolved Time COVID-19 Rule Out 05/25/2023 05/25/2023 05/25/2023 10:11 AM INPATIENT NURSING AIDE COVID-19 Confirmed 05/25/2023 05/25/2023 12:32 AM INPATIENT NURSING AIDE Assessment Noted Time PHQ-9 Depression Total Score: 2 05/23/20 8:38 AM CDT documented as of this encounter Care Teams Telecommunications Project Manager Relationship Specialty Start Date End Date Faith Galvez NP PCP - General NURSE PRACTITIONER 05/23/21 04/20/22 [place] [address] [facility] [place] [place] [id number] PCP - General FAMILY PRACTICE 04/21/22 03/03/24 Samantha Sanders MD [address] [place] [address] PCP - General FAMILY PRACTICE 03/07/24 documented as of this encounter
--- OUTSIDE RECORDS SUMMARY | 2024-07-24 00:47 | XMS_ITS | Encounter Summary ---
Author Organization [facility] Address [address] [place] [address]. [place], [place] [id number] [place], [place] [id number] Care Team Providers Care Water Main Installer Helper Name Role Phone Faith Frye SWEATBAND SEPARATOR Primary Care Provider Unavailabl e Reason for Visit * Reason Comments Follow Up Discuss medications Encounter Details Date Type Department Care Team (Late st Contact Info) Description 10/16/2021 2:40 PM CDT Office Visit [facility] Family & Internal Medicine [address] [address] Faith Frye, DORINA Follow Up (Discuss medications) Social History Tobacco Use Types Packs/Day Years Used Date Smoking Tobacco: Every Day Cigarettes 0.3 20 Smokeless Tobacco: Never Tobacco Cessation:Counseling Given: Yes Comments:provider to certified credit counselor Alcohol Use Standard Drinks/Week Comments Yes [...] Sign Reading Time Taken Comments Blood Pressure 110/68 10/16/2021 2:56 PM CDT Pulse 77 10/16/2021 2:56 PM CDT Temperature 36.4 ??C (97.5 ??F) 10/16/2021 2:56 PM CD T Respiratory Rate 20 10/16/2021 2:56 PM CDT Oxygen Saturation 99% 10/16/2021 2:56 PM CDT Inhaled Oxygen Concentration - - Weight 74.1 kg (163 lb 6.4 oz) 10/16/2021 2:56 P M CDT Height 162.6 cm (5' 4 ) 10/16/2021 2:56 PM CDT Body Mass Index 28.05 10/16/2021 2:56 PM CDT documented in this encounter Patient Instructions * Patient Instructions* Faith Frye NP - 10/16/2021 2:40 PM CDT Patient Education Patient Education ADHD Inattentive Type [...] not working. Where can I learn more? [employer] http://familydoctor.org/familydoctor/en/diseases-conditions/llvsnnuus-mknejvc-fh puwcjoyufog-rnawosfs-oktq.printerview.all.html HelpGuide.org http://www.helpguide.org/articles/add-adhd/ifctdrlkg-uwbosgu-rsxsqmyb-adhd-paren ting-tips.htm KidsHealth http://kidshealth.org/parent/medical/learning/adhd.html National Clayton of Mental Health http://www.nimh.nih.gov/health/topics/tnuzigbrv-xvpqgjz-dokfkkxviakzr-disorder-a dhd/index.shtml Last Reviewed Date 2019-08-15 Consumer Information Use and Disclaimer This generalized [...] or approved for treating a specific patient. [employer] and its affiliates disclaim any warranty or liability relating to this information or the use thereof. The use of this information is governed by the Terms of Use, available at https://www.[employer]ification Solutions/en/solutions/lexicomp/about/gerri Copyright Copyright ?? 2020 [employer] and its affiliates and/or licensors. All rights reserved. Start Adderall 30 mg Daily Start loratadine 10 mg daily for seasonal allergies Follow up in 1 month or sooner if needed documented in this encounter Progress Notes * Faith Frye NP - 10/16/2021 2:40 PM CDT Reason for Visit: Follow Up (Discuss medications) History of Present Illness: Patient here for concerns of the Vyvance and reports that it started making her nauseated and constipation. Reports that she did better on Adderall in the past and would like to try it again. ROS: Review of Systems Constitutional: Positive for fatigue. Negative for fever. HENT: Negative. Respiratory: Negative. Negative for cough and shortness of breath. Cardiovascular: Negative. Negative for chest pain. Gastrointestinal: Positive for constipation. Negative for abdominal pain. Genitourinary: Negative. Musculoskeletal: Negative. Negative for back pain. Skin: Positive for rash (resolved). Allergic/Immunologic: Positive for environmental allergies. Neurological: Negative. Hematological: Negative for adenopathy. Psychiatric/Behavioral: Positive for decreased concentration. Negative for suicidal ideas (Denies). Medications: Current Outpatient Medications: ??? amphetamine-dextroamphetamine (ADDERALL) [...] Never Used ??? Tobacco comment: provider to certified credit counselor Vaping Use ??? Vaping Use: Never [...] Left Ear: Tympanic membrane is retracted. Nose: Nose normal. No congestion. Mouth/Throat: Mucous [...] Skin is warm and dry. Findings: Rash (resolved with prednisone) present. Neurological: Mental Status: She is alert and oriented to person, place, and time. Psychiatric: Mood and Affect: Mood is anxious. Behavior: Behavior normal. Behavior is cooperative. Filed Vitals: 10/16/21 1456 BP: 110/68 Pulse: 77 Resp: 20 Temp: 97.5 ??F (36.4 ??C) TempSrc: Temporal SpO2: 99% Weight: 74.1 kg (163 lb 6.4 oz) Height: 5' 4 (1.626 m) Assessment Encounter Diagnose(s) ICD-10-CM ICD-9-CM SNOMED CT(R) 1. Attention deficit hyperactivity disorder (ADHD), combined type F90.2 314.01 ATTENTION DEFICIT HYPERACTIVITY DISORDER, COMBINED TYPE amphetamine- dextroamphetamine (ADDERALL) 30 MG tablet 2. Contact dermatitis, unspecified contact dermatitis type, unspecified trigger L25.9 692.9 CONTACTDERMATITIS 3. Seasonal allergies J30.2 477.9 SEASONAL ALLERGY loratadine 10 MG tablet Recommendations and Plan: Start Adderall 30 mg Daily Start loratadine 10 mg daily for seasonal allergies Follow up in 1 month or sooner if needed 1. Attention deficit hyperactivity disorder (ADHD), combined type The patient's symptoms meet criteria for treatment of ADHD. She will start trial of Adderall at 30 mg twice daily, watching closely for adverse effects, and then will follow up with me in 6-8 weeks. She understands the need to take medication regularly. Will report any side effects, including tremor, palpitations, or weight loss to us immediately. Understands the risk of this medication. - amphetamine-dextroamphetamine (ADDERALL) 30 MG tablet; Take 1 tablet (30 mg total) by mouth daily. Dispense: 30 tablet; Refill: 0 2. Contact dermatitis, unspecified contact dermatitis type, unspecified trigger Resolved call office if symptoms return 3. Seasonal allergies Patient with allergic rhinitis. Discussed the stepwise treatment of allergic rhinitis along with oral and topical therapy. Discussed and demonstrated appropriate technique for use of nasal sprays. RTC PRN. Discussed using Sinus Rinse as well. Patient agrees with treatment plan. - loratadine 10 MG tablet; Take 1 tablet (10 mg total) by mouth daily. Dispense: 30 tablet; Refill:3 FAITH FRYE NP 10/16/2021 3:22 PM Cosigned by Anil Philip MD at 10/16/2021 4:59 PM CDT documented in this encounter Plan of Treatment Upcoming Encounters Date Type Department Care Team (Late st Contact Info) Description 09/08/2024 10:10 AM CUSHION MAT MAKER Office Visit [facility] Family Medicine - [place] [address] [facility] [address] [place] [address] Samantha Sanders MD [address] [place] [address] documented as of this encounter Visit Diagnoses Diagnosis Attention deficit hyperactivity disorder (ADHD), combined type- Primary Contact dermatitis, unspecified contact dermatitis type, unspecified trigger Seasonal allergies Allergic rhinitis, cause unspecified documented in this encounter Additional Health Concerns Assessment Noted Time PHQ-9 Depression Total Score: 5 09/05/19 22 10:09 AM CUSHION MAT MAKER documented as of this encounter Care Teams Water Main Installer Helper Relationship Specialty Start Date End Date Faith Frye NP PCP - General NURSE PRACTITIONER 05/23/21 04/20/22 documented as of this encounter
--- OUTSIDE RECORDS SUMMARY | 2024-07-24 00:47 | XMS_ITS | Encounter Summary ---
Author Organization [facility] [place] [facility] Address [address] [place] [address]. [place], [place] [address] [place], [place] [id number] Care Team Providers Care Chief Passenger Ship Steward/Stewardess Name Role Phone Faith Galvez UNEMPLOYMENT INSURANCE HEARING OFFICER Primary Care Provider Unavailabl e Reason for Visit * Reason Onset Date Comments Question 09/23/2021 Encounter Details Date Type Department Care Team (Late st Contact Info) Description 09/23/2021 Telephone [facility] Family & Internal Medicine [address] [address] Faith Galvez, UNEMPLOYMENT INSURANCE HEARING OFFICER Question Social History Tobacco Use Types Packs/Day Years Used Date Smoking Tobacco: Every Day Cigarettes 0.3 20 Smokeless Tobacco: Never Comments:provider to school counselor Alcohol Use Standard Drinks/Week Comments [...] Coronavirus/COVID-19? No / Unsure 09/05/2021 9:59 AM RN WOUND documented as of this encounter Progress Notes * Edna Nunez RN - 09/23/2021 1:58 PM CST Spoke to Karlie-she indicated that the rash is getting better since she has stopped her amoxicillin-but is still not sure that is what was causing the rash- denies any S.O.B.-wanted to ask about medication changes-instructed to talk with provider at upcoming appointment-voiced understanding WOUND * Judy Koch - 09/23/2021 11:06 AM CST Pt called wanting to talk with nurse about her meds she has a rash and not sure whats going on she did ottoniel F/U for 09/25 please advise c/b # [phone] WOUND documented in this encounter Plan of Treatment Upcoming Encounters Date Type Department Care Team (Late st Contact Info) Description 09/08/2024 10:10 AM RN WOUND Office Visit [facility] Family Medicine - [place] [address] [facility] [address] [place], [place] [phone] Samantha Sanders MD [address] [place], [place] [phone] documented as of this encounter Visit Diagnoses Not on filedocumented in this encounter Additional Health Concerns Assessment Noted Time PHQ-9 Depression Total Score: 5 09/05/19 10:09 AM RN WOUND documented as of this encounter Care Teams Chief Passenger Ship Steward/Stewardess Relationship Specialty Start Date End Date Faith Galvez, UNEMPLOYMENT INSURANCE HEARING OFFICER PCP - General NURSE PRACTITIONER 05/23/21 04/20/22 documented as of this encounter
--- OUTSIDE RECORDS SUMMARY | 2024-07-24 00:47 | XMS_ITS | Encounter Summary ---
Author Organization [facility] Address [address] [place] [address]. [place], [place] [id number] [place], [place] [id number] Care Team Providers Care Walking Dragline Oiler Name Role Phone Faith Galvez EXECUTIVE VICE PRESIDENT Primary Care Provider Unavailabl e Encounter Details Date Type Department Care Team (Late Contact Info) Description 09/05/2021 Orders Only [facility] Family & Internal Medicine [address] [address] Faith Galvez, EXECUTIVE VICE PRESIDENT Social History Tobacco Use Types Packs/Day Years Used Date Smoking Tobacco: Every Day Cigarettes 0.3 20 Smokeless Tobacco: Never Comments:provider to assistant corporation counsel Alcohol Use Standard Drinks/Week Comments Yes [...] Coronavirus/COVID-19? No / Unsure 09/05/2021 9:59 AM COKE OVEN PATCHER documented as of this encounter Plan of Treatment Upcoming Encounters Date Type Department Care Team (Late st Contact Info) Description 09/08/2024 10:10 AM COKE OVEN PATCHER Office Visit [facility] Family Medicine - [place] [address] [place] [address] Samantha Sanders MD [address] [place] [address] documented as of this encounter Visit Diagnoses Diagnosis Mixed hyperlipidemia- Primary documented in this encounter Additional Health Concerns Assessment Noted Time PHQ-9 Depression Total Score: 5 09/05/19 10:09 AM COKE OVEN PATCHER documented as of this encounter Care Teams Walking Dragline Oiler Relationship Specialty Start Date End Date Faith Galvez, EXECUTIVE VICE PRESIDENT PCP - General NURSE PRACTITIONER 05/23/21 04/20/22 documented as of this encounter
--- OUTSIDE RECORDS SUMMARY | 2024-07-24 00:48 | XMS_ITS | Encounter Summary ---
Author Organization [facility] Address [address] [place] [address]. [place], [place] [id number] [place], [place] [id number] Care Team Providers Care Band Cutter Name Role Phone Vianey Meyer EMANI Primary Care Provider [phone] Reason for Visit * Reason Comments Other weight issues, inste ad of adderall possibly phnermine. Encounter Details Date Type Department Care Team (Late st Contact Info) Description 07/31/2020 12:00 PM DIE CUTTING MACHINE OPERATOR Office Visit [facility] Family & Internal Medicine [id number] [place] [address] Gale Dempsey APNP [address] [place] [address] Other (weight issues, instead of adderall possibly phnermine. ) Social History Tobacco Use Types Packs/Day Years Used Date Smoking Tobacco: Every Day Cigarettes 0.3 20 Smokeless Tobacco: Never Alcohol Use Standard Drinks/Week Comments Yes 0 (1 standard drink = 0.6 oz pur e alcohol) AUDIT-C Answer Date Recorded Frequency of Alcohol Consumption 2-4 times a thu08/16/2018 Average Number of Drinks Not on file 019 Frequency of Binge Drinking Not on file 07/21 PHQ-2 Answer Date Recorded PHQ-2 Score 2 06/27/2019 Comments No Sex and Gender Information Value Date Recorded Sex Assigned at Not on file Legal Sex Female 4:47 PM CDT Gender Identity Not on file Sexual Orientation Not on file COVID-19 Exposure Response Date Recorded In the last month, have you been in contact with someone who was confirmed or suspected to have Coronavirus / COVID-19? No / Unsure 07/31/2020 12:03 PM DIE CUTTING MACHINE OPERATOR documented as of this encounter Last Filed Vital Signs Vital Sign Reading Time Taken Comments Blood Pressure 112/62 07/31/2020 12:13 PM DIE CUTTING MACHINE OPERATOR Pulse 84 07/31/2020 12:13 PM DIE CUTTING MACHINE OPERATOR Temperature 36.9 ??C (98.4 ??F) 07/31/2020 12:[address] Respiratory Rate 20 07/31/2020 12:13 PM DIE CUTTING MACHINE OPERATOR Oxygen Saturation 97% 07/31/2020 12:13 PM DIE CUTTING MACHINE OPERATOR Inhaled Oxygen Concentration - - Weight 71.7 kg (158 lb) 07/31/2020 12:13 PM DIE CUTTING MACHINE OPERATOR Height 152.4 cm (5') 07/31/2020 12:13 PM DIE CUTTING MACHINE OPERATOR Body Mass Index 30.86 07/31/2020 12:13 PM DIE CUTTING MACHINE OPERATOR documented in this encounter Progress Notes * CHACORTA Cobb - 07/31/2020 12:00 PM CST Images from the original note were not included. [facility]ILY AND INTERNAL MEDICINE OFFICE VISIT Reason for Visit: Other (weight issues, instead of adderall possibly phnermine. ) History of Present Illness: 45 yo pt here today to discuss weight issues. Over the past 9 months, she has gained 19 lbs. She notes no real change in her activity or diet. She notes the weight gain is causing her to have frustration and depression. She is tearful at times in exam room. Labs were ordered at her last visit with me, but have not been done as of yet. She was laid off in November due to COVID---and does admit her activity did decrease a little. After being laid off---her depression worsened. She notes overall, she feels good---but is just frustrated ather current situation. She is on Adderall---and is inquiring about holding off on the Adderall and trying phentermine for a couple of months. Her BP and HR are well controlled. She feels like most of the weight gain occurred in her abdomen. She tolerates the adderall well with no bothersome side effects. She has not beenon phentermine in the past. She denies any heart issues. She has tried to make some positive dietary changes---reducing her fast food intake, cooks at home most of the time. Does not drink a lot of soda. She has reduced her alcohol intake. These changes----she just started about a week ago. She is not currently keeping a dietary log. ROS: Review of Systems Constitutional: Negative for chills, fever and malaise/fatigue. HENT: Negative for congestion. Respiratory: Negative for cough and shortness of breath. Cardiovascular: Negative for chest pain and palpitations. Gastrointestinal: Negative for abdominal pain, diarrhea, nausea and vomiting. Neurological: Negative for dizziness and headaches. Psychiatric/Behavioral: Negative for depression. Medications: Current Outpatient Medications: ??? amphetamine-dextroamphetamine (ADDERALL) 10 MG tablet, Take 1 tablet (10 mg total) by mouth 3 (three) times daily., Disp: 90 tablet, Rfl: 0 ??? buPROPion XL 300 MG 24 hr tablet, Take 1 tablet (300 mg total) by mouth daily., Disp: 90 tablet, Rfl: 3 ??? Eszopiclone (LUNESTA) 3 MG Tab, Take 3 mg by mouth nightly at bedtime. Take immediately before bedtime, Disp: 30 tablet, Rfl: 2 ??? azelastine 0.1 % nasal spray, 2 sprays by Nasal route 2 (two) times daily. Use in each nostril as directed, Disp: 30 mL, Rfl: 0 ??? busPIRone 10 MG tablet, Take 1 tablet (10 mg total) by mouth 2 (two) times daily. (Patient taking differently: Take 10 mg by mouth 2 (two) times daily as needed. ), Disp: 60 tablet, Rfl: 11 ??? dicyclomine 10 MG capsule, Take 10 mg by mouth as needed. , Disp: , Rfl: ??? vortioxetine 10 MG tablet, Take 1 tablet (10 mg total) by mouth daily., Disp: 30 tablet, Rfl: 1 Allergies: No Known Allergies Medical History: Past Medical History: Diagnosis Date ??? Bowel obstruction (CMS/HCC) ??? Ulcerative (chronic) enterocolitis, other complication (CMS/HCC) Surgical History: Past Surgical History: Procedure Laterality Date ??? APPENDECTOMY ??? APPENDECTOMY ??? BREAST LUMPECTOMY Left ??? HERNIA REPAIR ??? HYSTERECTOMY Social History: Social History Socioeconomic History ??? Marital status: Spouse name: Not on file ??? Number of children: Not on file ??? Years of education: Not on file ??? Highest education level: Not on file Occupational History ??? Not on file Social Needs ??? Financial resource strain: Not on file ??? Food insecurity Worry: Not on file Inability: Not on file ??? Transportation needs Medical: Not on file Non-medical: Not on file Tobacco Use ??? Smoking status: Current Every Day Smoker Packs/day: 0.25 Years: 20.00 Pack years: 5.00 ??? Smokeless tobacco: Never Used Substance and Sexual Activity ??? Alcohol use: Yes Frequency: 2-4 times a month ??? Drug use: No ??? Sexual activity: Not Currently control/protection: Surgical Lifestyle ??? Physical activity Days per week: Not on file Minutes per session: Not on file ??? Stress: Not on file Relationships ??? Social connections Talks on phone: Not on file Gets together: Not on file Attends alevism service: Not on file Active member of club or organization: Not on file Attends meetings of clubs or organizations: Not on file Relationship status: Not on file ??? Intimate partner violence Fear of current or ex partner: Not on file Emotionally abused: Not on file Physically abused: Not on file Forced sexual activity: Not on file Other Topics Concern ??? Not on file Social History Narrative ??? Not on file Family History: Family History Problem Relation Name Age of Onset ??? Heart Mother ??? Heart Father ??? Heart Paternal Grandfather ??? Aneurysm Paternal Grandfather ??? Cancer Paternal Grandfather colon PE: Physical Exam Constitutional: She is oriented to person, place, and time and well-developed, well-nourished, and in no distress. HENT: Head: Normocephalic and atraumatic. Eyes: Conjunctivae and EOM are normal. No scleral icterus. Neck: Normal range of motion. Neck supple. No tracheal deviation present. Cardiovascular: Normal rate, regular rhythm and normal heart sounds. No murmur heard. Pulmonary/Chest: Effort normal and breath sounds normal. No stridor. No respiratory distress. She has no wheezes. She has no rales. Musculoskeletal: Normal range of motion. General: No deformity. Neurological: She is alert and oriented to person, place, and time. Gait normal. Skin: Skin is warm and dry. No rash noted. No erythema. No pallor. Psychiatric: Mood and affect normal. Nursing note and vitals reviewed. Filed Vitals: 07/31/20 1213 BP: 112/62 Pulse: 84 Resp: 20 Temp: 98.4 ??F (36.9 ??C) TempSrc: Oral SpO2: 97% Weight: 71.7 kg (158 lb) Height: 5' (1.524 m) Labs: Labs Reviewed Diagnoses/Impression: 1. BMI 30.0-30.9,adult 2. Obesity (BMI 30-39.9) Recommendations and Plan: 1. BMI 30.0-30.9,adult 2. Obesity (BMI 30-39.9) Patient would necessarily be due for a refill of her Adderall until August 08, so we will have herhold off before filling phentermine until that time. Also, I would like to see her routine fasting labs that have been previously ordered prior to initiating any new medication. Patient verbalized understanding of this plan. I also discussed with patient therapeutic lifestyle changes and dietary changes conducive to weight loss to include calorie counting/dietary log. The risk, benefits and side effects of phentermine were discussed in detail with patient today including abuse potential. We will fill August 08, 2020 provided labs returned acceptable. Not to be filled before then. Pt admittedto taking her Adderall more than prescribed and she is already out. Time Spent: Approximately 25 minutes was spent in direct patient consultation and the majority of that time (>50%) was spent on counseling and coordination of care. No orders of the defined types were placed in this encounter. Cannot display discharge medications since this is not an admission. PCP: CHACORTA Cobb 07/31/2020 CUTTING MACHINE OPERATOR CUTTING MACHINE OPERATOR documented in this encounter Plan of Treatment Upcoming Encounters Date Type Department Care Team (Late st Contact Info) Description 09/08/2024 10:10 AM DIE CUTTING MACHINE OPERATOR Office Visit [facility] Family Medicine - [place] [address] [place] [address] Samantha Sanders MD [address] [place] [address] documented as of this encounter Visit Diagnoses Diagnosis BMI 30.0-30.9,adult- Primary Body Mass Index 30.0-30.9, adult Obesity (BMI 30-39.9) Obesity, unspecified documented in this encounter Additional Health Concerns Infection Onset Date Last Indicated Resolved Time COVID-19 Rule Out 06/06/2020 06/06/2020 08/05/2020 12:33 AM DIE CUTTING MACHINE OPERATOR Assessment Noted Time PHQ-9 Depression Total Score: 7 01/18/20 19 12:34 PM CDT documented as of this encounter Care Teams Band Cutter Relationship Specialty Start Date End Date Vianey Meyer FNP [address] [place] [id number] PCP - General Nurse Practitioner Family 06/21/1805/22/21 documented as of this encounter
--- OUTSIDE RECORDS SUMMARY | 2024-07-24 00:48 | XMS_ITS | Encounter Summary ---
Author Organization [facility] Address [address] [place] [address]. [place] [address] Care Team Providers Care Senior Power Plant Operator Name Role Phone Vianey Meyer Primary Care Provider [phone] Reason for Visit * Reason Comments Attention Deficit Hyperactivity Disorder discuss medication adjustement Weight Problem discuss injections f or weight loss Encounter Details Date Type Department Care Team (Latest Contact Info) Description 02/25/2021 11:00 AM CDT Telemedicine [facility] Family & Internal Medicine [address] [phone] Vianey Meyer FNP [address] [place] [id number] Attention Deficit Hyperactivity Disorder (discuss medication adjustement); Weight Problem (discuss injections for weight loss) Social History Tobacco Use Types Packs/Day Years Used Date Smoking Tobacco: Every Day Cigarettes 0.3 20 Smokeless Tobacco: Never Tobacco Cessation:Ready to Q uit: Yes; Counseling Given: Yes Comments:provider to loan counselor Alcohol Use Standard Drinks/Week Comments Yes [...] please move on to questions 3-9 0 12/18/2020 Comments No Sex and Gender Information Value Date Recorded Sex Assigned at Not on file Legal Sex Female 4:47 PM CDT Gender Identity Not on file Sexual Orientation Not on file COVID-19 Exposure Response Date Recorded In the last month, have you been in contact with someone who was confirmed or suspected to have Coronavirus / COVID-19? Unable to assess 02/25/2021 6:45 AM CDT documented as of this encounter Last Filed Vital Signs Vital Sign Reading Time Taken Comments Blood Pressure - - Pulse - - Temperature - - Respiratory Rate - - Oxygen Saturation - - Inhaled Oxygen Concentration - - Weight 72.6 kg (160 lb) 02/25/2021 11:47 AM CDT Height 154.9 cm (5' 1 ) 02/25/2021 11:47 AM CDT Body Mass Index 30.23 02/25/2021 11:47 AM CDT documented in this encounter Patient Instructions * Patient Instructions* EMANI Crowder - 02/25/2021 11:00 AM CDT Take medications as directed and prescribed. Make sure to maintain a heart healthy, low calorie diet as discussed. Call and schedule your u/s as we discussed and we will call you with these results when they come back. Follow up in one month or sooner if needed. documented in this encounter Progress Notes * EMANI Crowder - 02/25/2021 11:00 AM CDTSummary: ADHD, weight issues, neck lump Office Progress Note Reason for Visit: Attention Deficit Hyperactivity Disorder (discuss medication adjustement) and Weight Problem (discuss injections for weight loss) I introduced and identified myself, received verbal consent from the patient to proceed with this video visit and made the patient aware that the same confidentiality and information strategist practices apply. The patient joined the video visit from Vehicle. I completed the virtual visit from Office. The following clinical staff helped with this visit MA: jamaica Perry. Total Time Spent in Minutes: 25 History of Present Illness: Karlie presents via virtual visit for ADHD f/u and weight issues. bmi 30- She would like to [facility] if [facility]. She has tried dieting (calorie counting), phentermine, weight watchers and Vyvanse in the past with no loss of weight. We discussed to continue with diet control and we an try to see if her insurance would cover this medication. ADHD- She is taking 50 mg daily and this does not seem to be taking care of her symptoms at the end of the day. She does report some fatigue, like the medication is wearing off. We discussed increasing this by 10 mg and see if this helps. She did just refill her 50 mg of Vyvanse, so I will send 10 mg pres cription out today to add to this dose. She is agreeable to this plan. Neck lump- She reports that she has noticed a palpable lump on her neck over the last couple days. It is in the center of her neck where her thyroid is located. Her last TSH was noted to be normal. We discussedgetting an U/S of this lump and she is agreeable. She does have history thyroid disease in her family. ROS: Review of Systems Constitutional: Positive for malaise/fatigue. Negative for chills, diaphoresis, fever and weight loss. HENT: Negative for congestion, ear discharge, ear pain, hearing loss, nosebleeds, sinus pain, sore throat and tinnitus. Eyes: Negative for blurred vision, double vision, photophobia, pain, discharge and redness. Respiratory: Negative for cough, hemoptysis, sputum production, shortness of breath, wheezing and stridor. Cardiovascular: Negative for chest pain, palpitations, orthopnea, claudication, leg swelling and PND. Gastrointestinal: Negative for abdominal pain, blood in stool, constipation, diarrhea, heartburn, melena, nausea and vomiting. Genitourinary: Negative for dysuria, flank pain, frequency, hematuria and urgency. Musculoskeletal: Negative for back pain, falls, joint pain, myalgias and neck pain. Skin: Negative for itching and rash. Neurological: Negative for dizziness, tingling, tremors, sensory change, speech change, focal weakness, seizures, loss of consciousness, weakness and headaches. Endo/Heme/Allergies: Negative for environmental allergies and polydipsia. Does not bruise/bleed easily. Psychiatric/Behavioral: Negative for depression, hallucinations, memory loss, substance abuse and suicidal ideas. The patient is not nervous/anxious and does not have insomnia. ADHD symptoms. Medications: Current Outpatient Medications on File Prior to Visit Medication Sig ??? Eszopiclone 3 MG Tab TAKE ONE TABLET BY MOUTH IMMEDIATELY BEFORE BEDTIME. ??? lisdexamfetamine 50 MG capsule Take 1 capsule (50 mg total) by mouth every morning. ??? Multiple Vitamin (MULTIVITAMIN ADULT OR) ??? Vitamin D, Cholecalciferol, 25 MCG (1000 UT) Cap ??? PARoxetine (PAXIL) 10 MG tablet Take 1 tablet (10 mg total) by mouth every morning. No current facility-administered medications on file prior to visit. Allergies: No Known Allergies Medical History: Past Medical History: Diagnosis Date ??? Allergic rhinitis 05/10/2018 ??? Bowel obstruction (CMS/HCC) ??? Ulcerative (chronic) enterocolitis, other complication (CMS/HCC) ??? Ulcerative colitis (CMS/HCC) 04/15/2018 Surgical History: Past Surgical History: Procedure Laterality [...] Never Used ??? Tobacco comment: provider to loan counselor Substance and Sexual Activity ??? Alcohol use: Yes Comment: 1 glass of wine a day ??? Drug use: No ??? Sexual activity: Not Currently control/protection: Surgical Other Topics Concern ??? Not on file Social History Narrative ??? Not on file Social Determinants of Health Financial Resource Strain: ??? Difficulty of Paying Living Expenses: Food Insecurity: ??? Worried About Running Out of Food in the Last Year: ??? Ran Out of Food in the Last Year: Transportation Needs: ??? Lack of Transportation (Medical): ??? Lack of Transportation (Non-Medical): Physical Activity: ??? Days of Exercise per Week: ??? Minutes of Exercise per Session: Stress: ??? Feeling of Stress : Social Connections: ??? Frequency of Communication with Friends and Family: ??? Frequency of Social Gatherings with Friends and Family: ??? Attends Druze Services: ??? Active Member of Clubs or Organizations: ??? Attends Club or Organization Meetings: ??? Marital Status: Intimate Partner Violence: ??? Fear of Current or Ex-Partner: ??? Emotionally Abused: ??? Physically Abused: ??? Sexually Abused: Family History: Family History Problem Relation Name Age of Onset ??? Heart Mother ??? Heart Father ??? Heart Paternal Grandfather ??? Aneurysm Paternal Grandfather ??? Cancer Paternal Grandfather colon PE: Physical Exam Constitutional: She is oriented to person, place, and time. She appears well- developed and well-nourished. She is cooperative. She does not have a sickly appearance. She does not appear ill. No distress. HENT: Head: Normocephalic and atraumatic. Right Ear: Hearing and external ear normal. Left Ear: Hearing and external ear normal. Nose: Nose normal. Mouth/Throat: Mucous membranes are normal. Eyes: Conjunctivae, EOM and lids are normal. Neck: Reported palpable lump on neck, where thyroid is located. This is hard to see during VV Pulmonary/Chest: Effort normal. No accessory muscle usage. No respiratory distress. Musculoskeletal: Cervical back: Full passive range of motion without pain and normal range of motion. Neurological: She is alert and oriented to person, place, and time. Skin: Skin is intact. Psychiatric: She has a normal mood and affect. Her speech is normal and behavior is normal. Judgment and thought content normal. Cognition and memory are normal. Filed Vitals: 02/25/21 1147 Weight: 72.6 kg (160 lb) Height: 5' 1 (1.549 m) Diagnoses/Impression: 1. Attention deficit hyperactivity disorder (ADHD), combined type lisdexamfetamine 10 MG capsule 2. Goiter US THYROID 3. Class 1 obesity due to excess calories with serious comorbidity and body mass index (BMI) of 30.0 to 30.9 in adult liraglutide, Weight Management, 18 MG/3ML injection Insulin Pen Needle (B-D UF III MINI PEN NEEDLES) 31G X 5 MM Misc 4. Fatigue, unspecified type Recommendations and Plan: 1. Attention deficit hyperactivity disorder (ADHD), combined type - lisdexamfetamine 10 MG capsule; Take one daily to use with her 50 mg capsules to equal 60 mg daily dose Dispense: 30 capsule; Refill: 0 - she will continue her 50 mg capsule daily and add the 10 mg capsule to total 60 mg since she had just filled her 50 mg dose. She will call for any issues or concerns - advised one month follow up 2. Goiter - US THYROID; Future - u/s order faxed to [facility] per pt request. She was advised to call and schedule this appointment. We will call her with these results when they come back. 3. Class 1 obesity due to excess calories with serious comorbidity and body mass index (BMI) of 30.0 to 30.9 in adult - liraglutide, Weight Management, 18 MG/3ML injection; Start With:0.6 mg (0.1 mL) SC once daily x7 days, then 1.2 mg (0.2 mL) SC once daily x7 days, then 1.8 mg (0.3 mL) SC once daily x 7 days, then 2.4 mg (0.4 mL) SC once daily x 7 days, then 3 mg (0.5 mL) SC once daily. Dispense: 5 pen; Refill: 11 - Insulin Pen Needle (B-D UF III MINI PEN NEEDLES) 31G X 5 MM Misc; Use daily with Saxenda Dispense: 100 each; Refill: 11 - advised to maintain a heart healthy, low calorie diet and daily physical activity. - we discussed that her insurance might not pay for this medication but we will try. Advised to usethis as directed and to call for any issues with this medication. - one month follow up advised, sooner if needed. 4. Fatigue, unspecified type - she will continue her current medications with today's changes as mentioned above. - advised one month follow up Orders Placed This Encounter ??? US THYROID ??? lisdexamfetamine 10 MG capsule ??? liraglutide, Weight Management, 18 MG/3ML injection ??? Insulin Pen Needle (B-D UF III MINI PEN NEEDLES) 31G X 5 MM Misc Cannot display discharge medications since this is not an admission. PCP: EMANI KILGORE 02/25/2021 Cosigned by Rodger Miller MD at 03/11/2021 8:30 PM CDT documented in this encounter Plan of Treatment Upcoming Encounters Date Type Department Care Team (Late st Contact Info) Description 09/08/2024 10:10 AM BUSINESS DEVELOPMENT SPECIALIST Office Visit [facility] Family Medicine - [place] [address] [place] [address] Samantha Sanders MD [address] [place] [address] documented as of this encounter Visit Diagnoses Diagnosis Attention deficit hyperactivity disorder (ADHD), combined type- Primary Goiter Goiter, unspecified Class 1 obesity due to excess calories with serious comorbidity and body mass index (BMI) of 30.0 to 30.9 in adult Fatigue, unspecified type documented in this encounter Additional Health Concerns Assessment Noted Time PHQ-9 Depression Total Score: 2 12/19/19 21 4:22 PM CDT documented as of this encounter Care Teams Senior Power Plant Operator Relationship Specialty Start Date End Date Vianey Meyer FNP [address] [place] [id number] PCP - General Nurse Practitioner Family 06/21/1805/22/21 documented as of this encounter
--- OUTSIDE RECORDS SUMMARY | 2024-07-24 00:48 | XMS_ITS | Encounter Summary ---
Author Organization [facility] Address [address] [place] [address]. [place], [place] [address] [place] [id number] Care Team Providers Care Estimator And Drafter Name Role Phone Vianey Meeyr EMANI Primary Care Provider [phone] Encounter Details Date Type Department Care Team (Latest Contact Info) Description 02/25/2021 Travel Social History Tobacco Use Types Packs/Day [...] ( Contact Info) Description 09/08/2024 10:10 AM ENGINE TEST CELL TECHNICIAN Office Visit [facility] Family Medicine - [place] [address] [place] [address] Samantha Sanders MD [address] [place] [phone] documented as of this encounter Visit Diagnoses Not on filedocumented in this encounter Additional Health Concerns Assessment Noted Time PHQ-9 Depression Total Score: 2 12/19/19 21 4:22 PM CDT documented as of this encounter Care Teams Estimator And Drafter Relationship Specialty Start Date End Date Vianey Meyer FNP [address] [place] [id number] PCP - General Nurse Practitioner Family 06/21/1805/22/21 documented as of this encounter
--- OUTSIDE RECORDS SUMMARY | 2024-07-24 00:48 | XMS_ITS | Encounter Summary ---
Author Organization [facility] Address [address] [place] [address]. [place] [id number] Care Team Providers Care Disk Grinder Name Role Phone Vianey Meyer Primary Care Provider [phone] Reason for Visit * Reason Onset Date Comments Medication 08/13/2020 Encounter Details Date Type Department Care Team (Late st Contact Info) Description 08/13/2020 Telephone [facility] Family & Internal Medicine [address] [address] Vianey Meyer FNP [facility] [place] [address] Medication Social History Tobacco Use Types Packs/Day [...] COVID-19? No / Unsure 07/31/2020 12:03 PM POULTRY FARM MANAGER documented as of this encounter Progress Notes * Jacqueline Schilling MA - 08/13/2020 5:39 PM CST Pt voiced understanding BB 08/13/20 TRY FARM MANAGER * Jacqueline Schilling MA - 08/13/2020 5:36 PM CST ----- Message from EMANI Crowder sent at 08/13/2020 4:57 PM POULTRY FARM MANAGER ----- Nothing we can do for this, if she was given tablets, she could cut these in half. If it is bothersome, she should stop taking them. ----- Message ----- From: Jacqueline Schilling MA Sent: 08/13/2020 4:16 PM POULTRY FARM MANAGER To: EMANI Crowder TRY FARM MANAGER * EMANI Crowder - 08/13/2020 4:57 PM CST Nothing we can do for this, if she was given tablets, she could cut these in half. If it is bothersome, she should stop taking them. TRY FARM MANAGER * Jacqueline Schilling MA - 08/13/2020 4:13 PM CST Appt made in aug for Phentermine. Pt states that she is having excessive energy to phentermine. Pt ran the other day and she normally doesn't run. Also, having issues with sleep. However, pt doesn't want a new medication. Just wants to know what to do with excessive energy.pt also wondered is it just something that she needs to get used to with this med? BB 08/13/20 TRY FARM MANAGER documented in this encounter Plan of Treatment Upcoming Encounters Date Type Department Care Team (Late st Contact Info) Description 09/08/2024 10:10 AM POULTRY FARM MANAGER Office Visit [facility] Family Medicine - [place] [address] [place] [address] Samantha Sanders MD [address] [place] [address] documented as of this encounter Visit Diagnoses Not on filedocumented in this encounter Additional Health Concerns Assessment Noted Time PHQ-9 Depression Total Score: 7 01/18/20 19 12:34 PM CDT documented as of this encounter Care Teams Disk Grinder Relationship Specialty Start Date End Date Vianey Meyer FNP [address] [place] [address] PCP - General Nurse Practitioner Family 06/21/1805/22/21 documented as of this encounter
--- OUTSIDE RECORDS SUMMARY | 2024-07-24 00:48 | XMS_ITS | Encounter Summary ---
Author Organization [facility] Address [address] [place] [address]. [place], [place] [address] [place] [address] Care Team Providers Care Nut Sheller Name Role Phone Vianey Meyer EMANI Primary Care Provider [phone] Encounter Details Date Type Department Care Team (Late st Contact Info) Description 08/01/2020 Orders Only [facility] Family & Internal Medicine [place] [address] [place] [phone] Gale Dempsey APNP [address] [place] [address] Social History Tobacco Use Types Packs/Day Years [...] COVID-19? No / Unsure 07/31/2020 12:03 PM PRODUCT INFO SPECIALIST documented as of this encounter Progress Notes * CHACORTA Cobb - 08/03/2020 2:33 PM CST Glucose sl elevated at 102--add on a HGB A1C. LDL (bad cholesterol) quite a bit elevated at 184----we can try a strict diet reducing carbs, animal fats and fried foods. I would suggest rechecking lipids in 3 months and if no improvement, may need to discuss starting a statin. Vit D low at 26. ---have her increase her Vit D3 by 1000 IU once daily. UCT INFO SPECIALIST documented in this encounter Plan of Treatment Upcoming Encounters Date Type Department Care Team (Late st Contact Info) Description 09/08/2024 10:10 AM PRODUCT INFO SPECIALIST Office Visit [facility] Family Medicine - [place] [address] [place] [address] Samantha Sanders MD [address] [place] [address] documented as of this encounter Procedures Procedure Name Priority Date/Time Associated Diagnosis Comments T4 AND TSH 08/01/2020 10:33 AM PRODUCT INFO SPECIALIST COMPREHENSIVE METABOLIC PANEL 08/01/2020 10:33 AM PRODUCT INFO SPECIALIST LIPID PANEL 08/01/2020 10:33 AM PRODUCT INFO SPECIALIST VITAMIN D, 25 OH 08/01/2020 10:3 3 AM PRODUCT INFO SPECIALIST URIC ACID BLOOD 08/01/2020 10:33 AM PRODUCT INFO SPECIALIST documented in this encounter Results * URIC ACID BLOOD (08/01/2020 10:33 AM PRODUCT INFO SPECIALIST) URIC ACID 4.5 2.6 - 6.2 mg/dL [facility] 1 Comment:Therapeutic target f or gout patients: <6.0 08/01/2020 10:3 3 AM PRODUCT INFO SPECIALIST 08/01/2020 Narrative [facility] - 08/02/2020 6:10 AM PRODUCT INFO SPECIALIST Performed at: ??01 - [facility] [address] ??[id number] Doughnut Batter Mixer: Elver Bradley PhD, Phone: ??[phone] Gale Tom Roselyn [facility] Final Resul t Performing Organization Address [facility] de Phone Number [facility] [address] [place] [address] [facility] * T4 AND TSH (08/01/2020 10:33 AM PRODUCT INFO SPECIALIST) TSH 1.160 0.450 - 4.50 uIU/mL [facility] 1 08/01/2020 10:3 3 AM PRODUCT INFO SPECIALIST 08/01/2020 Narrative [facility] - 08/02/2020 6:10 AM PRODUCT INFO SPECIALIST Performed at: ??01 - [facility] [address] ??[id number] Doughnut Batter Mixer: Elver Bradley PhD, Phone: ??[phone] [facility] Final Resul t Performing Organization Address [facility] Phone Number [facility] [address] [place] [address] [facility] 1 * (ABNORMAL) VITAMIN D, 25 OH (08/01/2020 10:33 AM PRODUCT INFO SPECIALIST) VITAMIN D 25 HYDROXY S/P/B 26.1(L) 30.0 - 100.0 ng/mL [facility] 1 Comment: Vitamin D deficiency has been defined by the [place] of Medicine and an Endocrine Society practice guideline as a level of serum 25-OH vitamin D less than 20 ng/mL (1,2). The Endocrine Society went on to further define vitamin D insufficiency as a level between 21 and 29 ng/mL (2). 1. IOM ([place] of Medicine). 2010. Dietary reference ?? intakes for calcium and D. [place]: The ?? National AcademCelluFuel Press. 2. Ian MF, Nedra NC, Shanae HULL, et al. ?? Evaluation, treatment, and prevention of vitamin D ?? deficiency: an Endocrine Society clinical practice ?? guideline. JCEM. 2011 Jan; 96(7):1911-30. 08/01/2020 10:3 3 AM PRODUCT INFO SPECIALIST 08/01/2020 Narrative [facility] - 08/02/2020 6:10 AM PRODUCT INFO SPECIALIST Performed at: ??01 - [facility] [address] ??[id number] Doughnut Batter Mixer: Elver Bradley PhD, Phone: ??[phone] [facility] Final Resul t Performing Organization Address [facility] de Phone Number [facility] [address] [place] [address] [facility] * (ABNORMAL) LIPID PANEL (08/01/2020 10:33 AM PRODUCT INFO SPECIALIST) CHOLESTEROL 253(H) 100 - 199 mg/dL [facility] 1 TRIGLYCERIDES 137 0 - 149 mg/dL [facility] 1 HDL 44 >39 mg/dL [facility] 1 VLDL CALCULATION 25 5 - 40 mg/dL [facility] 1 LDL (CALCULATED) 184(H) 0 - 99 mg/dL [facility] 1 08/01/2020 10:3 3 AM PRODUCT INFO SPECIALIST 08/01/2020 Narrative [facility] - 08/02/2020 6:10 AM PRODUCT INFO SPECIALIST Performed at: ??01 - [facility] [address] ??[id number] Doughnut Batter Mixer: Elver Bradley PhD, Phone: ??[phone] [facility] Final Resul t Performing Organization Address [facility] de Phone Number [facility] [address] [place] [address] [facility] * (ABNORMAL) COMPREHENSIVE METABOLIC PANEL (08/01/2020 10:33 AM PRODUCT INFO SPECIALIST) GLUCOSE 102(H) 65 - 99 mg/dL [facility] 1 BUN 16 6 - 24 mg/dL [facility] 1 CREATININE S/P/B 0.88 0.57 - 1.00 mg/dL [facility] 1 EGFR NON-AFR. AMER. 80 >59 mL/min/1.7 3 [facility] 1 EGFR AFR. AMER. 92 >59 mL/min/1.7 3 [facility] 1 BUN CREATININE RATIO 18 9 - 23 [facility] 1 SODIUM S/P/B 140 134 - 144 mmol/L [facility] 1 POTASSIUM S/P/B 4.5 3.5 - 5.2 mmol/L [facility] 1 CHLORIDE S/P/B 104 96 - 106 mmol/L [facility] 1 CO2 21 20 - 29 mmol/L [facility] 1 CALCIUM S/P/B 9.5 8.7 - 10.2 mg/dL [facility] 1 TOTAL PROTEIN S/P/B 7.1 6.0 - 8.5 g/dL [facility] 1 ALBUMIN S/P/B 4.5 3.8 - 4.8 g/dL [facility] 1 GLOBULIN 2.6 1.5 - 4.5 g/dL [facility] A/G RATIO 1.7 1.2 - 2.2 [facility] 1 BILIRUBIN TOTAL S/P/B 0.7 0.0 - 1.2 mg/dL [facility] 1 ALKALINE PHOSPHATASE S/P/B 92 39 - 117 IU/L [facility] 1 AST 20 0 - 40 IU/L [facility] 1 ALT 16 0 - 32 IU/L [facility] 1 08/01/2020 10:3 3 AM PRODUCT INFO SPECIALIST 08/01/2020 Narrative [facility] - 08/02/2020 6:10 AM PRODUCT INFO SPECIALIST Performed at: ??01 - [facility] [address] ??[id number] Doughnut Batter Mixer: Elver Bradley PhD, Phone: ??[phone] us [facility] Final Resul t [facility] [address] [place] [address] [facility] 1 documented in this encounter Visit Diagnoses Not on filedocumented in this encounter Additional Health Concerns Infection Onset Date Last Indicated Resolved Time COVID-19 Rule Out 06/06/2020 06/06/2020 08/05/2020 12:33 AM PRODUCT INFO SPECIALIST Assessment Noted Time PHQ-9 Depression Total Score: 7 07/01/20 19 12:34 PM CDT documented as of this encounter Care Teams Nut Sheller Relationship Specialty Start Date End Date Vianey Meyer FNP [address] [place] [address] PCP - General Nurse Practitioner Family 06/21/1805/22/21 documented as of this encounter
--- OUTSIDE RECORDS SUMMARY | 2024-07-24 00:48 | XMS_ITS | Encounter Summary ---
Author Organization [facility] Address [address] [place] [address]. [place], [place] [address] [place], [place] [id number] Care Team Providers Care Extractor And Wringer Operator Name Role Phone Vianey Meyer Primary Care Provider [phone] Reason for Visit * Reason Onset Date Comments Lab Results 08/07/2020 Encounter Details Date Type Department Care Team (Late st Contact Info) Description 08/07/2020 Telephone [facility] Family & Internal Medicine [place] [address] [place] [address] Vianey Meyer FNP [facility] [place] [address] Lab Results Social History Tobacco Use Types Packs/Day [...] COVID-19? No / Unsure 07/31/2020 12:03 PM SPLICER OPERATOR documented as of this encounter Progress Notes * Jacqueline Schilling MA - 08/07/2020 1:03 PM CST ----- Message from CHACORTA Cobb sent at 08/03/2020 2:33 PM SPLICER OPERATOR ----- Glucose sl elevated at 102--add on a [...] Vit D3 by 1000 IU once daily. CER OPERATOR documented in this encounter Plan of Treatment Upcoming Encounters Date Type Department Care Team (Late st Contact Info) Description 09/08/2024 10:10 AM SPLICER OPERATOR Office Visit [facility] Family Medicine - [place] [address] [facility] [address] [place] [address] Samantha Sanders MD [address] [place] [address] documented as of this encounter Visit Diagnoses Not on filedocumented in this encounter Additional Health Concerns Assessment Noted Time PHQ-9 Depression Total Score: 7 01/18/20 19 12:34 PM CDT documented as of this encounter Care Teams Extractor And Wringer Operator Relationship Specialty Start Date End Date Vianey Meyer FNP [address] [place] [address] PCP - General Nurse Practitioner Family 06/21/1805/22/21 documented as of this encounter
--- OUTSIDE RECORDS SUMMARY | 2024-07-24 00:48 | XMS_ITS | Encounter Summary ---
Author Organization [facility] Address [address] [place] [address]. [place], [place] [address] [place], [place] [id number] Care Team Providers Care Service Operations Manager Name Role Phone Alesia Meyer Primary Care Provider [phone] Reason for Visit * Reason Onset Date Comments Advice 01/09/2021 Encounter Details Date Type Department Care Team (Late st Contact Info) Description 01/09/2021 Telephone [facility] Family & Internal Medicine [address] [address] Alesia Meyer FNP [facility] [place] [address] Advice Social History Tobacco Use Types Packs/Day Years Used Date Smoking Tobacco: Every Day Cigarettes 0.3 20 Smokeless Tobacco: Never Comments:provider to senior counsel Alcohol Use Standard Drinks/Week Comments Yes [...] have Coronavirus / COVID-19? No / Unsure 12/18/2020 3:23 PM CDT documented as of this encounter Progress Notes * Alanna Almaguer MA - 01/16/2021 1:19 PM CDT Patient sees soid again tomorrow. See other task * EMANI Crwoder - 01/10/2021 3:32 PM CDT We need records please. * Martina White MA - 01/10/2021 1:52 PM CDT Pt states that she wants you to prescribe the phentermine, and the REFRIGERATION SERVICE TECHNICIAN at [facility] said she should be on15mg per pt. Pt states she doesn't want to get medications from two providers, so she would prefer you accept her assessment and prescribe it for her. * Alanna Almaguer MA - 01/10/2021 12:23 PM CDT lmtc 01/10/21 * EMANI Crowder - 01/10/2021 9:32 AM CDT She was on phentermine before. I am okay with them prescribing this medication. * Alanna Almaguer MA - 01/09/2021 3:56 PM CDT Patient wanted alesia to know that they ordered a full blood work up that was included in her $59 package. They told her she should limit her daily calories to 1000 and intake of protein 100gm. They also told her she is a textbook candidate for phentermine 15mg. She did not want to break her CSA bythem prescribing it and is requesting a prescription for this * Yazmin Riggs - 01/09/2021 12:53 PM CDT Patient is calling in states that she went [email or web address] for weight loss and would like a clinical development team lead to call her back. documented in this encounter Plan of Treatment Upcoming Encounters Date Type Department Care Team (Late st Contact Info) Description 09/08/2024 10:10 AM REGISTERED NURSES [facility] Family Medicine - [place] [address] [facility] [address] [place] [address] Samantha Sanders MD [address] [place] [address] documented as of this encounter Visit Diagnoses Not on filedocumented in this encounter Additional Health Concerns Assessment Noted Time PHQ-9 Depression Total Score: 2 12/19/19 21 4:22 PM CDT documented as of this encounter Care Teams Service Operations Manager Relationship Specialty Start Date End Date Alesia Meyer FNP [address] [place] [address] PCP - General Nurse Practitioner Family 06/21/1805/22/21 documented as of this encounter
--- OUTSIDE RECORDS SUMMARY | 2024-07-24 00:48 | XMS_ITS | Encounter Summary ---
Author Organization [facility] Address [address] [place] [address]. [place] [address] Care Team Providers Care Farm Equipment Technician Name Role Phone Vianey Meyer Primary Care Provider [phone] Reason for Visit * Reason Onset Date Comments Medication Problem 04/05/2021 Encounter Details Date Type Department Care Team (Late st Contact Info) Description 04/05/2021 Telephone [facility] Family & Internal Medicine [place] [address] [place] [address] Vianey Meyer FNP [facility] [place] [address] Medication Problem Social History Tobacco Use Types [...] as of this encounter Progress Notes * Sneha Batista - 04/05/2021 1:19 PM CDT Patient called in stating that she needs her medication date changed to 04/06/2021. documented in this encounter Plan of Treatment Upcoming Encounters Date Type Department Care Team (Late st Contact Info) Description 09/08/2024 10:10 AM KING MAKER Office Visit [facility] Family Medicine - [place] [address] [facility] [address] [place] [address] Samantha Sanders MD [address] [place] [address] documented as of this encounter Visit Diagnoses Diagnosis Attention deficit hyperactivity disorder (ADHD), combined type documented in this encounter Additional Health Concerns Assessment Noted Time PHQ-9 Depression Total Score: 2 12/19/19 21 4:22 PM CDT documented as of this encounter Care Teams Farm Equipment Technician Relationship Specialty Start Date End Date Vianey Meyer FNP [address] [place] [address] PCP - General Nurse Practitioner Family 06/21/1805/22/21 documented as of this encounter
--- OUTSIDE RECORDS SUMMARY | 2024-07-24 00:48 | XMS_ITS | Encounter Summary ---
Author Organization [facility] Address [address] [place] [address]. [place] [id number] [place] [address] Care Team Providers Care Fishing Gear Mechanic Name Role Phone Vianey Meyer Primary Care Provider [phone] Reason for Referral * Consultation/Treatment (Routine) - Closed Specialty Diagnoses / Procedures Referred By [place] Referred To Contact Neurology Psychiatry Diagnoses Attention deficit hyperactivity disorder (ADHD), combined type Depression with anxiety Insomnia due to other mental disorder Vianey Meyer FNP [address] [place] [address] Phone: tel: fax: Jose Nevarez MD Phone: tel: fax: Referral ID Status Reason Start Date Expiration Date V isits Requested Visits Authorized [id number] Closed Specialty Services 05/16/2021 06/15/2022 99 99 Reason for Visit * Reason Onset Date Comments Medication 05/15/2021 Encounter Details Date Type Department Care Team (Late st Contact Info) Description 05/15/2021 Telephone [facility] Family & Internal Medicine - [place] [address] [place] [address] Vianey Meyer FNP [address] [place], [place] [phone] Medication Social History Tobacco Use Types Packs/Day Years Used Date Smoking Tobacco: Every Day Cigarettes 0.3 20 Smokeless Tobacco: Never Comments:provider to child welfare counselor Alcohol Use Standard Drinks/Week Comments Yes [...] have Coronavirus / COVID-19? Unable to assess 05/15/2021 6:34 AM CDT documented as of this encounter Progress Notes * Susy Perry MA - 05/21/2021 4:48 PM CDT Patient contacted and informed that we will send rx for 20 mg when due. States she is going to stopthe vyvanse and find something natural.Patient states that she made an appointment with Dr Nevarez. Patient states that she is changing to a provider in [facility] and has appt 05/23/21 * EMANI Crowder - 05/21/2021 4:40 PM CDT We can send vyvanse 20 mg when she is due. * Sneha Batista - 05/17/2021 12:49 PM CDT Patient called in, I advised her of the following. Patient stated that she picked up this prescription last night. Patient stated that she would like her Vyvanse to be lowered to 20 MG because she feels like the 70 MG is what is causing her hypertension and anxiety. She stated that she will try getting into a counselor since psychiatrist has a long wait. * Susy Perry MA - 05/17/2021 8:19 AM CDT Lm 05/17/21 tn * EMANI Crowder - 05/16/2021 3:01 PM CDT I did send over the citalopram. Has she started this? She will still need to be seen by psychiatrist. * Claudia Singer MA - 05/16/2021 2:26 PM CDTAddended by: CLAUDIA SINGER on: 05/16/2021 02:26 PM Modules accepted: Orders * Claudia Singer MA - 05/16/2021 2:20 PM CDT Patient informed and v/u. Patient states that she is unsure if any Psychiatrist take [place]. Patient states she had seen a Psychiatrist in [place] and he referred her back to Vianey. Patient states she is worried that her system can not take the long wait to get into a psychiatrist, she has been having a lot of crying spells. Patient also reports be on buspar before which helped. Psychiatry referral ordered. * EMANI Crowder - 05/16/2021 1:36 PM CDT We need to get her over to a psychiatrist for evaluation please. * Susy Perry MA - 05/15/2021 2:35 PM CDT Patient called in and states she was on trazodone 100,adderal 20 mg and celexa in the past and feltgood on this combination. documented in this encounter Plan of Treatment Upcoming Encounters Date Type Department Care Team (Late st Contact Info) Description 09/08/2024 10:10 AM BAIL BONDING AGENT Office Visit [facility] Family Medicine - [place] [address] [facility] [address] [place] [phone] Samantha Sanders MD [address] [place] [address] Scheduled Referrals Name Type Priority Associated Diagnoses Orde r Schedule Ambulatory Referral to Psychiatry Referral Routine Attention deficit hyperactivity disorder (ADHD), combined type Depression with anxiety Insomnia due to other mental disorder Ordered: 05/16/2021 documented as of this encounter Visit Diagnoses Diagnosis Attention deficit hyperactivity disorder (ADHD), combined type- Primary Depression with anxiety Dysthymic disorder Insomnia due to other mental disorder documented in this encounter Additional Health Concerns Assessment Noted Time PHQ-9 Depression Total Score: 2 12/19/19 21 4:22 PM CDT documented as of this encounter Care Teams Fishing Gear Mechanic Relationship Specialty Start Date End Date Vianey Meyer FNP [address] [place] [address] PCP - General Nurse Practitioner Family 06/21/1805/22/21 documented as of this encounter
--- OUTSIDE RECORDS SUMMARY | 2024-07-24 00:48 | XMS_ITS | Encounter Summary ---
Author Organization [facility] Address [address] [place] [address]. [place], [place] [id number] [place] [address] Care Team Providers Care Automatic Buffing Wheel Former Name Role Phone Faith Frye CD STORAGE AND MATERIALS MAKE UP HELPER Primary Care Provider Unavailabl e Reason for Visit * Reason Comments Establish Care Discuss Medications Imm/Inj Tdap and Flu Shot Encounter Details Date Type Department Care Team (Late st Contact Info) Description 05/23/2021 8:40 AM CDT Office Visit [facility] Family & Internal Medicine [address] [address] Faith Frye, DORINA Establish Care (Discuss Medications); Imm/Inj (Tdap and Flu Shot) Social History Tobacco Use Types Packs/Day Years Used Date Smoking Tobacco: Every Day Cigarettes 0.3 20 Smokeless Tobacco: Never Tobacco Cessation:Ready to Q uit: No; Counseling Given: Yes Comments:provider to family and marriage counsellor Alcohol [...] Sign Reading Time Taken Comments Blood Pressure 126/82 05/23/2021 8:37 AM CDT Pulse 87 05/23/2021 8:37 AM CDT Temperature 36.9 ??C (98.5 ??F) 05/23/2021 8:37 AM CD T Respiratory Rate 18 05/23/2021 8:37 AM CDT Oxygen Saturation 98% 05/23/2021 8:37 AM CDT Inhaled Oxygen Concentration - - Weight 71.7 kg (158 lb) 05/23/2021 8:37 AM CDT Height 154.9 cm (5' 1 ) 05/23/2021 8:37 AM CDT Body Mass Index 29.85 05/23/2021 8:37 AM CDT documented in this encounter Patient Instructions * Patient Instructions* Faith Frye NP - 05/23/2021 8:40 AM CDT Patient Education Patient Education Yearly Physical for Adults About this topic Most people do not want to be sick. Having a checkup each year with your doctor is one way to help you stay healthy. You may need to see your doctor more or less often. How often you need to go to the doctor depends on your age. Your family and medical history also play a role in how often you needto go to the doctor. Going to see your doctor on a routine basis can help you find problems early or even before they start. This may make it easier to treat or cure your problem. General Your doctor will talk about many things during your checkup. Your doctor may ask about: ?? Your medical and family history. ?? All the drugs you are taking. Be sure to include all prescription, over the counter, and herbal supplements. Tell the doctor if you have any drug allergy. Bring a list of drugs you take with you. ?? How you are feeling and if you are having any problems. ?? Risky behaviors like smoking, drinking alcohol, using illegal drugs, not wearing seatbelts, having unprotected sex, etc. Your doctor will do a physical exam and may check your: ?? Height and weight ?? Blood pressure ?? Reflexes ?? Memory ?? Vision ?? Hearing Your doctor may order: ?? Lab tests ?? ECG to check your heart rhythm ?? X-rays ?? Tests or treatments based on your exam What lifestyle changes are needed? Your doctor may suggest you make changes to your lifestyle at this visit. The doctor may talk with you about being more active or lowering stress levels. Ask your doctor what you need to do. What drugs may be needed? Your doctor may order drugs or vaccines to protect you from illnesses. What changes to diet are needed? Talk to your doctor to see if any changes are needed to your diet. When do I need to call the doctor? Call your doctor if you need to learn about any test results. Together you can make a plan for morecare. Helpful tips ?? Make a list of questions for your doctor before you go. This will help you remember to ask aboutany concerns. Write down any answers from your doctor so you can look over them after your visit. ?? Tell your doctor about any changes in your body or health since your last visit. ?? Ask your doctor about any screening tests you need. Where can I learn more? [employer] http://familydoctor.org/familydoctor/en/prevention-wellness/staying-healthy/heal thy-living/tfclwsocyj-iqiuhcbp-xox-healthy-living.printerview.html Centers for Disease Control http://www.cdc.gov/family/checkup/ Last Reviewed Date 2018-11-08 Consumer Information Use and Disclaimer This information [...] right for you. Copyright Copyright ?? 2020 [employer]. and its affiliates and/or licensors. All rights reserved. Decrease Vyvance to 30 mg from 70 mg daily Start vistaril 25 mg prn for itching and anxiety Decrease citalopram to 5 mg daily Follow up in 2 weeks Karlie, Thank you for your visit. ?? We will call with any concerning results. If you have a [employer] account, your results will appear there. If not, we will mail a copy for your records. ?? Continue your current medications. ?? all medications ?? As you exit, please stop at the front end loader driver and schedule your follow-up appointment. ?? Call with any concerns. ?? Healthy adult recommendations: Focus on a healthy diet, with exercise as tolerated, targeting 30-60 minutes of exercise daily, at least 5 days per week. ?? Have a good day! documented in this encounter Progress Notes * Faith Frye NP - 05/23/2021 8:40 AM CDT Reason for Visit: Establish Care (Discuss Medications) and Imm/Inj (Tdap and Flu Shot) History of Present Illness: Karlie Ivory is a 46-year-old female here to establish care and for her annual exam. Pt. Reports that she has anxiety and situational depression. Would like to decrease her Vyvance and citalopram. 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 Negative for fatigue and fever. HENT: Negative. Eyes: Negative. Respiratory: Negative. Negative for cough and shortness of breath. Cardiovascular: Negative. Negative for chest pain. Gastrointestinal: Negative for abdominal pain. Endocrine: Negative. Genitourinary: Negative. Musculoskeletal: Negative. Negative for back pain. Skin: Positive for rash (with itching at times). Allergic/Immunologic: Negative. Negative for environmental allergies. Neurological: Negative. Hematological: Negative for adenopathy. Psychiatric/Behavioral: Positive for decreased concentration. Negative for suicidal ideas (Denies).The patient is nervous/anxious. Situational depression Medications: Current Outpatient Medications: ??? azelastine 0.1 % nasal spray, 1 spray in each nostril daily, Disp: 30 mL, Rfl: 0 ??? citalopram (CELEXA) 10 MG tablet, Take 0.5 tablets (5 mg total) by mouth daily., Disp: 30 tablet, Rfl: 1 ??? Eszopiclone 3 MG Tab, TAKE 1 TABLET BY MOUTH AT BEDTIME, Disp: 30 tablet, Rfl: 0 ??? hydrOXYzine (VISTARIL) 25 MG capsule, Take 1 capsule (25 mg total) by mouth daily as needed forItching., Disp: 30 capsule, Rfl: 0 ??? lisdexamfetamine Dimesylate 30 MG capsule, Take 1 capsule (30 mg total) by mouth every morning., Disp: 30 capsule, Rfl: 0 ??? Multiple Vitamin (MULTIVITAMIN ADULT OR), , Disp: , Rfl: ??? Vitamin D, Cholecalciferol, 25 MCG (1000 [...] Never Used ??? Tobacco comment: provider to family and marriage counsellor Substance and Sexual Activity ??? Alcohol use: [...] Gatherings with Friends and Family: ??? Attends Pentecostal Services: ??? Active Member of Clubs or Organizations: ??? Attends Club or Organization Meetings: ??? Marital Status: Intimate Partner Violence: ??? Fear of Current or Ex-Partner: ??? Emotionally Abused: ??? Physically Abused: ??? Sexually Abused: Family History Problem Relation Name Age of [...] normal. Mood and Affect: Mood is anxious. Speech: Speech is rapid and pressured. Behavior: Behavior is hyperactive. Behavior is cooperative. Comments: Flight of ideas Filed Vitals: 05/23/21 0837 BP: 126/82 Pulse: 87 Resp: 18 Temp: 98.5 ??F (36.9 ??C) SpO2: 98% Weight: 71.7 kg (158 lb) Height: 5' 1 (1.549 m) I spent 45 minutes today reviewing the patient's medical record, obtaining history, performing an exam, ordering medications, tests, and/or procedures, documenting in the medical record, referring and/or communicating with other health care providers, counseling and educating the patient/family/caregiver, reviewing and communicating test results and coordination of care. Assessment Encounter Diagnose(s) ICD-10-CM ICD-9-CM SNOMED CT(R) 1. Annual physical exam Z00.00 V70.0 PATIENT ENCOUNTER STATUS 2. Body mass index 29.0-29.9, adult Z68.29 V85.25 BODY MASS INDEX 25-29 - OVERWEIGHT 3. Attention deficit hyperactivity disorder (ADHD), combined type F90.2 314.01 ATTENTION DEFICIT HYPERACTIVITY DISORDER, COMBINED TYPE lisdexamfetamine Dimesylate 30 MG capsule 4. Itching L29.9 698.9 ITCHING hydrOXYzine (VISTARIL) 25 MG capsule 5. Seasonal allergies J30.2 477.9 SEASONAL ALLERGY 6. Depression with anxiety F41.8 300.4 MIXED ANXIETY AND DEPRESSIVE DISORDER citalopram (CELEXA) 10MG tablet 7. Vitamin D deficiency E55.9 268.9 VITAMIN D DEFICIENCY 8. Encounter for screening mammogram for malignant neoplasm of breast Z12.31 V76.12 PATIENT ENCOUNTER STATUS MG SCREENING LATISHA DIGI 9. Need for dulxipznly-uhxvzjj-qatzbzdeq (Tdap) vaccine Z23 V06.1 REQUIRES DIPHTHERIA, TETANUS AND PERTUSSIS VACCINATION [07552] Adacel (Tdap) 10. Need for immunization against influenza Z23 V04.81 NEEDS INFLUENZA IMMUNIZATION [95546] FLU VACC QUAD 6 MONTHS+ 0.5 ML (SINGLE DOSE SYRINGE FLUZONE, FLUARIX, FLULAVAL OR SINGLE DOSE VIAL FLUZONE) 11. Tobacco dependence F17.200 305.1 TOBACCO DEPENDENCE SYNDROME Recommendations and Plan: Decrease Vyvance to 30 mg from 70 mg daily Start vistaril 25 mg prn for itching and anxiety Decrease citalopram to 5 mg daily Advised to sign up for My Chart Follow up in 2 weeks for med changes 1. Annual physical exam Patient past medical, surgical, family history and social history updated. Allergies, immunizationsand medications updated. Also did discuss healthy lifestyle including exercising, dietary changes and safe sexual practices as well as safe habits common to patient age group including wearing seat belt when transporting in a vehicle and limiting alcohol and avoiding smoking/second hand smoking. 2. Body mass index 29.0-29.9, adult As above 3. Attention deficit hyperactivity disorder (ADHD), combined type Decrease to 30 mg daily - lisdexamfetamine Dimesylate 30 MG capsule; Take 1 capsule (30 mg total) by mouth every morning. Dispense: 30 capsule; Refill: 0 4. Itching Start vistaril as needed - hydrOXYzine (VISTARIL) 25 MG capsule; Take 1 capsule (25 mg total) by mouth daily as needed for Itching. Dispense: 30 capsule; Refill: 0 5. Seasonal allergies Continue astepro as needed 6. Depression with anxiety Decrease Celexa to 5 mg david;y 1/2 tab - citalopram (CELEXA) 10 MG tablet; Take 0.5 tablets (5 mg total) by mouth daily. Dispense: 30 tablet; Refill: 1 7. Vitamin D deficiency Continue otc 1000u daily 8. Encounter for screening mammogram for malignant neoplasm of breast - MG SCREENING LATISHA DIGI 9. Need for qmyfdqtspr-ctberoh-wbnvscsqw (Tdap) vaccine - [81920] Adacel (Tdap) 10. Need for immunization against influenza - [05319] FLU VACC QUAD 6 MONTHS+ 0.5 ML (SINGLE DOSE SYRINGE FLUZONE, FLUARIX, FLULAVAL OR SINGLE DOSE VIAL FLUZONE) - 11. Tobacco dependence Discussed patient??? options for quitting smoking. Discussed the risks of continuing to smoke and also the benefits of quitting smoking; encouraged the patient to look 1-2 months into the future and decide on a quit date. Informed of the risks of smoking and the health consequences. Patient unwilling to quit, will continue to encourage. FAITH FRYE NP 05/23/2021 10:44 AM documented in this encounter Plan of Treatment Upcoming Encounters Date Type Department Care Team (Late st Contact Info) Description 09/08/2024 10:10 AM FIREWORKS MAKER Office Visit [facility] Family Medicine - [place] [address] [facility] [address] [place] [id number] Samantha Sanders MD [address] [place] [id number] Scheduled Orders Name Type Priority Associated Diagnoses Orde r Schedule MG SCREENING LATISHA DIGI MAMMO Routine Encounter for screening mammogram for malignant neoplasm of breast Ordered: 05/23/2021 documented as of this encounter Visit Diagnoses Diagnosis Annual physical exam- Primary Routine general medical examination at a health care facility Body mass index 29.0-29.9, adult Body Mass Index 29.0-29.9, adult Attention deficit hyperactivity disorder (ADHD), combined type Itching Unspecified pruritic disorder Seasonal allergies Allergic rhinitis, cause unspecified Depression with anxiety Dysthymic disorder Vitamin D deficiency Unspecified vitamin D deficiency Encounter for screening mammogram for malignant neoplasm of breast Other screening mammogram Need for nrsghsukkv-fasntqt-zvzluujkk (Tdap) vaccine Need for prophylactic vaccination with combined xojkgeicnm-vhydxti-cmngyscdw (DTP) vaccine Need for immunization against influenza Need for prophylactic vaccination and inoculation against influenza Tobacco dependence Tobacco use disorder documented in this encounter Additional Health Concerns Assessment Noted Time PHQ-9 Depression Total Score: 2 05/23/20 21 8:38 AM CDT documented as of this encounter Care Teams Automatic Buffing Wheel Former Relationship Specialty Start Date End Date Faith Frye, CD STORAGE AND MATERIALS MAKE UP HELPER PCP - General NURSE PRACTITIONER 05/23/21 04/20/22 documented as of this encounter
--- OUTSIDE RECORDS SUMMARY | 2024-07-24 00:48 | XMS_ITS | Encounter Summary ---
Author Organization [facility] Address [address] [place] [address]. [place], [place] [address] [place] [address] Care Team Providers Care Rim Fire Charger Operator Name Role Phone Vianey Meyer EMANI Primary Care Provider [phone] Reason for Visit * Reason Comments Rash on face started last week. Patient notes she has been using a face defuzzer and thinks she might have gotten some bacterial infection from it Encounter Details Date Type Department Care Team (Late st Contact Info) Description 03/05/2020 12:00 PM CDT Office Visit [facility] Family & Internal Medicine [id number] [place] [address] Gale Dempsey APNP [address] [place] [address] Rash (on face started last week. Patient notes she has been using a face defuzzer and thinks she might have gotten some bacterial infection from it) Social History Tobacco Use Types Packs/Day Years [...] have Coronavirus / COVID-19? No / Unsure 03/05/2020 11:55 AM CDT documented as of this encounter Last Filed Vital Signs Vital Sign Reading Time Taken Comments Blood Pressure 118/60 03/05/2020 12:19 PM CDT Pulse 89 03/05/2020 12:19 PM CDT Temperature - - Respiratory Rate 14 03/05/2020 12:19 PM CDT Oxygen Saturation 98% 03/05/2020 12:19 PM CDT Inhaled Oxygen Concentration - - Weight 66.7 kg (147 lb) 03/05/2020 12:19 PM CDT Height 152.4 cm (5') 03/05/2020 12:19 PM CDT Body Mass Index 28.71 03/05/2020 12:19 PM CDT documented in this encounter Progress Notes * CHACORTA Cobb - 03/05/2020 12:00 PM CDT Images from the original note were not included. [facility] OFFICE VISIT Reason for Visit: Rash (on face started last week. Patient notes she has been using a face defuzzer and thinks she might have gotten some bacterial infection from it) History of Present Illness: Pt here today with c/o rash to her face that started last week. She notes she used a de fuzzer /small razor on her face and thinks she may have gotten an infection from this. This has happened a couple of times in the past after using same razor/hair remover. She notes she has had some similar issues on her back, but none today. She notes over the past coupleof days---symptoms have started to clear, But she wanted to be seen regardless. Wounds are over several lon of face. Appear acne like. Drain a whitish substance at times and have no odor. She denies any fever. She denies any fever or chills. She is also due for her routine fasting labs and would like these ordered as she needs to follow upwith her PCP regarding lab review and ADHD follow up. ROS: Review of Systems Constitutional: Negative for chills, fever and malaise/fatigue. HENT: Negative for congestion, sinus pain and sore throat. Respiratory: Negative for cough and shortness of breath. Cardiovascular: Negative for chest pain and palpitations. Gastrointestinal: Negative for abdominal pain, diarrhea, nausea and vomiting. Skin: Positive for rash. Negative for itching. Neurological: Negative for dizziness and headaches. Psychiatric/Behavioral: The patient is nervous/anxious. Medications: Current Outpatient Medications: ??? amphetamine-dextroamphetamine XR (ADDERALL XR) 20 MG 24 hr capsule, Take 1 capsule (20 mg total) by mouth every morning., Disp: 30 capsule, Rfl: 0 ??? azelastine 0.1 % nasal spray, 2 sprays by Nasal route 2 (two) times daily. Use in each nostril as directed, Disp: 30 mL, Rfl: 0 ??? buPROPion XL 300 MG 24 hr tablet, Take 1 tablet (300 mg total) by mouth daily., Disp: 90 tablet, Rfl: 3 ??? busPIRone 10 MG tablet, Take 1 tablet (10 mg total) by mouth 2 (two) times daily. (Patient taking differently: Take 10 mg by mouth 2 (two) times daily as needed. ), Disp: 60 tablet, Rfl: 11 ??? dicyclomine 10 MG capsule, Take 10 mg by mouth as needed. , Disp: , Rfl: ??? Eszopiclone (LUNESTA) 3 MG Tab, Take 3 mg by mouth nightly at bedtime. Take immediately before bedtime, Disp: 30 tablet, Rfl: 2 ??? mupirocin (BACTROBAN) 2 % ointment, Apply topically 2 (two) times daily for 7 days., Disp: 22 g, Rfl: 0 Allergies: No Known Allergies Medical History: Past [...] resource strain: Not on file ??? Food insecurity: Worry: Not on file Inability: Not on file ??? Transportation needs: Medical: Not on file Non-medical: Not on file Tobacco Use ??? Smoking status: Current Every Day Smoker Packs/day: 0.25 Years: 20.00 Pack years: 5.00 ??? Smokeless tobacco: Never Used Substance and Sexual Activity ??? Alcohol use: Yes Frequency: 2-4 times a month ??? Drug use: No ??? Sexual activity: Not Currently control/protection: Surgical Lifestyle ??? Physical activity: Days per week: Not on file Minutes per session: Not on file ??? Stress: Not on file Relationships ??? Social connections: Talks on phone: Not on file Gets together: Not on file Attends hoahaoism service: Not on file Active member of club or organization: Not on file Attends meetings of clubs or organizations: Not on file Relationship status: Not on file ??? Intimate partner violence: Fear of current or ex partner: Not [...] rate, regular rhythm and normal heart sounds. Pulmonary/Chest: Effort normal and breath sounds normal. No stridor. No respiratory distress. She has no wheezes. Musculoskeletal: Normal range of motion. She exhibits no deformity. Neurological: She is alert and oriented to person, place, and time. Gait normal. Skin: Skin is warm and dry. Rash noted. There is erythema. No pallor. Multiple raised erythematous lesions noted to face, some with firm lump noted underneath. No drainage or odor noted at today's visit. Psychiatric: Mood and affect normal. Nursing note and vitals reviewed. Filed Vitals: 03/05/20 1219 BP: 118/60 Pulse: 89 Resp: 14 SpO2: 98% Weight: 66.7 kg (147 lb) Height: 5' (1.524 m) Labs: Labs Reviewed Diagnoses/Impression: 1. Rash mupirocin (BACTROBAN) 2 % ointment CBC W/DIFF AUTOMATED 2. General medical examination CBC W/DIFF AUTOMATED LIPID PANEL TSH W/REFLEX VITAMIN D, 25 OH URINALYSIS WI REFLEX TO CULTURE URIC ACID BLOOD COMPREHENSIVE METABOLIC PANEL 3. Vitamin D deficiency VITAMIN D, 25 OH 4. Skin infection CBC W/DIFF AUTOMATED Recommendations and Plan: 1. Rash - mupirocin (BACTROBAN) 2 % ointment; Apply topically 2 (two) times daily for 7 days. Dispense: 22 g; Refill: 0 - CBC W/DIFF AUTOMATED; Future 2. General medical examination - CBC W/DIFF AUTOMATED; Future - LIPID PANEL; Future - TSH W/REFLEX; Future - VITAMIN D, 25 OH; Future - URINALYSIS WI REFLEX TO CULTURE; Future - URIC ACID BLOOD; Future - COMPREHENSIVE METABOLIC PANEL; Future 3. Vitamin D deficiency - VITAMIN D, 25 OH; Future 4. Skin infection - CBC W/DIFF AUTOMATED; Future Pt treated with mupirocin. Advised of risks, benefits and side effects. She is to let me know if there is no improvement in symptoms in the next couple of days. Routine fasting labs ordered and she is to follow up with her PCP. Orders Placed This Encounter ??? CBC W/DIFF AUTOMATED ??? LIPID PANEL ??? TSH W/REFLEX ??? VITAMIN D, 25 OH ??? URINALYSIS WI REFLEX TO CULTURE ??? URIC ACID BLOOD ??? COMPREHENSIVE METABOLIC PANEL ??? mupirocin (BACTROBAN) 2 % ointment Cannot display discharge medications since this is not an admission. PCP: CHACORTA Cobb 03/10/2020 documented in this encounter Plan of Treatment Upcoming Encounters Date Type Department Care Team (Late st Contact Info) Description 09/08/2024 10:10 AM QUALITY ASSURANCE TEST PROGRAM MANAGER Office Visit [facility] Family Medicine - [place] [address] [facility] [address] [place] [address] Samantha Sanders MD [address] [facility] [address] [place] [address] documented as of this encounter Visit Diagnoses Diagnosis Rash- Primary Rash and other nonspecific skin eruption General medical examination Unspecified general medical examination Vitamin D deficiency Unspecified vitamin D deficiency Skin infection Unspecified local infection of skin and subcutaneous tissue documented in this encounter Additional Health Concerns Assessment Noted Time PHQ-9 Depression Total Score: 7 01/18/20 19 12:34 PM CDT documented as of this encounter Care Teams Rim Fire Charger Operator Relationship Specialty Start Date End Date Vianey Meyer FNP [address] [place] [id number] PCP - General Nurse Practitioner Family 06/21/1805/22/21 documented as of this encounter
--- OUTSIDE RECORDS SUMMARY | 2024-07-24 00:48 | XMS_ITS | Encounter Summary ---
Author Organization [facility] Address [address] [place] [address]. [place], [place] [address] [place] [address] Care Team Providers Care Oracle Soa Architect Name Role Phone Vianey Meyer Primary Care Provider [phone] Reason for Visit * Reason Onset Date Comments Refill Request 12/06/2020 Encounter Details Date Type Department Care Team (Late st Contact Info) Description 12/06/2020 Telephone [facility] Family & Internal Medicine [id number] [place] [address] Vianey Meyer FNP [facility] [place] [address] Refill Request Social History Tobacco Use Types [...] st Contact Info) Description 09/08/2024 10:10 AM REFRIGERATION MECHANIC HELPER Office Visit [facility] Family Medicine [facility] [address] [address] Samantha Sanders MD [address] [place] [address] documented as of this encounter Visit Diagnoses Not on filedocumented in this encounter Additional Health Concerns Assessment Noted Time PHQ-9 Depression Total Score: 7 01/18/20 19 12:34 PM CDT documented as of this encounter Care Teams Oracle Soa Architect Relationship Specialty Start Date End Date Vianey Meyer FNP [facility] [place] [address] PCP - General Nurse Practitioner Family 06/21/1805/22/21 documented as of this encounter
--- OUTSIDE RECORDS SUMMARY | 2024-07-24 00:48 | XMS_ITS | Encounter Summary ---
Author Organization [facility] Address [address] [place] [address]. [place], [place] [id number] [place], [place] [id number] Care Team Providers Care Real Estate Salesperson Name Role Phone Vianey Meyer EMANI Primary Care Provider [phone] Reason for Visit * Reason Onset Date Comments UTI 02/15/2021 Encounter Details Date Type Department Care Team (Late st Contact Info) Description 02/15/2021 Telephone [facility] Family & Internal Medicine [facility] [address] [place] [address] Gale Dempsey APNP [address] [place], [place] [id number] UTI Social History Tobacco Use Types Packs/Day Years Used Date Smoking Tobacco: Every Day Cigarettes 0.3 20 Smokeless Tobacco: Never 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 * CHACORTA Cobb - 02/15/2021 2:30 PM CDT Can we send a lab order over for a lab closer to her? * Claudia Singer MA - 02/15/2021 10:57 AM CDT Pain in right side low back, bloating (gassy feeling), pain in lower abdomen when urinated. Patientis requesting an rx for UTI, she does not have a car to provide a urine or be seen in office. Onset of symptoms: Thursday night OTC medication tried: Tylenol for pain Allergies: KNDA YOSEPH [facility]# [phone] documented in this encounter Plan of Treatment Upcoming Encounters Date Type Department Care Team (Late st Contact Info) Description 09/08/2024 10:10 AM CUSTOMER PROGRAM MANAGER Office Visit [facility] Family Medicine - [place] [address] [place] [phone] Samantha Sanders MD [address] [place] [phone] documented as of this encounter Visit Diagnoses Not on filedocumented in this encounter Additional Health Concerns Assessment Noted Time PHQ-9 Depression Total Score: 2 12/19/19 21 4:22 PM CDT documented as of this encounter Care Teams Real Estate Salesperson Relationship Specialty Start Date End Date Vianey Meyer FNP [address] [place] [phone] PCP - General Nurse Practitioner Family 06/21/1805/22/21 documented as of this encounter
--- OUTSIDE RECORDS SUMMARY | 2024-07-24 00:48 | XMS_ITS | Encounter Summary ---
Author Organization [facility] Address [address] [place] [address]. [place], [place] [id number] [place], [place] [id number] Care Team Providers Care Administrative Representative Name Role Phone Suzie Coulter Primary Care Provider [phone] Reason for Visit * Reason Onset Date Comments Refill Request 02/20/2020 Encounter Details Date Type Department Care Team (Late st Contact Info) Description 02/20/2020 Telephone [facility] Medical [facility] Family & Internal Medicine [address] [id number] [place] [address] Suzie Coulter FNP [facility] [place], [place] [phone] Refill Request Social History Tobacco Use Types [...] Progress Notes * Alanna Almaguer MA - 02/20/2020 3:13 PM CDT Refill request received from Pharmacy Last visit with SUZIE COULTER in FAMILY PRACTICE was on[facility] 11/04/2019 in [facility] No future appointments. [id number] - [place], [place] - [address] [facility] [address] [facility] [id number] Current Outpatient Medications: ??? amphetamine-dextroamphetamine (ADDERALL) 10 MG tablet, Take 1 tablet (10 mg total) by mouth 3 (three) times daily., Disp: 90 tablet, Rfl: 0 ??? amphetamine-dextroamphetamine (ADDERALL) 20 MG tablet, Take 1 tablet (20 mg total) by mouth 2 (two) times daily., Disp: 60 tablet, Rfl: 0 ??? azelastine 0.1 % [...] before bedtime, Disp: 30 tablet, Rfl: 2 documented in this encounter Plan of Treatment Upcoming Encounters Date Type Department Care Team (Late st Contact Info) Description 09/08/2024 10:10 AM COMMUNITY OUTREACH MANAGER Office Visit [facility] Family Medicine - [place] [address] [place] [phone] Samantha Sanders MD [address] [place] [phone] documented as of this encounter Visit Diagnoses Diagnosis Insomnia due to other mental disorder documented in this encounter Additional Health Concerns Assessment Noted Time PHQ-9 Depression Total Score: 7 01/18/20 19 12:34 PM CDT documented as of this encounter Care Teams Administrative Representative Relationship Specialty Start Date End Date Suzie Coulter FNP [address] [place] [id number] PCP - General Nurse Practitioner Family 06/21/1805/22/21 documented as of this encounter
--- OUTSIDE RECORDS SUMMARY | 2024-07-24 00:48 | XMS_ITS | Encounter Summary ---
Author Organization [facility] Address [address] [place] [address]. [place], [place] [address] [place] [id number] Care Team Providers Care Glue Wheel Operator Name Role Phone Vianey Meyer EMANI Primary Care Provider [phone] Reason for Referral * Imaging (Emergency) - Closed Specialty Diagnoses / Procedures Referred By North t Referred To Contact RADIOLOGY Procedures CT ABD+PEL W IV CON ONLY Zeus Campos MD,PHD [address] [place] [address] Phone: tel: fax: Referral ID Status Reason Start Date Expiration Date Visits Re quested Visits Authorized [id number] Closed 02/15/2021 03/18/2022 1 1 Reason for Visit * Reason Comments Back Pain Abdominal Pain Leg Swelling Encounter Details Date Type Department Care Team (Late st Contact Info) Description 02/15/2021 4:29 PM CDT - 02/15/2021 8:32 PM CDT Emergency Health system Emergency Room [address] [place] [address] Zeus Campos MD,PHD [address] [place] [address] Back Pain; Abdominal Pain; Leg Swelling Discharge Disposition: Home or Self Care (Routine Discharge) Social History Tobacco Use Types Packs/Day Years Used Date Smoking Tobacco: Every Day Cigarettes 0.3 20 Smokeless Tobacco: Never 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 No / Unsure 02/15/2021 3:42 PM CDT documented as of this encounter Last Filed Vital Signs Vital Sign Reading Time Taken Comments Blood Pressure 108/44 02/15/2021 4:40 PM CDT Pulse 71 02/15/2021 4:40 PM CDT Temperature 36.5 ??C (97.7 ??F) 02/15/2021 4:40 PM CD T Respiratory Rate 20 02/15/2021 4:40 PM CDT Oxygen Saturation 100% 02/15/2021 4:40 PM CDT Inhaled Oxygen Concentration - - Weight - - Height - - Body Mass Index - - documented in this encounter Discharge Instructions * Discharge Instructions* Vicky Duque MD - 02/15/2021 8:19 PM CDT Follow up as discussed. Return for any concerns. * Attachments The following attachments cannot be sent through Care Everywhere. * Flank Pain Discharge Instructions (Yakut) documented in this encounter Medications at Time of Discharge Multiple Vitamin (MULTIVITAMIN ADULT OR) Take by mouth daily. 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 30 tablet 2 12/18/2020 lisdexamfetamine 50 MG capsuleIndications :Attention deficit hyperactivity disorder (ADHD), combined type Take 1 capsule (50 mg total) by mouth every morning. 30 capsule 02/05/2021 1 PARoxetine (PAXIL) 10 MG tabletIndications: Perimenopausal symptoms Take 1 tablet (10 mg total) by mouth every morning. 30 tablet 1 10/22/2020 1 Vitamin D, Cholecalciferol, 25 MCG (1000 UT) Cap Take by mouth daily. 2 documented as of this encounter ED Notes * Zeus Campos MD,PHD - 02/15/2021 5:37 PM CDT EMERGENCY DEPARTMENT ENCOUNTER Chief Complaint Chief Complaint Patient presents with ??? Back Pain ??? Abdominal Pain ??? Leg Swelling History of Present Illness Provider at Bedside Date/Time Event User Comments 02/15/21 1720 Provider at Bedside Assessing Patient ZEUS CAMPOS Right lower back pain for 2 days, that is since migrated to the right lower quadrant of the abdomenwithin the past day. Is described as dull. It is somewhat alleviated by position. The patient additionally complains of fatigue for several months. She attributes this partially to stress due to the recent loss of her job and other life stressors. She additionally complains of intermittent swelling to her bilateral lower extremities for the sametime period. Medical History ALLERGIES: No Known Allergies MEDICATIONS: Prior to Admission medications Medication Sig Start Date End Date Taking? Authorizing Provider Eszopiclone 3 MG Tab TAKE ONE TABLET BY MOUTH IMMEDIATELY BEFORE BEDTIME. 12/18/20 EMANI Crowder lisdexamfetamine 50 MG capsule Take 1 capsule (50 mg total) by mouth every morning. 02/05/21 EMANI Crowder Multiple Vitamin (MULTIVITAMIN ADULT OR) Doc Abstract PARoxetine (PAXIL) 10 MG tablet Take 1 tablet (10 mg total) by mouth every morning. 10/22/20 EMANI Crowder Vitamin D, Cholecalciferol, 25 MCG (1000 UT) Cap Doc Abstract PAST MEDICAL HISTORY: Past Medical History: Diagnosis Date ??? Allergic rhinitis 05/10/2018 ??? Bowel obstruction (CMS/HCC) ??? Ulcerative (chronic) enterocolitis, other complication (CMS/HCC) ??? Ulcerative colitis (CMS/HCC) 04/15/2018 PAST SURGICAL HISTORY: Past Surgical History: Procedure Laterality Date ??? APPENDECTOMY ??? APPENDECTOMY ??? BREAST LUMPECTOMY Left ??? HERNIA REPAIR ??? HYSTERECTOMY FAMILY HISTORY: Family History Problem Relation Name Age of Onset ??? Heart Mother ??? Heart Father ??? Heart Paternal Grandfather ??? Aneurysm Paternal Grandfather ??? Cancer Paternal Grandfather colon SOCIAL HISTORY: Social History Tobacco Use ??? Smoking status: Current Every Day Smoker Packs/day: 0.25 Years: 20.00 Pack years: 5.00 ??? Smokeless tobacco: Never Used ??? 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 Alcohol use: Yes Comment: 1 glass of wine a day ??? Drug use: No Review of Systems Constitutional: Negative for chills and fever. Respiratory: Negative for cough and shortness of breath. Cardiovascular: Negative for chest pain Gastrointestinal: See HPI Genitourinary: POSITIVE for dysuria Musculoskeletal: See HPI, negative for joint swelling or extremity injury Neurological: Negative for paraesthesias, negative for focal weakness, negative for headache Integumentary: Negative for rash or wounds All other systems reviewed and are negative except as in HPI and as noted above Physical Exam Filed Vitals: 02/15/21 1640 BP: 108/44 Pulse: 71 Resp: 20 Temp: 97.7 ??F (36.5 ??C) TempSrc: Temporal SpO2: 100% CONSTITUTIONAL: Patient is awake, alert, in no acute distress, conversant HEAD AND FACE: Normocephalic, atraumatic EYES: Normal sclera, extraocular motions grossly normal NECK: Supple, no obvious asymmetry CARDIOVASCULAR: RRR, normal S1-S2, no clicks murmurs rubs or gallops are appreciated RESPIRATORY: No respiratory distress or tachypnea, clear to auscultation bilaterally without rales,rhonchi, wheezes ABDOMEN: Mild suprapubic and right lower quadrant tenderness without rebound or guarding BACK: No tenderness of the lumbar spine, localizes to the lateral back, right flank NEUROLOGIC: GCS 15, CN2-12 grossly intact, moves all extremities EXTREMITIES: Warm, no edema Diagnostic Studies / Procedures LABORATORY STUDIES: Results for orders placed or performed during the hospital encounter of 07/30/21 CBC W/DIFF AUTOMATED Result Value Ref Range WBC 8.0 4.4 - 11.0 x10'3/uL RBC 3.92 (L) 4.50 - 5.10 x10'6/uL HGB 12.5 12.3 - 15.3 G/DL HCT 37.9 35.9 - 44.6 % MCV 96.7 (H) 80.0 - 96.0 FL MCH 31.9 (H) 25.3 - 30.9 PG MCHC 33.0 31.0 - 34.1 G/DL RDW 12.8 12.4 - 15.1 % PLT 343 151 - 353 x10'3/uL MPV 9.4 (L) 9.6 - 12.0 FL RBC MORPHOLOGY NORMAL PLT MORPH. NORMAL WBC MORPHOLOGY NORMAL LYMPHOCYTES 21.3 15.8 - 45.0 % NEUTROPHILS 69.4 42.1 - 71.9 % MONOCYTES 7.2 5.7 - 12.5 % EOSINOPHILS 1.1 0.0 - 5.6 % BASOPHILS 0.6 0.0 - 1.3 % ABS. NEUTROPHILS TOTAL 5.52 1.40 - 6.00 x10'3/uL IMMATURE GRANS 0.4 0.0 - 0.5 % ABS. LYMPHOCYTES 1.69 0.80 - 4.70 x10'3/uL COMPREHENSIVE METABOLIC PANEL Result Value Ref Range GLUCOSE 83 70 - 99 MG/DL BUN 11 7 - 18 MG/DL CREATININE S/P/B 0.87 0.55 - 1.02 MG/DL SODIUM 144 136 - 145 MMOL/L POTASSIUM 4.1 3.5 - 5.1 MMOL/L CHLORIDE S/P/B 106 100 - 108 MMOL/L CO2 28.7 21 - 32 MMOL/L CALCIUM 9.1 8.5 - 10.1 MG/DL BILIRUBIN TOTAL S/P/B 0.3 0.2 - 1.2 MG/DL TOTAL PROTEIN S/P/B 6.6 6.4 - 8.2 G/DL ALBUMIN S/P/B 3.5 3.4 - 5.0 G/DL AST 20 15 - 37 U/L ALT 20 14 - 55 U/L ALKALINE PHOSPHATASE S/P/B 97 50 - 136 U/L ANION GAP 9.3 5 - 15 MMOL/L BUN CREATININE RATIO 12.6 6 - 26 A/G RATIO 1.1 1.0 - 2.0 RATIO eGFR Non-Afr. Amer. 80 (L) >90 ML/MIN/1.73 M2 eGFR Afr. Amer. >90 >90 ML/MIN/1.73 M2 MAGNESIUM Result Value Ref Range MAGNESIUM 3.3 (H) 1.8 - 2.4 MG/DL TROPONIN, QUANT Result Value Ref Range TROPONIN I <0.017 0.000 - 0.056 ng/mL. PRO-BRAIN NATRIURETIC PEPTIDE Result Value Ref Range Pro-B TYPE NATRIURETIC PEPTIDE 100 <125 PG/ML PHOSPHORUS, INORGANIC PHOSPHATE Result Value Ref Range PHOSPHORUS 5.0 (H) 2.5 - 4.9 MG/DL TSH W/REFLEX Result Value Ref Range TSH 2.320 0.358 - 3.74 uIU/ML THYROXINE, FREE (FT4) Result Value Ref Range FREE T4 0.99 0.76 - 1.46 NG/DL URINALYSIS, AUTO, COMPLETE Result Value Ref Range COLOR (U) YELLOW TRANSPARENCY CLEAR Specific [place] (U) <1.005 1.000 - 1.030 U PH 6.0 5.0 - 9.0 LEUKOCYTE ESTERASE NEGATIVE NEGATIVE NITRITES NEGATIVE NEGATIVE PROTEIN (U) NEGATIVE NEGATIVE URINE GLUCOSE NEGATIVE NEGATIVE U KETONES NEGATIVE NEGATIVE BILIRUBIN (U) NEGATIVE NEGATIVE BLOOD TRACE (A) NEGATIVE WBC/HPF NONE SEEN 0 - 5 /HPF RBC/HPF 0-5 0 - 5 /HPF EPI/HPF MANY /HPF CULTURE & SENSITIVITY INDICATED? CULTURE IS NOT INDICATED TEST URINE Result Value Ref Range Specific [place] (U) <1.005 PREG TEST NEGATIVE NEGATIVE IMAGING STUDIES CT ABD+PEL W IV CON ONLY (Results Pending) ED Course / Medical Decision Making Patient presenting multiple complaints of varying chronicities. In the differential diagnosis I considered anemia or other hematologic abnormality, electrolyte derangement, metabolic derangement, liver dysfunction, renal dysfunction, thyroid dysfunction With regards to the patient's back and abdominal pain, I considered, Biliary tract pathology including cholecystitis cholangitis choledocholithiasis and symptomatic cholelithiasis, pancreatitis, hollow viscus obstruction, hollow viscus rupture, intra-abdominal infections including appendicitis and d iverticulitis, urinary tract infection, nephrolithiasis I reviewed the patient's labs, which are unremarkable, as above I interpreted the patient's pulse oximeter at rest, which is 100% on room air, which is normal and determined that this patient is not hypoxic I interpreted the patient's quality assurance monitor body as showing a sinus rhythm and hemodynamic stability Clinical Impression Flank pain (Primary) Malaise Disposition: Signed out to the oncoming physician, disposition pending radiology's interpretation of the patient's CT of the abdomen and pelvis. If CT shows no pathology requiring immediate medical or surgical intervention, patient is stable for discharge home. Zeus Campos MD,PHD 02/15/211911 * Kaur Zapata RN - 02/15/2021 4:36 PM CDT For several months she has noticed swelling in her legs, [place] and [place], the next day she woke up had really bad lower right back pain, has had before but never this bad, cannot lay on that side or touch it, pain in mid abdomen just above pubic bone, started feeling really out of it, legs felt heavy, ankles swelling. States she just does not feel right. documented in this encounter Plan of Treatment Upcoming Encounters Date Type Department Care Team (Late st Contact Info) Description 09/08/2024 10:10 AM TRUST OFFICER Office Visit [facility] - [place] [address] [place] [address] Samantha Sanders MD [address] [place] [address] [phone] documented as of this encounter Procedures Procedure Name Priority Date/Time Associated Diagnosis Comments CT ABD+PEL W CON STAT 02/15/2021 6:59 PM CDT ECG 12-LEAD STAT 02/15/2021 5:40 PM CDT TSH W/REFLEX STAT 02/15/2021 5:00 PM CDT PRO-BRAIN NATRIURETIC PEPTIDE STAT 02/15/2021 5:00 PM CDT TEST URINE STAT 02/15/2021 5:00 PM CDT URINALYSIS, AUTO, COMPLETE STAT 02/15/2021 5:00 PM CDT COMPREHENSIVE METABOLIC PANEL STAT 02/15/2021 5:00 PM CDT CBC W/DIFF AUTOMATED STAT 02/15/2021 5:00 PM CDT THYROXINE, FREE (FT4) STAT 02/15/2021 5:00 PM CDT TROPONIN, QUANT STAT 02/15/2021 5:00 PM CDT PHOSPHORUS, INORGANIC PHOSPHATE STAT 02/15/2021 5:00 PM CDT MAGNESIUM STAT 02/15/2021 5:00 PM CDT documented in this encounter Results * CT ABD+PEL W IV CON ONLY (02/15/2021 6:59 PM CDT) Anatomical Region Laterality Modality Abdomen Computed Tomogra phy 02/15/2021 7:38 PM CDT Impressions 02/15/2021 7:48 PM CDT FINDINGS AND IMPRESSION: Radiation dose reduction technique [...] secondary to a gynecological process. Referred By: ZEUS CAMPOS Interpreted By: Valente Valle, 02/15/2021 7:38 PM Narrative 02/15/2021 7:48 PM CDT PROCEDURE: CT ABD+PEL W CON ??02/15/2021 6:59 PM HISTORY: RLQ abdominal pain, appendicitis suspected (Age >= 14y) ?? . Procedure Note Zheng Valle MD - 02/15/2021 PROCEDURE: CT ABD+PEL W CON 02/15/2021 6:59 PM HISTORY: RLQ abdominal pain, appendicitis suspected (Age >= 14y) . FINDINGS AND IMPRESSION: Radiation dose reduction technique was utilized. COMPARISON: No comparison. CONTRAST:75 cc of iodinated intravenous contrast FINDINGS: Multiple helically acquired CT images are obtained through the abdomen andpelvis following the intravenous administration of contrast. The lung bases are clear. The liver, gallbladder, spleen, pancreas,adrenals and kidneys are unremarkable. The urinary bladder is unremarkable. There is free fluid within the deeppelvis. The anterior abdominal wall and subcutaneous fat is normal. There areminimal degenerative changes of the lumbar spine. The appendix is not seen. There are metallic clips in the region of thedistal cecum near the appendix. There is no mesenteric nor retroperitoneal lymphadenopathy. There islevoscoliosis of the thoracolumbar junction. The vascular structures are within normal limits. IMPRESSION: There is some nonspecific fluid within the deep pelvis. This is believedto be secondary to a gynecological process. Referred By: ZEUS CAMPOS Interpreted By: Valente Valle, 02/15/2021 7:38 PM us Zeus Campos MD,PHD CT Final Resu lt * ECG 12 lead (02/15/2021 5:40 PM CDT) 02/15/2021 5:40 PM CDT Narrative [facility] RAD - 02/15/2021 8:37 PM CDT ?[facility] ? Test Date: ?2021-02-15 Pat Name: ? KEELEY SCHNEIDEWIND ?Department: ? Room: ? TG1TG1 Gender: ? Female ? Patient Admitting Representative: ?? : ?1975 ? Requested By: ZEUS ANDRES Order Number: [id number] ? Reading MD: ?? Anil Philip ? Measurements Intervals ?[place] ? Rate: ? 66 ? P: ?42 IN: ? 175 ?QRS: ?37 QRSD: ? 85 ? T: ?12 QT: ? 385 ? QTc: ?406 ? Interpretive Statements SINUS RHYTHM WITH SINUS ARRHYTHMIA No previous ECG available for comparison Procedure Note Anil Philip MD - 02/15/2021 [facility] Test Date: 2021-02-15 Pat Name: KEELEY IVORY Department: Room: [facility] Gender: Female Patient Admitting Representative: : 1975 Requested By: ZESU CAMPOS Order Number: [id number] Reading MD: Anil Philip Measurements Intervals [place] Rate: 66 P: 42 IN: 175 QRS: 37 QRSD: 85 T: 12 QT: 385 QTc: 406 Interpretive Statements SINUS RHYTHM WITH SINUS ARRHYTHMIA No previous ECG available for comparison us Zeus Campos MD,PHD ECG ORDERABLES Final Resu lt Performing Organization Address [facility]/State/[facility] Co de Phone Number [facility] RAD * TEST URINE (02/15/2021 5:00 PM CDT) SPECIFIC GRAVITY (U) <1.005 02/15/2021 6:08 PM CDT [facility] PREG TEST NEGATIVE NEGATIVE 02/15/2021 6:08 PM CDT [facility] URINE SPECIMEN FROM URETHRA / Unknown 02/15/2021 5:00 PM CDT us Zeus Campos MD,PHD URINE ORDERABLES Final Res ult [facility] [address] [place] [address], [place] [phone] * (ABNORMAL) URINALYSIS, AUTO, COMPLETE (02/15/2021 5:00 PM CDT) COLOR (U) YELLOW 02/15/2021 6:07 PM CDT [facility] TRANSPARENCY CLEAR 02/15/2021 6:07 PM CDT [facility] SPECIFIC GRAVITY (U) <1.005 1.000 - 1.030 02/15/2021 6:07 PM CDT [facility] U PH 6.0 5.0 - 9.0 02/15/2021 6:07 PM CDT [facility] LEUKOCYTES (U) NEGATIVE NEGATIVE 02/15/2021 6:07 PM CDT [facility] NITRITES NEGATIVE NEGATIVE 02/15/2021 6:07 PM CDT [facility] PROTEIN (U) NEGATIVE NEGATIVE 02/15/2021 6:07 PM CDT [facility] URINE GLUCOSE NEGATIVE NEGATIVE 02/15/2021 6:07 PM CDT [facility] KETONES MG/DL (U) NEGATIVE NEGATIVE 02/15/2021 6:07 PM CDT [facility] BILIRUBIN (U) NEGATIVE NEGATIVE 02/15/2021 6:07 PM CDT [facility] BLOOD (U) TRACE(A) NEGATIVE 02/15/2021 6:07 PM CDT [facility] WBC/HPF NONE SEEN 0 - 5 /HPF 02/15/2021 6:07 PM CDT [facility] RBC/HPF 0-5 0 - 5 /HPF 02/15/2021 6:07 PM CDT [facility] EPI/HPF MANY /HPF 02/15/2021 6:07 PM CDT [facility] CULTURE & SENSITIVITY INDICATED? CULTURE IS NOT INDICATED 02/15/2021 6:07 PM CDT [facility] URINE SPECIMEN OBTAINED BY CLEAN CATCH PROCEDURE / Unknown 02/15/2021 5:00 PM CDT us Zeus Campos MD,PHD URINE ORDERABLES Final Res ult Performing Organization Address [facility]/ZIP Co de Phone Number [facility] [address] [place] [address], [place] [phone] * THYROXINE, FREE (FT4) (02/15/2021 5:00 PM CDT) FREE T4 0.99 0.76 - 1.46 NG/DL 02/15/2021 6:25 PM CDT [facility] 02/15/2021 5:0 0 PM CDT us Zeus Campos MD,PHD LABORATORY Final Resu lt Performing Organization Address [facility]/ZIP Co de Phone Number [facility] [address] [place] [address], [place] [phone] * TSH W/REFLEX (02/15/2021 5:00 PM CDT) TSH 2.320 0.358 - 3.74 uIU/ML 02/15/2021 6:25 PM CDT [facility] Comment: HIGH DOSES OF BIOTIN MAY INTERFERE WITH THIS TEST RESULT. CORRELATION TO CLINICAL HISTORY AND PRESENTATION RECOMMENDED. FREE T4 NOT INDICATED 02/15/2021 5:00 PM CDT us Zeus Campos MD,PHD LABORATORY Final Resu lt Performing Organization Address [facility]/ZIP Co de Phone Number [facility] [address] [place] [address], [place] [phone] * (ABNORMAL) PHOSPHORUS, INORGANIC PHOSPHATE (02/15/2021 5:00 PM CDT) PHOSPHORUS 5.0(H) 2.5 - 4.9 MG/DL 02/15/2021 6:25 PM CDT [facility] 02/15/2021 5:00 PM CDT us Zeus Campos MD,PHD LABORATORY Final Resu lt Performing Organization Address [facility] Co de Phone Number [facility] [address] [place] [address], [place] [phone] * PRO-BRAIN NATRIURETIC PEPTIDE (02/15/2021 5:00 PM CDT) PRO-B TYPE NATRIURETIC PEPTIDE 100 <125 PG/ML 02/15/2021 6:25 PM CDT [facility] Comment: CUT POINTS ESTABLISHED BY [employer] ON NT PROBNP (ICON) STUDY (2006). AGE INDEPENDENT: <300 PG/ML HAS A 99% NEGATIVE PREDICTIVE VALUE FOR EXCLUDING ACUTE CHF <50 YEARS: >450 PG/ML IS CONSISTENT WITH ACUTE CHF 50-75 YEARS: >900 PG/ML IS CONSISTENT WITH ACUTE CHF >75 YEARS: >1800 PG/ML IS CONSISTENT WITH ACUTE CHF IN PATIENTS WITH RENAL INSUFFICIENCY (GFR <60), >1200 PG/ML YIELDS A DIAGNOSTIC SENSITIVITY AND SPECIFICITY OF 89% AND 72% FOR ACUTE CHF. 02/15/2021 5:00 PM CDT us Zeus Campos MD,PHD LABORATORY Final Resu lt Performing Organization Address [facility] Co de Phone Number [facility] [address] [place] [address], [place] [phone] * TROPONIN, QUANT (02/15/2021 5:00 PM CDT) Pathologist [facility] TROPONIN I <0.017 0.000 - 0.056 ng/mL. 02/15/2021 6:25 PM CDT [facility] Comment: NORMAL: LESS THAN OR EQUAL TO 0.056 NG/ML INDETERMINATE ZONE: 0.057 TO 0.599 NG/ML CONDITIONS RESULTING IN MYOCARDIAL CELL DAMAGE CAN POTENTIALLY INCREASE LEVELS ABOVE THE EXPECTED RANGE. HIGH DOSES OF BIOTIN MAY INTERFERE WITH THIS TEST RESULT. CORRELATION TO CLINICAL HISTORY AND PRESENTATION RECOMMENDED. 02/15/2021 5:00 PM CDT Zeus Campos MD,PHD LABORATORY Final [facility] Performing Organization Address [facility]/ZIP Co de Phone Number [facility] [address] [place] [address], [place] [phone] * (ABNORMAL) MAGNESIUM (02/15/2021 5:00 PM CDT) [facility] MAGNESIUM 3.3(H) 1.8 - 2.4 MG/DL 02/15/2021 6:25 PM CDT [facility] 02/15/2021 5:00 PM CDT Zeus Campos MD,PHD LABORATORY Final [facility] Performing Organization Address [facility]/ZIP Co de Phone Number [facility] [address] [place] [address], [place] [phone] * (ABNORMAL) COMPREHENSIVE METABOLIC PANEL (02/15/2021 5:00 PM CDT) [facility] GLUCOSE 83 70 - 99 MG/DL 02/15/2021 6:25 PM CDT [facility] BUN 11 7 - 18 MG/DL 02/15/2021 6:25 PM CDT [facility] CREATININE S/P/B 0.87 0.55 - 1.02 MG/DL 02/15/2021 6:25 PM CDT [facility] SODIUM S/P/B 144 136 - 145 MMOL/L 02/15/2021 6:25 PM T [facility] POTASSIUM S/P/B 4.1 3.5 - 5.1 MMOL/L 02/15/2021 6:25 PM T [facility] CHLORIDE S/P/B 106 100 - 108 MMOL/L 02/15/2021 6:25 PM T [facility] CO2 28.7 21 - 32 MMOL/L 02/15/2021 6:25 PM T [facility] CALCIUM S/P/B 9.1 8.5 - 10.1 MG/DL 02/15/2021 6:25 PM T [facility] BILIRUBIN TOTAL S/P/B 0.3 0.2 - 1.2 MG/DL 02/15/2021 6:25 PM T [facility] TOTAL PROTEIN S/P/B 6.6 6.4 - 8.2 G/DL 02/15/2021 6:25 PM T [facility] ALBUMIN S/P/B 3.5 3.4 - 5.0 G/DL 02/15/2021 6:25 PM T [facility] AST 20 15 - 37 U/L 02/15/2021 6:25 PM T [facility] ALT 20 14 - 55 U/L 02/15/2021 6:25 PM T [facility] ALKALINE PHOSPHATASE S/P/B 97 50 - 136 U/L 02/15/2021 6:25 PM T [facility] ANION GAP 9.3 5 - 15 MMOL/L 02/15/2021 6:25 PM T [facility] BUN CREATININE RATIO 12.6 6 - 26 02/15/2021 6:25 PM CDT [facility] A/G RATIO 1.1 1.0 - 2.0 RATIO 02/15/2021 6:25 PM CDT [facility] EGFR NON-AFR. AMER. 80(L) >90 ML/MIN/1.7 3 M2 02/15/2021 6:25 PM CDT [facility] EGFR AFR. AMER. >90 >90 ML/MIN/1.7 3 M2 02/15/2021 6:25 PM CDT [facility] Comment: NOTE: eGFR is not calculated for patients <18 years of age. This is an estimated GFR (CKD EPI) and should not be used for calculating drug doses. 02/15/2021 5:00 PM CDT Zeus Campos MD,PHD LABORATORY Final Resu lt [facility] [address] [place] [address], [place] [phone] * (ABNORMAL) CBC W/DIFF AUTOMATED (02/15/2021 5:00 PM CDT) WBC 8.0 4.4 - 11.0 x10'3/uL 02/15/2021 6:05 PM CDT [facility] RBC 3.92(L) 4.50 - 5.10 x10'6/uL 02/15/2021 6:05 PM CDT [facility] HGB 12.5 12.3 - 15.3 G/DL 02/15/2021 6:05 PM CDT [facility] HCT 37.9 35.9 - 44.6 % 02/15/2021 6:05 PM CDT [facility] MCV 96.7(H) 80.0 - 96.0 FL 02/15/2021 6:05 PM T [facility] MCH 31.9(H) 25.3 - 30.9 PG 02/15/2021 6:05 PM [facility] MCHC 33.0 31.0 - 34.1 G/DL 02/15/2021 6:05 PM T [facility] RDW 12.8 12.4 - 15.1 % 02/15/2021 6:05 PM [facility] PLT 343 151 - 353 x10'3/uL 02/15/2021 6:05 PM [facility] MPV 9.4(L) 9.6 - 12.0 FL 02/15/2021 6:05 PM [facility] RBC MORPHOLOGY NORMAL 02/15/2021 6:05 PM [facility] PLT MORPH. NORMAL 02/15/2021 6:05 PM [facility] WBC MORPHOLOGY NORMAL 02/15/2021 6:05 PM [facility] LYMPHOCYTES % 21.3 15.8 - 45.0 % 02/15/2021 6:05 PM [facility] NEUTROPHILS % 69.4 42.1 - 71.9 % 02/15/2021 6:05 PM [facility] [facility] MONOC[facility]TES % 7.2 5.7 - 12.5 % 02/15/2021 6:05 PM [facility] EOSINOPHILS 1.1 0.0 - 5.6 % 02/15/2021 6:05 PM [facility] BASOPHILS 0.6 0.0 - 1.3 % 02/15/2021 6:05 PM [facility] ABS. NEUTROPHILS TOTAL 5.52 1.40 - 6.00 x10'3/uL 02/15/2021 6:05 PM CDT [facility] IMMATURE GRANS % 0.4 0.0 - 0.5 % 02/15/2021 6:05 PM CDT [facility] ABS. LYMPHOCYTES 1.69 0.80 - 4.70 x10'3/uL 02/15/2021 6:05 PM CDT [facility] 02/15/2021 5:00 PM CDT us Zeus Campos MD,PHD LABORATORY Final Resu lt [facility] [address] [place] [address], [place] [phone] documented in this encounter Visit Diagnoses Diagnosis Flank pain- Primary Abdominal pain, unspecified site Malaise Other malaise and fatigue documented in this encounter Administered Medications Inactive Administered Medications - up to 3 most recent administrations Medication Order MAR Action Action Date Dose Rate Site iopamidol (ISOVUE-370) 76 % injection 75 mL 75 mL, Intravenous, IMG once as needed, Contrast, 1 dose, Starting on Thu02/15/21 at 1859, Until Thu02/15/21 at 1900 Given 02/15/2021 7:00 PM CDT 75 mLs Left Arm documented in this encounter Active and Recently Administered Medications Times are shown in CDT. PRN Medication Order 2021 02/14/2021 02/15/2021 iopamidol (ISOVUE-370) 76 % injection 75 mL (COMPLETED) 75 mL, Intravenous, IMG once as needed, Contrast, 1 dose, Starting on Thu02/15/21 at 1859, Until Thu02/15/21 at 1900 1900 (Given - Provid er: Jacqueline Langley RTR) documented in this encounter Additional Health Concerns Assessment Noted Time PHQ-9 Depression Total Score: 2 12/19/19 21 4:22 PM CDT documented as of this encounter Care Teams Glue Wheel Operator Relationship Specialty Start Date End Date Vianey Meyer FNP [address] [place] [id number] PCP - General Nurse Practitioner Family 06/21/1805/22/21 documented as of this encounter
--- OUTSIDE RECORDS SUMMARY | 2024-07-24 00:48 | XMS_ITS | Encounter Summary ---
Author Organization [facility] Address [address] [place] [address]. [place], [place] [address] [place], [place] [id number] Care Team Providers Care Hourly Manager Name Role Phone Vianey Meyer Primary Care Provider Reason for Visit * Reason Comments Weight Problem f/u on medications Insect Bite tick bite on head Encounter Details Date Type Department Care Team (Late st Contact Info) Description 12/18/2020 3:20 PM CDT Office Visit [facility] Family & Internal Medicine [address] [phone] Vianey Meyer FNP [address] [place] [address] [phone] Weight Problem (f/u on medications); Insect Bite (tick bite on head 12/10/20) Social History Tobacco Use Types Packs/Day Years Used Date Smoking Tobacco: Every Day Cigarettes 0.3 20 Smokeless Tobacco: Never Tobacco Cessation:Ready to Q uit: Yes; Counseling Given: Yes Comments:provider to addiction treatment counselor Alcohol Use Standard Drinks/Week Comments Yes [...] Sign Reading Time Taken Comments Blood Pressure 140/77 12/18/2020 3:44 PM CDT Pulse 91 12/18/2020 3:44 PM CDT Temperature 37 ??C (98.6 ??F) 12/18/2020 3:44 PM CDT Respiratory Rate 16 12/18/2020 3:44 PM CDT Oxygen Saturation 98% 12/18/2020 3:44 PM CDT Inhaled Oxygen Concentration - - Weight 71.2 kg (157 lb) 12/18/2020 3:44 PM CDT Height 162.6 cm (5' 4 ) 12/18/2020 3:44 PM CDT Body Mass Index 26.95 12/18/2020 3:44 PM CDT documented in this encounter Patient Instructions * Patient Instructions* EMANI Crowder - 12/18/2020 3:20 PM CDT Start the increased dose of Vyvanse as directed and prescribed Continue your other medications as prescribed. Call for any further issues, concerns or questions, especially if your tick bite becomes more painful and swollen. Otherwise, follow up in one month or sooner if needed ( for a recheck of the effectiveness of the Vyvanse ) documented in this encounter Progress Notes * EMANI Crowder - 12/18/2020 3:20 PM CDTSummary: chronic follow up Images from the original note were not included. Office Progress Note Reason for Visit: Weight Problem (f/u on medications) and Insect Bite (tick bite on head 12/10/20) History of Present Illness: Karlie presents to the office for a f/u of her chronic conditions. ADD- Vyvanse is helping with her focus and attention but she reports that it might need to be increased as it is not lasting long. She still reports sleepiness in the afternoon when she feels like the medication might have worn off. She is also hoping that this medication would help her lose some weight. She reports that she is walking more for exercise and is watching her diet. She has a tick bite that occurred on the 10 of December on her scalp,right sided, but she is still having some tenderness to the area and some swelling. She is currently taking amoxicillin for exposure to strep throat and is wondering if this would help. She is also using mupirocin ointment to the area of concern. Insomnia- she reports that she is needing a refill of her lunesta. She reports that this works wellwhen she takes this medication for her insomnia. She denies any side effects from this medication. ROS: Review of Systems Constitutional: Positive for [...] pain. Skin: Negative for itching and rash. Tick bite Neurological: Negative for dizziness, tingling, tremors, sensory change, speech change, focal weakness, seizures, loss of consciousness, weakness and headaches. Endo/Heme/Allergies: Negative for environmental allergies and polydipsia. Does not bruise/bleed easily. Psychiatric/Behavioral: Negative for depression, hallucinations, memory loss, substance abuse and suicidal ideas. The patient is not nervous/anxious and does not have insomnia. Medications: Current Outpatient Medications on File Prior to Visit Medication Sig ??? Multiple Vitamin (MULTIVITAMIN ADULT OR) ??? PARoxetine (PAXIL) 10 MG tablet Take 1 tablet (10 mg total) by mouth every morning. ??? Vitamin D, Cholecalciferol, 25 MCG (1000 UT) Cap No current facility-administered medications on file prior [...] Never Used ??? Tobacco comment: provider to addiction treatment counselor Substance and Sexual Activity ??? Alcohol [...] Gatherings with Friends and Family: ??? Attends Denominational Services: ??? Active Member of Clubs or [...] is oriented to person, place, and time. Vital signs are normal. She appears well-developed and well-nourished. She is cooperative. She does not have a sickly appearance. She does not appear ill. No distress. HENT: Head: Normocephalic and atraumatic. Right Ear: Hearing, tympanic membrane, external ear and ear canal normal. Left Ear: Hearing, tympanic membrane, external ear and ear canal normal. Nose: Nose normal. Mouth/Throat: Mucous membranes are normal. Eyes: Conjunctivae, EOM and lids are normal. Neck: Trachea normal and phonation normal. Normal carotid pulses present. Carotid bruit is not present. No thyroid mass present. Cardiovascular: Normal rate, regular rhythm, normal heart sounds and intact distal pulses. Pulmonary/Chest: Effort normal and breath sounds normal. No accessory muscle usage. No respiratory distress. She has no decreased breath sounds. She has no wheezes. She has no rhonchi. She has no rales. Abdominal: Soft. Normal appearance and bowel sounds are normal. She exhibits no abdominal bruit andno pulsatile midline mass. There is no hepatosplenomegaly. There is no abdominal tenderness. There is no CVA tenderness. Musculoskeletal: Cervical back: Full passive range of motion without pain, normal range of motion and neck supple. No spinous process tenderness or muscular tenderness. Lymphadenopathy: She has no cervical adenopathy. Neurological: She is alert and oriented to person, place, and time. She has normal strength. No cranial nerve deficit or sensory deficit. Coordination and gait normal. Skin: Skin is warm, dry and intact. Lesion (tick bite on scalp, right sided) noted. No rash noted. Psychiatric: She has a normal mood and affect. Her speech is normal and behavior is normal. Judgment and thought content normal. Cognition and memory are normal. Filed Vitals: 12/18/20 1544 BP: 140/77 Pulse: 91 Resp: 16 Temp: 98.6 ??F (37 ??C) SpO2: 98% Weight: 71.2 kg (157 lb) Height: 5' 4 (1.626 m) Diagnoses/Impression: 1. Attention deficit hyperactivity disorder (ADHD), predominantly inattentive type lisdexamfetamineDimesylate 70 MG capsule 2. Insomnia due to other mental disorder Eszopiclone 3 MG Tab 3. Tick bite of scalp, initial encounter 4. Adult BMI 26.0-26.9 kg/sq m Recommendations and Plan: 1. Attention deficit hyperactivity disorder (ADHD), predominantly inattentive type - lisdexamfetamine Dimesylate 70 MG capsule; Take 1 capsule (70 mg total) by mouth every morning. Dispense: 30 capsule; Refill: 0 - she will start the increased dose of Vyvanse and call if she has any issues or concerns with thismedication. - discussed one month follow up or sooner if needed 2. Insomnia due to other mental disorder - Eszopiclone 3 MG Tab; TAKE ONE TABLET BY MOUTH IMMEDIATELY BEFORE BEDTIME. Dispense: 30 tablet; Refill: 2 - she will continue the lunesta as prescribed and directed. - routine follow up advised for her insomnia. 3. Tick bite of scalp, initial encounter - she will continue the current antibiotic she is on until gone. She will call for any s/s of infection, as discussed. - she will also continue mupirocin ointment to the area a couple times a day. - discussed f/u if needed. 4. Adult BMI 26.0-26.9 kg/sq m - she will continue a heart healthy diet and daily physical activity - discussed routine follow up, sooner if needed. Orders Placed This Encounter ??? Multiple Vitamin (MULTIVITAMIN ADULT OR) ??? Vitamin D, Cholecalciferol, 25 MCG (1000 UT) Cap ??? lisdexamfetamine Dimesylate 70 MG capsule ??? Eszopiclone 3 MG Tab Cannot display discharge medications since this is not an admission. PCP: EMANI KILGORE 12/18/2020 Cosigned by Rodger Miller MD at 12/26/2020 7:20 AM CDT documented in this encounter Plan of Treatment Upcoming Encounters Date Type Department Care Team (Late st Contact Info) Description 09/08/2024 10:10 AM BRAND ACTIVATION MANAGER Office Visit [facility] Family Medicine - [place] [address] [place] [address] Samantha Sanders MD [address] [place], [place] [phone] documented as of this encounter Visit Diagnoses Diagnosis Attention deficit hyperactivity disorder (ADHD), predominantly inattentive type- Primary Insomnia due to other mental disorder Tick bite of scalp, initial encounter Adult BMI 26.0-26.9 kg/sq m Body Mass Index 26.0-26.9, adult documented in this encounter Additional Health Concerns Assessment Noted Time PHQ-9 Depression Total Score: 2 12/19/19 21 4:22 PM CDT documented as of this encounter Care Teams Hourly Manager Relationship Specialty Start Date End Date Vianey Meyer FNP [address] [place] [id number] PCP - General Nurse Practitioner Family 06/21/1805/22/21 documented as of this encounter
--- OUTSIDE RECORDS SUMMARY | 2024-07-24 00:48 | XMS_ITS | Encounter Summary ---
Author Organization [facility] Address [address] [place] [address]. [place], [place] [address] [place], [place] [id number] Care Team Providers Care Stationary Boiler Fireman Name Role Phone Vianey Meyer Primary Care Provider [phone] Encounter Details Date Type Department Care Team (Late Contact Info) Description 02/05/2021 Orders Only [facility] Family & Internal Medicine [place] [phone] [place] [address] Vianey Meyer FNP [address] [place] [address] Social History Tobacco Use Types Packs/Day Years Used Date Smoking Tobacco: Every Day Cigarettes 0.3 20 Smokeless Tobacco: Never Comments:provider to christian counselor Alcohol Use Standard Drinks/Week Comments Yes [...] st Contact Info) Description 09/08/2024 10:10 AM DOPE WORKER Office Visit [facility] Family Medicine - [place] [address] [facility] [address] [place] [address] Samantha Sanders MD [address] [place] [address] documented as of this encounter Visit Diagnoses Diagnosis Attention deficit hyperactivity disorder (ADHD), combined type- Primary documented in this encounter Additional Health Concerns Assessment Noted Time PHQ-9 Depression Total Score: 2 12/19/19 21 4:22 PM CDT documented as of this encounter Care Teams Stationary Boiler Fireman Relationship Specialty Start Date End Date Vianey Meyer FNP [address] [place] [address] PCP - General Nurse Practitioner Family 06/21/1805/22/21 documented as of this encounter
--- OUTSIDE RECORDS SUMMARY | 2024-07-24 00:48 | XMS_ITS | Encounter Summary ---
Author Organization [facility] Address [address] [place] [address]. [place], [place] [phone] [place], [place] [phone] Care Team Providers Care Chef Head Name Role Phone Vianey Meyer Primary Care Provider Encounter Details Date Type Department Care Team (Late st Contact Info) Description 04/13/2020 Orders Only [facility] Family & Internal Medicine [facility] [address] [place] [address] Vianey Meyer FNP [facility] [place] [address] Social History Tobacco Use Types Packs/Day Years [...] as of this encounter Progress Notes * EMANI Crowder - 04/13/2020 4:45 PM CDT trintellix sent to pharmacy documented in this encounter Plan of Treatment Upcoming Encounters Date Type Department Care Team (Late st Contact Info) Description 09/08/2024 10:10 AM MILK BOTTLER Office Visit [facility] Family Medicine - [place] [address] [facility] [address] [place] [address] Samantha Sanders MD [address] [place] [address] documented as of this encounter Visit Diagnoses Diagnosis Depression with anxiety- Primary Dysthymic disorder documented in this encounter Additional Health Concerns Assessment Noted Time PHQ-9 Depression Total Score: 7 01/18/20 19 12:34 PM CDT documented as of this encounter Care Teams Chef Head Relationship Specialty Start Date End Date Vianey Meyer FNP [facility] [place] [address] PCP - General Nurse Practitioner Family 06/21/1805/22/21 documented as of this encounter
--- OUTSIDE RECORDS SUMMARY | 2024-07-24 00:48 | XMS_ITS | Encounter Summary ---
Author Organization [facility] Address [address] [place] [address]. [place], [place] [id number] [place] [address] Care Team Providers Care Building Services Coordinator Name Role Phone Vianey Meyer Primary Care Provider [phone] Reason for Visit * Reason Comments Weight Check pt isnt losing weigh t. Encounter Details Date Type Department Care Team (Late st Contact Info) Description 10/22/2020 8:20 AM CDT Office Visit [facility] Family & Internal Medicine [address] [phone] Vianey Meyer FNP [facility] [place] [address] Weight Check (pt isnt losing weight. ) Social History Tobacco Use Types Packs/Day [...] have Coronavirus / COVID-19? No / Unsure 10/22/2020 8:14 AM CDT documented as of this encounter Last Filed Vital Signs Vital Sign Reading Time Taken Comments Blood Pressure 112/62 10/22/2020 8:22 AM CDT Pulse 86 10/22/2020 8:22 AM CDT Temperature 36.7 ??C (98.1 ??F) 10/22/2020 8:22 AM CD T Respiratory Rate 20 10/22/2020 8:22 AM CDT Oxygen Saturation 97% 10/22/2020 8:22 AM CDT Inhaled Oxygen Concentration - - Weight 70.8 kg (156 lb) 10/22/2020 8:22 AM CDT Height 152.4 cm (5') 10/22/2020 8:22 AM CDT Body Mass Index 30.47 10/22/2020 8:22 AM CDT documented in this encounter Patient Instructions * Patient Instructions* EMANI Crowder - 10/22/2020 8:20 AM CDT Take medications as directed and prescribed Maintain a heart healthy diet and get plenty of daily physical activity. Call for any questions, concerns or further issues. Follow up in one month or sooner if needed. documented in this encounter Progress Notes * EMANI Crowder - 10/22/2020 8:20 AM CDTSummary: weight issues Office Progress Note Reason for Visit: Weight Check (pt isnt losing weight. ) History of Present Illness: Karlie presents to the clinic today for a follow up on her chronic conditions and weight issues. ADD- Reports a history of ADD. She stated that she has taken both Vyvanse and Adderall in the past.She stated that since the Phentermine isn't working for her she would like to restart the Vyvanse to manage her ADD symptoms. Anxiety/Depression- Reports that she has been having increased anxiety symptoms. She has been more emotional, worried, mind racing, and panic attacks. She has been taking her Buspar daily, but she doesn't think that it is helping to manage her symptoms well. She has noticed a hum in her ears when taking this medication. Reports that she has stopped taking her Wellbutrin because she was not able to tolerate the side effects. Denies any SI or HI. Weight issues- Reports that in the last year she has gained 25-30lbs. She stated that she has been on Phentermine for the last 3 months but she has not been able to lose any weight. She has been working out and trying to walk daily. She stated that she has stopped eating fried foods, but she is working on improving her diet. She is unsure if her weight gain is hormone related. She had a hysterectomy 2 years ago and she is now having menopausal symptoms, mainly hot flashes. Denies any CP, SOB, blurred vision, HULL, heart palpations, and dizziness. ROS: Review of Systems Constitutional: Negative for chills, diaphoresis, fever, malaise/fatigue and weight loss. Weight gain HENT: Negative for congestion, ear discharge, ear [...] abuse and suicidal ideas. The patient is nervous/anxious. The patient does not have insomnia. Medications: Current Outpatient Medications on File Prior to Visit Medication Sig ??? dicyclomine 10 MG capsule Take 10 mg by mouth as needed. ??? ESZOPICLONE 3 MG Tab TAKE ONE TABLET BY MOUTH IMMEDIATELY BEFORE BEDTIME. No current facility-administered medications on file prior [...] file Gets together: Not on file Attends christianity service: Not on file Active member of [...] EOM and lids are normal. Neck: Trachea normal, normal range of motion, full passive range of motion without pain and phonation normal. Neck supple. Normal carotid pulses present. No spinous process tenderness and no musculartenderness present. Carotid bruit is not present. No [...] abdominal tenderness. There is no CVA tenderness. Lymphadenopathy: She has no cervical adenopathy. Neurological: She is alert and oriented to person, place, and time. She has normal strength. No cranial nerve deficit or sensory deficit. Coordination and gait normal. Skin: Skin is warm, dry and intact. No rash noted. Psychiatric: She has a normal mood and affect. Her speech is normal and behavior is normal. Judgment and thought content normal. Cognition and memory are normal. Filed Vitals: 10/22/20 0822 BP: 112/62 Pulse: 86 Resp: 20 Temp: 98.1 ??F (36.7 ??C) TempSrc: Oral SpO2: 97% Weight: 70.8 kg (156 lb) Height: 5' (1.524 m) Diagnoses/Impression: 1. Class 1 obesity due to excess calories without serious comorbidity with body mass index (BMI) of30.0 to 30.9 in adult 2. Attention deficit disorder, unspecified hyperactivity presence lisdexamfetamine 30 MG capsule 3. Perimenopausal symptoms PARoxetine (PAXIL) 10 MG tablet 4. Depression with anxiety Recommendations and Plan: 1. Class 1 obesity due to excess calories without serious comorbidity with body mass index (BMI) of30.0 to 30.9 in adult 2. Attention deficit disorder, unspecified hyperactivity presence - lisdexamfetamine 30 MG capsule; Take 1 capsule (30 mg total) by mouth every morning. Dispense: 30capsule; Refill: 0 3. Perimenopausal symptoms - PARoxetine (PAXIL) 10 MG tablet; Take 1 tablet (10 mg total) by mouth every morning. Dispense: 30tablet; Refill: 1 4. Depression with anxiety - she will start the vyvanse 30 mg daily and call if she has any issues with this medication. She will also start the paxil at night to help with her perimenopausal symptoms. She will call for any side effects from this medication. - we discussed maintaining a heart healthy diet and daily physical activity. - she was advised to call or follow up in one month or sooner if needed. Orders Placed This Encounter ??? PARoxetine (PAXIL) 10 MG tablet ??? lisdexamfetamine 30 MG capsule Cannot display discharge medications since this is not an admission. PCP: EMANI KILGORE 10/22/2020 Cosigned by Rodger Miller MD at 10/29/2020 5:16 PM CDT documented in this encounter Plan of Treatment Upcoming Encounters Date Type Department Care Team (Late st Contact Info) Description 09/08/2024 10:10 AM BREEDING TECHNICIAN Office Visit [facility] Family Medicine - [place] [address] [place] [phone] Samantha Sanders MD [address] [place] [phone] documented as of this encounter Visit Diagnoses Diagnosis Class 1 obesity due to excess calories without serious comorbidity with body mass index (BMI) of 30.0 to 30.9 in adult- Primary Attention deficit disorder, unspecified hyperactivity presence Perimenopausal symptoms Symptomatic menopausal or female climacteric states Depression with anxiety Dysthymic disorder documented in this encounter Additional Health Concerns Assessment Noted Time PHQ-9 Depression Total Score: 7 01/18/20 19 12:34 PM CDT documented as of this encounter Care Teams Building Services Coordinator Relationship Specialty Start Date End Date Vianey Meyer FNP [address] [place] [address] PCP - General Nurse Practitioner Family 06/21/1805/22/21 documented as of this encounter
--- OUTSIDE RECORDS SUMMARY | 2024-07-24 00:48 | XMS_ITS | Encounter Summary ---
Author Organization [facility] Address [address] [place] [address]. [place], [place] [phone] [place], [place] [phone] Care Team Providers Care Crop Picker Name Role Phone Suzie Coulter Primary Care Provider [phone] Reason for Visit * Reason Onset Date Comments Refill Request 12/01/2019 Encounter Details Date Type Department Care Team (Late st Contact Info) Description 12/01/2019 Telephone [facility] Family & Internal Medicine [place] [address] [place] [address] Suzie Coulter FNP [facility] [place], [place] [phone] Refill Request Social History Tobacco Use Types [...] have Coronavirus / COVID-19? Unable to assess 11/04/2019 1:07 PM CDT documented as of this encounter Progress Notes * Alanna Almaguer MA - 12/01/2019 2:38 PM CDT Refill request received from Pharmacy Last visit with SUZIE COULTER in FAMILY PRACTICE was on: 11/04/2019 in [facility] No future appointments. [id number] - [place], [place] - [address] [facility] [address] [facility] [address] Current Outpatient Medications: ??? amphetamine-dextroamphetamine (ADDERALL) 20 MG tablet, Take [...] Contact Info) Description 09/08/2024 10:10 AM CLINICAL AIDE Office Visit [facility] Family Medicine - [place] [address] [place] [address] Samantha Sanders MD [address] [place], [place] [phone] documented as of this encounter Visit Diagnoses Diagnosis Attention deficit disorder, unspecified hyperactivity presence documented in this encounter Additional Health Concerns Assessment Noted Time PHQ-9 Depression Total Score: 7 01/18/20 19 12:34 PM CDT documented as of this encounter Care Teams Crop Picker Relationship Specialty Start Date End Date Suzie Coulter FNP [address] [place] [address] PCP - General Nurse Practitioner Family 06/21/1805/22/21 documented as of this encounter
--- OUTSIDE RECORDS SUMMARY | 2024-07-24 00:48 | XMS_ITS | Encounter Summary ---
Author Organization [facility] Address [address] [place] [address]. [place], [place] [address] [place] [address] Care Team Providers Care Trial Consultant Name Role Phone Vianey Meyer Primary Care Provider [phone] Encounter Details Date Type Department Care Team (Late st Contact Info) Description 01/15/2021 Orders Only [facility] Family & Internal Medicine [place] [address] [place] [phone] Vianey Meyer FNP [facility] [place] [address] Social History Tobacco Use Types Packs/Day Years Used Date Smoking Tobacco: Every Day Cigarettes 0.3 20 Smokeless Tobacco: Never Comments:provider to career and guidance counselor Alcohol Use Standard Drinks/Week Comments [...] st Contact Info) Description 09/08/2024 10:10 AM DICTATING MACHINE TYPIST Office Visit [facility] Family Medicine - [place] [address] [place] [address] Samantha Sanders MD [address] [place], [place] [phone] documented as of this encounter Visit Diagnoses Diagnosis Attention deficit hyperactivity disorder (ADHD), combined type- Primary documented in this encounter Additional Health Concerns Assessment Noted Time PHQ-9 Depression Total Score: 2 12/19/19 21 4:22 PM CDT documented as of this encounter Care Teams Trial Consultant Relationship Specialty Start Date End Date Vianey Meyer FNP [address] [place] [address] PCP - General Nurse Practitioner Family 06/21/1805/22/21 documented as of this encounter
--- OUTSIDE RECORDS SUMMARY | 2024-07-24 00:48 | XMS_ITS | Encounter Summary ---
Author Organization [facility] Address [address] [place] [address]. [place] [id number] [place], [place] [id number] Care Team Providers Care Food Service Supervisor Name Role Phone Suzie Coulter Primary Care Provider [phone] Reason for Visit * Reason Onset Date Comments Medication Request 11/08/2020 Encounter Details Date Type Department Care Team (Late st Contact Info) Description 11/08/2020 Telephone [facility] Family & Internal Medicine [place] [address] [place] [address] Suzie Coulter FNP [facility] [place] [address] Medication Request Social History Tobacco Use Types [...] as of this encounter Progress Notes * Suzie Kilzer, PARTS COUNTER SPECIALIST - 11/16/2020 11:48 AM CDT Medicine sent to pharmacy * EMANI Crowder - 11/16/2020 11:48 AM CDTAddended by: SUZIE COULTER on: 11/16/2020 11:48 AM Modules accepted: Orders * Susy Perry MA - 11/16/2020 11:04 AM CDTAddended by: SUSY PERRY on: 11/16/2020 11:04 AM Modules accepted: Orders * Susy Perry MA - 11/16/2020 11:01 AM CDT Spoke with the pharmacy and her last fill was 11/09/20 # 7. Rx pended for the other 23. * Susy Perry MA - 11/16/2020 10:55 AM CDT Prior auth information faxed to the pharmacy tn * EMANI Crowder - 11/16/2020 8:09 AM CDT Can we check with the pharmacy please * Yazmin Riggs - 11/16/2020 7:18 AM CDT Patient called in stating that when she went to picking table worker her Vyvanse it was still expensive so the pharmacy let her on;y picking table worker 7 pills and told her to call in and have us send a script for the other23 pills. She states that it would be cheaper doing it that way. Patient is asking if we can send in for the other 23 pills? * EMANI Crowder - 11/09/2020 2:57 PM CDT Increased dose of vyvanse was sent to her pharmacy * Sneha Batista - 11/09/2020 2:29 PM CDT Patient does not want the phentermine anymore. She would like to increase Vyvanse. * Yazmin Riggs - 11/09/2020 11:58 AM CDT Patient called back in, I advised her of the following, she said that since the Vyvanse is so expensive she will switch back to phentermine once her script is up. * Susy Perry MA - 11/09/2020 10:45 AM CDT Lm 11/09/20 tn * EMANI Crowder - 11/08/2020 4:05 PM CDT We can increase her vyvanse or switch back to phentermine * Susy Perry MA - 11/08/2020 2:51 PM CDT Patient informed and wanting to know what to do next after her rx is up. * EMANI Crowder - 11/08/2020 2:45 PM CDT We will not prescribe two stimulants at the same time. We can try to work on an appeal but am not sure if her insurance would cover this medication or not because it usually does not cover this unless you are under 21 * Sneha Batista - 11/08/2020 2:21 PM CDT Patient called in asking if you would prescribe Vyvanse and phentermine together? She stated that the Vyvanse has helped her lose 5 pounds but she is still tired and needs the phentermine for energy. She is also asking if we can do an appeal letter for her denial of Vyvanse. documented in this encounter Plan of Treatment Upcoming Encounters Date Type Department Care Team (Late st Contact Info) Description 09/08/2024 10:10 AM WAREHOUSE GUARD Office Visit [facility] Family Medicine [facility] [address] [facility] [address] [place] [address] Samantha Sanders MD [address] [place] [address] documented as of this encounter Visit Diagnoses Diagnosis Attention deficit disorder, unspecified hyperactivity presence- Primary documented in this encounter Additional Health Concerns Assessment Noted Time PHQ-9 Depression Total Score: 7 01/18/20 19 12:34 PM CDT documented as of this encounter Care Teams Food Service Supervisor Relationship Specialty Start Date End Date Suzie Coulter FNP [address] [place] [address] PCP - General Nurse Practitioner Family 06/21/1805/22/21 documented as of this encounter
--- OUTSIDE RECORDS SUMMARY | 2024-07-24 00:48 | XMS_ITS | Encounter Summary ---
Author Organization [facility] Address [address] [place] [address]. [place] [phone] Care Team Providers Care Caustic Mixer Name Role Phone uSzie Coulter Primary Care Provider [phone] Reason for Visit * Reason Onset Date Comments Medication 04/22/2021 Encounter Details Date Type Department Care Team (Late st Contact Info) Description 04/22/2021 Telephone [facility] Medical Group Family & Internal Medicine [place] [address] [place] [address] Suzie Coulter FNP [facility] [place] [address] Medication Social History Tobacco Use [...] Progress Notes * Susy Perry MA - 05/01/2021 1:08 PM CDT Spoke with the pharmacy and was informed that patient picked up 70 mg Vyvanse on 04/25/21 # 30 * EMANI Crowder - 04/25/2021 4:01 PM CDT We need to check with the pharmacy about what is going on. Several scripts have been sent over the last week. * Angi Leahy - 04/25/2021 1:55 PM CDT Pt calling, pharmacy won't release the rx to her. Pt would like to have us send in the 70 mg now. She stated that they have given her such a hassle about this. She has been tolerating the 50 with the20 well. * EMANI Crowder - 04/25/2021 9:31 AM CDT Medication sent over to pharmacy. Next fill in 10 days will be the 70 mg capsule. * EMANI Crowder - 04/25/2021 9:30 AM CDTAddended by: SUZIE COULTER on: 04/25/2021 09:30 AM Modules accepted: Orders * Yazmin Riggs - 04/24/2021 1:29 PM CDT Patient is calling back in asking about the status of this medication if we are able to send over the other half. * Susy Perry MA - 04/22/2021 4:47 PM CDT Filled 10 mg #10 on 04/20/21 , this was supposed to be #20 of 20 mg. Now asking for #10 of the 20 tocomplete the original rx that Suzie sent. Post dated to 04/25/21 * Atiya Yarbrough - 04/22/2021 3:55 PM CDT She would like Susy to give her a call back regarding vyvanse. documented in this encounter Plan of Treatment Upcoming Encounters Date Type Department Care Team (Late st Contact Info) Description 09/08/2024 10:10 AM TELECOM FIELD TECHNICIAN Office Visit [facility] Medical [facility] Family Medicine - [place] [address] [facility] [address] [place] [phone] Samantha Sanders MD [address] [place] [address] documented as of this encounter Visit Diagnoses Diagnosis Attention deficit hyperactivity disorder (ADHD), combined type documented in this encounter Additional Health Concerns Assessment Noted Time PHQ-9 Depression Total Score: 2 12/19/19 21 4:22 PM CDT documented as of this encounter Care Teams Caustic Mixer Relationship Specialty Start Date End Date Suzie Coulter FNP [address] [place] [address] PCP - General Nurse Practitioner Family 06/21/1805/22/21 documented as of this encounter
--- OUTSIDE RECORDS SUMMARY | 2024-07-24 00:48 | XMS_ITS | Encounter Summary ---
Author Organization [facility] Address [address] [place] [address]. [place] [address] Care Team Providers Care Collar Packer Name Role Phone Vianey Meyer Primary Care Provider [phone] Reason for Visit * Reason Onset Date Comments COVID-19 06/12/2020 Encounter Details Date Type Department Care Team (Late st Contact Info) Description 06/12/2020 Telephone [facility] Medical Group Family & Internal Medicine [place] [phone] [place] [address] Vianey Meyer FNP [address] [place] [address] COVID-19 Social History Tobacco Use Types Packs/Day Years [...] as of this encounter Progress Notes * Alyssia Smith RN - 06/12/2020 1:12 PM CST Patient thew up last week sometime. She believes she is showing signs of covid. Symptoms started 05/31- headache and then fatigued and the first part of last week she lost her taste and smell. Deniescough or anything. She would like to get COVID tested. No one ever called her from [place]. She isalmost through COVID if she has this. She did self-isolate. GER OF HEALTH * Sneha Batista - 06/12/2020 10:19 AM CST Patient called in wanting to ask questions about COVID-19. Nobody was free, I advised the patient that we would call her back. GER OF HEALTH documented in this encounter Plan of Treatment Upcoming Encounters Date Type Department Care Team (Late st Contact Info) Description 09/08/2024 10:10 AM MANAGER OF HEALTH Office Visit [facility] Medical Group Family Medicine - [place] [address] [facility] [address] [place] [address] Samantha Sanders MD [address] [place] [address] documented as of this encounter Visit Diagnoses Not on filedocumented in this encounter Additional Health Concerns Infection Onset Date Last Indicated Resolved Time COVID-19 Rule Out 06/06/2020 06/06/2020 08/05/2020 12:33 AM MANAGER OF HEALTH Assessment Noted Time PHQ-9 Depression Total Score: 7 01/18/20 12:34 PM CDT documented as of this encounter Care Teams Collar Packer Relationship Specialty Start Date End Date Vianey Meyer FNP [address] [place] [address] PCP - General Nurse Practitioner Family 06/21/1805/22/21 documented as of this encounter
--- OUTSIDE RECORDS SUMMARY | 2024-07-24 00:48 | XMS_ITS | Encounter Summary ---
Author Organization [facility] Address [address] [place] [address]. [place] [id number] [place], [place] [phone] Care Team Providers Care Corporate Traffic Manager Name Role Phone Vianey Meyer Primary Care Provider [phone] Reason for Visit * Reason Onset Date Comments Refill Request 04/13/2020 Encounter Details Date Type Department Care Team (Late st Contact Info) Description 04/13/2020 Telephone [facility] Medical Group Family & Internal Medicine [place] [address] [place] [address] Vianey Meyer FNP [facility]1 [place], [place] [phone] Refill Request Social History Tobacco Use Types [...] of this encounter Progress Notes * Alanna Hoffman MA - 04/18/2020 12:32 PM CDTAddended by: ALANNA HOFFMAN on: 04/18/2020 12:32 PM Modules accepted: Orders * Alanna Hoffman MA - 04/18/2020 12:32 PM CDT Pended for approval * EMANI Crowder - 04/18/2020 12:19 PM CDT Okay to refilll * Angi Leahy - 04/18/2020 12:04 PM CDT Pt asking for adderal to be renewed, she has someone coming to pick her up this afternoon to do errands and would like this sent to [facility] please * Alyssia Smith RN - 04/16/2020 11:55 AM CDT Spoke to patient; verbalized understanding. * EMANI Crowder - 04/16/2020 10:48 AM CDT There is a generic for trintellix- but she can also download the coupon and see if this helps. We can refill her adderall for the . * Susy Perry MA - 04/16/2020 10:19 AM CDT Patient informed and states the trintelix is 425$ and she could not afford to get it. Wanting to know if she can get the adderall on 04/18 and if there is a generic for the trintelix? * EMANI Crowder - 04/13/2020 4:47 PM CDT She will need to wait for her adderal but I sent over the trintellix * Angi Leahy - 04/13/2020 2:26 PM CDT Pt asking for trintellix to be rxd, stated that you had suggested it before. Also will be due for adderal renewal 04/20. Ok to renew? Pt has new insurance, medicaid documented in this encounter Plan of Treatment Upcoming Encounters Date Type Department Care Team (Late st Contact Info) Description 09/08/2024 10:10 AM CREPING MACHINE OPERATOR HELPER Office Visit [facility] Medical Group Family Medicine - [place] [address] [facility] [address] [place] [address] Samantha Sanders MD [address] [place] [address] documented as of this encounter Visit Diagnoses Diagnosis Attention deficit disorder, unspecified hyperactivity presence documented in this encounter Additional Health Concerns Assessment Noted Time PHQ-9 Depression Total Score: 7 01/18/20 19 12:34 PM CDT documented as of this encounter Care Teams Corporate Traffic Manager Relationship Specialty Start Date End Date Vianey Meyer FNP [address] [place] [address] PCP - General Nurse Practitioner Family 06/21/1805/22/21 documented as of this encounter
--- OUTSIDE RECORDS SUMMARY | 2024-07-24 00:48 | XMS_ITS | Encounter Summary ---
Author Organization [facility] Address [address] [place] [address]. [place], [place] [address] [place], [place] [phone] Care Team Providers Care Receiving Distribution Station Operator Name Role Phone Vianey Meyer Primary Care Provider Reason for Visit * Reason Onset Date Comments Lab Results 08/07/2020 Encounter Details Date Type Department Care Team (Late st Contact Info) Description 08/07/2020 Telephone [facility] Family & Internal Medicine [place] [address] [place] [address] Vianey Meyer FNP [facility] [place] [address] Lab Results Social History Tobacco [...] COVID-19? No / Unsure 07/31/2020 12:03 PM PEDIATRIC DENTIST documented as of this encounter Progress Notes * Susy M Neisz, MA - 08/09/2020 11:42 AM CST No answer and no voice mail 08/09/20 tn ATRIC DENTIST * CHACORTA Cobb - 08/09/2020 11:02 AM CST Phentermine filled. BMI 30.9. She will need to follow up with Vianey in 30 days. ATRIC DENTIST * Sneha Batista - 08/09/2020 9:45 AM CST Patient called in asking about this phentermine. She is asking for this to be sent to [facility]. ATRIC DENTIST ATRIC DENTIST * Jacqueline Schilling MA - 08/07/2020 1:04 PM CST Pt was asking about phentermine? [employer] does not have the correct tube to add on a HGB A1C. Pt called in and pt voiced understanding to LDL (bad cholesterol) quite a bit elevated at 184----wecan try a strict diet reducing carbs, animal fats and fried foods. I would suggest rechecking lipids in 3 months and if no improvement, may need to discuss starting a statin. Vit D low at 26. ---have her increase her Vit D3 by 1000 IU once daily. ATRIC DENTIST * Jacqueline Schilling MA - 08/07/2020 1:03 PM CST ----- Message from CHACORTA Cobb sent at 08/03/2020 2:33 PM PEDIATRIC DENTIST ----- Glucose sl elevated at 102--add on [...] Vit D3 by 1000 IU once daily. ATRIC DENTIST documented in this encounter Plan of Treatment Upcoming Encounters Date Type Department Care Team (Late st Contact Info) Description 09/08/2024 10:10 AM PEDIATRIC DENTIST Office Visit [facility] Family Medicine - [place] [address] [facility] [address] [place] [address] Samantha Sanders MD [address] [place] [address] documented as of this encounter Visit Diagnoses Diagnosis BMI 30.0-30.9,adult- Primary Body Mass Index 30.0-30.9, adult Obesity (BMI 30-39.9) Obesity, unspecified documented in this encounter Additional Health Concerns Assessment Noted Time PHQ-9 Depression Total Score: 7 01/18/20 19 12:34 PM CDT documented as of this encounter Care Teams Receiving Distribution Station Operator Relationship Specialty Start Date End Date Vianey Meyer FNP [address] [place] [address] PCP - General Nurse Practitioner Family 06/21/1805/22/21 documented as of this encounter
--- OUTSIDE RECORDS SUMMARY | 2024-07-24 00:48 | XMS_ITS | Encounter Summary ---
Author Organization [facility] Address [address] [place] [address]. [place], [place] [address] [place], [place] [phone] Care Team Providers Care Circular Knife Cutter Machine Name Role Phone Vianey Meyer Primary Care Provider [phone] Reason for Visit * Reason Onset Date Comments Medication Request 08/27/2020 Encounter Details Date Type Department Care Team (Late st Contact Info) Description 08/27/2020 Telephone [facility] Medical Group Family & Internal Medicine [place] [address] [place] [address] Vianey Meyer FNP [facility] [place] [address] Medication Request Social History Tobacco [...] COVID-19? No / Unsure 07/31/2020 12:03 PM LICENSING DIRECTOR documented as of this encounter Progress Notes * Alanna Almaguer MA - 08/27/2020 5:47 PM CST Patient notified and v/u . New rx pended for provider NSING DIRECTOR * EMANI Crowder - 08/27/2020 4:27 PM CST Okay for covid test for work. She will need to surrender the rest of the previous script to the pharmacy prior to getting the new one. NSING DIRECTOR * Susy Perry MA - 08/27/2020 4:20 PM CST Patient states she does have some left but she is wanting to cut them in half and these are capsules that she has. States the whole is just to much for her. Also requesting covid test to go back to work. Denies any symptoms. NSING DIRECTOR * EMANI Crowder - 08/27/2020 3:06 PM CST It looks like the initial script for phentermine was prescribed the Jul. Does she still have some of the old script? NSING DIRECTOR * Sneha Batista - 08/27/2020 2:26 PM CST Patient is asking if you would order a COVID-19 test for Raffi. She does not have an symptoms but is needing it to go back to work. She is also asking for the phentermine tablets to be sent in so she can cut it in half. NSING DIRECTOR documented in this encounter Plan of Treatment Upcoming Encounters Date Type Department Care Team (Late st Contact Info) Description 09/08/2024 10:10 AM LICENSING DIRECTOR Office Visit [facility] Medical Group Family Medicine - [place] [address] [place] [address] Samantha Sanders MD [address] [place] [address] documented as of this encounter Visit Diagnoses Diagnosis Encounter for screening laboratory testing for severe acute respiratory syndrome coronavirus 2 (SARS-CoV-2)- Primary Anxiety Anxiety state, unspecified BMI 30.0-30.9,adult Body Mass Index 30.0-30.9, adult documented in this encounter Additional Health Concerns Assessment Noted Time PHQ-9 Depression Total Score: 7 01/18/20 19 12:34 PM CDT documented as of this encounter Care Teams Circular Knife Cutter Machine Relationship Specialty Start Date End Date Vianey Meyer FNP [address] [place] [address] PCP - General Nurse Practitioner Family 06/21/1805/22/21 documented as of this encounter
--- OUTSIDE RECORDS SUMMARY | 2024-07-24 00:48 | XMS_ITS | Encounter Summary ---
Author Organization [facility] Address [address] [place] [address]. [place], [place] [address] [place], [place] [id number] Care Team Providers Care Sludge Filtration Operator Name Role Phone Vianey Meyer Primary Care Provider [phone] Reason for Visit * Reason Onset Date Comments Follow Up Call 02/21/2021 Encounter Details Date Type Department Care Team (Late st Contact Info) Description 02/21/2021 Telephone [facility] Group Family & Internal Medicine [place] [id number] [place] [address] Vianey Meyer FNP [address] [place] [address] Follow Up Call Social History Tobacco Use Types Packs/Day Years Used Date Smoking Tobacco: Every Day Cigarettes 0.3 20 Smokeless Tobacco: Never Comments:provider to beauty counselor Alcohol Use Standard Drinks/Week Comments Yes [...] Progress Notes * Susy Perry MA - 02/21/2021 2:31 PM CDT Patient requesting Vyvanse to be adjusted. Appt made for GENEVA Beasley. * Sneha Batista - 02/21/2021 1:13 PM CDT Patient is asking for a call back from Susy. documented in this encounter Plan of Treatment Upcoming Encounters Date Type Department Care Team (Late st Contact Info) Description 09/08/2024 10:10 AM LOCK ASSEMBLER Office Visit [facility] Family Medicine - [place] [address] [facility] [address] [place] [address] Samantha Sanders MD [address] [place] [address] documented as of this encounter Visit Diagnoses Not on filedocumented in this encounter Additional Health Concerns Assessment Noted Time PHQ-9 Depression Total Score: 2 12/19/19 21 4:22 PM CDT documented as of this encounter Care Teams Sludge Filtration Operator Relationship Specialty Start Date End Date Vianey Meyer FNP [address] [place] [address] PCP - General Nurse Practitioner Family 06/21/1805/22/21 documented as of this encounter
--- OUTSIDE RECORDS SUMMARY | 2024-07-24 00:48 | XMS_ITS | Encounter Summary ---
Author Organization [facility] Address [address] [place] [address]. [place], [place] [phone] [place] [address] Care Team Providers Care Putty Mixer And Applier Name Role Phone Vianey Meyer EMANI Primary Care Provider [phone] Encounter Details Date Type Department Care Team (Latest Contact Info) Description 05/03/2020 Scan HEALTH INFO SRVCS Scanned, Documents Social [...] Contact Info) Description 09/08/2024 10:10 AM MOLD CHECKER Office Visit [facility] Group Family Medicine - [place] [address] [place] [phone] Samantha Sanders MD [address] [place], [place] [phone] documented as of this encounter Visit Diagnoses Not on filedocumented in this encounter Additional Health Concerns Infection Onset Date Last Indicated Resolved Time COVID-19 Rule Out 06/06/2020 06/06/2020 08/05/2020 12:33 AM MOLD CHECKER Assessment Noted Time PHQ-9 Depression Total Score: 7 01/18/20 19 12:34 PM CDT documented as of this encounter Care Teams Putty Mixer And Applier Relationship Specialty Start Date End Date Vianey Meyer FNP [address] [place] [address] PCP - General Nurse Practitioner Family 06/21/1805/22/21 documented as of this encounter
--- OUTSIDE RECORDS SUMMARY | 2024-07-24 00:48 | XMS_ITS | Encounter Summary ---
Author Organization [facility] Address [address] [place] [address]. [place], [place] [id number] [place], [place] [id number] Care Team Providers Care Automobile Radio Repairer Name Role Phone Vianey Meyer Primary Care Provider [phone] Reason for Visit * Reason Onset Date Comments Medication Request 07/09/2020 Encounter Details Date Type Department Care Team (Late st Contact Info) Description 07/09/2020 Telephone [facility] Family & Internal Medicine [address] [address] Vianey Meyer FNP [facility] [place], [place] [id number] Medication Request Social History Tobacco Use Types [...] encounter Progress Notes * Sneha Batista - 07/10/2020 9:01 AM CST Patient called back in advised of the following, patient voiced understanding. Patient does not have insurance so she will wait until she has insurance again to have an appointment and lab work. SAFETY MANAGER * Susy Perry MA - 07/10/2020 8:43 AM CST Lm 07/10/20 tn SAFETY MANAGER * CHACORTA Cobb - 07/09/2020 4:35 PM CST I do not fill phentermine without appt. Vit D prescriptions only for Vit D less than 10-15. Would need to check Vit D first. SAFETY MANAGER * Mila Liu - 07/09/2020 12:50 PM CST Pt requesting to see if she can get a vitamin D prescription. She thinks she is low and that's whatis causing her to feel fatigue. She also has been gaining weight since January. She is wondering if she could try for a month to stop the adderall and add phentermine to help with weight loss and all things that the adderall helps with. SAFETY MANAGER documented in this encounter Plan of Treatment Upcoming Encounters Date Type Department Care Team (Late st Contact Info) Description 09/08/2024 10:10 AM SITE SAFETY MANAGER Office Visit [facility] Family Medicine - [place] [address] [place] [address] Samantha Sanders MD [address] [place] [phone] documented as of this encounter Visit Diagnoses Not on filedocumented in this encounter Additional Health Concerns Infection Onset Date Last Indicated Resolved Time COVID-19 Rule Out 06/06/2020 06/06/2020 08/05/2020 12:33 AM SITE SAFETY MANAGER Assessment Noted Time PHQ-9 Depression Total Score: 7 01/18/20 19 12:34 PM CDT documented as of this encounter Care Teams Automobile Radio Repairer Relationship Specialty Start Date End Date Vianey Meyer FNP [address] [place] [address] PCP - General Nurse Practitioner Family 06/21/1805/22/21 documented as of this encounter
--- OUTSIDE RECORDS SUMMARY | 2024-07-24 00:48 | XMS_ITS | Encounter Summary ---
Author Organization [facility] Address [address] [place] [address]. [place], [place] [address] [place], [place] [phone] Care Team Providers Care Sash Maker Name Role Phone Vianey Meyer Primary Care Provider [phone] Encounter Details Date Type Department Care Team (Late st Contact Info) Description 12/23/2019 Orders Only [facility] Family & Internal Medicine [facility] [address] [place] [address] Vianey Meyer FNP [facility] [place] [address] Social History Tobacco Use Types Packs/Day Years [...] encounter Progress Notes * EMANI Crowder - 12/23/2019 12:40 PM CDT Medication refill sent documented in this encounter Plan of Treatment Upcoming Encounters Date Type Department Care Team (Late st Contact Info) Description 09/08/2024 10:10 AM KAIWHAKAHAERE Office Visit [facility] Family Medicine - [place] [address] [facility] [address] [place] [address] Samantha Sanders MD [address] [place] [address] documented as of this encounter Visit Diagnoses Diagnosis Attention deficit disorder, unspecified hyperactivity presence documented in this encounter Additional Health Concerns Assessment Noted Time PHQ-9 Depression Total Score: 7 01/18/20 19 12:34 PM CDT documented as of this encounter Care Teams Sash Maker Relationship Specialty Start Date End Date Vianey Meyer FNP [facility] [place] [address] PCP - General Nurse Practitioner Family 06/21/1805/22/21 documented as of this encounter
--- OUTSIDE RECORDS SUMMARY | 2024-07-24 00:48 | XMS_ITS | Encounter Summary ---
Author Organization [facility] Address [address] [place] [address]. [place], [place] [address] [place], [place] [phone] Care Team Providers Care Medical Receptionist Biller Name Role Phone Vianey Meyer Primary Care Provider [phone] Reason for Visit * Reason Onset Date Comments Medication Request 01/04/2021 Encounter Details Date Type Department Care Team (Late st Contact Info) Description 01/04/2021 Telephone [facility] Medical [facility] Family & Internal Medicine [place] [address] [place] [address] Vianey Meyer FNP [facility] [place] [address] Medication Request Social History Tobacco Use Types Packs/Day Years Used Date Smoking Tobacco: Every Day Cigarettes 0.3 20 Smokeless Tobacco: Never Comments:provider to alcoholic counselor Alcohol Use Standard Drinks/Week Comments Yes [...] as of this encounter Progress Notes * Martina White MA - 01/04/2021 2:16 PM CDT Pt informed, verbalized understanding but then stated that she is going to open the capsules and divide the dose in applesauce as per the vyvanse website as she states it suggests this for the issue of tiredness. I informed her she should discuss this with her pharmacist as this is not how it's prescribed, and the medication capsule may be a slow release that is supposed to work in that way, attempting to divide the dose may change that. * EMANI Crowder - 01/04/2021 12:50 PM CDT We can switch it down at her next refill. No she does not need an ointment unless she would like one * Sneha Batista - 01/04/2021 12:23 PM CDT Patient called in asking if you would switch her back down to Vyvanse 40 MG because the 70 MG is making her tired. She is also asking if she needs to have a topical ointment for her tick bite since it is now itching? documented in this encounter Plan of Treatment Upcoming Encounters Date Type Department Care Team (Late st Contact Info) Description 09/08/2024 10:10 AM BRAZING MACHINE OPERATOR Office Visit [facility] Family Medicine - [place] [address] [place] [address] Samantha Sanders MD [address] [place], [place] [phone] documented as of this encounter Visit Diagnoses Not on filedocumented in this encounter Additional Health Concerns Assessment Noted Time PHQ-9 Depression Total Score: 2 12/19/19 21 4:22 PM CDT documented as of this encounter Care Teams Medical Receptionist Biller Relationship Specialty Start Date End Date Vianey Meyer FNP [address] [place] [address] PCP - General Nurse Practitioner Family 06/21/1805/22/21 documented as of this encounter
--- OUTSIDE RECORDS SUMMARY | 2024-07-24 00:48 | XMS_ITS | Encounter Summary ---
Author Organization [facility] Address [address] [place] [address]. [place] [id number] [place], [place] [phone] Care Team Providers Care Academic Support Center Director Name Role Phone Vianey Meyer Primary Care Provider [phone] Reason for Visit * Reason Comments Refill Request Encounter Details Date Type Department Care Team (Late st Contact Info) Description 04/17/2021 Telephone [facility] Family & Internal Medicine [facility] [address] [place] [address] Vianey Meyer FNP [address] [place], [place] [phone] Refill Request Social History Tobacco Use Types [...] Progress Notes * Susy Perry MA - 04/17/2021 2:07 PM CDT Patient requesting to titrate up to 70 mg on the vyvanse. She would like 20 mg for now to take withher 50 mg. documented in this encounter Plan of Treatment Upcoming Encounters Date Type Department Care Team (Late st Contact Info) Description 09/08/2024 10:10 AM TANKAGE SUPERVISOR Office Visit [facility] Family Medicine - [place] [address] [facility] [address] [place] [address] Samantha Sanders MD [address] [place] [address] documented as of this encounter Visit Diagnoses Not on filedocumented in this encounter Additional Health Concerns Assessment Noted Time PHQ-9 Depression Total Score: 2 12/19/19 21 4:22 PM CDT documented as of this encounter Care Teams Academic Support Center Director Relationship Specialty Start Date End Date Vianey Meyer FNP [address] [place] [address] PCP - General Nurse Practitioner Family 06/21/1805/22/21 documented as of this encounter
--- OUTSIDE RECORDS SUMMARY | 2024-07-24 00:48 | XMS_ITS | Encounter Summary ---
Author Organization [facility] Address [address] [place] [address]. [place], [place] [address] [place] [address] Care Team Providers Care Private Duty Rn Name Role Phone Vianey Meyer EMANI Primary Care Provider [phone] Reason for Visit * Reason Onset Date Comments Information 03/10/2020 Encounter Details Date Type Department Care Team (Late st Contact Info) Description 03/10/2020 Telephone [facility] Family & Internal Medicine [facility] [address] [place] [address] Gale Dempsey APNP [address] [place] [address] Information Social History Tobacco Use Types Packs/Day [...] Progress Notes * Alyssia Smith RN - 03/12/2020 9:32 AM CDT Patient picked it up Thursday. It is clear and doing fine. She still has to do her blood work. She does not need to antibiotic at this time. documented in this encounter Plan of Treatment Upcoming Encounters Date Type Department Care Team (Late st Contact Info) Description 09/08/2024 10:10 AM CERTIFIED REAL ESTATE APPRAISER Office Visit [facility] Family Medicine - [place] [address] [facility] [address] [place] [address] Samantha Sanders MD [address] [place] [address] documented as of this encounter Visit Diagnoses Not on filedocumented in this encounter Additional Health Concerns Assessment Noted Time PHQ-9 Depression Total Score: 7 01/18/20 19 12:34 PM CDT documented as of this encounter Care Teams Private Duty Rn Relationship Specialty Start Date End Date Vianey Meyer FNP [address] [place] [address] PCP - General Nurse Practitioner Family 06/21/1805/22/21 documented as of this encounter
--- OUTSIDE RECORDS SUMMARY | 2024-07-24 00:48 | XMS_ITS | Encounter Summary ---
Author Organization [facility] Address [address] [place] [address]. [place], [place] [address] [place] [address] Care Team Providers Care Streetcar Motorman Name Role Phone Faith Galvez ENGINEER Primary Care Provider Unavailabl e Encounter Details Date Type Department Care Team (Latest Contact Info) Description 05/23/2021 Travel Social History Tobacco Use Types Packs/Day Years Used Date Smoking Tobacco: Every Day Cigarettes 0.3 20 Smokeless Tobacco: Never Comments:provider to insurance counsel Alcohol Use Standard Drinks/Week Comments Yes [...] ( Contact Info) Description 09/08/2024 10:10 AM WAX POT TENDER Office Visit [facility] Family Medicine - [place] [address] [facility] [address] [place] [address] Samantha Sanders MD [address] [place] [address] documented as of this encounter Visit Diagnoses Not on filedocumented in this encounter Additional Health Concerns Assessment Noted Time PHQ-9 Depression Total Score: 2 05/23/20 21 8:38 AM CDT documented as of this encounter Care Teams Streetcar Motorman Relationship Specialty Start Date End Date Faith Galvez, ENGINEER PCP - General NURSE PRACTITIONER 05/23/21 04/20/22 documented as of this encounter
--- OUTSIDE RECORDS SUMMARY | 2024-07-24 00:48 | XMS_ITS | Encounter Summary ---
Author Organization [facility] Address [address] [place] [address]. [place], [place] [address] [place], [place] [phone] Care Team Providers Care Acid Purification Equipment Operator Name Role Phone Vianey Meyer Primary Care Provider [phone] Encounter Details Date Type Department Care Team (Late st Contact Info) Description 03/20/2020 Orders Only [facility] Medical Group Family & Internal Medicine [place] [address] [place] [address] Vianey Meyer FNP [facility]1 [place] [address] Social History Tobacco Use Types Packs/Day Years [...] encounter Progress Notes * EMANI Crowder - 03/20/2020 11:42 PM CDT Medication refill sent to [facility]. documented in this encounter Plan of Treatment Upcoming Encounters Date Type Department Care Team (Late st Contact Info) Description 09/08/2024 10:10 AM OCCUPATIONAL MEDICINE PHYSICIAN Office Visit [facility] Family Medicine - [place] [address] [facility] [address] [place] [address] Samantha Sanders MD [address] [place] [address] documented as of this encounter Visit Diagnoses Diagnosis Attention deficit disorder, unspecified hyperactivity presence- Primary documented in this encounter Additional Health Concerns Assessment Noted Time PHQ-9 Depression Total Score: 7 01/18/20 19 12:34 PM CDT documented as of this encounter Care Teams Acid Purification Equipment Operator Relationship Specialty Start Date End Date Vianey Meyer FNP [address] [place] [address] PCP - General Nurse Practitioner Family 06/21/1805/22/21 documented as of this encounter
--- OUTSIDE RECORDS SUMMARY | 2024-07-24 00:48 | XMS_ITS | Encounter Summary ---
Author Organization [facility] Address [address] [place] [address]. [place], [place] [address] [place], [place] [phone] Care Team Providers Care Structural Biologist Name Role Phone Vianey Meyer Primary Care Provider [phone] Encounter Details Date Type Department Care Team (Late st Contact Info) Description 11/09/2020 Orders Only [facility] Medical Group Family & Internal Medicine [address] [phone] Vianey Meyer FNP [facility] [place] [address] Social History Tobacco Use Types Packs/Day Years [...] encounter Progress Notes * EMANI Crowder - 11/09/2020 2:54 PM CDT Increased dose of vyvanse sent to pharmacy documented in this encounter Plan of Treatment Upcoming Encounters Date Type Department Care Team (Late st Contact Info) Description 09/08/2024 10:10 AM ELECTRONICS SYSTEM MECHANIC Office Visit [facility] Family Medicine - [place] [address] [facility] [address] [place] [address] Samantha Sanders MD [address] [place] [address] documented as of this encounter Visit Diagnoses Diagnosis Attention deficit disorder, unspecified hyperactivity presence documented in this encounter Additional Health Concerns Assessment Noted Time PHQ-9 Depression Total Score: 7 01/18/20 19 12:34 PM CDT documented as of this encounter Care Teams Structural Biologist Relationship Specialty Start Date End Date Vianey Meyer FNP [address] [place] [address] PCP - General Nurse Practitioner Family 06/21/1805/22/21 documented as of this encounter
--- OUTSIDE RECORDS SUMMARY | 2024-07-24 00:48 | XMS_ITS | Encounter Summary ---
Author Organization [facility] Address [address] [place] [address]. [place], [place] [address] [place], [place] [phone] Care Team Providers Care Line Service Attendant Name Role Phone Vianey Meyer Primary Care Provider [phone] Encounter Details Date Type Department Care Team (Late st Contact Info) Description 04/25/2021 Orders Only [facility] Medical Group Family & Internal Medicine [place] [address] [place] [phone] Vianey Meyer FNP [facility] [place] [address] Social History Tobacco Use Types Packs/Day Years [...] encounter Progress Notes * EMANI Crowder - 04/25/2021 6:18 PM CDT medication refill sent to pharmacy. documented in this encounter Plan of Treatment Upcoming Encounters Date Type Department Care Team (Late st Contact Info) Description 09/08/2024 10:10 AM WHEEL PRESS OPERATOR Office Visit [facility] Medical Group Family Medicine - [place] [address] [place] [address] Samantha Sanders MD [address] [place], [place] [address] documented as of this encounter Visit Diagnoses Diagnosis Attention deficit hyperactivity disorder (ADHD), combined type- Primary documented in this encounter Additional Health Concerns Assessment Noted Time PHQ-9 Depression Total Score: 2 12/19/19 21 4:22 PM CDT documented as of this encounter Care Teams Line Service Attendant Relationship Specialty Start Date End Date Vianey Meyer FNP [address] [place] [address] PCP - General Nurse Practitioner Family 06/21/1805/22/21 documented as of this encounter
--- OUTSIDE RECORDS SUMMARY | 2024-07-24 00:48 | XMS_ITS | Encounter Summary ---
Author Organization [facility] Address [address] [place] [address]. [place], [place] [address] [place] [address] Care Team Providers Care Factory Engineer Name Role Phone Vianey Meyer EMANI Primary Care Provider [phone] Encounter Details Date Type Department Care Team (Latest Contact Info) Description 05/15/2021 Travel Social History Tobacco Use Types Packs/Day Years Used Date Smoking Tobacco: Every Day Cigarettes 0.3 20 Smokeless Tobacco: Never Comments:provider to financial counselor Alcohol Use Standard Drinks/Week Comments Yes [...] ( Contact Info) Description 09/08/2024 10:10 AM SCHOOL PROGRAM DIRECTOR Office Visit [facility] Family Medicine - [place] [address] [facility] [address] [place] [address] Samantha Sanders MD [address] [place] [address] documented as of this encounter Visit Diagnoses Not on filedocumented in this encounter Additional Health Concerns Assessment Noted Time PHQ-9 Depression Total Score: 2 12/19/19 21 4:22 PM CDT documented as of this encounter Care Teams Factory Engineer Relationship Specialty Start Date End Date Vianey Meyer FNP [address] [place] [address] PCP - General Nurse Practitioner Family 06/21/1805/22/21 documented as of this encounter
--- OUTSIDE RECORDS SUMMARY | 2024-07-24 00:48 | XMS_ITS | Encounter Summary ---
Author Organization [facility] Address [address] [place] [address]. [place] [phone] Care Team Providers Care Insecticide Mixer Name Role Phone Vianey Meyer Primary Care Provider [phone] Reason for Visit * Reason Onset Date Comments Refill Request 01/24/2020 Encounter Details Date Type Department Care Team (Late st Contact Info) Description 01/24/[address] [facility] Family & Internal Medicine [place] [address] [place] [address] Vianey Meyer FNP [address] [place], [place] [phone] Refill Request Social History Tobacco Use Types [...] encounter Progress Notes * EMANI Crowder - 01/24/2020 2:27 PM CDT Okay to set up RX * Estela Sheth MA - 01/24/2020 2:03 PM CDT Last ov 11/04/19 and last refill 01/02/20. Pt wants to change from Adderall 20 BID to Adderall 10 TIDas she doesn't like scoring them. Pt was once on Adderall 10 ER but pt does not want the extended release. documented in this encounter Plan of Treatment Upcoming Encounters Date Type Department Care Team (Late st Contact Info) Description 09/08/2024 10:10 AM COCOA ROASTER Office Visit [facility] Family Medicine - [place] [address] [facility] [address] [place] [address] Samantha Sanders MD [address] [place] [address] documented as of this encounter Visit Diagnoses Diagnosis Attention deficit disorder, unspecified hyperactivity presence documented in this encounter Additional Health Concerns Assessment Noted Time PHQ-9 Depression Total Score: 7 01/18/20 19 12:34 PM CDT documented as of this encounter Care Teams Insecticide Mixer Relationship Specialty Start Date End Date Vianey Meyer FNP [address] [place] [address] PCP - General Nurse Practitioner Family 06/21/1805/22/21 documented as of this encounter
--- OUTSIDE RECORDS SUMMARY | 2024-07-24 00:48 | XMS_ITS | Encounter Summary ---
Author Organization [facility] Address [address] [place] [address]. [place], [place] [address] [place] [address] Care Team Providers Care Car Stower Name Role Phone Vianey Meyer EMANI Primary Care Provider [phone] Encounter Details Date Type Department Care Team (Latest Contact Info) Description 12/18/2020 Travel Social History Tobacco Use Types Packs/Day Years Used Date Smoking Tobacco: Every Day Cigarettes 0.3 20 Smokeless Tobacco: Never Comments:provider to estate planning counselor Alcohol Use Standard Drinks/Week Comments Yes [...] ( Contact Info) Description 09/08/2024 10:10 AM OPEN HEARTH STOCKYARD SUPERVISOR Office Visit [facility] Family Medicine - [place] 7342 [facility] 162 [place] [address] Samantha Sanders MD [address] [place] [address] documented as of this encounter Visit Diagnoses Not on filedocumented in this encounter Additional Health Concerns Assessment Noted Time PHQ-9 Depression Total Score: 2 12/19/19 21 4:22 PM CDT documented as of this encounter Care Teams Car Stower Relationship Specialty Start Date End Date Vianey Meyer FNP [address] [place] [address] PCP - General Nurse Practitioner Family 06/21/1805/22/21 documented as of this encounter
--- OUTSIDE RECORDS SUMMARY | 2024-07-24 00:48 | XMS_ITS | Encounter Summary ---
Author Organization [facility] Address [address] [place] [address]. [place], [place] [address] [place], [place] [phone] Care Team Providers Care Centerless Grinder Set Up Operator Name Role Phone Vianey Meyer Primary Care Provider [phone] Encounter Details Date Type Department Care Team (Late st Contact Info) Description 11/30/2020 Orders Only [facility] Medical Group Family & Internal Medicine [place] [address] [place] [phone] Vianey Meyer FNP [facility] [address] [place] [address] Social History Tobacco Use Types Packs/Day Years [...] encounter Progress Notes * EMANI Crowder - 11/30/2020 2:49 PM CDT Medication dose increase sent to pharmacy. If pharmacy will not fill increase early, she will have to wait. documented in this encounter Plan of Treatment Upcoming Encounters Date Type Department Care Team (Late st Contact Info) Description 09/08/2024 10:10 AM PLASTIC WORKER Office Visit [facility] Family Medicine - [place] [address] [place] [address] Samantha Sanders MD [address] [place], [place] [address] documented as of this encounter Visit Diagnoses Diagnosis Attention deficit disorder, unspecified hyperactivity presence documented in this encounter Additional Health Concerns Assessment Noted Time PHQ-9 Depression Total Score: 7 01/18/20 12:34 PM CDT documented as of this encounter Care Teams Centerless Grinder Set Up Operator Relationship Specialty Start Date End Date Vianey Meyer FNP [address] [place] [address] PCP - General Nurse Practitioner Family 06/21/1805/22/21 documented as of this encounter
--- OUTSIDE RECORDS SUMMARY | 2024-07-24 00:48 | XMS_ITS | Encounter Summary ---
Author Organization [facility] Address [address] [place] [address]. [place], [place] [address] [place] [address] Care Team Providers Care Taxi Servicer Name Role Phone Vianey Meyer EMANI Primary Care Provider [phone] Encounter Details Date Type Department Care Team (Latest Contact Info) Description 10/22/2020 Travel Social History Tobacco Use Types Packs/Day [...] ( Contact Info) Description 09/08/2024 10:10 AM SUMMER ANALYST Office Visit [facility] Family Medicine - [place] [address] [place] [phone] Samantha Sanders MD [address] [place] [address] documented as of this encounter Visit Diagnoses Not on filedocumented in this encounter Additional Health Concerns Assessment Noted Time PHQ-9 Depression Total Score: 7 01/18/20 19 12:34 PM CDT documented as of this encounter Care Teams Taxi Servicer Relationship Specialty Start Date End Date Vianey Meyer FNP [address] [place] [address] PCP - General Nurse Practitioner Family 06/21/1805/22/21 documented as of this encounter
--- OUTSIDE RECORDS SUMMARY | 2024-07-24 00:48 | XMS_ITS | Encounter Summary ---
Author Organization [facility] Address [address] [place] [address]. [place] [address] Care Team Providers Care Engrosser Name Role Phone Vianey Meyer Primary Care Provider [phone] Reason for Visit * Reason Onset Date Comments Medication Problem 11/30/2020 Encounter Details Date Type Department Care Team (Late st Contact Info) Description 11/30/2020 Telephone [facility] Family & Internal Medicine [place] [address] [place] [address] Vianey Meyer FNP [address] [place] [address] Medication Problem Social History Tobacco [...] Progress Notes * Alanna Almaguer MA - 11/30/2020 2:44 PM CDT Patient notified and v/u . Please send prescription * Susy Perry MA - 11/30/2020 2:21 PM CDT Lm 11/30/20 tn * EMANI Crowder - 11/30/2020 12:34 PM CDT We can increase this but they wont fill it until the most likely. * Susy Perry MA - 11/30/2020 12:24 PM CDT Requesting an increase of the Vyvanse. States it does not last all day and she gets tired at the end of the day. [facility]. tn documented in this encounter Plan of Treatment Upcoming Encounters Date Type Department Care Team (Late st Contact Info) Description 09/08/2024 10:10 AM MAC DEVELOPER Office Visit [facility] Family Medicine - [place] [address] [facility] [address] [place] [address] Samantha Sanders MD [address] [place] [address] documented as of this encounter Visit Diagnoses Not on filedocumented in this encounter Additional Health Concerns Assessment Noted Time PHQ-9 Depression Total Score: 7 01/18/20 19 12:34 PM CDT documented as of this encounter Care Teams Engrosser Relationship Specialty Start Date End Date Vianey Meyer FNP [address] [place] [address] PCP - General Nurse Practitioner Family 06/21/1805/22/21 documented as of this encounter
--- OUTSIDE RECORDS SUMMARY | 2024-07-24 00:48 | XMS_ITS | Encounter Summary ---
Author Organization [facility] Address [address] [place] [address]. [place], [place] [id number] [place], [place] [id number] Care Team Providers Care Ui Application Developer Name Role Phone Vianey Meyer Primary Care Provider [phone] Encounter Details Date Type Department Care Team (Late st Contact Info) Description 04/18/2021 Orders Only [facility] Medical Group Family & Internal Medicine [place] [address] [place] [phone] Vianey Meyer FNP [facility][note 3]1 [place] [address] Social History Tobacco Use Types Packs/Day Years Used Date Smoking Tobacco: Every Day Cigarettes 0.3 20 Smokeless Tobacco: Never Comments:provider to loan counselor Alcohol Use Standard [...] encounter Progress Notes * EMANI Crowder - 04/18/2021 1:16 PM CDT Medication dose changes sent to pharmacy documented in this encounter Plan of Treatment Upcoming Encounters Date Type Department Care Team (Late st Contact Info) Description 09/08/2024 10:10 AM DINKEY ENGINE FIRER Office Visit [facility] Medical Group Family Medicine - [place] [address] [place] [address] Samantha Sanders MD [address] [place], [place] [address] documented as of this encounter Visit Diagnoses Diagnosis Attention deficit hyperactivity disorder (ADHD), combined type- Primary documented in this encounter Additional Health Concerns Assessment Noted Time PHQ-9 Depression Total Score: 2 12/19/19 21 4:22 PM CDT documented as of this encounter Care Teams Ui Application Developer Relationship Specialty Start Date End Date Vianey Meyer FNP [address] [place] [address] PCP - General Nurse Practitioner Family 06/21/1805/22/21 documented as of this encounter
--- OUTSIDE RECORDS SUMMARY | 2024-07-24 00:48 | XMS_ITS | Encounter Summary ---
Author Organization [facility] Address [address] [place] [address]. [place], [place] [address] [place] [address] Care Team Providers Care Contact Agent Name Role Phone Vianey Meyer EMANI Primary Care Provider [phone] Encounter Details Date Type Department Care Team (Latest Contact Info) Description 07/31/2020 Travel Social History Tobacco Use Types Packs/Day [...] COVID-19? No / Unsure 07/31/2020 12:03 PM GUTTER MOUTH CUTTER documented as of this encounter Plan of Treatment Upcoming Encounters Date Type Department Care Team ( Contact Info) Description 09/08/2024 10:10 AM GUTTER MOUTH CUTTER Office Visit [facility] Medical Group Family Medicine - [place] [address] [place] [phone] Samantha Sanders MD [address] [place] [address] documented as of this encounter Visit Diagnoses Not on filedocumented in this encounter Additional Health Concerns Infection Onset Date Last Indicated Resolved Time COVID-19 Rule Out 06/06/2020 06/06/2020 08/05/2020 12:33 AM GUTTER MOUTH CUTTER Assessment Noted Time PHQ-9 Depression Total Score: 7 01/18/20 12:34 PM CDT documented as of this encounter Care Teams Contact Agent Relationship Specialty Start Date End Date Vianey Meyer FNP [address] [place] [address] PCP - General Nurse Practitioner Family 06/21/1805/22/21 documented as of this encounter
--- OUTSIDE RECORDS SUMMARY | 2024-07-24 00:48 | XMS_ITS | Encounter Summary ---
Author Organization [facility] Address [address] [place] [address]. [place] [id number] [place], [place] [phone] Care Team Providers Care Wound Care Rn Name Role Phone Vianey Meyer Primary Care Provider [phone] Encounter Details Date Type Department Care Team (Late st Contact Info) Description 02/21/2020 Orders Only [facility] Medical Group Family & Internal Medicine [facility] [address] [place] [address] Vianey Meyer FNP [facility] [place] [address] Social History Tobacco Use Types Packs/Day Years [...] encounter Progress Notes * EMANI Crowder - 02/21/2020 1:09 PM CDT ADD medication sent to pharmacy documented in this encounter Plan of Treatment Upcoming Encounters Date Type Department Care Team (Late st Contact Info) Description 09/08/2024 10:10 AM BACTERIOLOGIST MEDICAL Office Visit [facility] Family Medicine - [place] [address] [facility] [address] [place] [address] Samantha Sanders MD [address] [facility] [address] [place] [address] documented as of this encounter Visit Diagnoses Diagnosis Attention deficit disorder, unspecified hyperactivity presence- Primary documented in this encounter Additional Health Concerns Assessment Noted Time PHQ-9 Depression Total Score: 7 01/18/20 19 12:34 PM CDT documented as of this encounter Care Teams Wound Care Rn Relationship Specialty Start Date End Date Vianey Meyer FNP [address] [place] [address] PCP - General Nurse Practitioner Family 06/21/1805/22/21 documented as of this encounter
--- OUTSIDE RECORDS SUMMARY | 2024-07-24 00:48 | XMS_ITS | Encounter Summary ---
Author Organization [facility] Address [address] [place] [address]. [place] [id number] [place], [place] [phone] Care Team Providers Care Solutions Market Consultant Name Role Phone Vianey Meyer Primary Care Provider [phone] Reason for Visit * Reason Onset Date Comments Prior Authorization 11/19/2020 Encounter Details Date Type Department Care Team (Late st Contact Info) Description 11/19/2020 Telephone [facility] Medical Group Family & Internal Medicine [facility] [address] [place] [address] Vianey Myeer FNP [address] [place] [address] Prior Authorization Social History Tobacco Use Types [...] Progress Notes * Susy Perry MA - 11/20/2020 9:18 AM CDT Patient informed tn * Susy Perry MA - 11/19/2020 12:56 PM CDT Ratna was approved x 6 months through [employer]. Auth expires 05/20/21 Tn LM 11/19/20 documented in this encounter Plan of Treatment Upcoming Encounters Date Type Department Care Team (Late st Contact Info) Description 09/08/2024 10:10 AM GAS TURBINE ASSEMBLER Office Visit [facility] Medical [facility] Family Medicine - [place] [address] [facility] [address] [place] [address] Samantha Sanders MD [address] [place] [address] documented as of this encounter Visit Diagnoses Not on filedocumented in this encounter Additional Health Concerns Assessment Noted Time PHQ-9 Depression Total Score: 7 01/18/20 19 12:34 PM CDT documented as of this encounter Care Teams Solutions Market Consultant Relationship Specialty Start Date End Date Vianey Meyer FNP [address] [place] [address] PCP - General Nurse Practitioner Family 06/21/1805/22/21 documented as of this encounter
--- OUTSIDE RECORDS SUMMARY | 2024-07-24 00:48 | XMS_ITS | Encounter Summary ---
Author Organization [facility] Address [address] [place] [address]. [place], [place] [address] [place], [place] [id number] Care Team Providers Care Landscape Architecture Professor Name Role Phone Vianey Meyer Primary Care Provider [phone] Reason for Visit * Reason Comments Other follow up on medicat ions Encounter Details Date Type Department Care Team (Late st Contact Info) Description 05/15/2021 10:40 AM CDT Telemedicine [facility] Medical Group Family & Internal Medicine [place] [address] [place] [address] Vianey Meyer FNP [facility] [place] [address] Other (follow up on medications) Social History Tobacco Use Types Packs/Day Years Used Date Smoking Tobacco: Every Day Cigarettes 0.3 20 Smokeless Tobacco: Never Tobacco Cessation:Ready to Q uit: Yes; Counseling Given: Yes Comments:provider to tour counselor Alcohol Use Standard Drinks/Week Comments Yes [...] AM CDT documented as of this encounter Patient Instructions * Patient Instructions* EMANI Crowder - 05/15/2021 10:40 AM CDT Continue with current dose of Vyvanse. Stop the paroxetine and start citalopram daily. Call for anyissues with these medications Start a b 12 supplement daily, in the am. Continue your vitamin d supplement, as discussed. Seek a mental health counselor as soon as you can. Seek immediate medical attention for any thoughts or concerns for suicide. Call for any questions or concerns Follow up in one month or sooner if needed. documented in this encounter Progress Notes * EMANI Crowder - 05/15/2021 10:40 AM CDTSummary: anxiety, depression, ADD, fatigue Office Progress Note Reason for Visit: Other (follow up on medications) I introduced and identified myself, received verbal consent from the patient to proceed with this video visit and made the patient aware that the same confidentiality and public information director practices apply. The patient joined the video visit from Home. I completed the virtual visit from Home. Thefollowing clinical staff helped with this visit MA: Susy Perry. Total Time Spent in Minutes: 25 History of Present Illness: Karlie presents via virtual visit for f/u of her chronic conditions/medications. Anxiety/depression She has no motivation and energy for the past few weeks. She has been sleeping a lot. She is not sure if the Paxil is working but she is not taking this daily as prescribed. She feels like the Vyvanse is too much for her, even though we discussed that this usually does not cause fatigue and that this could be due to her increased depression. She reports that citalopram has worked for her in the past. We also discussed trying venlafaxine but she would like to retry the Celexa first. She denies any SI or Hi presently. She did report to getting clonazepam from her yard stocker in March but did notfeel like this helped her at all. She did use all of this medication and reports that it helped with her tinnitus in her ears. Vitamin d taking this at least daily but has not started a b 12 supplement as of yet. She just had some recent blood work done this past January. ADD- Reports that she would like to go down on her Vyvanse dose but she is not due for a refill until the 26 of May. We discussed that this medication should not be causing her fatigue. She was concerned that this was counteracting with the Paxil. We discussed that this should not be happening andit is just her increased depression causing her this symptom. ROS: Review of Systems Constitutional: Positive for [...] and polydipsia. Does not bruise/bleed easily. Psychiatric/Behavioral: Positive for depression. Negative for hallucinations, memory loss, substance abuse and suicidal ideas. The patient is not nervous/anxious and does not have insomnia. Medications: Current Outpatient Medications on File Prior to Visit Medication Sig ??? azelastine 0.1 % nasal spray 1 spray in each nostril daily ??? Eszopiclone 3 MG Tab TAKE 1 TABLET BY MOUTH AT BEDTIME ??? lisdexamfetamine Dimesylate 70 MG capsule Take 1 capsule (70 mg total) by mouth every morning. ??? [...] Never Used ??? Tobacco comment: provider to tour counselor Substance and Sexual Activity ??? Alcohol [...] Gatherings with Friends and Family: ??? Attends Christianity Services: ??? Active Member of Clubs or [...] Eyes: Conjunctivae, EOM and lids are normal. Pulmonary/Chest: Effort normal. No accessory muscle usage. No respiratory distress. Musculoskeletal: Cervical back: Full passive range of motion without pain and normal range of motion. Neurological: She is alert and oriented to person, place, and time. Skin: Skin is intact. Psychiatric: Her speech is normal and behavior is normal. Judgment and thought content normal. Her mood appears anxious. Cognition and memory are normal. tearful There were no vitals filed for this visit. Diagnoses/Impression: 1. Attention deficit hyperactivity disorder (ADHD), combined type 2. Depression with anxiety citalopram (CELEXA) 10 MG tablet 3. Vitamin D deficiency 4. Fatigue due to depression Recommendations and Plan: 1. Attention deficit hyperactivity disorder (ADHD), combined type -she will continue vyvanse at current dose until her prescription is due for a refill and then we will decide if she would like to decrease her daily dose at that time. 2. Depression with anxiety - citalopram (CELEXA) 10 MG tablet; Take 1 tablet (10 mg total) by mouth daily. Dispense: 90 tablet; Refill: 1 - advised to stop the paroxetine and start the citalopram daily. She will call for any issues or concerns with this medication or her depression. - advised to seek immediate medical attention for any thoughts of suicide. - advised to seek mental health counseling and number given to her for one in [place]. - advised one month f/u, sooner if needed 3. Vitamin D deficiency - she was advised to continue daily supplement of this and start a b 12 supplement. - routine f/u advised, sooner if needed. 4. Fatigue due to depression - advised to stop the paroxetine and start the citalopram daily. She will call for any issues or concerns with this medication or her depression. - advised to seek immediate medical attention for any thoughts of suicide. - advised to seek mental health counseling and number given to her for one in [place]. - advised one month f/u, sooner if needed Orders Placed This Encounter ??? citalopram (CELEXA) 10 MG tablet Cannot display discharge medications since this is not an admission. PCP: EMANI KILGORE 05/15/2021 Cosigned by Rodger Miller MD at 05/29/2021 2:19 PM LOCOMOTIVE MECHANIC APPRENTICE MOTIVE MECHANIC APPRENTICE documented in this encounter Plan of Treatment Upcoming Encounters Date Type Department Care Team (Late st Contact Info) Description 09/08/2024 10:10 AM LOCOMOTIVE MECHANIC APPRENTICE Office Visit [facility] Medical Group Family Medicine [facility] [address] [facility] [address] [place] [address] Samantha Sanders MD [address] [place] [address] documented as of this encounter Visit Diagnoses Diagnosis Attention deficit hyperactivity disorder (ADHD), combined type- Primary Depression with anxiety Dysthymic disorder Vitamin D deficiency Unspecified vitamin D deficiency Fatigue due to depression documented in this encounter Additional Health Concerns Assessment Noted Time PHQ-9 Depression Total Score: 2 12/19/19 21 4:22 PM CDT documented as of this encounter Care Teams Landscape Architecture Professor Relationship Specialty Start Date End Date Vianey Meyer FNP [address] [place] [address] PCP - General Nurse Practitioner Family 06/21/1805/22/21 documented as of this encounter
--- OUTSIDE RECORDS SUMMARY | 2024-07-24 00:48 | XMS_ITS | Encounter Summary ---
Author Organization [facility] Address [address] [place] [address]. [place] [address] Care Team Providers Care Soil Science Technical Officer Name Role Phone Vianey Meyer Primary Care Provider [phone] Reason for Visit * Reason Onset Date Comments Sore Throat 12/06/2020 Encounter Details Date Type Department Care Team (Late st Contact Info) Description 12/06/2020 Telephone [facility] Medical Group Family & Internal Medicine [place] [place] [address] Vianey Meyer FNP [address] [place] [address] Sore Throat Social History Tobacco Use Types Packs/Day Years [...] Progress Notes * Susy Perry MA - 12/06/2020 4:26 PM CDT rx sent. Patient informed tn * EMANI Crowder - 12/06/2020 3:29 PM CDT Amoxicillin 875 mg bid x 10d * Susy Perry MA - 12/06/2020 3:18 PM CDT C/o sore throat,drainage and yellow mucous. Was exposed to positive strep by daughters friend. Requesting antibiotic [facility] [place] documented in this encounter Plan of Treatment Upcoming Encounters Date Type Department Care Team (Late st Contact Info) Description 09/08/2024 10:10 AM TECHNOLOGY ARCHITECT Office Visit [facility] Medical Group Family Medicine - [place] [address] [facility] [address] [place] [address] Samantha Sanders MD [address] [place] [address] documented as of this encounter Visit Diagnoses Diagnosis Sore throat- Primary Acute pharyngitis documented in this encounter Additional Health Concerns Assessment Noted Time PHQ-9 Depression Total Score: 7 01/18/20 19 12:34 PM CDT documented as of this encounter Care Teams Soil Science Technical Officer Relationship Specialty Start Date End Date Vianey Meyer FNP [address] [place] [address] PCP - General Nurse Practitioner Family 06/21/1805/22/21 documented as of this encounter
--- OUTSIDE RECORDS SUMMARY | 2024-07-24 00:48 | XMS_ITS | Encounter Summary ---
Author Organization [facility] Address [address] [place] [address]. [place], [place] [address] [place] [address] Care Team Providers Care Business Services Specialist Sales Name Role Phone Vianey Meyer EMANI Primary Care Provider [phone] Encounter Details Date Type Department Care Team (Latest Contact Info) Description 03/05/2020 Travel Social History Tobacco Use Types Packs/Day [...] ( Contact Info) Description 09/08/2024 10:10 AM PHYSICAL THERAPY TEACHER Office Visit [facility] Medical Group Family Medicine - [place] [address] [place] [phone] Samantha Sanders MD [address] [place] [address] documented as of this encounter Visit Diagnoses Not on filedocumented in this encounter Additional Health Concerns Assessment Noted Time PHQ-9 Depression Total Score: 7 01/18/20 19 12:34 PM CDT documented as of this encounter Care Teams Business Services Specialist Sales Relationship Specialty Start Date End Date Vianey Myeer FNP [address] [place] [address] PCP - General Nurse Practitioner Family 06/21/1805/22/21 documented as of this encounter
--- OUTSIDE RECORDS SUMMARY | 2024-07-24 00:48 | XMS_ITS | Encounter Summary ---
Author Organization [facility] Address [address] [place] [address]. [place] [phone] [place], [place] [phone] Care Team Providers Care Grappler Name Role Phone Vianey Meyer Primary Care Provider [phone] Reason for Visit * Reason Onset Date Comments COVID-19 06/06/2020 Encounter Details Date Type Department Care Team (Late st Contact Info) Description 06/06/2020 Telephone [facility] Medical Group Family & Internal Medicine [facility] [address] [place] [address] Vianey Meyer FNP [address] [place] [address] COVID-19 Social History Tobacco Use [...] Progress Notes * Susy Perry MA - 06/06/2020 3:38 PM CST Patient contacted, order done and faxed. Informed to quarantine. tn ER/WAITRESS HEAD * CHACORTA Cobb - 06/06/2020 3:22 PM CST Ok to test. QUARANTINE AT HOME UNTIL RESULTS RETURNED!!! ER/WAITRESS HEAD * Mila Liu - 06/06/2020 1:37 PM CST Patient has headaches, dry cough, slight sore throat, lack of smell and nose feels like its really dry. Asking for COVID testing. Okay for testing? Shweta in [place] she was told would do rapid testing. ER/WAITRESS HEAD documented in this encounter Plan of Treatment Upcoming Encounters Date Type Department Care Team (Late st Contact Info) Description 09/08/2024 10:10 AM WAITER/WAITRESS HEAD Office Visit [facility] Medical Group Family Medicine - [place] [address] [facility] [address] [place] [address] Samantha Sanders MD [address] [place] [address] documented as of this encounter Visit Diagnoses Diagnosis Sore throat- Primary Acute pharyngitis Cough Absent sense of smell Disturbances of sensation of smell and taste documented in this encounter Additional Health Concerns Infection Onset Date Last Indicated Resolved Time COVID-19 Rule Out 06/06/2020 06/06/2020 08/05/2020 12:33 AM WAITER/WAITRESS HEAD Assessment Noted Time PHQ-9 Depression Total Score: 7 01/18/20 19 12:34 PM CDT documented as of this encounter Care Teams Grappler Relationship Specialty Start Date End Date Vianey Meyer FNP [address] [place] [address] PCP - General Nurse Practitioner Family 06/21/1805/22/21 documented as of this encounter
--- OUTSIDE RECORDS SUMMARY | 2024-07-24 00:48 | XMS_ITS | Encounter Summary ---
Author Organization [facility] Address [address] [place] [address]. [place], [place] [id number] [place] [address] Care Team Providers Care Crushing Mill Operator Name Role Phone Vianey Meyer EMANI Primary Care Provider [phone] Encounter Details Date Type Department Care Team (Latest Contact Info) Description 02/15/2021 Travel Social History Tobacco Use Types Packs/Day Years Used Date Smoking Tobacco: Every Day Cigarettes 0.3 20 Smokeless Tobacco: Never Comments:provider to correctional counselor/case manager Alcohol Use Standard Drinks/Week Comments Yes 0 [...] ( Contact Info) Description 09/08/2024 10:10 AM REGISTERED ART THERAPIST Office Visit [facility] Family Medicine - [place] [address] [facility] [address] [place] [address] Samantha Sanders MD [address] [place] [address] documented as of this encounter Visit Diagnoses Not on filedocumented in this encounter Additional Health Concerns Assessment Noted Time PHQ-9 Depression Total Score: 2 12/19/19 21 4:22 PM CDT documented as of this encounter Care Teams Crushing Mill Operator Relationship Specialty Start Date End Date Vianey Meyer FNP [address] [place] [address] PCP - General Nurse Practitioner Family 06/21/1805/22/21 documented as of this encounter
--- OUTSIDE RECORDS SUMMARY | 2024-07-24 00:49 | XMS_ITS | Encounter Summary ---
Author Organization [facility] Address [address] [place] [address]. [place], [place] [address] [place], [place] [id number] Care Team Providers Care Technical Manager Chemical Plant Name Role Phone Vianey Meyer Primary Care Provider [phone] Reason for Visit * Reason Onset Date Comments Letter 10/26/2019 Encounter Details Date Type Department Care Team (Late st Contact Info) Description 10/26/2019 Telephone [facility] Medical [facility] Family & Internal Medicine [place] [id number] [place] [address] Vianey Meyer FNP [facility]1 [place], [place] [phone] Letter Social History Tobacco Use Types Packs/Day Years Used Date Smoking Tobacco: Every Day Smokeless Tobacco: Never Alcohol Use Standard Drinks/Week [...] have Coronavirus / COVID-19? No / Unsure 10/17/2019 11:05 AM CDT documented as of this encounter Progress Notes * Susy Perry MA - 10/28/2019 11:30 AM CDT Patient informed, zpak sent tn * EMANI Crowder - 10/28/2019 11:09 AM CDT Z flip * Susy Perry MA - 10/28/2019 10:14 AM CDT Patient informed that letter is done. Requested to be faxed to her work at [phone]. Patient is now requesting a zpak be sent and anything else that you think could help with her coughand congestion. Patient has tried zyrtec,ibuprofin and tylenol. * EMANI Crowder - 10/26/2019 2:02 PM CDT Okay to write * Sneha Batista - 10/26/2019 1:28 PM CDT Patient came in asking for a letter to excuse her from work. She stated that she works in a [employer] and she feels like it would be better to general worker instead of going in. She would like to draft roller picker this letter. documented in this encounter Plan of Treatment Upcoming Encounters Date Type Department Care Team (Late st Contact Info) Description 09/08/2024 10:10 AM BICYCLE TAXI DRIVER Office Visit [facility] Family Medicine - [place] [address] [place], [place] [phone] Samantha Sanders MD [address] [place], [place] [address] documented as of this encounter Visit Diagnoses Diagnosis URI (upper respiratory infection)- Primary Acute upper respiratory infections of unspecified site documented in this encounter Additional Health Concerns Assessment Noted Time PHQ-9 Depression Total Score: 7 01/18/20 19 12:34 PM CDT documented as of this encounter Care Teams Technical Manager Chemical Plant Relationship Specialty Start Date End Date Vianey Meyer FNP [address] [place] [address] PCP - General Nurse Practitioner Family 06/21/1805/22/21 documented as of this encounter
--- OUTSIDE RECORDS SUMMARY | 2024-07-24 00:49 | XMS_ITS | Encounter Summary ---
Author Organization [facility] Address [address] [place] [address]. [place], [place] [address] [place], [place] [id number] Care Team Providers Care First Crusher Name Role Phone Vianey Meyer Primary Care Provider [phone] Reason for Visit * Reason Onset Date Comments Work Excuse 05/20/2019 Encounter Details Date Type Department Care Team (Late st Contact Info) Description 05/20/2019 Telephone [facility] Medical [facility] Family & Internal Medicine [address] [address] Vianey Meyer FNP [facility] [place] [address] Work Excuse Social History Tobacco Use Types Packs/Day Years Used Date Smoking Tobacco: Every Day Smokeless Tobacco: Never Alcohol Use Standard Drinks/Week Comments Yes 0 (1 standard drink = 0.6 oz pur e alcohol) AUDIT-C Answer Date Recorded Frequency of Alcohol Consumption 2-4 times a thu08/16/2018 Average Number of Drinks Not on file 019 Frequency of Binge Drinking Not on file 07/21 Comments No Sex and Gender Information Value Date Recorded Sex Assigned at Not on file Legal Sex Female 4:47 PM CDT Gender Identity Not on file Sexual Orientation Not on file documented as of this encounter Progress Notes * Susy Perry MA - 05/20/2019 7:58 AM CDT 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 desk 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 set assembler for flower buncher or picker 05/20/19 tn documented in this encounter Plan of Treatment Upcoming Encounters Date Type Department Care Team (Late st Contact Info) Description 09/08/2024 10:10 AM SLOT FLOOR SUPERVISOR Office Visit [facility] Family Medicine - [place] [address] [place] [address] Samantha Sanders MD [address] [place], [place] [phone] documented as of this encounter Visit Diagnoses Not on filedocumented in this encounter Additional Health Concerns Assessment Noted Time PHQ-9 Depression Total Score: 7 01/18/20 19 12:34 PM CDT documented as of this encounter Care Teams First Crusher Relationship Specialty Start Date End Date Vianey Meyer FNP [facility] [place] [address] PCP - General Nurse Practitioner Family 06/21/1805/22/21 documented as of this encounter
--- OUTSIDE RECORDS SUMMARY | 2024-07-24 00:49 | XMS_ITS | Encounter Summary ---
Author Organization [facility] Address [address] [place] [address]. [place], [place] [address] [place], [place] [id number] Care Team Providers Care Rotary Pump Operator Name Role Phone Vianey Meyer Primary Care Provider [phone] Encounter Details Date Type Department Care Team (Late Contact Info) Description 09/26/2019 Orders Only [facility] Medical Group Family & Internal Medicine [facility] [address] [place] [address] Vianey Meyer FNP [facility]1 [place] [address] Social History Tobacco Use Types Packs/Day Years [...] encounter Progress Notes * EMANI Crowder - 09/26/2019 10:28 AM CDT Script printed documented in this encounter Plan of Treatment Upcoming Encounters Date Type Department Care Team (Late Contact Info) Description 09/08/2024 10:10 AM BEET FLUMER Office Visit [facility] Medical [facility] Family Medicine - [place] [address] [facility] [address] [place] [address] Samantha Sanders MD [address] [place] [address] documented as of this encounter Visit Diagnoses Diagnosis Attention deficit disorder, unspecified hyperactivity presence documented in this encounter Additional Health Concerns Assessment Noted Time PHQ-9 Depression Total Score: 7 01/18/20 19 12:34 PM CDT documented as of this encounter Care Teams Rotary Pump Operator Relationship Specialty Start Date End Date Vianey Meyer FNP [facility] [place] [address] PCP - General Nurse Practitioner Family 06/21/1805/22/21 documented as of this encounter
--- OUTSIDE RECORDS SUMMARY | 2024-07-24 00:49 | XMS_ITS | Encounter Summary ---
Author Organization [facility] Address [address] [place] [address]. [place], [place] [address] [place] [address] Care Team Providers Care Decorative Greens Cutter Name Role Phone Vianey Meyer EMANI Primary Care Provider [phone] Encounter Details Date Type Department Care Team (Latest Contact Info) Description 10/17/2019 Travel Social History Tobacco Use Types Packs/Day [...] st Contact Info) Description 09/08/2024 10:10 AM FORESTRY CONTRACTOR Office Visit [facility] Medical Group Family Medicine - [place] [address] [place] [address] Samantha Sanders MD [address] [place] [address] documented as of this encounter Visit Diagnoses Not on filedocumented in this encounter Additional Health Concerns Assessment Noted Time PHQ-9 Depression Total Score: 7 01/18/20 19 12:34 PM CDT documented as of this encounter Care Teams Decorative Greens Cutter Relationship Specialty Start Date End Date Vianey Meyer FNP [address] [place] [address] PCP - General Nurse Practitioner Family 06/21/1805/22/21 documented as of this encounter
--- OUTSIDE RECORDS SUMMARY | 2024-07-24 00:49 | XMS_ITS | Encounter Summary ---
Author Organization [facility] Address [address] [place] [address]. [place], [place] [address] [place], [place] [phone] Care Team Providers Care Sander Wooden Pencils Name Role Phone Vianey Meyer Primary Care Provider [phone] Encounter Details Date Type Department Care Team (Late Contact Info) Description 08/29/2019 Orders Only [facility] Medical Group Family & Internal Medicine [facility] [address] [place] [address] Vianey Meyer FNP [address] [place] [address] Social History Tobacco Use Types Packs/Day Years [...] encounter Progress Notes * EMANI Crowder - 08/29/2019 5:46 PM CST Medication refilled. AND GAUGE INSPECTOR documented in this encounter Plan of Treatment Upcoming Encounters Date Type Department Care Team (Late Contact Info) Description 09/08/2024 10:10 AM TOOL AND GAUGE INSPECTOR Office Visit [facility] Medical Group Family Medicine - [place] [address] [facility] [address] [place] [address] Samantha Sanders MD [address] [place] [address] documented as of this encounter Visit Diagnoses Diagnosis Attention deficit disorder, unspecified hyperactivity presence- Primary documented in this encounter Additional Health Concerns Assessment Noted Time PHQ-9 Depression Total Score: 7 01/18/20 19 12:34 PM CDT documented as of this encounter Care Teams Sander Wooden Pencils Relationship Specialty Start Date End Date Vianey Meyer FNP [address] [place] [address] PCP - General Nurse Practitioner Family 06/21/1805/22/21 documented as of this encounter
--- OUTSIDE RECORDS SUMMARY | 2024-07-24 00:49 | XMS_ITS | Encounter Summary ---
Author Organization [facility] Address [address] [place] [address]. [place], [place] [address] [place] [address] Care Team Providers Care Diabetes Specialist Name Role Phone Vianey Meyer EMANI Primary Care Provider [phone] Encounter Details Date Type Department Care Team (Latest Contact Info) Description 10/20/2019 Travel Social History Tobacco Use Types Packs/Day [...] st Contact Info) Description 09/08/2024 10:10 AM GRANULIZING MACHINE OPERATOR Office Visit [facility] Family Medicine - [place] [address] [place] [address] Samantha Sanders MD [address] [place] [address] documented as of this encounter Visit Diagnoses Not on filedocumented in this encounter Additional Health Concerns Assessment Noted Time PHQ-9 Depression Total Score: 7 01/18/20 19 12:34 PM CDT documented as of this encounter Care Teams Diabetes Specialist Relationship Specialty Start Date End Date Vianey Meyer FNP [address] [place] [address] PCP - General Nurse Practitioner Family 06/21/1805/22/21 documented as of this encounter
--- OUTSIDE RECORDS SUMMARY | 2024-07-24 00:49 | XMS_ITS | Encounter Summary ---
Author Organization [facility] Address [address] [place] [address]. [place], [place] [phone] [place] [address] Care Team Providers Care Clean Rice Broker Name Role Phone Vianey Meyer EMANI Primary Care Provider [phone] Encounter Details Date Type Department Care Team (Latest Contact Info) Description 07/21/2019 Scan HEALTH INFO SRVCS Scanned, Documents Social [...] (Late Contact Info) Description 09/08/2024 10:10 AM BOOKKEEPING CLERK Office Visit [facility] Medical Group Family Medicine - [place] [address] [place] [phone] Samantha Sanders MD [address] [place], [place] [phone] documented as of this encounter Visit Diagnoses Not on filedocumented in this encounter Additional Health Concerns Assessment Noted Time PHQ-9 Depression Total Score: 7 01/18/20 19 12:34 PM CDT documented as of this encounter Care Teams Clean Rice Broker Relationship Specialty Start Date End Date Vianey Meyer FNP [address] [place] [address] PCP - General Nurse Practitioner Family 06/21/1805/22/21 documented as of this encounter
--- OUTSIDE RECORDS SUMMARY | 2024-07-24 00:49 | XMS_ITS | Encounter Summary ---
Author Organization [facility] Address [address] [place] [address]. [place] [phone] [place], [place] [phone] Care Team Providers Care Commercial Lines Account Manager Name Role Phone Vianey Meyer Primary Care Provider [phone] Reason for Visit * Reason Onset Date Comments Appointment Request 10/20/2019 headache, co ugh, shortness of breath Encounter Details Date Type Department Care Team (Late st Contact Info) Description 10/20/2019 Telephone [facility] Medical Group Family & Internal Medicine [place] [address] [place] [address] Vianey Meyer FNP [facility]1 [place] [address] Appointment Request (headache, cough, shortness of breath) Social History Tobacco Use Types Packs/Day Years [...] Progress Notes * Susy Perry MA - 10/20/2019 4:03 PM CDT LM at both #'s listed 10/20/19 left a detailed message on the [phone] because it is a confidential # * EMANI Crowder - 10/20/2019 4:00 PM CDT To the respiratory hub for sure. * Candice Yarbrough LPN - 10/20/2019 3:04 PM CDT Patient called with symptoms of swollen face, headache, runny nose, chills, cough, sore throat, slight shortness of breath. No fever and [place] been out of the [place]. 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 I advised her to go be seen at the respiratory hub in [place] to eliminate any other issues first. Being that she hasn't ran a fever she may not be a candidate for COVID testing. Any further questions or concerns please call. documented in this encounter Plan of Treatment Upcoming Encounters Date Type Department Care Team (Late st Contact Info) Description 09/08/2024 10:10 AM BLACK BELT Office Visit [facility] Family Medicine - [place] [address] [place], [place] [phone] Samantha Sanders MD [address] [place], [place] [phone] documented as of this encounter Visit Diagnoses Not on filedocumented in this encounter Additional Health Concerns Assessment Noted Time PHQ-9 Depression Total Score: 7 01/18/20 19 12:34 PM CDT documented as of this encounter Care Teams Commercial Lines Account Manager Relationship Specialty Start Date End Date Vianey Meyer FNP [address] [place] [address] PCP - General Nurse Practitioner Family 06/21/1805/22/21 documented as of this encounter
--- OUTSIDE RECORDS SUMMARY | 2024-07-24 00:49 | XMS_ITS | Encounter Summary ---
Author Organization [facility] Address [address] [place] [address]. [place], [place] [address] [place] [address] Care Team Providers Care Front Edger Name Role Phone Vianey Meyer EMANI Primary Care Provider [phone] Reason for Visit * Reason Comments CT (SCAN) Encounter Details Date Type Department Care Team (Latest Contact Info) Description 07/21/2019 Scan HEALTH INFO SRVCS Scanned, Documents CT (SCAN) Social History Tobacco Use Types Packs/Day [...] Contact Info) Description 09/08/2024 10:10 AM DIRECTOR HUMAN SERVICES Office Visit [facility] Medical Group Family Medicine - [place] [address] [place] [phone] Samantha Sanders MD [address] [place], [place] [phone] documented as of this encounter Procedures Procedure Name Priority Date/Time Associated Diagnosis Comments CT GENERIC Routine 08/16/2019 8:47 AM DIRECTOR HUMAN SERVICES documented in this encounter Results * CT (08/16/2019 8:47 AM DIRECTOR HUMAN SERVICES) Anatomical Region Laterality Modality Other us Documents Scanned SCANNING Edited Result - Final documented in this encounter Visit Diagnoses Not on filedocumented in this encounter Additional Health Concerns Assessment Noted Time PHQ-9 Depression Total Score: 7 01/18/20 19 12:34 PM CDT documented as of this encounter Care Teams Front Edger Relationship Specialty Start Date End Date Vianey Meyer FNP [address] [place] [address] PCP - General Nurse Practitioner Family 06/21/1805/22/21 documented as of this encounter
--- OUTSIDE RECORDS SUMMARY | 2024-07-24 00:49 | XMS_ITS | Encounter Summary ---
Author Organization [facility] Address [address] [place] [address]. [place] [address] Care Team Providers Care Ultrasound Applications Specialist Name Role Phone Vianey Meyer EMANI Primary Care Provider [phone] Reason for Visit * Reason Comments Lump on right shoulder bl kamar x 1.5 week that has burst Encounter Details Date Type Department Care Team (Late st Contact Info) Description 09/13/2019 2:40 PM FILLING STATION LABORER Office Visit [facility] Medical Group Family & Internal Medicine [facility] [address] [place] [address] Osbaldo Dobbisn, [address] [place] [address] Lump (on right shoulder blade x 1.5 week that has burst ) Social History Tobacco Use Types Packs/Day [...] Sign Reading Time Taken Comments Blood Pressure 104/60 09/13/2019 2:52 PM FILLING STATION LABORER Pulse 84 09/13/2019 2:52 PM FILLING STATION LABORER Temperature 36.9 ??C (98.4 ??F) 09/13/2019 2:52 PM CS T Respiratory Rate 16 09/13/2019 2:52 PM FILLING STATION LABORER Oxygen Saturation 98% 09/13/2019 2:52 PM FILLING STATION LABORER Inhaled Oxygen Concentration - - Weight 61.9 kg (136 lb 7 oz) 09/13/2019 2:52 PM FILLING STATION LABORER Height 152.4 cm (5') 09/13/2019 2:52 PM FILLING STATION LABORER Body Mass Index 26.65 09/13/2019 2:52 PM FILLING STATION LABORER documented in this encounter Progress Notes * Osbaldo Wynne Shilpi, DO - 09/13/2019 2:40 PM CST Images from the original note were not included. GENERAL OFFICE VISIT Encounter Date: 09/13/2019 Chief Complaint: 44-year-old female presents for Lump (on right shoulder blade x 1.5 week that has burst ) HPI: Pt presents for possible infection on right shoulder blade. Pt had a large, erythematous lesion on her right shoulder blade. She states she's always had something there. Pt thinks it may have been infected. It spontaneously opened on its own. She is concerned for MRSA. She had some old amoxicillin 500 mg that she started about 3 days ago, maybe once a day. Pt's arm felt warm this morning. No noted fevers and is afebrile today. Review of Systems Constitutional: Negative for fever. Skin: See HPI Patient Active Problem List Diagnosis ??? ADD (attention deficit disorder) ??? Depression with anxiety ??? Generalized anxiety disorder ??? Vitamin D deficiency ??? Ulcerative colitis (CMS/HCC) ??? Shift work sleep disorder ??? Insomnia ??? Fatigue ??? Acne ??? Allergic rhinitis Past Medical History: Diagnosis Date ??? Bowel obstruction (CMS/HCC) ??? Ulcerative (chronic) enterocolitis, other complication (CMS/HCC) Past Surgical History: Procedure Laterality Date ??? APPENDECTOMY ??? APPENDECTOMY ??? BREAST LUMPECTOMY Left ??? HERNIA REPAIR ??? HYSTERECTOMY Family History Problem Relation Name Age of Onset ??? Heart Mother ??? Heart Father ??? Heart Paternal Grandfather ??? Aneurysm Paternal Grandfather ??? Cancer Paternal Grandfather colon Social History Socioeconomic History ??? Marital status: [...] ??? Smoking status: Current Every Day Smoker ??? Smokeless tobacco: Never Used Substance and [...] file Gets together: Not on file Attends restorationist service: Not on file Active member of [...] Social History Narrative ??? Not on file There is no immunization history on file for this patient. Current Outpatient Medications Medication Sig Dispense Refill ??? azelastine 0.1 % nasal spray 1 spray by Nasal route 2 (two) times daily. Use in each nostril asdirected 30 mL 0 ??? bacitracin 500 UNIT/GM ointment Apply topically 2 (two) times daily for 10 days. 14 g 0 ??? buPROPion 75 MG tablet Take 1 tablet (75 mg total) by mouth 2 (two) times daily. 60 tablet 2 ??? busPIRone 10 MG tablet Take 1 tablet (10 mg total) by mouth 2 (two) times daily. (Patient taking differently: Take 10 mg by mouth 2 (two) times daily as needed. ) 60 tablet 11 ??? dicyclomine 10 MG capsule Take 10 mg by mouth as needed. ??? Eszopiclone (LUNESTA) 3 MG Tab Take 3 mg by mouth nightly at bedtime. Take immediately before bedtime 30 tablet 2 ??? lisdexamfetamine 30 MG capsule Take 1 capsule (30 mg total) by mouth every morning. 30 capsule 0 ??? sulfamethoxazole-trimethoprim (BACTRIM DS) 800-160 MG tablet Take 1 tablet by mouth 2 (two) times daily for 10 days. 20 tablet 0 ??? trazodone 50 MG tablet No current facility-administered medications for this visit. Current Outpatient Medications on File Prior to Visit Medication Sig ??? azelastine 0.1 % nasal spray 1 spray by Nasal route 2 (two) times daily. Use in each nostril asdirected ??? buPROPion 75 MG tablet Take 1 tablet (75 mg total) by mouth 2 (two) times daily. ??? busPIRone 10 MG tablet Take 1 tablet (10 mg total) by mouth 2 (two) times daily. (Patient taking differently: Take 10 mg by mouth 2 (two) times daily as needed. ) ??? dicyclomine 10 MG capsule Take 10 mg by mouth as needed. ??? Eszopiclone (LUNESTA) 3 MG Tab Take 3 mg by mouth nightly at bedtime. Take immediately before bedtime ??? lisdexamfetamine 30 MG capsule Take 1 capsule (30 mg total) by mouth every morning. ??? trazodone 50 MG tablet No current facility-administered medications on file prior to visit. No Known Allergies Objective: Filed Vitals: 09/13/19 1452 BP: 104/60 Pulse: 84 Resp: 16 Temp: 98.4 ??F (36.9 ??C) SpO2: 98% Weight: 61.9 kg (136 lb 7 oz) Height: 5' (1.524 m) Physical Exam Constitutional: She is well-developed, well-nourished, and in no distress. HENT: Head: Normocephalic and atraumatic. Right Ear: External ear normal. Left Ear: External ear normal. Eyes: Conjunctivae are normal. Cardiovascular: Normal rate, regular rhythm and normal heart sounds. Exam reveals no gallop and no friction rub. No murmur heard. Pulmonary/Chest: Effort normal and breath sounds normal. No respiratory distress. She has no wheezes. She has no rales. Skin: A spontaneously likely abscess is noted on posterior right shoulder blade, no significant fluctuance noted, notable erythema in area of concern Nursing note and vitals reviewed. Assessment & Plan: Karlie was seen today for lump. Diagnoses and all orders for this visit: Abscess - sulfamethoxazole-trimethoprim (BACTRIM DS) 800-160 MG tablet; Take 1 tablet by mouth 2 (two) times daily for 10 days. - bacitracin 500 UNIT/GM ointment; Apply topically 2 (two) times daily for 10 days. Discussion/Summary: Cleaned area and used sterile saline to wash wound. Will give medications as per above. Discussed wound care. Will have pt f/u as needed for this. Pt v/u. Osbaldo Dobbins DO ING STATION LABORER documented in this encounter Plan of Treatment Upcoming Encounters Date Type Department Care Team (Late st Contact Info) Description 09/08/2024 10:10 AM FILLING STATION LABORER Office Visit [facility] Medical Group Family Medicine [facility] [address] [facility] [address] [place] [address] Samantha Sanders MD [address] [facility] [address] [place] [address] documented as of this encounter Visit Diagnoses Diagnosis Abscess- Primary Cellulitis and abscess of unspecified site documented in this encounter Additional Health Concerns Assessment Noted Time PHQ-9 Depression Total Score: 7 01/18/20 19 12:34 PM CDT documented as of this encounter Care Teams Ultrasound Applications Specialist Relationship Specialty Start Date End Date Vianey Meyer FNP [address] [place] [address] PCP - General Nurse Practitioner Family 06/21/1805/22/21 documented as of this encounter
--- OUTSIDE RECORDS SUMMARY | 2024-07-24 00:49 | XMS_ITS | Encounter Summary ---
Author Organization [facility] Address [address] [place] [address]. [place], [place] [address] [place], [place] [id number] Care Team Providers Care Credit Union Field Examiner Name Role Phone Vianey Meyer Primary Care Provider [phone] Encounter Details Date Type Department Care Team (Late Contact Info) Description 10/17/2019 Orders Only [facility] Medical Group Family & Internal Medicine [place] [address] [place] [address] Vianey Meyer FNP [facility] [place] [address] Social History Tobacco Use Types Packs/Day Years [...] st Contact Info) Description 09/08/2024 10:10 AM CHRISTMAS TREE CONTRACTOR Office Visit [facility] Medical Group Family Medicine - [place] [address] [place] [address] Samantha Sanders MD [address] [place] [address] documented as of this encounter Visit Diagnoses Diagnosis Attention deficit disorder, unspecified hyperactivity presence- Primary documented in this encounter Additional Health Concerns Assessment Noted Time PHQ-9 Depression Total Score: 7 01/18/20 19 12:34 PM CDT documented as of this encounter Care Teams Credit Union Field Examiner Relationship Specialty Start Date End Date Vianey Meyer FNP [address] [place] [address] PCP - General Nurse Practitioner Family 06/21/1805/22/21 documented as of this encounter
--- OUTSIDE RECORDS SUMMARY | 2024-07-24 00:49 | XMS_ITS | Encounter Summary ---
Author Organization [facility] Address [address] [place] [address]. [place], [place] [address] [place], [place] [address] Care Team Providers Care Lead Electrical Controls Engineer Name Role Phone Vianey Meyer Primary Care Provider [phone] Encounter Details Date Type Department Care Team (Late st Contact Info) Description 07/06/2019 Orders Only [facility] Medical Group Family & Internal Medicine [facility] [address] [place] [address] Vianey Meyer FNP [facility] [place] [address] Social History Tobacco Use Types Packs/Day Years [...] encounter Progress Notes * EMANI Crowder - 07/06/2019 4:28 PM CST Medication sent to [facility] SIVE SPRAYER documented in this encounter Plan of Treatment Upcoming Encounters Date Type Department Care Team (Late st Contact Info) Description 09/08/2024 10:10 AM ADHESIVE SPRAYER Office Visit [facility] Medical Group Family Medicine - [place] [address] [facility] [address] [place] [address] Samantha Sanders MD [address] [place] [address] documented as of this encounter Visit Diagnoses Diagnosis Attention deficit disorder, unspecified hyperactivity presence documented in this encounter Additional Health Concerns Assessment Noted Time PHQ-9 Depression Total Score: 7 01/18/20 19 12:34 PM CDT documented as of this encounter Care Teams Lead Electrical Controls Engineer Relationship Specialty Start Date End Date Vianey Meyer FNP [facility] [place] [address] PCP - General Nurse Practitioner Family 06/21/1805/22/21 documented as of this encounter
--- OUTSIDE RECORDS SUMMARY | 2024-07-24 00:49 | XMS_ITS | Encounter Summary ---
Author Organization [facility] Address [address] [place] [address]. [place], [place] [address] [place] [address] Care Team Providers Care Certified Corporate Travel Executive Name Role Phone Vianey Meyer EMANI Primary Care Provider [phone] Encounter Details Date Type Department Care Team (Latest Contact Info) Description 10/20/2019 5:26 PM CDT - 10/20/2019 11:59 PM CDT Hospital Encounter [facility] [place] [address] Sánchez Zaragoza MD [address] [facility] [address] [place], [place] [id number] Discharge Disposition: Home or Self Care (Routine [...] AM CDT documented as of this encounter Medications at Time of Discharge amphetamine-dextro amphetamine (ADDERALL) 10 MG tabletIndications: Attention deficit disorder, unspecified hyperactivity presence Take 1 tablet (10 mg total) by mouth 3 (three) times daily. 90 tablet 10/17/2019 0 azelastine 0.1 % nasal sprayIndications:A cute non-recurrent maxillary sinusitis 2 sprays by Nasal route 2 (two) times daily. Use in each nostril as directed 30 mL 10/20/2019 1 buPROPion 75 MG tabletIndications: Generalized anxiety disorder Take 1 tablet (75 mg total) by mouth 2 (two) times daily. 60 tablet 2 08/16/2018 0 buPROPion XL 150 MG 24 hr tablet Take 150 mg by mouth daily. 09/26/2019 0 busPIRone 10 MG tabletIndications: Anxiety Take 1 tablet (10 mg total) by mouth 2 (two) times daily. 60 tablet 11 01/17/2019 1 dicyclomine 10 MG capsule Take 10 mg by mouth as needed. 09/01/2018 1 Eszopiclone (LUNESTA) 3 MG TabIndications:Ins omnia due to other mental disorder Take 3 mg by mouth nightly at bedtime. Take immediately before bedtime 30 tablet 2 03/30/2019 0 trazodone 50 MG tablet 09/13/2018 0 documented as of this encounter Plan of Treatment Upcoming Encounters Date Type Department Care Team (Late st Contact Info) Description 09/08/2024 10:10 AM LEAD JAVA DEVELOPER ARCHITECT Office Visit [facility] Medical Group Family Medicine - [place] [address] [place] [address] Samantha Sanders MD [address] [place] [address] documented as of this encounter Procedures Procedure Name Priority Date/Time Associated Diagnosis Comments STREP A, DNA Routine 10/20/2019 3:44 PM CDT Flu-like symptoms documented in this encounter Results * STREP A, DNA ASSAY (for Confirmation only) (10/20/2019 3:44 PM CDT) STREP A MOLECULAR NEGATIVE NEGATIVE 020 8:52 PM CDT [facility] Comment:SPECIMEN NEGATIVE FO R GROUP A STREPTOCOCCUS BY DNA AMPLIFICATION STRUCTURE OF ANTERIOR PORTION OF NECK / Unknown 10/20/2019 3:44 PM CDT us Sánchez Zaragoza MD MICROBIOLOGY - GENERAL ORDERA BLES Final Result [facility] [address] [place] [address], documented in this encounter Visit Diagnoses Diagnosis Flu-like symptoms Influenza with other respiratory manifestations documented in this encounter Additional Health Concerns Assessment Noted Time PHQ-9 Depression Total Score: 7 01/18/20 19 12:34 PM CDT documented as of this encounter Care Teams Certified Corporate Travel Executive Relationship Specialty Start Date End Date Vianey Meyer FNP [address] [place] [address] PCP - General Nurse Practitioner Family 06/21/1805/22/21 documented as of this encounter
--- OUTSIDE RECORDS SUMMARY | 2024-07-24 00:49 | XMS_ITS | Encounter Summary ---
Author Organization [facility] Address [address] [place] [address]. [place], [place] [phone] [place] [address] Care Team Providers Care Copy Chaser Name Role Phone Vianey Meyer EMANI Primary Care Provider [phone] Encounter Details Date Type Department Care Team (Latest Contact Info) Description 08/02/2019 Scan HEALTH INFO SRVCS Scanned, Documents Social [...] (Late Contact Info) Description 09/08/2024 10:10 AM BIOMEDICAL INSTRUMENT TECHNICIAN Office Visit [facility] Medical Group Family Medicine - [place] [address] [place] [phone] Samantha Sanders MD [address] [place], [place] [phone] documented as of this encounter Visit Diagnoses Not on filedocumented in this encounter Additional Health Concerns Assessment Noted Time PHQ-9 Depression Total Score: 7 01/18/20 19 12:34 PM CDT documented as of this encounter Care Teams Copy Chaser Relationship Specialty Start Date End Date Vianey Meyer FNP [address] [place] [address] PCP - General Nurse Practitioner Family 06/21/1805/22/21 documented as of this encounter
--- OUTSIDE RECORDS SUMMARY | 2024-07-24 00:49 | XMS_ITS | Encounter Summary ---
Author Organization [facility] Address [address] [place] [address]. [place], [place] [address] [place] [address] Care Team Providers Care Nursing Assistant Name Role Phone Vianey Meyer EMANI Primary Care Provider [phone] Encounter Details Date Type Department Care Team (Late Contact Info) Description 11/04/2019 Orders Only [facility] Medical [facility] Family & Internal Medicine [address] [phone] Susy Perry, PRISCILA Social History Tobacco Use Types Packs/Day Years [...] (Late Contact Info) Description 09/08/2024 10:10 AM MOTOR AND GENERATOR BRUSH CUTTER Office Visit [facility] Medical [facility] Family Medicine [facility] [address] [place] [address] Samantha Sanders MD [address] [place] [address] documented as of this encounter Visit Diagnoses Not on filedocumented in this encounter Additional Health Concerns Assessment Noted Time PHQ-9 Depression Total Score: 7 01/18/20 19 12:34 PM CDT documented as of this encounter Care Teams Nursing Assistant Relationship Specialty Start Date End Date Vianey Meyer FNP [address] [place] [address] PCP - General Nurse Practitioner Family 06/21/1805/22/21 documented as of this encounter
--- OUTSIDE RECORDS SUMMARY | 2024-07-24 00:49 | XMS_ITS | Encounter Summary ---
Author Organization [facility] Address [address] [place] [address]. [place], [place] [address] [place] [address] Care Team Providers Care Book Repairer Name Role Phone Vianey Meyer EMANI Primary Care Provider [phone] Encounter Details Date Type Department Care Team (Latest Contact Info) Description 09/13/2019 Travel Social History Tobacco Use Types Packs/Day [...] st Contact Info) Description 09/08/2024 10:10 AM KITCHENHAND Office Visit [facility] Medical Group Family Medicine - [place] [address] [place] [phone] Samantha Sanders MD [address] [place] [phone] documented as of this encounter Visit Diagnoses Not on filedocumented in this encounter Additional Health Concerns Assessment Noted Time PHQ-9 Depression Total Score: 7 01/18/20 19 12:34 PM CDT documented as of this encounter Care Teams Book Repairer Relationship Specialty Start Date End Date Vianey Meyer FNP [address] [place], [place] [phone] PCP - General Nurse Practitioner Family 06/21/1805/22/21 documented as of this encounter
--- OUTSIDE RECORDS SUMMARY | 2024-07-24 00:49 | XMS_ITS | Encounter Summary ---
Author Organization [facility] Address [address] [place] [address]. [place] [address] Care Team Providers Care Oyster Farmer Name Role Phone Vianey Meyer Primary Care Provider [phone] Reason for Visit * Reason Onset Date Comments Refill Request 09/19/2019 Encounter Details Date Type Department Care Team (Late st Contact Info) Description 09/19/2019 Telephone [facility] Medical Group Family & Internal Medicine [place] [id number] [place] [address] Vianey Meyer FNP [facility]1 [place], [place] [phone] Refill Request Social History Tobacco Use Types [...] encounter Progress Notes * EMANI Crowder - 09/21/2019 9:35 PM CST Yes. She had switched due to insurance, reportedly. ER TRAP * Alanna Almaguer MA - 09/20/2019 12:57 PM CST Manpreet states that she only saw Dr Medel due to a thumb injury. Are you still willing to be her PCP ER TRAP * Mila Liu - 09/19/2019 2:02 PM CST Patient established care with dr. Medel in [place] sometime after 08/02/2019. We are no longerher PCP. ER TRAP * Alanna Almaguer MA - 09/19/2019 11:18 AM CST Patient matilda should have gone to [place] [facility] instead of [facility] . Can this be resent please ? ER TRAP documented in this encounter Plan of Treatment Upcoming Encounters Date Type Department Care Team (Late st Contact Info) Description 09/08/2024 10:10 AM FISHER TRAP Office Visit [facility] Medical Group Family Medicine - [place] [address] [facility] [address] [place] [address] Samantha Sanders MD [address] [facility] [address] [place] [address] documented as of this encounter Visit Diagnoses Diagnosis Attention deficit disorder, unspecified hyperactivity presence documented in this encounter Additional Health Concerns Assessment Noted Time PHQ-9 Depression Total Score: 7 01/18/20 19 12:34 PM CDT documented as of this encounter Care Teams Oyster Farmer Relationship Specialty Start Date End Date Vianey Meyer FNP [address] [place] [address] PCP - General Nurse Practitioner Family 06/21/1805/22/21 documented as of this encounter
--- OUTSIDE RECORDS SUMMARY | 2024-07-24 00:49 | XMS_ITS | Encounter Summary ---
Author Organization [facility] Address [address] [place] [address]. [place] [id number] Care Team Providers Care Retail Analyst Name Role Phone Suzie Coulter Primary Care Provider [phone] Reason for Visit * Reason Onset Date Comments Medication Problem 05/24/2019 Encounter Details Date Type Department Care Team (Late st Contact Info) Description 05/24/2019 Telephone [facility] Family & Internal Medicine [place] [id number] [place] [address] Suzie Coulter FNP [facility] [place] [address] Medication Problem Social History Tobacco [...] encounter Progress Notes * EMANI Crowder - 05/31/2019 5:33 PM CSTAddended by: SUZIE COULTER on: 05/31/2019 05:33 PM Modules accepted: Orders CTOR OF PROMOTIONS * EMANI Crowder - 05/31/2019 5:32 PM CSTAddended by: SUZIE COULTER on: 05/31/2019 05:32 PM Modules accepted: Orders CTOR OF PROMOTIONS * Alanna Almaguer MA - 05/31/2019 8:51 AM CST Patient only received 90 tablets and is now out of medication.please send to [facility] CTOR OF PROMOTIONS CTOR OF PROMOTIONS * Jamaica Perry MA - 05/25/2019 3:21 PM CST Patient contacted and informed of the to early of a refill. Patient became upset and was wanting tochange her pharmacy then wanted to come off the medicine all together and then talked about changing her pcp. Informed that I would pass this info to you and call her back if needed. She states that you should be the one talking to her and calling back. Offered an appointment in office and patient d eclined. tn CTOR OF PROMOTIONS * Jamaica Perry MA - 05/25/2019 2:28 PM CST Spoke with [facility] and last fill was #90 on 05/09/19 because [facility] only covers # 90 for 30 days. The remainder of 30 on the rx was discarded. This quantity should last 22 days so it is to early. CTOR OF PROMOTIONS * EMANI Crowder - 05/25/2019 12:36 PM CST I thought jamaica checked with the pharmacy and she had enough? CTOR OF PROMOTIONS * Alyssia Smith RN - 05/25/2019 9:27 AM CST Check to make sure I entered the amount correctly please. Med pended. CTOR OF PROMOTIONS * EMANI Crowder - 05/24/2019 5:38 PM CST If she has did only get 90 tablets, we can send over the 30 tablets CTOR OF PROMOTIONS * Sneha Batista - 05/24/2019 4:27 PM CST Patient stated that she is having issues with [facility] since they have switched the owners. She stated that the old repairer veneer sheet used to allow her to pickling tank operator 90 tablets then a couple days later pickling tank operator 30 more to equal her 120 prescribed amount of adderall. She stated that the new repairer veneer sheet will notallow her to do that and states that he can not since the prescription would be voided. She also made the statement that she sometimes forgets to take her medication and has forgotten to pickling tank operator her prescription a week at a time. She would like you to send her a new prescription to [facility] in [place] with 30 tablets since [facility] only allowed her 90 tablets. She also mentioned that she thinks her pharmacy switched her medication because she feels differentwith this new prescription that she recently picked. CTOR OF PROMOTIONS documented in this encounter Plan of Treatment Upcoming Encounters Date Type Department Care Team (Late st Contact Info) Description 09/08/2024 10:10 AM DIRECTOR OF PROMOTIONS Office Visit [facility] Family Medicine - [place] [address] [place] [address] Samantah Sanders MD [address] [place], [place] [address] documented as of this encounter Visit Diagnoses Diagnosis Attention deficit disorder, unspecified hyperactivity presence Elevated WBC count Leukocytosis, unspecified Ulcerative colitis ([facility]) Ulcerative colitis, unspecified Fever Fever, unspecified Insomnia due to other mental disorder Depression with anxiety Dysthymic disorder Generalized anxiety disorder documented in this encounter Additional Health Concerns Assessment Noted Time PHQ-9 Depression Total Score: 7 01/18/20 19 12:34 PM CDT documented as of this encounter Care Teams Retail Analyst Relationship Specialty Start Date End Date Suzie Coulter FNP [address] [place] [address] PCP - General Nurse Practitioner Family 06/21/1805/22/21 documented as of this encounter
--- OUTSIDE RECORDS SUMMARY | 2024-07-24 00:49 | XMS_ITS | Encounter Summary ---
Author Organization [facility] Address [address] [place] [address]. [place], [place] [address] [place] [address] Care Team Providers Care Shake Out Worker Name Role Phone Vianey Meyer EMANI Primary Care Provider [phone] Reason for Visit * Reason Comments URI cough and congestion headache runny nose sore throat slight sob, pain in shoulder blades since yesterday Encounter Details Date Type Department Care Team (Late st Contact Info) Description 10/20/2019 3:20 PM CDT Office Visit [facility] Family Medicine [facility] [address] [place] [address] Sánchez Rodriguez MD [address] [facility] [address] [place] [address] URI (cough and congestion headache runny nose sore throat slight sob, pain in shoulder blades since yesterday) Social History Tobacco Use Types Packs/Day Years [...] Sign Reading Time Taken Comments Blood Pressure 135/91 10/20/2019 3:58 PM CDT Pulse 95 10/20/2019 3:58 PM CDT Temperature 36.8 ??C (98.2 ??F) 10/20/2019 3:58 PM CD T Respiratory Rate 14 10/20/2019 3:58 PM CDT Oxygen Saturation 100% 10/20/2019 3:58 PM CDT Inhaled Oxygen Concentration - - Weight 63.5 kg (140 lb) 10/20/2019 3:58 PM CDT Height - - Body Mass Index 27.34 09/13/2019 2:52 PM PULPWOOD BUYER documented in this encounter Progress Notes * Sánchez Rodriguez MD - 10/20/2019 3:20 PM CDT Images from the original note were not included. Office Progress Note Chief Complaint Patient presents with ??? URI cough and congestion headache runny nose sore throat slight sob, pain in shoulder blades since yesterday SUBJECTIVE: Karlie Ivory is a 44-year-old female w/ URI symptoms for 2 days. Patient attempting to take care of symptoms at home without relief. Patient with potential flu vs COVID-19 vs other viral illness with URI symptoms consistent with the following: Does the patient report a cough? Yes Does the patient have a fever? No Does the patient have shortness of breath? Yes Does the patient have other comorbidities? no Did the patient travel in last 14 days? no Did the patient travel to a COVID-19 affected area? no (refer to https://www.cdc.gov/coronavirus/2019-ncov/travelers/index.html) Has the patient been in contact with someone who has had a cough, fever, or traveled? Yes Has the patient been exposed to a confirmed positive COVID-19 case? No ROS: Review of Systems Constitutional: Positive for chills. Negative for fever. HENT: Positive for congestion, rhinorrhea, sneezing and sore throat. Negative for sinus pressure and sinus pain. Respiratory: Positive for cough. Negative for shortness of breath and wheezing. Cardiovascular: Negative for chest pain and palpitations. Gastrointestinal: Negative for constipation, diarrhea, nausea and vomiting. Reviewed and negative unless otherwise noted. Current Outpatient Medications: ??? azelastine 0.1 % nasal spray, 2 sprays by Nasal route 2 (two) times daily. Use in each nostril as directed, Disp: 30 mL, Rfl: 0 ??? amphetamine-dextroamphetamine (ADDERALL) 10 MG tablet, Take 1 tablet (10 mg total) by mouth 3 (three) times daily., Disp: 90 tablet, Rfl: 0 ??? buPROPion 75 MG tablet, Take 1 tablet (75 mg total) by mouth 2 (two) times daily., Disp: 60 tablet, Rfl: 2 ??? busPIRone 10 MG tablet, Take 1 [...] bedtime, Disp: 30 tablet, Rfl: 2 ??? trazodone 50 MG tablet, , Disp: , Rfl: No Known Allergies Past Medical History: Diagnosis Date ??? Bowel [...] file Gets together: Not on file Attends jew service: Not on file Active member of [...] History Narrative ??? Not on file Family History Problem Relation Name Age of Onset ??? Heart Mother ??? Heart Father ??? Heart Paternal Grandfather ??? Aneurysm Paternal Grandfather ??? Cancer Paternal Grandfather colon Family Status Relation Name Status ??? Mother (Not Specified) ??? Father (Not Specified) ??? PGF (Not Specified) Nursing Notes and Vitals Signs independently reviewed. OBJECTIVE: Filed Vitals: 10/20/19 1558 BP: (!) 135/91 Pulse: 95 Resp: 14 Temp: 98.2 ??F (36.8 ??C) SpO2: 100% Weight: 63.5 kg (140 lb) Physical Exam Constitutional: She is oriented to person, place, and time. She appears well- developed and well-nourished. HENT: Head: Normocephalic and atraumatic. Right Ear: External ear normal. Left Ear: External ear normal. Nose: Nose normal. Mouth/Throat: Oropharynx is clear and moist. Eyes: Pupils are equal, round, and reactive to light. Conjunctivae and EOM are normal. Neck: Normal range of motion. Cardiovascular: Normal rate, regular rhythm, normal heart sounds and intact distal pulses. Pulmonary/Chest: Effort normal and breath sounds normal. Musculoskeletal: Normal range of motion. Neurological: She is alert and oriented to person, place, and time. Skin: Skin is warm. Psychiatric: She has a normal mood and affect. Her behavior is normal. Judgment and thought contentnormal. Nursing note and vitals reviewed. DIAGNOSTICS: Rapid Flu Negative Rapid Strep Negative Recommendations and Plan: MEDICAL DECISION MAKING: Discharge Instructions printed. Prescriptions, if applicable, have been sent to the pharmacy on file. ASSESSMENT: 1. Flu-like symptoms INFLUENZA A & B RAPID STREP A STREP A, DNA 2. Acute non-recurrent maxillary sinusitis azelastine 0.1 % nasal spray Orders Placed This Encounter ??? azelastine 0.1 % nasal spray ? ? INFLUENZA A & B ??? RAPID STREP A ??? STREP A, DNA ASSAY (for Confirmation only) CDC/ILDPH recommends: If cough, fever, shortness of breath AND travel to an affected area within the last 14 days then consider testing for COVID-19 Because of COVID-19 test kit and supply constraints, the IDPH laboratories will only accept: Specimens from hospitalized patients with severe acute lower respiratory illness (e.g., pneumonia) or Specimens from clusters in a congregate setting that serves more vulnerable populations such as a supportive care facility, assisted living facility, detention, homeless nursing home, or correctional setting.As of 10/17/2019 Patient with URI symptoms and concern for COVID-19. Discussed current CDC guidelines for testing and treatment in detail. Patient does meet criteria for testing and completed testing as appropriate for CDC guidelines and ILDPH instruction. Reviewed chronic medications for potential increase in complications (theoretically) with seth inhibitors and arbs and adjusted as appropriate. Recommended tylenol as main fever pastry chef and comfort. Diagnostic testing ordered as appropriate for level of severity of symptoms for this time. Will give medications as ordered and discussed side effects in detail. Discussed sx care of fluids, rest, and good hydration. Patient given instructions on their usage and to return to clinic if symptoms do not improve, new fever after 7 days or symptoms longer than 10 days. ER precautions given in detail and patient agrees to followup if symptoms worsen. Discussed self quarantine in detail for the patient and current CDC and ILDPH guidelines. Patient expressed understanding of these instructions. 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 Likely sinusitis to allergies. Patient with allergic rhinitis. Discussed the stepwise treatment of allergic rhinitis along with oral and topical therapy. Discussed and demonstrated appropriate technique for use of nasal sprays. RTC PRN. Discussed using Sinus Rinse as well. Patient agrees with treatment plan. SÁNCHEZ RODRIGUEZ MD Your request for testing SS, 45 years, on 10-20-2019 09:43 for COVID-19 at the [facility] has been approved by [facility]. Your authorization code for testing is: [id number] If the submitter on the authorization form cannot collect a specimen, the authorization code is NOTVALID. The facility listed on the authorization form must match the facility on the lab requisitionform. If the patient is not hospitalized, ensure patient is following appropriate home isolation guidelines found at Home Isolation Guidance The only specimens to be submitted for patients on the initial screen include: 1 nasopharyngeal (TOE PUNCHER). Use synthetic fiber swabs with plastic shafts. Do not use calcium alginate swabs or swabs with wooden shafts, as they may contain substances that inactivate some viruses and inhibit PCR testing. Place swabs immediately into sterile tubes containing 2-3 ml of viral transport media. TOE PUNCHER specimens should be kept in separate vials. Make sure the patient identifiers are clearly labeled for tracking and reporting purposes on both the specimen tube and [facility] lab requisition form. Specimens collected <= 72 hours from submission should be held at 2-8??C and sent on ice packs to the nearest [facility] laboratory (locations are specified on the Laboratory Requisition Form). Once you have submitted the specimen, it will take 1-3 days to receive testing results. Please verify the patient information and download the authorization form that should be sent alongwith the specimens by clicking the link below: [facility] COVID-19 AUTHORIZATION FORM If the link above does not work, try copying the link below into your web browser: [email or web address] This link is unique to you and should not be forwarded to others. WARNING! - This email is from an external sender. Do not click links or open attachments unless youknow the sender. Never give out your username and password. documented in this encounter Plan of Treatment Upcoming Encounters Date Type Department Care Team (Late st Contact Info) Description 09/08/2024 10:10 AM PULPWOOD BUYER Office Visit [facility] Family Medicine - [place] [address] [place] [address] Samantha Sanders MD [address] [place] [address] documented as of this encounter Procedures Procedure Name Priority Date/Time Associated Diagnosis Comments INFLUENZA A & B Routine 10/20/2019 Flu-like symptoms documented in this encounter Results * STREP A, DNA ASSAY (for Confirmation only) (10/20/2019 3:44 PM CDT) STREP A MOLECULAR NEGATIVE NEGATIVE 020 8:52 PM CDT [facility] Comment:SPECIMEN NEGATIVE FO R GROUP A STREPTOCOCCUS BY DNA AMPLIFICATION STRUCTURE OF ANTERIOR PORTION OF NECK / Unknown 10/20/2019 3:44 PM CDT Sánchez Rodriguez MD MICROBIOLOGY - GENERAL ORDERA BLES Final Result [facility] [address] [place] [address], [place] [phone] * INFLUENZA A & B (10/20/2019) INFULENZA A AB NEGATIVE NEGATIVE [address], [place] INFLUENZA B AB NEGATIVE NEGATIVE [address], [place] Internal Control: VALID VALID [address] [place] NASAL STRUCTURE / Unknown 10/20/2019 Sánchez Rodriguez MD MICROBIOLOGY - GENERAL ORDERA BLES Final Result [address], [place] [address] [place] [address], [place] [phone] documented in this encounter Visit Diagnoses Diagnosis Flu-like symptoms- Primary Influenza with other respiratory manifestations Acute non-recurrent maxillary sinusitis documented in this encounter Additional Health Concerns Assessment Noted Time PHQ-9 Depression Total Score: 7 01/18/20 19 12:34 PM CDT documented as of this encounter Care Teams Shake Out Worker Relationship Specialty Start Date End Date Vianey Meyer FNP [address] [place] [address] PCP - General Nurse Practitioner Family 06/21/1805/22/21 documented as of this encounter
--- OUTSIDE RECORDS SUMMARY | 2024-07-24 00:49 | XMS_ITS | Encounter Summary ---
Author Organization [facility] Address [address] [place] [address]. [place], [place] [address] [place] [address] Care Team Providers Care Park Maintenance Technician Name Role Phone Vianey Meyer ELECTRICIAN SUBSTATION Primary Care Provider [phone] Reason for Visit * Reason Comments Lab (SCAN) Encounter Details Date Type Department Care Team (Latest Contact Info) Description 10/20/2019 Scan [facility] Scanned, Documents Lab (SCAN) Social History Tobacco Use Types [...] st Contact Info) Description 09/08/2024 10:10 AM VISITOR INFORMATION ASSISTANT Office Visit [facility] Family Medicine - [place] [address] [facility] [address] [place] [phone] Samantha Sanders MD [address] [place] [address] documented as of this encounter Procedures Procedure Name Priority Date/Time Associated Diagnosis Comments OUTSIDE LAB (SCAN ORDER) Routine 10/20/2019 documented in this encounter Results * OUTSIDE LAB (10/20/2019) CORONAVIRUS SARS COV 2 PCR (RESP) NEGATIVE [facility] ONBASE 10/20/2019 us Documents Scanned SCANNING Edited Result - Final HS ONBASE documented in this encounter Visit Diagnoses Not on filedocumented in this encounter Additional Health Concerns Assessment Noted Time PHQ-9 Depression Total Score: 7 01/18/20 19 12:34 PM CDT documented as of this encounter Care Teams Park Maintenance Technician Relationship Specialty Start Date End Date Vianey Meyer FNP [address] [place] [address] PCP - General Nurse Practitioner Family 06/21/1805/22/21 documented as of this encounter
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
--- OUTSIDE RECORDS SUMMARY | 2024-07-24 00:49 | XMS_ITS | Encounter Summary ---
Author Organization [facility] Address [address] [place] [address]. [place] [id number] [place], [place] [id number] Care Team Providers Care Housekeeping/Laundry Supervisor Name Role Phone Vianey Meyer Primary Care Provider Reason for Visit * Reason Onset Date Comments Medication Request 06/21/2019 Encounter Details Date Type Department Care Team (Late st Contact Info) Description 06/21/2019 Telephone [facility] Family & Internal Medicine [place] [phone] [place] [address] Vianey Meyer FNP [facility] [place], [place] [id number] Medication Request Social History Tobacco Use Types [...] encounter Progress Notes * EMANI Crowder - 06/29/2019 3:10 PM CST I sent the focalin xr over to pharmacy RVISORY CBP OFFICER * Alanna Almaguer MA - 06/29/2019 1:50 PM CST Sent back to Vianey for new rx RVISORY CBP OFFICER * Alanna Almaguer MA - 06/21/2019 5:06 PM CST Patient notified and v/u RVISORY CBP OFFICER * EMANI Crowder - 06/21/2019 5:02 PM CST We can switch this when she is due for more medication on 06/30 RVISORY CBP OFFICER * Sneha Batista - 06/21/2019 12:27 PM CST Patient called in asking if you would take her off of her Adderall and prescribe her Focalin XR? She stated that the adderall is making her tired and have muscle tension. She would like the medication to go to [facility] and also a call back with your decision. RVISORY CBP OFFICER documented in this encounter Plan of Treatment Upcoming Encounters Date Type Department Care Team (Late st Contact Info) Description 09/08/2024 10:10 AM SUPERVISORY CBP OFFICER Office Visit [facility] Family Medicine - [place] [address] [facility] [address] [place] [address] Samantha Sanders MD [address] [place] [address] documented as of this encounter Visit Diagnoses Not on filedocumented in this encounter Additional Health Concerns Assessment Noted Time PHQ-9 Depression Total Score: 7 01/18/20 19 12:34 PM CDT documented as of this encounter Care Teams Housekeeping/Laundry Supervisor Relationship Specialty Start Date End Date Vianey Meyer FNP [address] [place] [address] PCP - General Nurse Practitioner Family 06/21/1805/22/21 documented as of this encounter
--- OUTSIDE RECORDS SUMMARY | 2024-07-24 00:49 | XMS_ITS | Encounter Summary ---
Author Organization [facility] Address [address] [place] [address]. [place], [place] [address] [place], [place] [id number] Care Team Providers Care Substance Abuse Technician Name Role Phone Vianey Meyer Primary Care Provider [phone] Encounter Details Date Type Department Care Team (Late st Contact Info) Description 10/17/2019 Orders Only [facility] Medical Group Family & Internal Medicine [facility] [address] [place] [address] Vianey Meyer FNP [facility] [place] [address] Social History Tobacco Use Types Packs/Day Years [...] encounter Progress Notes * EMANI Crowder - 10/17/2019 9:22 AM CDT Med refill sent out. documented in this encounter Plan of Treatment Upcoming Encounters Date Type Department Care Team (Late st Contact Info) Description 09/08/2024 10:10 AM PRODUCT APPLICATIONS SCIENTIST Office Visit [facility] Medical Group Family Medicine - [place] [address] [facility] [address] [place] [address] Samantha Sanders MD [address] [facility] [address] [place] [address] documented as of this encounter Visit Diagnoses Diagnosis Attention deficit disorder, unspecified hyperactivity presence- Primary documented in this encounter Additional Health Concerns Assessment Noted Time PHQ-9 Depression Total Score: 7 01/18/20 19 12:34 PM CDT documented as of this encounter Care Teams Substance Abuse Technician Relationship Specialty Start Date End Date Vianey Meyer FNP [facility] [place] [address] PCP - General Nurse Practitioner Family 06/21/1805/22/21 documented as of this encounter
--- OUTSIDE RECORDS SUMMARY | 2024-07-24 00:49 | XMS_ITS | Encounter Summary ---
Author Organization [facility] Address [address] [place] [address]. [place], [place] [address] [place], [place] [id number] Care Team Providers Care Ent Nurse Name Role Phone Vianey Meyer Primary Care Provider [phone] Encounter Details Date Type Department Care Team (Late st Contact Info) Description 06/29/2019 Orders Only [facility] Medical Group Family & Internal Medicine [facility] [address] [place] [address] Vianey Meyer FNP [facility] [place] [address] Social History Tobacco Use Types Packs/Day Years [...] Progress Notes * EMANI Crowder - 06/29/2019 3:08 PM CST Medication sent over NE OILER documented in this encounter Plan of Treatment Upcoming Encounters Date Type Department Care Team (Late st Contact Info) Description 09/08/2024 10:10 AM MARINE OILER Office Visit [facility] Medical Group Family Medicine - [place] [address] [facility] [address] [place] [address] Samantha Sanders MD [address] [place] [address] documented as of this encounter Visit Diagnoses Diagnosis Attention deficit disorder, unspecified hyperactivity presence- Primary documented in this encounter Additional Health Concerns Assessment Noted Time PHQ-9 Depression Total Score: 7 01/18/20 19 12:34 PM CDT documented as of this encounter Care Teams Ent Nurse Relationship Specialty Start Date End Date Vianey Meyer FNP [address] [place] [address] PCP - General Nurse Practitioner Family 06/21/1805/22/21 documented as of this encounter
--- OUTSIDE RECORDS SUMMARY | 2024-07-24 00:49 | XMS_ITS | Encounter Summary ---
Author Organization [facility] Address [address] [place] [address]. [place], [place] [address] [place] [address] Care Team Providers Care Mri Specialist Name Role Phone Vianey Meyer Primary Care Provider [phone] Encounter Details Date Type Department Care Team (Late st Contact Info) Description 10/22/2019 [facility] Medical Group Family & Internal Medicine [facility] [address] [place] [phone] Vianey Meyer FNP [facility] [place] [address] Social History Tobacco Use Types Packs/Day Years [...] encounter Progress Notes * EMANI Crowder - 10/22/2019 10:43 AM CDT meds sent to Pharmacy documented in this encounter Plan of Treatment Upcoming Encounters Date Type Department Care Team (Late st Contact Info) Description 09/08/2024 10:10 AM CEMENTER OIL WELL Office Visit [facility] Medical Group Family Medicine - [place] [address] [facility] [address] [place] [phone] Samantha Sanders MD [address] [place] [address] documented as of this encounter Visit Diagnoses Not on filedocumented in this encounter Additional Health Concerns Assessment Noted Time PHQ-9 Depression Total Score: 7 01/18/20 19 12:34 PM CDT documented as of this encounter Care Teams Mri Specialist Relationship Specialty Start Date End Date Vianey Meyer FNP [address] [place] [address] PCP - General Nurse Practitioner Family 06/21/1805/22/21 documented as of this encounter
--- OUTSIDE RECORDS SUMMARY | 2024-07-24 00:49 | XMS_ITS | Encounter Summary ---
Author Organization [facility] Address [address] [place] [address]. [place], [place] [address] [place] [address] Care Team Providers Care Location And Measurement Technician Name Role Phone Vianey Meyer EMANI Primary Care Provider [phone] Encounter Details Date Type Department Care Team (Latest Contact Info) Description 09/26/2019 Scan HEALTH INFO SRVCS Scanned, Documents Social [...] ( Contact Info) Description 09/08/2024 10:10 AM EARTH SCIENCE LABORATORY TECHNICIAN Office Visit [facility] Medical Group Family Medicine - [place] [address] [place] [address] Samantha Sanders MD [address] [place] [address] documented as of this encounter Visit Diagnoses Not on filedocumented in this encounter Additional Health Concerns Assessment Noted Time PHQ-9 Depression Total Score: 7 01/18/20 19 12:34 PM CDT documented as of this encounter Care Teams Location And Measurement Technician Relationship Specialty Start Date End Date Vianey Meyer FNP [address] [place] [address] PCP - General Nurse Practitioner Family 06/21/1805/22/21 documented as of this encounter
--- OUTSIDE RECORDS SUMMARY | 2024-07-24 00:49 | XMS_ITS | Encounter Summary ---
Author Organization [facility] Address [address] [place] [address]. [place] [address] Care Team Providers Care Package Pick Up Name Role Phone Vianey Meyer Primary Care Provider [phone] Reason for Visit * Reason Comments Recheck Encounter Details Date Type Department Care Team (Late st Contact Info) Description 11/04/2019 1:40 PM CDT Office Visit [facility] Medical Group Family & Internal Medicine [address] [phone] Vianey Meyer FNP [address] [place] [phone] Recheck Social History Tobacco Use Types Packs/Day Years [...] Sign Reading Time Taken Comments Blood Pressure 111/77 11/04/2019 1:58 PM CDT Pulse 79 11/04/2019 1:58 PM CDT Temperature 35.9 ??C (96.6 ??F) 11/04/2019 1:58 PM CD T Respiratory Rate 16 11/04/2019 1:58 PM CDT Oxygen Saturation 100% 11/04/2019 1:58 PM CDT Inhaled Oxygen Concentration - - Weight 63 kg (139 lb) 11/04/2019 1:58 PM CDT Height 152.4 cm (5') 11/04/2019 1:58 PM CDT Body Mass Index 27.15 11/04/2019 1:58 PM CDT documented in this encounter Patient Instructions * Patient Instructions* EMANI Crowder - 11/04/2019 1:40 PM CDT -Get your labs done and we will call you with your results when they come back. - start the increased dose of Wellbutrin and adderall as we discussed today. - continue other medications as previously prescribed and directed. - back to work note for Thursday. - continue follow up with your counselor as we discussed. - call for any questions or concerns -f/u in 3 months or sooner if needed. documented in this encounter Progress Notes * EMANI Crowder - 11/04/2019 1:40 PM CDT Office Progress Note Reason for Visit: Recheck History of Present Illness: Karlie presents to the office to get a release to go back to work. She was tested a couple weeks ago for COVID 19 due to exposure and symptoms. Her testing was negative. She reports that she is feeling better and is symptom free. She would like a note to return to work next Thursday. She also reports that she has been feeling more depressed lately. She is not sure that her wellbutrin is helping or has ever helped, but she has said at her past office visits that this was in fact helping with her symptoms. We discussed increasing her dose at this time and she is agreeable. Does see psychiatrist and counselor routinely, but her psychiatrist is wanting this office to continue filling her medications. She has not seen them since the social isolation started. She denies any SI orHI presently. She also has been needing more adderall lately due to having issues with staying on task. We discussed increasing this medication. We also discussed inappropriate use of her medications and misuse and she was advised that the pharmacy might not fill her prescription earlier than the and she justin balizes understanding. She is wanting an increase of her adderall dose. We discussed that 40 mg is the highest we will RX. She verbalizes understanding of this. She also discussed her desire to have something for her anxiety such as a benzodiazepine, as she has had these in the past, but we discussed that I would not prescribe these with the medications she is currently on. She will continue her buspirone as previously prescribed. insomnia is needing refills of her lunesta. She reports that this is working well. ROS: Review of Systems Constitutional: Negative for chills, diaphoresis, fever, malaise/fatigue and weight loss. HENT: Negative for congestion, [...] frequency, hematuria and urgency. Musculoskeletal: Negative for falls, joint pain and myalgias. Neurological: Negative for dizziness, tingling, tremors, sensory change, speech change, focal weakness, seizures, loss of consciousness, weakness and headaches. Psychiatric/Behavioral: Positive for depression. Negative for hallucinations, substance abuse and suicidal ideas. The patient has insomnia. The patient is not nervous/anxious. Medications: Current Outpatient Medications on File Prior to Visit Medication Sig ??? azelastine 0.1 % nasal spray 2 sprays by Nasal route 2 (two) times daily. Use in each nostril as directed ??? dicyclomine 10 MG capsule Take 10 mg by mouth as needed. ??? busPIRone 10 MG tablet Take 1 tablet (10 mg total) by mouth 2 (two) times daily. (Patient taking differently: Take 10 mg by mouth 2 (two) times daily as needed. ) No current facility-administered medications on file prior [...] file Gets together: Not on file Attends worship service: Not on file Active member of [...] external ear normal. Nose: Nose normal. Mouth/Throat: Oropharynx is clear and moist and mucous membranes are normal. Eyes: Conjunctivae, EOM and lids are normal. Neck: Trachea normal, normal range of motion, full passive range of motion without pain and phonation normal. Neck supple. No tracheal deviation present. No thyroid mass and no thyromegaly present. Cardiovascular: Normal rate, regular rhythm, normal heart sounds and intact distal pulses. Exam reveals no gallop and no friction rub. No murmur heard. Pulmonary/Chest: Effort normal. No accessory muscle usage. No respiratory distress. She has no decreased breath sounds. She has no wheezes. She has no rhonchi. She has no rales. Abdominal: Soft. Bowel sounds are normal. She exhibits no distension and no mass. There is no tenderness. There is no rebound and no guarding. Musculoskeletal: Normal range of motion. She exhibits no tenderness or deformity. Lymphadenopathy: She has no cervical adenopathy. Neurological: She is alert and oriented to person, place, and time. She has normal reflexes. No cranial nerve deficit. Coordination and gait normal. Skin: Skin is warm, dry and intact. No rash noted. No erythema. Psychiatric: She has a normal mood and affect. Her speech is normal and behavior is normal. Judgment and thought content normal. Cognition and memory are normal. Nursing note and vitals reviewed. Filed Vitals: 11/04/19 1358 BP: 111/77 Pulse: 79 Resp: 16 Temp: 96.6 ??F (35.9 ??C) SpO2: 100% Weight: 63 kg (139 lb) Height: 5' (1.524 m) Diagnoses/Impression: 1. Depression with anxiety buPROPion XL 300 MG 24 hr tablet CBC W/DIFF AUTOMATED 2. Attention deficit disorder, unspecified hyperactivity presence amphetamine- dextroamphetamine (ADDERALL) 20 MG tablet CBC W/DIFF AUTOMATED TSH W/REFLEX 3. Vitamin D deficiency VITAMIN D, 25 OH 4. Generalized anxiety disorder CBC W/DIFF AUTOMATED 5. Insomnia due to other mental disorder TSH W/REFLEX Eszopiclone (LUNESTA) 3 MG Tab 6. Fatigue, unspecified type TSH W/REFLEX 7. Encounter for lipid screening for cardiovascular disease LIPID PANEL 8. Screening for endocrine, nutritional, metabolic and immunity disorder URINALYSIS WI REFLEX TO CULTURE URIC ACID BLOOD COMPREHENSIVE METABOLIC PANEL Recommendations and Plan: 1. Depression with anxiety - buPROPion XL 300 MG 24 hr tablet; Take 1 tablet (300 mg total) by mouth daily. Dispense: 90 tablet; Refill: 3 - CBC W/DIFF AUTOMATED; Future 2. Attention deficit disorder, unspecified hyperactivity presence - amphetamine-dextroamphetamine (ADDERALL) 20 MG tablet; Take 1 tablet (20 mg total) by mouth 2 (two) times daily. Dispense: 60 tablet; Refill: 0 - CBC W/DIFF AUTOMATED; Future - TSH W/REFLEX; Future 3. Vitamin D deficiency - VITAMIN D, 25 OH; Future 4. Generalized anxiety disorder - CBC W/DIFF AUTOMATED; Future 5. Insomnia due to other mental disorder - TSH W/REFLEX; Future - Eszopiclone (LUNESTA) 3 MG Tab; Take 3 mg by mouth nightly at bedtime. Take immediately before bedtime Dispense: 30 tablet; Refill: 2 6. Fatigue, unspecified type - TSH W/REFLEX; Future 7. Encounter for lipid screening for cardiovascular disease - LIPID PANEL; Future 8. Screening for endocrine, nutritional, metabolic and immunity disorder - URINALYSIS WI REFLEX TO CULTURE; Future - URIC ACID BLOOD; Future - COMPREHENSIVE METABOLIC PANEL; Future - start the increased dose of Wellbutrin and adderall as we discussed today. - continue other medications as previously prescribed and directed. - labs as ordered - back to work note for Thursday. - continue follow up with your counselor as we discussed. - call for any questions or concerns -f/u in 3 months or sooner if needed. Orders Placed This Encounter ??? CBC W/DIFF AUTOMATED ??? LIPID PANEL ??? TSH W/REFLEX ??? VITAMIN D, 25 OH ??? URINALYSIS WI REFLEX TO CULTURE ??? URIC ACID BLOOD ??? COMPREHENSIVE METABOLIC PANEL ??? buPROPion XL 300 MG 24 hr tablet ??? amphetamine-dextroamphetamine (ADDERALL) 20 MG tablet ??? Eszopiclone (LUNESTA) 3 MG Tab Cannot display discharge medications since this is not an admission. PCP: EMANI KILGORE 11/04/2019 documented in this encounter Plan of Treatment Upcoming Encounters Date Type Department Care Team (Late st Contact Info) Description 09/08/2024 10:10 AM CLINICAL APPEALS SPECIALIST Office Visit [facility] Medical Group Family Medicine - [place] [address] [facility] [address] [place] [address] Samantha Sanders MD [address] [place] [address] documented as of this encounter Visit Diagnoses Diagnosis Depression with anxiety- Primary Dysthymic disorder Attention deficit disorder, unspecified hyperactivity presence Vitamin D deficiency Unspecified vitamin D deficiency Generalized anxiety disorder Insomnia due to other mental disorder Fatigue, unspecified type Encounter for lipid screening for cardiovascular disease Screening for endocrine, nutritional, metabolic and immunity disorder Screening for other and unspecified endocrine, nutritional, metabolic, and immunity disorders documented in this encounter Additional Health Concerns Assessment Noted Time PHQ-9 Depression Total Score: 7 01/18/20 19 12:34 PM CDT documented as of this encounter Care Teams Package Pick Up Relationship Specialty Start Date End Date Vianey Meyer FNP [address] [place] [address] PCP - General Nurse Practitioner Family 06/21/1805/22/21 documented as of this encounter
--- OUTSIDE RECORDS SUMMARY | 2024-07-24 00:49 | XMS_ITS | Encounter Summary ---
Author Organization [facility] Address [address] [place] [address]. [place], [place] [address] [place], [place] [id number] Care Team Providers Care Forging Die Sinker Name Role Phone Vianey Meyer Primary Care Provider [phone] Reason for Visit * Reason Onset Date Comments Results 10/24/2019 Encounter Details Date Type Department Care Team (Late st Contact Info) Description 10/24/2019 Telephone [facility] Medical Group Family & Internal Medicine [place] [address] [place] [address] Vianey Meyer FNP [facility] [place], [place] [phone] Results Social History Tobacco Use Types Packs/Day [...] as of this encounter Progress Notes * Janene Harris MA - 10/24/2019 8:47 AM CDT I spoke with patient and made her aware the COVID results we received for [facility] 10-24-2019 were negative, patient verbalized understanding and all questions were answered. documented in this encounter Plan of Treatment Upcoming Encounters Date Type Department Care Team (Late st Contact Info) Description 09/08/2024 10:10 AM COATING SUPERVISOR Office Visit [facility] Group Family Medicine - [place] [address] [facility] [address] [place] [address] Samantha Sanders MD [address] [place] [address] documented as of this encounter Visit Diagnoses Not on filedocumented in this encounter Additional Health Concerns Assessment Noted Time PHQ-9 Depression Total Score: 7 01/18/20 19 12:34 PM CDT documented as of this encounter Care Teams Forging Die Sinker Relationship Specialty Start Date End Date Vianey Meyer FNP [facility] [place] [address] PCP - General Nurse Practitioner Family 06/21/1805/22/21 documented as of this encounter
--- OUTSIDE RECORDS SUMMARY | 2024-07-24 00:49 | XMS_ITS | Encounter Summary ---
Author Organization [facility] Address [address] [place] [address]. [place] [phone] [place], [place] [phone] Care Team Providers Care Warehouse And Receiving Supervisor Name Role Phone Vianey Meyer EMANI Primary Care Provider [phone] Reason for Visit * Reason Comments Allied Health Visit Encounter Details Date Type Department Care Team (Latest Contact Info) Description 10/17/2019 11:20 AM CDT Allied Health/Nurse Visit [facility] Medical [facility] Family & Internal Medicine [address] [address] Allied Health Visit Social History Tobacco Use Types Packs/Day Years [...] st Contact Info) Description 09/08/2024 10:10 AM DRYWALL FOREMAN Office Visit [facility] Medical [facility] Family Medicine [place] [address] [place] [address] Samantha Sanders MD [address] [place] [address] documented as of this encounter Visit Diagnoses Diagnosis Need for immunization against influenza- Primary Need for prophylactic vaccination and inoculation against influenza documented in this encounter Additional Health Concerns Assessment Noted Time PHQ-9 Depression Total Score: 7 01/18/20 19 12:34 PM CDT documented as of this encounter Care Teams Warehouse And Receiving Supervisor Relationship Specialty Start Date End Date Vianey Meyer FNP [address] [place] [address] PCP - General Nurse Practitioner Family 06/21/1805/22/21 documented as of this encounter
--- OUTSIDE RECORDS SUMMARY | 2024-07-24 00:49 | XMS_ITS | Encounter Summary ---
Author Organization [facility] Address [address] [place] [address]. [place], [place] [address] [place], [place] [phone] Care Team Providers Care Deputy Sheriff Bailiff Name Role Phone Vianey Meyer Primary Care Provider [phone] Encounter Details Date Type Department Care Team (Late st Contact Info) Description 07/19/2019 Orders Only [facility] Medical Group Family & Internal Medicine [place] [address] [place] [address] Vianey Meyer FNP [facility] [place] [address] Social History Tobacco Use Types Packs/Day Years [...] encounter Progress Notes * EMANI Crowder - 07/19/2019 12:25 PM CST The Focalin is causing fogginess and agitation. She would like to go back on her vyvanse. RX escribed to [facility]. VISUAL DESIGNER documented in this encounter Plan of Treatment Upcoming Encounters Date Type Department Care Team (Late st Contact Info) Description 09/08/2024 10:10 AM UX VISUAL DESIGNER Office Visit [facility] Medical Group Family Medicine - [place] [address] [place] [address] Samantha Sanders MD [address] [place] [address] documented as of this encounter Visit Diagnoses Diagnosis Attention deficit disorder, unspecified hyperactivity presence- Primary documented in this encounter Additional Health Concerns Assessment Noted Time PHQ-9 Depression Total Score: 7 01/18/20 12:34 PM CDT documented as of this encounter Care Teams Deputy Sheriff Bailiff Relationship Specialty Start Date End Date Vianey Meyer FNP [facility] [place] [address] PCP - General Nurse Practitioner Family 06/21/1805/22/21 documented as of this encounter
--- OUTSIDE RECORDS SUMMARY | 2024-07-24 00:49 | XMS_ITS | Encounter Summary ---
Author Organization [facility] Address [address] [place] [address]. [place], [place] [address] [place] [address] Care Team Providers Care System Developer Associate Manager Name Role Phone Vianey Meyer EMANI Primary Care Provider [phone] Encounter Details Date Type Department Care Team (Latest Contact Info) Description 11/04/2019 Travel Social History Tobacco Use Types Packs/Day [...] ( Contact Info) Description 09/08/2024 10:10 AM COOK BOX FILLER Office Visit [facility] Medical Group Family Medicine [facility] [address] [place] [address] Samantha Sanders MD [address] [place], [place] [address] documented as of this encounter Visit Diagnoses Not on filedocumented in this encounter Additional Health Concerns Assessment Noted Time PHQ-9 Depression Total Score: 7 01/18/20 19 12:34 PM CDT documented as of this encounter Care Teams System Developer Associate Manager Relationship Specialty Start Date End Date Vianey Meyer FNP [address] [place] [address] PCP - General Nurse Practitioner Family 06/21/1805/22/21 documented as of this encounter
--- OUTSIDE RECORDS SUMMARY | 2024-07-24 00:50 | XMS_ITS | Encounter Summary ---
Author Organization [facility] Address [address] [place] [address]. [place], [place] [address] [place], [place] [id number] Care Team Providers Care Hardwood Floor Refinisher Name Role Phone Vianey Meyer Primary Care Provider [phone] Reason for Visit * Reason Onset Date Comments Refill Request 10/15/2018 Encounter Details Date Type Department Care Team (Late st Contact Info) Description 10/15/2018 Telephone [facility] Family & Internal Medicine [address] [place] [address] Vianey Meyer FNP [facility] [address] [place] [address] Refill Request Social History Tobacco [...] Progress Notes * Alyssia Smith RN - 10/15/2018 2:49 PM CDT Patient requesting adderal refill. Vianey ok with refill if patient due, she is due and 3 rx's printed. documented in this encounter Plan of Treatment Upcoming Encounters Date Type Department Care Team (Late st Contact Info) Description 09/08/2024 10:10 AM SENIOR LEAD PROJECT MANAGER Office Visit [facility] Family Medicine - [place] [address] [place] [address] Samantha Sanders MD [address] [place] [address] documented as of this encounter Visit Diagnoses Diagnosis Attention deficit disorder, unspecified hyperactivity presence documented in this encounter Care Teams Hardwood Floor Refinisher Relationship Specialty Start Date End Date Vianey Meyer FNP [address] [place] [address] PCP - General Nurse Practitioner Family 06/21/1805/22/21 documented as of this encounter
--- OUTSIDE RECORDS SUMMARY | 2024-07-24 00:50 | XMS_ITS | Encounter Summary ---
Author Organization [facility] Address [address] [place] [address]. [place], [place] [id number] [place], [place] [id number] Care Team Providers Care Shorts Sifter Name Role Phone Vianey Meyer Primary Care Provider [phone] Reason for Visit * Reason Onset Date Comments Medication Information 11/25/2018 Encounter Details Date Type Department Care Team (Late st Contact Info) Description 11/25/2018 Telephone [facility] Family & Internal Medicine [address] [address] Vianey Meyer FNP [facility] [place] [address] Medication Information Social History Tobacco Use Types Packs/Day [...] Progress Notes * Alanna Almaguer MA - 11/25/2018 10:[address] Leyva office contacted our office because patient has been getting adderall from and [facility] using multiple pharmacies-sjs documented in this encounter Plan of Treatment Upcoming Encounters Date Type Department Care Team (Late st Contact Info) Description 09/08/2024 10:10 AM CAKE CUTTER MACHINE Office Visit [facility] Family Medicine - [place] [address] [place] [address] Samantha Sanders MD [address] [place], [place] [phone] documented as of this encounter Visit Diagnoses Not on filedocumented in this encounter Care Teams Shorts Sifter Relationship Specialty Start Date End Date Vianey Meyer FNP [address] [place] [address] [id number] PCP - General Nurse Practitioner Family 06/21/1805/22/21 documented as of this encounter
--- OUTSIDE RECORDS SUMMARY | 2024-07-24 00:50 | XMS_ITS | Encounter Summary ---
Author Organization [facility] Address [address] [place] [address]. [place], [place] [id number] [place] [address] Care Team Providers Care Osteopathic Neurologist Name Role Phone Vianey Meyer Primary Care Provider [phone] Encounter Details Date Type Department Care Team (Latest Contact Info) Description 09/03/2018 Scan HEALTH INFO [facility] Scanned, Documents Social [...] Contact Info) Description 09/08/2024 10:10 AM SENIOR GRAPHIC DESIGNER Office Visit [facility] Family Medicine - [address] [place] [phone] Samantha Sanders MD [address] [place] [phone] documented as of this encounter Visit Diagnoses Not on filedocumented in this encounter Care Teams Osteopathic Neurologist Relationship Specialty Start Date End Date Vianey Meyer FNP [address] [place] [address] PCP - General Nurse Practitioner Family 06/21/1805/22/21 documented as of this encounter
--- OUTSIDE RECORDS SUMMARY | 2024-07-24 00:50 | XMS_ITS | Encounter Summary ---
Author Organization [facility] Address [address] [place] [address]. [place], [place] [id number] [place] [address] Care Team Providers Care Us Administrative Law Judge Name Role Phone Vianey Meyer Primary Care Provider [phone] Reason for Visit * Reason Onset Date Comments Follow Up 06/21/2018 Encounter Details Date Type Department Care Team (Late st Contact Info) Description 06/21/2018 Misc Documentation [facility] Family & Internal Medicine [address] [place] [address] Vianey Meyer FNP [address] [place] [address] Follow Up Social History Tobacco Use Types Packs/Day Years Used Date Smoking Tobacco: Never Assessed Comments Unknown Sex and Gender Information Value Date Recorded Sex Assigned at Not on file Legal Sex Female 4:47 PM CDT Gender Identity Not on file Sexual Orientation Not on file documented as of this encounter Progress Notes * Angi Leahy - 06/21/2018 4:27 PM CST Insurance has been put in for this patients referral COPTER OFFICER documented in this encounter Plan of Treatment Upcoming Encounters Date Type Department Care Team (Late st Contact Info) Description 09/08/2024 10:10 AM HELICOPTER OFFICER Office Visit [facility] Family Medicine [facility] [address] [place] [phone] Samantha Sanders MD [address] [place] [address] documented as of this encounter Visit Diagnoses Not on filedocumented in this encounter Care Teams Us Administrative Law Judge Relationship Specialty Start Date End Date Vianey Meyer FNP [facility] [place] [address] PCP - General Nurse Practitioner Family 06/21/1805/22/21 documented as of this encounter
--- OUTSIDE RECORDS SUMMARY | 2024-07-24 00:50 | XMS_ITS | Encounter Summary ---
Author Organization [facility] Address [address] [place] [address]. [place], [place] [address] [place], [place] [id number] Care Team Providers Care Sales And In Home Delivery Specialist Name Role Phone Vianey Meyer Primary Care Provider [phone] Reason for Visit * Reason Onset Date Comments Medication 09/09/2018 Encounter Details Date Type Department Care Team (Late st Contact Info) Description 09/09/2018 Telephone [facility] Family & Internal Medicine [id number] [place] [address] Vianey Meyer FNP [facility] [place] [place], [place] [id number] Medication Social History Tobacco Use Types Packs/Day [...] Progress Notes * Alyssia Smith RN - 09/10/2018 8:17 AM CST Patient went to [facility] doctor on Thursday, and is to f/u in 2 weeks. Patient thankful for the last switch and notified of script. Verbalized understanding. MARKETER * EMANI Crowder - 09/09/2018 3:52 PM CST Actually the GI doctor noted that he thinks that it is from her hysterectomy. She was suppose to f/u with her [facility]. We will not be switching this medication back and forth. We discussed this at her last visit. This is her last switch, we can give her one month of vyvanse 30mg daily dsp 30 MARKETER * Mila Liu - 09/09/2018 1:00 PM CST Pt came in to office to ask the status of her lab results that she had done at [place], I have requested them on 09/09 via fax. She also said that the concerta gives her stomach pains like constipation and she thinks it might have contributed to her visit to the ER for stomach pains. She was wondering if she could try vyvanseagain because she can afford it now. She said the Aderall makes her to jittery so she needs the vyvanse because that worked the best. MARKETER documented in this encounter Plan of Treatment Upcoming Encounters Date Type Department Care Team (Late st Contact Info) Description 09/08/2024 10:10 AM TELEMARKETER Office Visit [facility] Family Medicine - [place] [address] [facility] [address] [place] [address] [phone] Samantha Sanders MD [address] [place] [address] documented as of this encounter Visit Diagnoses Diagnosis Attention deficit disorder, unspecified hyperactivity presence- Primary documented in this encounter Care Teams Sales And In Home Delivery Specialist Relationship Specialty Start Date End Date Vianey Meyer FNP [address] [place] [address] PCP - General Nurse Practitioner Family 06/21/1805/22/21 documented as of this encounter
--- OUTSIDE RECORDS SUMMARY | 2024-07-24 00:50 | XMS_ITS | Encounter Summary ---
Author Organization [facility] Address [address] [place] [address]. [place], [place] [address] [place], [place] [id number] Care Team Providers Care Ambulatory Technologist Name Role Phone Unavailable Primary Care Provider Unavailabl e Encounter Details Date Type Department Care Team (Latest Contact Info) Description 04/15/2018 Abstract [facility] Vianey Meyer FNP [address] [place], [place] [id number] Social History Tobacco Use Types Packs/Day Years Used Date Smoking Tobacco: Never Assessed Comments Unknown Sex and Gender Information Value Date Recorded Sex Assigned at Not on file Legal Sex Female 4:47 PM CDT Gender Identity Not on file Sexual Orientation Not on file documented as of this encounter Last Filed Vital Signs Vital Sign Reading Time Taken Comments Blood Pressure 120/70 04/15/2018 1:56 PM CDT Pulse 94 04/15/2018 1:56 PM CDT Temperature - - Respiratory Rate - - Oxygen Saturation - - Inhaled Oxygen Concentration - - Weight 60.3 kg (133 lb) 04/15/2018 1:56 PM CDT Height 162.6 cm (5' 4 ) 04/15/2018 1:56 PM CDT Body Mass Index 22.83 04/15/2018 1:56 PM CDT documented in this encounter Progress Notes * EMANI Crowder - 04/15/2018 1:40 PM CDT Reason For Visit New Patient Visit Chief Complaint New patient to establish care c/o situational anxiety History of Present Illness HPI Free Text: Karlie presents to the office, as a new patient, to establish primary care. She report a medical history that includes ulcerative colitis, ADD, anxiety, insomnia, vitamin d deficiency,daily smoking, , vaginal delivery. She reports that she has had some cold symptoms but they are improving and she is completing a round of antibiotics for these symptoms. Her sputum is now clear. She denies fever. She has a lot of anxiety and family stressors. She is in a custody issue with her ex- and she reports that this is a lot of her anxiety and stress. She says that she takes Adderall and Lunesta daily. She is wondering if there is something else that she can try for her insomnia and ADD and we discussed many different options. She reports that shehas been on many medications in the past that include Strattera, Adderall, and Vyvanse with no symptom relief. She denies SI or HI presently. She reports that she just had some labs done this year from her system safety engineer. She is also UTD on her pap smear and mammogram. She has a history of left breast lumpectomy. We will send to get these records from her ROLLING MACHINE TENDER to determine if there needs to be additional testing. She reports that she has not seen a GI specialist in a long time. She reports that she has a history of proctitis and ulcerative colitis. She denies any GI symptoms. She does get constipated and has had a history of a bowel obstruction. PHQ-9 Depression Questionnaire: Over the past 2 weeks, how often have you been bothered by the following problems^2 1.) Little interest or pleasure in doing things^2 Several days. 2.) Feeling down, depressed or hopeless^2 Several days. 3.) Trouble falling asleep or sleeping too much^2 Nearly every day. 4.) Feeling tired or having little energy^2 Nearly every day. 5.) Poor appetite or overeating^2 Half the days or more. 6.) Feeling bad about yourself, or that you are a failure, or have let yourself or your family down^2 Half the days or more. 7.) Trouble concentrating on things, such as reading a newspaper or watching television^2 Nearly every day. 8.) Moving or speaking so slowly that other people could have noticed, or the opposite, moving or speaking faster than usual^2 Half the days or more. 9.) Thoughts that you would be off or of hurting yourself in some way^2 Not at all. TOTAL SCORE: 17, severity of depression is moderately severe. How difficult have these problems made it for you to do your work, take care of things at home, or get along with people^2 Somewhat difficult. Review of Systems See HPI for pertinent positives. Family History Family History 1. Family history of Alzheimer's disease (V17.2) (Z82.0) 2. Family history of cardiovascular disease (V17.49) (Z82.49) 3. Family history of cerebrovascular accident (CVA) (V17.1) (Z82.3) 4. Family history of hypertension (V17.49) (Z82.49) 5. Family history of kidney disease (V18.69) (Z84.1) 6. Family history of lung disease (V19.8) (Z83.6) 7. Family history of malignant neoplasm (V16.9) (Z80.9) Social History ?? Caffeine use (V49.89) (Z78.9) ?? Change of job (V62.29) (Z56.1) ?? Consumes alcohol occasionally (V49.89) (Z78.9) ?? Divorce (V61.03) (Z63.5) ?? Does not use illicit drugs (V49.89) (Z78.9) ?? Exercises regularly ?? Recently moved ?? Smokes tobacco daily (305.1) (Z72.0) Current Meds 1. Eszopiclone 2 MG Oral Tablet; Therapy: (Recorded:15Apr2018) to Recorded Dispense: 0 Days ; #: Sufficient; Refill: 0; ORALIA = N; Record; Last Updated By: Susy Perry; 04/15/2018 1:50:05 PM 2. Spironolactone 25 MG Oral Tablet; Therapy: (Recorded:15Apr2018) to Recorded Dispense: 0 Days ; #: Sufficient; Refill: 0; ORALIA = N; Record; Last Updated By: Susy Perry; 04/15/2018 1:50:05 PM Allergies 1. No Known Drug Allergies Recorded By: Susy Perry; 04/15/2018 1:50:05 PM Vitals Recorded: 15Apr2018 01:56PM Heart Rate 94 Respiration 16 Systolic 120 Diastolic 70 O2 Saturation 98 Height 5 ft 4 in Weight 133 lb BMI Calculated 22.83 BSA Calculated 1.64 Physical Exam Constitutional General appearance: No acute distress, well appearing and well nourished. Eyes Conjunctiva and lids: No swelling, erythema or discharge. Pupils and irises: Equal, round and reactive to light. Ears, Nose, Mouth, and Throat External inspection of ears and nose: Normal. Otoscopic examination: Tympanic membranes translucent with normal light reflex. Canals patent without erythema. Oropharynx: Normal with no erythema, edema, exudate or lesions. Pulmonary Respiratory effort: No increased work of breathing or signs of respiratory distress. Auscultation of lungs: Clear to auscultation. Cardiovascular Auscultation of heart: Normal rate and rhythm, normal S1 and S2, without murmurs. Examination of extremities for edema and/or varicosities: Normal. Carotid pulses: 2+ bilaterally. Abdominal aorta: Normal. Abdomen Abdomen: Non-tender, no masses. Liver and spleen: No hepatomegaly or splenomegaly. Lymphatic Palpation of lymph nodes in neck: No lymphadenopathy. Musculoskeletal Gait and station: Normal. Digits and nails: Normal without clubbing or cyanosis. Inspection/palpation of joints, bones, and muscles: Normal. Skin Skin and subcutaneous tissue: Normal without rashes or lesions. Neurologic Cranial nerves: Cranial nerves 2-12 intact. Reflexes: 2+ and symmetric. Sensation: No sensory loss. Psychiatric Orientation to person, place, and time: Normal. Mood and affect: Abnormal. Mood and Affect: appropriate affect, anxious and concerned. Counseling The patient was counseled regarding instructions for management, risk factor reductions, prognosis,patient and family education, impressions, risks and benefits of treatment options and importance of compliance with treatment. total time of encounter was 45 minutes and 30 minutes was spent counseling. Assessment 1. Smokes tobacco daily (305.1) (Z72.0) 2. Consumes alcohol occasionally (V49.89) (Z78.9) 3. Does not use illicit drugs (V49.89) (Z78.9) 4. Caffeine use (V49.89) (Z78.9) 5. Exercises regularly 6. Divorce (V61.03) (Z63.5) 7. Recently moved 8. Change of job (V62.29) (Z56.1) 9. Family history of hypertension (V17.49) (Z82.49) : Family History 10. Family history of cardiovascular disease (V17.49) (Z82.49) : Family History 11. Family history of cerebrovascular accident (CVA) (V17.1) (Z82.3) : Family History 12. Family history of lung disease (V19.8) (Z83.6) : Family History 13. Family history of kidney disease (V18.69) (Z84.1) : Family History 14. Family history of malignant neoplasm (V16.9) (Z80.9) : Family History 15. Family history of Alzheimer's disease (V17.2) (Z82.0) : Family History 16. ADD (attention deficit disorder) (314.00) (F98.8) 17. Acne (706.1) (L70.9) 18. Insomnia (780.52) (G47.00) 19. Generalized anxiety disorder (300.02) (F41.1) 20. Ulcerative colitis (556.9) (K51.90) 21. Vitamin D deficiency (268.9) (E55.9) 22. Fatigue (780.79) (R53.83) 23. Body mass index (BMI) 22.0-22.9, adult (V85.1) (Z68.22) Plan Acne 1. Spironolactone 50 MG Oral Tablet; TAKE 1 TABLET DAILY Rx By: Vianey Meyer; Dispense: 30 Days ; #:30 Tablet; Refill: 6; For: Acne; ORALIA = N; Verified Transmission to [facility] [id number]; Last Updated By: Charbel Nguyễn; 04/15/2018 2:39:29 PM ADD (attention deficit disorder) 2. Methylphenidate HCl ER 18 MG Oral Tablet Extended Release 24 Hour; Take 1 tablet daily Rx By: Vianey Meyer; Dispense: 30 Days ; #:30 Tablet; Refill: 0; For: ADD (attention deficit disorder); ORALIA = N; Print Rx Generalized anxiety disorder 3. Avoid foods and beverages that contain caffeine.; Status:Complete; Done: 18Apr2018 10:10PM Ordered; For:Generalized anxiety disorder; Ordered By:Vianey Meyer; 4. Call if: New symptoms occur.; Status:Complete; Done: 18Apr2018 10:10PM Ordered; For:Generalized anxiety disorder; Ordered By:Vianey Meyer; 5. Be sure to get at least 8 hours of sleep every night.; Status:Complete; Done: 18Apr2018 10:10PM Ordered; For:Generalized anxiety disorder; Ordered By:Vianey Meyer; 6. Call if: The symptoms seem worse.; Status:Complete; Done: [id number] 10:10PM Ordered; For:Generalized anxiety disorder; Ordered By:Vianey Meyer; 7. Decreasing the stress in your life may help your condition improve.; Status:Complete; Done: 18Apr2018 10:10PM Ordered; For:Generalized anxiety disorder; Ordered By:Vianey Meyer; 8. Call if: You are having difficulty sleeping (insomnia).; Status:Complete; Done: 18Apr2018 10:10PM Ordered; For:Generalized anxiety disorder; Ordered By:Vianey Meyer; 9. Regular aerobic exercise can help reduce stress.; Status:Complete; Done: 18Apr2018 10:10PM Ordered; For:Generalized anxiety disorder; Ordered By:Vianey Meyer; 10. Call if: Your feelings of anxiety are not getting better in 2 weeks.; Status:Complete; Done: 18Apr2018 10:10PM Ordered; For:Generalized anxiety disorder; Ordered By:Vianey Meyer; 11. There are many things you can do to help control and end a panic attack.; Status:Complete; Done: 18Apr2018 10:10PM Ordered; For:Generalized anxiety disorder; Ordered By:Vianey Meyer; 12. Call if: Your feelings of being frightened, nervous, anxious, and out of control are happening more often.; Status:Complete; Done: 18Apr2018 10:10PM Ordered; For:Generalized anxiety disorder; Ordered By:Vianey Meyer; 13. You need to stop smoking. Though it is not easy, more than half of all adult smokers have quit. We encourage you to write down all the reasons you should quit smoking and set a quit date for yourself. Ask us how we can help. You may also call 9-447-JVDANOW for free resources and assistance.; Status:Complete; Done: 18Apr2018 10:10PM Ordered; For:Generalized anxiety disorder; Ordered By:Vianey Meyer; 14. Call 911 if: You are considering suicide.; Status:Complete; Done: 18Apr2018 10:10PM Ordered; For:Generalized anxiety disorder; Ordered By:Vianey Meyer; 15. Call 911 if: You are thinking about harming yourself or someone else.; Status:Complete; Done: 18Apr2018 10:10PM Ordered; For:Generalized anxiety disorder; Ordered By:Vianey Meyer; 16. Seek Immediate Medical Attention if: ; Status:Complete; Done: 18Apr2018 10:10PM Ordered; For:Generalized anxiety disorder; Ordered By:Vianey Meyer; 17. Seek Immediate Medical Attention if: You feel your heart is beating very fast or skipping beats.; Status:Complete; Done: 18Apr2018 10:10PM Ordered; For:Generalized anxiety disorder; Ordered By:Vianey Meyer; Generalized anxiety disorder, Insomnia 18. Amitriptyline HCl - 10 MG Oral Tablet; TAKE 1 TABLET AT BEDTIME Rx By: Vianey Meyer; Dispense: 30 Days ; #:30 Tablet; Refill: 6; For: Generalized anxiety disorder, Insomnia; ORALIA = N; Verified Transmission to [facility] [employer] [id number]; Last Updated By: Charbel Nguyễn; 04/15/2018 2:39:32 PM Insomnia 19. Eszopiclone 2 MG Oral Tablet; TAKE 1 TABLET BY MOUTH AT BEDTIME NEEDED FOR INSOMNIA Rx By: Vianey Meyer; Dispense: 30 Days ; #:30 Tablet; Refill: 2; For: Insomnia; ORALIA = N; Print Rx 20. Schedule Follow up 4 weeks Outpatient Follow-up Status: Hold For - Scheduling Requested for: 18Apr2018 Ordered; For: Insomnia; Ordered By: Vianey Meyer Performed: Due: 02May2018 21. Avoid foods and beverages that contain caffeine.; Status:Complete; Done: 18Apr2018 10:09PM Ordered; For:Insomnia; Ordered By:Vianey Meyer; 22. Call if: The symptoms seem worse.; Status:Complete; Done: [id number] 10:09PM Ordered; For:Insomnia; Ordered By:Vianey Meyer; 23. Decreasing the stress in your life may help your condition improve.; Status:Complete; Done: [id number] 10:09PM Ordered; For:Insomnia; Ordered By:Vianey Meyer; 24. Call if: You have feelings of extreme sadness and feelings of hopelessness.; Status:Complete; Done: [id number] 10:09PM Ordered; For:Insomnia; Ordered By:Vianey Meyer; 25. Do not eat anything for at least 2 hours before going to bed.; Status:Complete; Done: [id number] 10:09PM Ordered; For:Insomnia; Ordered By:Viaeny Meyer; 26. Call if: You have symptoms of anxiety.; Status:Complete; Done: [id number] 10:09PM Ordered; For:Insomnia; Ordered By:Vianey Meyer; 27. Limit your use of alcohol to 2 drinks or cans of beer a day.; Status:Complete; Done: [id number] 10:09PM Ordered; For:Insomnia; Ordered By:Vianey Meyer; 28. Call if: You still are unable to sleep through the night after 2 weeks.; Status:Complete; Done: [id number] 10:09PM Ordered; For:Insomnia; Ordered By:Vianey Meyer; 29. You need to stop smoking. Though it is not easy, more than half of all adult smokers have quit. We encourage you to write down all the reasons you should quit smoking and set a quit date for yourself. Ask us how we can help. You may also call 2-116-DSNKNOW for free resources and assistance.; Status:Complete; Done: [id number] 10:09PM Ordered; For:Insomnia; Ordered By:Vianey Meyer; Discussion/Summary Impression: tobacco smoking. Currently, the patient is not interested in quitting. There are no changes in medication management. Treatment plan includes tobacco cessation counseling. Patient discussion: discussed with the patient, 5 minute visit, greater than half of the time was spent on counseling. Suicide Risk Assessment Completed. Positive adult depression screening. Evaluation of Psychiatric State Completed.. Tobacco use screening completed. Tobacco use cessation counseling provided. Suicide risk assessment completed. Alcohol consumption screening completed. Assessment of substance use completed. PHQ-9 Completed (Score 17). Signatures Electronically signed by : Vianey Meyer CNP; Apr 18 2018 10:14PM ASSISTED LIVING HOUSEKEEPER (Author) documented in this encounter Plan of Treatment Upcoming Encounters Date Type Department Care Team (Late st Contact Info) Description 09/08/2024 10:10 AM ASSISTED LIVING HOUSEKEEPER Office Visit [facility] Family Medicine - [place] [address] [place] [phone] Samantha Sandres MD [address] [place] [address] documented as of this encounter Visit Diagnoses Not on filedocumented in this encounter
--- OUTSIDE RECORDS SUMMARY | 2024-07-24 00:50 | XMS_ITS | Encounter Summary ---
Author Organization [facility] Address [address] [place] [address]. [place], [place] [id number] [place] [address] Care Team Providers Care Strategic Marketing Leader Name Role Phone Vianey Meyer CYBER INSTRUCTOR Primary Care Provider [phone] Faith Galvez NP Primary Care Provider Charley Solorzano MD Primary Care Provider Samantha Sanders MD Primary Care Provider + Encounter Details Date Type Department Care Team (Latest Contact Info) Description 05/25/2018 Abstract [facility] Horacio Beauchamp MD Social History Tobacco Use Types Packs/Day Years [...] st Contact Info) Description 09/08/2024 10:10 AM CRYPTOGRAPHER Office Visit [facility] Family Medicine - [place] [address] [place] [address] [phone] Samantha Sanders MD [address] [place] [phone] documented as of this encounter Visit Diagnoses Not on filedocumented in this encounter Additional Health Concerns Infection Onset Date Last Indicated Resolved Time COVID-19 Rule Out 06/06/2020 06/06/2020 08/05/2020 12:33 AM CRYPTOGRAPHER COVID-19 Rule Out 05/25/2023 05/25/2023 05/25/2023 10:11 AM CRYPTOGRAPHER COVID-19 Confirmed 05/25/2023 05/25/2023 12:32 AM CRYPTOGRAPHER documented as of this encounter Care Teams Strategic Marketing Leader Relationship Specialty Start Date End Date Vianey Meyer FNP [address] [place] [phone] PCP - General Nurse Practitioner Family 06/21/1805/22/21 Faith Galvez, BLANKET MAKER [address] [place] [id number] PCP - General NURSE PRACTITIONER 05/23/21 04/20/22 [place] [address] [facility]. [address] [place] [address] PCP - General FAMILY PRACTICE 04/21/22 03/03/24 Samantha Sanders MD [address] [place] [id number] PCP - General FAMILY PRACTICE 03/07/24 documented as of this encounter
--- OUTSIDE RECORDS SUMMARY | 2024-07-24 00:50 | XMS_ITS | Encounter Summary ---
Author Organization [facility] Address [address] [place] [address]. [place], [place] [id number] [place] [phone] Care Team Providers Care Potato Inspector Name Role Phone Unavailable Primary Care Provider Unavailabl e Encounter Details Date Type Department Care Team (Latest Contact Info) Description 05/29/2016 Abstract [facility] , Horacio Crabtree MD Social History Tobacco Use Types Packs/Day [...] st Contact Info) Description 09/08/2024 10:10 AM PHONE OPERATOR Office Visit [facility] Family Medicine - [place] [address] [place] [phone] Samantha Sanders MD [address] [place] [phone] documented as of this encounter Visit Diagnoses Not on filedocumented in this encounter
--- OUTSIDE RECORDS SUMMARY | 2024-07-24 00:50 | XMS_ITS | Encounter Summary ---
Author Organization [facility] Address [address] [place] [address]. [place], [place] [id number] [place], [place] [id number] Care Team Providers Care Electrical Contractor Name Role Phone Vianey Meyer EMANI Primary Care Provider [phone] Reason for Visit * Reason Comments Colitis pain Fever highest 102.5 Encounter Details Date Type Department Care Team (Late st Contact Info) Description 08/30/2018 3:40 PM BONDING MACHINE TENDER Office Visit [facility] Family & Internal Medicine [facility] [address] [place] [address] Osbaldo Dobbins DO [address] [place] [address] Colitis (pain); Fever (highest 102.5 ) Social History Tobacco Use Types Packs/Day [...] Sign Reading Time Taken Comments Blood Pressure 108/64 08/30/2018 3:52 PM BONDING MACHINE TENDER Pulse 64 08/30/2018 3:52 PM BONDING MACHINE TENDER Temperature 36.4 ??C (97.6 ??F) 08/30/2018 3:52 PM CS T Respiratory Rate 16 08/30/2018 3:52 PM BONDING MACHINE TENDER Oxygen Saturation 98% 08/30/2018 3:52 PM BONDING MACHINE TENDER Inhaled Oxygen Concentration - - Weight 60.5 kg (133 lb 7 oz) 08/30/2018 3:52 PM BONDING MACHINE TENDER Height 162.6 cm (5' 4 ) 08/30/2018 3:52 PM BONDING MACHINE TENDER Body Mass Index 22.9 08/30/2018 3:52 PM BONDING MACHINE TENDER documented in this encounter Progress Notes * Osbaldo Dobbins, DO - 08/30/2018 3:40 PM CST Images from the original note were not included. GENERAL OFFICE VISIT Encounter Date: 08/30/2018 Chief Complaint: 43-year-old female presents for Colitis (pain) and Fever (highest 102.5 ) She was diagnosed with colitis, was told to go to ER recently because her symptoms weren't improving but didn't stay, has a hx of UC. Noted she got really hot with it and felt like she was going to pass out. Noted this was different than previous colitis episodes. Was given ciprofloxain by her PYROMETALLURGICAL ENGINEER,did not start flagyl as per recommended by her PCP. She notes she had a fever over the weekend which seemed to have resolved today. Noted some diarrhea with that initial episode as well. Other than abdominal pain no other symptoms at this time. Review of Systems Constitutional: See HPI HENT: Negative for congestion. Eyes: Negative for discharge. Respiratory: Negative for shortness of breath. Cardiovascular: Negative for chest pain. Gastrointestinal: See HPI Genitourinary: Negative for dysuria. Skin: Negative for rash. Neurological: Negative for loss of consciousness. Endo/Heme/Allergies: Does not bruise/bleed easily. Patient Active Problem List Diagnosis ??? ADD [...] ??? Highest education level: Not on file Social Needs ??? Financial resource strain: Not on file ??? Food insecurity - worry: Not on file ??? Food insecurity - inability: Not on file ??? Transportation needs - medical: Not on file ??? Transportation needs - non-medical: Not on file Occupational History ??? Not [...] Outpatient Medications Medication Sig Dispense Refill ??? buPROPion 75 MG tablet Take 1 tablet (75 mg total) by mouth 2 (two) times daily. 60 tablet 2 ??? ciprofloxacin 500 MG tablet TAKE 1 TABLET BY MOUTH TWICE DAILY FOR 10 DAYS 0 ??? Eszopiclone (LUNESTA) 3 MG Tab Take 3 mg by mouth nightly at bedtime. Take immediately before bedtime 30 tablet 2 ??? metroNIDAZOLE 500 MG tablet Take 1 tablet (500 mg total) by mouth 3 (three) times daily for 10 days. 30 tablet 0 ??? methylphenidate ER (CONCERTA) 27 MG CR tablet Take 1 tablet (27 mg total) by mouth every morning for 30 days. 30 tablet 0 No current facility-administered medications for this visit. Current Outpatient Medications on File Prior to Visit Medication Sig ??? buPROPion 75 MG tablet Take 1 tablet (75 mg total) by mouth 2 (two) times daily. ??? ciprofloxacin 500 MG tablet TAKE 1 TABLET BY MOUTH TWICE DAILY FOR 10 DAYS ??? Eszopiclone (LUNESTA) 3 MG Tab Take 3 mg by mouth nightly at bedtime. Take immediately before bedtime ??? methylphenidate ER (CONCERTA) 27 MG CR tablet Take 1 tablet (27 mg total) by mouth every morning for 30 days. No current facility-administered medications on file prior to visit. No Known Allergies Objective: Vitals: 08/30/18 1552 BP: 108/64 Pulse: 64 Resp: 16 Temp: 97.6 ??F (36.4 ??C) SpO2: 98% Physical Exam Constitutional: She is oriented to person, place, and time and well-developed, well-nourished, and in no distress. HENT: Head: Normocephalic and atraumatic. Right Ear: External ear normal. Left Ear: External ear normal. Eyes: Conjunctivae are normal. Neck: Neck supple. Cardiovascular: Normal rate, regular rhythm and normal heart sounds. Exam reveals no gallop and no friction rub. No murmur heard. Pulmonary/Chest: Effort normal and breath sounds normal. No respiratory distress. She has no wheezes. She has no rales. Abdominal: Soft. Bowel sounds are normal. She exhibits no distension and no mass. There is no rebound and no guarding. Mild tenderness to palpation in b/l LQs Musculoskeletal: She exhibits no edema. Neurological: She is alert and oriented to person, place, and time. Skin: Skin is warm and dry. No rash noted. Psychiatric: Affect normal. Nursing note and vitals reviewed. Assessment & Plan: Karlie was seen today for colitis and fever. Diagnoses and all orders for this visit: Colitis - metroNIDAZOLE 500 MG tablet; Take 1 tablet (500 mg total) by mouth 3 (three) times daily for 10 days. Discussion/Summary: Will start on Flagyl at this time. Encouraged her to obtain labs that we are reordered. Follow-up with GI as scheduled later this week. Follow-up with regular PCP for this. Osbaldo Dobbins DO ING MACHINE TENDER documented in this encounter Plan of Treatment Upcoming Encounters Date Type Department Care Team (Late st Contact Info) Description 09/08/2024 10:10 AM BONDING MACHINE TENDER Office Visit [facility] Family Medicine - [place] [address] [address] Samantha Sanders MD [address] [place] [address] documented as of this encounter Visit Diagnoses Diagnosis Colitis- Primary Other and unspecified noninfectious gastroenteritis and colitis documented in this encounter Care Teams Electrical Contractor Relationship Specialty Start Date End Date Vianey Meyer FNP [address] [place] [address] PCP - General Nurse Practitioner Family 06/21/1805/22/21 documented as of this encounter
--- OUTSIDE RECORDS SUMMARY | 2024-07-24 00:50 | XMS_ITS | Encounter Summary ---
Author Organization [facility] Address [address] [place] [address]. [place], [place] [address] [place] [address] Care Team Providers Care Area Field Person Name Role Phone Unavailable Primary Care Provider Unavailabl e Encounter Details Date Type Department Care Team (Late st Contact Info) Description 05/05/2018 Abstract [facility] Family & Internal Medicine [place] [id number] [place] [address] Vianey Meyer FNP [address] [place] [address] Social History Tobacco Use Types Packs/Day Years [...] st Contact Info) Description 09/08/2024 10:10 AM VP DIGITAL MARKETING Office Visit [facility] Family Medicine [facility] [address] [place] [address] Samantha Sanders MD [address] [place] [address] documented as of this encounter Visit Diagnoses Not on filedocumented in this encounter
--- OUTSIDE RECORDS SUMMARY | 2024-07-24 00:50 | XMS_ITS | Encounter Summary ---
Author Organization [facility] Address [address] [place] [address]. [place], [place] [address] [place] [address] Care Team Providers Care Dramatic Reader Name Role Phone Vianey Meyer BARREL DRILLER Primary Care Provider [phone] Reason for Visit * Reason Comments Lab (SCAN) DRUG MONITOR, PANEL 5, SCREEN, URINE, CREATININE, PH, OXIDANT Encounter Details Date Type Department Care Team (Late Contact Info) Description 11/17/2018 Scan HEALTH INFO SRVCS Scanned, Documents Lab (SCAN) (DRUG MONITOR, PANEL 5, SCREEN, URINE, CREATININE, PH, OXIDANT) Social History Tobacco Use Types Packs/Day Years [...] Upcoming Encounters Date Type Department Care Team ([facility] Contact Info) Description 09/08/2024 10:10 AM SLEEP TECHNICIAN Office Visit [facility] Family Medicine - [place] [address] [place] [phone] Samantha Sanders MD [address] [place] [address] documented as of this encounter Procedures Procedure Name Priority Date/Time Associated Diagnosis Comments OUTSIDE LAB (SCAN ORDER) Routine 11/17/2018 documented in this encounter Results * OUTSIDE LAB (11/17/2018) 11/17/2018 us Documents Scanned SCANNING Final Result documented in this encounter Visit Diagnoses Not on filedocumented in this encounter Care Teams Dramatic Reader Relationship Specialty Start Date End Date Vianey Meyer FNP [address] [place] [address] PCP - General Nurse Practitioner Family 06/21/1805/22/21 documented as of this encounter
--- OUTSIDE RECORDS SUMMARY | 2024-07-24 00:50 | XMS_ITS | Encounter Summary ---
Author Organization [facility] Address [address] [place] [address]. [place], [place] [address] [place], [place] [phone] Care Team Providers Care Nurses Medical Assistants Phlebotomists Name Role Phone Suzie Coulter Primary Care Provider [phone] Reason for Visit * Reason Onset Date Comments Refill Request 05/09/2019 Encounter Details Date Type Department Care Team (Late st Contact Info) Description 05/09/2019 Telephone [facility] Family & Internal Medicine [address] [address] Suzie Coulter FNP [facility] [place], [place] [phone] Refill Request Social History Tobacco Use Types [...] Progress Notes * Alanna Almaguer MA - 05/09/2019 9:37 AM CDT The patient is calling for a refill on:adderall Last visit with SUZIE COULTER in FAMILY PRACTICE was on: 01/17/2019 in [facility] No future appointments. [facility] - [place], [place] - [address] [facility] [address] [facility] [phone] [facility]/pharmacy #[id number] - [place], [place] - [address] [facility] [address] [facility] [address] Current Outpatient Medications: ??? amphetamine-dextroamphetamine (ADDERALL) 10 MG tablet, Take 2 tablets (20 mg total) by mouth 2 (two) times daily., Disp: 120 tablet, Rfl: 0 ??? azelastine 0.1 % nasal spray, 1 spray by [...] 50 MG tablet, , Disp: , Rfl: documented in this encounter Plan of Treatment Upcoming Encounters Date Type Department Care Team (Late st Contact Info) Description 09/08/2024 10:10 AM FARM EQUIPMENT TECHNICIAN Office Visit [facility] Family Medicine - [place] [address] [place] [phone] Samantha Sanders MD [address] [place] [address] documented as of this encounter Visit Diagnoses Diagnosis Attention deficit disorder, unspecified hyperactivity presence documented in this encounter Additional Health Concerns Assessment Noted Time PHQ-9 Depression Total Score: 7 01/18/20 19 12:34 PM CDT documented as of this encounter Care Teams Nurses Medical Assistants Phlebotomists Relationship Specialty Start Date End Date Suzie Coulter FNP [address] [place] [address] PCP - General Nurse Practitioner Family 06/21/1805/22/21 documented as of this encounter
--- OUTSIDE RECORDS SUMMARY | 2024-07-24 00:50 | XMS_ITS | Encounter Summary ---
Author Organization [facility] Address [address] [place] [address]. [place] [phone] Care Team Providers Care Vp Director Of Creative Strategy Name Role Phone Vianey Meyer Primary Care Provider [phone] Reason for Visit * Reason Onset Date Comments Follow Up Call 08/27/2018 Encounter Details Date Type Department Care Team (Late st Contact Info) Description 08/27/2018 Telephone [facility] Medical Group Family & Internal Medicine [place] [address] [place] [address] Vianey Meyer FNP [facility] [place] [address] Follow Up Call Social History [...] as of this encounter Progress Notes * Claudia Singer MA - 08/27/2018 4:15 PM CST Patient informed, she asked me to [facility], this is done UATE TEACHING ASSISTANT * EMANI Crowder - 08/27/2018 11:54 AM CST Noted. Do we need to call her back? UATE TEACHING ASSISTANT * Alyssia Smith RN - 08/27/2018 11:44 AM CST Unable to leave message, did put in orders for labs though. 08/27/18 UATE TEACHING ASSISTANT * EMANI Crowder - 08/27/2018 9:40 AM CST Cbc, cmp, amylase and lipase Does she have an appointment or needs an urgent referral? UATE TEACHING ASSISTANT * Angi Leahy - 08/27/2018 7:38 AM CST Pt had flare up of UC and was in hospital, she has appt to re-establish with her GI on 09/01 with Lizzie at [facility] Asking if you feel she needs labs in the meantime. She has still been running a low grade fever, around 100 along with having some pain in rectal area and thinks she may have a fissure or hemorrhoid UATE TEACHING ASSISTANT documented in this encounter Plan of Treatment Upcoming Encounters Date Type Department Care Team (Late st Contact Info) Description 09/08/2024 10:10 AM GRADUATE TEACHING ASSISTANT Office Visit [facility] Family Medicine - [place] [address] [place] [address] Samantha Sanders MD [address] [place] [address] documented as of this encounter Visit Diagnoses Diagnosis Ulcerative colitis ([facility])- Primary Ulcerative colitis, unspecified Fever Fever, unspecified documented in this encounter Care Teams Vp Director Of Creative Strategy Relationship Specialty Start Date End Date Vianey Meyer FNP [address] [place] [address] PCP - General Nurse Practitioner Family 06/21/1805/22/21 documented as of this encounter
--- OUTSIDE RECORDS SUMMARY | 2024-07-24 00:50 | XMS_ITS | Encounter Summary ---
Author Organization [facility] Address [address] [place] [address]. [place] [phone] Care Team Providers Care Extension Supervisor Name Role Phone Alesia Meyer Primary Care Provider [phone] Reason for Visit * Reason Onset Date Comments Results 09/10/2018 Encounter Details Date Type Department Care Team (Late st Contact Info) Description 09/10/2018 Telephone [facility] Family & Internal Medicine [place] [address] [place] [address] Alesia Meyer FNP [facility] [place] [address] Results Social History Tobacco Use Types Packs/Day [...] as of this encounter Progress Notes * Ashley Easley CMA - 09/10/2018 4:11 PM CST Pt informed about lab pt will repeat CBC two days prior to appointment with alesia OFF WORKER documented in this encounter Plan of Treatment Upcoming Encounters Date Type Department Care Team (Late st Contact Info) Description 09/08/2024 10:10 AM CUT OFF WORKER Office Visit [facility] Family Medicine - [place] [address] [facility] [address] [place] [address] Samantha Sanders MD [address] [place] [address] documented as of this encounter Visit Diagnoses Diagnosis Elevated WBC count- Primary Leukocytosis, unspecified documented in this encounter Care Teams Extension Supervisor Relationship Specialty Start Date End Date Alesia Meyer FNP [address] [place] [address] PCP - General Nurse Practitioner Family 06/21/1805/22/21 documented as of this encounter
--- OUTSIDE RECORDS SUMMARY | 2024-07-24 00:50 | XMS_ITS | Encounter Summary ---
Author Organization [facility] Address [address] [place] [address]. [place] [address] Care Team Providers Care Pharm Spec Name Role Phone Vianey Meyer EMANI Primary Care Provider [phone] Reason for Visit * Reason Comments Ear Pressure Bilateral ear Fatigue Headache x 5 days Encounter Details Date Type Department Care Team (Late st Contact Info) Description 03/30/2019 11:40 AM CDT Office Visit [facility] Family & Internal Medicine [facility] [address] [place] [address] Osbaldo Dobbins, [address] [place] [address] Ear Pressure (Bilateral ear); Fatigue; Headache (x 5 days ) Social History Tobacco Use Types Packs/Day [...] Sign Reading Time Taken Comments Blood Pressure 100/60 03/30/2019 12:03 PM CDT Pulse 89 03/30/2019 12:03 PM CDT Temperature 37.1 ??C (98.7 ??F) 03/30/2019 12:03 PM C DT Respiratory Rate 16 03/30/2019 12:03 PM CDT Oxygen Saturation 98% 03/30/2019 12:03 PM CDT Inhaled Oxygen Concentration - - Weight 60.4 kg (133 lb 4 oz) 03/30/2019 12:03 PM CDT Height 152.4 cm (5') 03/30/2019 12:03 PM CDT Body Mass Index 26.02 03/30/2019 12:03 PM CDT documented in this encounter Progress Notes * Osbaldotiffany Dobbins, DO - 03/30/2019 11:40 AM CDT GENERAL OFFICE VISIT Encounter Date: 03/30/2019 Chief Complaint: 44-year-old female presents for Ear Pressure (Bilateral ear); Fatigue; and Headache (x 5 days ) . HPI: Patient states symptoms have been present for 5 days. Symptoms include bilateral ear pain, sore throat, mildly productive cough, and sinus problems. She felt feverish, but did not take her temperature. She took some aleve to help with this. Pertinent negatives include N/V, Fevers, Chills, SOB, Conjunctivitis and Myalgias. Patient has Sick contacts. OTC medications tried include aleve. She is out of her nasal sprays. Seems to be getting worse. Pt also needs a refill of her insomnia medication. Review of Systems Constitutional: Negative for chills and fever. HENT: See HPI Eyes: Negative for discharge. Respiratory: See HPI Cardiovascular: Negative for chest pain. Gastrointestinal: Negative for abdominal pain, nausea and vomiting. Musculoskeletal: Negative for myalgias. Skin: Negative for rash. Patient Active Problem List Diagnosis ??? ADD [...] file Gets together: Not on file Attends methodist service: Not on file Active member of [...] Outpatient Medications Medication Sig Dispense Refill ??? amoxicillin-clavulanate (AUGMENTIN) 875-125 MG tablet Take 1 tablet (875 mg total) by mouth 2 (two) times daily for 10 days. 20 tablet 0 ??? azelastine 0.1 % nasal spray 1 spray by Nasal route 2 (two) times daily. Use in each nostril asdirected 30 mL 0 ??? buPROPion 75 MG tablet Take [...] immediately before bedtime 30 tablet 2 ??? trazodone 50 MG tablet ??? amphetamine-dextroamphetamine (ADDERALL) 10 MG tablet Take 2 tablets (20 mg total) by mouth 2 (two) times daily. 120 tablet 0 No current facility-administered medications for [...] 10 mg by mouth as needed. ??? trazodone 50 MG tablet No current facility-administered medications on file prior to visit. No Known Allergies Objective: Filed Vitals: 03/30/19 1203 BP: 100/60 Pulse: 89 Resp: 16 Temp: 98.7 ??F (37.1 ??C) SpO2: 98% Weight: 60.4 kg (133 lb 4 oz) Height: 5' (1.524 m) Physical Exam Constitutional: She is oriented to person, place, and time and well-developed, well-nourished, and in no distress. HENT: Head: Normocephalic and atraumatic. Right Ear: Tympanic membrane, external ear and ear canal normal. Left Ear: Tympanic membrane, external ear and ear canal normal. Nose: Nose normal. Mouth/Throat: Oropharynx is clear and moist. No oropharyngeal exudate. Eyes: Conjunctivae are normal. Neck: Neck supple. Cardiovascular: Normal rate, regular rhythm and normal heart sounds. Exam reveals no gallop and no friction rub. No murmur heard. Pulmonary/Chest: Effort normal and breath sounds normal. No respiratory distress. She has no wheezes. She has no rales. Abdominal: Soft. Bowel sounds are normal. There is no tenderness. Musculoskeletal: She exhibits no edema. Lymphadenopathy: She has no cervical adenopathy. Neurological: She is alert and oriented to person, place, and time. Skin: Skin is warm and dry. No rash noted. Psychiatric: Affect normal. Nursing note and vitals reviewed. Assessment & Plan: Karlie was seen today for ear pressure, fatigue and headache. Diagnoses and all orders for this visit: Acute non-recurrent maxillary sinusitis - amoxicillin-clavulanate (AUGMENTIN) 875-125 MG tablet; Take 1 tablet (875 mg total) by mouth 2 (two) times daily for 10 days. - azelastine 0.1 % nasal spray; 1 spray by Nasal route 2 (two) times daily. Use in each nostril as directed Insomnia due to other mental disorder - Eszopiclone (LUNESTA) 3 MG Tab; Take 3 mg by mouth nightly at bedtime. Take immediately before bedtime Other orders - Cancel: Joint Aspiration/Injection Discussion/Summary: Will treat as per above; conservative measures discussed as well. Will refill lunesta as well. F/u as needed for this condition. Joint aspiration order entered in error. Pt v/u. Osbaldo Dobbins DO documented in this encounter Plan of Treatment Upcoming Encounters Date Type Department Care Team (Late st Contact Info) Description 09/08/2024 10:10 AM INTERNAL COMMUNICATIONS SPECIALIST Office Visit [facility] Family Medicine - [place] [address] [place] [address] Samantha Sanders MD [address] [place] [address] documented as of this encounter Visit Diagnoses Diagnosis Acute non-recurrent maxillary sinusitis- Primary Insomnia due to other mental disorder documented in this encounter Additional Health Concerns Assessment Noted Time PHQ-9 Depression Total Score: 7 01/18/20 19 12:34 PM CDT documented as of this encounter Care Teams Pharm Spec Relationship Specialty Start Date End Date Vianey Meyer FNP [address] [place] [address] PCP - General Nurse Practitioner Family 06/21/1805/22/21 documented as of this encounter
--- OUTSIDE RECORDS SUMMARY | 2024-07-24 00:50 | XMS_ITS | Encounter Summary ---
Author Organization [facility] Address [address] [place] [address]. [place], [place] [address] [place] [address] Care Team Providers Care Mate Fourth Name Role Phone Vianey Meyer Primary Care Provider Encounter Details Date Type Department Care Team (Latest Contact Info) Description 11/17/2018 Scan HEALTH INFO SRVCS Scanned, Documents Social [...] st Contact Info) Description 09/08/2024 10:10 AM GOLD RECLAIMER Office Visit [facility] Family Medicine - [place] [address] [place] [phone] Samantha Sanders MD [address] [place] [phone] documented as of this encounter Visit Diagnoses Not on filedocumented in this encounter Care Teams Mate Fourth Relationship Specialty Start Date End Date Vianey Meyer FNP [address] [place] [address] PCP - General Nurse Practitioner Family 06/21/1805/22/21 documented as of this encounter
--- OUTSIDE RECORDS SUMMARY | 2024-07-24 00:50 | XMS_ITS | Encounter Summary ---
Author Organization [facility] Address [address] [place] [address]. [place] [address] Care Team Providers Care Geomagnetist Name Role Phone Vianey Meyer Primary Care Provider [phone] Reason for Visit * Reason Comments Depression Attention Deficit Disorder Encounter Details Date Type Department Care Team (Late st Contact Info) Description 09/16/2018 1:00 PM POCKET STITCHER Office Visit [facility] Family & Internal Medicine [address] [phone] Vianey Meyer FNP [facility] [place], [place] [id number] Depression; Attention Deficit Disorder Social History Tobacco Use Types Packs/Day Years [...] Sign Reading Time Taken Comments Blood Pressure 100/64 09/16/2018 1:23 PM POCKET STITCHER Pulse 105 09/16/2018 1:23 PM POCKET STITCHER Temperature - - Respiratory Rate 16 09/16/2018 1:23 PM POCKET STITCHER Oxygen Saturation 98% 09/16/2018 1:23 PM POCKET STITCHER Inhaled Oxygen Concentration - - Weight 58.5 kg (129 lb) 09/16/2018 1:23 PM POCKET STITCHER Height 162.6 cm (5' 4 ) 09/16/2018 1:23 PM POCKET STITCHER Body Mass Index 22.14 09/16/2018 1:23 PM POCKET STITCHER documented in this encounter Patient Instructions * Patient Instructions* EMANI Crowder - 09/16/2018 1:00 PM POCKET STITCHER Take your medications as directed and prescribed Call or return for any questions or concerns Follow up in one month for a recheck of your ADD and medication plan. ET STITCHER documented in this encounter Progress Notes * EMANI Crowder - 09/16/2018 1:00 PM CST Office Progress Note Reason for Visit: Depression and Attention Deficit Disorder History of Present Illness: Karlie presents to the office for a f/u of her chronic conditions. She reports that Vyvanse was denied by her insurance. She was only given 7 days worth and she brought her bottle in for verification. She reports that she knows that the Adderall worked the best and she was thinking about going backon it. She just recently had Colitis and was treated for this and also a couple days ago was treated for infuenza type A. She is still taking Tamiflu. She reports that she is feeling better and her symptomshave decreased. She reports that the Wellbutrin is working well for her depressive symptoms. She denies SI or HI presently. She did have STD testing due to her abdominal symptoms and her previous relationship. ROS: Review of Systems Constitutional: Positive for malaise/fatigue. Negative for chills, fever and weight loss. HENT: Negative for congestion, ear discharge, ear pain, hearing loss, nosebleeds, sinus pain, sore throat and tinnitus. Eyes: Negative for blurred vision. Respiratory: Positive for cough and sputum production. Negative for hemoptysis, shortness of breathand wheezing. Cardiovascular: Negative for chest pain, palpitations and leg swelling. Gastrointestinal: Negative for abdominal pain, blood in stool, constipation, diarrhea, heartburn, nausea and vomiting. Genitourinary: Negative for dysuria, flank pain, frequency, hematuria and urgency. Musculoskeletal: Negative for falls, joint pain and myalgias. Neurological: Negative for dizziness, weakness and headaches. Psychiatric/Behavioral: Negative for depression, substance abuse and suicidal ideas. The patient isnot nervous/anxious and does not have insomnia. Medications: [...] nightly at bedtime. Take immediately before bedtime No current facility-administered medications on file prior [...] well-developed and well-nourished. She is cooperative. She appears ill. No distress. HENT: Head: Normocephalic and atraumatic. Right Ear: Hearing, tympanic membrane, external ear and ear canal normal. Left Ear: Hearing, tympanic membrane, external ear and ear canal normal. Nose: Nose normal. Mouth/Throat: Uvula is midline, oropharynx is clear and moist and mucous membranes are normal. Eyes: Conjunctivae, EOM and lids are normal. Pupils are equal, round, and reactive to light. Neck: Trachea normal, normal range of motion and full passive range of motion without pain. Neck supple. Normal carotid pulses present. No tracheal tenderness present. Carotid bruit is not present. No tracheal deviation present. No thyroid mass [...] bowel sounds are normal. She exhibits no distension and no mass. There is no hepatosplenomegaly. There is no tenderness. There is no rebound, no guarding and noCVA tenderness. Musculoskeletal: Normal range of motion. She exhibits no tenderness or deformity. Lymphadenopathy: She has cervical adenopathy. Right cervical: Superficial cervical adenopathy present. Left cervical: Superficial cervical adenopathy present. Neurological: She is alert and oriented to person, place, and time. She has normal strength and normal reflexes. No cranial nerve deficit or sensory deficit. Coordination and gait normal. Skin: Skin is warm, dry and intact. No rash noted. She is not diaphoretic. No erythema. Psychiatric: She has a normal mood and affect. Her speech is normal and behavior is normal. Judgment and thought content normal. Cognition and memory are normal. Nursing note and vitals reviewed. Filed Vitals: 09/16/18 1323 BP: 100/64 Pulse: 105 Resp: 16 SpO2: 98% Weight: 58.5 kg (129 lb) Height: 5' 4 (1.626 m) Diagnoses/Impression: 1. Attention deficit disorder, unspecified hyperactivity presence amphetamine- dextroamphetamine XR (ADDERALL XR) 30 MG 24 hr capsule Recommendations and Plan: 1. Attention deficit disorder, unspecified hyperactivity presence - amphetamine-dextroamphetamine XR (ADDERALL XR) 30 MG 24 hr capsule; Take 1 capsule (30 mg total) by mouth every morning for 30 days. Dispense: 30 capsule; Refill: 0 Orders Placed This Encounter ??? amphetamine-dextroamphetamine XR (ADDERALL XR) 30 MG 24 hr capsule Cannot display discharge medications since this is not an admission. PCP: EMANI KILGORE 09/16/2018 ET STITCHER documented in this encounter Plan of Treatment Upcoming Encounters Date Type Department Care Team (Late st Contact Info) Description 09/08/2024 10:10 AM POCKET STITCHER Office Visit [facility] Family Medicine - [place] [address] [facility] [address] [place] [address] Samantha Sanders MD [address] [place] [address] documented as of this encounter Visit Diagnoses Diagnosis Attention deficit disorder, unspecified hyperactivity presence- Primary documented in this encounter Care Teams Geomagnetist Relationship Specialty Start Date End Date Vianey Meyer FNP [address] [place] [address] PCP - General Nurse Practitioner Family 06/21/1805/22/21 documented as of this encounter
--- OUTSIDE RECORDS SUMMARY | 2024-07-24 00:50 | XMS_ITS | Encounter Summary ---
Author Organization [facility] Address [address] [place] [address]. [place] [id number] [place], [place] [id number] Care Team Providers Care District Agent Name Role Phone Vianey Meyer Primary Care Provider [phone] Reason for Visit * Reason Onset Date Comments Prior Authorization 04/01/2019 adderall Encounter Details Date Type Department Care Team (Late st Contact Info) Description 04/01/2019 Telephone [facility] Family & Internal Medicine [facility] [address] [place] [address] Vianey Meyer FNP [address] [place] [address] Prior Authorization (adderall) Social History Tobacco Use Types Packs/Day Years [...] Progress Notes * Alanna Almaguer MA - 04/06/2019 2:40 PM CDT rx pended for approval * EMANI Crowder - 04/01/2019 3:37 PM CDT We can set it up for 10mg 90 tablets for 30 days * Alyssia Smith RN - 04/01/2019 1:49 PM CDT PA for adderall was denied. Request was reviewed and determined that it does not meet coverage criteria. The request for more than 90 tabs per 30 day supply of the adderall exceeds quantity limit guidelines. Per guidelines, 10mg tabs are covered for up to 90 tabs per 30 days and the 20mg is coveredfor up to 60 tabs per 30 days. Please advise. documented in this encounter Plan of Treatment Upcoming Encounters Date Type Department Care Team (Late st Contact Info) Description 09/08/2024 10:10 AM SHEETFED PRESS OPERATOR Office Visit [facility] Family Medicine [facility] [address] [facility] [address] [place] [address] Samantha Sanders MD [address] [place] [address] documented as of this encounter Visit Diagnoses Diagnosis Attention deficit disorder, unspecified hyperactivity presence- Primary documented in this encounter Additional Health Concerns Assessment Noted Time PHQ-9 Depression Total Score: 7 01/18/20 19 12:34 PM CDT documented as of this encounter Care Teams District Agent Relationship Specialty Start Date End Date Vianey Meyer FNP [address] [place] [address] PCP - General Nurse Practitioner Family 06/21/1805/22/21 documented as of this encounter
--- OUTSIDE RECORDS SUMMARY | 2024-07-24 00:50 | XMS_ITS | Encounter Summary ---
Author Organization [facility] Address [address] [place] [address]. [place], [place] [address] [place], [place] [phone] Care Team Providers Care Can Solderer Name Role Phone Unavailable Primary Care Provider Unavailabl e Encounter Details Date Type Department Care Team (Latest Contact Info) Description 04/22/2018 Abstract [facility] , Generic ConversionMD Social History Tobacco Use Types Packs/Day Years Used Date Smoking Tobacco: Never Assessed Comments Unknown Sex and Gender Information Value Date Recorded Sex Assigned at Not on file Legal Sex Female 4:47 PM CDT Gender Identity Not on file Sexual Orientation Not on file documented as of this encounter Progress Notes * Generic Conversion MD Nito - 04/22/2018 3:13 PM CDT Message Recorded as Task Date: 04/20/2018 10:18 AM, Created By: Angi Leahy Task Name: Medical Complaint Callback Assigned To: [facility] Nurse Team Regarding Patient: Karlie Ivory, Status: Active Comment: Angi Leahy - 20 Apr 2018 10:18 AM TASK CREATED Caller: Self; Medical Complaint; pt started methylphenidate last week, states it is helping concentration but she is experiencing increased fatigue. Asking if there is something else that she can try or add to alleviate this^2 Vianey Reyes - 20 Apr 2018 10:55 AM TASK REPLIED TO: Previously Assigned To [facility] Nurse Team we can increase her dose and see if this helps^2 we can increase it to 36mg daily. I would not add any new medications. Is she sleeping better^2 Arti Perry 20 Apr 2018 2:45 PM TASK IN PROGRESS Arti Perry 20 Apr 2018 2:49 PM TASK REPLIED TO: Previously Assigned To [facility] Nurse Team patient states that she has already taken 2 tablets (36mg) daily for the last two days and is stillfeeling increased fatigue. patient states that she is sleeping better at night. Vianey Meyer 21 Apr 2018 11:56 AM TASK EDITED we can stop the concerta and try Provigil 100mg daily and see if this helps. We also should think about getting a sleep study on her. She should f/u 2 weeks after starting the Provigil, so we can seeif we need any adjustments in her medication. Arti Perry 21 Apr 2018 12:28 PM TASK EDITED new rx sent to pharmacy. patient informed with understanding voiced. sleep study ordered. patient prefers to wait until May to do sleep study. patient scheduled with Vianey on 05/05/18. Samia Perryee 21 Apr 2018 12:28 PM TASK COMPLETED Angi Leahy 22 Apr 2018 10:03 AM TASK REACTIVATED Pt calling in, went to [facility] the Provigil but it was $600. Would like to go back to generic adderal as this was not cost to her. Ok to change back^2 Vianey Meyer 22 Apr 2018 10:45 AM TASK EDITED its okay to change back but we might want to increase this. Did she check on [facility] for coupon codes^2 Where would she like to start off with her Adderall^2 Sneha Batista 22 Apr 2018 12:12 PM TASK EDITED Patient called back in stating that she would like to start at 20 MG twice a day immediate release.or whatever you recommended for the extended release. She is coming by today to see if the [facility] cards work for her. Sneha Batista 22 Apr 2018 12:28 PM TASK EDITED Patient stated that since the [facility] only covers 80 percent it would still be too expensive and would like the generic Adderall. Angi Leahy 22 Apr 2018 2:30 PM TASK REASSIGNED: [facility] Angi Leahy 22 Apr 2018 2:31 PM TASK EDITED Pt called back in, stated that she has done 10 and 15 mg before so she is thinking 20 mg daily might be ok once daily or 10 mg twice daily (not 20 mg twice daily) Vianey Meyer - 22 Apr 2018 2:48 PM TASK EDITED lets try the 10mg bid Message: patient notified-sjs Plan 1. Amphetamine-Dextroamphetamine 10 MG Oral Tablet (Adderall); TAKE 1 TABLET TWICE DAILY Rx By: Vianey Meyer; Dispense: 30 Days ; #:60 Tablet; Refill: 0; For: ADD (attention deficit disorder); ORALIA = N; Print Rx; Last Updated By: Alanna Almaguer; 04/22/2018 3:14:11 PM Signatures Electronically signed by : Alanna Almaguer MA; Apr 22 2018 3:14PM ETL INFORMATICA DEVELOPER (Author) documented in this encounter Plan of Treatment Upcoming Encounters Date Type Department Care Team (Late st Contact Info) Description 09/08/2024 10:10 AM ETL INFORMATICA DEVELOPER Office Visit [facility] Family Medicine - [place] [address] [place] [phone] Samantha Sanders MD [address] [place] [address] documented as of this encounter Visit Diagnoses Not on filedocumented in this encounter
--- OUTSIDE RECORDS SUMMARY | 2024-07-24 00:50 | XMS_ITS | Encounter Summary ---
Author Organization [facility] Address [address] [place] [address]. [place], [place] [address] [place], [place] [phone] Care Team Providers Care Boat Laborer Name Role Phone Vianey Meyer Primary Care Provider [phone] Reason for Visit * Reason Onset Date Comments Follow Up Call 08/23/2018 Encounter Details Date Type Department Care Team (Late st Contact Info) Description 08/23/2018 Telephone [facility] Family & Internal Medicine [address] [address] Vianey Meyer FNP [facility] [place] [address] Follow Up Call Social History [...] of this encounter Progress Notes * Ashley Easley, WINDOWS LAPTOP TECHNICIAN - 08/23/2018 10:34 AM CST Talked with pt mother. Pt is still having abdominal pain. When she was seen at [place] her WBC count was 21.7. Per Vianey pt's mother was advised to take her to [facility]. Mother was agreeable to plan. I called over to [facility] and informed pt was on her way. Informed ER of CT results and WBC. Information faxed as well. FIC WORKER documented in this encounter Plan of Treatment Upcoming Encounters Date Type Department Care Team (Late st Contact Info) Description 09/08/2024 10:10 AM TRAFFIC WORKER Office Visit [facility] Family Medicine - [place] [address] [facility] [address] [place] [address] Samantha Sanders MD [address] [place] [address] documented as of this encounter Visit Diagnoses Not on filedocumented in this encounter Care Teams Boat Laborer Relationship Specialty Start Date End Date Vianey Meyer FNP [address] [place] [address] PCP - General Nurse Practitioner Family 06/21/1805/22/21 documented as of this encounter
--- OUTSIDE RECORDS SUMMARY | 2024-07-24 00:50 | XMS_ITS | Encounter Summary ---
Author Organization [facility] Address [address] [place] [address]. [place], [place] [address] [place] [address] Care Team Providers Care Composition Teacher Name Role Phone Vianey Meyer Primary Care Provider [phone] Reason for Visit * Reason Comments Form (SCAN) [facility] Encounter Details Date Type Department Care Team (Late Contact Info) Description 09/02/2018 Scan HEALTH INFO [facility] Scanned, Documents Form (SCAN) ([facility]) Social History Tobacco Use Types Packs/Day Years [...] Upcoming Encounters Date Type Department Care Team ([facility] Contact Info) Description 09/08/2024 10:10 AM INSURANCE APPRAISER Office Visit [facility] Family Medicine - [place] [address] [place] [phone] Samantha Sanders MD [address] [place], [place] [phone] documented as of this encounter Visit Diagnoses Not on filedocumented in this encounter Care Teams Composition Teacher Relationship Specialty Start Date End Date Vianey Meyer FNP [address] [place] [address] PCP - General Nurse Practitioner Family 06/21/1805/22/21 documented as of this encounter
--- OUTSIDE RECORDS SUMMARY | 2024-07-24 00:50 | XMS_ITS | Encounter Summary ---
Author Organization [facility] Address [address] [place] [address]. [place], [place] [address] [place] [address] Care Team Providers Care Sustainability Coordinator Name Role Phone Vianey Meyer Primary Care Provider [phone] Encounter Details Date Type Department Care Team (Latest Contact Info) Description 06/11/2018 Scan HEALTH INFO [facility] Scanned, Documents Social History Tobacco Use Types Packs/Day Years Used Date Smoking Tobacco: Never Assessed AUDIT-C Answer Date Recorded Frequency of Alcohol Consumption 2-4 times a thu08/16/2018 Average Number of Drinks Not on file 019 Frequency of Binge Drinking Not on file 07/21 Comments Unknown Sex and Gender Information Value Date Recorded Sex Assigned at Not on file Legal Sex Female 4:47 PM CDT Gender Identity Not on file Sexual Orientation Not on file documented as of this encounter Plan of Treatment Upcoming Encounters Date Type Department Care Team (Late st Contact Info) Description 09/08/2024 10:10 AM LEAD RELAY TESTER Office Visit [facility] Family Medicine - [place] [address] [place] [address] Samantha Sanders MD [address] [place] [address] documented as of this encounter Visit Diagnoses Not on filedocumented in this encounter Care Teams Sustainability Coordinator Relationship Specialty Start Date End Date Vianey Meyer FNP [address] [place] [address] PCP - General Nurse Practitioner Family 06/21/1805/22/21 documented as of this encounter
--- OUTSIDE RECORDS SUMMARY | 2024-07-24 00:50 | XMS_ITS | Encounter Summary ---
Author Organization [facility] Address [address] [place] [address]. [place], [place] [address] [place] [address] Care Team Providers Care Patient Care Associate Name Role Phone Vianey Meyer Primary Care Provider [phone] Encounter Details Date Type Department Care Team (Latest Contact Info) Description 11/16/2018 Scan HEALTH INFO [facility] Scanned, Documents Social [...] st Contact Info) Description 09/08/2024 10:10 AM COW RIDER Office Visit [facility] Family Medicine - [place] [address] [place] [address] Samantha Sanders MD [address] [place] [phone] documented as of this encounter Visit Diagnoses Not on filedocumented in this encounter Care Teams Patient Care Associate Relationship Specialty Start Date End Date Vianey Meyer FNP [address] [place] [address] PCP - General Nurse Practitioner Family 06/21/1805/22/21 documented as of this encounter
--- OUTSIDE RECORDS SUMMARY | 2024-07-24 00:50 | XMS_ITS | Encounter Summary ---
Author Organization [facility] Address [address] [place] [address]. [place] [phone] [place], [place] [phone] Care Team Providers Care Nurse Consultant Name Role Phone Vianey Meyer Primary Care Provider [phone] Encounter Details Date Type Department Care Team (Late Contact Info) Description 05/19/2019 [facility] Family & Internal Medicine [facility] [address] [place] [address] Vianey Meyer FNP [address] [place] [address] Social History Tobacco Use Types Packs/Day Years [...] encounter Progress Notes * EMANI Crowder - 05/19/2019 5:09 PM CDT Work note needed documented in this encounter Plan of Treatment Upcoming Encounters Date Type Department Care Team (Late st Contact Info) Description 09/08/2024 10:10 AM VISITING HOUSEKEEPER Office Visit [facility] Family Medicine - [place] [address] [place] [address] Samantha Sanders MD [address] [place] [address] documented as of this encounter Visit Diagnoses Not on filedocumented in this encounter Additional Health Concerns Assessment Noted Time PHQ-9 Depression Total Score: 7 01/18/20 19 12:34 PM CDT documented as of this encounter Care Teams Nurse Consultant Relationship Specialty Start Date End Date Vianey Meyer FNP [address] [place] [address] PCP - General Nurse Practitioner Family 06/21/1805/22/21 documented as of this encounter
--- OUTSIDE RECORDS SUMMARY | 2024-07-24 00:50 | XMS_ITS | Encounter Summary ---
Author Organization [facility] Address [address] [place] [address]. [place] [phone] Care Team Providers Care Tower Erector Helper Name Role Phone Vianey Meyer Primary Care Provider [phone] Reason for Visit * Reason Onset Date Comments Medication Request 09/20/2018 Encounter Details Date Type Department Care Team (Late st Contact Info) Description 09/20/2018 Telephone [facility] Family & Internal Medicine [place] [address] [place] [address] Vianey Meyer FNP [facility] [place] [address] Medication Request Social History Tobacco [...] Progress Notes * Alyssia Smith RN - 09/20/2018 3:43 PM CST Spoke to patient and she verbalized understanding. Denied the need for psychiatry at this time. F DOG LICENSE INSPECTOR * EMANI Crowder - 09/20/2018 1:28 PM CST We can send out a zpak Clonazepam and ADHD medication do not go hand and hand. We can refer her to a psychiatrist if she feels like she needs this. She just told me last week that she was doing well. F DOG LICENSE INSPECTOR * Sneha Batista - 09/20/2018 1:16 PM CST Patient called in stating that she thinks she has an ear infection. She stated that you mentioned that some patients get it after having the flu. She is asking if you would call out a z flip for her? Her symptoms are dizziness, coughing and clogged ears. This just started today. NKDA Pharmacy: [facility] in [place] She also wants to know if you would prescribe her clonazepam to go with her ADHD medication. She stated that she was reading online that they go hand and hand. F DOG LICENSE INSPECTOR documented in this encounter Plan of Treatment Upcoming Encounters Date Type Department Care Team (Late st Contact Info) Description 09/08/2024 10:10 AM CHIEF DOG LICENSE INSPECTOR Office Visit [facility] Family Medicine - [place] [address] [facility] [address] [place] [address] Samantha Sanders MD [address] [place] [address] documented as of this encounter Visit Diagnoses Diagnosis Ear infection- Primary Unspecified otitis media documented in this encounter Care Teams Tower Erector Helper Relationship Specialty Start Date End Date Vianey Meyer FNP [address] [place] [address] [phone] PCP - General Nurse Practitioner Family 06/21/1805/22/21 documented as of this encounter
--- OUTSIDE RECORDS SUMMARY | 2024-07-24 00:50 | XMS_ITS | Encounter Summary ---
Author Organization [facility] Address [address] [place] [address]. [place], [place] [id number] [place], [place] [phone] Care Team Providers Care Lieutenant/Deputy Name Role Phone Unavailable Primary Care Provider Unavailabl e Reason for Visit * Reason Onset Date Comments Medication 05/25/2018 okay to give a 7 day RX due to expense Encounter Details Date Type Department Care Team (Late st Contact Info) Description 05/25/2018 Telephone [facility] Medical Group Family & Internal Medicine [facility] [address] [place] [address] Vianey Meyer FNP [address] [place] [address] Medication (okay to give a 7 day RX due to expense) Social History Tobacco Use Types Packs/Day Years Used Date Smoking Tobacco: Never Assessed Comments Unknown Sex and Gender Information Value Date Recorded Sex Assigned at Not on file Legal Sex Female 4:47 PM CDT Gender Identity Not on file Sexual Orientation Not on file documented as of this encounter Progress Notes * Arti Perry RN - 05/26/2018 1:58 PM CST Patient picked up rx this morning. [employer] * EMANI Crowder - 05/25/2018 4:29 PM CST Okay to rx [employer] * EMANI Crowder - 05/25/2018 4:29 PM CST Okay to RX [employer] documented in this encounter Plan of Treatment Upcoming Encounters Date Type Department Care Team (Late st Contact Info) Description 09/08/2024 10:10 AM [employer] Office Visit [facility] Medical Group Family Medicine - [place] [address] [facility] [address] [place] [phone] Samantha Sanders MD [address] [place], [place] [phone] documented as of this encounter Visit Diagnoses Not on filedocumented in this encounter
--- OUTSIDE RECORDS SUMMARY | 2024-07-24 00:50 | XMS_ITS | Encounter Summary ---
Author Organization [facility] Address [address] [place] [address]. [place], [place] [address] [place] [address] Care Team Providers Care Evaluation Assistant Name Role Phone Unavailable Primary Care Provider Unavailabl e Encounter Details Date Type Department Care Team (Late st Contact Info) Description 05/10/2018 Abstract [facility] Medical Group Family & Internal Medicine [address] [phone] Vianey Meyer FNP [address] [place] [address] Social History Tobacco Use Types Packs/Day Years Used Date Smoking Tobacco: Never Assessed Comments Unknown Sex and Gender Information Value Date Recorded Sex Assigned at Not on file Legal Sex Female 4:47 PM CDT Gender Identity Not on file Sexual Orientation Not on file documented as of this encounter Last Filed Vital Signs Vital Sign Reading Time Taken Comments Blood Pressure 100/64 05/10/2018 10:50 AM CDT Pulse 86 05/10/2018 10:50 AM CDT Temperature - - Respiratory Rate - - Oxygen Saturation - - Inhaled Oxygen Concentration - - Weight 59.9 kg (132 lb) 05/10/2018 10:50 AM CDT Height 162.6 cm (5' 4 ) 05/10/2018 10:50 AM CDT Body Mass Index 22.66 05/10/2018 10:50 AM CDT documented in this encounter Progress Notes * EMANI Crowder - 05/10/2018 10:40 AM CDT Reason For Visit Acute Visit, Chronic Recheck Visit Chief Complaint Patient is following up on ADD, Insomnia and shift work disorder c/o light headed, fatigue and dizziness 3 days History of Present Illness HPI Free Text: Karlie comes to the office today for a follow up of her ADD and fatigue. She also reports feeling fatigued with some ear and sinus pressure for the last 2 weeks. She reports some yellow nasal drainage. She denies fever, cough, ST, N/V/D, or night sweats. She denies treating her symptoms. Karlie reports that she feels like she is in a hazy fog she states that she has been taking 10mg Adderall every 2-4 hours (3-4 times per day) to stay focused and to relieve her hazy cloud she reports the Adderall does improve her concentration but never completely removes the fog and just allows her to concentrate. She states she only takes 1 10mg Adderall on the weekends or days she does notwork. She reports that the amitriptyline helped her sleep, but made her too sleepy throughout the day. She reports she has been sleeping for approximately 6 hours per night. She states that she does not have trouble falling asleep or staying asleep except for the week prior to her menses. She reports daily caffeine use, but states she has tried to cut back on her caffeine. She reports increased irritability and difficulty falling asleep and staying asleep due to her mind racing a week prior to starting her period. She denies symptoms of oly or euphoria. She endorses daily feelings of sadness and occasional feelings of hopelessness. She denies SI or HI. She reports she has an appointment with her psychologist on May 25. Review of Systems See HPI for pertinent positives. Active Problems 1. Acne (706.1) (L70.9) 2. ADD (attention deficit disorder) (314.00) (F98.8) 3. Body mass index (BMI) 22.0-22.9, adult (V85.1) (Z68.22) 4. Fatigue (780.79) (R53.83) 5. Generalized anxiety disorder (300.02) (F41.1) 6. Insomnia (780.52) (G47.00) 7. 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 Ulcerative colitis (556.9) (K51.90) 9. Vitamin D deficiency (268.9) (E55.9) Family History Family History 1. Family history [...] tobacco daily (305.1) (Z72.0) Current Meds 1. Amphetamine-Dextroamphetamine 10 MG Oral Tablet; TAKE 1 TABLET TWICE DAILY; Therapy: 59Hga0816 to (Evaluate:57Xvf6473); Last Rx:[id number] Ordered 2. Eszopiclone 2 MG Oral Tablet; TAKE 1 TABLET BY MOUTH AT BEDTIME NEEDED FOR INSOMNIA; Therapy: 15Tfx2390 to (Evaluate:35Ckk7540); Last Rx:[id number] Ordered 3. Spironolactone 50 MG Oral Tablet; TAKE 1 TABLET DAILY; Therapy: 79Rhu7902 to (Evaluate:69Irr5221) Requested for: 84Zhl5035; Last Rx:[id number] Ordered Allergies 1. No Known Drug Allergies Vitals Recorded: 10May2018 10:50AM Heart Rate 86 Respiration 16 Systolic 100 Diastolic 64 O2 Saturation 98 Height 5 ft 4 in Weight 132 lb BMI Calculated 22.66 BSA Calculated 1.64 Physical Exam Constitutional General appearance: No acute distress, well appearing and well nourished. Eyes Conjunctiva and lids: No swelling, erythema or discharge. Ears, Nose, Mouth, and Throat External inspection of ears and nose: Normal. Otoscopic examination: Tympanic membranes translucent with normal light reflex. Canals patent without erythema. Oropharynx: Abnormal. The posterior pharynx was erythematous. Pulmonary Respiratory effort: No increased work of breathing or signs of respiratory distress. Auscultation of lungs: Clear to auscultation. Cardiovascular Auscultation of heart: Normal rate and rhythm, normal S1 and S2, without murmurs. Examination of extremities for edema and/or varicosities: Normal. Carotid pulses: 2+ bilaterally. Lymphatic Palpation of lymph nodes in neck: No lymphadenopathy. Musculoskeletal Gait and station: Normal. Skin Skin and subcutaneous tissue: Normal without rashes or lesions. Neurologic Cranial nerves: Cranial nerves 2-12 intact. Psychiatric Orientation to person, place, and time: Normal. Mood and affect: Normal. Counseling The patient was counseled regarding instructions for management, risk factor reductions, prognosis,patient and family education, impressions, risks and benefits of treatment options and importance of compliance with treatment. total time of encounter was 40 minutes and 30 minutes was spent counseling. Assessment 1. Depression with anxiety (300.4) (F41.8) 2. Allergic rhinitis (477.9) (J30.9) 3. Fatigue (780.79) (R53.83) 4. ADD (attention deficit disorder) (314.00) (F98.8) 5. Immunization due (V05.9) (Z23) 6. Body mass index (BMI) 22.0-22.9, adult (V85.1) (Z68.22) 7. Insomnia (780.52) (G47.00) Plan ADD (attention deficit disorder) 1. Amphetamine-Dextroamphet ER 30 MG Oral Capsule Extended Release 24 Hour; TAKE 1 CAPSULE Daily Rx By: Vianey Meyer; Dispense: 0 Days ; #:30 Capsule; Refill: 0; For: ADD (attention deficit disorder); ORALIA = N; Print Rx Allergic rhinitis 2. Avoid exposure to cigarette smoke.; Status:Complete; Done: 11May2018 11:49AM Ordered; For:Allergic rhinitis; Ordered By:Vianey Meyer; 3. Call if: Breathing starts to have a wheeze or whistling sound.; Status:Complete; Done: 11May2018 11:49AM Ordered; For:Allergic rhinitis; Ordered By:Vianey Meyer; 4. Avoid exposure to things that make your problem worse.; Status:Complete; Done: 11May2018 11:49AM Ordered; For:Allergic rhinitis; Ordered By:Vianey Meyer; 5. Call if: The symptoms are not better in 7 days.; Status:Complete; Done: 11May2018 11:49AM Ordered; For:Allergic rhinitis; Ordered By:Vianey Meyer; 6. Drink at least 6 glasses of water or juice a day.; Status:Complete; Done: 11May2018 11:49AM Ordered; For:Allergic rhinitis; Ordered By:Vianey Meyer; 7. Call if: The symptoms seem worse.; Status:Complete; Done: 11May2018 11:49AM Ordered; For:Allergic rhinitis; Ordered By:Vianey Meyer; 8. Good hand washing is one of the best ways to control the spread of germs.; Status:Complete; Done: 11May2018 11:49AM Ordered; For:Allergic rhinitis; Ordered By:Vianey Meyer; 9. Call if: You have a severe headache that will not go away.; Status:Complete; Done: 11May2018 11:49AM Ordered; For:Allergic rhinitis; Ordered By:Vianey Meyer; 10. How to use a nasal spray.; Status:Complete; Done: 11May2018 11:49AM Ordered; For:Allergic rhinitis; Ordered By:Vianey Meyer; 11. Call if: You have difficulty breathing, or you are short of breath more often.; Status:Complete; Done: 11May2018 11:49AM Ordered; For:Allergic rhinitis; Ordered By:Vianey Meyer; 12. Several things can be done to allergy-proof the bedroom.; Status:Complete; Done: 11May2018 11:49AM Ordered; For:Allergic rhinitis; Ordered By:Vianey Meyer; 13. Call if: You have pain in your ear.; Status:Complete; Done: 11May2018 11:49AM Ordered; For:Allergic rhinitis; Ordered By:Vianey Meyer; 14. Use a cool mist humidifier in the room.; Status:Complete; Done: 11May2018 11:49AM Ordered; For:Allergic rhinitis; Ordered By:Vianey Meyer; 15. Call if: You have pain in your face, cheeks or forehead.; Status:Complete; Done: 11May2018 11:49AM Ordered; For:Allergic rhinitis; Ordered By:Vianey Meyer; 16. You need to stop smoking. Though it is not easy, more than half of all adult smokers have quit. We encourage you to write down all the reasons you should quit smoking and set a quit date for yourself. Ask us how we can help. You may also call 9-740-VMHRNOW for free resources and assistance.; Status:Complete; Done: 11May2018 11:49AM Ordered; For:Allergic rhinitis; Ordered By:Vianey Meyer; 17. Call if: You have yellow or green nasal discharge.; Status:Complete; Done: 11May2018 11:49AM Ordered; For:Allergic rhinitis; Ordered By:Vianey Meyer; 18. Call if: Your temperature is higher than 101F.; Status:Complete; Done: 11May2018 11:49AM Ordered; For:Allergic rhinitis; Ordered By:Vianey Meyer; Depression with anxiety 19. PARoxetine HCl ER 12.5 MG Oral Tablet Extended Release 24 Hour; TAKE 1 TABLET DAILY Rx By: Vianey Meyer; Dispense: 30 Days ; #:30 Tablet; Refill: 5; For: Depression with anxiety; ORALIA = N; Verified Transmission to [facility] [id number]; Last Updated By: Delma Sarmeks [employer]; 05/10/2018 12:20:00 PM 20. Schedule Follow up 4 weeks Outpatient Follow-up Status: Hold For - Scheduling Requested for: 11May2018 Ordered; For: Depression with anxiety; Ordered By: Vianey Meyer Performed: Due: 25May2018 21. Avoid alcoholic beverages.; Status:Complete; Done: 11May2018 11:47AM Ordered; For:Depression with anxiety; Ordered By:Vianey Meyer; 22. Call if: New symptoms occur.; Status:Complete; Done: 11May2018 11:48AM Ordered; For:Depression with anxiety; Ordered By:Vianey Meyer; 23. Avoid foods and beverages that contain caffeine.; Status:Complete; Done: 11May2018 11:47AM Ordered; For:Depression with anxiety; Ordered By:Vianey Meyer; 24. Call if: The symptoms seem worse.; Status:Complete; Done: 11May2018 11:48AM Ordered; For:Depression with anxiety; Ordered By:Vianey Meyer; 25. Be sure to get at least 8 hours of sleep every night.; Status:Complete; Done: 11May2018 11:47AM Ordered; For:Depression with anxiety; Ordered By:Vianey Meyer; 26. Call if: You are having difficulty sleeping (insomnia).; Status:Complete; Done: 11May2018 11:47AM Ordered; For:Depression with anxiety; Ordered By:Vianey Meyer; 27. Decreasing the stress in your life may help your condition improve.; Status:Complete; Done: 11May2018 11:47AM Ordered; For:Depression with anxiety; Ordered By:Vianey Meyer; 28. Call if: Your feelings of anxiety are not getting better in 2 weeks.; Status:Complete; Done: 11May2018 11:47AM Ordered; For:Depression with anxiety; Ordered By:Vianey Meyer; 29. Please bring all medicines, vitamins, and herbal supplements with you when you come to the office.; Status:Complete; Done: 11May2018 11:47AM Ordered; For:Depression with anxiety; Ordered By:Vianey Meyer; 30. Call if: Your feelings of being frightened, nervous, anxious, and out of control are happening more often.; Status:Complete; Done: 11May2018 11:47AM Ordered; For:Depression with anxiety; Ordered By:Vianey Meyer; 31. Regular aerobic exercise can help reduce stress.; Status:Complete; Done: 11May2018 11:47AM Ordered; For:Depression with anxiety; Ordered By:Vianey Meyer; 32. Call 911 if: You are considering suicide.; Status:Complete; Done: 11May2018 11:48AM Ordered; For:Depression with anxiety; Ordered By:Vianey Meyer; 33. There are many things you can do to help control and end a panic attack.; Status:Complete; Done: 11May2018 11:47AM Ordered; For:Depression with anxiety; Ordered By:Vianey Meyer; 34. Call 911 if: You are thinking about harming yourself or someone else.; Status:Complete; Done: 11May2018 11:48AM Ordered; For:Depression with anxiety; Ordered By:Vianey Meyer; 35. You need to stop smoking. Though it is not easy, more than half of all adult smokers have quit. We encourage you to write down all the reasons you should quit smoking and set a quit date for yourself. Ask us how we can help. You may also call 1-610-GOYJNOW for free resources and assistance.; Status:Complete; Done: 11May2018 11:47AM Ordered; For:Depression with anxiety; Ordered By:Vianey Meyer; 36. Seek Immediate Medical Attention if: ; Status:Complete; Done: 11May2018 11:48AM Ordered; For:Depression with anxiety; Ordered By:Vianey Meyer; 37. Seek Immediate Medical Attention if: You feel your heart is beating very fast or skipping beats.; Status:Complete; Done: 11May2018 11:48AM Ordered; For:Depression with anxiety; Ordered By:Vianey Meyer; Discussion/Summary Discussed with Karlie benefits of talking to a counselor. Karlie expressed feeling that she bottles up her emotions and then they all come out unexpectedly and she becomes overwhelmed. She reportedfeeling that way over the past month and that's when she made an appointment with the psychologist she saw two years ago. Discussed starting on antidepressant to improve her overall mood and feeling foggy . Discussed that she can start paroxetine daily or the week prior to starting her menses for PMS symptoms. Discussed using a daily antihistamine allergy medication such as Zyrtec, Claritin, or Roseanne in addition to Flonase nasal spray daily to improver her allergic rhinitis. Discussed importance of getting blood work drawn in order to assess for other causes of her fatigue, ADD, and depression Signatures Electronically signed by : Vianey Meyer CNP; May 11 2018 11:50AM [employer] (Author) * EMANI Crowder - 05/10/2018 10:40 AM CDT Date: May 10, 2018 To Whom It May Concern: This is to advise that Karlie Ivory has been under my care and should be excused from work May 06 through April. She will return to work on Friday, May 11, 2018 with no restrictions. If you have any quesitons, you may contact my office at the number listed above. Thank you, Vianey MARTINEZ Electronically signed by:Vianey Meyer CNP May 10 2018 12:22PM [employer] documented in this encounter Plan of Treatment Upcoming Encounters Date Type Department Care Team (Late st Contact Info) Description 09/08/2024 10:10 AM [employer]LOADER Office Visit [facility] Medical Group Family Medicine [facility] [address] [place] [phone] Samantha Sanders MD [address] [place] [phone] documented as of this encounter Visit Diagnoses Not on filedocumented in this encounter
--- OUTSIDE RECORDS SUMMARY | 2024-07-24 00:50 | XMS_ITS | Encounter Summary ---
Author Organization [facility] Address [address] [place] [address]. [place], [place] [address] [place] [address] Care Team Providers Care Production Department Supervisor Name Role Phone Vianey Meyer EMANI Primary Care Provider [phone] Reason for Visit * Reason Comments Abdominal Pain Encounter Details Date Type Department Care Team (Late st Contact Info) Description 08/23/2018 1:08 PM TEST SKEIN WINDER - 08/23/2018 1:54 PM TEST SKEIN WINDER Emergency [facility] [place] [address] Abdominal Pain Discharge Disposition: Left Against Medical Advice Social History Tobacco Use Types Packs/Day [...] Sign Reading Time Taken Comments Blood Pressure 93/67 08/23/2018 1:00 PM TEST SKEIN WINDER Pulse 119 08/23/2018 1:00 PM TEST [facility]KEIN WINDER Temperature 36.7 ??C (98.1 ??F) 08/23/2018 1:00 PM CS T Respiratory Rate 18 08/23/2018 1:00 PM TEST SKEIN WINDER Oxygen Saturation 100% 08/23/2018 1:00 PM TEST SKEIN WINDER Inhaled Oxygen Concentration - - Weight 60.8 kg (134 lb) 08/23/2018 1:00 PM TEST SKEIN WINDER Height 162.6 cm (5' 4 ) 08/23/2018 1:00 PM TEST SKEIN WINDER Body Mass Index 23 08/23/2018 1:00 PM TEST SKEIN WINDER documented in this encounter Medications at Time of Discharge buPROPion 75 MG tabletIndications: Generalized anxiety disorder Take 1 tablet (75 mg total) by mouth 2 (two) times daily. 60 tablet 2 08/16/2018 0 Eszopiclone (LUNESTA) 3 MG TabIndications:Ins omnia due to other mental disorder Take 3 mg by mouth nightly at bedtime. Take immediately before bedtime 30 tablet 2 08/16/2018 9 lorazepam 0.5 MG tabletIndications: Depression with anxiety Take 1 tablet (0.5 mg total) by mouth daily for 10 days. 20 tablet 08/16/2018 9 methylphenidate ER (CONCERTA) 27 MG CR tabletIndications: Attention deficit disorder, unspecified hyperactivity presence Take 1 tablet (27 mg total) by mouth every morning for 30 days. 30 tablet 08/16/2018 9 documented as of this encounter ED Notes * Aditi Martin RN - 08/23/2018 1:49 PM CST Pt states she is leaving and is going to call her doctor and see if she can be a direct admit to [facility]- which she states is where she receives her care. [facility] * Vianey Jiménez NP - 08/23/2018 1:20 PM CST [place], [place] EMERGENCY DEPARTMENT ENCOUNTER Medical Screening Examination 08/23/18 1:20 PM Chief Complaint : Abdominal Pain HPI : Karlie Ivory is a 43-year-old femalewith hx of UC presents with sudden onset generalized ABD pain and distension at 1am this morning. Seen at [facility] and was told bowels inflamed on CT scan and probably having UC flare. Pt reports that she has been in remission for 5 yrs and this pain is not similar to her UC. PCP told pt to come to [facility] ER for elevated WBC. +nausea. Decreased urination. Had intercourse last night that was painful with bleeding. Hx hysterectomy May 2018. Vital Signs: Filed Vitals: 08/23/18 1300 BP: 93/67 Pulse: 119 Resp: 18 Temp: 98.1 ??F (36.7 ??C) TempSrc: Temporal SpO2: 100% Weight: 60.8 kg (134 lb) Height: 5' 4 (1.626 m) Physical exam: A brief physical exam was completed to facilitate/expedite patient care. Plan: Necessary labs/imaging/medications ordered to initiate pt care. Vianey Jiménez NP 08/23/18 1324 Cosigned by Watson Duggan DO at 08/23/2018 1:40 PM TEST SKEIN WINDER SKEIN WINDER SKEIN WINDER * Rivka Abraham RN - 08/23/2018 1:04 PM CST Pt to triage with complaint of abdominal pain that started last night. Pt reports she went to [facility] this AM and was scanned, pt was diagnosed with ulcertiive colitis. Pt rcvd call from her PCP and was sent here for further follow up. RIVKA ABRAHAM RN SKEIN WINDER documented in this encounter Plan of Treatment Upcoming Encounters Date Type Department Care Team (Late Contact Info) Description 09/08/2024 10:10 AM TEST SKEIN WINDER Office Visit [facility] Medical Group Family Medicine - [place] [address] [place] [phone] Samantha Sanders MD [address] [place] [phone] documented as of this encounter Visit Diagnoses Not on filedocumented in this encounter Care Teams Production Department Supervisor Relationship Specialty Start Date End Date Vianey Meyer FNP [address] [place] [id number] PCP - General Nurse Practitioner Family 06/21/1805/22/21 documented as of this encounter
--- OUTSIDE RECORDS SUMMARY | 2024-07-24 00:50 | XMS_ITS | Encounter Summary ---
Author Organization [facility] Address [address] [place] [address]. [place], [place] [id number] [place], [place] [id number] Care Team Providers Care Slice Plug Cutter Operator Name Role Phone Unavailable Primary Care Provider Unavailabl e Reason for Visit * Reason Onset Date Comments Medication Information 06/15/2018 Encounter Details Date Type Department Care Team (Late st Contact Info) Description 06/15/2018 Telephone [facility] Medical Group Family & Internal Medicine [id number] [place] [phone] Vianey Meyer FNP [address] [place] [address] Medication Information Social History Tobacco Use Types Packs/Day Years Used Date Smoking Tobacco: Never Assessed Comments Unknown Sex and Gender Information Value Date Recorded Sex Assigned at Not on file Legal Sex Female 4:47 PM CDT Gender Identity Not on file Sexual Orientation Not on file documented as of this encounter Progress Notes * Susy Perry MA - 06/16/2018 3:45 PM CST Patient informed that Vianey will not be prescribing this medication and she would need to get themfrom Dr Oliveira. She denies trying to fill multiple scripts for anything other than trying to find the right medication. She is also wanting you to know that she will see [facility] tomorrow that specializes in ADD. [facility] * EMANI Crowder - 06/15/2018 12:12 PM CST We need to let her know that she will only be able to get these medications from Dr Oliveira. We will no longer be writing these for her. Please note her chart. [facility] * Susy Perry MA - 06/15/2018 11:48 AM CST Debbi from Dr Oliveira's office called to inform you that patient has also been seeing them for ADD controlled medications. Also has had appointments in between her appointments with you and still has upcoming appointment with them. [facility] documented in this encounter Plan of Treatment Upcoming Encounters Date Type Department Care Team (Late st Contact Info) Description 09/08/2024 10:10 AM EPIC [facility] Office Visit [facility] Medical Group Family Medicine - [place] [address] [place] [phone] Samantha Sanders MD [address] [place] [address] documented as of this encounter Visit Diagnoses Not on filedocumented in this encounter
--- OUTSIDE RECORDS SUMMARY | 2024-07-24 00:50 | XMS_ITS | Encounter Summary ---
Author Organization [facility] Address [address] [place] [address]. [place], [place] [address] [place] [address] Care Team Providers Care Road Passenger Firer Name Role Phone Vianey Meyer Primary Care Provider [phone] Encounter Details Date Type Department Care Team (Late st Contact Info) Description 01/03/2019 Orders Only [facility] Family & Internal Medicine [address] [phone] Vianey Meyer FNP [facility] [place] [address] Social History Tobacco Use Types Packs/Day Years [...] Contact Info) Description 09/08/2024 10:10 AM LABORER FRYER FARM Office Visit [facility] Family Medicine [facility] [address] [place] [address] Samantha Sanders MD [address] [place], [place] [address] documented as of this encounter Visit Diagnoses Diagnosis Attention deficit disorder, unspecified hyperactivity presence- Primary documented in this encounter Care Teams Road Passenger Firer Relationship Specialty Start Date End Date Vianey Meyer FNP [address] [place] [address] PCP - General Nurse Practitioner Family 06/21/1805/22/21 documented as of this encounter
--- OUTSIDE RECORDS SUMMARY | 2024-07-24 00:50 | XMS_ITS | Encounter Summary ---
Author Organization [facility] Address [address] [place] [address]. [place] [id number] [place], [place] [id number] Care Team Providers Care Manager Qa Name Role Phone Vianey Meyer Primary Care Provider [phone] Encounter Details Date Type Department Care Team (Late st Contact Info) Description 02/28/2019 Orders Only [facility] Family & Internal Medicine [facility] [address] [place] [address] Vianey Meyer FNP [facility] [place] [address] Social History Tobacco Use Types Packs/Day Years [...] encounter Progress Notes * EMANI Crowder - 02/28/2019 6:26 PM CDT Med refill documented in this encounter Plan of Treatment Upcoming Encounters Date Type Department Care Team (Late st Contact Info) Description 09/08/2024 10:10 AM DINKEY BRAKEMAN Office Visit [facility] Family Medicine - [place] [address] [facility] [address] [place] [address] Samantha Sanders MD [address] [place] [address] documented as of this encounter Visit Diagnoses Diagnosis Attention deficit disorder, unspecified hyperactivity presence documented in this encounter Additional Health Concerns Assessment Noted Time PHQ-9 Depression Total Score: 7 01/18/20 19 12:34 PM CDT documented as of this encounter Care Teams Manager Qa Relationship Specialty Start Date End Date Vianey Meyer FNP [address] [place] [address] PCP - General Nurse Practitioner Family 06/21/1805/22/21 documented as of this encounter
--- OUTSIDE RECORDS SUMMARY | 2024-07-24 00:50 | XMS_ITS | Encounter Summary ---
Author Organization [facility] Address [address] [place] [address]. [place], [place] [address] [place] [address] Care Team Providers Care Double Bass Player Name Role Phone Vianey Meyer Primary Care Provider [phone] Encounter Details Date Type Department Care Team (Latest Contact Info) Description 06/04/2018 Scan HEALTH INFO SRVCS Scanned, Documents Social [...] st Contact Info) Description 09/08/2024 10:10 AM HAM MARKER Office Visit [facility] Family Medicine [facility] [address] [facility] [address] [place] [address] Samantha Sanders MD [address] [place] [address] documented as of this encounter Visit Diagnoses Not on filedocumented in this encounter Care Teams Double Bass Player Relationship Specialty Start Date End Date Vianey Meyer FNP [address] [place] [address] [phone] PCP - General Nurse Practitioner Family 06/21/1805/22/21 documented as of this encounter
--- OUTSIDE RECORDS SUMMARY | 2024-07-24 00:50 | XMS_ITS | Encounter Summary ---
Author Organization [facility] Address [address] [place] [address]. [place], [place] [address] [place] [address] Care Team Providers Care Mid Level Java Developer Name Role Phone Vianey Meyer EMANI Primary Care Provider Encounter Details Date Type Department Care Team (Late Contact Info) Description 09/16/2018 Orders Only [facility] Family & Internal Medicine [address] [phone] Susy Perry, PRISCILA Social History Tobacco Use [...] Contact Info) Description 09/08/2024 10:10 AM HEALTH LEAD Office Visit [facility] Family Medicine [facility] [address] [place] [address] [phone] Samantha Sanders MD [address] [place] [phone] documented as of this encounter Visit Diagnoses Not on filedocumented in this encounter Care Teams Mid Level Java Developer Relationship Specialty Start Date End Date Vianey Meyer FNP [address] [place] [address] PCP - General Nurse Practitioner Family 06/21/1805/22/21 documented as of this encounter
--- OUTSIDE RECORDS SUMMARY | 2024-07-24 00:50 | XMS_ITS | Encounter Summary ---
Author Organization [facility] Address [address] [place] [address]. [place], [place] [address] [place] [address] Care Team Providers Care Real Estate Asset Manager Name Role Phone Unavailable Primary Care Provider Unavailabl e Encounter Details Date Type Department Care Team (Latest Contact Info) Description 04/20/2018 Abstract [facility] , Horacio Crabtree MD Social [...] st Contact Info) Description 09/08/2024 10:10 AM PIPE STEM REPAIRER Office Visit [facility] Family Medicine - [place] [address] [place] [address] Samantha Sanders MD [address] [place] [address] [phone] documented as of this encounter Visit Diagnoses Not on filedocumented in this encounter
--- OUTSIDE RECORDS SUMMARY | 2024-07-24 00:50 | XMS_ITS | Encounter Summary ---
Author Organization [facility] Address [address] [place] [address]. [place], [place] [address] [place] [address] Care Team Providers Care Leadership Intern Name Role Phone Vianey Meyer Primary Care Provider [phone] Encounter Details Date Type Department Care Team (Late st Contact Info) Description 01/31/2019 Orders Only [facility] Family & Internal Medicine [address] [address] Vianey Meyer FNP [facility] [place] [address] Social History Tobacco Use Types Packs/Day Years [...] st Contact Info) Description 09/08/2024 10:10 AM CURED MEAT PACKING SUPERVISOR Office Visit [facility] Family Medicine [facility] [address] [place] [address] [phone] Samantha Sanders MD [address] [place], [place] [address] documented as of this encounter Visit Diagnoses Diagnosis Attention deficit disorder, unspecified hyperactivity presence documented in this encounter Additional Health Concerns Assessment Noted Time PHQ-9 Depression Total Score: 7 01/18/20 19 12:34 PM CDT documented as of this encounter Care Teams Leadership Intern Relationship Specialty Start Date End Date Vianey Meyer FNP [address] [place] [address] PCP - General Nurse Practitioner Family 06/21/1805/22/21 documented as of this encounter
--- OUTSIDE RECORDS SUMMARY | 2024-07-24 00:50 | XMS_ITS | Encounter Summary ---
Author Organization [facility] Address [address] [place] [address]. [place], [place] [address] [place], [place] [id number] Care Team Providers Care Clinical Audiologist Name Role Phone Vianey Meyer Primary Care Provider [phone] Reason for Visit * Reason Onset Date Comments Medication Problem 11/04/2018 Encounter Details Date Type Department Care Team (Late st Contact Info) Description 11/04/2018 Telephone [facility] Family & Internal Medicine [address] [address] Vianey Meyer FNP [facility] [place] [address] Medication Problem Social History Tobacco [...] encounter Progress Notes * Angi Leahy - 11/04/2018 1:24 PM CDT Pt calling, stated that she thought she took rxs for her adderal 30 mg [facility] September[facility] and pt cannot find it at home. [facility]. Pt is asking for the October rx to be resent over and is also asking if there is a 25 mg that she could use instead of 30 mg. documented in this encounter Plan of Treatment Upcoming Encounters Date Type Department Care Team (Late st Contact Info) Description 09/08/2024 10:10 AM SPRING ENCASER Office Visit [facility] Family Medicine - [place] [address] [facility] [address] [place] [phone] Samantha Sanders MD [address] [place] [phone] documented as of this encounter Visit Diagnoses Not on filedocumented in this encounter Care Teams Clinical Audiologist Relationship Specialty Start Date End Date Vianey Meyer FNP [address] [place] [address] PCP - General Nurse Practitioner Family 06/21/1805/22/21 documented as of this encounter
--- OUTSIDE RECORDS SUMMARY | 2024-07-24 00:50 | XMS_ITS | Encounter Summary ---
Author Organization [facility] Address [address] [place] [address]. [place], [place] [address] [place], [place] [phone] Care Team Providers Care Rehab Department Manager Name Role Phone Unavailable Primary Care Provider Unavailabl e Encounter Details Date Type Department Care Team (Latest Contact Info) Description 05/14/2018 Abstract [facility] , Generic MD Bro Social History Tobacco Use Types Packs/Day Years Used Date Smoking Tobacco: Never Assessed Comments Unknown Sex and Gender Information Value Date Recorded Sex Assigned at Not on file Legal Sex Female 4:47 PM CDT Gender Identity Not on file Sexual Orientation Not on file documented as of this encounter Progress Notes * Generic Conversion MD Nito - 05/14/2018 8:54 AM CDT Message Recorded as Task Date: 05/13/2018 11:04 AM, Created By: Mila Liu Task Name: Medical Complaint Callback Assigned To: [facility] Nurse Team Regarding Patient: Karlie Ivory, Status: In Progress Comment: Mila Liu - 13 May 2018 11:04 AM TASK CREATED pat calling in because of crazy stressful week with losing job and court hearings. she said she's not sleeping well. she said you talked about some lorazepam to help her sleep. she said she was wanting something to help with the stress and lack of sleep. [phone] Vianey Meyer - 13 May 2018 12:18 PM TASK REPLIED TO: [facility] She really needs a psychiatrist. We need to get her in to see one. We can prescribe Lorazepam 0.5mg take 1-2 tablets at bedtime. dsp 30 no refills. Arti Perry - 13 May 2018 3:22 PM TASK IN PROGRESS Arti Perry - 13 May 2018 3:30 PM TASK REPLIED TO: Previously Assigned To [facility] rx called into pharmacy. patient states that she has psychiatry appointment scheduled for 05/25/18. patient states that she will call psychiatry and see if they can get her in sooner. Vianey Meyer - 13 May 2018 5:19 PM TASK REPLIED TO: Previously Assigned To Vianey Meyer noted. thank you Signatures Electronically signed by : Arti Perry, ; May 14 2018 8:54AM PIPE MAKER (Author) documented in this encounter Plan of Treatment Upcoming Encounters Date Type Department Care Team (Late st Contact Info) Description 09/08/2024 10:10 AM PIPE MAKER Office Visit [facility] Family Medicine - [place] [address] [place], [place] [address] Samantha Sanders MD [address] [place] [address] documented as of this encounter Visit Diagnoses Not on filedocumented in this encounter
--- OUTSIDE RECORDS SUMMARY | 2024-07-24 00:50 | XMS_ITS | Encounter Summary ---
Author Organization [facility] Address [address] [place] [address]. [place], [place] [address] [place], [place] [phone] Care Team Providers Care Flyer Repairer Name Role Phone Vianey Meyer Primary Care Provider [phone] Reason for Referral * Psychiatric (Routine) - Closed Specialty Diagnoses / Procedures Referred By [place] Referred To Contact Psychiatry Diagnoses Depression with anxiety Generalized anxiety disorder Vianey Meyer FNP [address] [place] [address] Phone: tel: fax: Referral ID Status Reason Start Date Expiration Date V isits Requested Visits Authorized [id number] Closed Specialty Services 11/23/2018 12/23/2019 1 1 Reason for Visit * Reason Onset Date Comments Lab Results 11/22/2018 Encounter Details Date Type Department Care Team (Late st Contact Info) Description 11/22/2018 Telephone [facility] Family & Internal Medicine [facility] [address] [place] [address] Vianey Meyer FNP [address] [place] [address] Lab Results Social History Tobacco Use Types [...] Progress Notes * Alyssia Smith RN - 11/23/2018 9:03 AM CDTAddended by: ALYSSIA SMITH on: 11/23/2018 09:03 AM Modules accepted: Orders * Alyssia Smith RN - 11/23/2018 9:03 AM CDT Referral sent to psych * EMANI Crowder - 11/22/2018 3:19 PM CDT Noted but we were discussing a referral to psychiatry anyway. * Susy Perry MA - 11/22/2018 2:09 PM CDT Informed patient of results and she states she still has the lorazepam from July that was prescribes prn. * Susy Perry MA - 11/22/2018 1:31 PM CDT Contacted patient to go over results but she stated that she is at work and will call back. Tn 11-22-18 * Susy Perry MA - 11/22/2018 1:31 PM CDT ----- Message from EMANI Crowder sent at 11/22/2018 12:33 PM CDT ----- Urine drug screen showed positive for benzodiazepines and marijuana. We do not prescribe her any benzo's . Is she getting this from another provider? We should refer her to psychiatry for any furtheradderall refills if she is also taking benzos. documented in this encounter Plan of Treatment Upcoming Encounters Date Type Department Care Team (Late st Contact Info) Description 09/08/2024 10:10 AM LIBRARY ATTENDANT Office Visit [facility] Family Medicine - [place] [address] [facility] [address] [place] [address] Samantha Sanders MD [address] [place] [address] Scheduled Referrals Name Type Priority Associated Diagnoses Orde r Schedule Ambulatory Referral to Psychiatry Referral Routine Depression with anxiety Generalized anxiety disorder Ordered: 11/23/2018 documented as of this encounter Visit Diagnoses Diagnosis Depression with anxiety- Primary Dysthymic disorder Generalized anxiety disorder documented in this encounter Care Teams Flyer Repairer Relationship Specialty Start Date End Date Vianey Meyer FNP [address] [place] [address] PCP - General Nurse Practitioner Family 06/21/1805/22/21 documented as of this encounter
--- OUTSIDE RECORDS SUMMARY | 2024-07-24 00:50 | XMS_ITS | Encounter Summary ---
Author Organization [facility] Address [address] [place] [address]. [place] [phone] Care Team Providers Care Cardiology Consultants Name Role Phone Unavailable Primary Care Provider Unavailabl e Encounter Details Date Type Department Care Team (Latest Contact Info) Description 05/21/[address] [facility] , Generic ConversionMD Social History Tobacco Use Types Packs/Day Years Used Date Smoking Tobacco: Never Assessed Comments Unknown Sex and Gender Information Value Date Recorded Sex Assigned at Not on file Legal Sex Female 4:47 PM CDT Gender Identity Not on file Sexual Orientation Not on file documented as of this encounter Progress Notes * Generic Conversion MD Nito - 05/21/2018 1:01 PM CDT Message Recorded as Task Date: 05/19/2018 02:35 PM, Created By: Mila Liu Task Name: Medical Complaint Callback [facility] Regarding Patient: Karlie Ivory, Status: In Progress Comment: Mila Liu - 19 May 2018 2:35 PM TASK CREATED pt calling in because she wanted to talk with you about the vyvanse rx. she thinks now her insurance will cover it and she said its a less harsh prescription for her so she would like to go back to that if we can. we made her a follow up apt on Thursday at 11:20 if you need to see her but I told her we could cancel it tomorrow if you don't think its necessary. cb: [phone] Vianey Meyer - 21 May 2018 8:27 AM TASK EDITED okay to change back to vyvanse 30mg daily. She does not have to be seen for this switch just a month after. Susy Perry - 21 May 2018 10:03 AM TASK EDITED Patient contacted and informed, will change appointment for 1 month out when she picks up the rx. Patient also states she is doing much better that when she was in for an appointment. tn Susy Perry - 21 May 2018 10:03 AM TASK IN PROGRESS Signatures Electronically signed by : Arti Perry, ; May 21 2018 1:01PM HAND LASTER (Author) LASTER documented in this encounter Plan of Treatment Upcoming Encounters Date Type Department Care Team (Late st Contact Info) Description 09/08/2024 10:10 AM HAND LASTER Office Visit [facility] Family Medicine - [place] [address] [place], [place] [phone] Samantha Sanders MD [address] [place], [place] [address] documented as of this encounter Visit Diagnoses Not on filedocumented in this encounter
--- OUTSIDE RECORDS SUMMARY | 2024-07-24 00:50 | XMS_ITS | Encounter Summary ---
Author Organization [facility] Address [address] [place] [address]. [place], [place] [address] [place] [address] Care Team Providers Care Pony Rougher Name Role Phone Vianey Meyer Primary Care Provider Encounter Details Date Type Department Care Team (Late st Contact Info) Description 11/04/2018 Orders Only [facility] Family & Internal Medicine [address] [address] Vianey Meyer FNP [facility] [place] [address] Social History Tobacco Use Types Packs/Day Years [...] st Contact Info) Description 09/08/2024 10:10 AM CRISIS COUNSELOR Office Visit [facility] Family Medicine [facility] [address] [place] [phone] Samantha Sanders MD [address] [place], [place] [address] documented as of this encounter Visit Diagnoses Diagnosis Attention deficit disorder, unspecified hyperactivity presence- Primary documented in this encounter Care Teams Pony Rougher Relationship Specialty Start Date End Date Vianey Meyer FNP [address] [place] [address] PCP - General Nurse Practitioner Family 06/21/1805/22/21 documented as of this encounter
--- OUTSIDE RECORDS SUMMARY | 2024-07-24 00:50 | XMS_ITS | Encounter Summary ---
Author Organization [facility] Address [address] [place] [address]. [place] [address] Care Team Providers Care Reed Repairer Name Role Phone Vianey Meyer Primary Care Provider [phone] Reason for Visit * Reason Comments Depression crying episodes Encounter Details Date Type Department Care Team (Late st Contact Info) Description 01/17/2019 10:40 AM CDT Office Visit [facility] Family & Internal Medicine [address] [phone] Vianey Meyer FNP [facility] [place], [place] [id number] Depression (crying episodes ) Social History Tobacco Use Types Packs/Day [...] Sign Reading Time Taken Comments Blood Pressure 109/67 01/17/2019 11:00 AM CDT Pulse 64 01/17/2019 11:00 AM CDT Temperature - - Respiratory Rate 16 01/17/2019 11:00 AM CDT Oxygen Saturation 98% 01/17/2019 11:00 AM CDT Inhaled Oxygen Concentration - - Weight 57.6 kg (127 lb) 01/17/2019 11:00 AM CDT Height 162.6 cm (5' 4 ) 01/17/2019 11:00 AM CDT Body Mass Index 21.8 01/17/2019 11:00 AM CDT documented in this encounter Patient Instructions * Patient Instructions* EMANI Crowder - 01/17/2019 10:40 AM CDT Take medications as directed and prescribed Call for any questions or concerns Restart your bupropion daily as previously prescribed. Follow up every 3 months or sooner if you need any dosage changes. documented in this encounter Progress Notes * EMANI Crowder - 01/17/2019 10:40 AM CDT Office Progress Note Reason for Visit: Depression (crying episodes ) History of Present Illness: Karlie presents to the office for c/o increased depression since she has had to put her dog to sleep unexpectedly. She has been on Buspar in the past and this helped with her anxiety. She denies SI or HI presently. She has not been taking the buproprion that she was prescribed previously. We discussed restarting this to help with her symptoms. She is agreeable to this plan. She has lost her job and her son has been having issues and has moved in with her and she is stressed about this. She reports that she had to take an increased dose of her Adderall to help with her symptoms. We discussed that this was inappropriate and she should call in if she feels she needs her dose increased. She verbalizes understanding. I will increase her daily dose to see if this helps. ROS: Review of Systems Constitutional: Negative for chills, fever and weight loss. [...] falls, joint pain, myalgias and neck pain. Neurological: Negative for dizziness, tingling, tremors, sensory change, speech change, focal weakness, seizures, loss of consciousness, weakness and headaches. Psychiatric/Behavioral: Positive for depression. Negative for substance abuse and suicidal ideas. The patient is nervous/anxious. The patient does not have insomnia. Medications: Current Outpatient Medications on File Prior to Visit Medication Sig ??? Eszopiclone (LUNESTA) 3 MG Tab Take 3 mg by mouth nightly at bedtime. Take immediately before bedtime ??? buPROPion 75 MG tablet Take 1 tablet (75 mg total) by mouth 2 (two) times daily. ??? ciprofloxacin 500 MG tablet TAKE 1 TABLET BY MOUTH TWICE DAILY FOR 10 DAYS ??? dicyclomine 10 MG capsule ??? ibuprofen 600 MG tablet ??? oseltamivir 75 MG capsule ??? trazodone 50 MG tablet No current [...] file Gets together: Not on file Attends sikh service: Not on file Active member of [...] pain. Neck supple. Normal carotid pulses present. Carotid bruit is not present. No tracheal deviation present. Nothyroid mass and no thyromegaly present. Cardiovascular: Normal rate, regular rhythm and [...] bowel sounds are normal. She exhibits no distension, no abdominal bruit and no pulsatile midline mass. Musculoskeletal: Normal range of motion. She exhibits no tenderness or deformity. Lymphadenopathy: She has no cervical adenopathy. Neurological: She is alert and oriented to person, place, and time. She has normal strength and normal reflexes. No cranial nerve deficit or sensory deficit. Coordination and gait normal. Skin: Skin is warm, dry and intact. No rash noted. No erythema. Psychiatric: Her speech is normal and behavior is normal. Judgment and thought content normal. Her affect is blunt. Cognition and memory are normal. tearful Nursing note and vitals reviewed. Filed Vitals: 01/17/19 1100 BP: 109/67 Pulse: 64 Resp: 16 SpO2: 98% Weight: 57.6 kg (127 lb) Height: 5' 4 (1.626 m) Diagnoses/Impression: 1. Anxiety busPIRone 10 MG tablet 2. Attention deficit disorder, unspecified hyperactivity presence amphetamine- dextroamphetamine (ADDERALL) 10 MG tablet Recommendations and Plan: 1. Anxiety - busPIRone 10 MG tablet; Take 1 tablet (10 mg total) by mouth 2 (two) times daily. Dispense: 60 tablet; Refill: 11 2. Attention deficit disorder, unspecified hyperactivity presence - amphetamine-dextroamphetamine (ADDERALL) 10 MG tablet; Take 2 tablets (20 mg total) by mouth 2 (two) times daily. Dispense: 60 tablet; Refill: 0 Orders Placed This Encounter ??? busPIRone 10 MG tablet ??? amphetamine-dextroamphetamine (ADDERALL) 10 MG tablet Cannot display discharge medications since this is not an admission. PCP: EMANI KILGORE 01/17/2019 documented in this encounter Plan of Treatment Upcoming Encounters Date Type Department Care Team (Late st Contact Info) Description 09/08/2024 10:10 AM GEODESY TEACHER Office Visit [facility] Medical Group Family Medicine - [place] [address] [place] [phone] Samantha Sanders MD [address] [place] [address] documented as of this encounter Visit Diagnoses Diagnosis Anxiety- Primary Anxiety state, unspecified Attention deficit disorder, unspecified hyperactivity presence Depression with anxiety Dysthymic disorder documented in this encounter Additional Health Concerns Assessment Noted Time PHQ-9 Depression Total Score: 7 01/18/20 19 12:34 PM CDT documented as of this encounter Care Teams Reed Repairer Relationship Specialty Start Date End Date Vianey Meyer FNP [address] [place] [address] PCP - General Nurse Practitioner Family 06/21/1805/22/21 documented as of this encounter
--- OUTSIDE RECORDS SUMMARY | 2024-07-24 00:50 | XMS_ITS | Encounter Summary ---
Author Organization [facility] Address [address] [place] [address]. [place], [place] [phone] [place] [address] Care Team Providers Care Paper Coating Machine Operator Name Role Phone Unavailable Primary Care Provider Unavailabl e Reason for Visit * Reason Comments Lab (SCAN) Encounter Details Date Type Department Care Team (Latest Contact Info) Description 05/26/2018 Scan [facility] HEALTH INFO SRVCS Scanned, Documents [...] st Contact Info) Description 09/08/2024 10:10 AM HVAC DESIGN MECHANICAL ENGINEER Office Visit [facility] Family Medicine [facility] [address] [place] [address] Samantha Sanders MD [address] [place] [phone] documented as of this encounter Procedures Procedure Name Priority Date/Time Associated Diagnosis Comments OUTSIDE LAB (SCAN ORDER) Routine 05/26/2018 documented in this encounter Results * OUTSIDE LAB (05/26/2018) 05/26/2018 us Documents Scanned SCANNING Edited Result - Final documented in this encounter Visit Diagnoses Not on filedocumented in this encounter
--- OUTSIDE RECORDS SUMMARY | 2024-07-24 00:50 | XMS_ITS | Encounter Summary ---
Author Organization [facility] Address [address] [place] [address]. [place], [place] [id number] [place] [address] Care Team Providers Care Fly Winder Name Role Phone Vianey Meyer EMANI Primary Care Provider [phone] Reason for Visit * Reason Comments Abdominal Pain Encounter Details Date Type Department Care Team (Late st Contact Info) Description 08/23/2018 6:59 PM HOSE SEAMER - 08/23/2018 7:05 PM HOSE SEAMER Emergency [facility] [place] [address] Abdominal Pain Discharge Disposition: Left Against Medical [...] - Inhaled Oxygen Concentration - - Weight 60.8 kg (134 lb) 08/23/2018 6:46 PM HOSE SEAMER Height 162.6 cm (5' 4 ) 08/23/2018 6:46 PM HOSE SEAMER Body Mass Index 23 08/23/2018 6:46 PM HOSE SEAMER documented in this encounter Medications at Time [...] Notes * Aditi Martin RN - 08/23/2018 7:00 PM CST This pt arrived to the ED and immediately states that she did not want to wait for a room. She received an RME upon arrival. I spoke with this pt at length regarding her ability to receive care here and that we are happy to see her here. Pt states she does not want to wait to be seen and will leave SEAMER * Carolina Abraham RN - 08/23/2018 6:57 PM CST Pt to triage for the 2nd time, pt was triaged earlier and LWBS , pt went home and called an ambulance with the intention of going back without a wait, pt was brought to triage and rn called Charge RNbecause pt upset and wants to LWBS again. SEAMER documented in this encounter Plan of Treatment Upcoming Encounters Date Type Department Care Team (Late st Contact Info) Description 09/08/2024 10:10 AM HOSE SEAMER Office Visit [facility] Family Medicine - [place] [address] [place] [address] Samantha Sanders MD [address] [place] [address] documented as of this encounter Visit Diagnoses Not on filedocumented in this encounter Care Teams Fly Winder Relationship Specialty Start Date End Date Vianey Meyer FNP [address] [place] [address] PCP - General Nurse Practitioner Family 06/21/1805/22/21 documented as of this encounter
--- OUTSIDE RECORDS SUMMARY | 2024-07-24 00:50 | XMS_ITS | Encounter Summary ---
Author Organization [facility] Address [address] [place] [address]. [place], [place] [address] [place] [address] Care Team Providers Care Job Foreman Name Role Phone Vianey Meyer LEVELMAN Primary Care Provider [phone] Reason for Visit * Reason Comments Lab (SCAN) Encounter Details Date Type Department Care Team (Latest Contact Info) Description 09/02/2018 Scan [facility] HEALTH INFO SRVCS Scanned, Documents [...] st Contact Info) Description 09/08/2024 10:10 AM CASE RESOLUTION SPECIALIST Office Visit [facility] Family Medicine - [place] [address] [place] [address] Samantha Sanders MD [address] [place] [address] documented as of this encounter Procedures Procedure Name Priority Date/Time Associated Diagnosis Comments PATHOLOGY GENERIC (SCAN ORDER) Routine 09/02/2018 OUTSIDE LAB (SCAN ORDER) Routine 09/02/2018 documented in this encounter Results * PATHOLOGY (09/02/2018) 09/02/2018 us Documents Scanned SCANNING Edited Result - Final * OUTSIDE LAB (09/02/2018) 09/02/2018 us Documents Scanned SCANNING Edited Result - Final documented in this encounter Visit Diagnoses Not on filedocumented in this encounter Care Teams Job Foreman Relationship Specialty Start Date End Date Vianey Meyer FNP [address] [place] [address] PCP - General Nurse Practitioner Family 06/21/1805/22/21 documented as of this encounter
--- OUTSIDE RECORDS SUMMARY | 2024-07-24 00:50 | XMS_ITS | Encounter Summary ---
Author Organization [facility] Address [address] [place] [address]. [place], [place] [phone] [place] [address] Care Team Providers Care Staff Development Coordinator Name Role Phone Vianey Meyer EMANI Primary Care Provider Encounter Details Date Type Department Care Team (Latest Contact Info) Description 03/31/2019 Scan HEALTH INFO SRVCS Scanned, Documents Social [...] st Contact Info) Description 09/08/2024 10:10 AM RETORT PRESS OPERATOR Office Visit [facility] Medical [facility] Family Medicine - [place] [address] [place] [phone] Samantha Sanders MD [address] [place] [phone] documented as of this encounter Visit Diagnoses Not on filedocumented in this encounter Additional Health Concerns Assessment Noted Time PHQ-9 Depression Total Score: 7 01/18/20 19 12:34 PM CDT documented as of this encounter Care Teams Staff Development Coordinator Relationship Specialty Start Date End Date Vianey Meyer FNP [address] [place] [address] PCP - General Nurse Practitioner Family 06/21/1805/22/21 documented as of this encounter
--- OUTSIDE RECORDS SUMMARY | 2024-07-24 00:50 | XMS_ITS | Encounter Summary ---
Author Organization [facility] Address [address] [place] [address]. [place], [place] [address] [place] [address] Care Team Providers Care Elastic Attacher Overlock Name Role Phone Vianey Meyer Primary Care Provider Encounter Details Date Type Department Care Team (Late st Contact Info) Description 11/16/2018 Orders Only [facility] Family & Internal Medicine [address] [phone] Vianey Meyer FNP [facility] [place] [address] Social History Tobacco Use Types Packs/Day Years [...] Contact Info) Description 09/08/2024 10:10 AM SLOT EDITOR Office Visit [facility] Family Medicine [facility] [address] [place] [phone] Samantha Sanders MD [address] [place], [place] [address] documented as of this encounter Visit Diagnoses Diagnosis Attention deficit hyperactivity disorder (ADHD), unspecified ADHD type- Primary Attention deficit disorder, unspecified hyperactivity presence documented in this encounter Care Teams Elastic Attacher Overlock Relationship Specialty Start Date End Date Vianey Meyer FNP [address] [place] [address] PCP - General Nurse Practitioner Family 06/21/1805/22/21 documented as of this encounter
--- OUTSIDE RECORDS SUMMARY | 2024-07-24 00:50 | XMS_ITS | Encounter Summary ---
Author Organization [facility] Address [address] [place] [address]. [place], [place] [phone] [place], [place] [phone] Care Team Providers Care Watermaster Name Role Phone Vianey Meyer Primary Care Provider [phone] Encounter Details Date Type Department Care Team (Late st Contact Info) Description 11/17/2018 Orders Only [facility] Medical [facility] Family & Internal Medicine [place] [address] [place] [address] Vianey Meyer FNP [facility] [place] [address] Social History Tobacco Use Types Packs/Day Years [...] of this encounter Progress Notes * EMANI Crowedr - 11/22/2018 12:33 PM CDT Urine drug screen showed positive for benzodiazepines and marijuana. We do not prescribe her any benzo's . Is she getting this from another provider? We should refer her to psychiatry for any furtheradderall refills if she is also taking benzos. documented in this encounter Plan of Treatment Upcoming Encounters Date Type Department Care Team (Late st Contact Info) Description 09/08/2024 10:10 AM GLOBAL LOGISTICS ANALYST Office Visit [facility] Family Medicine - [place] [address] [place] [address] Samantha Sanders MD [address] [place], [place] [phone] documented as of this encounter Procedures Procedure Name Priority Date/Time Associated Diagnosis Comments DRUG MONITORING, PANEL 5, SCREEN (U) Routine 11/17/2018 7:40 AM CDT TEST AUTHORIZATION Routine 11/17/2018 7: 40 AM CDT documented in this encounter Results * (ABNORMAL) PAIN MANAGEMENT 5 PROFILE WITHOUT CONFIRMATION, URINE (11/17/2018 7:40 AM CDT) CREATININE RANDOM URINE 304.4 > or = 20.0 mg/dL [facility] pH PM (U) 8.23 4.5 - 9.0 [facility] OXIDANT NEGATIVE <200 mcg/mL [facility] AMPHETAMINES PM POSITIVE(A) <500 ng/mL [facility] BARBITURATES PM (U) NEGATIVE <300 ng/mL [facility] BENZODIAZEPINES PM (U) POSITIVE(A) <100 ng/mL [facility] MARIJUANA METABOLITE PM (U) POSITIVE(A) <20 ng/mL [facility] COCAINE METABOLITE PM (U) NEGATIVE <150 ng/mL [facility] METHADONE PM (U) NEGATIVE <100 ng/mL [facility] OPIATES PM (U) NEGATIVE <100 ng/mL [facility] OXYCODONE PM (U) NEGATIVE <100 ng/mL [facility] Comment: [facility] Comment: See Note 1 NO COLLECTION DATE RECEIVED. WE HAVE USED THE DATE THE SPECIMEN WAS RECEIVED BY THIS LABORATORY THE COLLECTION DATE. IF THIS IS INCORRECT, PLEASE CONTACT CLIENT SERVICES. PHONE NUMBER: [phone] Note 1 This drug testing is for medical treatment only. ?? The results are presumptive; based only on screening methods, and they have not been confirmed by a definitive method. Analysis was performed as non-forensic testing and these results should be used only by healthcare providers to render diagnosis or treatment, or to monitor progress of medical conditions. For assistance with interpreting these drug results, please contact a [facility] Specialist: [phone] ), M-F, 8am-6pm EST. 11/17/2018 7:40 AM CDT 11/17/2018 7:40 AM CDT Narrative [facility] - 11/19/2018 8:34 PM CDT FASTING: UNKNOWN Resulting Agency Comment Performing Organization Information: ?Site ID: AP ?Name: [facility] ?Address: [address] [place] [address], Floor 2 [place] [address] ?Director: Sánchez [place] Ph.D. Vianey Meyer [facility] Final Result [facility] [employer] [address], * TEST AUTHORIZATION (11/17/2018 7:40 AM CDT) Comment: [facility] Comment: THE REQUISITION HAS NO TESTS MARKED. WE RECEIVED THE FOLLOWING SPECIMEN(S). SPECIMEN CLINICAL URINE DRUG SCREEN VIAL [facility] Comment: [facility] Comment: ? Comment: [facility] Comment: To prevent further delays in testing and to resolve the questionable order please contact us immediately by visiting [email or web address], logging on to [place] [address] or by faxing your resolution to [phone]. NO COLLECTION DATE RECEIVED. WE HAVE USED THE DATE THE SPECIMEN WAS RECEIVED BY THIS LABORATORY THE COLLECTION DATE. IF THIS IS INCORRECT, PLEASE CONTACT CLIENT SERVICES. PHONE NUMBER: [phone] 11/17/2018 7:40 AM CDT 11/17/2018 7:40 AM CDT Narrative [facility] - 11/18/2018 9:19 AM CDT FASTING: UNKNOWN Resulting Agency Comment Performing Organization Information: ?Site ID: [place] ?Name: [facility] ?Address: [address] [address] ?Director: Alonso Greco D.O., MPH Vianey [facility] Final Result Performing Organization Address City/State/[facility] Co de Phone Number [facility] documented in this encounter Visit Diagnoses Not on filedocumented in this encounter Care Teams Watermaster Relationship Specialty Start Date End Date Vianey Meyer FNP [address] [place] [address] PCP - General Nurse Practitioner Family 06/21/1805/22/21 documented as of this encounter
--- OUTSIDE RECORDS SUMMARY | 2024-07-24 00:50 | XMS_ITS | Encounter Summary ---
Author Organization [facility] Address [address] [place] [address]. [place] [address] Care Team Providers Care Prisoner Classification Interviewer Name Role Phone Vianey Meyer Primary Care Provider [phone] Reason for Visit * Reason Comments Attention Deficit Disorder Anxiety Encounter Details Date Type Department Care Team (Late st Contact Info) Description 08/16/2018 3:00 PM MEDICAL CODING SPECIALIST Office Visit [facility] Medical Group Family & Internal Medicine [address] [phone] Vianey Meyer FNP [facility] [place], [place] [id number] Attention Deficit Disorder; Anxiety Social History Tobacco Use Types Packs/Day [...] Sign Reading Time Taken Comments Blood Pressure 113/64 08/16/2018 3:35 PM MEDICAL CODING SPECIALIST Pulse 74 08/16/2018 3:35 PM MEDICAL CODING SPECIALIST Temperature - - Respiratory Rate 16 08/16/2018 3:35 PM MEDICAL CODING SPECIALIST Oxygen Saturation 98% 08/16/2018 3:35 PM MEDICAL CODING SPECIALIST Inhaled Oxygen Concentration - - Weight 60.3 kg (133 lb) 08/16/2018 3:35 PM MEDICAL CODING SPECIALIST Height - - Body Mass Index 22.83 05/10/2018 10:50 AM CDT documented in this encounter Progress Notes * Vianey Meyer, BUTTON BUTTONHOLE MARKER - 08/16/2018 3:00 PM CST Office Progress Note Reason for Visit: Attention Deficit Disorder and Anxiety History of Present Illness: Karlie presents to the office to f/u on her anxiety and ADD. She has been getting her medication prescribed by Dr Bonita Pisano when needed. She just got a fill of her Adderall for 30 days (20mg) and 15days of her sleeping medicines refilled (eszopiclone) on 2018. We discussed that she cannot get these medications from different providers or pharmacies. She reports that she did not know that this was a problem. She reports that she has not been able to sleep and thinks that she needs something for depression. She recently had to move abruptly and got out of a relationship, unexpectedly dueto infidelity. She reports that she is very stressed. She denies SI or HI presently. She agrees to only come to this office for these medications and we discussed getting a controlled substance agreement and she is agreeable to this plan. ROS: Review of Systems Constitutional: Negative for chills, fever and weight loss. HENT: Negative for sore throat. Eyes: Negative for blurred vision. Respiratory: Negative for sputum production and shortness of breath. Cardiovascular: Negative for chest pain and leg swelling. Gastrointestinal: Negative for constipation, diarrhea, heartburn, nausea and vomiting. Genitourinary: Negative for dysuria and frequency. Musculoskeletal: Negative for falls, joint pain and myalgias. Neurological: Negative for weakness and headaches. Psychiatric/Behavioral: Positive for depression. Negative for substance abuse and suicidal ideas. The patient is nervous/anxious and has insomnia. Medications: No current outpatient medications on file prior to visit. No current facility-administered medications on file prior to visit. Allergies: Not on File Medical History: No past medical history on file. Surgical History: Past Surgical History: Procedure Laterality Date ??? APPENDECTOMY ??? BREAST LUMPECTOMY Left ??? [...] time. She appears well- developed and well-nourished. No distress. HENT: Head: Normocephalic and atraumatic. Right Ear: External ear normal. Left Ear: External ear normal. Nose: Nose normal. Mouth/Throat: Oropharynx is clear and moist. Eyes: Conjunctivae and EOM are normal. Pupils are equal, round, and reactive to light. Neck: Normal range of motion. Neck supple. No tracheal deviation present. No thyromegaly present. Cardiovascular: Normal rate, regular rhythm, normal heart sounds and intact distal pulses. Exam reveals no gallop and no friction rub. No murmur heard. Pulmonary/Chest: Effort normal and breath sounds normal. No respiratory distress. She has no wheezes. Abdominal: Soft. Bowel sounds are normal. She exhibits no distension and no mass. There is no tenderness. There is no rebound and no guarding. Musculoskeletal: Normal range of motion. She exhibits no tenderness or deformity. Lymphadenopathy: She has no cervical adenopathy. Neurological: She is alert and oriented to person, place, and time. She has normal reflexes. No cranial nerve deficit. Coordination normal. Skin: Skin is warm, dry and intact. No rash noted. She is not diaphoretic. No erythema. Psychiatric: Her behavior is normal. Thought content normal. Her mood appears anxious. Her speech is rapid and/or pressured. Cognition and memory are normal. She expresses impulsivity. Nursing note and vitals reviewed. Filed Vitals: 08/16/18 1535 BP: 113/64 Pulse: 74 Resp: 16 SpO2: 98% Weight: 60.3 kg (133 lb) Diagnoses/Impression: 1. Insomnia due to other mental disorder Eszopiclone (LUNESTA) 3 MG Tab CBC W/DIFF AUTOMATED LIPID PANEL TSH W/REFLEX VITAMIN D, 25 OH URINALYSIS WI REFLEX TO CULTURE URIC ACID BLOOD COMPREHENSIVE METABOLIC PANEL 2. Attention deficit disorder, unspecified hyperactivity presence methylphenidate ER (CONCERTA) 27 MG CR tablet CBC W/DIFF AUTOMATED LIPID PANEL TSH W/REFLEX VITAMIN D, 25 OH URINALYSIS WI REFLEX TO CULTURE URIC ACID BLOOD COMPREHENSIVE METABOLIC PANEL 3. Depression with anxiety lorazepam 0.5 MG tablet CBC W/DIFF AUTOMATED LIPID PANEL TSH W/REFLEX VITAMIN D, 25 OH URINALYSIS WI REFLEX TO CULTURE URIC ACID BLOOD COMPREHENSIVE METABOLIC PANEL 4. Generalized anxiety disorder buPROPion 75 MG tablet CBC W/DIFF AUTOMATED LIPID PANEL TSH W/REFLEX VITAMIN D, 25 OH URINALYSIS WI REFLEX TO CULTURE URIC ACID BLOOD COMPREHENSIVE METABOLIC PANEL Recommendations and Plan: 1. Insomnia due to other mental disorder - Eszopiclone (LUNESTA) 3 MG Tab; Take 3 mg by mouth nightly at bedtime. Take immediately before bedtime Dispense: 30 tablet; Refill: 2 - CBC W/DIFF AUTOMATED; Future - LIPID PANEL; Future - TSH W/REFLEX; Future - VITAMIN D, 25 OH; Future - URINALYSIS WI REFLEX TO CULTURE; Future - URIC ACID BLOOD; Future - COMPREHENSIVE METABOLIC PANEL; Future 2. Attention deficit disorder, unspecified hyperactivity presence - methylphenidate ER (CONCERTA) 27 MG CR tablet; Take 1 tablet (27 mg total) by mouth every morningfor 30 days. Dispense: 30 tablet; Refill: 0 - CBC W/DIFF AUTOMATED; Future - LIPID PANEL; Future - TSH W/REFLEX; Future - VITAMIN D, 25 OH; Future - URINALYSIS WI REFLEX TO CULTURE; Future - URIC ACID BLOOD; Future - COMPREHENSIVE METABOLIC PANEL; Future 3. Depression with anxiety - lorazepam 0.5 MG tablet; Take 1 tablet (0.5 mg total) by mouth daily for 10 days. Dispense: 20 tablet; Refill: 0 - CBC W/DIFF AUTOMATED; Future - LIPID PANEL; Future - TSH W/REFLEX; Future - VITAMIN D, 25 OH; Future - URINALYSIS WI REFLEX TO CULTURE; Future - URIC ACID BLOOD; Future - COMPREHENSIVE METABOLIC PANEL; Future 4. Generalized anxiety disorder - buPROPion 75 MG tablet; Take 1 tablet (75 mg total) by mouth 2 (two) times daily. Dispense: 60 tablet; Refill: 2 - CBC W/DIFF AUTOMATED; Future - LIPID PANEL; Future - TSH W/REFLEX; Future - VITAMIN D, 25 OH; Future - URINALYSIS WI REFLEX TO CULTURE; Future - URIC ACID BLOOD; Future - COMPREHENSIVE METABOLIC PANEL; Future Orders Placed This Encounter ??? CBC W/DIFF AUTOMATED ??? LIPID PANEL ??? TSH W/REFLEX ??? VITAMIN D, 25 OH ??? URINALYSIS WI REFLEX TO CULTURE ??? URIC ACID BLOOD ??? COMPREHENSIVE METABOLIC PANEL ??? DISCONTD: Eszopiclone 3 MG Tab ??? DISCONTD: modafinil 100 MG tablet ??? Eszopiclone (LUNESTA) 3 MG Tab ??? buPROPion 75 MG tablet ??? lorazepam 0.5 MG tablet ??? methylphenidate ER (CONCERTA) 27 MG CR tablet - Continue your current medications as directed and prescribed - F/U with your counselor as we discussed - call for any questions or concerns - Seek medical attention immediately for any thoughts or suicide or homicide - f/u in 1 month or sooner if needed -get your labs done as soon as you can, and we will call you with your results. PCP: EMANI KILGORE 08/22/2018 CAL CODING SPECIALIST documented in this encounter Plan of Treatment Upcoming Encounters Date Type Department Care Team (Late st Contact Info) Description 09/08/2024 10:10 AM MEDICAL CODING SPECIALIST Office Visit [facility] Medical Group Family Medicine - [place] [address] [place] [address] Samantha Sanders MD [address] [place], [place] [id number] documented as of this encounter Visit Diagnoses Diagnosis Insomnia due to other mental disorder- Primary Attention deficit disorder, unspecified hyperactivity presence Depression with anxiety Dysthymic disorder Generalized anxiety disorder documented in this encounter Care Teams Prisoner Classification Interviewer Relationship Specialty Start Date End Date Vianey Meyer FNP [address] [place] [address] PCP - General Nurse Practitioner Family 06/21/1805/22/21 documented as of this encounter
--- OUTSIDE RECORDS SUMMARY | 2024-07-24 00:50 | XMS_ITS | Encounter Summary ---
Author Organization [facility] Address [address] [place] [address]. [place] [address] Care Team Providers Care Web Analyst Name Role Phone Unavailable Primary Care Provider Unavailabl e Reason for Referral * Consultation/Treatment (Routine) - Closed Specialty Diagnoses / Procedures Referred By North t Referred To Contact Psychiatry Diagnoses Attention deficit disorder, unspecified hyperactivity presence Depression with anxiety Generalized anxiety disorder Vianey Meyer FNP [address] [place] [address] Phone: tel: fax: Referral ID Status Reason Start Date Expiration Date V isits Requested Visits Authorized [id number] Closed Specialty Services 06/14/2018 07/14/2019 1 1 T SHOP MANAGER Reason for Visit * Reason Onset Date Comments Medication Request 06/04/2018 Encounter Details Date Type Department Care Team (Late st Contact Info) Description 06/04/2018 Telephone [facility] Medical Group Family & Internal Medicine [facility] [address] [place] [address] Vianey Meyer FNP [address] [place], [place] [phone] Medication Request Social History Tobacco Use Types Packs/Day Years Used Date Smoking Tobacco: Never Assessed Comments Unknown Sex and Gender Information Value Date Recorded Sex Assigned at Not on file Legal Sex Female 4:47 PM CDT Gender Identity Not on file Sexual Orientation Not on file documented as of this encounter Progress Notes * Arti Perry RN - 06/14/2018 1:23 PM CSTAddended by: ARTI PERRY on: 06/14/2018 01:23 PM Modules accepted: Orders T SHOP MANAGER * Arti Perry RN - 06/14/2018 1:21 PM CST Patient is not due until 07/03/18 for adder[address] refill. Will place psychiatry referral at this time. T SHOP MANAGER * EMANI Crowder - 06/09/2018 2:29 PM CST Lets refer her to a psychiatrist We can prescribe her adderall immediate release 10mg bid dsp 60 no refills. T SHOP MANAGER * Arti Perry RN - 06/09/2018 12:22 PM CST Patient states that the vyvanse worked best for her but she cannot afford that medication. Patient states that the 10 mg Adderall immediate release is second best and more affordable for her. Patientstates that she see's a psychologist not a psychiatrist. T SHOP MANAGER * EMANI Crowder - 06/08/2018 10:49 AM CST So does she see a psychiatrist? And what medication works for her. We are not switching back and forth anymore. T SHOP MANAGER * Arti Perry RN - 06/08/2018 9:07 AM CST Patient states that she was unaware that changing pharmacies was something she wasn't supposed to be doing. Patient states that the only reason she switches pharmacies is due to the expense of the medication. Informed patient that she cannot get rx from two providers for the same type of medication. Patient voiced understanding. Patient states that she was only filling the medication frequently was due to switching medications to see what works. I informed patient that she will need [facility] and only fill there. Patient voiced understanding. T SHOP MANAGER * Arti Perry RN - 06/07/2018 10:44 AM CST Called patient. Patient was in the middle of explaining why this has occurred and she stated she had to call me back r/t receiving an important phone call. I did not get to inform the patient that she has to follow up with psychiatry. Will wait for patient to call back. T SHOP MANAGER * EMANI Crowder - 06/04/2018 4:00 PM CST She needs to f/u with her psychiatrist because she has had many fills in the last month from me andanother provider she is seeing. We looked in the [employer] prescription web monitoring and she should still have plenty of this medication according to her fills and dosing. We cannot override the pharmacy T SHOP MANAGER * Arti Perry RN - 06/04/2018 3:06 PM CST Received call from pharmacist Danni at [facility] in [place]. Danni states that she denied this patients Adderall refill due to suspicious activity on prescription monitoring web site. Danni states that patient has never filled her prescriptions at this location and it looks like she has been filling rx at multiple locations. Danni also states that patient has been filling rx with Dr. Lemus as well as you. Please advise. T SHOP MANAGER documented in this encounter Plan of Treatment Upcoming Encounters Date Type Department Care Team (Late st Contact Info) Description 09/08/2024 10:10 AM PRINT SHOP MANAGER Office Visit [facility] Medical Group Family Medicine - [place] [address] [place] [address] Samantha Sanders MD [address] [place] [address] Scheduled Referrals Name Type Priority Associated Diagnoses Orde r Schedule Ambulatory Referral to Psychiatry Referral Routine Attention deficit disorder, unspecified hyperactivity presence Depression with anxiety Generalized anxiety disorder Ordered: 06/14/2018 documented as of this encounter Visit Diagnoses Diagnosis Attention deficit disorder, unspecified hyperactivity presence- Primary Depression with anxiety Dysthymic disorder Generalized anxiety disorder documented in this encounter
--- OUTSIDE RECORDS SUMMARY | 2024-07-24 00:50 | XMS_ITS | Encounter Summary ---
Author Organization [facility] Address [address] [place] [address]. [place] [address] [place] [address] Care Team Providers Care Sewing Teacher Name Role Phone Vianey Meyer WELFARE PROJECT MANAGER Primary Care Provider Reason for Visit * Reason Comments Lab (SCAN) [facility] [place] B CT (SCAN) CT ABDOMEN/PELVIS W/ Encounter Details Date Type Department Care Team (Late Contact Info) Description 08/23/2018 Scan HEALTH INFO SRVCS Scanned, Documents Lab (SCAN) ([facility] LAB); CT (SCAN) (CT ABDOMEN/PELVIS W/) Social History Tobacco Use Types Packs/Day Years [...] (Late Contact Info) Description 09/08/2024 10:10 AM ASSOCIATE SALES Office Visit [facility] Medical Group Family Medicine - [place] [address] [place] [phone] Samantha Sanders MD [address] [place] [address] documented as of this encounter Procedures Procedure Name Priority Date/Time Associated Diagnosis Comments OUTSIDE LAB (SCAN ORDER) Routine 08/03/2018 documented in this encounter Results * OUTSIDE LAB (08/03/2018) 08/03/2018 us Documents Scanned SCANNING Final Result documented in this encounter Visit Diagnoses Not on filedocumented in this encounter Care Teams Sewing Teacher Relationship Specialty Start Date End Date Vianey Meyer FNP [address] [place] [address] PCP - General Nurse Practitioner Family 06/21/1805/22/21 documented as of this encounter
--- OUTSIDE RECORDS SUMMARY | 2024-07-24 00:50 | XMS_ITS | Encounter Summary ---
Author Organization [facility] Address [address] [place] [address]. [place], [place] [phone] [place], [place] [phone] Care Team Providers Care Office Automation Clerk Name Role Phone Unavailable Primary Care Provider Unavailabl e Encounter Details Date Type Department Care Team (Latest Contact Info) Description 04/21/2018 Abstract [facility] Medical [facility] , Generic ConversionMD Social History Tobacco Use Types Packs/Day Years Used Date Smoking Tobacco: Never Assessed Comments Unknown Sex and Gender Information Value Date Recorded Sex Assigned at Not on file Legal Sex Female 4:47 PM CDT Gender Identity Not on file Sexual Orientation Not on file documented as of this encounter Progress Notes * Generic Conversion MD Nito - 04/21/2018 12:19 PM CDT Message Recorded as Task Date: 04/20/2018 10:18 AM, Created By: Angi Leahy Task Name: Medical Complaint Callback Assigned To: S[facility]AN[facility] Nurse Team Regarding Patient: Karlie Ivory, Status: In Progress Comment: Angi Leahy - 20 Apr 2018 [...] medications. Is she sleeping better^2 Arti Perry - 20 Apr 2018 2:45 PM TASK IN PROGRESS Arti Perry - 20 Apr 2018 2:49 PM TASK REPLIED TO: Previously Assigned To [facility] [place] [place] Nurse Team patient states that she has already taken 2 tablets (36mg) daily for the last two days and is stillfeeling increased fatigue. patient states that she is sleeping better at night. Vianey Meyer - 21 Apr 2018 11:56 AM TASK EDITED we can stop the concerta and try Provigil 100mg daily and see if this helps. We also should think about getting a sleep study on her. She should f/u 2 weeks after starting the Provigil, so we can seeif we need any adjustments in her medication. Arti Perry - 21 Apr 2018 12:28 PM TASK EDITED new rx sent to pharmacy. patient informed with understanding voiced. sleep study ordered. patient prefers to wait until May to do sleep study. patient scheduled with Vianey on 05/05/18. Plan 1. Modafinil 100 MG Oral Tablet (Provigil); TAKE 1 TABLET DAILY Rx By: Vianey Meyer; Dispense: 30 Days ; #:30 Tablet; Refill: 0; For: ADD (attention deficit disorder); ORALIA = N; Call Rx; Last Updated By: Arti Perry; 04/21/2018 12:26:27 PM 2. Schedule Sleep Study Outpatient Follow-up Status: Hold For - Scheduling Requested for: 24May2018 Ordered; For: Fatigue, Insomnia; Ordered By: Vianey Meyer Performed: Order Comments: patient wants to wait to do this until may. Due: 07Jun2018; Last Updated By: Arti Perry; 04/21/2018 12:27:22 PM Signatures Electronically signed by : Arti Perry, ; Apr 21 2018 12:28PM IN ROOM DINING SERVER (Author) documented in this encounter Plan of Treatment Upcoming Encounters Date Type Department Care Team (Late st Contact Info) Description 09/08/2024 10:10 AM IN ROOM DINING SERVER Office Visit [facility] Medical Group Family Medicine [facility] [address] [place] [address] Samantha Sanders MD [address] [place], [place] [address] documented as of this encounter Visit Diagnoses Not on filedocumented in this encounter
--- OUTSIDE RECORDS SUMMARY | 2024-07-24 00:50 | XMS_ITS | Encounter Summary ---
Author Organization [facility] Address [address] [place] [address]. [place], [place] [phone] [place] [address] Care Team Providers Care Carpenter Streetcar Name Role Phone Vianey Meyer EMANI Primary Care Provider [phone] Reason for Visit * Reason Comments Generic Orders (SCAN) [facility] RX GUT DROPPER Encounter Details Date Type Department Care Team (Late Contact Info) Description 09/10/2018 Scan HEALTH INFO SRVCS Scanned, Documents Generic Orders (SCAN) ([facility] RX GUT DROPPER) Social History Tobacco Use Types Packs/Day Years [...] (Late Contact Info) Description 09/08/2024 10:10 AM SEMICONDUCTOR PACKAGES SEALER Office Visit [facility] Medical Group Family Medicine - [place] [address] [place] [phone] Samantha Sanders MD [address] [place] [phone] documented as of this encounter Visit Diagnoses Not on filedocumented in this encounter Care Teams Carpenter Streetcar Relationship Specialty Start Date End Date Vianey Meyer FNP [address] [place] [address] PCP - General Nurse Practitioner Family 06/21/1805/22/21 documented as of this encounter
--- OUTSIDE RECORDS SUMMARY | 2024-07-24 00:50 | XMS_ITS | Encounter Summary ---
Author Organization [facility] Address [address] [place] [address]. [place], [place] [phone] [place] [address] Care Team Providers Care Body Wirer Name Role Phone Vianey Meyer OIL SPRAYER Primary Care Provider [phone] Reason for Visit * Reason Comments Lab (SCAN) Encounter Details Date Type Department Care Team (Latest Contact Info) Description 09/02/2018 Scan HEALTH INFO SRVCS Scanned, Documents Lab [...] (Late Contact Info) Description 09/08/2024 10:10 AM DIRECTOR OF TRAINING Office Visit [facility] Medical Group Family Medicine - [place] [address] [place] [phone] Samantha Sanders MD [address] [place], [place] [phone] documented as of this encounter Procedures Procedure Name Priority Date/Time Associated Diagnosis Comments OUTSIDE LAB (SCAN ORDER) Routine 09/02/2018 documented in this encounter Results * OUTSIDE LAB (09/02/2018) 09/02/2018 us Documents Scanned SCANNING Edited Result - Final documented in this encounter Visit Diagnoses Not on filedocumented in this encounter Care Teams Body Wirer Relationship Specialty Start Date End Date Vianey Meyer FNP [address] [place] [address] PCP - General Nurse Practitioner Family 06/21/1805/22/21 documented as of this encounter
--- OUTSIDE RECORDS SUMMARY | 2024-07-24 00:50 | XMS_ITS | Encounter Summary ---
Author Organization [facility] Address [address] [place] [address]. [place] [id number] [place], [place] [phone] Care Team Providers Care Corporate Planner Name Role Phone Vianey Meyer Primary Care Provider [phone] Reason for Visit * Reason Onset Date Comments Prior Authorization 09/10/2018 Encounter Details Date Type Department Care Team (Late st Contact Info) Description 09/10/2018 Telephone [facility] Medical Group Family & Internal Medicine [place] [address] [place] [address] Vianey Meyer FNP [facility] [place] [address] Prior Authorization Social History Tobacco [...] Progress Notes * Alanna Almaguer MA - 09/15/2018 3:04 PM CST P/a submitted, patient could not tolerate concerta or adderall -sjs ICAL BIOSTATISTICIAN * Angi J Armond - 09/10/2018 10:12 AM CST Pt took vyvanse to [facility] and they told her that PA would be needed for this. ICAL BIOSTATISTICIAN documented in this encounter Plan of Treatment Upcoming Encounters Date Type Department Care Team (Late st Contact Info) Description 09/08/2024 10:10 AM CLINICAL BIOSTATISTICIAN Office Visit [facility] Medical Group Family Medicine - [place] [address] [facility] [address] [place] [address] Samantha Sanders MD [address] [place] [address] documented as of this encounter Visit Diagnoses Not on filedocumented in this encounter Care Teams Corporate Planner Relationship Specialty Start Date End Date Vianey Meyer FNP [address] [place] [address] PCP - General Nurse Practitioner Family 06/21/1805/22/21 documented as of this encounter
--- OUTSIDE RECORDS SUMMARY | 2024-07-24 00:50 | XMS_ITS | Encounter Summary ---
Author Organization [facility] Address [address] [place] [address]. [place] [id number] [place], [place] [id number] Care Team Providers Care Retail Zone Specialist Name Role Phone Vianey Meyer Primary Care Provider [phone] Reason for Visit * Reason Onset Date Comments Medication Problem 11/15/2018 adderall Encounter Details Date Type Department Care Team (Late st Contact Info) Description 11/15/2018 Telephone [facility] Family & Internal Medicine [facility] [address] [place] [address] Vianey Meyer FNP [address] [place] [address] Medication Problem (adderall) Social History Tobacco Use Types Packs/Day [...] Progress Notes * Alanna Almaguer MA - 11/16/2018 8:24 AM CDT Patient states that she has the November rx for the 30mg but it isnt able to be filled yet. Requesting 5mg to get her through until November rx can be filled. Will come in for UDS and sign contract, Please advise -sjs * Alanna Almaguer MA - 11/15/2018 5:16 PM CDT [id number] * EMANI Crowder - 11/15/2018 5:12 PM CDT I think that the adderall might be causing her insomnia. She needs to come in and sign a contract and get a urine drug screen for her chart due to our controlled substance agreement. Does she still have her prescription for November? That was 30mg * Sneha Batista - 11/15/2018 4:03 PM CDT She stated that she thinks since you have lowered her dose that she has not been able to sleep and would like you to up it back up to 30 MG. She also stated that she would like this sent to [facility] and [facility] pharmacy. * Sneha Batista - 11/15/2018 3:54 PM CDT Patient came in asking if this could get addressed today. She stated that she might be losing her insurance soon. * Christi Randle RRT - 11/15/2018 1:28 PM CDT Pt does not like the 25mg adderall and would like 5mg sent to pharmacy to get back to 30 mg total. documented in this encounter Plan of Treatment Upcoming Encounters Date Type Department Care Team (Late st Contact Info) Description 09/08/2024 10:10 AM INSTALLATION SERVICE REPRESENTATIVE Office Visit [facility] Family Medicine - [place] [address] [place] [address] Samantha Sanders MD [address] [place] [address] documented as of this encounter Visit Diagnoses Not on filedocumented in this encounter Care Teams Retail Zone Specialist Relationship Specialty Start Date End Date Vianey Meyer FNP [facility] [place] [address] PCP - General Nurse Practitioner Family 06/21/1805/22/21 documented as of this encounter
--- OUTSIDE RECORDS SUMMARY | 2024-07-24 01:05 | XMS_ITS | Clinical Summary ---
Author Organization [facility] Address [address] [place] [id number] Care Team Providers Care Sales Representative [facility] Name Role Phone No, Physician Primary Care Provider [phone] Allergies No known active allergies Medications naproxen (NAPROSYN) 500 mg tablet Take 1 tablet (500 mg total) by mouth 2 (two) times a day with meals 30 tablet 09/06/2023 Active cyclobenzaprine (FLEXERIL) 10 mg tablet Take 1 tablet (10 mg total) by mouth 2 (two) times a day as needed for muscle spasms 12 tablet 09/06/2023 Active Social History Tobacco Use Types Packs/Day Years Used Date Smoking Tobacco: Never Assessed Personal Safety Answer Date Recorded Have you ever been in or are you currently in a harmful physical or emotional relationship or is someone making you feel afraid or unsafe? Denies 09/06/2023 Comments No Sex and Gender Information Value Date Recorded Sex Assigned at Not on file Legal Sex Female 9:26 AM BUSINESS MANAGEMENT MANAGER Gender Identity Not on file Sexual Orientation Not on file Obstetrics History Last Filed Vital Signs Vital Sign Reading Time Taken Comments Blood Pressure 117/75 09/06/2023 2:30 PM BUSINESS MANAGEMENT MANAGER Pulse 78 09/06/2023 2:37 PM BUSINESS MANAGEMENT MANAGER Temperature 36.9 ??C (98.4 ??F) 09/06/2023 12:[address] Respiratory Rate 18 09/06/2023 12:15 PM BUSINESS MANAGEMENT MANAGER Oxygen Saturation 97% 09/06/2023 2:37 PM BUSINESS MANAGEMENT MANAGER Inhaled Oxygen Concentration - - Weight 68.2 kg (150 lb 5.7 oz) 09/06/2023 12:15 PM BUSINESS MANAGEMENT MANAGER Height 162.6 cm (5' 4 ) 09/06/2023 12:15 PM BUSINESS MANAGEMENT MANAGER Body Mass Index 25.81 09/06/2023 12:15 PM BUSINESS MANAGEMENT MANAGER Plan of Treatment Health Maintenance Due Date Last Done Comments Breast Cancer Screening-Mammogram 1975 Colon Cancer Screening-Colonoscopy 1975 Depression Screening 1975 Hepatitis C Screening 1975 Hepatitis B Screening 1993 Regular Well Visit/Exam 18-64 1993 Covid-19 Vaccine ( season) 2024 03/18/2021, 02/07/2021 Influenza Vaccine (#1) 2024 05/23/2021, 2019 DTaP/Tdap/Td Vaccine (3 - Td or Tdap) 05/23/2031 05/23/2021, 08/10/2017, 07/20/2003, Additional history exists Pneumococcal vaccine <65 Aged Out No longer eligible based on patient's age to complete this topic Insurance IDPA Care Teams Sales Representative [facility] Relationship Specialty Start Date End Date No, Physician PCP - General 09/06/23
--- OUTSIDE RECORDS SUMMARY | 2024-07-24 01:06 | XMS_ITS | Encounter Summary ---
Author Organization [facility] Healthcare Address [facility] [place] [address] Care Team Providers Care Acetone Recovery Worker Name Role Phone Unavailable Primary Care Provider Unavailabl e Encounter Details Date Type Department Care Team (Latest Contact Info) Description 08/23/2018 12:05 PM BUSINESS EXCELLENCE MANAGER - 08/23/2018 12:35 PM BUSINESS EXCELLENCE MANAGER Hospital Encounter [facility] Emergency Department [address] [place] [address] Discharge Disposition: Left Against Medical Advice Social History Tobacco Use Types Packs/Day Years Used Date Smoking Tobacco: Never Assessed Comments Unknown Sex and Gender Information Value Date Recorded Sex Assigned at Not on file Legal Sex Female 9:26 AM BUSINESS EXCELLENCE MANAGER Gender Identity Not on file Sexual Orientation Not on file documented as of this encounter Last Filed Vital Signs Vital Sign Reading Time Taken Comments Blood Pressure 107/72 08/23/2018 12:09 PM BUSINESS EXCELLENCE MANAGER Pulse 114 08/23/2018 12:09 PM BUSINESS EXCELLENCE MANAGER Temperature 36.8 ??C (98.3 ??F) 08/23/2018 1 2:09 PM BUSINESS EXCELLENCE MANAGER Respiratory Rate - - Oxygen Saturation 100% 08/23/2018 12: 09 PM BUSINESS EXCELLENCE MANAGER Inhaled Oxygen Concentration - - Weight 61.1 kg (134 lb 11.2 oz) 019 12:09 PM BUSINESS EXCELLENCE MANAGER Height 162.6 cm (5' 4 ) 08/23/2018 12:0 9 PM BUSINESS EXCELLENCE MANAGER Body Mass Index 23.12 08/23/2018 12:09 PM BUSINESS EXCELLENCE MANAGER documented in this encounter Discharge Disposition Disposition Code Departure Means Destination Left Against Medical Advice documented in this encounter Plan of Treatment Not on file documented as of this encounter Visit Diagnoses Not on filedocumented in this encounter
--- OUTSIDE RECORDS SUMMARY | 2024-07-24 01:06 | XMS_ITS | Encounter Summary ---
Author Organization [facility] Healthcare Address [address] [place] [id number] Care Team Providers Care Circuit Board Drafter Name Role Phone No, Physician Primary Care Provider [phone] Reason for Visit * Reason Comments Fall Facial Swelling Encounter Details Date Type Department Care Team (Late st Contact Info) Description 09/06/2023 2:09 PM DISABILITIES CAREGIVER - 09/06/2023 3:03 PM DISABILITIES CAREGIVER Emergency [facility] Emergency Department [address] [place] [address] Concussion without loss of consciousness, initial encounter (Primary Dx); Acute midline low back pain without sciatica; Pain, dental Discharge Disposition: Discharge to home or self care Social History Tobacco Use Types Packs/Day Years [...] on file Legal Sex Female 9:26 AM DISABILITIES CAREGIVER Gender Identity Not on file Sexual Orientation Not on file documented as of this encounter Last Filed Vital Signs Vital Sign Reading Time Taken Comments Blood Pressure 117/75 09/06/2023 2:30 PM DISABILITIES CAREGIVER Pulse 78 09/06/2023 2:37 PM DISABILITIES CAREGIVER Temperature 36.9 ??C (98.4 ??F) 09/06/2023 12:[address] Respiratory Rate 18 09/06/2023 12:15 PM DISABILITIES CAREGIVER Oxygen Saturation 97% 09/06/2023 2:37 PM DISABILITIES CAREGIVER Inhaled Oxygen Concentration - - Weight 68.2 kg (150 lb 5.7 oz) 09/06/2023 12:15 PM DISABILITIES CAREGIVER Height 162.6 cm (5' 4 ) 09/06/2023 12:15 PM DISABILITIES CAREGIVER Body Mass Index 25.81 09/06/2023 12:15 PM DISABILITIES CAREGIVER documented in this encounter Discharge Instructions * Discharge Instructions* Susy Whitfield NP - 09/06/2023 2:55 PM DISABILITIES CAREGIVER Please follow up with your primary care physician, as soon as possible, and ideally within 3 days. Follow up with your dentist [facility].Please take any new medications as prescribed. Please return to theemergency department for worsening of your symptoms or any new problems which may arise. It is mandatory that you follow up, as recommended, with a primary care physician or specialist, per your discharge paperwork.You have received emergency care only at your visit today, an this is nota substitute for ongoing care, further evaluation, or treatment. Therefore, follow-up as directed is not optional, but mandatory. This ensures that any incidental abnormal radiographic and laboratoryfindings are evaluated appropriately. Return immediately for any new symptoms, worsening of symptoms, or persistent symptoms. We are open09/02 and will take care of you. BILITIES CAREGIVER * Attachments The following attachments cannot be sent through Care Everywhere. * Concussion (AfterCare(R) Instructions(ER/ED)) ([place]) * Back Pain (AfterCare(R) Instructions(ER/ED)) ([place]) * Toothache (AfterCare(R) Instructions(ER/ED)) ([place]) documented in this encounter Medications at Time of Discharge cyclobenzaprine (FLEXERIL) 10 mg tablet Take 1 tablet (10 mg total) by mouth 2 (two) times a day as needed for muscle spasms 12 tablet 09/06/2023 naproxen (NAPROSYN) 500 mg tablet Take 1 tablet (500 mg total) by mouth 2 (two) times a day with meals 30 tablet 09/06/2023 amoxicillin (AMOXIL) 875 mg tablet Take 1 tablet (875 mg total) by mouth 2 (two) times a day for 10 days 20 tablet 09/06/2023 09/16/2023 documented as of this encounter Ordered Prescriptions Prescription Sig Dispense Quantity Refills Last Filled Start Date End Date cyclobenzaprine (FLEXERIL) 10 mg tablet Take 1 tablet (10 mg total) by mouth 2 (two) times a day as needed for muscle spasms 12 tablet 09/06/2023 naproxen (NAPROSYN) 500 mg tablet Take 1 tablet (500 mg total) by mouth 2 (two) times a day with meals 30 tablet 09/06/2023 amoxicillin (AMOXIL) 875 mg tablet Take 1 tablet (875 mg total) by mouth 2 (two) times a day for 10 days 20 tablet 09/06/2023 09/16/2023 documented in this encounter Discharge Disposition Disposition Code Departure Means Destination Comment s Discharge to home or self care documented in this encounter ED Notes * Susy Whitfield NP - 09/06/2023 2:45 PM CST Images from the original note were not included. CHIEF COMPLAINT: Chief Complaint Patient presents with Fall Facial Swelling HPI 2:55 PM Karlie Ivory is a 48 y.o. female presenting to the ED c/o slipping on the ice Thursday while out of town for work. Reports hitting head, unsure of LOC, nausea and headache. Low back pain and then today woke up with dental pain and left side facial swelling. States that she believed she knocked the filling out of her tooth with the fall. Denies numbness/tingling or weakness to extremities. Reports being very sleepy today and just feeling out of it PCP: No, Physician PAST MEDICAL HISTORY No past medical history on file. PAST SURGICAL HISTORY No past surgical history on file. FAMILY HISTORY No family history on file. MEDICATIONS GIVEN IN THE ED Medications ketorolac (TORADOL) 30 mg/mL (1 mL) injection 30 mg (30 mg intramuscular Given 09/06/23 1435) CURRENT HOME MEDICATIONS No current facility-administered medications for this encounter. Current Outpatient Medications: amoxicillin (AMOXIL) 875 mg tablet, Take 1 tablet (875 mg total) by mouth 2 (two) times a day for 10 days, Disp: 20 tablet, Rfl: 0 cyclobenzaprine (FLEXERIL) 10 mg tablet, Take 1 tablet (10 mg total) by mouth 2 (two) times a day as needed for muscle spasms, Disp: 12 tablet, Rfl: 0 naproxen (NAPROSYN) 500 mg tablet, Take 1 tablet (500 mg total) by mouth 2 (two) times a day with meals, Disp: 30 tablet, Rfl: 0 ALLERGIES No Known Allergies SOCIAL HISTORY Social History Tobacco Use Smoking status: Not on file Smokeless tobacco: Not on file Substance and Sexual Activity Drug use: Not on file Sexual activity: Not on file Alcohol Use: Unknown (08/16/2018) Received from [facility] AUDIT-C Frequency of Alcohol Consumption: 2-4 times a month Average Number of Drinks: Not on file Frequency of Binge Drinking: Not on file PHYSICAL EXAM TRIAGE VITAL SIGNS: ED Triage Vitals [09/06/23 1215] Temp Pulse Resp BP SpO2 36.9 ??C (98.4 ??F) 95 18 137/88 98 % Temp src Heart Rate Source Patient Position BP Location FiO2 (%) Oral -- -- -- -- Height Height Method Weight Weight Method 1.626 m (5' 4 ) Stated 68.2 kg (150 lb 5.7 oz) -- Physical Exam Vitals and nursing note reviewed. Constitutional: General: She is not in acute distress. Appearance: Normal appearance. She is not ill-appearing or toxic-appearing. HENT: Head: Normocephalic and atraumatic. Mouth/Throat: Mouth: Mucous membranes are moist. Dentition: Dental tenderness and gingival swelling present. Eyes: Extraocular Movements: Extraocular movements intact. Pupils: Pupils are equal, round, and reactive to light. Cardiovascular: Rate and Rhythm: Normal rate and regular rhythm. Heart sounds: Normal heart sounds. No murmur heard. No friction rub. No gallop. Pulmonary: Effort: Pulmonary effort is normal. Breath sounds: Normal breath sounds. Abdominal: General: Bowel sounds are normal. There is no distension. Palpations: Abdomen is soft. There is no mass. Tenderness: There is no abdominal tenderness. There is no guarding. Musculoskeletal: General: No deformity. Normal range of motion. Cervical back: Normal range of motion and neck supple. Tenderness (right and left side of neck) present. Skin: General: Skin is warm and dry. Capillary Refill: Capillary refill takes less than 2 seconds. Findings: No bruising. Neurological: General: No focal deficit present. Mental Status: She is alert and oriented to person, place, and time. Sensory: No sensory deficit. Motor: No weakness. Gait: Gait normal. Psychiatric: Mood and Affect: Mood normal. LABS Labs Reviewed - No data to display RADIOLOGY Impression: Interpreted by radiologist and reviewed by this provider EXAM DESCRIPTION: XR SPINE LUMBAR 2 OR 3 VIEWS REASON FOR STUDY: pain Slipped on ice 2 days ago, landed on back and hit back of head. No LOC, presents today with headache, not thinking clearly, low back pain and left facial swelling. TECHNIQUE: 3 radiographic view(s) of the lumbar spine. COMPARISON: None available. FINDINGS: ALIGNMENT: Mild levoconvex curvature of the lumbar spine with apex at L1-L2. Transitional anatomy is seen at the lumbosacral junction with partial sacralization of L5. VERTEBRAE: Vertebral bodies of normal height. No acute fracture. Dojp-iv-sifgtmqg facet arthropathy within the lower lumbar spine. DISCS: Mild intervertebral disc height loss at L4-L5. The remaining lumbar disc spaces are maintained. SOFT TISSUES: Within normal limits. IMPRESSION: 1. No acute spinal abnormality. 2. 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 Recommend close attention to numbering system prior to any future interventions. 3. Tdee-hh-xscwhzqw multilevel lumbar spondylosis; as detailed. THIS IS AN ELECTRONICALLY VERIFIED FINAL REPORT 09/06/2023 1:42 PM - Electronically signed by Gary Munson M.D. MF: DEN Report ID: [id number] Reading Location: [id number] Specimen Collected: 09/06/23 13:40 Last Resulted: 09/06/23 13:42 EXAM DESCRIPTION: CT CERVICAL SPINE WO CONTRAST REASON FOR STUDY: Neck trauma, uncomplicated (NEXUS/CCR neg) (Age < 65y) Slipped on ice 2 days ago, landed on back and hit back of head. No LOC, presents today with headache, not thinking clearly, low back pain and left facial swelling. Emesis last pm TECHNIQUE: Axial images through the cervical spine with sagittal and coronal reformatted images. Automated exposure control was used as a dose optimization technique for this examination. COMPARISON: None available. FINDINGS: ALIGNMENT: Normal. VERTEBRAE: No acute fracture. Vertebral body heights well-maintained. DISCS: Xwqm-vx-ukdfppia intervertebral disc height loss at C5-C6 and C6-C7 with associated osteophyte formation. The remaining intervertebral disc heights are maintained. No significant osseous spinal canal or foraminal stenosis. HARDWARE: None in the spine. SKULL BASE: No significant finding. LUNG APICES: No significant abnormality. NECK SOFT TISSUES: No significant abnormality. OTHER: No other significant findings. IMPRESSION: 1. No acute osseous abnormality. 2. Eiae-tv-ensneldx multilevel cervical spondylosis; as detailed. THIS IS AN ELECTRONICALLY VERIFIED FINAL REPORT 09/06/2023 1:40 PM - Electronically signed by Gary Munson M.D. MF: DEN Report ID: [id number] Reading Location: [id number] Specimen Collected: 09/06/23 13:32 Last Resulted: 09/06/23 13:40 EXAM DESCRIPTION: CT HEAD WO CONTRAST REASON FOR STUDY: Head trauma, abnormal mental status (Age 19-64y), stroke alert patient Slipped on ice 2 days ago, landed on back and hit back of head. No LOC, presents today with headache, not thinking clearly, low back pain and left facial swelling. Emesis last pm TECHNIQUE: Axial images acquired through the brain without intravenous contrast. Images stored on PACS. Automated exposure control was used as a dose optimization technique for this examination. COMPARISON: None available. FINDINGS: BRAIN: No hemorrhage, edema or mass effect. No recent infarct. Normal white matter. EXTRA-AXIAL SPACES: No fluid collections. No masses. CALVARIUM: No fracture. SINUSES/MASTOIDS: No fluid or mucosal thickening. ORBITS: No significant abnormality. OTHER: No other significant abnormality. IMPRESSION: No acute intracranial findings. THIS IS AN ELECTRONICALLY VERIFIED FINAL REPORT 09/06/2023 1:32 PM - Electronically signed by Gary Munson M.D. MF: DEN Report ID: [id number] Reading Location: [id number] Specimen Collected: 09/06/23 13:26 Last Resulted: 09/06/23 13:32 EKG N/A ED COURSE/MEDICAL DECISION MAKING Differential diagnosis included but not limited to intracranial bleed, concussion, hematoma, back strain, contusion Images negative for acute findings. Patient stable for discharge with instruction to follow up withPCP in 3 days and with dentist regarding dental pain. She verbalizes understanding and agreement with plan of care Patient's medical records were reviewed. Procedures FINAL IMPRESSION Concussion without loss of consciousness, initial encounter Acute midline low back pain without sciatica Pain, dental DISPOSITION: Home All findings were discussed with patient. Pt agreeable with plan. Non toxic appearing, vitals stable. Patient stable for discharge home. Given return to ER precautions Close outpatient follow-up with a low threshold to return has been mandated, concerning symptoms have been emphasized in detail, and this patient expresses understanding PATIENT INSTRUCTED TO FOLLOW UP No, Physician [phone] In 3 days DISCHARGE MEDICATIONS Your medication list START taking these medications Instructions Last Dose Given Next Dose Due amoxicillin 875 mg tablet Commonly known as: AMOXIL 875 mg, oral, 2 times daily cyclobenzaprine 10 mg tablet Commonly known as: FLEXERIL 10 mg, oral, 2 times daily PRN naproxen 500 mg tablet Commonly known as: NAPROSYN 500 mg, oral, 2 times daily with meals (bkfst, dinner) Where to Get Your Medications You can get these medications from any pharmacy Bring a paper prescription for each of these medications amoxicillin 875 mg tablet cyclobenzaprine 10 mg tablet naproxen 500 mg tablet This examination was transcribed using the [employer] voice recognition system without human adventure guide. In an effort to expedite patient care, this report has not been adjusted for typographical, grammatical, and syntax by a trained medical hospital sales. Susy Whitfield NP 09/06/23 [id number] Cosigned by Jake Luu MD at 09/06/2023 5:38 PM DISABILITIES CAREGIVER BILITIES CAREGIVER BILITIES CAREGIVER Associated attestation - Jake Luu MD - 09/06/2023 5:38 PM DISABILITIES CAREGIVER ED Attestation This patient was independently evaluated by the APC. I was available for immediate consultation andin-person evaluation if required but was not asked to do so. * Naomi Huang RN - 09/06/2023 12:13 PM CST Slipped on ice 2 days ago, landed on back and hit back of head. No LOC, presents today with headache, not thinking clearly, low back pain and left facial swelling. Emesis last pm BILITIES CAREGIVER documented in this encounter Plan of Treatment Not on file documented as of this encounter Procedures Procedure Name Priority Date/Time Associated Diagnosis Comments XR SPINE LUMBAR 2 OR 3 VIEWS ED 09/06/2023 1:[address] CERVICAL SPINE WO CONTRAST ED 09/06/2023 1:[address] HEAD WO CONTRAST ED 09/06/2023 1 :16 PM DISABILITIES CAREGIVER documented in this encounter Results * XR Spine Lumbar 2 or 3 Views (09/06/2023 1:24 PM DISABILITIES CAREGIVER) Anatomical Region Laterality Modality Spine N/A Computed Radiogr aphy 09/06/2023 1:40 PM DISABILITIES CAREGIVER Narrative 09/06/2023 1:42 PM DISABILITIES CAREGIVER EXAM DESCRIPTION: XR SPINE LUMBAR 2 OR 3 VIEWS REASON FOR STUDY: pain ?? Slipped on ice 2 days ago, landed on back and hit back of head. No LOC, presents today with headache, not thinking clearly, low back pain and left facial swelling. ?? TECHNIQUE: 3 ??radiographic view(s) of the ??lumbar ??spine. COMPARISON: None available. FINDINGS: ALIGNMENT: Mild levoconvex curvature of the lumbar spine with apex at L1-L2. ??Transitional anatomy is seen at the lumbosacral junction with partial sacralization of L5. VERTEBRAE: Vertebral bodies of normal height. No acute fracture. ?? Tmxp-fo-wfkmoswb facet arthropathy within the lower lumbar spine. DISCS: Mild intervertebral disc height loss at L4-L5. ??The remaining lumbar disc spaces are maintained. SOFT TISSUES: Within normal limits. ?? IMPRESSION: 1. ?? No acute spinal abnormality. 2. 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 ?? Recommend close attention to numbering system prior to any future interventions. 3. ??Kcbf-tn-kqejrvfp multilevel lumbar spondylosis; as detailed. THIS IS AN ELECTRONICALLY VERIFIED FINAL REPORT 09/06/2023 1:42 PM - Electronically signed by ??Gary Munson M.D. MF: DEN D: ??09/06/2023 1:42 PM T: ??09/06/2023 1:42 PM Report ID: [id number] Reading Location: ??[id number] Procedure Note Gary Munson, DO - 09/06/2023 EXAM DESCRIPTION: XR SPINE LUMBAR 2 OR 3 VIEWS REASON FOR STUDY: pain Slipped on ice 2 days ago, landed on back and hit back of head. No LOC, presents today with headache, not thinking clearly, low back pain and left facial swelling. TECHNIQUE: 3 radiographic view(s) of the lumbar spine. COMPARISON: None available. FINDINGS: ALIGNMENT: Mild levoconvex curvature of the lumbar spine withapex at L1-L2. Transitional anatomy is seen at the lumbosacral junction with partial sacralization of L5. VERTEBRAE: Vertebral bodies of normal height. No acute fracture. Itbm-li-mpfunyig facet arthropathy within the lower lumbar spine. DISCS: Mild intervertebral disc height loss at L4-L5. The remaininglumbar disc spaces are maintained. SOFT TISSUES: Within normal limits. IMPRESSION: 1. No acute spinal abnormality. 2. 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 Recommend close attention to numbering system prior to any future interventions. 3. Nxam-fy-mawtqbri multilevel lumbar spondylosis; as detailed. THIS IS AN ELECTRONICALLY VERIFIED FINAL REPORT 09/06/2023 1:42 PM - Electronically signed by Gary CRENSHAW Report ID: [id number] Reading Location: [id number] Susy Whitfield [facility] IMG XR PROCEDURES Final Result * CT Cervical Spine WO Contrast (09/06/2023 1:16 PM DISABILITIES CAREGIVER) Anatomical Region Laterality Modality Spine N/A Computed Tomogra phy 09/06/2023 1:32 PM DISABILITIES CAREGIVER Narrative 09/06/2023 1:40 PM DISABILITIES CAREGIVER EXAM DESCRIPTION: ?? CT CERVICAL SPINE WO CONTRAST REASON FOR STUDY: ?? Neck trauma, uncomplicated (NEXUS/CCR neg) (Age < 65y) ?? Slipped on ice 2 days ago, landed on back and hit back of head. No LOC, presents today with headache, not thinking clearly, low back pain and left facial swelling. Emesis last pm ? TECHNIQUE: Axial images through the cervical spine with sagittal and coronal reformatted images. Automated exposure control was used as a dose optimization technique for this examination. COMPARISON: ?? None available. FINDINGS: ALIGNMENT: ?? Normal. VERTEBRAE: ?? No acute fracture. ??Vertebral body heights well-maintained. DISCS: ?? Myez-xx-nrvxelkr intervertebral disc height loss at C5-C6 and C6-C7 with associated osteophyte formation. ??The remaining intervertebral disc heights are maintained. ??No significant osseous spinal canal or foraminal stenosis. HARDWARE: ?? None in the spine. SKULL BASE: ?? No significant finding. LUNG APICES: ?? No significant abnormality. NECK SOFT TISSUES: ?? No significant abnormality. OTHER: ?? No other significant findings. IMPRESSION: 1. ?? No acute osseous abnormality. 2. ??Wlyc-fb-qnkcmedy multilevel cervical spondylosis; as detailed. THIS IS AN ELECTRONICALLY VERIFIED FINAL REPORT 09/06/2023 1:40 PM - Electronically signed by ??Gary CRENSHAW: DEN D: ??09/06/2023 1:40 PM T: ??09/06/2023 1:40 PM Report ID: [id number] Reading Location: ??[id number] Procedure Note Gary Munsonory, DO - 09/06/2023 EXAM DESCRIPTION: CT CERVICAL SPINE WO CONTRAST REASON FOR STUDY: Neck trauma, uncomplicated (NEXUS/CCR neg) (Age < 65y) Slipped on ice 2 days ago, landed on back and hit back of head. No LOC, presents today with headache, not thinking clearly, low back pain and left facial swelling. Emesis last pm TECHNIQUE: Axial images through the cervical spine with sagittal andcoronal reformatted images. Automated exposure control was used as a doseoptimization technique for this examination. COMPARISON: None available. FINDINGS: ALIGNMENT: Normal. VERTEBRAE: No acute fracture. Vertebral body heights well-maintained. DISCS: Eqnn-ok-shodgufp intervertebral disc height loss at C5-C6 andC6-C7 with associated osteophyte formation. The remaining intervertebral disc heights are maintained. No significant osseous spinal canal or foraminal stenosis. HARDWARE: None in the spine. SKULL BASE: No significant finding. LUNG APICES: No significant abnormality. NECK SOFT TISSUES: No significant abnormality. OTHER: No other significant findings. IMPRESSION: 1. No acute osseous abnormality. 2. Agra-ys-ufhuhbti multilevel cervical spondylosis; as detailed. THIS IS AN ELECTRONICALLY VERIFIED FINAL REPORT 09/06/2023 1:40 PM - Electronically signed by Gary Munson M.D. MF: DEN Report ID: [id number] Reading Location: [id number] Susy Whitfield [facility] IMG CT PROCEDURES Final Result * CT head without contrast (09/06/2023 1:16 PM DISABILITIES CAREGIVER) Anatomical Region Laterality Modality Head and Neck N/A Computed Tomogra phy 09/06/2023 1:26 PM DISABILITIES CAREGIVER Narrative 09/06/2023 1:32 PM DISABILITIES CAREGIVER EXAM DESCRIPTION: CT HEAD WO CONTRAST REASON FOR STUDY: Head trauma, abnormal mental status (Age 19-64y), stroke alert patient ?? Slipped on ice 2 days ago, landed on back and hit back of head. No LOC, presents today with headache, not thinking clearly, low back pain and left facial swelling. Emesis last pm ? TECHNIQUE: Axial images acquired through the brain without intravenous contrast. ??Images stored on PACS. ?? Automated exposure control was used as a dose optimization technique for this examination. COMPARISON: None available. FINDINGS: BRAIN: ?? No hemorrhage, edema or mass effect. No recent infarct. ? Normal white matter. ? EXTRA-AXIAL SPACES: ?? No fluid collections. No masses. CALVARIUM: ?? No fracture. SINUSES/MASTOIDS: ?? No fluid or mucosal thickening. ORBITS: ?? No significant abnormality. OTHER: ?? No other significant abnormality. IMPRESSION: No acute intracranial findings. THIS IS AN ELECTRONICALLY VERIFIED FINAL REPORT 09/06/2023 1:32 PM - Electronically signed by ??Gary CRENSHAW: DEN D: ??09/06/2023 1:32 PM T: ??09/06/2023 1:32 PM Report ID: [id number] Reading Location: ??[id number] Procedure Note Gary Munson, DO - 09/06/2023 EXAM DESCRIPTION: CT HEAD WO CONTRAST REASON FOR STUDY: Head trauma, abnormal mental status (Age 19-64y), stroke alert patient Slipped on ice 2 days ago, landed on back and hit back of head. No LOC, presents today with headache, not thinking clearly, low back pain and left facial swelling. Emesis last pm TECHNIQUE: Axial images acquired through the brain without intravenous contrast. Images stored on PACS. Automated exposure control was used asa dose optimization technique for this examination. COMPARISON: None available. FINDINGS: BRAIN: No hemorrhage, edema or mass effect. No recent infarct. Normal white matter. EXTRA-AXIAL SPACES: No fluid collections. No masses. CALVARIUM: No fracture. SINUSES/MASTOIDS: No fluid or mucosal thickening. ORBITS: No significant abnormality. OTHER: No other significant abnormality. IMPRESSION: No acute intracranial findings. THIS IS AN ELECTRONICALLY VERIFIED FINAL REPORT 09/06/2023 1:32 PM - Electronically signed by Gary Munson M.D. MF: DEN Report ID: [id number] Reading Location: [id number] Susy Armendarizantwan Whitfield [facility] IMG CT PROCEDURES Final Result documented in this encounter Visit Diagnoses Diagnosis Concussion without loss of consciousness, initial encounter- Primary Acute midline low back pain without sciatica Pain, dental documented in this encounter Administered Medications Inactive Administered Medications - up to 3 most recent administrations Medication Order MAR Action Action Date Dose Rate Site ketorolac (TORADOL) 30 mg/mL (1 mL) injection 30 mg 30 mg, intramuscular, Once, On 09/06/23 at 1428, For 1 dose Given 09/06/2023 2:35 PM DISABILITIES CAREGIVER 30 mg Right Dorsogluteal/Buttoc k documented in this encounter Active and Recently Administered Medications Times are shown in DISABILITIES CAREGIVER. Scheduled Medication Order 09/04/2023 09/05/2023 09/06/2023 ketorolac (TORADOL) 30 mg/mL (1 mL) injection 30 mg (COMPLETED) 30 mg, intramuscular, Once, On 09/06/23 at 1428, For 1 dose 1435 (Given - Provid er: Helen Grant RN) documented in this encounter Orders Medications Ordered That Farhan ht Not Have Been Administered Count Last Ordered Date First Ordered Date ketorolac (TORADOL) 30 mg/mL (1 mL) injection 30 mg 1 09/06/2023 documented in this encounter Care Teams Circuit Board Drafter Relationship Specialty Start Date End Date No, Physician PCP - General 09/06/23 documented as of this encounter
--- OUTSIDE RECORDS SUMMARY | 2024-07-24 01:06 | XMS_ITS | Referral Summary ---
Author Organization [facility] Address [address] [place] [id number] Care Team Providers Care Endbander Name Role Phone No, Physician Primary Care Provider [phone] Allergies No known active allergies Medications naproxen [...] on file Legal Sex Female 9:26 AM PROFILE SAW SETUP OPERATOR Gender Identity Not on file Sexual Orientation Not on file Last Filed Vital Signs Vital Sign Reading Time Taken Comments Blood Pressure 117/75 09/06/2023 2:30 PM PROFILE SAW SETUP OPERATOR Pulse 78 09/06/2023 2:37 PM PROFILE SAW SETUP OPERATOR Temperature 36.9 ??C (98.4 ??F) 09/06/2023 12:[address] Respiratory Rate 18 09/06/2023 12:15 PM PROFILE SAW SETUP OPERATOR Oxygen Saturation 97% 09/06/2023 2:37 PM PROFILE SAW SETUP OPERATOR Inhaled Oxygen Concentration - - Weight 68.2 kg (150 lb 5.7 oz) 09/06/2023 12:15 PM PROFILE SAW SETUP OPERATOR Height 162.6 cm (5' 4 ) 09/06/2023 12:15 PM PROFILE SAW SETUP OPERATOR Body Mass Index 25.81 09/06/2023 12:15 PM PROFILE SAW SETUP OPERATOR Plan of Treatment Not on file Insurance IDPA Care Teams Endbander Relationship Specialty Start Date End Date No, Physician PCP - General 09/06/23
== END 2024-07-17 04:51 | disposition home or self-care (01) ==
PROVIDERS: Emergency Provider Emergency Medicine; PCP Obstetrics & Gynecology
DX: N39.0 Urinary tract infection, site not specified (principal); K50.90 Crohn's disease, unspecified, without complications; F17.210 Nicotine dependence, cigarettes, uncomplicated; F41.9 Anxiety disorder, unspecified; F32.A Depression, unspecified; Z87.01 Personal history of pneumonia (recurrent); Z90.710 Acquired absence of both cervix and uterus; Z79.899 Other long term (current) drug therapy; E27.9 Disorder of adrenal gland, unspecified
CPT/HCPCS: 36415; 74177; 80053; 81001; 81025; 83690; 85025; 87086; 96361; 96372; 96374; 99284; J0500; J2405; J7030; Q9967

== ENCOUNTER 2024-08-11 10:50 | Emergency (ER) | payer OTHER, MEDICAID, SELFPAY ==
[2024-08-11 10:58] VITALS: BP 122/70; PULSE 87; RESP 16; TEMP 36.6; O2SAT 100
--- NOTE | 2024-08-11 11:06 | ED.URI ---
HPI - URI/Sore Throat General Chief Complaint: Upper Respiratory Infection Stated Complaint: Cough/Sinus Time Seen by Provider: 08/11/24 11:06 Source: patient, RN notes reviewed and old records reviewed Mode of arrival: ambulatory Limitations: no limitations History of Present Illness HPI Narrative: Patient presents with complaints of 2 days of cough. Patient reports that she was exposed to COVID 2 days ago in the emergency department and is afraid she may have this. She denies any fever, chills, sweats. She does report mild left ear pain. She is not taking anything for her symptoms. She has no other concerns or complaints Related Data Home Medications ?Medication ?Instructions ?Recorded ?Confirmed ?Last Taken ?Type estradiol 1 mg tablet 1 mg PO DAILY 09/11/22 05/28/23 Unknown History lorazepam 1 mg tablet 1 mg PO DAILY 09/11/22 05/28/23 Unknown History lisdexamfetamine 30 mg capsule mg 08/11/24 Unknown History (Vyvanse) Allergies Allergy/AdvReac Type Severity Reaction Status Date / Time amoxicillin AdvReac Hives Verified 08/11/24 11:08 Review of Systems Review of Systems: All systems reviewed & are unremarkable except as noted in HPI and below Constitutional: Constitutional: Reports no additional constitutional complaints ENT: Reports system reviewed and no additional complaints, except as documented and Reports otalgia Cardiovascular: Cardiovascular: Reports no additional cardiovascular complaints Respiratory: Respiratory: Reports no additional respiratory complaints and Reports cough Gastrointestinal: Gastrointestinal: Reports no additional gastrointestinal complaints PMFSH Past Medical History Medical History Crohn's colitis History of sigmoidoscopy Anxiety Depression Hx: UTI (urinary tract infection) History of GI bleed History of inguinal hernia x2 Hx of hemorrhoids IBS (irritable bowel syndrome) Hx of intestinal obstruction Hx of ulcerative colitis History of pneumonia Deviated septum Surgical History Surgical History History of colonoscopy History of hysterectomy History of lumpectomy History of inguinal hernia repair x2 History of appendectomy Family History Family History Mother Hypertension Grandparent Heart disease Heart attack Colon cancer Grandparent Hypertension COPD (chronic obstructive pulmonary disease) Other Cerebrovascular accident Family history of cardiovascular disease Social History Social History Smoking packs per day: 0.5 Smoking cigarettes per day: 10.0 Smoking status: Current every day smoker Alcohol intake: current Alcohol use details: occasional glass of wine Substance use type: prescription drug and other Lack of Transportation: No Lack of Food: Never True Current Housing: I Have Housing Concerned About Future Housing: No Difficulty Paying Gas/Electric Bills: No Difficulty Paying for Meds: No Currently Unemployed: No Education: Trade/Vocational Certificate Difficulty w/ Childcare or Family Care: No Gender identity (if verbalized by the patient): Female Comments At the time of my signature, I reviewed and agree with the nursing past medical, surgical, social, and family history. There is no relevant family history pertinent to the patient complaint. Exam Const: General: cooperative, no acute distress, alert and awake Orientation/consciousness: oriented to person, oriented to place and oriented to time HENMT: Head: normal to inspection Ears: TM's normal bilaterally Mouth: Yes moist mucous membranes Resp: Effort & Inspection: normal respiratory effort and able to speak in complete sentences Auscultation: clear to auscultation bilaterally, no crackles, no rales, no rhonchi and no wheezes Cardio: Palpation: normal PMI Rate: regular rate Rhythm: regular rhythm Heart sounds: S1 normal heart sound present and S2 normal heart sound present Neuro: General: oriented to person, oriented to place and oriented to time Cranial nerves: Yes CN's II-XII intact bilaterally Psych: Appearance: grossly normal Thought process: Normal thought process present Insight: Good insight present (Psych) Judgement: Good judgement present (Psych) Course Course Level of Care: Express Care Visit Vital Signs Vital signs: Vital Signs Temperature 97.9 F 08/11/24 10:58 Pulse Rate 87 08/11/24 10:58 Respiratory Rate 16 08/11/24 10:58 Blood Pressure 122/70 08/11/24 10:58 Pulse Oximetry 100 08/11/24 10:58 Oxygen Delivery Room Air 08/11/24 10:58 Temperature 97.9 F 08/11/24 10:58 Pulse Rate 87 08/11/24 10:58 Respiratory Rate 16 08/11/24 10:58 Blood Pressure 122/70 08/11/24 10:58 Pulse Oximetry 100 08/11/24 10:58 Oxygen Delivery Room Air 08/11/24 10:58 Reviewed MDM - URI/Sore Throat MDM Narrative Medical decision making narrative: Reassuring physical exam. Negative COVID, negative flu. Patient nontoxic appearing, stable for discharge and return to work today. Discharge instructions reviewed with patient, as well as provided in writing per nursing staff. The instructions also include specific and strict return/GO TO THE ER as well as f/u information. All questions have been answered, and the patient deny any further questions with discharge and discharge plan. Some parts of this dictation were generated by voice recognition software and may contain typographical and/or grammatical inaccuracies. Differential Diagnosis Differential diagnosis: Likely upper respiratory infection, viral infection and influenza Medical Records Attestation: I reviewed the patient's medical records. Lab Data Attestation: I reviewed the patient's lab results. Discharge Plan Discharge Clinical Impression: Upper respiratory infection Qualifiers: URI type: unspecified viral URI Qualified Code(s): J06.9 - Acute upper respiratory infection, unspecified Patient Disposition: Home, Self-Care Condition: Stable Instructions: Antibiotic Form, Cold Symptoms (ED) Additional Instructions: Use [id number] medications to treat her symptoms as needed. Please follow package instructions. Follow with primary care provider. Emergency department for new or worse symptoms Patient Language: Indian Prescriptions: No Action methylphenidate HCl [Concerta] 36 mg tablet extended release 24hr 36 mg PO DAILY lorazepam 1 mg tablet 1 mg PO DAILY estradiol 1 mg tablet 1 mg PO DAILY nitrofurantoin macrocrystal 100 mg capsule 100 mg PO Q12H 5 Days Qty: 10 5RF Rx Instructions: must administer with a meal/food ondansetron 4 mg tablet,disintegrating 4 mg PO Q8H PRN (Reason: nausea and vomiting) Qty: 10 0RF dicyclomine 20 mg tablet 20 mg PO QID PRN (Reason: abdominal discomfort) Qty: 20 0RF Follow-up/Referrals: Bubba Lizarraga MD [Primary Care Provider] - 2 Weeks Stand Alone Forms: Work/School Release IP Time of Disposition: 11:28
[2024-08-11 11:20] LABS: EDCOVIDSCREEN Negative (Negative); EDINFLUASCREEN Negative (Negative); EDINFLUBSCREEN Negative (Negative)
== END 2024-08-11 11:36 | disposition home or self-care (01) ==
PROVIDERS: Emergency Provider Nurse Practitioner Family; PCP Obstetrics & Gynecology
DX: J06.9 Acute upper respiratory infection, unspecified (principal); Z20.822 Contact with and (suspected) exposure to COVID-19; K50.90 Crohn's disease, unspecified, without complications; F41.9 Anxiety disorder, unspecified; F17.210 Nicotine dependence, cigarettes, uncomplicated
CPT/HCPCS: 87426; 87804; 99212; G0463

== ENCOUNTER 2024-10-14 00:57 | Day surgery (SDC) | payer OTHER, MEDICAID, SELFPAY ==
[2024-08-15 12:32] VITALS: BMI 24.0
[2024-10-04 11:45] VITALS: BMI 24.0
--- OUTSIDE RECORDS SUMMARY | 2024-10-14 01:02 | XMS_ITS | Clinical Summary ---
Author Organization [facility] Address [facility] [place] [address] Care Team Providers Care [employer] Director Name Role Phone Jesenia Horn SPOT MAN Primary Care Provider [phone] Allergies No known active allergies Medications Multiple Vitamin (MULTIVITAMIN ADULT OR) Take by mouth daily. Active estradiol 1 MG tablet Take 1 tablet (1 mg total) by mouth daily. 022 Active pravastatin (PRAVACHOL) 40 MG tabletIndications :Mixed hyperlipidemia Take 1 tablet (40 mg total) by mouth nightly at bedtime. 90 tablet 3 024 2024 Active amphetamine-dextr oamphetamine XR (ADDERALL XR, 5MG,) 5 MG 24 hr capsuleIndication s:Attention deficit hyperactivity disorder (ADHD), combined type Take 1 capsule (5 mg total) by mouth every morning. Earliest fill date 08/18/24. 30 capsule 025 Active ALPRAZolam (XANAX) 0.25 MG tablet TAKE 1 TABLET BY MOUTH DAILY NEEDED FOR ANXIETY AND/OR ONSET OF PANIC ATTACK 024 Active fluticasone propionate (FLONASE) 50 MCG/ACT nasal spray SPRAY 2 SPRAYS INTRANASALLY DAILY NEEDED. ADMINISTER INTO EACH NOSTRIL 024 Active albuterol sulfate HFA 108 (90 Base) MCG/ACT inhalerIndication s:Wheezing Inhale 2 puffs into the lungs every 6 (six) hours as needed. 18 g 025 Active spironolactone (ALDACTONE) 50 MG tablet Take 1 tablet (50 mg total) by mouth daily as needed. Active cetirizine (ZYRTEC) 10 MG tabletIndications :Seasonal allergies Take 1 tablet (10 mg total) by mouth nightly. 90 tablet 1 Active cetirizine (ZYRTEC) 10 MG tabletIndications :Seasonal allergies Take 1 tablet (10 mg total) by mouth daily. 90 tablet 1 024 2024 Discontinued spironolactone (ALDACTONE) 50 MG tablet Take 1 tablet (50 mg total) by mouth daily. 024 2024 Discontinued LORazepam (ATIVAN) 1 MG tablet Take 1 tablet (1 mg total) by mouth daily. 2024 Discontinued metroNIDAZOLE (METROGEL) 0.75 % vaginal gel INSERT 1 APPLICATORFUL VAGINALLY EVERY NIGHT AT BEDTIME 2024 Discontinued nitrofurantoin (MACRODANTIN) 100 MG capsule take 1 capsule by mouth every 12 hours for 5 days 2024 Discontinued doxycycline hyclate (VIBRAMYCIN) 100 MG capsuleIndication s:Acute non-recurrent frontal sinusitis,Bronchi tis Take 1 capsule (100 mg total) by mouth 2 (two) times daily for 10 days. 20 capsule 025 2024 benzonatate (TESSALON PERLES) 100 MG capsuleIndication s:Bronchitis Take 1 capsule (100 mg total) by mouth 3 (three) times daily as needed. 40 capsule 2024 Discontinued Phentermine HCl (LOMAIRA) 8 MG Tab Take 1 tablet by mouth daily. 2024 Discontinued fluconazole (DIFLUCAN) 150 MG tabletIndications :Yeast infection Take 1 tablet (150 mg total) by mouth once for 1 dose. May repeat in 72 hours if needed. 2 tablet 2024 Active Problems Problem Noted Date Diagnosed Date [...] 10/22/2020 Major depression 05/10/2018 ADHD 04/15/2018 Overview (09/08/2024): In the past took Vyvanse. Dose was adjusted. Symptoms were somewhat sleep shift work related so attempts at modafinil were made. This did not manage symptoms well so then she was attempted on Adderall. Unfortunately in May our clinic did not see that she was also getting lorazepam from another provider. Assessment & Plan (09/08/2024 11:11 AM METAL SPRAYER): Patient reports that her Adderall 5 mg was not adequately managing and so she attempted 10 mg at my recommendation until today. Symptoms are somewhat improved. Unfortunately she did violate her contract for controlled substance because she also is getting lorazepam from another provider. She indicates that she was doing this since she established with me but I explained that it appears the scripts are showing up in the PDMP since January around the time that she established with me. I explained that lorazepam and alprazolam are both controlled substances. While I can see the use for alprazolam very intermittently for panic attacks, it appears that she has been getting both filled on a fairly regular basis. She indicates that she is not using lorazepam as often but she is filling it every 30 days. She indicates that she feels comfortable discontinuing lorazepam so that she can continue the Adderall. I explained that I have my concerns about violation of trust and may request urine drug screen intermittently confirm that she is no longer taking lorazepam. She is agreeable to this request. Also had her sign a release of information and she verbally provides this as well that I can communicate current status with Dr. Bonita Pisano who is prescribing her lorazepam. Assessment & Plan (06/10/2024 1:42 PM METAL SPRAYER): Chronic, controlled but more symptoms of sleep [...] Generalized anxiety disorder 04/15/2018 10/22/2020 Ulcerative colitis ([facility]) 04/15/2018 10/22/2020 Acne 04/15/2018 03/07/2024 Encounters Date Type Department Care Team Description 10/10/2024 10:20 AM CDT [facility] [place] [address] [facility] [address] [place] [address] Jesenia Horn NP ADHD (w/ Behavioral Disturbance); Anxiety; Insomnia NOS 10/10/2024 Telephone [facility] [place] [address] [facility] [address] [place] [address] Jesenia Horn NP Record Request 10/10/2024 Travel 09/08/2024 10:10 AM METAL SPRAYER Office Visit [address] [place] [address] Samantha Sanders MD Follow Up (Med check. She did double up on her adderral. Doesn't see much diff. ) 09/08/2024 Telephone [facility] [address] [place] [address] Samantha Sanders MD Other 09/08/2024 Travel 09/05/2024 2:35 PM METAL SPRAYER Office Visit [facility] [address] [address] Alta Le PA URI (S/s 2-3 weeks. Took tamiflu) 09/05/2024 Travel 09/01/2024 MyChart Message Enc [facility] [address] [facility] [place] [address] Samantha Sanders MD New medication 08/05/[address] [facility] - [place] [address] [place] [address] Samantha Sanders MD Medication 07/19/[address] [facility] - [place] [address] [place] [address] Bubba Adams II, MD Medication Problem from Last 3 Months Immunizations Name Administration Dates Next Due Fluzone 6 Months+ Quad (0.5 mL Prefilled Syringe ) 05/23/2021,10/17/2019 MODERNA COVID-19 (12+) MRNA, LNP-S, PF, 100 MCG/ 0.5 ML DOSE 03/18/2021,02/07/2021 Td 07/20/2003,08/31/2000 Td (Generic) 07/20/2003,08/31/2000 Td, Adsorbed, Preservative F ree, Adult Use, Lf Unspecified 07/20/2003,08/31/2000 Tdap (Adacel) 05/23/2021 Tdap (Generic) 08/10/2017 Family History Medical History Relation Comments Hypertension Mother Aneurysm Paternal Grandfather Cancer Paternal Grandfather colon Heart disease Paternal Grandfather Relation Status Comments Father Alive Mother Alive Paternal Grandfather Social History Tobacco Use Types Packs/Day Years Used Date Smoking Tobacco: Former Cigarettes 1 21.2 S tarted: 2004 Passive Smoke Exposure: Past Smokeless Tobacco: Never [...] Date Recorded Patient Health Questionnaire-2 Score 2 10/10/2024 Comments No Sex and Gender Information Value Date Recorded Sex Assigned at Female 09/05/2024 2:04 PM METAL SPRAYER Legal Sex Female 4:47 PM CDT Gender Identity Female 09/05/2024 2:04 PM METAL SPRAYER Sexual Orientation Not on file Last Filed Vital Signs Vital Sign Reading Time Taken Comments Blood Pressure 134/80 10/10/2024 10:25 AM CDT Pulse 83 10/10/2024 10:25 AM CDT Temperature 36.7 C (98.1 F) 10/10/2024 10:25 AM CDT Respiratory Rate 16 10/10/2024 10:25 AM CDT Oxygen Saturation 100% 10/10/2024 10:25 AM CDT Inhaled Oxygen Concentration - - Weight 65 kg (143 lb 3.2 oz) 10/10/2024 10:25 AM CDT Height 162.6 cm (5' 4 ) 10/10/2024 10:25 AM CDT Body Mass Index 24.58 10/10/2024 10:25 AM CDT Plan of Treatment Upcoming Encounters Date Type Department Care Team (Late st Contact Info) Description 01/11/2025 8:00 AM CDT Office Visit [facility] [place] [address] [facility] [address] [place] [address] Jesenia Horn, SPOT MAN [address] [place] [address] Health Maintenance Due Date Last Done Comments Colorectal Cancer Screening Colonoscopy (10 Years) 1975 Hepatitis B Vaccines (1 of 3 - 19+ 3-dose series) 1994 Mammogram Screening 2015 Annual Physical 05/23/2022 05/23/2021 COVID-19 Vaccine ( season) 2024 03/18/2021, 02/07/2021 Influenza Adult (#1) 2024 05/23/2021, 10/17/19 20 DTaP, Tdap and Td Vaccines (3 - Td or Tdap) 05/23/2031 05/23/2021, 08/10/2017, 07/20/2003, Additional history exists Hepatitis C 10/04/2053 Postponed from 1993 (Patient Refused) PHQ-2 (Physician [place]) Completed 10/10/2024 Meningococcal B Vaccine Aged Out No l onger eligible based on patient's age to complete this topic Meningococcal Vaccine Aged Out No bismark maria l eligible based on patient's age to complete this topic Pneumococcal Vaccine: Pediatrics (0 to 5 Years) and At-Risk Patients (6 to 64 Years) Aged Out No longer eligible based on patient's age to complete this topic RSV Immunizations Under 20 Months Aged Out No longer eligible based on patient's age to complete this topic Procedures Procedure Name Priority Date/Time Associated Diagnosis Comments MG/PCCL UDS W CONF Routine 09/08/2024 11 :08 AM METAL SPRAYER Medication management Therapeutic drug monitoring from Last 3 Months Results * (ABNORMAL) MG/PCCL UDS W CONF (09/08/2024 11:08 AM METAL SPRAYER) RESULT SUMMARY [facility] Comment: Prescribed Prescribed Not Prescribed Consistent Inconsistent Inconsistent Alprazolam Lorazepam PRESCRIBED DRUG 2 (U) Lorazepam [facility] PRESCRIBED DRUG 3 (U) Alprazolam [facility] FENTANYL SCREEN (U) NEGATIVE <0.5 ng/mL [facility] MORPHINE (U) NEGATIVE <10 ng/mL [facility] DESMETHYLTRAMADOL (U) NEGATIVE <100 ng/mL [facility] TRAMADOL (U) NEGATIVE <100 ng/mL [facility] TRAMADOL COMMENTS [facility] Comment:See LDT Notes AMPHETAMINES PM NEGATIVE <500 ng/mL [facility] BARBITURATES PM (U) NEGATIVE <300 ng/mL [facility] BENZODIAZEPINES PM (U) POSITIVE(A) <100 ng/mL [facility] ALPHAHYDROXYALPRAZOLAM PM (U) 1,518(H) <25 ng/mL [facility] ALPHAHYDROXYALPRAZOLAM PM MEDMATCH (U) CONSISTENT [facility] MIDAZOLAM PM (U) NEGATIVE <50 ng/mL [facility] ALPHAHYDROXYTRIAZOLAM PM (U) NEGATIVE <50 ng/mL [facility] AMINOCLONAZEPAM PM (U) NEGATIVE <25 ng/mL [facility] OH ET FLURAZEPAM PM (U) NEGATIVE <50 ng/mL [facility] LORAZEPAM PM (U) 205(H) <50 ng/mL [facility] LORAZEPAM PM MEDMATCH (U) CONSISTENT [facility] NORDIAZEPAM PM (U) NEGATIVE <50 ng/mL [facility] OXAZEPAM PM (U) NEGATIVE <50 ng/mL [facility] TEMAZEPAM PM NEGATIVE <50 ng/mL [facility] BENZODIAZEPINES COMMENTS [facility] Comment:See Benzodiazepines Notes, LDT Notes COCAINE METABOLITE PM (U) NEGATIVE <150 ng/mL [facility] MARIJUANA METABOLITE PM (U) NEGATIVE CONFIRMED <20 ng/mL [facility] MARIJUANA METABOLITE PM CONF (U) NEGATIVE <5 ng/mL [facility] MARIJUANA COMMENTS [facility] Comment:See LDT Notes METHADONE PM (U) NEGATIVE <100 ng/mL [facility] OPIATES PM (U) NEGATIVE <100 ng/mL [facility] OXYCODONE PM (U) NEGATIVE <100 ng/mL [facility] CREATININE RANDOM (U) 82.2 > or = 20.0 mg/dL [facility] pH PM (U) 5.4 4.5 - 9.0 [facility] OXIDANT NEGATIVE <200 mcg/mL [facility] NOTE [facility] Comment: This drug testing is for medical treatment only. Analysis was performed as non-forensic testing and these results should be used only by healthcare providers to render diagnosis or treatment, or to monitor progress of medical conditions. Benzodiazepines Notes: aOH Alprazolam detected is consistent with the use of the drug Alprazolam. Lorazepam detected is consistent with the use of the drug Lorazepam. LDT Notes: Confirmation tests were developed and their analytical performance characteristics have been determined by [employer]. It has not been cleared or approved by the FDA. This assay has been validated pursuant to the CLIA regulations and is used for clinical purposes. medMATCH(R) enables providers to identify if drug use is consistent or inconsistent with a corresponding prescribed medication(s) list. Healthcare Providers needing Interpretation assistance, please contact us at [phone] ( ) M-F, 8am to 10pm EST URINE SPECIMEN / Unknown 09/08/2024 11:08 AM METAL SPRAYER 09/09/2024 2:55 AM METAL SPRAYER Narrative Resulting Agency Comment Performing Organization Information: Site ID: [id number] Name: [facility] Address: [address] [place] [address] Director: Gal Vaca Site ID: [id number] Name: [facility] Address: [address] [place] [address] Director: Daksha Hernández MD us Samantha Sanders MD URINE ORDERABLES Final R esult [facility] [id number] [facility] [place] [address], [facility] [address] [place] [address] from Last 3 Months Insurance MEDICAID Care Teams [employer] Director Relationship Specialty Start Date End Date Jesenia Horn NP [address] [place] [address] PCP - General NURSE PRACTITIONER 10/03/24
--- OUTSIDE RECORDS SUMMARY | 2024-10-14 01:02 | XMS_ITS | Clinical Summary ---
Author Organization [facility] Address [address] [place] [address] Care Team Providers Care Photographer Portrait Name Role Phone No, Physician Primary Care Provider [phone] Allergies No known active allergies Medications naproxen [...] on file Legal Sex Female 9:26 AM HTML WEB DEVELOPER Gender Identity Not on file Sexual Orientation Not on file Obstetrics History Last Filed Vital Signs Vital Sign Reading Time Taken Comments Blood Pressure 117/75 09/06/2023 2:30 PM HTML WEB DEVELOPER Pulse 78 09/06/2023 2:37 PM HTML WEB DEVELOPER Temperature 36.9 C (98.4 F) 09/06/2023 12:15 PM HTML WEB DEVELOPER Respiratory Rate 18 09/06/2023 12:15 PM HTML WEB DEVELOPER Oxygen Saturation 97% 09/06/2023 2:37 PM HTML WEB DEVELOPER Inhaled Oxygen Concentration - - Weight 68.2 kg (150 lb 5.7 oz) 09/06/2023 12:15 PM HTML WEB DEVELOPER Height 162.6 cm (5' 4 ) 09/06/2023 12:15 PM HTML WEB DEVELOPER Body Mass Index 25.81 09/06/2023 12:15 PM HTML WEB DEVELOPER Plan of Treatment Health Maintenance Due Date [...] complete this topic Insurance IDPA Care Teams Photographer Portrait Relationship Specialty Start Date End Date No, Physician PCP - General 09/06/23
--- OUTSIDE RECORDS SUMMARY | 2024-10-14 01:02 | XMS_ITS | Referral Summary ---
Author Organization [facility] Address [address] [place] [address] Care Team Providers Care Slot Floorman Name Role Phone No, Physician Primary Care Provider [phone] Allergies No known active allergies Medications naproxen [...] on file Legal Sex Female 9:26 AM REAL ESTATE RENTAL AGENT Gender Identity Not on file Sexual Orientation Not on file Last Filed Vital Signs Vital Sign Reading Time Taken Comments Blood Pressure 117/75 09/06/2023 2:30 PM REAL ESTATE RENTAL AGENT Pulse 78 09/06/2023 2:37 PM REAL ESTATE RENTAL AGENT Temperature 36.9 C (98.4 F) 09/06/2023 12:15 PM REAL ESTATE RENTAL AGENT Respiratory Rate 18 09/06/2023 12:15 PM REAL ESTATE RENTAL AGENT Oxygen Saturation 97% 09/06/2023 2:37 PM REAL ESTATE RENTAL AGENT Inhaled Oxygen Concentration - - Weight 68.2 kg (150 lb 5.7 oz) 09/06/2023 12:15 PM REAL ESTATE RENTAL AGENT Height 162.6 cm (5' 4 ) 09/06/2023 12:15 PM REAL ESTATE RENTAL AGENT Body Mass Index 25.81 09/06/2023 12:15 PM REAL ESTATE RENTAL AGENT Plan of Treatment [place] [address] Care Teams Slot Floorman Relationship Specialty Start Date End Date No, Physician PCP - General 09/06/23
--- OUTSIDE RECORDS SUMMARY | 2024-10-14 01:02 | XMS_ITS | Patient Health Record ---
Author Organization [facility] Address [address] [place] [address] Care Team Providers Care Director Social Welfare Name Role Phone Kurt Gregg Primary Care Provider [phone] Allergies No Known Allergies Reason For Referral No Information Medications Medication SIG (Take, Route, Frequency, Duration) Notes Start Date End Date Status buPROPion HCl ER (XL) 150 MG 1 tablet Orally Once a day for 30 days Active Estradiol Active busPIRone HCl 7.5 MG 1 tablet Orally twi ce a day for 30 days Active Azelastine HCl 0.1 % 1 puff in each nost ril Nasally twice a day Active Pravastatin Sodium 20 MG 1 tablet Orally Once a day Active hydrOXYzine Pamoate 25 MG 1 capsule as n eeded Orally Every 4 hours Active Loratadine 10 MG 1 tablet Orally Once a day Active Vyvanse 60 MG 1 capsule in the mor humera Orally Once a day Active Naltrexone HCl 50 MG 1 tablet Orally Onc e a day Active Problems Problem Type SNOMED Code ICD Code Onset Dates Problem Status W/U Status Risk Notes Problem Major depression (396779315) Major depression (F32.9) Active confirmed Problem Alcohol abuse (71337113) Alcohol abuse (F10.10) Active confirmed Plan Of Treatment No Information Insurance Providers Payer Name Payer Address Payer Phone Subscriber Number Group Number Insured Name Patient Relationship to Insured Coverage Start Date Coverage End Date [employer] [address] [place] [phone] [id number] Karlie Scott Self - patient is the insured 2 [employer] [address] [place] [address] [id number] Karlie Scott Self - patient is the insured 2 Medical (General) History Medical History History ICD Code Major Depressive Disorder, recurrent Generalized anxiety disorder Alcohol use disorder Hx of Attention deficit disorder High cholesterol Hospitalization History Reason Date(Month/Year) [facility] Katharine 11/24/2021
--- OUTSIDE RECORDS SUMMARY | 2024-10-14 01:03 | XMS_ITS | Encounter Summary ---
Author Organization [facility] Address [address] [place] [address] Care Team Providers Care Churn Operator Name Role Phone Charley Cabrera MD Primary Care Provider [phone] Samantha Sanders MD Primary Care Provider + Jesenia Horn NP Primary Care Provider [phone] Encounter Details Date Type Department Care Team (Late st Contact Info) Description 07/30/2022 [employer] Message Enc [facility] Medical Group Family & Internal Medicine [facility] [address] [place] [address] Rika, [facility] Provider Ratna Social History Tobacco Use Types Packs/Day [...] Sex Assigned at Female 09/05/2024 2:04 PM BUYER GRAIN Legal Sex Female 4:47 PM CDT Gender Identity Female 09/05/2024 2:04 PM BUYER GRAIN Sexual Orientation Not on file COVID-19 Exposure Response Date Recorded In the last 10 days, have yo u been in contact with someone who was confirmed or suspected to have Coronavirus/COVID-19? No / Unsure 07/24/2022 4:17 PM BUYER GRAIN documented as of this encounter Plan of Treatment Upcoming Encounters Date Type Department Care Team (Late st Contact Info) Description 01/11/2025 8:00 AM CDT Office Visit [facility] Medical Group Multispecialty Care - [place] [address] [place] [address] Jesenia Horn NP [address] [facility] [address] [place] [address] documented as of this encounter Visit Diagnoses Not on filedocumented in this encounter Additional Health Concerns Infection Onset Date Last Indicated Resolved Time COVID-19 Rule Out 05/25/2023 05/25/2023 05/25/2023 10:11 AM BUYER GRAIN COVID-19 Confirmed 05/25/2023 05/25/2023 12:32 AM BUYER GRAIN Assessment Noted Time PHQ-9 Depression Total Score: 0 04/21/20 22 2:28 PM CDT documented as of this encounter Care Teams Churn Operator Relationship Specialty [place] [address] [facility] [address] [place] [address] PCP - General FAMILY PRACTICE 04/21/22 03/03/24 Samantha Sanders MD [address] [place] [address] PCP - General FAMILY PRACTICE 03/07/24 09/08/24 Jesenia Horn NP [address] [place] [address] PCP - General NURSE PRACTITIONER 10/03/24 documented as of this encounter
--- OUTSIDE RECORDS SUMMARY | 2024-10-14 01:03 | XMS_ITS | Encounter Summary ---
Author Organization [facility] Address [address] [place] [address] Care Team Providers Care Erp Analyst Name Role Phone Faith Galvez NP Primary Care Provider Charley Solorzano MD Primary Care Provider Samantha Sanders MD Primary Care Provider + Jesenia Horn NP Primary Care Provider [phone] Encounter Details Date Type Department Care Team (Late st Contact Info) Description 03/20/2022 [email or web address] Message Enc [facility] Medical Group Family & Internal Medicine [address] [address] Faith Galvez, DORINA Medication change Social History Tobacco Use Types [...] Sex Assigned at Female 09/05/2024 2:04 PM SHOWROOM SALES CONSULTANT Legal Sex Female 4:47 PM CDT Gender Identity Female 09/05/2024 2:04 PM SHOWROOM SALES CONSULTANT Sexual Orientation Not on file COVID-19 Exposure [...] Description 01/11/2025 8:00 AM CDT Office Visit [facility] Medical Group Multispecialty Care - [place] [address] [place] [address] Jesenia Horn HAIRSPRING TRUER [address] [place] [address] documented as of this encounter Visit Diagnoses Not on filedocumented in this encounter Additional Health Concerns Infection Onset Date Last Indicated Resolved Time COVID-19 Rule Out 05/25/2023 05/25/2023 05/25/2023 10:11 AM SHOWROOM SALES CONSULTANT COVID-19 Confirmed 05/25/2023 05/25/2023 12:32 AM SHOWROOM SALES CONSULTANT Assessment Noted Time PHQ-9 Depression Total Score: 5 09/05/19 22 10:09 AM SHOWROOM SALES CONSULTANT documented as of this encounter Care Teams Erp Analyst Relationship Specialty Start Date End Date Faith Galvez NP PCP - General NURSE PRACTITIONER 05/23/21 04/20/22 [place] [address] [address] [place] [address] PCP - General FAMILY PRACTICE 04/21/22 03/03/24 Samantha Sanders MD [address] [place] [address] PCP - General FAMILY PRACTICE 03/07/24 09/08/24 Jesenia Horn NP [address] [place] [address] PCP - General NURSE PRACTITIONER 10/03/24 documented as of this encounter
--- OUTSIDE RECORDS SUMMARY | 2024-10-14 01:03 | XMS_ITS | Encounter Summary ---
Author Organization [facility] Address [address] [place] [address] Care Team Providers Care Saw Edge Fuser Circular Name Role Phone Faith Galvez GETTERER Primary Care Provider Charley Solorzano MD Primary Care Provider [phone] Samantha Sanders MD Primary Care Provider + Jesenia Horn NP Primary Care Provider [phone] Encounter Details Date Type Department Care Team (Late st Contact Info) Description 05/23/2021 [employer] Message Enc [facility] Medical Group Family & Internal Medicine [address] [address] Faith Galvez, GETTERER Medication Questions Social History Tobacco Use Types Packs/Day Years Used Date Smoking Tobacco: Every Day Cigarettes 0.3 20 Smokeless Tobacco: Never Comments:provider to student assistance counselor Alcohol Use Standard Drinks/Week Comments Yes [...] Sex Assigned at Female 09/05/2024 2:04 PM DEPARTMENT ADMINISTRATOR Legal Sex Female 4:47 PM CDT Gender Identity Female 09/05/2024 2:04 PM DEPARTMENT ADMINISTRATOR Sexual Orientation Not on file COVID-19 Exposure [...] Description 01/11/2025 8:00 AM CDT Office Visit [facility] Medical Group Multispecialty Care - [place] [address] [place] [address] Jesenia Horn, GETTERER [address] [facility] [address] [place] [address] documented as of this encounter Visit Diagnoses Not on filedocumented in this encounter Additional Health Concerns Infection Onset Date Last Indicated Resolved Time COVID-19 Rule Out 05/25/2023 05/25/2023 05/25/2023 10:11 AM DEPARTMENT ADMINISTRATOR COVID-19 Confirmed 05/25/2023 05/25/2023 12:32 AM DEPARTMENT ADMINISTRATOR Assessment Noted Time PHQ-9 Depression Total Score: 2 05/23/20 21 8:38 AM CDT documented as of this encounter Care Teams Saw Edge Fuser Circular Relationship Specialty Start Date End Date Faith Galvez NP PCP - General NURSE PRACTITIONER 05/23/21 04/20/22 [place] [address] [facility] [address] [place] [address] PCP - General FAMILY PRACTICE 04/21/22 03/03/24 Samantha Sanders MD [address] [place] [address] PCP - General FAMILY PRACTICE 03/07/24 09/08/24 Jesenia Horn, GETTERER [address] [facility] [address] [place] [address] PCP - General NURSE PRACTITIONER 10/03/24 documented as of this encounter
--- OUTSIDE RECORDS SUMMARY | 2024-10-14 01:03 | XMS_ITS | Encounter Summary ---
Author Organization [facility] Address [address] [place] [address] Care Team Providers Care Overhead Door Technician Name Role Phone Faith Galvez NP Primary Care Provider Charley Solorzano MD Primary Care Provider [phone] Samantha Sanders MD Primary Care Provider + Jesenia Horn NP Primary Care Provider [phone] Encounter Details Date Type Department Care Team (Late st Contact Info) Description 09/06/2021 [employer] Message Enc [facility] Medical Group Family & Internal Medicine [address] [address] [facility] Provider lab results Social History Tobacco Use Types Packs/Day Years Used Date Smoking Tobacco: Every Day Cigarettes 0.3 20 Smokeless Tobacco: Never Comments:provider to scholarship counselor Alcohol Use Standard Drinks/Week Comments Yes [...] Sex Assigned at Female 09/05/2024 2:04 PM ENGAGEMENT LIAISON Legal Sex Female 4:47 PM CDT Gender Identity Female 09/05/2024 2:04 PM ENGAGEMENT LIAISON Sexual Orientation Not on file COVID-19 Exposure Response Date Recorded In the last 10 days, have yo u been in contact with someone who was confirmed or suspected to have Coronavirus/COVID-19? No / Unsure 09/05/2021 9:59 AM ENGAGEMENT LIAISON documented as of this encounter Plan of Treatment Upcoming Encounters Date Type Department Care Team (Late st Contact Info) Description 01/11/2025 8:00 AM CDT Office Visit [facility] Medical Group Multispecialty Care - [place] [address] [place] [address] Jesenia Horn, PROGRAM STRATEGIST [address] [place] [address] documented as of this encounter Visit Diagnoses Not on filedocumented in this encounter Additional Health Concerns Infection Onset Date Last Indicated Resolved Time COVID-19 Rule Out 05/25/2023 05/25/2023 05/25/2023 10:11 AM ENGAGEMENT LIAISON COVID-19 Confirmed 05/25/2023 05/25/2023 12:32 AM ENGAGEMENT LIAISON Assessment Noted Time PHQ-9 Depression Total Score: 5 09/05/19 22 10:09 AM ENGAGEMENT LIAISON documented as of this encounter Care Teams Overhead Door Technician Relationship Specialty Start Date End Date Faith Galvez NP PCP - General NURSE PRACTITIONER 05/23/21 04/20/22 [place] [address] [facility] [address] [place] [address] PCP - General FAMILY PRACTICE 04/21/22 03/03/24 Samantha Sanders MD [address] [place] [address] PCP - General FAMILY PRACTICE 03/07/24 09/08/24 Jesenia Horn, PROGRAM STRATEGIST [address] [facility] [address] [place] [address] PCP - General NURSE PRACTITIONER 10/03/24 documented as of this encounter
--- OUTSIDE RECORDS SUMMARY | 2024-10-14 01:03 | XMS_ITS | Encounter Summary ---
Author Organization [facility] Address [facility] [place] [address] Care Team Providers Care Precision Farming Specialist Name Role Phone KapilVianey goodman EMANI Primary Care Provider [phone] Faith Galvez NP Primary Care Provider Charley Solorzano MD Primary Care Provider [phone] Samantha Sanders MD Primary Care Provider + Jesenia Horn NP Primary Care Provider [phone] Encounter Details Date Type Department Care Team (Latest Contact Info) Description 05/25/[address] [facility] Medical Group Horacio Beauchamp MD Social History Tobacco Use Types Packs/Day Years Used Date Smoking Tobacco: Never Assessed Comments Unknown Sex and Gender Information Value Date Recorded Sex Assigned at Female 09/05/2024 2:04 PM SELF PROPELLED HOT MIX ROLLER OPERATOR Legal Sex Female 4:47 PM CDT Gender Identity Female 09/05/2024 2:04 PM SELF PROPELLED HOT MIX ROLLER OPERATOR Sexual Orientation Not on file documented as of this encounter Plan of Treatment Upcoming Encounters Date Type Department Care Team (Late st Contact Info) Description 01/11/2025 8:00 AM CDT Office Visit [facility] Medical Group Multispecialty Care - [place] [address] [place] [address] Jesenia Horn, BOTTOM CAGER [address] [place] [address] documented as of this encounter Visit Diagnoses Not on filedocumented in this encounter Additional Health Concerns Infection Onset Date Last Indicated Resolved Time COVID-19 Rule Out 06/06/2020 06/06/2020 08/05/2020 12:33 AM SELF PROPELLED HOT MIX ROLLER OPERATOR COVID-19 Rule Out 05/25/2023 05/25/2023 05/25/2023 10:11 AM SELF PROPELLED HOT MIX ROLLER OPERATOR COVID-19 Confirmed 05/25/2023 05/25/2023 12:32 AM SELF PROPELLED HOT MIX ROLLER OPERATOR documented as of this encounter Care Teams Precision Farming Specialist Relationship Specialty Start Date End Date Vianey Meyer FNP [address] [place] [address] PCP - General Nurse Practitioner Family 06/21/1805/22/21 Faith Galvez, DROINA [address] [place] [address] PCP - General NURSE PRACTITIONER 05/23/21 04/20/22 [place] [address] [facility] [place] [address] PCP - General FAMILY PRACTICE 04/21/22 03/03/24 Samantha Sanders MD [address] [place] [address] PCP - General FAMILY PRACTICE 03/07/24 09/08/24 Jesenia Horn BOTTOM CAGER [address] [facility] [address] [place] [address] PCP - General NURSE PRACTITIONER 10/03/24 documented as of this encounter
--- OUTSIDE RECORDS SUMMARY | 2024-10-14 01:03 | XMS_ITS | Encounter Summary ---
Author Organization [facility] Address [address] [place] [address] Care Team Providers Care Special Event Assistant Name Role Phone Faith Galvez NP Primary Care Provider Charley Solorzano MD Primary Care Provider [phone] Samantha Sanders MD Primary Care Provider + Jesenia Horn NP Primary Care Provider [phone] Encounter Details Date Type Department Care Team (Late st Contact Info) Description 07/30/2021 [employer] Message Enc [facility] Medical Group Family & Internal Medicine [address] [address] [facility] Medication Social History Tobacco Use Types Packs/Day Years Used Date Smoking Tobacco: Every Day Cigarettes 0.3 20 Smokeless Tobacco: Never Comments:provider to counseling services manager Alcohol Use Standard Drinks/Week Comments Yes [...] Sex Assigned at Female 09/05/2024 2:04 PM AUDIT TECH Legal Sex Female 4:47 PM CDT Gender Identity Female 09/05/2024 2:04 PM AUDIT TECH Sexual Orientation Not on file COVID-19 Exposure Response Date Recorded In the last month, have you been in contact with someone who was confirmed or suspected to have Coronavirus / COVID-19? No / Unsure 07/09/2021 2:09 PM AUDIT TECH documented as of this encounter Plan of Treatment Upcoming Encounters Date Type Department Care Team (Late st Contact Info) Description 01/11/2025 8:00 AM CDT Office Visit [facility] Medical Group Multispecialty Care - [place] [address] [place] [address] Jesenia Horn, PROCESS CHEMIST [address] [facility] [address] [place] [address] documented as of this encounter Visit Diagnoses Not on filedocumented in this encounter Additional Health Concerns Infection Onset Date Last Indicated Resolved Time COVID-19 Rule Out 05/25/2023 05/25/2023 05/25/2023 10:11 AM AUDIT TECH COVID-19 Confirmed 05/25/2023 05/25/2023 12:32 AM AUDIT TECH Assessment Noted Time PHQ-9 Depression Total Score: 2 05/23/20 8:38 AM CDT documented as of this encounter Care Teams Special Event Assistant Relationship Specialty Start Date End Date Faith Galvez NP PCP - General NURSE PRACTITIONER 05/23/21 04/20/22 [place] [address] [facility] [place] [address] PCP - General FAMILY PRACTICE 04/21/22 03/03/24 Samantha Sanders MD [address] [place] [address] PCP - General FAMILY PRACTICE 03/07/24 09/08/24 Jesenia Horn, PROCESS CHEMIST [address] [facility] [address] [place] [address] PCP - General NURSE PRACTITIONER 10/03/24 documented as of this encounter
--- OUTSIDE RECORDS SUMMARY | 2024-10-14 01:03 | XMS_ITS | Encounter Summary ---
Author Organization [facility] Address [address] [place] [address] Care Team Providers Care Bronze Plater Name Role Phone Charley Cabrera MD Primary Care Provider [phone] Samantha Sanders MD Primary Care Provider + Jesenia Horn NP Primary Care Provider [phone] Encounter Details Date Type Department Care Team (Late st Contact Info) Description 08/13/2022 Copious Message Enc [facility] Medical Group Family & Internal Medicine [facility] [address] [place] [address] [facility] Social History Tobacco [...] Sex Assigned at Female 09/05/2024 2:04 PM WOUND CARE RN Legal Sex Female 4:47 PM CDT Gender Identity Female 09/05/2024 2:04 PM WOUND CARE RN Sexual Orientation Not on file COVID-19 Exposure Response Date Recorded In the last 10 days, have yo u been in contact with someone who was confirmed or suspected to have Coronavirus/COVID-19? No / Unsure 07/24/2022 4:17 PM WOUND CARE RN documented as of this encounter Plan of Treatment Upcoming Encounters Date Type Department Care Team (Late st Contact Info) Description 01/11/2025 8:00 AM CDT Office Visit [facility] Medical Group Multispecialty Care - [place] [address] [place] [address] Jesenia Horn, DORINA [address] [facility] [address] [place] [address] documented as of this encounter Visit Diagnoses Not on filedocumented in this encounter Additional Health Concerns Infection Onset Date Last Indicated Resolved Time COVID-19 Rule Out 05/25/2023 05/25/2023 05/25/2023 10:11 AM WOUND CARE RN COVID-19 Confirmed 05/25/2023 05/25/2023 12:32 AM WOUND CARE RN Assessment Noted Time PHQ-9 Depression Total Score: 0 04/21/20 2:28 PM CDT documented as of this encounter Care Teams Bronze Plater Relationship Specialty [place] [address] [facility] [place] [address] PCP - General FAMILY PRACTICE 04/21/22 03/03/24 Samantha Sanders MD [address] [place] [address] PCP - General FAMILY PRACTICE 03/07/24 09/08/24 Jesenia Horn, CAN FILLING AND CLOSING MACHINE TENDER [address] [facility] [address] [place] [address] PCP - General NURSE PRACTITIONER 10/03/24 documented as of this encounter
--- OUTSIDE RECORDS SUMMARY | 2024-10-14 01:03 | XMS_ITS | Encounter Summary ---
Author Organization [facility] Address [address] [place] [address] Care Team Providers Care Carpentry Specialist Name Role Phone Faith Galvez NP Primary Care Provider Charley Solorzano MD Primary Care Provider [phone] Samantha Sanders MD Primary Care Provider + Jesenia Horn NP Primary Care Provider [phone] Encounter Details Date Type Department Care Team (Late st Contact Info) Description 05/27/2021 [employer] Message Enc [facility] Medical Group Family & Internal Medicine [address] [address] Rika [facility] Provider [place] Social History Tobacco Use Types Packs/Day Years Used Date Smoking Tobacco: Every Day Cigarettes 0.3 20 Smokeless Tobacco: Never Comments:provider to claims counsel Alcohol Use Standard Drinks/Week Comments Yes [...] Sex Assigned at Female 09/05/2024 2:04 PM WOMEN'S BASKETBALL COACH Legal Sex Female 4:47 PM CDT Gender Identity Female 09/05/2024 2:04 PM WOMEN'S BASKETBALL COACH Sexual Orientation Not on file COVID-19 Exposure [...] 8:00 AM CDT Office Visit [facility] Medical Group Multispecialty Care - [place] [address] [place] [address] Jesenia Horn, SYSTEM PLANNING ENGINEER [address] [facility] [facility] [address] [place] [address] documented as of this encounter Visit Diagnoses Not on filedocumented in this encounter Additional Health Concerns Infection Onset Date Last Indicated Resolved Time COVID-19 Rule Out 05/25/2023 05/25/2023 05/25/2023 10:11 AM WOMEN'S BASKETBALL COACH COVID-19 Confirmed 05/25/2023 05/25/2023 12:32 AM WOMEN'S BASKETBALL COACH Assessment Noted Time PHQ-9 Depression Total Score: 2 05/23/20 21 8:38 AM CDT documented as of this encounter Care Teams Carpentry Specialist Relationship Specialty Start Date End Date Faith Galvez NP PCP - General NURSE PRACTITIONER 05/23/21 04/20/22 [place] [address] [facility] [place] [address] PCP - General FAMILY PRACTICE 04/21/22 03/03/24 Samantha Sanders MD [address] [place] [address] PCP - General FAMILY PRACTICE 03/07/24 09/08/24 Jesenia Horn, SYSTEM PLANNING ENGINEER [address] [facility] [facility] [address] [place] [address] PCP - General NURSE PRACTITIONER 10/03/24 documented as of this encounter
--- OUTSIDE RECORDS SUMMARY | 2024-10-14 01:03 | XMS_ITS | Encounter Summary ---
Author Organization [facility] Address [address] [place] [address] Care Team Providers Care Patch Press Operator Name Role Phone Charley Cabrera MD Primary Care Provider Samantha Sanders MD Primary Care Provider + Jesenia Horn NP Primary Care Provider [phone] Encounter Details Date Type Department Care Team (Late st Contact Info) Description 09/09/2022 [employer] Medical[employer] Message Enc [facility] Family & Internal Medicine [facility] [address] [place] [address] Charley Cabrera MD [address] [place] [address] [address] Medicine Follow Up Social History Tobacco Use [...] Sex Assigned at Female 09/05/2024 2:04 PM GEOLOGIST Legal Sex Female 4:47 PM CDT Gender Identity Female 09/05/2024 2:04 PM GEOLOGIST Sexual Orientation Not on file COVID-19 Exposure Response Date Recorded In the last 10 days, have yo u been in contact with someone who was confirmed or suspected to have Coronavirus/COVID-19? No / Unsure 09/08/2022 3:41 PM GEOLOGIST documented as of this encounter Progress Notes * dEna Nunez RN - 09/10/2022 9:41 AM CST Please advise. OGIST documented in this encounter Plan of Treatment Upcoming Encounters Date Type Department Care Team (Late st Contact Info) Description 01/11/2025 8:00 AM CDT Office Visit [facility] Multispecialty Care - [place] [address] [place] [address] Jesenia Horn, VACUUM CLEANER REPAIRER [address] [place] [address] documented as of this encounter Visit Diagnoses Not on filedocumented in this encounter Additional Health Concerns Infection Onset Date Last Indicated Resolved Time COVID-19 Rule Out 05/25/2023 05/25/2023 05/25/2023 10:11 AM GEOLOGIST COVID-19 Confirmed 05/25/2023 05/25/2023 12:32 AM GEOLOGIST Assessment Noted Time PHQ-9 Depression Total Score: 0 04/21/20 2:28 PM CDT documented as of this encounter Care Teams Patch Press Operator Relationship Specialty [place] [address] [facility] [address] [place] [address] PCP - General FAMILY PRACTICE 04/21/22 03/03/24 Samantha Sanders MD [address] [place] [address] PCP - General FAMILY PRACTICE 03/07/24 09/08/24 Jesenia Horn, VACUUM CLEANER REPAIRER [address] [facility] [address] [place] [address] PCP - General NURSE PRACTITIONER 10/03/24 documented as of this encounter
--- OUTSIDE RECORDS SUMMARY | 2024-10-14 01:03 | XMS_ITS | Data Portability ---
Author Organization [place] [facility] [employer] Address [address] [place] [address] Care Team Providers Care Hospital Scientist Name Role Phone RHEA HAIDER Die Maker Electronic Assessment Encounter Date Assessment Date Assessment LastModified by Organization Details LastModified Time 10/01/2022 10/01/2022 Medication Changes LASHAY obtained. Records requested. [facility] labs [facility] August. Reviewed the information within [...] plan. F/U 6 months, sooner if needed [email or web address] Not available 10/01/2022 11:46:07 Plan of Treatment Reminders Order Date Submit Date Provider Last Modified By Organization Details Last Modified Time Details Appointments None recorded. Lab None recorded. Referral None recorded. Procedures None recorded. Surgeries None recorded. Imaging None recorded. Medication Orders pravastatin 40 mg tablet 2022 023 [email or web address] [employer] [facility] #[id number], [address] [facility], [place], [place], [id number], 11:53:56 Patient TargetsNo targets recorded. Patient Instructions Encounter Date Encounter Id Patient Instructions Last Modified By Organization Details Last Modified Time 10/01/2022 [id number] resistance training with free weights: exercises [email or web address] Not available 10/01/2022 11:44:40 Learning About Being Physically Active [email or web address] Not available 10/01/2022 11:44:40 high cholesterol : care instructions [email or web address] Not available 10/01/2022 11:44:40 low cholesterol diet [email or web address] Not available 10/01/2022 11:44:40 Reason for Referral None Reported. Problems Name Problem SNOMED Code Status Onset Date Resolution Date Notes Provider Name and Address Organization Details Recorded Time Hyperlipidemia 50092758 Active 2022 Luz Mejia, APPRENTICE JOCKEY-BC, PMHNP-BC [address] [facility], [place], [address], [facility] 11:39:17 Problem Notes None recorded. Procedures Surgical History Date Name Laterality Status Provider Name and Address Organization Details Recorded Time [facility] 10/01/2022 09:19:48 Hernia Repair [facility] 10/01/2022 09:19:58 Appendectomy completed [facility] 10/01/2022 09:20:11 lumpectomy of breast completed [facility] 10/30/2022 15:37:02 Imaging Results None [...] by Pulse oximetry Respiratory rate Body temperature Pain severity - 0-10 verbal numeric rating [Score] - Reported Body mass index (BMI) Body height Systolic blood pressure Diastolic blood pressure Provider Name and Address Organization Details Last Updated DateTime 3 [address].9 5 g 68 /min 100 % 100 % 20 /min 98 [degF] 0 25.4 kg/m2 162.56 cm 110 mm[Hg] 61 mm[Hg] Sindy Baird [facility] 11:07:24 Social History Question Answer Notes LastModified by Organizat ion Details LastModified Time Tobacco Smoking Status Current Every Day Smoker John Valdovinos doris [facility] 10/01/2022 09:16:40 Do You Have An Advance Directive? No [email or web address] Information not available 10/01/2022 What Is Your Level Of Alcohol Consumption? Occasional [email or web address] Information not available 10/01/2022 How Many Times Per Week Do You Consume Alcohol? Less Than 1 Time Per Week [email or web address] Information not available 10/01/2022 How Many Years Have You Consumed Alcohol? 28 Information not available 10/01/2022 Are You Currently Sexually Active With Anyone Who Has Traveled (within The Last 12 Weeks) To A Zika-affected Area? No orhtnyf54 Information not available 10/01/2022 Do You Wear A Helmet When Biking? Yes Information not available 10/01/2022 Are You Blind Or Do You Have Difficulty Seeing? No [email or web address] Information not available 10/01/2022 Is Blood Transfusion Acceptable In An Emergency? Yes nbhwosx54 Information not available 10/01/2022 What Is Your Level Of Caffeine Consumption? Moderate rcnhorf36 Information not available 10/01/2022 What Type Of Health Information Specialist Do You Use? None [email or web address] Information not available 10/01/2022 What Is Your Code Status? Full Code [email or web address] Information not available 10/01/2022 In The 14 Days Before Symptom Onset, Have You Had Close Contact With A Laboratory-confir med COVID-19 While That Case Was Ill? No [email or web address] Information not available 10/01/2022 In The 14 Days Before Symptom Onset, Have You Had Close Contact With A Person Who Is Under Investigation For COVID-19 While That Person Was Ill? No wutnqvv75 Information not available 10/01/2022 Have You Been To An Area Known To Be High Risk For COVID-19? No prcfanj43 Information not available 10/01/2022 Are You Currently Employed? Yes [email or web address] Information not available 10/01/2022 Are You Deaf Or Do You Have Serious Difficulty Hearing? No adgbpjd73 Information not available 10/01/2022 What Type Of Diet Are You Following? REGULAR tmcjarl66 Information not available 10/01/2022 Have You Processed Blood Or Body Fluids From An Ebola Virus Disease Patient Without Appropriate PPE? No oxenbyp38 Information not available 10/01/2022 Do You Reside In Or Have You Traveled To An Area Where Ebola Virus Transmission Is Active? No [email or web address] Information not available 10/01/2022 What Is The Highest Grade Or Level Of School You Have Completed Or The Highest Degree You Have Received? 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 5-7 Times Per Week arjiumj60 Information not available 10/01/2022 Have There Been Any Changes To Your Family Or Social Situation? No oxbvwla29 Information no t available 10/01/2022 Are There Any Guns Present In Your Home? No Information not available 10/01/2022 Which Of Your Hands Is Dominant? Right lxhnohl84 Information not available 10/01/2022 Have You Recently Or Are You Planning To Travel To An Area With Zika Virus? No ezyoerz05 Information not available 10/01/2022 Do You Have A Medical Power Of Water Resources Engineer? No yqdtdbc27 Information not available 10/01/2022 What Was The Date Of Your Most Recent Tobacco Screening? 10/01/2022 rrkbxky62 Information not available 10/01/2022 How Many Children Do You Have? 2 lddxyjq06 Information not available 10/01/2022 What Is Your Current Pack Years? 10-19packyears bpvnonx03 Information not available 10/01/2022 Have You Ever Been Counseled For Unhealthy Alcohol Use? No wnuojhf82 Information not available 10/01/2022 Do You Have Any Pets? Yes hsrbeuq65 Information not available 10/01/2022 Do You Use Protection During Sex? Always hausvcd11 Information not available 10/01/2022 What Is Your Relationship Status? qmxezic74 Information not available 10/01/2022 Do You Use Your Seat Belt Or Car Seat Routinely? Yes Information not available 10/01/2022 Are You Sexually Active? Yes Information not available 10/01/2022 Do You Have Smoke And Carbon Monoxide Detectors In Your Home? Yes wmenadj73 Information not available 10/01/2022 At What Age Did You Start Smoking Tobacco? 18 jeehnor81 Information not available 10/01/2022 Are You Passively Exposed To Smoke? Yes gixsjhy19 Information no t available 10/01/2022 How Much Tobacco Do You Smoke? 1 PPW tdetmuw76 Information not available 10/01/2022 Do You Participate In Social Media? Yes sozhlxi59 Information not available 10/01/2022 Do You Feel Stressed (tense, Restless, Nervous, Or Anxious, Or Unable To Sleep At Night)? [id number] Information not available 10/01/2022 Do You Use Any Illicit Or Recreational Drugs? No qhftfbe36 Information not available 10/01/2022 Do You Use Sunscreen Routinely? Yes Information not available 10/01/2022 How Many Years Have You Smoked Tobacco? 29 mfnkvoy31 Information not available 10/01/2022 Have You Recently Traveled Abroad? No sacisfe60 Information not available 10/01/2022 Are You Currently In School? No iwpnvur49 Information not available 10/01/2022 Do You Have Any Dietary Restrictions? No yihhylh46 Information not available 10/01/2022 Do You Or Have You Ever Used Any Other Forms Of Tobacco Or Nicotine? No bexlllb95 Information not available 10/01/2022 Sex: Female Functional Status Question Answer Note LastModified by Organizat ion Details LastModified Time Do you have difficulty walking or climbing stairs? No vuikeae59 Information not available 10/01/2022 Do you have transportation difficulties? No qykewuh58 Information not available 10/01/2022 Are you able to walk? YESWOREST jemqepc58 Information not available 10/01/2022 Do you have difficulty doing errands alone? No gqsoyxc71 Information not available 10/01/2022 Are you able to care for yourself? Yes [email or web address] Information not available 10/01/2022 Do you have difficulty dressing or bathing? No igxtcju82 Information not available 10/01/2022 What is your exercise level? Moderate tbsmyal03 Information not available 10/01/2022 Mental Status Question Answer Note LastModified by Organization D etails LastModified Time Do you have difficulty concentrating, remembering or making decisions? No zsvpnac43 Information no t available 10/01/2022 Family History Relationship Description Onset Age of this Age Resolved Age Notes LastModified by Organization Details LastModified Time Paternal Grandfather Malignant tumor of colon [email or web address] Not available 2022 09:10:55 Paternal Grandfather Alzheimer's disease [email or web address] Not available 2022 09:12:54 Mother Essential hypertension dnojrof52 Not available 09:11:12 Mother Anxiety disorder yxilrmv91 Not available 2022 09:11:45 Mother Depressive disorder xtkznoa63 Not available 2022 09:12:04 Paternal Grandmother Essential hypertension oidrvfu08 Not available 09:11:24 Maternal Aunt Dementia bbnekvm94 Not a vailable 10/01/2022 09:13:11 Medical History Condition Response Anxiety Disorder Y Allergies/Hayfever Y Psychiatric Diseases / Disorders Y Endocrine Diseases / Disorders Y Gastrointestinal Diseases / Disorders Y Ear, Nose, Throat Diseases / Disorders Y Infectious Disease/Disorders/Virus Y Attention Deficit Disorder (ADD/ADHD) Y Hyperlipidemia Y Depression Y Nicotine / Tobacco Dependence Y Vitamin deficiency Y Gynecological HistoryNo gynecological history recorded. Obstetrics History GPAL:G 0 P 0 0 0 0 Past Encounters Encounter ID Performer Location Encounter Start Date Encounter Closed Date Diagnosis/Indication Diagnosis SNOMED-CT Code Diagnosis ICD10 Code Diagnosis Note [id number] Luz Mejia, APPRENTICE JOCKEY-, PMHNP- Main Office [address] [place] [address] 10/01/2022 11:00:46 10/01/2022 18:19:06 Adult health examination 185880918 Z00.00 Hyperlipidemia 32483116 E78.5 Exercises education, guidance, and counseling 021964759 Z71.82 Health Concerns Section Related Observation LastModified by Organization Detai ls LastModified Time None Recorded Concern Status LastModified by Organization Details LastModified Time None Recorded Advance Directives Directive N: Payers Encounter Date Sequence Insurance Name Policy Number Policy L[place] Covered Member ID [place] Member ID Guarantor Name 10/01/2022 1 [facility] [id number] Karlie Ivory [id number] Karlie Enriquezmarcus Notes Date Note Type Note Provider Name [...] of hearing Vision:no vision problems Luz Mejia, APPRENTICE JOCKEY-BC, PMHNP-BC [address] [place], [address], [facility] 10/01/2022 12:33:44 OBGyn Episode No OBEpisode recorded.
--- OUTSIDE RECORDS SUMMARY | 2024-10-14 01:03 | XMS_ITS | Encounter Summary ---
Author Organization [facility] Address [address] [place] [address] Care Team Providers Care Respiratory Services Manager Name Role Phone Charley Cabrera MD Primary Care Provider [phone] Samantha Sanders MD Primary Care Provider + Jesenia Horn NP Primary Care Provider [phone] Encounter Details Date Type Department Care Team (Late st Contact Info) Description 11/28/2022 MyCHytlet Message Enc [facility] Medical Group Family & Internal Medicine [facility] [address] [place] [address] Charley Cabrera MD [address] [place] [address]. [address] [address] Concerta Social History Tobacco Use Types Packs/Day [...] Sex Assigned at Female 09/05/2024 2:04 PM SWEAT BOX ATTENDANT Legal Sex Female 4:47 PM CDT Gender Identity Female 09/05/2024 2:04 PM SWEAT BOX ATTENDANT Sexual Orientation Not on file documented as of this encounter Progress Notes * Edna Nunez RN - 12/03/2022 9:54 AM CDT Received approval for medication-pharmacy notified * Edna Nunez RN - 12/01/2022 11:12 AM CDT Please advise. documented in this encounter Plan of Treatment Upcoming Encounters Date Type Department Care Team (Late st Contact Info) Description 01/11/2025 8:00 AM CDT Office Visit [facility] Group Multispecialty Care - [place] [address] [place] [address] Jesenia Horn, PRE ALGEBRA TEACHER [address] [place] [address] documented as of this encounter Visit Diagnoses Diagnosis Attention deficit hyperactivity disorder (ADHD), combined type documented in this encounter Additional Health Concerns Infection Onset Date Last Indicated Resolved Time COVID-19 Rule Out 05/25/2023 05/25/2023 05/25/2023 10:11 AM SWEAT BOX ATTENDANT COVID-19 Confirmed 05/25/2023 05/25/2023 12:32 AM SWEAT BOX ATTENDANT Assessment Noted Time PHQ-9 Depression Total Score: 0 04/21/20 22 2:28 PM CDT documented as of this encounter Care Teams Respiratory Services Manager Relationship Specialty [place] [address] [address] [place] [address] PCP - General FAMILY PRACTICE 04/21/22 03/03/24 Samantha Sanders MD [address] [place] [address] PCP - General FAMILY PRACTICE 03/07/24 09/08/24 Jesenia Horn, PRE ALGEBRA TEACHER [address] [facility] [address] [place] [address] PCP - General NURSE PRACTITIONER 10/03/24 documented as of this encounter
--- OUTSIDE RECORDS SUMMARY | 2024-10-14 01:03 | XMS_ITS | Encounter Summary ---
Author Organization [facility] Address [address] [place] [address] Care Team Providers Care Impregnator Electrolytic Capacitors Name Role Phone Charley Cabrera MD Primary Care Provider [phone] Samantha Sanders MD Primary Care Provider + Jesenia Horn NP Primary Care Provider [phone] Encounter Details Date Type Department Care Team (Late st Contact Info) Description 06/10/2022 Ter[employer]le Message Enc [facility] Group Family & Internal Medicine [facility] [address] [place] [address] [facility] Provider urine drug screen Social [...] Sex Assigned at Female 09/05/2024 2:04 PM FURNITURE ASSOCIATE Legal Sex Female 4:47 PM CDT Gender Identity Female 09/05/2024 2:04 PM FURNITURE ASSOCIATE Sexual Orientation Not on file COVID-19 Exposure [...] Description 01/11/2025 8:00 AM CDT Office Visit [facility] Multispecialty Care - [place] [address] [place] [address] Jesenia Horn NP [address] [facility] [address] [place] [address] documented as of this encounter Visit Diagnoses Not on filedocumented in this encounter Additional Health Concerns Infection Onset Date Last Indicated Resolved Time COVID-19 Rule Out 05/25/2023 05/25/2023 05/25/2023 10:11 AM FURNITURE ASSOCIATE COVID-19 Confirmed 05/25/2023 05/25/2023 12:32 AM FURNITURE ASSOCIATE Assessment Noted Time PHQ-9 Depression Total Score: 0 04/21/20 22 2:28 PM CDT documented as of this encounter Care Teams Impregnator Electrolytic Capacitors Relationship Specialty Start [place] [address] [facility] [address] [place] [address] PCP - General FAMILY PRACTICE 04/21/22 03/03/24 Samantha Sanders MD [address] [place] [address] PCP - General FAMILY PRACTICE 03/07/24 09/08/24 Jesenia Horn NP [address] [place] [address] PCP - General NURSE PRACTITIONER 10/03/24 documented as of this encounter
--- OUTSIDE RECORDS SUMMARY | 2024-10-14 01:03 | XMS_ITS | Encounter Summary ---
Author Organization [facility] Address [address] [place] [address] Care Team Providers Care Internet Ecommerce Specialist Name Role Phone Faith Galvez NP Primary Care Provider Charley Solorzano MD Primary Care Provider [phone] Samantha Sanders MD Primary Care Provider + Jesenia Horn NP Primary Care Provider [phone] Encounter Details Date Type Department Care Team (Late st Contact Info) Description 10/28/2021 [employer] Message Enc [facility] Group Family & Internal Medicine [address] [address] Faith Galvez, DORINA Auto immune? Social History Tobacco Use Types Packs/Day Years Used Date Smoking Tobacco: Every Day Cigarettes 0.3 20 Smokeless Tobacco: Never Comments:provider to international student counselor Alcohol Use Standard Drinks/Week Comments Yes [...] Sex Assigned at Female 09/05/2024 2:04 PM REINFORCED STEEL PLACING SUPERVISOR Legal Sex Female 4:47 PM CDT Gender Identity Female 09/05/2024 2:04 PM REINFORCED STEEL PLACING SUPERVISOR Sexual Orientation Not on file COVID-19 Exposure [...] Description 01/11/2025 8:00 AM CDT Office Visit [facility] Multispecialty Care - [place] [address] [place] [address] Jesenia Horn, VOICE TEACHER [address] [place] [address] documented as of this encounter Visit Diagnoses Not on filedocumented in this encounter Additional Health Concerns Infection Onset Date Last Indicated Resolved Time COVID-19 Rule Out 05/25/2023 05/25/2023 05/25/2023 10:11 AM REINFORCED STEEL PLACING SUPERVISOR COVID-19 Confirmed 05/25/2023 05/25/2023 12:32 AM REINFORCED STEEL PLACING SUPERVISOR Assessment Noted Time PHQ-9 Depression Total Score: 5 09/05/19 22 10:09 AM REINFORCED STEEL PLACING SUPERVISOR documented as of this encounter Care Teams Internet Ecommerce Specialist Relationship Specialty Start Date End Date Faith Galvez NP PCP - General NURSE PRACTITIONER 05/23/21 04/20/22 [place] [address] [facility] [address] [place] [address] PCP - General FAMILY PRACTICE 04/21/22 03/03/24 Samantha Sanders MD [address] [place] [address] PCP - General FAMILY PRACTICE 03/07/24 09/08/24 Jesenia Horn, VOICE TEACHER [address] [place] [address] PCP - General NURSE PRACTITIONER 10/03/24 documented as of this encounter
--- OUTSIDE RECORDS SUMMARY | 2024-10-14 01:03 | XMS_ITS | Encounter Summary ---
Author Organization [facility] Address [address] [place] [address] Care Team Providers Care Project Program Manager Name Role Phone Charley Cabrera MD Primary Care Provider [phone] Samantha Sanders MD Primary Care Provider + Jesenia Horn NP Primary Care Provider [phone] Encounter Details Date Type Department Care Team (Late st Contact Info) Description 04/29/2022 [employer] Message Enc [facility] Medical Group Family & Internal Medicine [facility] [address] [place] [address] Rika, [facility] Provider Cologuafish Social History Tobacco Use Types Packs/Day Years [...] Sex Assigned at Female 09/05/2024 2:04 PM RECORDS MANAGEMENT DIRECTOR Legal Sex Female 4:47 PM CDT Gender Identity Female 09/05/2024 2:04 PM RECORDS MANAGEMENT DIRECTOR Sexual Orientation Not on file COVID-19 Exposure [...] Description 01/11/2025 8:00 AM CDT Office Visit [facility] Group Multispecialty Care - [place] [address] [place] [address] Jesenia Horn NP [address] [facility] [address] [place] [address] documented as of this encounter Visit Diagnoses Not on filedocumented in this encounter Additional Health Concerns Infection Onset Date Last Indicated Resolved Time COVID-19 Rule Out 05/25/2023 05/25/2023 05/25/2023 10:11 AM RECORDS MANAGEMENT DIRECTOR COVID-19 Confirmed 05/25/2023 05/25/2023 12:32 AM RECORDS MANAGEMENT DIRECTOR Assessment Noted Time PHQ-9 Depression Total Score: 0 04/21/20 2:28 PM CDT documented as of this encounter Care Teams Project Program Manager Relationship Specialty [place] [address] [facility] [place] [address] PCP - General FAMILY PRACTICE 04/21/22 03/03/24 Samantha Sanders MD [address] [place] [address] PCP - General FAMILY PRACTICE 03/07/24 09/08/24 Jesenia Horn NP [address] [place] [address] PCP - General NURSE PRACTITIONER 10/03/24 documented as of this encounter
--- OUTSIDE RECORDS SUMMARY | 2024-10-14 01:03 | XMS_ITS | Encounter Summary ---
Author Organization [facility] Address [address] [place] [address] Care Team Providers Care Septic Technician Name Role Phone Charley Cabrera MD Primary Care Provider [phone] Samantha Sanders MD Primary Care Provider + Jesenia Horn NP Primary Care Provider [phone] Encounter Details Date Type Department Care Team (Late st Contact Info) Description 11/10/2022 LoopIt Message Enc [facility] Group Family & Internal Medicine [facility] [address] [place] [address] [facility] medication Social History Tobacco Use Types [...] Sex Assigned at Female 09/05/2024 2:04 PM AGRISCIENCE INSTRUCTOR Legal Sex Female 4:47 PM CDT Gender Identity Female 09/05/2024 2:04 PM AGRISCIENCE INSTRUCTOR Sexual Orientation Not on file COVID-19 Exposure [...] Description 01/11/2025 8:00 AM CDT Office Visit [facility] Mult[facility]ty [facility] - [place] [address] [place] [address] Jesenia Horn, DORINA [address] [facility] [address] [place] [address] documented as of this encounter Visit Diagnoses Not on filedocumented in this encounter Additional Health Concerns Infection Onset Date Last Indicated Resolved Time COVID-19 Rule Out 05/25/2023 05/25/2023 05/25/2023 10:11 AM AGRISCIENCE INSTRUCTOR COVID-19 Confirmed 05/25/2023 05/25/2023 12:32 AM AGRISCIENCE INSTRUCTOR Assessment Noted Time PHQ-9 Depression Total Score: 0 04/21/20 22 2:28 PM CDT documented as of this encounter Care Teams Septic Technician Relationship Specialty [place] [address] [facility] [place] [address] PCP - General FAMILY PRACTICE 04/21/22 03/03/24 Samantha Sanders MD [address] [place] [address] PCP - General FAMILY PRACTICE 03/07/24 09/08/24 Jesenia Horn, DORINA [address] [place] [address] PCP - General NURSE PRACTITIONER 10/03/24 documented as of this encounter
--- OUTSIDE RECORDS SUMMARY | 2024-10-14 01:03 | XMS_ITS | Clinical Summary ---
Author Organization [facility] [employer] Address [address] [place] [address] Care Team Providers Care Cork Floor Installer Name Role Phone Brenda Cleaning MD Primary Care Provider Source Comments [facility] [employer],non-owned Affiliates and Associated Physician Practices is amultiple site organization consisting of ambulatory clinics and hospital sitesin [place], [place], [place] and [place]. This disclosure is being madepursuant to the Care Everywhere program and may not contain all information available regarding this patient. Last updated 18.[employer] Allergies No known active allergies Medications * [...] QUADRIVALENT; 6MO+), 0.5 ML (IIV4) 05/23/2021,10/17/2019 TD VACCINE 07/20/2003, 4,08/31/2000, 001 TDAP, HISTORIC VACCINE 05/23/2021,08/10/2017 [...] Comments Blood Pressure 127/70 05/25/2023 10:21 PM NUCLEAR OPERATIONS SPECIALIST Pulse 115 05/25/2023 10:21 PM NUCLEAR OPERATIONS SPECIALIST Temperature 36.8 C (98.2 F) 05/25/2023 10:21 PM NUCLEAR OPERATIONS SPECIALIST Respiratory Rate 18 05/25/2023 10:21 PM NUCLEAR OPERATIONS SPECIALIST Oxygen Saturation 96% 05/25/2023 10:21 PM NUCLEAR OPERATIONS SPECIALIST Inhaled Oxygen Concentration - - Weight 67 [...] SCREENING 1975 MAMMOGRAM 1975 PAP SMEAR 1975 HIV SCREENING 1990 HEPATITIS C SCREENING 02/08/1993 HEPATITIS B VACCINE (1 of 3 - 19+ 3-dose series) 1994 PNEUMOCOCCAL VACCINE (1 of 2 - PCV) 1994 SCREENING FOR DIABETES 09/30/2022 COVID-19 VACCINE (3 - season) 2024 03/18/2021, 02/07/2021 INFLUENZA VACCINE (#1) 2024 05/23/2021, 2019 DEPRESSION SCREENING 07/20/2024 ZOSTER VACCINE (1 of 2) 2025 DTAP/TDAP/TD VACCINES (8 - Td or Tdap) 05/23/2031 05/23/2021, 08/10/2017, 07/20/2003, Additional history exists HIB VACCINE Aged Out No longer eligi ble based on patient's age to complete this topic HPV VACCINE Aged Out No longer eligi ble based on patient's age to complete this topic MENINGOCOCCAL (Group B) VACCINE SHARED DECISION-MAKING Aged Out No longer eligible based on patient's age to complete this topic MENINGOCOCCAL GROUPS A/C/Y/W VACCINE Aged Out No longer eligible based on patient's age to complete this topic Care Teams Cork Floor Installer Relationship Specialty Start Date End Date Brenda Cleaning MD [address] [place] [phone] PCP - General 06/02/18
--- OUTSIDE RECORDS SUMMARY | 2024-10-14 01:03 | XMS_ITS | Encounter Summary ---
Author Organization [facility] Address [address] [place] [address] Care Team Providers Care Black Belt Name Role Phone Charley Cabrera MD Primary Care Provider [phone] Samantha Sanders MD Primary Care Provider + Jesenia Horn NP Primary Care Provider [phone] Encounter Details Date Type Department Care Team (Late Contact Info) Description 12/03/2022 MocoSpace Message Enc [facility] Medical [facility] Family & Internal Medicine [address] [address] Rika, [facility] Provider Felicitas Social History Tobacco Use Types Packs/Day Years [...] Sex Assigned at Female 09/05/2024 2:04 PM APPLE SOLUTIONS CONSULTANT Legal Sex Female 4:47 PM CDT Gender Identity Female 09/05/2024 2:04 PM APPLE SOLUTIONS CONSULTANT Sexual Orientation Not on file documented as of this encounter Plan of Treatment Upcoming Encounters Date Type Department Care Team (Late Contact Info) Description 01/11/2025 8:00 AM CDT Office Visit [facility] Group Multispecialty Care - [place] [address] [place] [address] Jesenia Horn NP [address] [place] [address] documented as of this encounter Visit Diagnoses Not on filedocumented in this encounter Additional Health Concerns Infection Onset Date Last Indicated Resolved Time COVID-19 Rule Out 05/25/2023 05/25/2023 05/25/2023 10:11 AM APPLE SOLUTIONS CONSULTANT COVID-19 Confirmed 05/25/2023 05/25/2023 12:32 AM APPLE SOLUTIONS CONSULTANT Assessment Noted Time PHQ-9 Depression Total Score: 0 04/21/20 22 2:28 PM CDT documented as of this encounter Care Teams Black Belt Relationship Specialty [place] [address] [facility] [place] [address] PCP - General FAMILY PRACTICE 04/21/22 03/03/24 Samantha Sanders MD [address] [place] [address] PCP - General FAMILY PRACTICE 03/07/24 09/08/24 Jesenia Horn, SYSTEMS ANALYSIS MANAGER [address] [place] [address] PCP - General NURSE PRACTITIONER 10/03/24 documented as of this encounter
--- OUTSIDE RECORDS SUMMARY | 2024-10-14 01:03 | XMS_ITS | Encounter Summary ---
Author Organization [facility] Address [address] [place] [address] Care Team Providers Care Superintendent Division Name Role Phone Charley Cabrera MD Primary Care Provider [phone] Samantha Sanders MD Primary Care Provider + Jesenia Horn NP Primary Care Provider [phone] Encounter Details Date Type Department Care Team (Late Contact Info) Description 12/31/2023 MediKeeper Message Enc [facility] Medical Group Family & Internal Medicine [address] [address] Rika, [facility] Provider yeast Social History Tobacco Use Types [...] Sex Assigned at Female 09/05/2024 2:04 PM FRAUD EXAMINER Legal Sex Female 4:47 PM CDT Gender Identity Female 09/05/2024 2:04 PM FRAUD EXAMINER Sexual Orientation Not on file documented as of this encounter Plan of Treatment Upcoming Encounters Date Type Department Care Team (Late Contact Info) Description 01/11/2025 8:00 AM CDT Office Visit [facility] Medical Group Multispecialty Care - [place] [address] [place] [address] Jesenia Horn NP [address] [place] [address] documented as of this encounter Visit Diagnoses Not on filedocumented in this encounter Additional Health Concerns Assessment Noted Time PHQ-9 Depression Total Score: 14 023 1:30 PM FRAUD EXAMINER documented as of this encounter Care Teams Superintendent Division Relationship Specialty [place] [address] [facility] [place] [address] PCP - General FAMILY PRACTICE 04/21/22 03/03/24 Samantha Sanders MD [address] [place] [address] PCP - General FAMILY PRACTICE 03/07/24 09/08/24 Jesenia Horn NP [address] [place] [address] PCP - General NURSE PRACTITIONER 10/03/24 documented as of this encounter
--- OUTSIDE RECORDS SUMMARY | 2024-10-14 01:03 | XMS_ITS | Encounter Summary ---
Author Organization [facility] Address [address] [place] [address] Care Team Providers Care Tallow Refiner Name Role Phone Faith Galvez NP Primary Care Provider Charley Solorzano MD Primary Care Provider [phone] Samantha Sanders MD Primary Care Provider + Jesenia Horn NP Primary Care Provider [phone] Encounter Details Date Type Department Care Team (Late st Contact Info) Description 02/02/2022 Corban Direct Message Enc [facility] Medical Group Family & Internal Medicine [address] [address] Faith Galvez, DORINA Segundo Social [...] Sex Assigned at Female 09/05/2024 2:04 PM PAINT PREPPER Legal Sex Female 4:47 PM CDT Gender Identity Female 09/05/2024 2:04 PM PAINT PREPPER Sexual Orientation Not on file COVID-19 Exposure [...] Description 01/11/2025 8:00 AM CDT Office Visit [facility] Medical Group Multispecialty Care - [place] [address] [place] [address] Jesenia Horn WELDING SETTER [address] [place] [address] documented as of this encounter Visit Diagnoses Not on filedocumented in this encounter Additional Health Concerns Infection Onset Date Last Indicated Resolved Time COVID-19 Rule Out 05/25/2023 05/25/2023 05/25/2023 10:11 AM PAINT PREPPER COVID-19 Confirmed 05/25/2023 05/25/2023 12:32 AM PAINT PREPPER Assessment Noted Time PHQ-9 Depression Total Score: 5 09/05/19 22 10:09 AM PAINT PREPPER documented as of this encounter Care Teams Tallow Refiner Relationship Specialty Start Date End Date Faith Galvez NP PCP - General NURSE PRACTITIONER 05/23/21 04/20/22 [place] [address] [address] [place] [address] PCP - General FAMILY PRACTICE 04/21/22 03/03/24 Samantha Sanders MD [address] [place] [address] PCP - General FAMILY PRACTICE 03/07/24 09/08/24 Jesenia Horn, WELDING SETTER [address] [facility] [address] [place] [address] PCP - General NURSE PRACTITIONER 10/03/24 documented as of this encounter
--- OUTSIDE RECORDS SUMMARY | 2024-10-14 01:03 | XMS_ITS | Encounter Summary ---
Author Organization [facility] Address [address] [place] [address] Care Team Providers Care Overnight Associate Name Role Phone Charley Cabrera MD Primary Care Provider [phone] Samantha Sanders MD Primary Care Provider + Jesenia Horn NP Primary Care Provider [phone] Encounter Details Date Type Department Care Team (Late Contact Info) Description 12/02/2022 BCR Environmental Message Enc [facility] Medical Group Family & Internal Medicine [address] [address] Rika, [facility] Provider kandice Social History Tobacco Use Types Packs/Day Years [...] Sex Assigned at Female 09/05/2024 2:04 PM HEAD OF ENGLISH Legal Sex Female 4:47 PM CDT Gender Identity Female 09/05/2024 2:04 PM HEAD OF ENGLISH Sexual Orientation Not on file documented as of this encounter Plan of Treatment Upcoming Encounters Date Type Department Care Team (Late Contact Info) Description 01/11/2025 8:00 AM CDT Office Visit [facility] Medical Group Multispecialty Care - [place] [address] [facility] [address] [place] [address] Jesenia Horn NP [address] [facility] [facility] [address] [place] [address] documented as of this encounter Visit Diagnoses Not on filedocumented in this encounter Additional Health Concerns Infection Onset Date Last Indicated Resolved Time COVID-19 Rule Out 05/25/2023 05/25/2023 05/25/2023 10:11 AM HEAD OF ENGLISH COVID-19 Confirmed 05/25/2023 05/25/2023 12:32 AM HEAD OF ENGLISH Assessment Noted Time PHQ-9 Depression Total Score: 0 04/21/20 22 2:28 PM CDT documented as of this encounter Care Teams Overnight Associate Relationship Specialty [place] [address] [facility] [place] [address] PCP - General FAMILY PRACTICE 04/21/22 03/03/24 Samantha Sanders MD [address] [place] [address] PCP - General FAMILY PRACTICE 03/07/24 09/08/24 Jesenia Horn, VOLUNTEER SERVICES COORDINATOR [address] [facility] [address] [place] [address] PCP - General NURSE PRACTITIONER 10/03/24 documented as of this encounter
[2024-10-14 09:02] VITALS: BP 123/76; PULSE 97; RESP 16; TEMP 36; O2SAT 100
[2024-10-14] MEDS: LACTATED RINGERS 1,000 ML 150 ML IV CONT (09:13)
--- NOTE | 2024-10-14 09:24 | P.PNAN_ITS ---
Anes - Initial Pre Proc Eval Procedure: Operation Date: 10/14/24 10:00 Proposed Procedures p Colonoscopy - Shaq Saravia MD Date/Time: 10/14/24 09:24 Surgeon: Shaq Saravia MD Pre Op Diagnosis: ulcerative colitis, unspecified intestinal obstruc Patient Data Age: 49 Gender: F Height: 1.63 m Weight: 63.7 kg Last Vital Signs Temp 36.0 C L 10/14/24 09:02 Pulse 97 10/14/24 09:02 Resp 16 10/14/24 09:02 BP 123/76 10/14/24 09:02 Pulse Ox 100 10/14/24 09:02 O2 Del Method Room Air 10/14/24 09:02 Allergies Allergy/AdvReac Type Severity Reaction Status Date / Time No Known Allergies Allergy Verified 10/14/24 08:59 Home Medications ?Medication ?Instructions ?Recorded ?Confirmed ?Type estradiol 1 mg tablet 1 mg PO DAILY 09/11/22 10/14/24 History lorazepam 1 mg tablet 1 mg PO DAILY 09/11/22 10/14/24 History lisdexamfetamine 30 mg capsule 30 mg PO DAILY 08/11/24 History (Vyvanse) dicyclomine 20 mg tablet 20 mg PO DAILY 08/15/24 08/15/24 History alprazolam 0.25 mg tablet 0.25 mg PO DAILY 10/04/24 10/14/24 History dextroamphetamine-amphetamine ER 5 PO 10/14/24 History mg 24hr capsule,extend release Patient hx anesthesia problems: none Family hx anesthesia problems: none Results Review: All pre-operative results and documents have been reviewed as part of the pre- operative evaluation. [facility] Past Medical History Medical History Crohn's colitis History of sigmoidoscopy Anxiety Depression Hx: UTI (urinary tract infection) History of GI bleed History of inguinal hernia x2 Hx of hemorrhoids IBS (irritable bowel syndrome) Hx of intestinal obstruction Hx of ulcerative colitis History of pneumonia Deviated septum Surgical History Surgical History History of colonoscopy History of hysterectomy History of lumpectomy History of inguinal hernia repair x2 History of appendectomy Family History Family History Mother Hypertension Grandparent Heart disease Heart attack Colon cancer Grandparent Hypertension COPD (chronic obstructive pulmonary disease) Other Cerebrovascular accident Family history of cardiovascular disease Social History Social History Smoking packs per day: 0.5 Smoking cigarettes per day: 10.0 Years smoked: 30 Smoking pack-years: 15.00 Smoking status: Current every day smoker Tobacco type: cigarettes Alcohol intake: current Drinks per week: 3 Alcohol use details: Socially Substance use: never Substance use type: does not use Lack of Transportation: No Lack of Food: Never True Current Housing: I Have Housing Concerned About Future Housing: No Difficulty Paying Gas/Electric Bills: No Difficulty Paying for Meds: No Currently Unemployed: No Education: Trade/Vocational Certificate Difficulty w/ Childcare or Family Care: No Living arrangements: with family Gender identity (if verbalized by the patient): Female Spiritual care concerns: No Anes - Eval Final PreProcedure Day of Procedure 10/14/24 09:24 Patient weight: normal Heart: regular rate and rhythm Lungs: clear to auscultation Airway: Mallampati scale class II Neurological: alert and oriented Last oral intake: >/= 8 hours ASA classification: III Emergent: no Anesthetic plan: proceed Anesthesia type and monitoring: general GIVS and standard monitoring Results Review: All pre-operative results and documents have been reviewed as part of the pre- operative evaluation. Informed Consent: The patient's anesthetic plan and its attendant risks and benefits were discussed with the patient/family/POA. Questions were solicited and answers provided to the satisfaction of the patient/family/POA.
--- NOTE | 2024-10-14 09:38 | PM.HPGS ---
History of Present Illness History of Present Illness Consent: Risks, benefits, and alternatives have been discussed and questions answered. Patient agrees to proceed with procedure. Chief complaint: ulcerative colitis, unspecified intestinal obstruc Narrative: Karlie Ivory is a 49 year old female h/o proctitis diagnosed in early 1999 then UC, she was seeing Dr Tomlin and told that had UC, she was on oral medications but asymptomatic for years and not taking any medications currently, never used biologics. Last colonoscopy 2018 and was told that normal. Review of Systems Review of Systems: All systems reviewed & are unremarkable except as noted in HPI and below Constitutional: Constitutional: Denies headache(s) and Denies weakness Eyes: Eyes: Denies blurry vision ENT: Reports Normal hearing present, Denies headache(s) and Denies neck pain Cardiovascular: Cardiovascular: Denies chest pain and Denies dyspnea Respiratory: Respiratory: Denies dyspnea Gastrointestinal: Gastrointestinal: Reports no additional gastrointestinal complaints Genitourinary: Genitourinary: Denies dysuria Musculoskeletal: Musculoskeletal: Denies neck pain Integumentary/Breasts: Skin/Breast: Denies dry skin Neurologic: Reports Normal hearing present, Denies headache(s) and Denies weakness Psychiatric: Psychiatric: Denies anxiety Endocrine: Endocrine: Denies change in body appearance Hematologic/Lymphatic: Hematologic/Lymphatic: Denies easy bleeding Allergic/Immunologic: Allergic/Immunologic: Denies urticaria PMFSH Past Medical History Medical History (Updated 10/14/24 @ 09:40 by Shaq Saravia MD) History of colitis Crohn's colitis History of sigmoidoscopy Anxiety Depression Hx: UTI (urinary tract infection) History of GI bleed History of inguinal hernia x2 Hx of hemorrhoids IBS (irritable bowel syndrome) Hx of intestinal obstruction Hx of ulcerative colitis History of pneumonia Deviated septum Surgical History Surgical History History of colonoscopy History of hysterectomy History of lumpectomy History of inguinal hernia repair x2 History of appendectomy Family History Family History Mother Hypertension Grandparent Heart disease Heart attack Colon cancer Grandparent Hypertension COPD (chronic obstructive pulmonary disease) Other Cerebrovascular accident Family history of cardiovascular disease Social History Social History Smoking packs per day: 0.5 Smoking cigarettes per day: 10.0 Years smoked: 30 Smoking pack-years: 15.00 Smoking status: Current every day smoker Tobacco type: cigarettes Alcohol intake: current Drinks per week: 3 Alcohol use details: Socially Substance use: never Substance use type: does not use Lack of Transportation: No Lack of Food: Never True Current Housing: I Have Housing Concerned About Future Housing: No Difficulty Paying Gas/Electric Bills: No Difficulty Paying for Meds: No Currently Unemployed: No Education: Trade/Vocational Certificate Difficulty w/ Childcare or Family Care: No Living arrangements: with family Gender identity (if verbalized by the patient): Female Spiritual care concerns: No Meds Home Medications and Allergies Home Medications ?Medication ?Instructions ?Recorded ?Confirmed ?Type estradiol 1 mg tablet 1 mg PO DAILY 09/11/22 10/14/24 History lorazepam 1 mg tablet 1 mg PO DAILY 09/11/22 10/14/24 History lisdexamfetamine 30 mg capsule 30 mg PO DAILY 08/11/24 History (Vyvanse) dicyclomine 20 mg tablet 20 mg PO DAILY 08/15/24 08/15/24 History alprazolam 0.25 mg tablet 0.25 mg PO DAILY 10/04/24 10/14/24 History dextroamphetamine-amphetamine ER 5 PO 10/14/24 History mg 24hr capsule,extend release Allergies Allergy/AdvReac Type Severity Reaction Status Date / Time No Known Allergies Allergy Verified 10/14/24 08:59 Vital Signs Vital Signs - 24 hr 10/14/24 09:02 Temperature 96.8 F L Pulse Rate 97 Respiratory Rate 16 Blood Pressure 123/76 Pulse Oximetry 100 Oxygen Delivery Room Air Assessment and Plan Assessment and plan (1) History of colitis: Code(s): Z87.19 - Personal history of other diseases of the digestive system Status: Acute Assessment and Plan: colonoscopy asymptomatic
[2024-10-14 09:50] VITALS: BP 115/83; PULSE 73; RESP 16; O2SAT 98
[2024-10-14 10:00] VITALS: BP 99/58; PULSE 79; RESP 20; O2SAT 99
[2024-10-14 10:10] VITALS: BP 110/57; PULSE 77; RESP 18; O2SAT 99
--- NOTE | 2024-10-14 14:38 | SUR.PHASEII ---
pt called in after she was home and asked if dr hess would order her some zofran. states she has always taken this after having procedure done. she also stated she forgot to mention to dr hancock a medication she had been taking for stomach spasms , states she has been taking this med off and on for years but could not remember the name of it. let her know would speak with dr hess after his procedure. she voiced understanding. dr lackey informed of pt request, he stated he would go up to office and then return pt call.
== END 2024-10-14 10:22 | disposition home or self-care (01) ==
PROVIDERS: PCP Nurse Practitioner; Referring Provider Obstetrics & Gynecology; Visit Provider Internal Medicine Gastroenterology
PROC: 0DJD8ZZ Inspection of Lower Intestinal Tract, Via Natural or Artificial Opening Endoscopic (ICD-10-PCS; CPT 45378; principal; 2024-10-14 10:00)
DX: Z12.11 Encounter for screening for malignant neoplasm of colon (principal); K57.30 Diverticulosis of large intestine without perforation or abscess without bleeding; F41.9 Anxiety disorder, unspecified; F32.A Depression, unspecified; K58.9 Irritable bowel syndrome, unspecified; F17.210 Nicotine dependence, cigarettes, uncomplicated; Z98.890 Other specified postprocedural states; Z87.19 Personal history of other diseases of the digestive system; Z80.0 Family history of malignant neoplasm of digestive organs; Z82.49 Family history of ischemic heart disease and other diseases of the circulatory system
CPT/HCPCS: 45380; 88305; J2704; J7120